=== PATIENT | male | born 1940 | race Caucasian/White ===

== ENCOUNTER → 2023-11-09 11:35 | Outpatient (REF) | payer MEDICARE, OTHER, SELFPAY | LOC: HWRAD 11:35 | PROVIDERS: ATTENDING PHYSICIAN Internal Medicine Critical Care Medicine; FAMILY PHYSICIAN Family Medicine | DX: R91.8 Other nonspecific abnormal finding of lung field (principal) | CPT/HCPCS: 71250 ==

== ENCOUNTER → 2024-01-27 10:06 | Outpatient (REF) | payer MEDICARE, OTHER, SELFPAY | LOC: HWRAD 10:06 | PROVIDERS: ATTENDING PHYSICIAN Nurse Practitioner Family; FAMILY PHYSICIAN Family Medicine | DX: R91.8 Other nonspecific abnormal finding of lung field (principal) | CPT/HCPCS: 71250 ==

== ENCOUNTER → 2024-03-30 09:07 | Outpatient (REF) | payer MEDICARE, OTHER, SELFPAY | LOC: RAD 09:07 | PROVIDERS: ATTENDING PHYSICIAN Internal Medicine Hematology & Oncology; FAMILY PHYSICIAN Family Medicine | DX: C61 Malignant neoplasm of prostate (principal); C79.51 Secondary malignant neoplasm of bone | CPT/HCPCS: 78306; A9503 ==

== ENCOUNTER → 2024-04-02 07:32 | Outpatient (REF) | payer MEDICARE, OTHER, SELFPAY | LOC: RAD 07:32 | PROVIDERS: ATTENDING PHYSICIAN Internal Medicine Hematology & Oncology; FAMILY PHYSICIAN Family Medicine | DX: C61 Malignant neoplasm of prostate (principal); C79.51 Secondary malignant neoplasm of bone | CPT/HCPCS: 71260; 74177; Q9967 ==

== ENCOUNTER 2024-05-13 14:41 | Emergency (ER) | payer MEDICARE, OTHER, SELFPAY ==
[2024-05-13 14:49] VITALS: BP 115/83
[2024-05-13 16:03] VITALS: BP 133/75
--- NOTE | 2024-05-13 16:10 | ED.GENMED ---
History of Present Illness
General
Chief Complaint: Breathing Problem
Time Seen by Provider: 05/13/24 15:56
History of Present Illness
History of Present Illness:
TIME OF INITIAL ENCOUNTER: 4 PM
HPI: The patient presents due to shortness of breath but also has weakness. He states he was hospitalized for 'a lung infection last year' and was told that his 'prostate cancer is back'. Over the past month, he has been feeling weaker and more
short of breath. He has an upcoming appoint with Dr. Carter. He lost weight while he was in the hospital last year and then gained the weight back. He has no lower extremity edema.
EXAM:
GENERAL: Appears somewhat weak and frequently keeps his eyes closed during examination, elevated BMI
HEENT: Moist oral mucosa
CARDIOVASCULAR: No murmurs, normal heart rate, regular rhythm, No chest wall tenderness
PULMONARY: No respiratory distress, breath sounds are clear and equal
ABDOMEN: Soft with no peritoneal signs, no tenderness
NEUROLOGIC: Good strength all extremities, no coordination deficits
PSYCHIATRIC: Appropriate mental status, normal insight and judgement
EXTREMITIES: Nontender, no edema, moves all extremities equally
SKIN: No rash, no lesions
NUMBER AND COMPLEXITY OF PROBLEMS ADDRESSED AT THE ENCOUNTER
� Chronic conditions affecting care: Prostate cancer
� Acute Exacerbation and/or Progression of Chronic Illness: This is a subacute problem
� Differential Diagnosis includes: Anemia, progression of cancer, heart failure, pneumonia
AMOUNT AND/OR COMPLEXITY OF DATA TO BE REVIEWED AND ANALYZED
� I performed an independent evaluation of and my interpretation is:
EKG: Sinus 91, left axis deviation, poor R wave progression no significant change from 04/01/2023
CT: CTA shows no PE
X-rays:
Laboratory Studies: Troponin 0.051, in March it was 0.069, white count hemoglobin normal, D-dimer 0.85
Other:
� Review of other/old records: The patient was admitted here with fatigue and shortness of breath 1 year ago. At that time he had a CTA that was negative for PE and was found to have a small pleural effusion. There also was
concern for metastatic disease at that time. Echo last year was relatively unremarkable
� Clinical information was obtained by an independent historian: Spoke to
� Prescriptions/Medications Considered but not given:
� Further testing considered but not performed:
RISK OF COMPLICATIONS AND/OR MORBIDITY OR MORTALITY OF PATIENT MANAGEMENT
� Social determinants of health affecting care:
Lives at home
� Discussion with other providers: Discussed w/ Raul 'SOB and weak for about a year, may be worse over the past month. RA sats as high as 100% here. Normal CBC, ddimer slightly high, CTA shows no PE, BNP 735 (lower than when
admitted for same last year), trop 0.051 (was flat around 0.060 last year). Echo from last year relatively unremarkable. Not sure there's much to keep him for, but please let me know what you think. I'm thinking he could be managed as outpt, but
says doesn't have appt to see you until June.' - he agrees w/ outpt mgnt and he will have his office reach out to him next week for close follow-up
� Escalation of care including admission/observation vs risk of discharge considered: No clear indication for admission to the hospital
ANY OTHER UPDATES:
7 PM: On reassessment, patient remains well-appearing, room air sats of 100%. Relatively unremarkable ED workup, troponin is less than it was last year with since symptoms. BNP is lower, CTA shows no PE.
Past History
Past History
ED Past Medical History: Cancer (Prostate cancer), Hypercholesterolemia and Other (Rheumatic heart disease)
ED Past Surgical History: Orthopedic and Urological
Phy Exam
Physical Exam
Physical Exam:
See HPI
Scores
Heart Failure Risk
Heart Failure Risk Score: Not Applicable
Course
Orders/Labs/Results
Orders:
Orders
05/13/24 16:08
Electrocardiogram (*1) Urgent
Reason for Study: Shortness of Breath
EKG- Treatment ONCE
05/13/24 16:32
Complete Blood Count/With Diff Urgent
Comprehensive Metabolic Panel Urgent
D-Dimer Urgent
Magnesium Urgent
NT-proBNP Urgent
TSH Reflex To Free T4 Urgent
Troponin I Urgent
05/13/24 17:11
CT Chest Pe Study Urgent
Comment:
Reason For Exam: sob high ddimer
Abnormal Lab Results
05/13/24
16:32
MCHC 32.1 L g/dL
(33.0-37.0)
RDW 15.4 H %
(11.5-14.5)
Absolute Neuts (auto) 6.9 H 10^3/uL
(1.4-6.5)
Absolute Monos (auto) 1.1 H 10^3/uL
(0.1-0.6)
Lymphocytes % 18.2 L %
(20.5-51.1)
Monocytes % 10.5 H %
(1.7-9.3)
D-Dimer 0.85 H ug/mlFEU
(0.00-0.50)
BUN 21 H mg/dl
(9-20)
Glucose 107 H mg/dl
(70-99)
Alkaline Phosphatase 244 H U/L
(38-126)
Troponin I 0.051 H* ng/ml
05/13/24 16:32
05/13/24 16:32
Vital Signs
Initial and Last Documented VS:
Initial Vital Signs
Temp Pulse Resp BP Pulse Ox
97.9 F 101 24 115/83 98
05/13/24 14:49 05/13/24 14:49 05/13/24 14:49 05/13/24 14:49 05/13/24 14:49
Last Documented Vital Signs
Temp Pulse Resp BP Pulse Ox
97.9 F 101 22 133/79 100
05/13/24 14:49 05/13/24 18:22 05/13/24 18:22 05/13/24 18:25 05/13/24 18:22
*Critical Care Note
Total Time (30-74mins, 75-104mins- exclusive of procedures): Not Applicable
ED Attending Note
-
Portions of this chart may have been created with voice recognition software.� Occasional wrong word or��sound alike� substitutions may have occurred due to the inherent limitations of voice recognition software.
Discharge Plan
Departure
Patient Disposition: Home (Routine Discharge)
Date of Disposition: 05/13/24
Time of Disposition: 18:58
Patient with high blood pressure during this ER visit?: Yes
Discharge Problem:
Chronic shortness of breath
Instructions: Shortness of Breath (Dyspnea) (DC)
Prescriptions:
No Action
Centrum Silver Ultra Men's 1 EACH tablet
1 ea PO DAILY
Move Free
1 tab PO DAILY
trazodone 50 mg Tablet
50 mg PO HS
amitriptyline 10 mg Tablet
25 mg PO HS
metoprolol succinate [Toprol XL] 25 mg tablet extended release 24 hr
25 mg PO DAILY Qty: 30 0RF
bicalutamide 50 mg Tablet
50 mg PO DAILY
furosemide 20 mg Tablet
20 mg PO DAILY
Rx Instructions:
last dose 04/26/23
Referrals:
Mauro Cervantes MD [Family Provider] -
Activity Restrictions/Additional Instructions:
I discussed everything with Dr. Carter. He agrees that there is no clear indication for you to be kept in the hospital. However he did say that his office is going to reach out to you to try to get you in sooner for more of an evaluation. Return
here if worse or other concern. I also recommend he follow your primary care doctor.
Interventions
Interventions:
*Risk Screen - Suicide Last Done: 05/13/24 16:22
*General Assessment Last Done: 05/13/24 16:22
*Neglect/Abuse Screening Last Done: 05/13/24 16:22
ED- Fall Risk Assessment Last Done: 05/13/24 16:30
*ED COVID-19 Vaccine History Last Done: 05/13/24 14:49
ED- Cardiac Assessment Last Done: 05/13/24 16:30
ED- Pulmonary Assessment Last Done: 05/13/24 16:30
Discharge Date and Time
Print Language: LAO
[2024-05-13 16:25] VITALS: BMI 30.6
[2024-05-13 16:48] LABS: % Basophils 0.6 % (0-2); % Eosinophils 1.3 % (0-6); % Immature Granulocytes 0.4 % (0-0.5); % Lymphocytes 18.2 % (20.5-51.1); % Monocytes 10.5 % (1.7-9.3); Absolute Basophils 0.1 10^3/uL (0-0.2); Absolute Eosinophils 0.1 10^3/uL (0-0.7); Absolute Lymphocytes 1.8 10^3/uL (1.2-3.4); Absolute Monocytes 1.1 10^3/uL (0.1-0.6); Absolute Neutrophils 6.9 10^3/uL (1.4-6.5); Hematocrit 46.4 % (39.0-52.0); Hemoglobin 14.9 g/dL (13.0-18.0); Mean Corp Hgb Conc. 32.1 g/dL (33.0-37.0); Mean Corpuscular Hgb 28.3 pg (27.0-31.0); Mean Platelet Volume 9.5 fL (7.4-10.4); Nucleated Red Blood Cells % 0 % (-); Platelet Count 361 10^3/uL (130-400); Red Blood Cell Count 5.27 10^6/uL (4.70-6.10); Red Cell Dist. Width 15.4 % (11.5-14.5)
[2024-05-13 17:00] VITALS: BP 144/77
[2024-05-13 17:05] LABS: D-Dimer 0.85 ug/mlFEU (0.00-0.50)
[2024-05-13 17:07] LABS: ALT (SGPT) 23 U/L (0-50); AST (SGOT) 34 U/L (17-59); Albumin 4.1 g/dl (3.5-5.0); Alkaline Phosphatase 244 U/L (38-126); Blood Urea Nitrogen 21 mg/dl (9-20); Calcium 9.6 mg/dl (8.4-10.2); Carbon Dioxide 22 mmol/L (22-30); Chloride 106 mmol/L (98-107); Estimated Creatinine Clearance 107 ml/min; Glucose 107 mg/dl (70-99); Potassium 4.7 mmol/L (3.5-5.1); Sodium 140 mmol/L (135-145); Total Bilirubin 0.5 mg/dl (0.2-1.3); Total Protein 6.8 g/dl (6.3-8.2); eGFR > 60.00
[2024-05-13 17:22] LABS: NT-proBNP 735 pg/ml; Troponin I 0.051 ng/ml
[2024-05-13 17:37] LABS: TSH Reflex To Free T4 1.27 uIU/ml (0.47-4.68)
[2024-05-13 18:14] VITALS: BP 64/40
[2024-05-13 18:25] VITALS: BP 133/79
== END 2024-05-13 19:24 | disposition home or self-care (01) ==
LOC: EMR 14:41
PROVIDERS: EMERGENCY PHYSICIAN Emergency Medicine; FAMILY PHYSICIAN Family Medicine
DX: R06.02 Shortness of breath (principal); R03.0 Elevated blood-pressure reading, without diagnosis of hypertension
CPT/HCPCS: 99285; 71275; 80053; 83735; 83880; 84443; 84484; 85025; 85379; 93005; Q9967

== ENCOUNTER → 2024-05-21 08:34 | Outpatient (REF) | payer MEDICARE, OTHER, SELFPAY | LOC: DHCBC/DCA 08:34 | PROVIDERS: ATTENDING PHYSICIAN Internal Medicine Cardiovascular Disease; FAMILY PHYSICIAN Family Medicine | DX: R06.02 Shortness of breath (principal) | CPT/HCPCS: 78452; 93017; A9500; J2785 ==

== ENCOUNTER → 2024-05-30 12:36 | Outpatient (REF) | payer MEDICARE, OTHER, SELFPAY | LOC: HWRAD 12:36 | PROVIDERS: ATTENDING PHYSICIAN Internal Medicine Hematology & Oncology; FAMILY PHYSICIAN Family Medicine; REFERRING PHYSICIAN Internal Medicine Hematology & Oncology | DX: C61 Malignant neoplasm of prostate (principal); C79.51 Secondary malignant neoplasm of bone | CPT/HCPCS: 70492; 71260; Q9967 ==

== ENCOUNTER 2024-06-11 04:19 | Inpatient (IN) | payer MEDICARE, OTHER, SELFPAY ==
[2024-06-10 22:29] VITALS: BP 142/76; BMI 30.6
[2024-06-10 22:32] VITALS: BP 142/76
[2024-06-10 22:49] LABS: % Basophils 0.3 % (0-2); % Eosinophils 0.7 % (0-6); % Immature Granulocytes 0.4 % (0-0.5); % Lymphocytes 12.7 % (20.5-51.1); % Monocytes 8.6 % (1.7-9.3); % Neutrophils 77.3 % (42.2-75.2); Absolute Basophils 0.1 10^3/uL (0-0.2); Absolute Eosinophils 0.1 10^3/uL (0-0.7); Absolute Immature Granulocytes 0.1 10^3/uL (0-0.05); Absolute Lymphocytes 2.1 10^3/uL (1.2-3.4); Absolute Monocytes 1.4 10^3/uL (0.1-0.6); Absolute Neutrophils 12.7 10^3/uL (1.4-6.5); Hematocrit 48.6 % (39.0-52.0); Hemoglobin 15.9 g/dL (13.0-18.0); Mean Corp Hgb Conc. 32.7 g/dL (33.0-37.0); Mean Corpuscular Hgb 28.1 pg (27.0-31.0); Mean Corpuscular Volume 85.9 fL (80.0-94.0); Mean Platelet Volume 9.6 fL (7.4-10.4); Nucleated Red Blood Cells % 0 % (-); Platelet Count 326 10^3/uL (130-400); Red Blood Cell Count 5.66 10^6/uL (4.70-6.10); Red Cell Dist. Width 15.5 % (11.5-14.5); White Blood Cell Count 16.4 10^3/uL (4.8-10.8)
--- NOTE | 2024-06-10 22:55 | ED.GENMED ---
History of Present Illness
<DUSTY Gil - Last Filed: 06/10/24 23:43>
General
Chief Complaint: Chest Pain
Source: patient
Time Seen by Provider: 06/10/24 22:36
Nursing documentation reviewed up to this point in time: agreed with
History of Present Illness
History of Present Illness:
Pt is a 83 yo M with a history of prostate cancer who presents to the ED tonight via EMS with chest pain, shortness of breath and weakness. Pt states that the symptoms have been present for over a month now. He states that his chest pain got worse
tonight, so he came to the ED. Pt states that first his pain started in his back and is now located in his left chest. Pt also admits to having worsening shortness of breath with activity. Pt reports that his feet feel heavy when walking which
causes him weakness. Pt reports that he typically coughs up clear mucus. Pt denies hemoptysis, diarrhea, hematochezia, fever, chills, headache, dizziness, lightheaded, abdominal pain, recent illness. Pt states that he is on methylprednisone and
oxycodone for his symptoms. He states that the oxycodone initial helped with his pain, but that it does not help to alleviate his symptoms anymore.
Pt was seen in ED on 05/13 for shortness of breath and weakness. Chest CT showed a pulmonary nodule. Pt states that he was supposed to follow up with pulmonology but states that he did not see them. Pt states that he has a history of prostate cancer
and had his prostate removed in 2002. Pt states that recently his PSA has increased and he is now taking cancer medicine Xtandi. Pt states that he follows up with cardiology, urology, oncology, and PCP.
Past History
<DUSTY Gil - Last Filed: 06/10/24 23:43>
Past History
ED Past Medical History: Cancer (Prostate cancer), Hypercholesterolemia and Other (Rheumatic heart disease)
ED Past Surgical History: Orthopedic and Urological
Review of Systems
<Peg Suggs [facility] - Last Filed: 06/10/24 23:43>
Review of Systems
Allergies reviewed?: Yes
Constitutional: Reports no symptoms
EENT: Reports no symptoms
Respiratory: Reports cough and other (shortness of breath)
Cardiac: Reports chest pain
ABD/GI: Reports no symptoms
: Reports no symptoms
Neurological: Reports weakness
Phy Exam
<Peg Suggs [facility] - Last Filed: 06/10/24 23:43>
General Physical Exam
General Presentation: well appearing
General age: appears stated age
General Skin: warm
General Habitus: normal
General Mental: alert
General Hydration: appears well hydrated
Cardiovascular Exam
Cardiovascular Exam: regular rate/rhythm and no edema
Pulmonary Exam
Pulmonary Exam: lungs clear
Gastrointestinal Exam
Gastrointestinal Exam: normal bowel sounds, non tender, soft and distended
Skin Exam
Skin Exam: normal color
Scores
<Nathaniel Miller DO - Last Filed: 06/11/24 02:06>
Heart Failure Risk
Heart Failure Risk Score: Yes
History of Stroke or TIA: No
History of intubation for respiratory distress: No
Heart rate on ED arrival >/= 110: No
SaO2 <90% on arrival on room air: No
HR >/=110 during 3min walk test (or too ill to perform test): Yes
ECG has acute ischemic changes: No
Urea >/=12mmol/L (BUN 33.6mg/dL): Yes
Serum CO2>/=35mmol/L: No
Troponin I or T elevated to TX Level (0.4mg/dL): No
NT-proBNP >/=5,000ng/L (5,000pg/ml): No
HF Risk Score: 3
Admission Status: HIGH RISK 15.9% Consider SNF treatment or admission to hospital
Heart Score for Chest Pain Patients
STEMI patient?: No
History: Moderately Suspicious
ECG: Nonspecific Repolarization
Age: >/= 65 years
Risk Factors: 1 or 2 Risk Factors
Troponin: >1 - <3 x Normal Limit
Heart Score for Chest Pain Patients: 6
Heart Score Risk: 20.3% MACE over next 6 weeks
Course
<Peg Suggs, [facility] - Last Filed: 06/10/24 23:43>
Orders/Labs/Results
Orders:
Orders
06/10/24 22:34
EKG [Electrocardiogram (*1)] Urgent
Reason for Study: Tachycardia
EKG- Treatment ONCE
06/10/24 22:41
Complete Blood Count/With Diff Urgent
Comprehensive Metabolic Panel Urgent
Pro-BNP [NT-proBNP] Urgent
Troponin I Urgent
06/11/24 00:30
CT Chest Pe Study Urgent
Comment:
Reason For Exam: Chest pain, dyspnea, prostate cancer
Abnormal Lab Results
06/10/24
22:41
WBC 16.4 H 10^3/uL
(4.8-10.8)
MCHC 32.7 L g/dL
(33.0-37.0)
RDW 15.5 H %
(11.5-14.5)
Abs Immat Gran (auto) 0.1 H 10^3/uL
(0-0.05)
Absolute Neuts (auto) 12.7 H 10^3/uL
(1.4-6.5)
Absolute Monos (auto) 1.4 H 10^3/uL
(0.1-0.6)
Neutrophils % 77.3 H %
(42.2-75.2)
Lymphocytes % 12.7 L %
(20.5-51.1)
BUN 33 H mg/dl
(9-20)
Glucose 158 H mg/dl
(70-99)
Alkaline Phosphatase 269 H U/L
(38-126)
Troponin I 0.094 H* ng/ml
06/10/24 22:41
06/10/24 22:41
Vital Signs
Initial and Last Documented VS:
Initial Vital Signs
Temp Pulse Resp BP Pulse Ox
98.1 F 95 24 142/76 97
06/10/24 22:29 06/10/24 22:29 06/10/24 22:29 06/10/24 22:29 06/10/24 22:29
Last Documented Vital Signs
Temp Pulse Resp BP Pulse Ox
98.1 F 91 24 139/77 95
06/10/24 22:29 06/10/24 23:45 06/10/24 23:45 06/10/24 23:00 06/10/24 23:45
<Nathaniel Miller, DO - Last Filed: 06/11/24 02:06>
Orders/Labs/Results
Orders:
Orders
06/10/24 22:34
EKG [Electrocardiogram (*1)] Urgent
Reason for Study: Tachycardia
EKG- Treatment ONCE
06/10/24 22:41
Complete Blood Count/With Diff Urgent
Comprehensive Metabolic Panel Urgent
Pro-BNP [NT-proBNP] Urgent
Troponin I Urgent
06/11/24 00:30
CT Chest Pe Study Urgent
Comment:
Reason For Exam: Chest pain, dyspnea, prostate cancer
Abnormal Lab Results
06/10/24
22:41
WBC 16.4 H 10^3/uL
(4.8-10.8)
MCHC 32.7 L g/dL
(33.0-37.0)
RDW 15.5 H %
(11.5-14.5)
Abs Immat Gran (auto) 0.1 H 10^3/uL
(0-0.05)
Absolute Neuts (auto) 12.7 H 10^3/uL
(1.4-6.5)
Absolute Monos (auto) 1.4 H 10^3/uL
(0.1-0.6)
Neutrophils % 77.3 H %
(42.2-75.2)
Lymphocytes % 12.7 L %
(20.5-51.1)
BUN 33 H mg/dl
(9-20)
Glucose 158 H mg/dl
(70-99)
Alkaline Phosphatase 269 H U/L
(38-126)
Troponin I 0.094 H* ng/ml
06/10/24 22:41
06/10/24 22:41
Vital Signs
Initial and Last Documented VS:
Initial Vital Signs
Temp Pulse Resp BP Pulse Ox
98.1 F 95 24 142/76 97
06/10/24 22:29 06/10/24 22:29 06/10/24 22:29 06/10/24 22:29 06/10/24 22:29
Last Documented Vital Signs
Temp Pulse Resp BP Pulse Ox
98.1 F 91 24 139/77 95
06/10/24 22:29 06/10/24 23:45 06/10/24 23:45 06/10/24 23:00 06/10/24 23:45
<DUSTY Gil - Last Filed: 06/10/24 23:43>
MDM/Problems Addressed
Differential Diagnosis Includes:
Metastasis, TX, CHF
<DUSTY Gil - Last Filed: 06/10/24 23:43>
*Critical Care Note
Total Time (30-74mins, 75-104mins- exclusive of procedures): Not Applicable
ED Attending Note
<DUSTY Gil - Last Filed: 06/10/24 23:43>
-
Portions of this chart may have been created with voice recognition software.� Occasional wrong word or��sound alike� substitutions may have occurred due to the inherent limitations of voice recognition software.
<Nathaniel Miller DO - Last Filed: 06/11/24 02:06>
ED Attending Note
Patient seen and examined by attending physician: Yes
I performed the substantive portion of visit, reviewed & personally made and approve the management plan that is documented in note by myself or JAMES.: Yes
ED Attending Note:
83-year-old male presents to the emergency department for shortness of breath. He states he has been having shortness of breath and chest pain off and on for the last month. Tonight his chest pain worsened and his shortness of breath became much
more severe. Patient has a history of prostate cancer and longstanding weakness. Patient has been feeling very weak lately. Patient was seen in conjunction with the PA student. I have reviewed and agree with the history and treatment plan
presented. On my independent physical exam, patient is awake, alert, and oriented x3
Vital signs are stable. Patient not hypoxic
Nursing note reviewed. I agree with nursing documentation up to this point in time.
Home Meds and allergies reviewed.
NUMBER AND COMPLEXITY OF PROBLEMS ADDRESSED AT THE ENCOUNTER
� Chronic conditions affecting care: Return of prostate cancer, weakness,
� Acute Exacerbation and/or Progression of Chronic Illness:
� Differential Diagnosis includes: Worsening of cancer, anemia chronic disease, pneumonia, CHF, lytic lesions in the spine
AMOUNT AND/OR COMPLEXITY OF DATA TO BE REVIEWED AND ANALYZED
I performed an independent evaluation of the following and my interpretation is:
EKG: EKG shows normal sinus rhythm 96 with present. Compared with previous EKG dated 2023, fusion complexes are present
Pulse Ox: Not Hypoxic
Corrections Lieutenant: Sinus Rhythm
CT:CTA CHEST w iv contrast
IMPRESSION:
Comparison: 05/13/2024.
Good bolus, mild motion artifact. No evidence of a pulmonary embolism.
Mild cardiomegaly with coronary artery disease.
No acute thoracic aortic pathology.
Low lung volumes with dependent atelectasis. No new focal consolidation. Unchanged pulmonary nodules within the right middle and lower lobes.
Extensive blastic metastatic disease, similar compared to the prior. The largest lesion involves the T2 vertebral body with possible slight extension into the ventral epidural space.
Results faxed/electronically transmitted to the ER and radiology department at 1:49 AM ET.
Andrey Cohen M.D.
X-rays:
Ultrasound:
Laboratory Studies: Troponin is elevated up from 0.51 at previous ER visit 1 month ago. White blood cell count is elevated at 16.4. Up from 10.0 on 05/13/2024
Other:
Review of other/old records: CT chest PE study was negative for PE on 05/13/2024
Clinical information was obtained by an independent historian:
Prescriptions/Medications Considered but not given:
Further testing considered but not performed:
RISK OF COMPLICATIONS AND/OR MORBIDITY OR MORTALITY OF PATIENT MANAGEMENT
Social determinants of health affecting care: Good Social Support
Discussion with other providers:
Escalation of care including admission/observation vs risk of discharge considered: After being observed in the emergency department, patient is not stable for discharge. Patient to be admitted to the hospitalist this.
CRITICAL CARE NOTE: Not applicable
Total Time (exclusive of procedures):
Update:
Discharge Plan
Departure
Patient Disposition: Admit
Date of Disposition: 06/11/24
Time of Disposition: 02:04
Admit to: Telemetry
Presentation/result/management discussed w/ accepting MD/DO: Hospitalist
Condition: Fair
Discharge Problem:
Chest pain, Elevated troponin
Prescriptions:
No Action
Centrum Silver Ultra Men's 1 EACH tablet
1 ea PO DAILY
furosemide 20 mg Tablet
40 mg PO DAILY
pantoprazole 20 mg Tablet,Delayed Release (Dr/Ec)
20 mg PO DAILY
methylprednisolone 24 mg Tablet
240 mg PO
oxycodone 5 mg Tablet
5 mg PO Q4H PRN (Reason: pain)
Xtandi 40 mg Tablet
40 mg PO DAILY
Referrals:
Mauro Cervantes MD [Family Provider] -
Interventions
Interventions:
*Risk Screen - Suicide Last Done: 06/10/24 22:29
*General Assessment Last Done: 06/10/24 22:29
*Neglect/Abuse Screening Last Done: 06/10/24 22:29
ED- Fall Risk Assessment Last Done: 06/10/24 22:29
*ED COVID-19 Vaccine History Last Done: 06/10/24 22:29
ED- Cardiac Assessment Last Done: 06/10/24 22:38
Discharge Date and Time
Print Language: CHINESE
[2024-06-10 23:00] VITALS: BP 139/77
[2024-06-10 23:04] LABS: ALT (SGPT) 22 U/L (0-50); AST (SGOT) 35 U/L (17-59); Albumin 4.1 g/dl (3.5-5.0); Alkaline Phosphatase 269 U/L (38-126); Blood Urea Nitrogen 33 mg/dl (9-20); Calcium 9.6 mg/dl (8.4-10.2); Carbon Dioxide 26 mmol/L (22-30); Chloride 102 mmol/L (98-107); Estimated Creatinine Clearance 106 ml/min; Glucose 158 mg/dl (70-99); Potassium 4.6 mmol/L (3.5-5.1); Sodium 139 mmol/L (135-145); Total Bilirubin 0.5 mg/dl (0.2-1.3); Total Protein 6.9 g/dl (6.3-8.2); eGFR > 60.00
[2024-06-10 23:23] LABS: NT-proBNP 934 pg/ml; Troponin I 0.094 ng/ml
[2024-06-11] VITALS (13 sets, daily range): BP systolic 130–176; BP diastolic 66–92; BMI 30.1
[2024-06-11] MEDS: DILAUDID 0.5 MG IV (02:24)
--- NOTE | 2024-06-11 04:09 | HPS.HSE ---
Family Physician
-
Family Physician: Mauro Cervantes
Chief Complaint
-
Chest Pain
History of Present Illness
Patient is an 83y M with PMH significant for metastatic prostate cancer who presents to ED complaining of chest pain. Patient states that he has been having intermittent left-sided chest pain for the past few months. He has been evaluated as an
outpatient by his PCP and Cardiology. He underwent stress test on 05/21/24 which revealed no evidence for active ischemia. LVEF was reportedly low - though visual estimation was stated to be normal.
Patient notes that he has continued to have intermittent symptoms. His pain is associated with 'heavy' feet - 'feels like walking on cinder blocks' as well as SOB with activity / exertion.
He denies any cough, fevers / chills, N/V/D or urinary complaints.
He was started on steroid dose pack for pain about 3 weeks ago. He was started on oxycodone for pain control about one week ago - this worked for a time.
Over the past 2 days however, his pain has again increased despite these medications.
This evening his pain was severe and he presented to the ED for further evaluation.
Patient states that XRT has been discussed for his prostate cancer; however, he has yet to start this.
Medical History
Past Medical History
Past Medical History: Reports Other
Additional Past Medical History:
Prostate Cancer s/p Chemo then Prostatectomy - Recurrence 2022
Dyslipidemia
Rheumatic Fever (9yo)
Bladder Stones
Osteoarthritis
Past Surgical History: Reports Other
Additional Past Surgical History:
Prostatectomy
Bilateral BRENDAN
Cystoscopy / Bladder Stone removal
Skin Cancer Excision
T&A
Social History
Tobacco: Non-smoker
Alcohol: Occasional
Drug: None
Family History
Family History: Other (Father / Brother: Prostate Cancer)
Allergies / Home Medications
Allergies reflects when Allergies were last updated in [facility].
Home Medications with original date entered in [facility]
Allergy/Medication List:
Allergies
Allergy/AdvReac Type Severity Reaction Status Date / Time
tetanus toxoid, adsorbed Allergy Hives Verified 05/13/24 14:57
Home Medications
opazbihr-nm-syxnx 300 mcg-K 60 mcg-lycop 600 mcg-lutein 300 mcg tablet (Centrum Silver Ultra Men's) 1 ea PO DAILY Supplement 04/10/10
furosemide 20 mg tablet 40 mg PO DAILY 04/26/23
enzalutamide 40 mg tablet (Xtandi) 160 mg PO DAILY 06/11/24
methylprednisolone 24 mg tablet 24 mg PO DAILY 06/11/24
oxycodone 5 mg tablet 5 mg PO Q4H PRN pain 06/11/24
pantoprazole 20 mg tablet,delayed release 20 mg PO DAILY 06/11/24
Review of Systems
-
History Source: Patient
A 12 point ROS was completed and negative except as noted: Yes
Constitutional: Reports Fatigue; Denies Fever or Chills
EENT: Denies Sore Throat
Respiratory: Reports Trouble Breathing; Denies Cough
Cardiac: Reports Chest Pain; Denies Diaphoresis, Palpitations or Syncope
Abdomen/GI: Denies Abdominal Pain, Nausea, Vomiting, Diarrhea or Bloody Stools
: Denies Dysuria, Frequency or Flank Pain
Musculoskeletal: Denies Joint Pain, Joint Swelling or Edema
Neurological: Denies Dizzy or Headache
Psych: Denies Depression or Anxiety
Physical Exam
Vital Signs
Vital Signs
Temp Pulse Resp BP Pulse Ox
98.1 F 84 16 154/86 96
06/10/24 22:29 06/11/24 03:00 06/11/24 03:00 06/11/24 02:00 06/11/24 03:00
Physical Exam
General: Other (83y M in no acute distress.)
HEENT: Moist mucous membranes and PERRLA
Respiratory: Clear; No Wheezes, Rales or Rhonchi
Cardiac: S1/S2 and Regular Rhythm; No Murmur
GI: Soft, Non Tender, Non Distended and Normal Bowel Sounds
Musculoskeletal: No Clubbing, No Cyanosis and No Edema
Neuro: AO x 3
Laboratory Results
-
06/10/24 22:41
06/10/24 22:41
Laboratory Results
Total Bilirubin 0.5 mg/dl (0.2-1.3) 06/10/24 22:41
AST 35 U/L (17-59) 06/10/24 22:41
ALT 22 U/L (0-50) 06/10/24 22:41
Alkaline Phosphatase 269 U/L (38-126) H 06/10/24 22:41
Troponin I 0.094 ng/ml H* 06/10/24 22:41
Impression/Plan
-
A/P: Patient is an 83y M with PMH significant for metastatic prostate cancer who presents to ED complaining of chest pain.
Left Sided Chest Pain
- Admit for further evaluation and treatment.
- Suspect that discomfort is related to bony metastatic disease.
- Had recent stress test which was unremarkable.
- Troponin mildly elevated - not significantly changed from prior values.
- Continue to follow to peak and monitor for changes in symptoms.
- Check Echo (was scheduled as an outpatient). EF unclear (measured at 39% on stress - but visually normal per report).
- Hold Lasix for now as patient does not appear grossly volume overloaded.
- Cardiology evaluation.
- Adjust pain control regimen as needed for improvement in symptoms.
Metastatic Prostate Cancer
- As above. Continue methylprednisolone.
- Continue oxycodone and increase to 10mg dose.
- Oncology evaluation - would likely benefit from XRT for additional pain control.
- Continue Xtandi.
DVT Prophylaxis: SCDs
Code Status: Full
--- NOTE | 2024-06-11 07:24 | PTCARENOTE ---
received patient from the ED. AAOx3. complaining of left chest pain. 1/10 pain at rest. 5/10 pain with inhalation. non radiating pain. lungs clear throughout, 97% on RA. SR on tele. complains of shortness of breath-chronic per patient. patient self
caths at home; 2x a day. reviewed plan of care with patient and verbalized understanding. NPO.
patients medications sent to pharmacy.
--- NOTE | 2024-06-11 07:26 | W.PN.HOSP.TC ---
Today's Communication/Plan
-
F/U further cardiology and Oncology recs
TTE
monitor pain on increased oxycodone dosing and lidocaine patch
post cardiology recs/ Trop declining will order PT
Assessment / Plan
Assessment / Plan
Mr. Brandyn Pena is a 83 yo man with hx metastatic prostate CA with on-going outpatient work-up left-sided chest pain (neg stress test 05/21/24) s/p steroid dose pack presents with worsening pain.
chest CT - no acute thoracic aortic pathology; extensive blastic metastatic disease similar to prior - largest involved T2 vertebral body
Left Sided Chest Pain
- Troponin 0.094
- discomfort may be 2/2 bony metastatic disease versus ACS although recent stress test unremarkable and history not very convincing.
- Check Echo (was scheduled as an outpatient). EF unclear (measured at 39% on stress - but visually normal per report).
- Hold Lasix for now as patient does not appear grossly volume overloaded.
- Cardiology evaluation.
- trial of Lidocaine patch
- QUILLER HAND oxycodone increased from 5mg q4h PRN to 10mg
- IV morphine PRN
- PT/OT
Metastatic Prostate Cancer
- As above. Continue methylprednisolone.
- Continue oxycodone and increase to 10mg dose.
- Oncology evaluation - would likely benefit from XRT for additional pain control.
- Continue Xtandi.
DVT Prophylaxis: SCDs
Code Status: Full
Anticipated Discharge: 24 - 48 hours
Subjective/Interval History
-
Date of Service: June 11, 2024
he has pain left side of chest not very tender to palpation but hurts with any twisting of his body or trying to get up therefore has difficultly ambulating
Objective Data
-
Labs:
Laboratory Results
06/10/24
22:41
WBC 16.4 H
Hgb 15.9
Hct 48.6
Plt Count 326
Sodium 139
Potassium 4.6
Chloride 102
Carbon Dioxide 26
BUN 33 H
Creatinine 0.7
Glucose 158 H
Calcium 9.6
Total Bilirubin 0.5
AST 35
ALT 22
Alkaline Phosphatase 269 H
Vital Signs:
Vital Signs
Temp Pulse Resp BP Pulse Ox
97.9 F 88 16 151/70 96
06/11/24 06:21 06/11/24 06:21 06/11/24 06:21 06/11/24 06:21 06/11/24 06:21
Review of Systems
-
History Source: Patient
All other systems: Reviewed and negative
Physical Exam
-
General: No Apparent Distress and Conversant
HEENT: PERRLA
Respiratory: Clear to Auscultation; Negative Wheezes
Cardiac: Regular Rhythm and S1/S2
GI: Soft and Nontender
Musculoskeletal: No Edema
Skin: Warm and Dry; Negative Rash
Neuro: AO x 3
Psych: Calm
Data Reviewed
-
Diagnostic Radiology: Report Reviewed by me
Labs: Labs Reviewed by me
--- NOTE | 2024-06-11 07:39 | CON.CAR ---
Addendum entered and electronically signed by Asya Ochoa MD 06/11/24 12:23:
I saw and examined the patient.
The [employer]'s note was reviewed and I agree with the note.
Comment: He is here for recurrent chest discomfort mildly elevated troponins with stable but abnormal EKG in the setting of metastatic prostate cancer. Some features of his chest pain are atypical but then other features such as dyspnea on exertion
when walking his dog is concerning for coronary disease.
I spoke with oncology (Dr. Patterson). Patient is on first-line therapy for metastatic prostate cancer and feels that survival in this patient is greater than 1 year and that there is no contraindication to aggressive cardiac treatment.
Discussed at length the risks and benefits of proceeding with cardiac catheterization to define coronary anatomy in the setting of recurrent chest pain and abnormal troponins. Recent stress test noted.
Plan at this time:
-Left heart catheterization in the morning. N.p.o. after midnight.
-IV heparin
-Toprol-XL for blood pressure, newly added. Continue to follow.
-Atorvastatin for cholesterol.
-EKG is stable with stable QT on current prostate cancer treatment.
-Oncology tells me his PSA is rising they are likely going to change medications in the future. Follow-up with oncology. Follow-up with urology (Dr. Mendez).
Exam is stable. No heart failure on exam. No significant murmurs and clear lungs. Echocardiogram pending.
Original Note:
Consultation
Consultation Request
Date/Time Consultation Requested: 06/11/24 at 0626
Date/Time Consultation Performed: 06/11/24 at 0817
Requesting Provider: Dr. Pop
Performing Provider: Dr. Asya Ochoa
Reason for Consultation: Chest pain
Medical History
-
History of Present Illness:
Patient came to ER last night with chest pain and recurrent JORGENSEN and is now admitted with elevated troponin and cardiology has been consulted. Patient was seen in [facility] ER for chest pain on 05/13/2024 and troponin was elevated at
0.051. Patient already had a previously scheduled appointment to see Dr. Carter in the office as a new patient on 05/16/2024 and therefore was discharged to home. When he saw Dr. Carter in the office he reported weight gain and was restarted on
Lasix 40 mg daily. Patient was also scheduled for Lexiscan nuclear stress test with results noted above. Patient had echo 04/01/2023 that showed preserved EF, but EF was down to 39% on stress test. There was no evidence of ischemia. Patient
returned to ER last night with complaints of JORGENSEN and exertional chest pain. There are reports that he has metastatic lesions that might be causing his pain, but his troponin is elevated higher than previous and was 0.094 initially and now 0.097.
Patient is pain-free at rest.
PMH:
EF 37% by Lexiscan mibi 05/21/24, but 72% by echo 04/01/23
Metastatic prostate cancer
Hyperlipidemia, LDL 195
Past Medical History
Past Medical History: Other (in HPI)
Past Surgical History: Orthopedic and Urological (prostatectomy)
Social History
Tobacco: Non-Smoker
Alcohol: None
Drug: None
Personal: Partner
Living: With Family
Family History
Family History: Cancer
Allergies / Home Medications
Allergy/AdvReac Type Severity Reaction Status Date / Time
tetanus toxoid, adsorbed Allergy Hives Verified 05/13/24 14:57
�Medication �Instructions �Recorded �Confirmed �Type
sohtwkqd-lz-lwcjz 300 mcg-K 60 1 ea PO DAILY Supplement 04/10/10 06/11/24 History
mcg-lycop 600 mcg-lutein 300 mcg
tablet (Centrum Silver Ultra Men's)
furosemide 20 mg tablet 40 mg PO DAILY 04/26/23 06/11/24 History
enzalutamide 40 mg tablet (Xtandi) 160 mg PO DAILY 06/11/24 06/11/24 History
methylprednisolone 24 mg tablet 24 mg PO DAILY 06/11/24 06/11/24 History
oxycodone 5 mg tablet 5 mg PO Q4H PRN pain 06/11/24 06/11/24 History
pantoprazole 20 mg tablet,delayed 20 mg PO DAILY 06/11/24 06/11/24 History
release
Review of Systems
-
History Source: Patient
All other systems: Negative unless noted
Physical Exam
Vital Signs
Temp Pulse Resp BP Pulse Ox
97.9 F 88 16 151/70 96
06/11/24 06:21 06/11/24 06:21 06/11/24 06:21 06/11/24 06:21 06/11/24 06:21
GEN: NAD. AAOx3
HEENT: EOMI, MMM
LUNGS: RA. CTA B/L, no wheezes/rales
CV: Reg, S1/S2, no murmur
ABD: soft, BS+, NT, ND
EXT: No clubbing, cyanosis, lesions or edema B/L
NEURO: Gross non-focal
SKIN: Warm, dry and pink. No rash
Lab Results
06/10/24 22:41
06/10/24 22:41
Troponin I 0.094 ng/ml H* 06/10/24 22:41
Puo-E-Brydneisfvt Pept 934 pg/ml 06/10/24 22:41
Impression / Plan
-
PCP: Dr. Cervantes
Cardiology: Dr. Carter
Impression:
Admitted with recurrent chest pain and elevated Troponin 06/10/24
Elevated Troponin, possible ACS
Recent ER visit for JORGENSEN and elevated Troponin 05/13/24
EF 37% by Lexiscan mibi 05/21/24, but 72% by echo 04/01/23
Metastatic prostate cancer
Hyperlipidemia, LDL 195
Hyperglycemia, HgbA1c 6.5% and new diagnosis of DM 2
Lexiscan nuclear stress test 05/21/2024: Myocardial perfusion imaging without definite evidence of scan ischemia or scar, inferior soft tissue attenuation artifact present, EF 39%
Echo 04/01/23: Normal BiV size and function without wall motion abnormality, mild concentric LVH, no significant valve disease
Echo 06/11/24: study pending
Plan:
-Patient came to ER last night with chest pain and recurrent JORGENSEN and is now admitted with elevated troponin and cardiology has been consulted. Patient was seen in [facility] ER for chest pain on 05/13/2024 and troponin was elevated at
0.051. Patient already had a previously scheduled appointment to see Dr. Carter in the office as a new patient on 05/16/2024 and therefore was discharged to home. When he saw Dr. Carter in the office he reported weight gain and was restarted on
Lasix 40 mg daily. Patient was also scheduled for Lexiscan nuclear stress test with results noted above. Patient had echo 04/01/2023 that showed preserved EF, but EF was down to 39% on stress test. There was no evidence of ischemia. Patient
returned to ER last night with complaints of JORGENSEN and exertional chest pain. There are reports that he has metastatic lesions that might be causing his pain, but his troponin is elevated higher than previous and was 0.094 initially and now 0.097.
Patient is pain-free at rest.
-ECG reviewed by me shows IC RBBB. No acute ischemic changes.
-Recheck ECG, ordered by me
-Check echo, ordered by me. EF was 39% by nuclear imaging 05/21/2024 but had previously been normal by echo 04/01/2023
-Start heparin drip now, ordered by me
-Continue aspirin 81 mg daily as ordered
-Troponin 0.051 initially and trended up to 0.091. Will trend to peak. Troponin elevation could be ACS/NSTEMI, but await echo and cath results.
-Plan will be for cardiac cath in a.m.
-Outpatient dose of Lasix 40 mg daily was held on admission, will restart. proBNP 934 which is moderate for him. No evidence of pleural effusion or acute HF on CT chest 06/11/2024
-CT chest without PE 06/11/2024, but there are extensive blastic osseous metastasis as well as a lytic lesion involving the T3 vertebral body
-HgbA1c 6.5% without previous for comparison and this was presumably a new diagnosis of DM 2
-LDL 195, will start atorvastatin 80 mg daily. Patient was not taking a statin prior to admission.
[2024-06-11 08:04] LABS: Troponin I 0.097 ng/ml
[2024-06-11 08:34] LABS: Glycohemoglobin (HgbA1c) 6.5 % (4.0-5.6)
[2024-06-11] MEDS: PROTONIX 20 MG PO (08:38)
[2024-06-11] MEDS: TYLENOL 1000 MG PO ×3 (08:38→21:07)
[2024-06-11] MEDS: LOW STRENGTH ASPIRIN 81 MG PO (08:38)
[2024-06-11] MEDS: NON-FORMULARY ITEM 160 MG PO (08:38)
[2024-06-11] MEDS: LIDOCAINE 4% PATCH 1 PATCH TOPICAL (08:47)
[2024-06-11] MEDS: PHATP 1 UNIT PO (10:37)
[2024-06-11] MEDS: MEDROL PO (10:38)
[2024-06-11 10:42] LABS: HDL Cholesterol 52 mg/dl; LDL Cholesterol, Calculated 195 mg/dl; Total Cholesterol 279 mg/dl (50-199); Triglyceride 161 mg/dl (10-149); Very Low Density Lipoprotein 32 mg/dl (0-30)
[2024-06-11 11:39] LABS: APTT 31.5 Sec (23.4-35.0)
[2024-06-11 11:50] LABS: Troponin I 0.109 ng/ml
[2024-06-11] MEDS: HEPARIN 25000 UNITS/250 ML IV (12:02)
[2024-06-11] MEDS: LASIX 40 MG PO (12:02)
[2024-06-11] MEDS: MEDROL 4 MG PO ×2 (13:05→16:08)
[2024-06-11] MEDS: TOPROL XL 25 MG PO (13:07)
--- NOTE | 2024-06-11 14:35 | PTCARENOTE ---
patient straight cathing himself with straight cath kit.
--- NOTE | 2024-06-11 14:52 | PTCARENOTE ---
patient sig other reports patient has not had a bowel movement in 3 days. patient not requesting anything at this time. will continue ot monitor.
--- NOTE | 2024-06-11 15:34 | CON.ONC ---
Documented by User: MELISSA Young 06/11/24 16:09
Impression
Impression
metastatic prostate cancer -CT chest 05/30/2024 showed extensive sclerotic bone lesions without fracture. tiny stable right lung nodules decreased compared to 1 month ago.�His most recent PSA Feb 2024 was 33.22.
right inguinal hernia containing bladder
Admitted with recurrent chest pain, Elevated Troponin, possible ACS
Plan
Plan
on heparin gtt, plan for cath -management per cardiology
check PSA
continue enzalutamide 40mg daily
Lupron will be continued OP upon discharge
Plan to start bone ppx after dental clearance OP
OP follow up with radiation oncology for palliative XRT to spinal lesion
Patient History
History of Present Illness
83yo M with metastatic prostate cancer known to Dr. Carney presented with chest pain, JORGENSEN, and declining exercise tolerance. His troponin is elevated and has been seeing Dr. Carter. His initial evaluation notable for WBC 16.4, Hgb 15.9, platelets
326,000, nml renal function, Tbili AST/ALT, Alk phos elevated to 269 and troponin 0.094.
Regarding his metastatic prostate cancer, he is currently on Lupron and xtandi. His most recent CT chest 05/30/2024 showed extensive sclerotic bone lesions without fracture. tiny stable right lung nodules decreased compared to 1 month ago.�His most
recent PSA Feb 2024 was 33.22.
Clinically, denies fever, chills, cough, n/v/d or abdominal pain. He has intermittent constipation. He denies any overt bleeding. He tells me that he spends most of his day in a chair or bed at this point due to ongoing CP, JORGENSEN, and declining
exercise tolerance.
Past-Medical/Surgical History
PMH metastatic prostate cancer, arthritis, HLD, HTN, HFrEF
PSH hip replacement, prostatectomy
Social , retired, denies tobacco, etoh, or recreational drugs
family denies malignancy.
Patient Medication
�Medication �Instructions �Recorded �Confirmed �Last Taken �Type
wwoskatf-on-oduic 300 mcg-K 60 1 ea PO DAILY Supplement 04/10/10 06/11/24 04/26/23 History
mcg-lycop 600 mcg-lutein 300 mcg
tablet (Centrum Silver Ultra Men's)
furosemide 20 mg tablet 40 mg PO DAILY 04/26/23 06/11/24 04/26/23 History
enzalutamide 40 mg tablet (Xtandi) 160 mg PO DAILY 06/11/24 06/11/24 Unknown History
methylprednisolone 24 mg tablet 24 mg PO DAILY 06/11/24 06/11/24 Unknown History
oxycodone 5 mg tablet 5 mg PO Q4H PRN pain 06/11/24 06/11/24 Unknown History
pantoprazole 20 mg tablet,delayed 20 mg PO DAILY 06/11/24 06/11/24 Unknown History
release
Active Medications
Generic Name Dose Route Start Last Admin
Trade Name Freq PRN Reason Stop Dose Admin
Acetaminophen 1,000 mg 06/11/24 16:00
Acetaminophen 500 Mg Tablet PO 07/09/24 15:59
TID DINAH
Aspirin 81 mg 06/11/24 08:00 06/11/24 08:38
Aspirin 81 Mg Chewable Tablet PO 07/09/24 07:59 81 mg
DAILY DINAH Administration
Atorvastatin Calcium 80 mg 06/11/24 18:00
Atorvastatin (Lipitor) 80 Mg Tablet PO 07/09/24 17:59
QPM DINAH
Furosemide 40 mg 06/11/24 12:00 06/11/24 12:02
Furosemide 40 Mg Tablet PO 07/09/24 11:59 40 mg
DAILY DINAH Administration
Heparin Sodium 25,000 units in 250 mls @ 0 mls/hr 06/11/24 09:30 06/11/24 12:02
Heparin 60079 Units/250 Ml IV 250 mls
PER PROTOCOL DINAH Administration
Protocol
Per Protocol
Lidocaine 1 patch 06/11/24 08:00 06/11/24 08:47
Lidocaine 4% Topical Patch TOPICAL 07/09/24 07:59 1 patch
DAILY DINAH Administration
Protocol
Methylprednisolone 8 mg 06/11/24 10:00 06/11/24 10:38
Methylprednisolone 4 Mg Tablet PO 07/09/24 09:59 Not Given
Q12@0800,2200 DINAH
Methylprednisolone 4 mg 06/11/24 12:00 06/11/24 13:05
Methylprednisolone 4 Mg Tablet PO 07/09/24 11:59 4 mg
BID@1200,1700 DINAH Administration
Metoprolol Succinate 25 mg 06/11/24 13:00 06/11/24 13:07
Metoprolol 25 Mg Extended Release Tablet PO 07/09/24 12:59 25 mg
DAILY DINAH Administration
Morphine Sulfate 2 mg 06/11/24 06:26
Morphine 2 Mg/Ml Syringe IV 06/25/24 06:25
Q4HPRN PRN
Severe Pain
Enzalutamide [Xtandi 0 mg 06/11/24 08:00 06/11/24 08:38
] 40 Mg Tablet. Take PO 07/09/24 07:59 160 mg
4tabs(160mg) Daily DAILY DINAH Administration
Oxycodone HCl 10 mg 06/11/24 07:04
Oxycodone 10 Mg Regular Release Tablet PO 06/25/24 07:03
Q4H PRN
pain
Pantoprazole Sodium 20 mg 06/11/24 08:00 06/11/24 08:38
Pantoprazole 20 Mg Delayed Release Tablet PO 07/09/24 07:59 20 mg
DAILY DINAH Administration
Patch Removal 0 patch 06/11/24 20:00
Remove Lidocaine Patch REMOVE 07/09/24 19:59
DAILY@2000 DINAH
Review of Systems
-
ROS notable for HPI, otherwise negative
Physical Exam
-
General: No Apparent Distress
HEENT: Moist Mucous Membranes; Negative Jaundice
Cardiology: Normal Sinus Rhythm
Pulmonary: Clear
GI: Soft
Extremities: Pulses Present; Negative Edema
Neurology: Non Focal
Skin: Warm
Labs
Lab Results
WBC 16.4 10^3/uL (4.8-10.8) H 06/10/24 22:41
RBC 5.66 10^6/uL (4.70-6.10) 06/10/24 22:41
Hgb 15.9 g/dL (13.0-18.0) 06/10/24 22:41
Hct 48.6 % (39.0-52.0) 06/10/24 22:41
MCV 85.9 fL (80.0-94.0) 06/10/24 22:41
MCH 28.1 pg (27.0-31.0) 06/10/24 22:41
MCHC 32.7 g/dL (33.0-37.0) L 06/10/24 22:41
RDW 15.5 % (11.5-14.5) H 06/10/24 22:41
Plt Count 326 10^3/uL (130-400) 06/10/24 22:41
MPV 9.6 fL (7.4-10.4) 06/10/24 22:41
Abs Immat Gran (auto) 0.1 10^3/uL (0-0.05) H 06/10/24 22:41
Absolute Neuts (auto) 12.7 10^3/uL (1.4-6.5) H 06/10/24 22:41
Absolute Lymphs (auto) 2.1 10^3/uL (1.2-3.4) 06/10/24 22:41
Absolute Monos (auto) 1.4 10^3/uL (0.1-0.6) H 06/10/24 22:41
Absolute Eos (auto) 0.1 10^3/uL (0-0.7) 06/10/24 22:41
Absolute Basos (auto) 0.1 10^3/uL (0-0.2) 06/10/24 22:41
Immature Gran % 0.4 % (0-0.5) 06/10/24 22:41
Neutrophils % 77.3 % (42.2-75.2) H 06/10/24 22:41
Lymphocytes % 12.7 % (20.5-51.1) L 06/10/24 22:41
Monocytes % 8.6 % (1.7-9.3) 06/10/24 22:41
Eosinophils % 0.7 % (0-6) 06/10/24 22:41
Basophils % 0.3 % (0-2) 06/10/24 22:41
Creatinine 0.7 mg/dL (0.7-1.3) 06/10/24 22:41
Vital Signs
Vital Signs
Temp Pulse Resp BP Pulse Ox
97.8 F 79 20 130/78 95
06/11/24 15:02 06/11/24 15:00 06/11/24 15:02 06/11/24 15:00 06/11/24 15:02

Documented by User: Julianne Joshi MD 06/11/24 21:26
Plan
Plan
on heparin gtt, plan for cath -management per cardiology
check PSA
continue enzalutamide 40mg daily
Lupron will be continued OP upon discharge
Plan to start bone ppx after dental clearance OP
OP follow up with radiation oncology for palliative XRT to spinal lesion
ATTENDING ADDENDUM
Pt tanisha dn examined, chart reviewed.
Await cardiac eval.
Consider MRI spine if cardiac eval negative.
--- NOTE | 2024-06-11 18:03 | CM ---
spoke to pt in room, he is prev indep, lvies with his s.o. in a 1 story home with 3 step sto enter. he denies any dc planning needs. he has a cane and a walker to use if needed. plan is for dc to home when medically stable.
[2024-06-11 18:22] LABS: APTT 49.9 Sec (23.4-35.0)
[2024-06-11] MEDS: LIPITOR 80 MG PO (18:40)
[2024-06-11 18:46] LABS: Troponin I 0.101 ng/ml
[2024-06-11] MEDS: MEDROL 8 MG PO (21:07)
--- NOTE | 2024-06-11 21:59 | PTCARENOTE ---
Patient received at change of shift. Heparin gtt infusing. 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 Patient denies chest pain and/or shortness of breath at this time. Patient verbalized understanding he will be NPO at midnight for procedure
tomorrow. Call guzman within reach. Plan of care ongoing
[2024-06-12] VITALS (15 sets, daily range): BP systolic 116–166; BP diastolic 64–112; BMI 29.8
[2024-06-12 01:23] LABS: APTT 128.1 Sec (23.4-35.0)
[2024-06-12] MEDS: ROXICODONE 10 MG PO ×3 (01:37→19:34)
[2024-06-12] MEDS: HEPARIN 25000 UNITS/250 ML IV (05:36)
--- NOTE | 2024-06-12 07:45 | W.PN.HOSP.TC ---
Today's Communication/Plan
-
NPO for cardiac cath
Assessment / Plan
Assessment / Plan
Mr. Brandyn Pena is a 83 yo man with hx metastatic prostate CA with on-going outpatient work-up left-sided chest pain (neg stress test 05/21/24) presents with worsening pain, plans for cardiac work-up with catheterization this morning.
chest CT -
IMPRESSION:
There is no pulmonary embolism
Extensive osseous metastasis.
TTE 06/11/24
CONCLUSIONS
Normal left ventricular size and systolic function. No regional wall motion
abnormalities are seen. LV ejection fraction is 60-65% by Arnold's method of
discs. Moderate concentric left ventricular hypertrophy. Normal diastolic
function.
Normal right ventricular size. Normal right ventricular systolic function.
Mitral sclerosis without stenosis. Mitral valve opens normally. No mitral
regurgitation is seen.
Trileaflet aortic valve. Aortic sclerosis without stenosis. No aortic
regurgitation is seen.
Structurally normal tricuspid valve. Tricuspid valve opens normally. No
tricuspid regurgitation is seen. Right heart pressures could not be determined.
Compared to prior study 04/01/2023 no significant change.
Indications:
chest pain, CHF
Left Sided Chest Pain
NSTEMI versus non-HI Troponin elevation in setting of malignancy and pain
- Troponin peaked at 0.109
- discomfort may be 2/2 bony metastatic disease versus ACS
- TTE results above - EF 60-65%^; no regional wall motion abnormalities
- Lasix held pre-cath
- Cardiology evaluation appreciated
- continue aspirin, statin, heparin gtt
- NPO for cardiac cath today
- trial of Lidocaine patch
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
-IV morphine PRN
- PT/OT post cath
Metastatic Prostate Cancer
- As above. Continue methylprednisolone.
- Continue oxycodone and increase to 10mg dose.
- Oncology evaluation appreciated, plans for upcoming XRT
- Continue Xtandi.
DVT Prophylaxis: hep gtt
Code Status: Full
Anticipated Discharge: 24 - 48 hours
Subjective/Interval History
-
Date of Service: June 12, 2024
states he is currently uncomfortable, left-sided chest pain
received oxycodone earlier this morning
Objective Data
-
Labs:
Laboratory Results
06/12/24 06/12/24 06/12/24
00:56 06:00 07:35
WBC Pending
Hgb Pending
Hct Pending
Plt Count Pending
APTT 128.1 H Pending
Sodium Pending
Potassium Pending
Chloride Pending
Carbon Dioxide Pending
BUN Pending
Creatinine Pending
Glucose Pending
Calcium Pending
Vital Signs:
Vital Signs
Temp Pulse Resp BP Pulse Ox
97.8 F 80 16 151/78 96
06/12/24 03:44 06/12/24 06:00 06/12/24 03:44 06/12/24 03:44 06/12/24 03:44
I&O
06/11/24 06/12/24 06/13/24
06:59 06:59 06:59
Intake Total 414 / 414
Output Total 2600 / 2600
Balance -2186 / -2186
Review of Systems
-
History Source: Patient
All other systems: Reviewed and negative
Physical Exam
-
General: No Apparent Distress and Conversant
HEENT: PERRLA
Respiratory: Clear to Auscultation; Negative Wheezes
Cardiac: Regular Rhythm and S1/S2
GI: Soft and Nontender
Musculoskeletal: No Edema
Skin: Warm and Dry; Negative Rash
Neuro: AO x 3
Psych: Calm
Data Reviewed
-
Diagnostic Radiology: Report Reviewed by me
Labs: Labs Reviewed by me
[2024-06-12] MEDS: LIDOCAINE 4% PATCH 1 PATCH TOPICAL (08:08)
[2024-06-12] MEDS: MORPHINE SULFATE 2 MG IV (08:10)
[2024-06-12] MEDS: NON-FORMULARY ITEM 4 MG PO (08:11)
[2024-06-12] MEDS: TYLENOL 1000 MG PO ×3 (08:12→21:51)
[2024-06-12 08:13] LABS: Hematocrit 45.4 % (39.0-52.0); Mean Corpuscular Hgb 28.6 pg (27.0-31.0); Mean Corpuscular Volume 86.6 fL (80.0-94.0); Mean Platelet Volume 9.7 fL (7.4-10.4); Platelet Count 293 10^3/uL (130-400); Red Blood Cell Count 5.24 10^6/uL (4.70-6.10); Red Cell Dist. Width 15.7 % (11.5-14.5); White Blood Cell Count 12.1 10^3/uL (4.8-10.8)
[2024-06-12] MEDS: LOW STRENGTH ASPIRIN 81 MG PO (08:14)
[2024-06-12] MEDS: TOPROL XL 25 MG PO (08:14)
[2024-06-12] MEDS: PROTONIX 20 MG PO (08:14)
[2024-06-12] MEDS: MEDROL 8 MG PO ×2 (08:32→21:51)
[2024-06-12 08:45] LABS: APTT 85.1 Sec (23.4-35.0)
[2024-06-12 08:52] LABS: Blood Urea Nitrogen 35 mg/dl (9-20); Calcium 9.4 mg/dl (8.4-10.2); Carbon Dioxide 27 mmol/L (22-30); Chloride 103 mmol/L (98-107); Estimated Creatinine Clearance 110 ml/min; Glucose 121 mg/dl (70-99); HDL Cholesterol 48 mg/dl; LDL Cholesterol, Calculated 175 mg/dl; Magnesium 2.1 mg/dl (1.6-2.3); Potassium 3.9 mmol/L (3.5-5.1); Sodium 140 mmol/L (135-145); Total Cholesterol 255 mg/dl (50-199); Triglyceride 160 mg/dl (10-149); Very Low Density Lipoprotein 32 mg/dl (0-30); eGFR > 60.00
--- NOTE | 2024-06-12 09:42 | W.PN.ONC2 ---
Today's Communication / Plan
-
cardiac cath today
Impression
Impression
metastatic prostate cancer -CT chest 05/30/2024 showed extensive sclerotic bone lesions without fracture. tiny stable right lung nodules decreased compared to 1 month ago.�His most recent PSA Feb 2024 was 33.22.
right inguinal hernia containing bladder
Admitted with recurrent chest pain, Elevated Troponin, possible ACS
Plan
Plan
on heparin gtt, plan for cath -management per cardiology
f/u PSA
continue enzalutamide 40mg daily
Lupron will be continued OP upon discharge
Plan to start bone ppx after dental clearance OP
OP follow up with radiation oncology for palliative XRT to spinal lesion
at bedside during visit
Subjective/Objective
Subjective
no new complaints
appears comfortable resting in bed
Vital Signs:
Vital Signs
Temp Pulse Resp BP Pulse Ox
97.9 F 76 16 141/75 96
06/12/24 07:48 06/12/24 08:00 06/12/24 07:48 06/12/24 07:47 06/12/24 07:48
Lab Results:
Laboratory Data
WBC 12.1 10^3/uL (4.8-10.8) H 06/12/24 07:59
Hgb 15.0 g/dL (13.0-18.0) 06/12/24 07:59
Plt Count 293 10^3/uL (130-400) 06/12/24 07:59
APTT 85.1 Sec (23.4-35.0) H 06/12/24 07:59
eGFR > 60.00 06/12/24 07:59
Physical Exam
HEENT: Moist Mucous Membranes; No Jaundice
Cardiology: Normal Sinus Rhythm
Pulmonary: Clear
GI: Soft
Extremities: Pulses Present and Edema
Neuro: Non Focal
Orders
Orders
Orders From Last 24 Hours
06/12/24 07:59
PSA, Total - Screen IN AM
[2024-06-12] MEDS: MEDROL PO (11:58)
--- NOTE | 2024-06-12 11:59 | PTCARENOTE ---
sent in bed to cathlab.
[2024-06-12 13:18] LABS: ACT-LR - POC 277 Seconds (116-155)
[2024-06-12 13:33] LABS: ACT-LR - POC 274 Seconds (116-155)
[2024-06-12 13:41] LABS: ACT-LR - POC 327 Seconds (116-155)
--- NOTE | 2024-06-12 14:00 | ITS.CL.CATH ---
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
Cardiac Catheterization
Procedure Report:
LEFT HEART CATHETERIZATION
Date of Procedure: June 12, 2024
Referring: Asya Ochoa MD
PROCEDURES:
1. Left heart catheterization, coronary angiogram.
2. Ultrasound-guided access.
3. Functional physiologic testing with IFR of mid LAD.
4. Functional physiologic testing with IFR of mid left circumflex.
5. Successful percutaneous coronary artery intervention of 3 serial distal to apical LAD stenosis of 70 to 80% with 2 overlapping 2.25 x 22 mm and 2.5 x 26 mm Medtronic [place] drug-eluting stents, postdilated with 2.5 x 20 mm NC balloon at 16 torin
distally and 20 torin proximally with an excellent angiographic result.
INDICATION: Concern for acute coronary syndrome
ACCESS: Right ulnar artery, 6 Bruneian sheath, under ultrasound guidance.
-We initially attempted access-in the right radial artery however given significant spasm we could not successfully advance our wire past the site despite multiple attempts. We attempted access also at the right common femoral artery however his
common femoral artery on ultrasound appeared to be about 6 cm deep and therefore we tried the right ulnar artery with success.
HEMODYNAMICS : (mmHg)
AO (s/d) : 120/68
LV (s/d) : 125/13
LVEDP : 25
CORONARY FINDINGS
DOMINANCE: Right
LEFT MAIN: The left main artery is a large-caliber vessel which gives rise to the left anterior descending artery and the left circumflex artery. There is minimal luminal irregularities.
LEFT ANTERIOR DESCENDING: The LAD is a medium to large caliber vessel which gives rise to 2 major small caliber diagonal branches as it courses to the anterior interventricular groove and wraps around the apex. Mid LAD at the level of the takeoff
of D1 and a large septal branch has eccentric 60% stenosis which is IFR negative. Distal to apical LAD has 3 serial 70 to 80% stenoses which were thought to be potentially contributing to patient's presenting symptoms and therefore decision was
made to move forward with intervention as noted below.
CIRCUMFLEX: The left circumflex artery is a medium caliber vessel which gives rise to 1 major high rising branching OM branch which has focal eccentric 50 to 60% stenosis in the midportion which is IFR negative as noted below.
RIGHT CORONARY ARTERY: The right coronary artery is a large-caliber, dominant vessel which gives rise to the right posterior descending artery on the right posterolateral system. Mid RCA has up to 50% stenosis. Mid to distal RCA has diffuse 30 to
40% stenosis
HEMODYNAMIC ASSESSMENT OF THE MID LAD WITH A InviBoxO OMNI WIRE: The origin of the left coronary artery was cannulated with a set Fr EBU 3.75 guide catheter. Intravenous heparin was administered and the ACT was followed during the procedure. Two
hundred micrograms of intracoronary nitroglycerin was given through the guide catheter. A Scribd Omni wire was advanced to the guide catheter tip and normalized just outside the guide catheter. The Omni wire was then carefully manipulated across
the stenosis in the mid LAD with the iFR above the ischemic threshold serially measuring 0.94, 0.94, 0.93. The Omni wire was then pulled back to the guide catheter where the Pd/Pa measured 1.0 confirming no baseline drift in pressure readings. We
then redirected the iFR wire to assess mid OM1 with the iFR above ischemic threshold at 0.98. The Omni wire was then pulled back to the guide catheter over the Pd/Pa measured 1.0 confirming new baseline different pressure dressings. Given these
findings, decision was made to proceed with intervention in the distal to apical LAD given that appear to be angiographically significant disease.
CORONARY INTERVENTION: Using the same guide, 190 cm run-through 0.014' coronary wire was carefully navigated across the distal to apical LAD stenosis into the apex. The lesions were predilated using a 2.0 x 20 mm semi-compliant balloon with good
expansion. The lesions were then stented with 2 overlapping 2.25 x 22mm and a 2.5 by 26 mm Medtronic Pros[place] drug-eluting stents which were then postdilated with a 2.5 x 20 mm NC balloon at 16 torin distally and 20 torin proximally with an excellent
angiographic result. Patient tolerated the procedure well with no acute complications. He was loaded with 600 mg of Plavix at the end of the case given his history of metastatic prostate cancer and interaction with his oncologic drugs. He also
received 20 mg of IV Lasix at the end of the case.
SEDATION: 109 minutes of procedural sedation was utilized. An independent medical assistant instructor was present to assist with and help manage the patient's level of consciousness and physiologic status.
RADIATION SUMMARY: Fluoro Time (min): 14.6, Dose (mGy): 1347.6, DAP (Gy.cm2) : 102.81
Closure Device: Vascular band over right ulnar artery, 10 cc of air.
CONCLUSIONS
1. Successful percutaneous coronary artery intervention of 3 serial distal to apical LAD stenosis of 70 to 80% with 2 overlapping 2.25 x 22 mm and 2.5 x 26 mm Medtronic [place] drug-eluting stents, postdilated with 2.5 x 20 mm NC balloon at 16 torin
distally and 20 torin proximally with an excellent angiographic result.
2. IFR negative 60% mid LAD stenosis (iFR of 0.93).
3. IFR negative 50 to 60% mid OM 1 stenosis (iFR of 0.98).
4. Significantly elevated LVEDP at 25 mmHg.
RECOMMENDATIONS
1. Dual antiplatelet therapy with daily baby aspirin and Plavix 75 mg along with high intensity statin and beta-yaneli as tolerated.
2. Wean vascular band per protocol.
3. Optimization of medical therapy and aggressive management of cardiovascular risk factors.
4. Referral for outpatient cardiac rehab.
Copy to: Asya Ochoa MD
Jocelyn Astudillo MD, [facility], [facility]
[2024-06-12] MEDS: MEDROL 4 MG PO (17:41)
[2024-06-12] MEDS: LIPITOR 80 MG PO (17:41)
--- NOTE | 2024-06-12 20:42 | PTCARENOTE ---
Radial dressing replaced. site CDI. + pulse. Pt with complaints of chronic pain in the chest/back. PRN OXY given per AUG. Discussed straight cath schedule with pt- verbalized understanding. SR w/ BBB on the monitor.
[2024-06-13] MEDS: ROXICODONE 10 MG PO (02:43)
[2024-06-13 04:13] VITALS: BP 133/79
[2024-06-13 05:38] VITALS: BMI 29.9
[2024-06-13] MEDS: MORPHINE SULFATE 2 MG IV (05:47)
[2024-06-13 06:09] LABS: Hematocrit 44.4 % (39.0-52.0); Hemoglobin 14.8 g/dL (13.0-18.0); Mean Corp Hgb Conc. 33.3 g/dL (33.0-37.0); Mean Corpuscular Hgb 28.2 pg (27.0-31.0); Mean Corpuscular Volume 84.6 fL (80.0-94.0); Platelet Count 290 10^3/uL (130-400); Red Blood Cell Count 5.25 10^6/uL (4.70-6.10); Red Cell Dist. Width 15.4 % (11.5-14.5); White Blood Cell Count 11.2 10^3/uL (4.8-10.8)
[2024-06-13 06:32] LABS: Blood Urea Nitrogen 40 mg/dl (9-20); Calcium 9.2 mg/dl (8.4-10.2); Carbon Dioxide 25 mmol/L (22-30); Chloride 101 mmol/L (98-107); Estimated Creatinine Clearance 110 ml/min; Glucose 133 mg/dl (70-99); Potassium 4.4 mmol/L (3.5-5.1); Sodium 136 mmol/L (135-145); eGFR > 60.00
[2024-06-13 07:51] VITALS: BP 136/74
[2024-06-13] MEDS: TYLENOL 1000 MG PO ×3 (08:22→21:12)
[2024-06-13] MEDS: PROTONIX 40 MG PO (08:22)
[2024-06-13] MEDS: PLAVIX 75 MG PO (08:23)
[2024-06-13] MEDS: TOPROL XL 25 MG PO (08:23)
[2024-06-13] MEDS: LOW STRENGTH ASPIRIN 81 MG PO (08:23)
[2024-06-13] MEDS: NON-FORMULARY ITEM 40 MG PO (08:24)
[2024-06-13] MEDS: MEDROL 8 MG PO ×2 (08:31→21:12)
--- NOTE | 2024-06-13 08:36 | W.PN.ONC2 ---
Today's Communication / Plan
-
See PLAN.
Regarding pain meds...
Stop oxycodone 10 & MSIR 2 IV both PRN.
START MS-CONTIN 15 PO Q12, Dilaudid 1 mg IV NOW and 2 mg PO Q3 PRN breakthrough pain.
Might need increase in MS Contin but want a long acting narc with more potent breakthrough (Dilaudid). Titrate as needed.
Impression
Impression
metastatic prostate cancer with biochemical POD (PSA 120 up from 33) -CT chest 05/30/2024 showed extensive sclerotic bone lesions without fracture.
right inguinal hernia containing bladder
2V CAD s/p THOMAS
Admitted with recurrent chest pain, Elevated Troponin, ACS
Rib pain left chest wall
Plan
Plan
S/P stents x 2 (THOMAS). Optimize cardiac medical therapy.
Unlikely cardiac CP but cardiology checking troponin, ECG, etc.
Regarding met prostate ca, PSA increasing from 33 to 120 in 3 mo.
For XRT to spinal lesion +/- sclerotic rib mets. XRT consulted and will see as outpt. Unable to give inpt XRT.
continue enzalutamide 160mg daily for now. Lupron will be continued OP upon discharge. Will need a Tx change TBD by Dr. Patterson post D/C. Possibly Taxotere chemotherapy vs abiraterone.
Plan to start bone ppx after dental clearance OP.
Adjust pain meds (see today's plan)
Subjective/Objective
Chief Complaint
ACS F/U
Subjective
CC: Left chest pain from cancer present for 2 months. No relief from 10 mg PO oxycodone or 2 mg IV morphine. Pain 03/06. Frustrated that he has not gotten anything to give him relief. Cath results reviewed. 2V CAD s/p 2 THOMAS stents with plans to
optimize medical therapy.
Vital Signs:
Vital Signs
Temp Pulse Resp BP Pulse Ox
97.8 F 72 20 136/74 98
06/13/24 07:52 06/13/24 08:00 06/13/24 07:52 06/13/24 07:51 06/13/24 07:52
Lab Results:
Laboratory Data
WBC 11.2 10^3/uL (4.8-10.8) H 06/13/24 04:23
Hgb 14.8 g/dL (13.0-18.0) 06/13/24 04:23
Plt Count 290 10^3/uL (130-400) 06/13/24 04:23
APTT 85.1 Sec (23.4-35.0) H 06/12/24 07:59
eGFR > 60.00 06/13/24 04:23
Physical Exam
Cardiology: S1 and S2
Orders
Orders
Orders From Last 24 Hours
06/13/24 08:33
HYDROmorphone [Dilaudid] 1 mg IV NOW STA
HYDROmorphone [Dilaudid] 2 mg PO Q3HPRN PRN
06/13/24 09:00
Morphine Sulfate Extended Rel. [Ms Contin (Extended Release)] 15 mg PO Q12
[2024-06-13] MEDS: DILAUDID 1 MG IV (08:43)
--- NOTE | 2024-06-13 08:43 | W.PN.CARDCBS ---
Addendum entered and electronically signed by Yosef Carter MD 06/13/24 10:24:
I saw and examined the patient.
The UI LEAD DEVELOPER or PA's note was reviewed and I agree with the note.
Comment: General: Well developed, well nourished in NAD.
Neck: Supple, no JVD, HJR, carotids +2 B/L, no bruits bilaterally.
Heart: Non displaced PMI, RRR, no murmurs, No S3, S4, no rubs.
Lungs: Scattered rhonchi
Extremities: No clubbing, cyanosis or edema bilaterally.
Neuro: Grossly nonfocal, awake, alert and oriented x3.
Chest pain appears noncardiac but troponin has risen possibly as result of procedure on 06/12. Continue to track troponin. Treat pain as possibly related to bone metastasis. Discussed with patient and at bedside.
Original Note:
Today's Communication / Plan
-
Chest pain seems noncardiac
Cont NSTEMI management
53 min face to face and coordination of care with other specialists
Impression / Plan
-
PCP: Dr. Cervantes
Cardiology: Dr. Carter
Impression:
Admitted with recurrent chest pain and elevated Troponin 06/10/24
Elevated Troponin, possible ACS
Recent ER visit for JORGENSEN and elevated Troponin 05/13/24
EF 37% by Lexiscan mibi 05/21/24, but 72% by echo 04/01/23
Metastatic prostate cancer
Hyperlipidemia, LDL 195
Hyperglycemia, HgbA1c 6.5% and new diagnosis of DM 2
CAD
s/p 2.25 mm and 2.5 mm Medtronic Prosper THOMAS to distal to apical LAD 06/12/24
Lexiscan nuclear stress test 05/21/2024: Myocardial perfusion imaging without definite evidence of scan ischemia or scar, inferior soft tissue attenuation artifact present, EF 39%
Echo 04/01/23: Normal BiV size and function without wall motion abnormality, mild concentric LVH, no significant valve disease
Echo 06/11/24: EF 60 to 65%, no WMA, no MR, no /AR
Plan:
-Patient with recurrent chest pain that is identical to his pain from last few admissions/ER visits. Check urgent ECG and Troponin, ordered by me. No elevation noted on tele leads reviewed by me.
-Talked with Oncology and plan is to change pain meds to MS Contin and Dilaudid IV and PO and to manage as more of an oncologic pain.
-Patient is s/p LAD PCI x2 06/12/24 and has been tolerating aspirin and Plavix thus far.
-Patient managed as a NSTEMI, peak Troponin 0.109
-New to Toprol XL 25 mg daily
-New to atorvastatin 80 mg daily. LDL was 195.
-EF stable by echo
-Cardiac rehab consulted
-Outpatient dose of Lasix 40 mg daily has been on hold since admission due to need for cardiac cath. LVEDP was 25. Creatinine stable at 0.6. Will restart his outpatient dose of Lasix 40 mg daily now
-CT chest without PE 06/11/2024, but there are extensive blastic osseous metastasis as well as a lytic lesion involving the T3 vertebral body
-HgbA1c 6.5% without previous for comparison and this was presumably a new diagnosis of DM 2
HPI: Patient came to ER last night with chest pain and recurrent JORGENSEN and is now admitted with elevated troponin and cardiology has been consulted. Patient was seen in [facility] ER for chest pain on 05/13/2024 and troponin was elevated
at 0.051. Patient already had a previously scheduled appointment to see Dr. Carter in the office as a new patient on 05/16/2024 and therefore was discharged to home. When he saw Dr. Carter in the office he reported weight gain and was restarted
on Lasix 40 mg daily. Patient was also scheduled for Lexiscan nuclear stress test with results noted above. Patient had echo 04/01/2023 that showed preserved EF, but EF was down to 39% on stress test. There was no evidence of ischemia. Patient
returned to ER last night with complaints of JORGENSEN and exertional chest pain. There are reports that he has metastatic lesions that might be causing his pain, but his troponin is elevated higher than previous and was 0.094 initially and now 0.097.
Patient is pain-free at rest.
Progress Note - Instructor Painting
Subjective
Date of Service: June 13, 2024
He has pain that was not helped with morphine
Objective
Labs:
06/13/24 04:23
06/13/24 04:23
Labs
Hgb 14.8 g/dL (13.0-18.0) 06/13/24 04:23
Hct 44.4 % (39.0-52.0) 06/13/24 04:23
Plt Count 290 10^3/uL (130-400) 06/13/24 04:23
APTT 85.1 Sec (23.4-35.0) H 06/12/24 07:59
Sodium 136 mmol/L (135-145) 06/13/24 04:23
Potassium 4.4 mmol/L (3.5-5.1) 06/13/24 04:23
BUN 40 mg/dl (9-20) H 06/13/24 04:23
Creatinine 0.6 mg/dL (0.7-1.3) L 06/13/24 04:23
Glucose 133 mg/dl (70-99) H 06/13/24 04:23
Troponins
06/10/24 06/11/24 06/11/24
22:41 07:00 11:09
Troponin I 0.094 H* 0.097 H* 0.109 H*
06/11/24
17:56
Troponin I 0.101 H*
Vital Signs and I&O:
Vital Signs
Temp Pulse Resp BP Pulse Ox
97.8 F 72 20 136/74 98
06/13/24 07:52 06/13/24 08:00 06/13/24 07:52 06/13/24 07:51 06/13/24 07:52
Vital Signs
Temp Pulse Resp BP Pulse Ox
97.8 F 72 20 136/74 98
06/13/24 07:52 06/13/24 08:00 06/13/24 07:52 06/13/24 07:51 06/13/24 07:52
Intake & Output
06/11/24 06/12/24 06/13/24 06/14/24
06:59 06:59 06:59 06:59
Intake Total 414 / 414 480 / 480
Output Total 2600 / 2600 2905 / 2905
Balance -2186 / -2186 -2425 / -2425
Physical Exam
Physical Exam
GEN: NAD. AAOx3
HEENT: EOMI, MMM
LUNGS: RA. No audible wheeze
CV: SR on tele
ABD: ND
EXT: Right radial without hematoma or ecchymosis. No edema B/L
NEURO: Gross non-focal
SKIN: No rash
Scores
PRANEETH for NSTEMI
Age >/= 65: Yes
>/=3 CAD risk factors-HTN,High Chol,Fam hx CAD,DM,Smoker: Yes
Known CAD (stenosis >/=50%): Yes
ASA use in past 7 days: Yes
Severe angina (>/= 2 episodes in 24 hrs): Yes
EKG ST Changes >/= 0.5mm: No
Positive cardiac marker: Yes
Score: 6
Risk at 14 days-mortality, new/recurrent FL, severe ischemia: High Risk- 41% Risk at 14 days- all cause mortality, new or recurrent FL, or severe recurrent ischemia requiring urgent revascularization
[2024-06-13] MEDS: MS CONTIN (EXTENDED RELEASE) 15 MG PO ×2 (09:19→20:04)
--- NOTE | 2024-06-13 09:22 | PTCARENOTE ---
Assumed care of pt from night RN Pt received awake and alert, Ox3. VSS, CM shows NSR 70's, POX 98% on RA. Pt c/o pain 12/10 to left upper chest. Pt states 'the pain meds are not working'. Cards in to se pt, stat EKG and Trops done as ordered.
Dr. Ritchie in to see pt, Dilaudid 1 mg IV given stat, followed by MS Contin 15 mg po. Checked on pt 20 minutes later, pt states'Pain is still the same', however his speech is slurred slightly and he is nodding asleep. Will continue to monitor
closely.
[2024-06-13] MEDS: LASIX 40 MG PO (10:00)
[2024-06-13 11:03] VITALS: BP 144/74
--- NOTE | 2024-06-13 12:01 | CM ---
Chart reviewed. Patient is independent of ADLS, lives with his SO in a [address], 3 [address], ambulates with his SPC and RW. Patient is interested in VN. Referral sent to [facility]. Plan is for the patient to return home with [facility]. CM to follow
[2024-06-13] MEDS: MEDROL 4 MG PO ×2 (13:45→16:14)
[2024-06-13 15:49] VITALS: BP 134/80
[2024-06-13] MEDS: LASIX 40 MG IV (16:14)
--- NOTE | 2024-06-13 17:07 | W.PN.HOSP.TC ---
Today's Communication/Plan
-
see bold
Assessment / Plan
Assessment / Plan
Mr. Brandyn Pena is a 83 yo man with hx metastatic prostate CA with on-going outpatient work-up left-sided chest pain (neg stress test 05/21/24) presents with worsening pain, plans for cardiac work-up with catheterization this morning.
Left Sided Chest Pain
NSTEMI versus non-NC Troponin elevation in setting of malignancy and pain
- Troponin peaked at 0.109, chest CT neg for PE
- Discomfort may be 2/2 bony metastatic disease versus ACS
- TTE results above - EF 60-65%^; no regional wall motion abnormalities
- Status post cardiac catheterization 06/13 with stenting to LAD
- Continue aspirin, Plavix, Toprol XL, statin
Chest pain likely from metastases of cancer to the bone
-Appreciate oncology input, pain meds changed to MS Contin 15 mg every 12 hours, and hydromorphone 2 mg every 3 hours for breakthrough pain
Constipation
-Start laxatives
Metastatic Prostate Cancer
- Continue methylprednisolone.
- Oncology evaluation appreciated, plans for upcoming XRT
- Continue Xtandi.
DVT Prophylaxis: Subcu Lovenox
Code Status: Full
Updated at bedside 06/13
Total time spent to see the patient on the floor, examine the patient, review data and lab results, discuss treatment plan with patient, nursing staff around 38 minutes.
Physical Exam
General: No acute distress
HEENT: Normocephalic, Atraumatic, EOMI, MMM
Respiratory: Clear to Auscultation bilaterally
Cardiac: Normal S1/S2, Regular Rate and Rhythm
GI: Soft, Nontender, Nondistended, Normal Bowel Sounds
Extremities: No Clubbing, Cyanosis, or Edema
Neuro: Nonfocal/Grossly Intact
Psych: Calm, Cooperative
Derm: No Visible lesions
Anticipated Discharge: Within 24 hours
Subjective/Interval History
-
Date of Service: June 13, 2024
Patient reports severe chest pain, that is suspected from his cancer. No fever, no vomiting. Reports constipation.
Objective Data
-
Labs:
Laboratory Results
06/13/24
04:23
WBC 11.2 H
Hgb 14.8
Hct 44.4
Plt Count 290
Sodium 136
Potassium 4.4
Chloride 101
Carbon Dioxide 25
BUN 40 H
Creatinine 0.6 L
Glucose 133 H
Calcium 9.2
Vital Signs:
Vital Signs
Temp Pulse Resp BP Pulse Ox
97.7 F 68 18 134/80 100
06/13/24 15:49 06/13/24 16:00 06/13/24 15:49 06/13/24 15:49 06/13/24 15:49
I&O
06/12/24 06/13/24 06/14/24
06:59 06:59 06:59
Intake Total 414 / 414 480 / 480
Output Total 2600 / 2600 2905 / 2905 3050 / 3050
Balance -2186 / -2186 -2425 / -2425 -3050 / -3050
[2024-06-13] MEDS: LOVENOX 40 MG SC (17:40)
[2024-06-13] MEDS: LIPITOR 80 MG PO (17:40)
[2024-06-13] MEDS: MIRALAX 17 GRAMS PO (17:41)
[2024-06-13] MEDS: TYLENOL PO (20:03)
[2024-06-13 20:04] VITALS: BP 148/76
[2024-06-13] MEDS: MEDROL PO (20:04)
[2024-06-13] MEDS: SENOKOT-S 2 TABLET PO (20:04)
[2024-06-13 23:02] VITALS: BP 149/79
[2024-06-14] VITALS (9 sets, daily range): BP systolic 134–157; BP diastolic 69–96; PULSE 74; O2SAT 97
--- NOTE | 2024-06-14 00:35 | PTCARENOTE ---
Pt AAOx3 denies pain see MAR for pain meds administered .SR on the monitor and VSS. Rt Radial cath site c/d/i. Plan for 0500 straight cath. Call guzman within reach
[2024-06-14] MEDS: DILAUDID 2 MG PO ×2 (03:26→12:17)
[2024-06-14] MEDS: PROTONIX 40 MG PO (07:45)
[2024-06-14] MEDS: TYLENOL 1000 MG PO ×3 (07:45→19:28)
[2024-06-14] MEDS: TOPROL XL 25 MG PO (07:46)
[2024-06-14] MEDS: LASIX 40 MG PO (07:46)
[2024-06-14] MEDS: PLAVIX 75 MG PO (07:46)
[2024-06-14] MEDS: LOW STRENGTH ASPIRIN 81 MG PO (07:46)
[2024-06-14] MEDS: SENOKOT-S 2 TABLET PO ×2 (07:46→19:26)
[2024-06-14] MEDS: MIRALAX 17 GRAMS PO (07:47)
[2024-06-14] MEDS: MS CONTIN (EXTENDED RELEASE) 15 MG PO ×2 (07:47→15:15)
[2024-06-14] MEDS: NON-FORMULARY ITEM 160 MG PO (08:04)
[2024-06-14] MEDS: MEDROL 8 MG PO ×2 (08:08→19:28)
--- NOTE | 2024-06-14 08:42 | W.PN.HOSP.TC ---
Today's Communication/Plan
-
Consult PT
Assessment / Plan
Assessment / Plan
Mr. Brandyn Pena is a 83 yo man with hx metastatic prostate CA with on-going outpatient work-up left-sided chest pain (neg stress test 05/21/24) presents with worsening pain, plans for cardiac work-up with catheterization this morning.
Left Sided Chest Pain
NSTEMI versus non-SD Troponin elevation in setting of malignancy and pain
- Troponin peaked at 0.109, chest CT neg for PE
- Discomfort may be 2/2 bony metastatic disease versus ACS
- TTE results above - EF 60-65%^; no regional wall motion abnormalities
- Status post cardiac catheterization 06/13 with stenting to LAD
- Continue aspirin, Plavix, Toprol XL, statin
- Cleared by cardiology for discharge
Chest pain likely from metastases of cancer to the bone
-Appreciate oncology input, pain meds changed to MS Contin 15 mg every 12 hours, and hydromorphone 2 mg every 3 hours for breakthrough pain
-Current regimen is working well for patient
Constipation
-Continue aggressive laxatives
Weakness
� Consult PT
Metastatic Prostate Cancer
- Continue methylprednisolone.
- Oncology evaluation appreciated, plans for upcoming XRT
- Continue Xtandi.
DVT Prophylaxis: Subcu Lovenox
Code Status: Full
Updated at bedside 06/13
Total time spent to see the patient on the floor, examine the patient, review data and lab results, discuss treatment plan with patient, nursing staff around 41 minutes.
Physical Exam
General: No acute distress
HEENT: Normocephalic, Atraumatic, EOMI, MMM
Respiratory: Clear to Auscultation bilaterally
Cardiac: Normal S1/S2, Regular Rate and Rhythm
GI: Soft, Nontender, Nondistended, Normal Bowel Sounds
Extremities: No Clubbing, Cyanosis, or Edema
Neuro: Nonfocal/Grossly Intact
Psych: Calm, Cooperative
Derm: No Visible lesions
Anticipated Discharge: Within 24 hours
Subjective/Interval History
-
Date of Service: June 14, 2024
Patient reports that his pain is much improved on the current regimen. He has not had a bowel movement yet. No fever, no shortness of breath, no vomiting. He reports feeling extremely weak.
Objective Data
-
Vital Signs:
Vital Signs
Temp Pulse Resp BP Pulse Ox
97.8 F 84 18 148/73 97
06/14/24 07:50 06/14/24 07:46 06/14/24 07:50 06/14/24 07:46 06/14/24 07:54
I&O
06/13/24 06/14/24 06/15/24
06:59 06:59 06:59
Intake Total 480 / 480
Output Total 2905 / 2905 3950 / 3950
Balance -2425 / -2425 -3950 / -3950
--- NOTE | 2024-06-14 09:10 | W.PN.CARDCBS ---
Addendum entered and electronically signed by Andrews Vasquez MD 06/14/24 11:40:
83-year-old man with metastatic prostate cancer, hypertension, hyperlipidemia came to the hospital with chest pain possibly related to metastatic prostate cancer but had positive troponin and underwent implantation of a 2.25 Medtronic Westbrook stent to
the distal to apical LAD on June 12. Chest pain better with opioids. Still with dyspnea, had negative CT scan with pulmonary embolism protocol June 11.
PMH/PSH/SH/FH: Reviewed
Allergies, home meds: Reviewed
Current meds: Reviewed
145/79, pulse 93, respiratory 20, sats 99%, head neck exam unremarkable, lungs are clear, regular rate and rhythm without murmurs, abdomen benign extremities without clubbing cyanosis or edema distal pulses are intact.
Troponin today is 1.62
Electrocardiogram yesterdaySinus rhythm, PACs, cannot exclude anterior [place], nonspecific ST and T changes, left axis, cannot exclude inferior [place]
Echo reviewed,
Cath report reviewed
Impression:
See below
Plan:
From cardiac standpoint okay for discharge.
Recommended cardiac meds at discharge:
Aspirin 81 mg a day
Atorvastatin 80 mg a day
Metoprolol ER 25 mg a day
Clopidogrel 75 mg a day
Furosemide 40 mg a day
We have arranged for cardiac follow-up. Please call if questions.
Original Note:
Today's Communication / Plan
-
Continue pain control
Continue aspirin and plavix
Pain free currently
Continue lipitor
Follow up arranged
Impression / Plan
-
PCP: Dr. Cervantes
Cardiology: Dr. Carter
Impression:
Admitted with recurrent chest pain
NSTEMI
CAD
s/p 2.25 mm and 2.5 mm Medtronic Westbrook THOMAS to distal to apical LAD 06/12/24
Recent ER visit for JORGENSEN and elevated Troponin 05/13/24
EF 37% by Lexiscan mibi 05/21/24, but 72% by echo 04/01/23
Metastatic prostate cancer
Hyperlipidemia, LDL 195
Hyperglycemia, HgbA1c 6.5% and new diagnosis of DM 2
Lexiscan nuclear stress test 05/21/2024: Myocardial perfusion imaging without definite evidence of scan ischemia or scar, inferior soft tissue attenuation artifact present, EF 39%
Echo 04/01/23: Normal BiV size and function without wall motion abnormality, mild concentric LVH, no significant valve disease
Echo 06/11/24: EF 60 to 65%, no WMA, no MR, no /AR
Plan:
-Presented with chest pain and underwent LHC 06/12. s/p THOAMS to LAD. Had recurrent pain in AM 06/13 which was felt to be non-cardiac.
-After discussion w/ oncology, pain medications adjusted to MS Contin and Dilauded to manage as more of an oncologic pain.
-CT chest without PE 06/11/2024, but there are extensive blastic osseous metastasis as well as a lytic lesion involving the T3 vertebral body
-No further pain overnight. Did have some mild discomfort this AM, however states it was not nearly as severe as prior episodes and resolved quickly.
-Continue aspirin and Plavix
-Echo 06/11/24 with preserved EF and no significant valve disease as noted above.
-Continue Toprol 25mg daily. BP and HR stable.
-New to Lipitor 80mg daily. LDL 195.
-Continue PO lasix 40mg daily.
-Cardiac rehab consulted.
-HgbA1c 6.5% without previous for comparison and this was presumably a new diagnosis of DM 2
-Follow up arranged.
HPI: Patient came to ER last night with chest pain and recurrent JORGENSEN and is now admitted with elevated troponin and cardiology has been consulted. Patient was seen in [facility] ER for chest pain on 05/13/2024 and troponin was elevated
at 0.051. Patient already had a previously scheduled appointment to see Dr. Carter in the office as a new patient on 05/16/2024 and therefore was discharged to home. When he saw Dr. Carter in the office he reported weight gain and was restarted
on Lasix 40 mg daily. Patient was also scheduled for Lexiscan nuclear stress test with results noted above. Patient had echo 04/01/2023 that showed preserved EF, but EF was down to 39% on stress test. There was no evidence of ischemia. Patient
returned to ER last night with complaints of JORGENSEN and exertional chest pain. There are reports that he has metastatic lesions that might be causing his pain, but his troponin is elevated higher than previous and was 0.094 initially and now 0.097.
Patient is pain-free at rest.
Progress Note - Hat Maker
Subjective
Date of Service: June 14, 2024
Chest pain free throughout the PM, mild discomfort this AM, resolved quickly. Pain free during visit.
Objective
Labs:
06/13/24 04:23
06/13/24 04:23
Labs
Hgb 14.8 g/dL (13.0-18.0) 06/13/24 04:23
Hct 44.4 % (39.0-52.0) 06/13/24 04:23
Plt Count 290 10^3/uL (130-400) 06/13/24 04:23
APTT 85.1 Sec (23.4-35.0) H 06/12/24 07:59
Sodium 136 mmol/L (135-145) 06/13/24 04:23
Potassium 4.4 mmol/L (3.5-5.1) 06/13/24 04:23
BUN 40 mg/dl (9-20) H 06/13/24 04:23
Creatinine 0.6 mg/dL (0.7-1.3) L 06/13/24 04:23
Glucose 133 mg/dl (70-99) H 06/13/24 04:23
Troponins
06/11/24 06/11/24 06/13/24
11:09 17:56 08:57
Troponin I 0.109 H* 0.101 H* 2.250 H*
06/13/24 06/14/24
15:27 03:58
Troponin I 2.300 H* 1.620 H*
Vital Signs and I&O:
Vital Signs
Temp Pulse Resp BP Pulse Ox
97.8 F 84 18 148/73 97
06/14/24 07:50 06/14/24 07:46 06/14/24 07:50 06/14/24 07:46 06/14/24 07:54
Vital Signs
Temp Pulse Resp BP Pulse Ox
97.8 F 84 18 148/73 97
06/14/24 07:50 06/14/24 07:46 06/14/24 07:50 06/14/24 07:46 06/14/24 07:54
Intake & Output
06/12/24 06/13/24 06/14/24 06/15/24
06:59 06:59 06:59 06:59
Intake Total 414 / 414 480 / 480
Output Total 2600 / 2600 2905 / 2905 3950 / 3950
Balance -2186 / -2186 -2425 / -2425 -3950 / -3950
Physical Exam
Physical Exam
GEN: No distress, awake, alert, oriented x3
HEENT: supple, anicteric, mmm
LUNGS: CTA b/l, no wheezes/rales
CV: Reg, S1/S2, no murmur
EXT: No clubbing, cyanosis, or edema
NEURO: Gross non-focal
SKIN: Warm, dry, no rash
--- NOTE | 2024-06-14 11:17 | W.PN.ONC ---
Today's Communication / Plan
-
Status post stents
Chest pain improved with narcotic regiment prescribed yesterday
Regarding met prostate ca, PSA increasing from 33 to 120 in 3 mo.
Outpatient XRT to spinal progression
Continue enzalutamide 160mg daily for now. Lupron will be continued OP upon discharge.
Will need a Tx change TBD by Dr. Patterson post D/C.
Plan to start bone ppx after dental clearance OP.
Impression
Impression
metastatic prostate cancer with biochemical POD (PSA 120 up from 33) -CT chest 05/30/2024 showed extensive sclerotic bone lesions without fracture.
right inguinal hernia containing bladder
2V CAD s/p THOMAS
Admitted with recurrent chest pain, Elevated Troponin, ACS
Rib pain left chest wall
Subjective/Objective
Subjective/Objective
Had some mild pain this morning which has been relieved with the use of Dilaudid at 3 AM and long-acting opiate this morning.
Vital Signs:
Vital Signs
Temp Pulse Resp BP Pulse Ox
97.6 F 93 20 145/79 99
06/14/24 10:46 06/14/24 11:00 06/14/24 10:46 06/14/24 10:35 06/14/24 11:04
Heart regular
Lungs without rales
Extremities symmetrical
Lab Results:
Laboratory Data
WBC 11.2 10^3/uL (4.8-10.8) H 06/13/24 04:23
Hgb 14.8 g/dL (13.0-18.0) 06/13/24 04:23
Plt Count 290 10^3/uL (130-400) 06/13/24 04:23
APTT 85.1 Sec (23.4-35.0) H 06/12/24 07:59
eGFR > 60.00 06/13/24 04:23
[2024-06-14] MEDS: MEDROL 4 MG PO ×2 (12:16→16:42)
--- NOTE | 2024-06-14 16:06 | CM ---
CM following for DC planning needs.
Per MD, patient is medically stable for DC. PT is recommending SNF placement. We discussed recommendation and plan.
Pt. and sig. other would agree to SNF placement. We agreed to referrals to [facility] and [facility], awaiting response.
No authorization required for transfer.
Will follow up in the AM re: acceptance and bed availability.
[2024-06-14] MEDS: LOVENOX 40 MG SC (16:42)
[2024-06-14] MEDS: LIPITOR 80 MG PO (16:42)
--- NOTE | 2024-06-14 18:02 | PTCARENOTE ---
Pt needing some encouragement to move secondary to pain. Pt getting relief with current pain regimen as long as he doesn't move! Seen by PT, helped to stand with assist of 2, walked with walker @15feet. Pt's friend concerned about caring for him at
home, pt agrees to go to SNF. Pt straight cath'd for 800 mls jose luis urine without difficulty. Telemetry shows sinus rhythm with rare run NSVT.
[2024-06-14] MEDS: MS CONTIN (EXTENDED RELEASE) 30 MG PO (19:26)
[2024-06-15] VITALS (11 sets, daily range): BP systolic 130–163; BP diastolic 60–94; PULSE 82; O2SAT 97
--- NOTE | 2024-06-15 00:43 | PTCARENOTE ---
Assumed care of the pt @1900. AAOx3 resting comfortably in bed pain meds given as scheduled. SR on the monitor. VSS. Call Contreras within reach
[2024-06-15] MEDS: DILAUDID 2 MG PO ×2 (01:37→05:04)
[2024-06-15] MEDS: MEDROL 8 MG PO ×2 (08:12→22:45)
[2024-06-15] MEDS: MIRALAX 17 GRAMS PO (08:12)
[2024-06-15] MEDS: TOPROL XL 25 MG PO ×2 (08:13→20:50)
[2024-06-15] MEDS: LOW STRENGTH ASPIRIN 81 MG PO (08:13)
[2024-06-15] MEDS: PROTONIX 40 MG PO (08:13)
[2024-06-15] MEDS: TYLENOL 1000 MG PO ×3 (08:13→22:45)
[2024-06-15] MEDS: SENOKOT-S 2 TABLET PO (08:13)
[2024-06-15] MEDS: PLAVIX 75 MG PO (08:13)
[2024-06-15] MEDS: MS CONTIN (EXTENDED RELEASE) 30 MG PO ×2 (08:14→20:49)
[2024-06-15] MEDS: NON-FORMULARY ITEM 160 MG PO (08:14)
[2024-06-15] MEDS: LASIX 40 MG PO (08:14)
[2024-06-15 11:24] LABS: Blood Urea Nitrogen 38 mg/dl (9-20); Calcium 9.6 mg/dl (8.4-10.2); Carbon Dioxide 26 mmol/L (22-30); Chloride 97 mmol/L (98-107); Estimated Creatinine Clearance 110 ml/min; Glucose 180 mg/dl (70-99); Magnesium 2.1 mg/dl (1.6-2.3); Potassium 4.3 mmol/L (3.5-5.1); Sodium 133 mmol/L (135-145); eGFR > 60.00
--- NOTE | 2024-06-15 11:34 | PTCARENOTE ---
Addendum entered by Dedra Marte RN 06/15/24 17:16:
Toprol increased to BID frequency.
Original Note:
Pt had 7 beat run of VT, pt asymptomatic. Shruthi Adair NP notified and Dr.Do. ARMSTRONG checked, potassium 4.3, magnesium 2.1, will continue to monitor.
[2024-06-15] MEDS: DULCOLAX 10 MG RECTAL (12:55)
[2024-06-15] MEDS: MEDROL 4 MG PO ×2 (12:56→18:08)
--- NOTE | 2024-06-15 13:07 | CM ---
CM following for DC planning needs.
Met w/ patient and sig. other at bedside. We reviewed DC plan. Yesterday, per our conversation I had made referrals to SNFs: [facility] + [facility]. Both accepted though [facility] requires pt. to bring his own medication (Xtandi).
I explained this to pt. and sig. other and they are now both refusing SNF and wish to go home w/ VN.
Referral already made to [facility] and accepted.
I updated Attending via TT.
DC plan is now for home w/ [facility] per patient's request.
--- NOTE | 2024-06-15 15:19 | W.PN.HOSP.TC ---
Today's Communication/Plan
-
see bold
Assessment / Plan
Assessment / Plan
Mr. Brandyn Pena is a 83 yo man with hx metastatic prostate CA with on-going outpatient work-up left-sided chest pain (neg stress test 05/21/24) presents with worsening pain, plans for cardiac work-up with catheterization this morning.
Left Sided Chest Pain
NSTEMI versus non-AR Troponin elevation in setting of malignancy and pain
Nonsustained ventricular tachycardia
- Troponin peaked at 0.109, chest CT neg for PE
- Discomfort may be 2/2 bony metastatic disease versus ACS
- TTE results above - EF 60-65%^; no regional wall motion abnormalities
- Status post cardiac catheterization 06/13 with stenting to LAD
- Continue aspirin, Plavix, Toprol XL, statin. Cardiology also added Lasix 40 mg daily.
- Increase Toprol XL from 25 mg daily to 25 mg twice a day due to nonsustained ventricular tachycardia on 06/15, follow-up with cardiology in the office
Chest pain likely from metastases of cancer to the bone
-Seen by oncology
-Increased MS Contin 30 mg every 12 hours on 06/14
-Continue hydromorphone 2 mg every 3 hours for breakthrough pain
Constipation
-Continue aggressive bowel regimen, add Dulcolax suppository, mag citrate
Weakness
� PT recommends SNF, patient wishes to go home with home care
Metastatic Prostate Cancer
- Continue methylprednisolone.
- Oncology evaluation appreciated, plans for upcoming XRT
- Continue Xtandi. Lupron will be continued OP upon discharge
DVT Prophylaxis: Subcu Lovenox
Code Status: Full
Updated at bedside 06/15
Total time spent to see the patient on the floor, examine the patient, review data and lab results, discuss treatment plan with patient, nursing staff around 50 minutes.
Physical Exam
General: No acute distress
HEENT: Normocephalic, Atraumatic, EOMI, MMM
Respiratory: Clear to Auscultation bilaterally
Cardiac: Normal S1/S2, Regular Rate and Rhythm
GI: Soft, Nontender, Nondistended, Normal Bowel Sounds
Extremities: No Clubbing, Cyanosis, or Edema
Neuro: Nonfocal/Grossly Intact
Psych: Calm, Cooperative
Derm: No Visible lesions
Anticipated Discharge: Within 24 hours
Subjective/Interval History
-
Date of Service: June 14, 2024
Continues to have constipation. Pain more tolerable with increasing morphine sulfate. No nausea, no vomiting. Had nonsustained ventricular tachycardia.
Objective Data
-
Vital Signs:
Vital Signs
Temp Pulse Resp BP Pulse Ox
97.6 F 93 20 145/79 99
06/14/24 10:46 06/14/24 11:00 06/14/24 10:46 06/14/24 10:35 06/14/24 11:04
I&O
06/13/24 06/14/24 06/15/24
06:59 06:59 06:59
Intake Total 480 / 480 180 / 180
Output Total 2905 / 2905 3950 / 3950
Balance -2425 / -2425 -3950 / -3950 180 / 180
[2024-06-15] MEDS: CITROMA 300 ML PO (15:45)
[2024-06-15] MEDS: LOVENOX 40 MG SC (18:09)
[2024-06-15] MEDS: LIPITOR 80 MG PO (18:09)
--- NOTE | 2024-06-15 19:34 | PTCARENOTE ---
Pt OOB to chair all day, able to stand with one assist today, a definite improvement. Pt has declined to go to a SNF, his friend is getting resources in place. Pt straight cath'd by RN without problem for 900 mls jose luis urine. Pt given mag citrate
and dulcolax suppository, 2 large BMs today. Pt did not request any medication for breakthrough pain today, comfortable enough with scheduled MS contin and tylenol.
--- NOTE | 2024-06-15 20:24 | PTCARENOTE ---
Received patient at change of shift. Patient sitting in chair, awake, alert and oriented. BP 143/85, SR w/ first degree 80s-100s, 97% on room air. Patient states pain is more manageable but still a 3/10. Right ulnar site CHEMO, little ecchymotic, no
firmness or tenderness. Discussed plan of care for the evening. Patient agrees to call for assistance in and out of bed. Call guzman within reach.
[2024-06-15] MEDS: SENOKOT-S PO (21:29)
[2024-06-15] MEDS: FLUSH (NSS) 1 FLUSH IV (22:45)
[2024-06-16] VITALS (7 sets, daily range): BP systolic 113–153; BP diastolic 62–78
[2024-06-16] MEDS: DILAUDID 2 MG PO (05:57)
[2024-06-16 06:53] LABS: ALT (SGPT) 35 U/L (0-50); AST (SGOT) 52 U/L (17-59); Albumin 3.8 g/dl (3.5-5.0); Alkaline Phosphatase 255 U/L (38-126); Blood Urea Nitrogen 49 mg/dl (9-20); Calcium 9.6 mg/dl (8.4-10.2); Carbon Dioxide 32 mmol/L (22-30); Chloride 96 mmol/L (98-107); Estimated Creatinine Clearance 83 ml/min; Glucose 132 mg/dl (70-99); Potassium 4.8 mmol/L (3.5-5.1); Sodium 136 mmol/L (135-145); Total Bilirubin 0.9 mg/dl (0.2-1.3); Total Protein 6.5 g/dl (6.3-8.2); eGFR > 60.00
[2024-06-16] MEDS: SENOKOT-S 2 TABLET PO ×2 (08:33→20:14)
[2024-06-16] MEDS: TOPROL XL 25 MG PO ×2 (08:34→20:14)
[2024-06-16] MEDS: TYLENOL 1000 MG PO ×3 (08:34→22:22)
[2024-06-16] MEDS: PROTONIX 40 MG PO (08:34)
[2024-06-16] MEDS: MS CONTIN (EXTENDED RELEASE) 30 MG PO ×2 (08:34→20:13)
[2024-06-16] MEDS: LOW STRENGTH ASPIRIN 81 MG PO (08:34)
[2024-06-16] MEDS: PLAVIX 75 MG PO (08:35)
[2024-06-16] MEDS: LASIX 40 MG PO (08:35)
[2024-06-16] MEDS: NON-FORMULARY ITEM 40 MG PO (08:36)
[2024-06-16] MEDS: MIRALAX PO (08:44)
[2024-06-16] MEDS: MEDROL 8 MG PO ×2 (08:49→22:22)
[2024-06-16] MEDS: MEDROL 4 MG PO ×2 (12:59→16:59)
--- NOTE | 2024-06-16 14:13 | W.PN.HOSP.TC ---
Today's Communication/Plan
-
Discharge tomorrow
Assessment / Plan
Assessment / Plan
Mr. Brandyn Pena is a 83 yo man with hx metastatic prostate CA with on-going outpatient work-up left-sided chest pain (neg stress test 05/21/24) presents with worsening pain, plans for cardiac work-up with catheterization this morning.
Left Sided Chest Pain
NSTEMI versus non-AK Troponin elevation in setting of malignancy and pain
Nonsustained ventricular tachycardia
- Troponin peaked at 0.109, chest CT neg for PE
- Discomfort may be 2/2 bony metastatic disease versus ACS
- TTE results above - EF 60-65%^; no regional wall motion abnormalities
- Status post cardiac catheterization 06/13 with stenting to LAD
- Continue aspirin, Plavix, Toprol XL, statin. Cardiology also added Lasix 40 mg daily.
- Increased Toprol XL from 25 mg daily to 25 mg twice a day due to nonsustained ventricular tachycardia on 06/15, follow-up with cardiology in the office
Chest pain likely from metastases of cancer to the bone
-Seen by oncology
-Increased MS Contin 30 mg every 12 hours on 06/14
-Continue hydromorphone 2 mg every 3 hours for breakthrough pain
Constipation
-Resolved status post magnesium citrate
-Continue aggressive bowel regimen secondary to high opioid regimen
Weakness
� PT recommends SNF, patient wishes to go home with home care
Metastatic Prostate Cancer
- Continue methylprednisolone.
- Oncology evaluation appreciated, plans for upcoming XRT
- Continue Xtandi. Lupron will be continued OP upon discharge
DVT Prophylaxis: Subcu Lovenox
Code Status: Full
Updated at bedside 06/15
Total time spent to see the patient on the floor, examine the patient, review data and lab results, discuss treatment plan with patient, nursing staff around 45 minutes.
Physical Exam
General: No acute distress
HEENT: Normocephalic, Atraumatic, EOMI, MMM
Respiratory: Clear to Auscultation bilaterally
Cardiac: Normal S1/S2, Regular Rate and Rhythm
GI: Soft, Nontender, Nondistended, Normal Bowel Sounds
Extremities: No Clubbing, Cyanosis, or Edema
Neuro: Nonfocal/Grossly Intact
Psych: Calm, Cooperative
Derm: No Visible lesions
Anticipated Discharge: Within 24 hours
Subjective/Interval History
-
Date of Service: June 16, 2024
Patient had a large bowel movement yesterday. Continues to complain of diffuse chest pain with movement despite increasing his morphine sulfate from 15 mg every 12 hours to 30 mg every 12 hours. No fever, no vomiting.
Objective Data
-
Labs:
Laboratory Results
06/16/24
06:21
Sodium 136
Potassium 4.8
Chloride 96 L
Carbon Dioxide 32 H
BUN 49 H
Creatinine 0.8
Glucose 132 H
Calcium 9.6
Total Bilirubin 0.9
AST 52
ALT 35
Alkaline Phosphatase 255 H
Vital Signs:
Vital Signs
Temp Pulse Resp BP Pulse Ox
97.9 F 82 18 138/68 92
06/16/24 11:42 06/16/24 09:00 06/16/24 11:42 06/16/24 08:12 06/16/24 11:42
I&O
06/15/24 06/16/24 06/17/24
06:59 06:59 06:59
Intake Total 480 / 480 300 / 300
Output Total 2500 / 2500 1600 / 1600
Balance -2020 / -2020 -1300 / -1300
--- NOTE | 2024-06-16 14:46 | PTCARENOTE ---
Patient with 4 out 10 left sided chest pain, not reproducible, exacerbated by movement and deep breaths. Offered breakthrough medications pain reports pain is tolerable since taking the long acting extended relief morphine this morning. Lights
dimmed, call guzman in reach
[2024-06-16] MEDS: LOVENOX 40 MG SC (17:28)
[2024-06-16] MEDS: LIPITOR 80 MG PO (17:28)
[2024-06-16] MEDS: ROBITUSSIN DM 5 ML PO (20:15)
--- NOTE | 2024-06-16 20:47 | PTCARENOTE ---
Received patient at change of shift. Patient awake, alert, and oriented in bed. BP 120/62, NSR 80s-90s, 94% on room air. Patient rated pain 2/10, but shared he did not move around much today. He had several visitors and 'is in great spirits.'
Patient also verbalized the desire to go to a SNF, now, saying he understands better the need to get stronger to be able to get radiation treatments. Pt c/o cough and difficulty moving mucous in his throat. Reached out to Josep Judge NP-- ordered
for Robitussin-- see MAR. Discussed plan of care. Patient verbalized understanding. Call guzman within reach.
[2024-06-17 04:16] VITALS: BP 128/68
[2024-06-17] MEDS: DILAUDID 2 MG PO ×3 (06:37→18:05)
[2024-06-17 06:54] VITALS: BP 141/75
[2024-06-17] MEDS: TYLENOL 1000 MG PO ×3 (07:37→21:39)
[2024-06-17] MEDS: MEDROL 8 MG PO ×2 (07:37→21:39)
[2024-06-17] MEDS: PROTONIX 40 MG PO (07:37)
[2024-06-17] MEDS: SENOKOT-S 2 TABLET PO ×2 (07:37→18:05)
[2024-06-17] MEDS: NON-FORMULARY ITEM 40 MG PO (07:38)
[2024-06-17] MEDS: TOPROL XL 25 MG PO ×2 (07:38→19:42)
[2024-06-17] MEDS: PLAVIX 75 MG PO (07:38)
[2024-06-17] MEDS: LASIX 40 MG PO (07:38)
[2024-06-17] MEDS: LOW STRENGTH ASPIRIN 81 MG PO (07:38)
[2024-06-17] MEDS: MS CONTIN (EXTENDED RELEASE) 30 MG PO ×2 (07:38→19:42)
[2024-06-17] MEDS: ROBITUSSIN DM 5 ML PO ×2 (07:45→19:42)
--- NOTE | 2024-06-17 08:57 | W.PN.HOSP.TC ---
Today's Communication/Plan
-
see bold
Assessment / Plan
Assessment / Plan
Mr. Brandyn Pena is a 83 yo man with hx metastatic prostate CA with on-going outpatient work-up left-sided chest pain (neg stress test 05/21/24) presents with worsening pain, plans for cardiac work-up with catheterization this morning.
Left Sided Chest Pain
NSTEMI versus non-OK Troponin elevation in setting of malignancy and pain
Nonsustained ventricular tachycardia
- Troponin peaked at 0.109, chest CT neg for PE
- Discomfort may be 2/2 bony metastatic disease versus ACS
- TTE results above - EF 60-65%^; no regional wall motion abnormalities
- Status post cardiac catheterization 06/13 with stenting to LAD
- Continue aspirin, Plavix, Toprol XL, statin. Cardiology also added Lasix 40 mg daily.
- Increased Toprol XL from 25 mg daily to 25 mg twice a day due to nonsustained ventricular tachycardia on 06/15, follow-up with cardiology in the office
Chest pain likely from metastases of cancer to the bone
-Increased MS Contin 30 mg every 12 hours on 06/14 -patient continues to complain of episodes of severe pain with any type of movement
-Continue hydromorphone 2 mg every 3 hours for breakthrough pain
-Oncology started gabapentin 06/18
-Oncology considering transfer to [place] for inpatient radiation
Metastatic Prostate Cancer
- Continue methylprednisolone.
- Oncology evaluation appreciated, plans for upcoming XRT
- Continue Xtandi. Lupron will be continued OP upon discharge
Constipation
-Resolved status post magnesium citrate
-Continue aggressive bowel regimen secondary to high opioid regimen
Weakness
� PT recommends SNF, patient wishes to go home with home care
DVT Prophylaxis: Subcu Lovenox
Code Status: Full
Updated at bedside 06/15
Total time spent to see the patient on the floor, examine the patient, review data and lab results, discuss treatment plan with patient, nursing staff around 43 minutes.
Physical Exam
General: No acute distress
HEENT: Normocephalic, Atraumatic, EOMI, MMM
Respiratory: Clear to Auscultation bilaterally
Cardiac: Normal S1/S2, Regular Rate and Rhythm
GI: Soft, Nontender, Nondistended, Normal Bowel Sounds
Extremities: No Clubbing, Cyanosis, or Edema
Neuro: Nonfocal/Grossly Intact
Psych: Calm, Cooperative
Derm: No Visible lesions
Anticipated Discharge: Within 24 hours
Subjective/Interval History
-
Date of Service: June 17, 2024
Patient complains of severe chest, shoulder pain. States it is 8 out of 10 in intensity at rest, 12 with movement. No fever, no vomiting.
Objective Data
-
Vital Signs:
Vital Signs
Temp Pulse Resp BP Pulse Ox
97.9 F 80 20 128/68 97
06/17/24 06:52 06/17/24 04:16 06/17/24 06:52 06/17/24 04:16 06/17/24 06:52
I&O
06/16/24 06/17/24 06/18/24
06:59 06:59 06:59
Intake Total 300 / 300
Output Total 1600 / 1600 1250 / 1250
Balance -1300 / -1300 -1250 / -1250
--- NOTE | 2024-06-17 09:43 | PTCARENOTE ---
Assumed care at 0700, Patient complaints of chest pain, worsens with movement. Medicated with Dilaudid at 0636. Straight cath for 1050 jose luis concentrated urine with red sediment. Will try to encourage patient to get out of bed today
--- NOTE | 2024-06-17 10:02 | W.PN.ONC ---
Today's Communication / Plan
-
Patient having paroxysms of pain with movement
Initiate gabapentin at low-dose and titrate as tolerated
Regarding met prostate ca, PSA increasing from 33 to 120 in 3 mo.
Unable to give inpatient radiation consider transfer
Continue enzalutamide 160mg daily for now. Lupron will be continued OP upon discharge
Titrate pain medications
Physical therapy as tolerated
Impression
Impression
Metastatic prostate cancer with biochemical POD (PSA 120 up from 33) -CT chest 05/30/2024 showed extensive sclerotic bone lesions without fracture.
Right inguinal hernia containing bladder
Pain syndrome exacerbated by movement likely static secondary to metastatic bone lesions with possible radicular compression
2V CAD s/p THOMAS
Admitted with recurrent chest pain, Elevated Troponin, ACS
Rib pain left chest wall
Subjective/Objective
Subjective/Objective
Patient remains relatively comfortable at rest unfortunately any movement appears to exacerbate sharp discomfort prohibiting him from participating in physical therapy.
Vital Signs:
Vital Signs
Temp Pulse Resp BP Pulse Ox
97.9 F 80 20 128/68 97
06/17/24 06:52 06/17/24 04:16 06/17/24 06:52 06/17/24 04:16 06/17/24 06:52
Physical exam unchanged
Lab Results:
Laboratory Data
WBC 11.2 10^3/uL (4.8-10.8) H 06/13/24 04:23
Hgb 14.8 g/dL (13.0-18.0) 06/13/24 04:23
Plt Count 290 10^3/uL (130-400) 06/13/24 04:23
APTT 85.1 Sec (23.4-35.0) H 06/12/24 07:59
eGFR > 60.00 06/16/24 06:21
[2024-06-17] MEDS: MIRALAX 17 GRAMS PO (10:24)
[2024-06-17 11:52] VITALS: BP 145/73
[2024-06-17] MEDS: MEDROL 4 MG PO ×2 (12:04→15:54)
--- NOTE | 2024-06-17 12:16 | PTCARENOTE ---
Patient out of bed to the chair using rolling walker with assistance
--- NOTE | 2024-06-17 14:37 | PTCARENOTE ---
Patient comfortable in the chair, denies pain
[2024-06-17] MEDS: NEURONTIN 100 MG PO ×2 (15:53→21:39)
[2024-06-17 15:56] VITALS: BP 151/82
[2024-06-17] MEDS: LOVENOX 40 MG SC (16:57)
[2024-06-17] MEDS: LIPITOR 80 MG PO (16:58)
[2024-06-17 19:17] VITALS: BP 142/71
[2024-06-17 23:06] VITALS: BP 121/61
--- NOTE | 2024-06-17 23:17 | PTCARENOTE ---
Received pt at change of shift. SR on the monitor, HR in the 70s. Straight cath for 825ml of jose luis urine with sediment. Pt complains of cough, PRN Robitussin administered as per AUG. Call guzman within reach.
[2024-06-18] VITALS (8 sets, daily range): BP systolic 120–157; BP diastolic 63–107
[2024-06-18] MEDS: DILAUDID 2 MG PO (06:46)
--- NOTE | 2024-06-18 07:24 | W.PN.HOSP.TC ---
Today's Communication/Plan
-
dispo planning to SNF versus transfer to [place] for radiation - will need to speak to Oncology this morning
Assessment / Plan
Assessment / Plan
Mr. Brandyn Pena is a 83 yo man with hx metastatic prostate CA with on-going outpatient work-up left-sided chest pain (neg stress test 05/21/24) presents with worsening pain, plans for cardiac work-up with catheterization this morning, now s/p cardiac
cath 06/13 with PCI to LAD continued pain, started on stronger opiate medication.
Left Sided Chest Pain
NSTEMI versus non-TN Troponin elevation in setting of malignancy and pain
Nonsustained ventricular tachycardia
- Troponin peaked at 0.109, chest CT neg for PE
- Discomfort may be 2/2 bony metastatic disease versus ACS
- TTE results above - EF 60-65%^; no regional wall motion abnormalities
- Status post cardiac catheterization 06/13 with stenting to LAD
- Continue aspirin, Plavix, Toprol XL, statin. Cardiology also added Lasix 40 mg daily.
- Increased Toprol XL from 25 mg daily to 25 mg twice a day due to nonsustained ventricular tachycardia on 06/15, follow-up with cardiology in the office
Chest pain likely from metastases of cancer to the bone
-Increased MS Contin 30 mg every 12 hours on 06/14 - pain improving
-Continue hydromorphone 2 mg every 3 hours for breakthrough pain
-Oncology started gabapentin 06/17
-Oncology considering transfer to [place] for inpatient radiation - will follow up this morning
- PT/OT recommending SNF
Metastatic Prostate Cancer
- Continue methylprednisolone.
- Oncology evaluation appreciated, plans for upcoming XRT
- Continue Xtandi. Lupron will be continued OP upon discharge
Constipation
-Resolved status post magnesium citrate
-Continue aggressive bowel regimen secondary to high opioid regimen
Weakness
� PT recommends SNF, patient wishes to go home with home care
DVT Prophylaxis: Subcu Lovenox
Code Status: Full
Updated at bedside 06/15
Total time spent to see the patient on the floor, examine the patient, review data and lab results, discuss treatment plan with patient, nursing staff around 43 minutes.
Physical Exam
General: No acute distress
HEENT: Normocephalic, Atraumatic, EOMI, MMM
Respiratory: Clear to Auscultation bilaterally
Cardiac: Normal S1/S2, Regular Rate and Rhythm
GI: Soft, Nontender, Nondistended, Normal Bowel Sounds
Extremities: No Clubbing, Cyanosis, or Edema
Neuro: Nonfocal/Grossly Intact
Psych: Calm, Cooperative
Derm: No Visible lesions
Anticipated Discharge: 24 - 48 hours
Subjective/Interval History
-
Date of Service: June 18, 2024
pain better controlled now
can move arms, walked around and sat in chair yesterday
Objective Data
-
Vital Signs:
Vital Signs
Temp Pulse Resp BP Pulse Ox
98.2 F 73 16 142/71 97
06/18/24 06:55 06/17/24 20:00 06/18/24 06:55 06/17/24 19:42 06/18/24 03:50
I&O
06/17/24 06/18/24 06/19/24
06:59 06:59 06:59
Output Total 1250 / 1250 1874 / 1874
Balance -1250 / -1250 -1875 / -1875
Review of Systems
-
History Source: Patient
All other systems: Reviewed and negative
Physical Exam
-
General: No Apparent Distress and Conversant
HEENT: PERRLA
Respiratory: Clear to Auscultation; Negative Wheezes
Cardiac: Regular Rhythm and S1/S2
GI: Soft and Nontender
Musculoskeletal: No Edema
Skin: Warm and Dry; Negative Rash
Neuro: AO x 3
Psych: Calm
Data Reviewed
-
Diagnostic Radiology: Report Reviewed by me
Labs: Labs Reviewed by me
--- NOTE | 2024-06-18 08:11 | W.PN.ONC2 ---
Addendum entered and electronically signed by MELISSA Young 06/18/24 11:51:
I have transitioned Medrol to prednisone 30mg daily, continue ppi, monitor for thrush
Original Note:
Today's Communication / Plan
-
CT ab/pelvis
OP XRT upon discharge will need to be rescheduled (has initial consult planned today with Dr. Lawson)
pain management
Impression
Impression
Metastatic prostate cancer with biochemical POD (PSA 120 up from 33) -CT chest 05/30/2024 showed extensive sclerotic bone lesions without fracture.
Thoracic spine pain
Right inguinal hernia containing bladder
Pain syndrome exacerbated by movement likely static secondary to metastatic bone lesions with possible radicular compression
2V CAD s/p THOMAS
Admitted with recurrent chest pain, Elevated Troponin, ACS
Rib pain left chest wall
Plan
Plan
S/P stents x 2 (THOMAS). Optimize cardiac medical therapy.
Regarding met prostate ca, PSA increasing from 33 to 120 in 3 mo.
For XRT to spinal lesion +/- sclerotic rib mets discussed with Dr. Lawson. CT chest with thoracic lesion which seems to correlate to back exam.
CT ab/pelvis ordered to complete restaging.
continue enzalutamide 160mg daily for now. Lupron will be continued OP upon discharge. Will need a Tx change TBD by Dr. Patterson post D/C. Possibly Taxotere chemotherapy vs abiraterone.
Plan to start bone ppx after dental clearance OP.
Adjust pain meds as needed
Subjective/Objective
Subjective
He reports thoracic spine pain between shoulder blades with improved pain control
He tells me that he requires 2 people to assist OOB but then ambulatory with walker in adams
Significant other at bedside
Vital Signs:
Vital Signs
Temp Pulse Resp BP Pulse Ox
98.2 F 73 16 142/71 97
06/18/24 06:55 06/17/24 20:00 06/18/24 06:55 06/17/24 19:42 06/18/24 03:50
Lab Results:
Laboratory Data
WBC 11.2 10^3/uL (4.8-10.8) H 06/13/24 04:23
Hgb 14.8 g/dL (13.0-18.0) 06/13/24 04:23
Plt Count 290 10^3/uL (130-400) 06/13/24 04:23
APTT 85.1 Sec (23.4-35.0) H 06/12/24 07:59
eGFR > 60.00 06/16/24 06:21
Physical Exam
HEENT: Moist Mucous Membranes; No Jaundice
Cardiology: Normal Sinus Rhythm
Pulmonary: Clear
GI: Soft
Extremities: Pulses Present and Edema
Neuro: Non Focal
[2024-06-18] MEDS: PLAVIX 75 MG PO (08:53)
[2024-06-18] MEDS: TYLENOL 1000 MG PO ×3 (08:53→20:43)
[2024-06-18] MEDS: LASIX 40 MG PO (08:53)
[2024-06-18] MEDS: MS CONTIN (EXTENDED RELEASE) 30 MG PO ×2 (08:53→20:45)
[2024-06-18] MEDS: NON-FORMULARY ITEM 160 MG PO (08:54)
[2024-06-18] MEDS: SENOKOT-S 2 TABLET PO ×2 (08:54→20:44)
[2024-06-18] MEDS: NEURONTIN 100 MG PO ×3 (08:54→20:44)
[2024-06-18] MEDS: LOW STRENGTH ASPIRIN 81 MG PO (08:54)
[2024-06-18] MEDS: TOPROL XL 25 MG PO ×2 (08:54→20:44)
[2024-06-18] MEDS: PROTONIX 40 MG PO (08:54)
[2024-06-18] MEDS: MIRALAX 17 GRAMS PO (08:54)
[2024-06-18] MEDS: MEDROL 8 MG PO (09:19)
[2024-06-18] MEDS: OMNIPAQUE 50 ML PO (11:40)
[2024-06-18] MEDS: DELTASONE 30 MG PO (11:57)
--- NOTE | 2024-06-18 12:35 | CM ---
Reviewed chart. Met with Mr. Pena and his significant other to review discharge plans. We reviewed SNF/Rehab. and [facility]. He is learning toward going home with [facility]. He is wondering if he can get a trapeze bar for his bed at home.
He ia aware that if he need radiation therapy is done as an outpatient. Prior to admission he resides with his significant other is a one story home with three steps to enter. He resides at [facility]. Will need to see his current
functional level to see if he will have any skilled care services. Medical work-up in progress. The discharge plan is to return home with his significant other and [facility] verses SNF/Rehab. when medically stable.
--- NOTE | 2024-06-18 15:34 | PTCARENOTE ---
Pt states 'aches and pains are better today.' Pt given meds as scheduled. See MAR. Assessment completed as documented. Pt sitting OOB in chair; call megan w/in reach.
[2024-06-18] MEDS: LOVENOX 40 MG SC (17:58)
[2024-06-18] MEDS: LIPITOR 80 MG PO (17:58)
--- NOTE | 2024-06-19 03:23 | PTCARENOTE ---
Pt states pain is better controlled today. Straight cath for 900 ml yellow urine. Call guzman within reach
[2024-06-19 04:38] VITALS: BP 134/65
--- NOTE | 2024-06-19 07:33 | W.PN.HOSP.TC ---
Today's Communication/Plan
-
dispo planning for SNF - sent message to CM
Assessment / Plan
Assessment / Plan
Mr. Brandyn Pena is a 83 yo man with hx metastatic prostate CA with on-going outpatient work-up left-sided chest pain (neg stress test 05/21/24) presents with worsening pain, plans for cardiac work-up with catheterization this morning, now s/p cardiac
cath 06/13 with PCI to LAD and continued pain, started on stronger opiate medication to help with pain 2/2 bone metastases.
Left Sided Chest Pain
NSTEMI versus non-NC Troponin elevation in setting of malignancy and pain
Nonsustained ventricular tachycardia
- Troponin peaked at 0.109, chest CT neg for PE
- TTE results above - EF 60-65%; no regional wall motion abnormalities
- Status post cardiac catheterization 06/13 with stenting to LAD
- Continue aspirin, Plavix, Toprol XL, statin. Cardiology also added Lasix 40 mg daily.
- Increased Toprol XL from 25 mg daily to 25 mg twice a day due to nonsustained ventricular tachycardia on 06/15, follow-up with cardiology in the office
Chest pain likely from metastases of cancer to the bone
-Increased MS Contin 30 mg every 12 hours on 06/14 - pain now controlled
-Continue hydromorphone 2 mg every 3 hours for breakthrough pain
-Oncology started gabapentin 06/17
-radiation to be done outpatient
- PT/OT recommending SNF - patient agreeable
Metastatic Prostate Cancer
- Continue methylprednisolone.
- Oncology evaluation appreciated, plans for upcoming XRT
- Continue Xtandi. Lupron will be continued OP upon discharge
Constipation
-Resolved status post magnesium citrate
-Continue aggressive bowel regimen secondary to high opioid regimen
Weakness
� PT recommends SNF, patient wishes to go home with home care
DVT Prophylaxis: Subcu Lovenox
Code Status: Full
Updated at bedside 06/15
Total time spent to see the patient on the floor, examine the patient, review data and lab results, discuss treatment plan with patient, nursing staff around 43 minutes.
Physical Exam
General: No acute distress
HEENT: Normocephalic, Atraumatic, EOMI, MMM
Respiratory: Clear to Auscultation bilaterally
Cardiac: Normal S1/S2, Regular Rate and Rhythm
GI: Soft, Nontender, Nondistended, Normal Bowel Sounds
Extremities: No Clubbing, Cyanosis, or Edema
Neuro: Nonfocal/Grossly Intact
Psych: Calm, Cooperative
Derm: No Visible lesions
Anticipated Discharge: Within 24 hours
Subjective/Interval History
-
Date of Service: June 19, 2024
pain is controlled
mild pain when coughing
Objective Data
-
Vital Signs:
Vital Signs
Temp Pulse Resp BP Pulse Ox
98.4 F 78 20 134/65 96
06/19/24 04:39 06/19/24 04:38 06/19/24 04:39 06/19/24 04:38 06/19/24 04:39
I&O
06/18/24 06/19/24 06/20/24
06:59 06:59 06:59
Intake Total 1130 / 1130
Output Total 1874 / 1875 2200 / 2200
Balance -1875 / -1875 -1070 / -1070
Review of Systems
-
History Source: Patient
All other systems: Reviewed and negative
Physical Exam
-
General: No Apparent Distress and Conversant
HEENT: PERRLA
Respiratory: Clear to Auscultation; Negative Wheezes
Cardiac: Regular Rhythm and S1/S2
GI: Soft and Nontender
Musculoskeletal: No Edema
Skin: Warm and Dry; Negative Rash
Neuro: AO x 3
Psych: Calm
Data Reviewed
-
Diagnostic Radiology: Report Reviewed by me
Labs: Labs Reviewed by me
[2024-06-19 08:01] VITALS: BP 143/54
[2024-06-19 08:05] VITALS: BMI 29.7
--- NOTE | 2024-06-19 08:16 | W.PN.ONC2 ---
Today's Communication / Plan
-
discharge planning
Pt will need to call to reschedule XRT upon discharge
continue prednisone 30mg daily, PPI while on steroids
pain management, currently taking morphine ER 30mg bid & approx 6mg IV hydromorphone/24 hours
bowel regimen while on opioids
Impression
Impression
Metastatic prostate cancer with biochemical POD (PSA 120 up from 33) -CT chest 05/30/2024 showed extensive sclerotic bone lesions without fracture.
Thoracic spine pain
Right inguinal hernia containing bladder
Pain syndrome exacerbated by movement likely static secondary to metastatic bone lesions with possible radicular compression
2V CAD s/p THOMAS
Admitted with recurrent chest pain, Elevated Troponin, ACS
Rib pain left chest wall
Plan
Plan
S/P stents x 2 (THOMAS). Optimize cardiac medical therapy.
Regarding met prostate ca, PSA increasing from 33 to 120 in 3 mo.
to consider XRT to Tspine lesion +/- sclerotic rib mets discussed with Dr. Lawson. CT chest with thoracic lesion which seems to correlate to back pain exam.
continue enzalutamide 160mg daily for now. Lupron will be continued OP upon discharge. Will need a Tx change TBD by Dr. Patterson post D/C. Possibly Taxotere chemotherapy vs abiraterone.
Plan to start bone ppx after dental clearance OP.
Adjust pain meds as needed
medrol transitioned to prednisone 30mg daily, continue at discharge for back pain
Subjective/Objective
Subjective
no new complaints
Vital Signs:
Vital Signs
Temp Pulse Resp BP Pulse Ox
98.6 F 78 20 134/65 98
06/19/24 08:00 06/19/24 04:38 06/19/24 08:00 06/19/24 04:38 06/19/24 08:00
Lab Results:
Laboratory Data
WBC 11.2 10^3/uL (4.8-10.8) H 06/13/24 04:23
Hgb 14.8 g/dL (13.0-18.0) 06/13/24 04:23
Plt Count 290 10^3/uL (130-400) 06/13/24 04:23
APTT 85.1 Sec (23.4-35.0) H 06/12/24 07:59
eGFR > 60.00 06/16/24 06:21
Physical Exam
HEENT: Moist Mucous Membranes; No Jaundice
Cardiology: Normal Sinus Rhythm
Pulmonary: Clear
GI: Soft
Extremities: Pulses Present and Edema
Neuro: Non Focal
Orders
Orders
Orders From Last 24 Hours
06/18/24 10:51
CT Abd/pel W Iv And Oral Contr Routine
06/18/24 11:00
Iohexol [Omnipaque] See Protocol PO ONCE ONE
06/18/24 11:50
Prednisone [Deltasone] 30 mg PO DAILY
[2024-06-19] MEDS: DELTASONE 30 MG PO (08:35)
[2024-06-19] MEDS: LOW STRENGTH ASPIRIN 81 MG PO (08:35)
[2024-06-19] MEDS: PROTONIX 40 MG PO (08:35)
[2024-06-19] MEDS: PLAVIX 75 MG PO (08:36)
[2024-06-19] MEDS: TYLENOL 1000 MG PO (08:36)
[2024-06-19] MEDS: NON-FORMULARY ITEM 160 MG PO (08:36)
[2024-06-19] MEDS: NEURONTIN 100 MG PO (08:36)
[2024-06-19] MEDS: LASIX 40 MG PO (08:36)
[2024-06-19] MEDS: MIRALAX 17 GRAMS PO (08:36)
[2024-06-19] MEDS: TOPROL XL 25 MG PO (08:36)
[2024-06-19] MEDS: MS CONTIN (EXTENDED RELEASE) 30 MG PO (08:36)
[2024-06-19] MEDS: SENOKOT-S 2 TABLET PO (08:36)
[2024-06-19 11:12] VITALS: BP 138/71
--- NOTE | 2024-06-19 12:38 | CM ---
Addendum entered by Batool Patel 06/19/24 13:21:
Reviewed transportation and out of pocket cost with them. Family wants to transport. Her son and son-in-law will help transport him to [facility] today. Updated [facility] admission of transfer date and time. The discharge plan is to go to [place]
[facility] when medically stable.
Original Note:
Reviewed chart. Received message from attending physician that is ready for transfer to SNF today. Met with Mr. Pena to review discharge plans. Reviewed SNF/Rehab. with him. He is agreeable to going to [facility]. Telephone call to [place]
[facility] admissions to confirm ability to accept. [facility] Admissions can accept today if he can get there early. Reviewed out of pocket cost for the wheelchair [employer]. His significant other is going to call [facility] to see if he can
provide transportation. Medical work-up in progress. The discharge plan is to go to [facility] when medically stable.
--- NOTE | 2024-06-19 12:40 | WOUNDNOTE ---
WON RN note: Patient admitted with chest pain and elevated troponin s/p cardiac cath with stents 06/12.
See H&P for complete history. Lives with .
PMH: Rheumatic heart disease, prostate cancer, prostatectomy 2002, recent elevation of PSA started on Xtandi.
Wound Location and type/assessment: Patient notified by nurse Milner that patient has suspected DTI on R buttock. Patient received sitting in recliner chair using air cushion, able to stand with minimal assist. Small horizontal faint maroon patch
with blanchable pink surrounding and no drainage. Patient reports he sleeps on R side at night, denies recent fall on buttock. Has a few bruises on R wrist from blood draw/IV sites. Sacrum and heels are blanchable pink. at bedside aware of the
R buttock possible evolving DTI vs bruise.
Appetite: Good, encouraged protein in diet.
Pressure redistribution devices in place: Ambulates with walker, air mattress and air chair cushion, can take cushion upon discharge. Pressure ulcer prevention measures reviewed with patient and , both state understanding.
Plan: Changed silicone foam, continue offloading cushion when sitting.
Will confirm orders with hospitalist and updated nurse. Updated care plan and will follow as needed.
Note to case management of equipment requested for discharge: None.
Recommend follow up at wound care center upon discharge.
--- NOTE | 2024-06-19 12:41 | WOUNDNOTE ---
WON RN note: Patient admitted with chest pain and elevated troponin s/p cardiac cath with stents 06/12.
See H&P for complete history. Lives with .
PMH: Rheumatic heart disease, prostate cancer, prostatectomy 2002, recent elevation of PSA started on Xtandi.
Wound Location and type/assessment: Notified by nurse Milner that patient has suspected DTI on R buttock. Patient received sitting in recliner chair using air cushion, able to stand with minimal assist. Small horizontal faint maroon patch with
blanchable pink surrounding and no drainage. Patient reports he sleeps on R side at night, denies recent fall on buttock. Has a few bruises on R wrist from blood draw/IV sites. Patient is on Plavix and a baby aspirin. Sacrum and heels are blanchable
pink. at bedside aware of the R buttock possible evolving DTI vs bruise.
Appetite: Good, encouraged protein in diet.
Pressure redistribution devices in place: Ambulates with walker, air mattress and air chair cushion, can take cushion upon discharge. Pressure ulcer prevention measures reviewed with patient and , both state understanding.
Plan: Changed silicone foam, continue offloading cushion when sitting.
Will confirm orders with hospitalist and updated nurse. Updated care plan and will follow as needed.
Note to case management of equipment requested for discharge: None.
Recommend follow up at wound care center upon discharge.
--- NOTE | 2024-06-19 12:58 | W.DS.TRANS ---
DC Summary - [employer] [facility]
-
Discharge Instructions:
Discharge Diagnosis/Procedures Angioplasty and stent to Left Anterior
Descending artery, pain secondary to metastases
in ribs
Diet Low Cholesterol
Activity As tolerated
Driving Restrictions No driving
Bathing Restrictions None
Other Services Cardiac Rehab
Specialty Instructions Weigh Daily
Instructions:
Stand-Alone Forms: DC Instructions- Cath/EP Lab
Changes to Home Medications: Yes
Discharge Medications:
DC Medications w/original date entered in [facility]
trzphdqh-[id number] 300 mcg-K 60 mcg-lycop 600 mcg-lutein 300 mcg tablet (Centrum Silver Ultra Men's) 1 ea PO DAILY Supplement 04/10/10
furosemide 20 mg tablet 40 mg PO DAILY Fluid Retention/Swelling 04/26/23
enzalutamide 40 mg tablet (Xtandi) 160 mg PO DAILY Cancer 06/11/24
acetaminophen 500 mg tablet (Tylenol Extra Strength) 1,000 mg (2 x 500 mg) PO TID #90 tabs 06/19/24
aspirin 81 mg chewable tablet 81 mg PO DAILY #30 tabs 06/19/24
atorvastatin 80 mg tablet 80 mg PO QPM #30 tabs 06/19/24
clopidogrel 75 mg tablet 75 mg PO DAILY #90 tabs 06/19/24
gabapentin 100 mg capsule 100 mg PO TID #90 caps 06/19/24
hydromorphone 2 mg tablet 2 mg PO Q3HPRN PRN Breakthrough pain #30 tabs 06/19/24
metoprolol succinate 25 mg tablet,extended release 24 hr 25 mg PO BID #60 tabs 06/19/24
morphine 15 mg tablet,extended release 30 mg (2 x 15 mg) PO Q12 #60 tabs 06/19/24
pantoprazole 40 mg tablet,delayed release 40 mg PO DAILY #30 tabs 06/19/24
polyethylene glycol 3350 17 gram oral powder packet 17 g PO DAILY #30 ea 06/19/24
prednisone 10 mg tablet 30 mg (3 x 10 mg) PO DAILY #60 tabs 06/19/24
sennosides 8.6 mg-docusate sodium 50 mg tablet 2 tab PO BID #60 tabs 06/19/24
Home Medication Changes
You are newly started on Morphine Sulfate Extended Release 15mg twice a day with Dilaudid as needed for breakthrough pain (stop Oxycodone)
You are newly started on Gabapentin to help with pain
Continue Prednisone 30mg daily until weaned down as outpatient (stop Methylprednisolone)
You are newly started on:
Aspirin and Plavix x 1 year then aspirin indefinitely. It is very important that you take these medications to protect the cardiac stent
Atorvastatin 80mg in evenings
Metoprolol 25mg twice a day
Continue Protonix for stomach protection while on Aspirin, Plavix and Steroids
Take Miralax daily and Colace/Senna twice a day to prevent constipation while on opiates
Pending Results: No
--- NOTE | 2024-06-19 14:28 | PTCARENOTE ---
IV and tele removed. Report called to Starr Saavedra to Melani.
--- NOTE | 2024-06-19 15:48 | W.DCSUMMARY ---
Discharge Summary
Discharge Data
Date of Admission: 06/11/24
Date of Discharge: 06/19/24
-
Pending Results: No
Hospital Course
Discharging Physician : Dr. Caitlyn Pop
Disposition : SNF
Primary care physician : Dr. Mauro Cervantes
Principal Discharge diagnosis : Coronary Artery Disease s/p PCI to LAD 06/13/24; metastatic prostate cancer with bony metastasis pain
Hospital Course :
Mr. Brandyn Pena is a 83 yo man with hx metastatic prostate CA with on-going outpatient work-up left-sided chest pain (neg stress test 05/21/24) presents with worsening pain. Chest CT negative for PE. Troponin elevated. He was admitted to medicine
with Cardiology and Oncology consulting.
TTE performed without regional WMA. Decision made to proceed with cath given chest pain and elevated Troponin and patient had PCI to LAD. He is newly started on Aspirin/Plavix/Statin/Metoprolol dosing increased.
Patient continued to have pain suggestive of pain from the bone metastases. He was started on long acting opiates with better relief and plan will be for outpatient radiation therapy. He is also continued on Prednisone 30mg PO QD per Oncology
recommendations.
He is discharged to SNF.
Time spent on discharge was 45 minutes.
Important imaging findings :
Procedure findings :
Discharge Plan
-
Patient Disposition: Snf/SNF
Discharge Diagnosis/Procedures: Angioplasty and stent to Left Anterior Descending artery, pain secondary to metastases in ribs
Condition: Fair
Diet: Low Cholesterol
Activity: As tolerated
Driving Restrictions: No driving
Bathing Restrictions: None
Other Services: Cardiac Rehab
Specialty Instructions: Weigh Daily- Call MD for wt gain/loss 3 lbs overnight/5 lbs in 1 week
Activity Restrictions/Additional Instructions:
Wound Care Instructions
R buttock:clean with soap and water, silicone foam change q 2-3 days and prn soilage.
Air chair cushion when sitting, can take upon discharge
turning schedule when in bed
increase protein in diet
Follow up at wound care center if wound not healing, call for an appointment.
Stand Alone Forms: DC Instructions- Cath/EP Lab
Referrals:
[facility] [Outside]
Mauro Cervantes MD [Family Provider] - in less than 1 week
Yosef Carter MD [Active] - 07/04/24 2:00 pm (Cardiology followup appointment)
Additional Discharge Medication Instructions:
You are newly started on Morphine Sulfate Extended Release 15mg twice a day with Dilaudid as needed for breakthrough pain (stop Oxycodone)
You are newly started on Gabapentin to help with pain
Continue Prednisone 30mg daily until weaned down as outpatient (stop Methylprednisolone)
You are newly started on:
Aspirin and Plavix x 1 year then aspirin indefinitely. It is very important that you take these medications to protect the cardiac stent
Atorvastatin 80mg in evenings
Metoprolol 25mg twice a day
Continue Protonix for stomach protection while on Aspirin, Plavix and Steroids
Take Miralax daily and Colace/Senna twice a day to prevent constipation while on opiates
Prescriptions:
New
prednisone 10 mg Tablet
30 mg PO DAILY Qty: 60 0RF
hydromorphone 2 mg Tablet
2 mg PO Q3HPRN PRN (Reason: Breakthrough pain) Qty: 30 0RF
atorvastatin 80 mg Tablet
80 mg PO QPM Qty: 30 0RF
aspirin 81 mg Tablet,Chewable
81 mg PO DAILY Qty: 30 0RF
polyethylene glycol 3350 17 gram Powder In Packet
17 g PO DAILY Qty: 30 0RF
sennosides-docusate sodium 8.6-50 mg Tablet
2 tab PO BID Qty: 60 0RF
clopidogrel 75 mg Tablet
75 mg PO DAILY Qty: 90 4RF
pantoprazole 40 mg Tablet,Delayed Release (Dr/Ec)
40 mg PO DAILY Qty: 30 0RF
morphine 15 mg Tablet Extended Release
30 mg PO Q12 Qty: 60 0RF
gabapentin 100 mg Capsule
100 mg PO TID Qty: 90 0RF
acetaminophen [Tylenol Extra Strength] 500 mg Tablet
1,000 mg PO TID Qty: 90 0RF
metoprolol succinate 25 mg Tablet Extended Release 24 Hr
25 mg PO BID Qty: 60 0RF
Continued
Centrum Silver Ultra Men's 1 EACH tablet
1 ea PO DAILY
furosemide 20 mg Tablet
40 mg PO DAILY
Xtandi 40 mg Tablet
160 mg PO DAILY
Discontinued
pantoprazole 20 mg Tablet,Delayed Release (Dr/Ec)
20 mg PO DAILY
methylprednisolone 24 mg Tablet
24 mg PO DAILY
oxycodone 5 mg Tablet
5 mg PO Q4H PRN (Reason: pain)
Discharge Orders:
Discharge Patient (As Directed); Ordered 06/19/24
Ordered By: Caitlyn Pop
Care Plan Goals
Care Plan Goals:
Problem: Readiness for enhanced knowledge related to diagnosis and treatment plan
Goal: Understand your diagnosis and treatment plan needs, including medications if applicable.
Instructions: Know your diagnosis, underlying causes and treatment plan options, including medications if applicable. Consult with your health care team to learn about your diagnosis and treatment plan, including medications if applicable.
Discharge Date and Time
Discharge Date/Time: 06/19/24 15:07
Print Language: LAO
== END 2024-06-19 15:07 | DRG 322 ==
LOC: IVU 04:19
PROVIDERS: Family Medicine; Internal Medicine Interventional Cardiology; Nurse Practitioner; Nurse Practitioner Acute Care; Physician Assistant; Physician Assistant Medical; ADMITTING PHYSICIAN Hospitalist; ATTENDING PHYSICIAN Student in an Organized Health Care Education/Training Program; EMERGENCY PHYSICIAN Student in an Organized Health Care Education/Training Program; FAMILY PHYSICIAN Family Medicine; OTHER PHYSICIAN Internal Medicine Cardiovascular Disease; OTHER PHYSICIAN Internal Medicine Hematology & Oncology
PROC: 4A023N7 Measurement of Cardiac Sampling and Pressure, Left Heart, Percutaneous Approach (ICD-10-PCS; 2024-06-12)
PROC: 027035Z Dilation of Coronary Artery, One Artery with Two Drug-eluting Intraluminal Devices, Percutaneous Approach (ICD-10-PCS; 2024-06-12)
PROC: B2111ZZ Fluoroscopy of Multiple Coronary Arteries using Low Osmolar Contrast (ICD-10-PCS; 2024-06-12)
PROC: B2151ZZ Fluoroscopy of Left Heart using Low Osmolar Contrast (ICD-10-PCS; 2024-06-12)
PROC: 4A033BC Measurement of Arterial Pressure, Coronary, Percutaneous Approach (ICD-10-PCS; 2024-06-12)
DX: I25.10 Atherosclerotic heart disease of native coronary artery without angina pectoris (principal); C79.51 Secondary malignant neoplasm of bone; I50.22 Chronic systolic (congestive) heart failure; K40.30 Unilateral inguinal hernia, with obstruction, without gangrene, not specified as recurrent; C61 Malignant neoplasm of prostate; E78.00 Pure hypercholesterolemia, unspecified; E11.65 Type 2 diabetes mellitus with hyperglycemia; I11.0 Hypertensive heart disease with heart failure; K59.00 Constipation, unspecified; G89.3 Neoplasm related pain (acute) (chronic); Z79.899 Other long term (current) drug therapy; Z92.21 Personal history of antineoplastic chemotherapy
CPT/HCPCS: 71275; 74177; 80048; 80053; 80061; 83036; 83735; 83880; 84484; 85025; 85027; 85347; 85730; 93005; 93306; 93458; 93799; 97116; 97163; 97167; 97530; 99152; 99153; 99285; C1725; C1769; C1874; C1894; C9600; G0103; Q9967

== ENCOUNTER → 2024-06-25 09:22 | Outpatient (REF) | payer OTHER, MEDICARE, SELFPAY ==
[2024-06-25 12:11] LABS: Hematocrit 38.8 % (39.0-52.0); Hemoglobin 12.3 g/dL (13.0-18.0); Mean Corp Hgb Conc. 31.7 g/dL (33.0-37.0); Mean Corpuscular Hgb 28.5 pg (27.0-31.0); Mean Corpuscular Volume 89.8 fL (80.0-94.0); Mean Platelet Volume 9.7 fL (7.4-10.4); Platelet Count 373 10^3/uL (130-400); Red Blood Cell Count 4.32 10^6/uL (4.70-6.10); Red Cell Dist. Width 15.8 % (11.5-14.5); White Blood Cell Count 11.8 10^3/uL (4.8-10.8)
[2024-06-25 12:34] LABS: Blood Urea Nitrogen 28 mg/dl (9-20); Calcium 8.9 mg/dl (8.4-10.2); Carbon Dioxide 30 mmol/L (22-30); Chloride 100 mmol/L (98-107); Glucose 106 mg/dl (70-99); Potassium 4.2 mmol/L (3.5-5.1); Sodium 137 mmol/L (135-145); eGFR > 60.00
== END ==
LOC: OLABP 09:22
PROVIDERS: ATTENDING PHYSICIAN Family Medicine
DX: Z48.812 Encounter for surgical aftercare following surgery on the circulatory system (principal); I21.4 Non-ST elevation (NSTEMI) myocardial infarction; I00 Rheumatic fever without heart involvement; Z95.820 Peripheral vascular angioplasty status with implants and grafts; E87.5 Hyperkalemia; M19.90 Unspecified osteoarthritis, unspecified site; R06.00 Dyspnea, unspecified; J84.9 Interstitial pulmonary disease, unspecified
CPT/HCPCS: 36415; 80048; 85027

== ENCOUNTER → 2024-07-11 10:41 | Outpatient (REF) | payer OTHER, MEDICARE, SELFPAY ==
[2024-07-11 12:09] LABS: % Basophils 0.4 % (0-2); % Eosinophils 1.3 % (0-6); % Immature Granulocytes 0.3 % (0-0.5); % Lymphocytes 16.5 % (20.5-51.1); % Monocytes 7.7 % (1.7-9.3); % Neutrophils 73.8 % (42.2-75.2); Absolute Eosinophils 0.1 10^3/uL (0-0.7); Absolute Lymphocytes 1.6 10^3/uL (1.2-3.4); Absolute Monocytes 0.7 10^3/uL (0.1-0.6); Hematocrit 38.4 % (39.0-52.0); Mean Corp Hgb Conc. 31.3 g/dL (33.0-37.0); Mean Corpuscular Volume 89.7 fL (80.0-94.0); Mean Platelet Volume 9.9 fL (7.4-10.4); Nucleated Red Blood Cells % 0 % (-); Platelet Count 311 10^3/uL (130-400); Red Blood Cell Count 4.28 10^6/uL (4.70-6.10); Red Cell Dist. Width 16.3 % (11.5-14.5); White Blood Cell Count 9.5 10^3/uL (4.8-10.8)
[2024-07-11 12:42] LABS: ALT (SGPT) 20 U/L (0-50); AST (SGOT) 24 U/L (17-59); Albumin 3.1 g/dl (3.5-5.0); Alkaline Phosphatase 218 U/L (38-126); Blood Urea Nitrogen 23 mg/dl (9-20); Carbon Dioxide 28 mmol/L (22-30); Chloride 102 mmol/L (98-107); Glucose 100 mg/dl (70-99); Potassium 4.3 mmol/L (3.5-5.1); Sodium 139 mmol/L (135-145); Total Bilirubin 0.4 mg/dl (0.2-1.3); Total Protein 5.4 g/dl (6.3-8.2); eGFR > 60.00
== END ==
LOC: OLABP 10:41
PROVIDERS: ATTENDING PHYSICIAN Family Medicine
DX: Z48.812 Encounter for surgical aftercare following surgery on the circulatory system (principal); I21.4 Non-ST elevation (NSTEMI) myocardial infarction; I10 Essential (primary) hypertension; C61 Malignant neoplasm of prostate; E87.5 Hyperkalemia; M19.90 Unspecified osteoarthritis, unspecified site; R06.00 Dyspnea, unspecified; J84.9 Interstitial pulmonary disease, unspecified
CPT/HCPCS: 36415; 80053; 85025

== ENCOUNTER 2024-07-29 15:00 | Emergency (ER) | payer MEDICARE, OTHER, SELFPAY ==
[2024-07-29 15:02] VITALS: BP 178/96
[2024-07-29 15:26] VITALS: BP 143/76
[2024-07-29 15:47] LABS: % Basophils 0.3 % (0-2); % Eosinophils 0.2 % (0-6); % Immature Granulocytes 0.6 % (0-0.5); % Lymphocytes 7.9 % (20.5-51.1); Absolute Immature Granulocytes 0.1 10^3/uL (0-0.05); Absolute Lymphocytes 0.8 10^3/uL (1.2-3.4); Absolute Monocytes 0.5 10^3/uL (0.1-0.6); Absolute Neutrophils 9.2 10^3/uL (1.4-6.5); Hematocrit 46.7 % (39.0-52.0); Hemoglobin 14.9 g/dL (13.0-18.0); Mean Corp Hgb Conc. 31.9 g/dL (33.0-37.0); Mean Corpuscular Hgb 28.2 pg (27.0-31.0); Mean Corpuscular Volume 88.4 fL (80.0-94.0); Mean Platelet Volume 10.1 fL (7.4-10.4); Nucleated Red Blood Cells % 0 % (-); Platelet Count 344 10^3/uL (130-400); Red Blood Cell Count 5.28 10^6/uL (4.70-6.10); Red Cell Dist. Width 18.6 % (11.5-14.5); White Blood Cell Count 10.7 10^3/uL (4.8-10.8)
--- NOTE | 2024-07-29 15:55 | ED.GENMED ---
History of Present Illness
General
Chief Complaint: Breathing Problem
Source: patient
Exam Limitations: none
Time Seen by Provider: 07/29/24 15:23
History of Present Illness
History of Present Illness:
83-year-old male with known coronary artery disease and known prostate cancer with metastasis to the bone presents with shortness of breath and elevated heart rate worsening over the past couple days. He was recently discharged from rehab. He was
there for 6 weeks following stent placement in his LAD x 2 in mid May. He is due to have a port placed tomorrow for his chemotherapy. He is not sure if he is just anxious. He denies chest pain. No fever. No cough. No leg swelling or
weight gain. No other complaints
Past History
Past History
ED Past Medical History: Cancer (Prostate cancer), Hypercholesterolemia and Other (Rheumatic heart disease)
ED Past Surgical History: Orthopedic and Urological
Phy Exam
Physical Exam
Physical Exam:
General: Well-appearing male with increased work of breathing
HEENT: Normocephalic atraumatic
Heart: Regular rate and rhythm no murmurs
Lungs: Clear no wheeze
Extremities: No cyanosis or edema
Skin: Warm no rash
Scores
Heart Failure Risk
Heart Failure Risk Score: Not Applicable
Course
Orders/Labs/Results
Orders:
Orders
07/29/24 15:05
Electrocardiogram (*1) Urgent
Reason for Study: Shortness of Breath
CR Chest - 2 Views Urgent
Comment:
Reason For Exam: SOB
07/29/24 15:06
EKG- Treatment ONCE
07/29/24 15:17
Complete Blood Count/With Diff Urgent
Comprehensive Metabolic Panel Urgent
NT-proBNP Urgent
Troponin I Urgent
07/29/24 15:47
CT Chest PE Study Urgent
Comment:
Reason For Exam: sob, elevated hr, known malignancy
07/29/24 16:29
COVID-19 Antigen Urgent
Source: Nasal Swab
Influenza A+B Rapid Molecular Urgent
JOSE Source: Nasal Swab
Specimen Description:
Abnormal Lab Results
07/29/24
15:17
MCHC 31.9 L g/dL
(33.0-37.0)
RDW 18.6 H %
(11.5-14.5)
Abs Immat Gran (auto) 0.1 H 10^3/uL
(0-0.05)
Absolute Neuts (auto) 9.2 H 10^3/uL
(1.4-6.5)
Absolute Lymphs (auto) 0.8 L 10^3/uL
(1.2-3.4)
Immature Gran % 0.6 H %
(0-0.5)
Neutrophils % 86.0 H %
(42.2-75.2)
Lymphocytes % 7.9 L %
(20.5-51.1)
BUN 23 H mg/dl
(9-20)
Glucose 204 H mg/dl
(70-99)
Alkaline Phosphatase 257 H U/L
(38-126)
Troponin I 0.066 H* ng/ml
07/29/24 15:17
07/29/24 15:17
Vital Signs
Initial and Last Documented VS:
Initial Vital Signs
Temp Pulse Resp BP Pulse Ox
98.2 F 100 20 178/96 97
07/29/24 15:02 07/29/24 15:02 07/29/24 15:02 07/29/24 15:02 07/29/24 15:02
Last Documented Vital Signs
Temp Pulse Resp BP Pulse Ox
98.2 F 88 16 132/75 94
07/29/24 15:02 07/29/24 17:15 07/29/24 17:15 07/29/24 17:05 07/29/24 17:15
MDM/Problems Addressed
Differential Diagnosis Includes:
Shortness of breath. Consider heart failure versus pneumonia versus COVID versus flu versus ACS or PE
EKG shows faster heart rate than baseline with changes in lead I with more depression. Troponin and BNP pending. Low threshold to investigate for PE secondary to known malignancy, elevated heart rate than baseline and EKG changes. Last check of
renal function showed normal renal functions. PE study ordered COVID and flu test ordered.
*Critical Care Note
Total Time (30-74mins, 75-104mins- exclusive of procedures): Not Applicable
Update Note
Update Note:
PE study negative. Chest x-ray clear COVID and flu negative. Patient reexamined with stable vital signs. He looks more comfortable. I suspect patient is becoming slightly anxious but about dorsalis pending port placement. I did prescribe a
couple tablets of Ativan for him to take if needed. He will follow-up tomorrow as planned for his port
ED Attending Note
-
Portions of this chart may have been created with voice recognition software.� Occasional wrong word or��sound alike� substitutions may have occurred due to the inherent limitations of voice recognition software.
Discharge Plan
Departure
Patient Disposition: Home (Routine Discharge)
Date of Disposition: 07/29/24
Time of Disposition: 18:09
Patient with high blood pressure during this ER visit?: No
Discharge Problem:
Breath shortness
Instructions: Shortness of Breath (Dyspnea) (DC)
Prescriptions:
New
lorazepam [Ativan] 0.5 mg tablet
0.5 mg PO BID PRN (Reason: anxiety) Qty: 7 0RF
No Action
furosemide 20 mg Tablet
40 mg PO DAILY
Xtandi 40 mg Tablet
160 mg PO DAILY
prednisone 10 mg Tablet
30 mg PO DAILY Qty: 60 0RF
hydromorphone 2 mg Tablet
2 mg PO Q3HPRN PRN (Reason: Breakthrough pain) Qty: 30 0RF
atorvastatin 80 mg Tablet
80 mg PO QPM Qty: 30 0RF
aspirin 81 mg Tablet,Chewable
81 mg PO DAILY Qty: 30 0RF
polyethylene glycol 3350 17 gram Powder In Packet
17 g PO DAILY Qty: 30 0RF
sennosides-docusate sodium 8.6-50 mg Tablet
2 tab PO BID Qty: 60 0RF
clopidogrel 75 mg Tablet
75 mg PO DAILY Qty: 90 4RF
pantoprazole 40 mg Tablet,Delayed Release (Dr/Ec)
40 mg PO DAILY Qty: 30 0RF
morphine 15 mg Tablet Extended Release
30 mg PO Q12 Qty: 60 0RF
gabapentin 100 mg Capsule
100 mg PO TID Qty: 90 0RF
metoprolol succinate 25 mg Tablet Extended Release 24 Hr
25 mg PO BID Qty: 60 0RF
Theragen Tablet
1 tab PO DAILY
amlodipine [Norvasc] 2.5 mg Tablet
2.5 mg PO DAILY
acetaminophen [Tylenol Extra Strength] 500 mg tablet
1,000 mg PO TIDPRN PRN (Reason: mild pain)
Referrals:
Mauro Cervantes MD [Family Provider] -
Activity Restrictions/Additional Instructions:
As discussed, the workup here was reassuring. You may use Ativan if needed for anxiety pending your upcoming appointment for your port placement. Return if worse otherwise follow-up with your doctors
Interventions
Interventions:
*Risk Screen - Suicide Last Done: 07/29/24 16:16
*General Assessment Last Done: 07/29/24 15:02
*Neglect/Abuse Screening Last Done: 07/29/24 16:16
ED- Fall Risk Assessment Last Done: 07/29/24 16:16
*ED COVID-19 Vaccine History Last Done: 07/29/24 16:16
ED- Cardiac Assessment Last Done: 07/29/24 16:16
ED- Pulmonary Assessment Last Done: 07/29/24 16:16
Discharge Date and Time
Print Language: ICELANDIC
[2024-07-29 15:57] LABS: ALT (SGPT) 26 U/L (0-50); AST (SGOT) 31 U/L (17-59); Albumin 4.5 g/dl (3.5-5.0); Alkaline Phosphatase 257 U/L (38-126); Blood Urea Nitrogen 23 mg/dl (9-20); Calcium 9.4 mg/dl (8.4-10.2); Carbon Dioxide 25 mmol/L (22-30); Chloride 99 mmol/L (98-107); Glucose 204 mg/dl (70-99); Potassium 4.5 mmol/L (3.5-5.1); Sodium 138 mmol/L (135-145); Total Bilirubin 1.2 mg/dl (0.2-1.3); Total Protein 6.8 g/dl (6.3-8.2); eGFR > 60.00
[2024-07-29 16:11] LABS: NT-proBNP 1440 pg/ml; Troponin I 0.066 ng/ml
[2024-07-29 16:16] VITALS: BMI 30.5
[2024-07-29 16:28] VITALS: BP 133/81
[2024-07-29 17:05] VITALS: BP 132/75
[2024-07-29 17:07] LABS: COVID-19 Antigen Negative (Negative)
[2024-07-29 18:00] VITALS: BP 118/70
== END 2024-07-29 18:55 | disposition home or self-care (01) ==
LOC: EMR 15:00
PROVIDERS: Emergency Medicine; Physician Assistant; EMERGENCY PHYSICIAN Emergency Medicine; FAMILY PHYSICIAN Family Medicine
DX: R06.02 Shortness of breath (principal); I25.10 Atherosclerotic heart disease of native coronary artery without angina pectoris; E78.00 Pure hypercholesterolemia, unspecified; C61 Malignant neoplasm of prostate; C79.51 Secondary malignant neoplasm of bone; Z95.5 Presence of coronary angioplasty implant and graft
CPT/HCPCS: 99285; 71046; 71275; 80053; 83880; 84484; 85025; 87502; 87811; 93005; Q9967

== ENCOUNTER → 2024-07-30 08:48 | Outpatient (REF) | payer MEDICARE, OTHER, SELFPAY ==
[2024-07-30 09:22] LABS: % Basophils 0.6 % (0-2); % Eosinophils 0.9 % (0-6); % Immature Granulocytes 0.5 % (0-0.5); % Monocytes 8.7 % (1.7-9.3); % Neutrophils 77.3 % (42.2-75.2); Absolute Basophils 0.1 10^3/uL (0-0.2); Absolute Eosinophils 0.1 10^3/uL (0-0.7); Absolute Immature Granulocytes 0.1 10^3/uL (0-0.05); Absolute Lymphocytes 1.3 10^3/uL (1.2-3.4); Absolute Neutrophils 8.5 10^3/uL (1.4-6.5); Hematocrit 46.4 % (39.0-52.0); Hemoglobin 14.7 g/dL (13.0-18.0); Mean Corp Hgb Conc. 31.7 g/dL (33.0-37.0); Mean Corpuscular Hgb 27.8 pg (27.0-31.0); Mean Corpuscular Volume 87.9 fL (80.0-94.0); Mean Platelet Volume 9.7 fL (7.4-10.4); Nucleated Red Blood Cells % 0 % (-); Platelet Count 336 10^3/uL (130-400); Red Blood Cell Count 5.28 10^6/uL (4.70-6.10); Red Cell Dist. Width 18.6 % (11.5-14.5)
[2024-07-30 09:39] VITALS: BP 153/72; BP_SYST 85
[2024-07-30 09:39] LABS: ALT (SGPT) 23 U/L (0-50); AST (SGOT) 29 U/L (17-59); Albumin 4.6 g/dl (3.5-5.0); Alkaline Phosphatase 247 U/L (38-126); Blood Urea Nitrogen 29 mg/dl (9-20); Calcium 8.3 mg/dl (8.4-10.2); Carbon Dioxide 28 mmol/L (22-30); Chloride 101 mmol/L (98-107); Glucose 152 mg/dl (70-99); Potassium 4.6 mmol/L (3.5-5.1); Sodium 141 mmol/L (135-145); Total Bilirubin 1.2 mg/dl (0.2-1.3); Total Protein 7.3 g/dl (6.3-8.2); eGFR > 60.00
[2024-07-30] MEDS: ANCEF 10 IV (09:52)
[2024-07-30 11:00] VITALS: BP 148/68
== END ==
LOC: RADI 08:48
PROVIDERS: ATTENDING PHYSICIAN Internal Medicine Hematology & Oncology; FAMILY PHYSICIAN Family Medicine
DX: C61 Malignant neoplasm of prostate (principal)
CPT/HCPCS: 36415; 36561; 76937; 77001; 80053; 84153; 85025; 99152; 99153; C1788

== ENCOUNTER 2024-08-10 19:31 | Emergency (ER) | payer MEDICARE, OTHER, SELFPAY ==
[2024-08-10 19:38] VITALS: BP 110/52
[2024-08-10 20:20] LABS: ALT (SGPT) 25 U/L (0-50); AST (SGOT) 31 U/L (17-59); Albumin 3.7 g/dl (3.5-5.0); Alkaline Phosphatase 156 U/L (38-126); Blood Urea Nitrogen 24 mg/dl (9-20); Calcium 8.6 mg/dl (8.4-10.2); Carbon Dioxide 22 mmol/L (22-30); Chloride 102 mmol/L (98-107); Glucose 152 mg/dl (70-99); Potassium 4.7 mmol/L (3.5-5.1); Sodium 134 mmol/L (135-145); Total Bilirubin 0.9 mg/dl (0.2-1.3); Total Protein 6.2 g/dl (6.3-8.2); eGFR > 60.00
[2024-08-10 20:45] LABS: Hematocrit 40.8 % (39.0-52.0); Hemoglobin 13.2 g/dL (13.0-18.0); Mean Corp Hgb Conc. 32.4 g/dL (33.0-37.0); Mean Corpuscular Hgb 27.8 pg (27.0-31.0); Mean Corpuscular Volume 85.9 fL (80.0-94.0); Mean Platelet Volume 9.4 fL (7.4-10.4); Platelet Count 403 10^3/uL (130-400); Red Blood Cell Count 4.75 10^6/uL (4.70-6.10); Red Cell Dist. Width 16.8 % (11.5-14.5); Segmented Neutrophils 8 % (42-75)
[2024-08-10 20:46] LABS: Atypical Lymphocytes 6 %; Band Neutrophils 0 % (0-3); Lymphocytes 52 % (20-51); Monocytes 34 % (2-9); Normal RBC Morphology Yes; Nucleated Red Blood Cells 4 (-); Platelets Checked Yes; Total Cells Counted 50
[2024-08-10 20:49] LABS: Absolute Neutrophils -Man Diff 0.1 10^3/uL (1.4-6.5); White Blood Cell Count 1.6 10^3/uL (4.8-10.8)
[2024-08-10 21:24] VITALS: BP 156/83
[2024-08-10 22:00] VITALS: BP 125/68
[2024-08-10 23:00] VITALS: BP 120/72
[2024-08-10 23:17] LABS: COVID-19 Antigen Negative (Negative)
--- NOTE | 2024-08-10 23:56 | ED.GENMED ---
History of Present Illness
General
Chief Complaint: Abnormal Lab Value
Source: patient and previous hospital records (Port-A-Cath insertion July 30, 2024. Outpatient oncology office note July 11, 2024)
Exam Limitations: none
Time Seen by Provider: 08/10/24 22:06
Nursing documentation reviewed up to this point in time: agreed with
History of Present Illness
History of Present Illness:
This is an 83-year-old gentleman who has history of metastatic prostate cancer with more recent progression of disease. He follows with [facility]. Had Port-A-Cath placed July 30 with initiation of chemotherapy�Docetaxel
August 01.
He also underwent 5 radiation treatments to his upper back for progressive metastatic bony disease. He states radiation completed just prior to chemotherapy treatment.
He has history of interstitial lung disease, mild chronic shortness of breath and mild chronic cough that has been stable and unchanged. Had been maintained on prednisone 30 mg, this has been weaned to 5 mg twice daily prior to initiation of
chemotherapy.
Overall has been feeling well, he denies fever nor chills, appetite has been good. He does note mildly hoarse voice that began 2 days ago but denies sore throat, no nasal congestion, no headache, no dysphagia.
Routine outpatient blood work drawn earlier today noted neutropenia and he received a call from central supply tech office at 6:30 PM tonight recommend he come to the ED for further evaluation.
Past History
Past History
ED Past Medical History: Cancer (Prostate cancer with widespread metastatic disease), Hypercholesterolemia and Other (Rheumatic heart disease)
ED Past Surgical History: Orthopedic and Urological
Social History
Tobacco: Non-smoker
Alcohol: None
Personal:
Living: alone
Employment: Retired
Family History
Family History: Other (Noncontributory)
Phy Exam
Physical Exam
Physical Exam:
GENERAL: 83-year-old gentleman appears his stated age, awake and alert, pleasant, appears in no acute distress. Afebrile.
EYE: anicteric
NECK: Supple, nontender, no meningismus, no significant adenopathy.
ENT: posterior pharynx is clear, oral mucosa is moist. TM clear b/l, nares patent.
CARDIAC: Regular rate and rhythm. no murmur.
LUNGS: Clear breath sounds bilaterally, no acute respiratory distress, no wheezes/rales/rhonchi
ABDOMEN: Soft, nondistended, without focal tenderness, no r/g, no cvat. normoactive BS.
NEUROLOGICAL: Alert and oriented x3, no focal neuro deficits. Gait is steady.
SKIN: Warm and dry, normal color, skin intact. No rash.
MUSCULOSKELETAL: No C/C/E. peripheral pulses are full and equal b/l. No palpable tenderness.
PSYCH: Normal and appropriate interaction.
Course
Orders/Labs/Results
Orders:
Orders
08/10/24 19:42
EKG [Electrocardiogram (*1)] Urgent
Reason for Study: Shortness of Breath
08/10/24 19:43
EKG- Treatment ONCE
08/10/24 19:54
Type And Crossmatch [Type+Screen] Urgent
Complete Blood Count/With Diff Urgent
Comprehensive Metabolic Panel Urgent
Manual Differential Urgent
08/10/24 22:45
CR Chest - 2 Views Urgent
Comment:
Reason For Exam: cough, neutropenia
08/10/24 22:55
COVID-19 Antigen Urgent
Source: Nasal Swab
Influenza A+B Rapid Molecular Urgent
JOSE Source: Nasal Swab
Specimen Description:
Abnormal Lab Results
08/10/24
19:54
WBC 1.6 L* 10^3/uL
(4.8-10.8)
MCHC 32.4 L g/dL
(33.0-37.0)
RDW 16.8 H %
(11.5-14.5)
Plt Count 403 H 10^3/uL
(130-400)
Abs Neuts (Manual) 0.1 L* 10^3/uL
(1.4-6.5)
Segmented Neutrophils 8 L %
(42-75)
Lymphocytes (Manual) 52 H %
(20-51)
Monocytes (Manual) 34 H %
(2-9)
Sodium 134 L mmol/L
(135-145)
BUN 24 H mg/dl
(9-20)
Glucose 152 H mg/dl
(70-99)
Alkaline Phosphatase 156 H U/L
(38-126)
Total Protein 6.2 L g/dl
(6.3-8.2)
08/10/24 19:54
08/10/24 19:54
Vital Signs
Initial and Last Documented VS:
Initial Vital Signs
Temp Pulse Resp BP Pulse Ox
97.6 F 85 25 110/52 94
08/10/24 19:38 08/10/24 19:38 08/10/24 19:38 08/10/24 19:38 08/10/24 19:38
Last Documented Vital Signs
Temp Pulse Resp BP Pulse Ox
97.6 F 85 21 120/67 96
08/10/24 19:38 08/10/24 23:30 08/10/24 23:30 08/11/24 02:00 08/11/24 02:45
MDM/Problems Addressed
Differential Diagnosis Includes:
Patient presents with neutropenia with white blood cell count of 1.6 which is slightly improved from this morning at 1.3.
He remains afebrile with no reported recent fevers.
He does note very mild hoarseness without sore throat. Rare dry cough which is stable and unchanged from his chronic cough related to interstitial lung disease. Concern for potential occult pneumonia however reassuring that patient has been
afebrile.
Overall well in appearance.
His bony metastatic disease has been well-controlled with recent focal XRT to thoracic spine and chronically maintained on morphine 30 mg twice daily.
Posterior pharynx is clear without erythema, no exudate, no evidence of thrush nor ulcerations.
Will check chest x-ray, COVID and influenza testing.
As patient is afebrile, at this point no indication to initiate antibiotics.
Will reach out to heme-onc.
Chronic conditions affecting care: COPD and Cancer
*Radiology
Radiology exam reviewed: preliminary read by ED provider (Chest x-ray is unremarkable, no evidence of pneumonia)
*Pulse Oximetry
Patient hypoxic: no
*EKG
Interpreted by ED Provider?: Yes
Interpretation: normal
Comparison EKG: no changes (Unchanged from previous July 29, 2024)
Rate: normal
Rhythm: sinus
[place]: normal axis
Interval: normal interval
QRS Pattern: normal QRS and poor R-wave progression
Ischemia: no ischemia
*Critical Care Note
Total Time (30-74mins, 75-104mins- exclusive of procedures): Not Applicable
Update Note
Update Note:
22:[address] Ritchie.
Oncologist agrees that patient does not require admission, does not require antibiotics.
Awaiting COVID, influenza and chest x-ray. If these are negative will discharge to home.
ED Attending Note
-
Portions of this chart may have been created with voice recognition software.� Occasional wrong word or��sound alike� substitutions may have occurred due to the inherent limitations of voice recognition software.
Discharge Plan
Departure
Patient Disposition: Home (Routine Discharge)
Date of Disposition: 08/10/24
Time of Disposition: 23:56
Patient with high blood pressure during this ER visit?: No
Condition: Good
Discharge Problem:
chemotherapy related neutropenia
Instructions: Neutropenia, Dealing with Myelosuppression From the Drugs You Take
Prescriptions:
No Action
furosemide 20 mg Tablet
40 mg PO DAILY
Xtandi 40 mg Tablet
160 mg PO DAILY
prednisone 10 mg Tablet
30 mg PO DAILY Qty: 60 0RF
hydromorphone 2 mg Tablet
2 mg PO Q3HPRN PRN (Reason: Breakthrough pain) Qty: 30 0RF
atorvastatin 80 mg Tablet
80 mg PO QPM Qty: 30 0RF
aspirin 81 mg Tablet,Chewable
81 mg PO DAILY Qty: 30 0RF
polyethylene glycol 3350 17 gram Powder In Packet
17 g PO DAILY Qty: 30 0RF
sennosides-docusate sodium 8.6-50 mg Tablet
2 tab PO BID Qty: 60 0RF
clopidogrel 75 mg Tablet
75 mg PO DAILY Qty: 90 4RF
pantoprazole 40 mg Tablet,Delayed Release (Dr/Ec)
40 mg PO DAILY Qty: 30 0RF
morphine 15 mg Tablet Extended Release
30 mg PO Q12 Qty: 60 0RF
gabapentin 100 mg Capsule
100 mg PO TID Qty: 90 0RF
metoprolol succinate 25 mg Tablet Extended Release 24 Hr
25 mg PO BID Qty: 60 0RF
Theragen Tablet
1 tab PO DAILY
amlodipine [Norvasc] 2.5 mg Tablet
2.5 mg PO DAILY
acetaminophen [Tylenol Extra Strength] 500 mg tablet
1,000 mg PO TIDPRN PRN (Reason: mild pain)
lorazepam [Ativan] 0.5 mg tablet
0.5 mg PO BID PRN (Reason: anxiety) Qty: 7 0RF
Referrals:
Mauro Cervantes MD [Family Provider] -
Ximena Patterson DO [Active] - Next open appointment
Interventions
Interventions:
*Risk Screen - Suicide Last Done: 08/10/24 19:38
*General Assessment Last Done: 08/10/24 19:38
*Neglect/Abuse Screening Last Done: 08/10/24 19:42
ED- Fall Risk Assessment Last Done: 08/10/24 21:26
*ED COVID-19 Vaccine History Last Done: 08/10/24 21:25
*Nursing Disposition Last Done: 08/11/24 03:07
Discharge Date and Time
Discharge Date/Time: 08/11/24 03:12
Print Language: K[place]HIL[place]
[2024-08-11] VITALS: BP 132/72
[2024-08-11 01:00] VITALS: BP 130/64
[2024-08-11 02:00] VITALS: BP 120/67
== END 2024-08-11 03:12 | disposition home or self-care (01) ==
LOC: EMR 19:31
PROVIDERS: Emergency Medicine; EMERGENCY PHYSICIAN Emergency Medicine; FAMILY PHYSICIAN Family Medicine
DX: D70.1 Agranulocytosis secondary to cancer chemotherapy (principal); T45.1X5A Adverse effect of antineoplastic and immunosuppressive drugs, initial encounter; X58.XXXA Exposure to other specified factors, initial encounter; E78.00 Pure hypercholesterolemia, unspecified; C79.51 Secondary malignant neoplasm of bone; Z45.2 Encounter for adjustment and management of vascular access device; Z79.52 Long term (current) use of systemic steroids; Z85.46 Personal history of malignant neoplasm of prostate; Z92.3 Personal history of irradiation
CPT/HCPCS: 99283; 71046; 80053; 84153; 85025; 86850; 86900; 86901; 87502; 87811; 93005

== ENCOUNTER 2024-08-19 08:33 | Inpatient (IN) | payer MEDICARE, OTHER, SELFPAY ==
[2024-08-18] VITALS (9 sets, daily range): BP systolic 108–149; BP diastolic 57–76; PULSE 82–84; BMI 33.6; BMI 29.6
--- NOTE | 2024-08-18 19:43 | ED.GENMED ---
History of Present Illness
<UYMIKO Keenan Jr. Last Filed: 08/18/24 21:33>
General
Chief Complaint: Rectal Bleeding
Source: patient
Exam Limitations: none
Time Seen by Provider: 08/18/24 19:27
Nursing documentation reviewed up to this point in time: agreed with
History of Present Illness
History of Present Illness:
83-year-old male with past medical history of CAD hypertension rheumatic heart disease presenting to the emergency department today with concerns of bleeding that started 20 minutes prior to arrival. Patient claims that he had a bowel movement and
then noticed a large gush of red blood. Denies any additional symptoms no abdominal pain no lightheadedness no chest pain or shortness of breath.
Past History
<Roni Boyd Jr., PA-C - Last Filed: 08/18/24 21:33>
Past History
ED Past Medical History: Cancer (Prostate cancer with widespread metastatic disease), Hypercholesterolemia and Other (Rheumatic heart disease)
ED Past Surgical History: Orthopedic and Urological
Social History
Tobacco: Non-smoker
Alcohol: None
Personal:
Living: alone
Employment: Retired
Family History
Family History: Other (Noncontributory)
Review of Systems
<YUMIKO Keenan Jr. Last Filed: 08/18/24 21:33>
Review of Systems
Allergies reviewed?: Yes
All Other Systems: ROS reviewed and negative except as documented in HPI and ROS
Phy Exam
<YUMIKO Keenan Jr. Last Filed: 08/18/24 21:33>
Physical Exam
Physical Exam:
GENERAL: Alert , in no apparent distress
EYE: pupils equal and reactive
NECK: Supple, no significant adenopathy.
ENT: o/p clr, mmm.
CARDIAC: Regular rate and rhythm .
LUNGS: Clear breath sounds bilaterally, no acute respiratory distress, no wheezes/rales/rhonchi
ABDOMEN: Rectal exam with no hemorrhage but red blood in the genital area and clotted blood throughout the area. No pain no hemorrhoid soft, without focal tenderness, no r/g, no cvat
NEUROLOGICAL: Alert and oriented, no focal neuro deficits
SKIN: Warm and dry, skin intact.
MUSCULOSKELETAL: No edema, well perfused.
PSYCH: Normal and appropriate interaction.
Course
<Roni Boyd Jr., YUMIKO - Last Filed: 08/18/24 21:33>
Orders/Labs/Results
Orders:
Orders
08/18/24 19:33
Electrocardiogram (*1) Stat
Reason for Study: Other
Other Reason for Exam: GI Bleed
Cardiac Monitoring- Treatment ONCE
EKG- Treatment ONCE
IV Insert/Care/Rem.- Treatment PRN
08/18/24 19:34
0.9% Sodium Chloride 500 ml [Nss] 500 ml IV BOLUS
08/18/24 19:43
Type+Screen Urgent
Complete Blood Count/With Diff Urgent
Comprehensive Metabolic Panel Urgent
Lactic Acid Urgent
PTT Urgent
Prothrombin Time Urgent
08/18/24 20:16
0.9% Sodium Chloride 500 ml [Nss] 500 ml IV BOLUS
Abnormal Lab Results
08/18/24
19:43
WBC 13.4 H 10^3/uL
(4.8-10.8)
MCHC 31.7 L g/dL
(33.0-37.0)
RDW 18.4 H %
(11.5-14.5)
Abs Immat Gran (auto) 0.6 H 10^3/uL
(0-0.05)
Absolute Neuts (auto) 11.0 H 10^3/uL
(1.4-6.5)
Absolute Lymphs (auto) 0.9 L 10^3/uL
(1.2-3.4)
Absolute Monos (auto) 0.9 H 10^3/uL
(0.1-0.6)
Immature Gran % 4.2 H %
(0-0.5)
Neutrophils % 82.1 H %
(42.2-75.2)
Lymphocytes % 6.7 L %
(20.5-51.1)
Carbon Dioxide 18 L mmol/L
(22-30)
BUN 30 H mg/dl
(9-20)
Glucose 191 H mg/dl
(70-99)
Lactic Acid 2.6 H mmol/L
(0.7-2.0)
Alkaline Phosphatase 152 H U/L
(38-126)
Total Protein 6.2 L g/dl
(6.3-8.2)
08/18/24 19:43
08/18/24 19:43
Vital Signs
Initial and Last Documented VS:
Initial Vital Signs
Temp Pulse Resp BP Pulse Ox
97.5 F 98 14 121/67 96
08/18/24 19:28 08/18/24 19:28 08/18/24 19:28 08/18/24 19:28 08/18/24 19:28
Last Documented Vital Signs
Temp Pulse Resp BP Pulse Ox
97.5 F 88 18 108/61 96
08/18/24 19:28 08/18/24 21:15 08/18/24 21:15 08/18/24 21:00 08/18/24 21:15
<Lian Mo MD - Last Filed: 08/18/24 20:18>
Orders/Labs/Results
Orders:
Orders
08/18/24 19:33
Electrocardiogram (*1) Stat
Reason for Study: Other
Other Reason for Exam: GI Bleed
Cardiac Monitoring- Treatment ONCE
EKG- Treatment ONCE
IV Insert/Care/Rem.- Treatment PRN
08/18/24 19:34
0.9% Sodium Chloride 500 ml [Nss] 500 ml IV BOLUS
08/18/24 19:43
Type+Screen Urgent
Complete Blood Count/With Diff Urgent
Comprehensive Metabolic Panel Urgent
Lactic Acid Urgent
PTT Urgent
Prothrombin Time Urgent
08/18/24 20:16
0.9% Sodium Chloride 500 ml [Nss] 500 ml IV BOLUS
Abnormal Lab Results
08/18/24
19:43
WBC 13.4 H 10^3/uL
(4.8-10.8)
MCHC 31.7 L g/dL
(33.0-37.0)
RDW 18.4 H %
(11.5-14.5)
Abs Immat Gran (auto) 0.6 H 10^3/uL
(0-0.05)
Absolute Neuts (auto) 11.0 H 10^3/uL
(1.4-6.5)
Absolute Lymphs (auto) 0.9 L 10^3/uL
(1.2-3.4)
Absolute Monos (auto) 0.9 H 10^3/uL
(0.1-0.6)
Immature Gran % 4.2 H %
(0-0.5)
Neutrophils % 82.1 H %
(42.2-75.2)
Lymphocytes % 6.7 L %
(20.5-51.1)
Carbon Dioxide 18 L mmol/L
(22-30)
BUN 30 H mg/dl
(9-20)
Glucose 191 H mg/dl
(70-99)
Lactic Acid 2.6 H mmol/L
(0.7-2.0)
Alkaline Phosphatase 152 H U/L
(38-126)
Total Protein 6.2 L g/dl
(6.3-8.2)
08/18/24 19:43
08/18/24 19:43
Vital Signs
Initial and Last Documented VS:
Initial Vital Signs
Temp Pulse Resp BP Pulse Ox
97.5 F 98 14 121/67 96
08/18/24 19:28 08/18/24 19:28 08/18/24 19:28 08/18/24 19:28 08/18/24 19:28
Last Documented Vital Signs
Temp Pulse Resp BP Pulse Ox
97.5 F 88 18 108/61 96
08/18/24 19:28 08/18/24 21:15 08/18/24 21:15 08/18/24 21:00 08/18/24 21:15
<Roni Boyd Jr., PA-C - Last Filed: 08/18/24 21:33>
MDM/Problems Addressed
MDM/Problems Addressed:
84-year-old male presenting to the emergency department today with concerns of rectal bleeding starting 20 minutes prior to arrival. Denies any history of this. Does take Plavix for CAD previous stent. Denies abdominal pain lightheadedness chest
pain or shortness of breath. Heart rate in the 90s blood pressure normal. Denies GI issues at baseline. On examination no active hemorrhage. Vital signs are normal here. Blood pressure in normal range hemoglobin at 13.0 no abdominal pain to
palpation BUN is elevated creatinine was given fluids also elevated lactic acid. Case was discussed with GI plan to admit for monitoring. GI recommends bleeding scan only if bleeding is persisting overnight.
<Roni Boyd Jr., PA-C - Last Filed: 08/18/24 21:33>
*Critical Care Note
Total Time (30-74mins, 75-104mins- exclusive of procedures): Not Applicable
ED Attending Note
<YUMIKO Keenan Jr. Last Filed: 08/18/24 21:33>
-
Portions of this chart may have been created with voice recognition software.� Occasional wrong word or��sound alike� substitutions may have occurred due to the inherent limitations of voice recognition software.
<Lian Mo MD - Last Filed: 08/18/24 20:18>
ED Attending Note
Patient seen and examined by attending physician: Yes
I performed the substantive portion of visit, reviewed & personally made and approve the management plan that is documented in note by myself or JAMES.: Yes
ED Attending Note:
Patient appears well-perfused. He is fully awake, alert. He is breathing comfortably.
Discharge Plan
Departure
Patient Disposition: Admit
Date of Disposition: 08/18/24
Time of Disposition: 21:33
Admit to: Telemetry
Admit to doctor: Julian
Presentation/result/management discussed w/ accepting MD/DO: Hospitalist
Patient with high blood pressure during this ER visit?: No
Condition: Fair
Covid-19: Not Applicable
Discharge Problem:
Acute GI bleeding
Prescriptions:
No Action
furosemide 20 mg Tablet
40 mg PO DAILY
hydromorphone 2 mg Tablet
2 mg PO Q3HPRN PRN (Reason: Breakthrough pain) Qty: 30 0RF
atorvastatin 80 mg Tablet
80 mg PO QPM Qty: 30 0RF
aspirin 81 mg Tablet,Chewable
81 mg PO DAILY Qty: 30 0RF
polyethylene glycol 3350 17 gram Powder In Packet
17 g PO DAILY Qty: 30 0RF
sennosides-docusate sodium 8.6-50 mg Tablet
2 tab PO BID Qty: 60 0RF
clopidogrel 75 mg Tablet
75 mg PO DAILY Qty: 90 4RF
pantoprazole 40 mg Tablet,Delayed Release (Dr/Ec)
40 mg PO DAILY Qty: 30 0RF
morphine 15 mg Tablet Extended Release
30 mg PO Q12 Qty: 60 0RF
metoprolol succinate 25 mg Tablet Extended Release 24 Hr
25 mg PO BID Qty: 60 0RF
Theragen Tablet
1 tab PO DAILY
amlodipine [Norvasc] 2.5 mg Tablet
2.5 mg PO DAILY
acetaminophen [Tylenol Extra Strength] 500 mg tablet
1,000 mg PO TIDPRN PRN (Reason: mild pain)
ondansetron HCl [Zofran] 8 mg Tablet
8 mg PO Q8H PRN (Reason: nausea)
prochlorperazine maleate 10 mg Tablet
10 mg PO Q6H PRN (Reason: nausea)
sertraline
50 mg PO DAILY
prednisone 10 mg tablet
5 mg PO BID
Referrals:
Mauro Cervantes MD [Family Provider] -
Interventions
Interventions:
*Risk Screen - Suicide Last Done: 08/18/24 19:28
*General Assessment Last Done: 08/18/24 19:28
*Neglect/Abuse Screening Last Done: 08/18/24 19:28
ED- Fall Risk Assessment Last Done: 08/18/24 20:06
*ED COVID-19 Vaccine History Last Done: 08/18/24 19:28
OS-Stqquy-Cthsgawcgw Assessment Last Done: 08/18/24 20:06
ED- Cardiac Assessment Last Done: 08/18/24 20:06
ED- Pulmonary Assessment Last Done: 08/18/24 20:06
Discharge Date and Time
Print Language: YI
[2024-08-18] MEDS: NSS 500 IV ×2 (19:44→20:21)
[2024-08-18 19:53] LABS: % Basophils 0.4 % (0-2); % Immature Granulocytes 4.2 % (0-0.5); % Lymphocytes 6.7 % (20.5-51.1); % Monocytes 6.6 % (1.7-9.3); % Neutrophils 82.1 % (42.2-75.2); Absolute Basophils 0.1 10^3/uL (0-0.2); Absolute Immature Granulocytes 0.6 10^3/uL (0-0.05); Absolute Lymphocytes 0.9 10^3/uL (1.2-3.4); Absolute Monocytes 0.9 10^3/uL (0.1-0.6); Mean Corp Hgb Conc. 31.7 g/dL (33.0-37.0); Mean Corpuscular Hgb 27.6 pg (27.0-31.0); Mean Platelet Volume 9.5 fL (7.4-10.4); Nucleated Red Blood Cells % 0.1 % (-); Platelet Count 319 10^3/uL (130-400); Red Blood Cell Count 4.71 10^6/uL (4.70-6.10); Red Cell Dist. Width 18.4 % (11.5-14.5); White Blood Cell Count 13.4 10^3/uL (4.8-10.8)
[2024-08-18 20:04] LABS: INR 0.97; PT 13.2 Sec (11.4-14.6)
[2024-08-18 20:05] LABS: APTT 28.5 Sec (23.4-35.0)
[2024-08-18 20:06] LABS: Lactic Acid 2.6 mmol/L (0.7-2.0)
[2024-08-18 20:43] LABS: ALT (SGPT) 25 U/L (0-50); AST (SGOT) 33 U/L (17-59); Albumin 3.9 g/dl (3.5-5.0); Alkaline Phosphatase 152 U/L (38-126); Blood Urea Nitrogen 30 mg/dl (9-20); Calcium 8.5 mg/dl (8.4-10.2); Carbon Dioxide 18 mmol/L (22-30); Chloride 103 mmol/L (98-107); Estimated Creatinine Clearance 89 ml/min; Glucose 191 mg/dl (70-99); Potassium 4.4 mmol/L (3.5-5.1); Sodium 135 mmol/L (135-145); Total Bilirubin 0.8 mg/dl (0.2-1.3); Total Protein 6.2 g/dl (6.3-8.2); eGFR > 60.00
--- NOTE | 2024-08-18 22:03 | HPS.HSE ---
Family Physician
-
Family Physician: Mauro Cervantes
Chief Complaint
-
Rectal Bleeding
History of Present Illness
Patient is an 83y M with PMH significant for metastatic prostate cancer on chemotherapy who presents to ED complaining of rectal bleeding. Patient states that he has been feeling fairly well of late. This evening he had a normal BM just before
dinner. After eating, he again felt the urge to go. He was unable to make it to the bathroom and instead was incontinent of bright red blood. No significant stool. Patient estimates about 1/4 cup total of blood - though he also describes that it
was on his clothes, the floors, etc. There was single visible clot as well. Patient had no rectal pain, burning, crampy abdominal pain, etc.
He denies any lightheadedness, dizziness, N/V, etc.
Patient received his first dose of chemo on 08/01. He was seen here in the ED on 08/10 for neutropenia.
He received 5 XRT sessions prior to beginning chemo - to the upper back / thoracic spine.
Patient also recently underwent PTCA with stent placement on 06/12/24 with 3 stents to the LAD. He has been on DAPT since that time.
He is on chronic prednisone for pain control.
Medical History
Past Medical History
Past Medical History: Reports Other
Additional Past Medical History:
Prostate Cancer s/p Chemo then Prostatectomy - Recurrence 2022
ASCVD
Dyslipidemia
Rheumatic Fever (9yo)
Bladder Stones
Osteoarthritis
Past Surgical History: Reports Other
Additional Past Surgical History:
PTCA with Stent (05/2024)
Prostatectomy
Bilateral BRENDAN
Cystoscopy / Bladder Stone removal
Skin Cancer Excision
T&A
Social History
Tobacco: Non-smoker
Alcohol: Occasional
Drug: None
Family History
Family History: Other (Father / Brother: Prostate Cancer)
Allergies / Home Medications
Allergies reflects when Allergies were last updated in [employer].
Home Medications with original date entered in [employer]
Allergy/Medication List:
Allergies
Allergy/AdvReac Type Severity Reaction Status Date / Time
tetanus toxoid, adsorbed Allergy Hives Verified 08/10/24 19:45
Home Medications
furosemide 20 mg tablet 40 mg PO DAILY Fluid Retention/Swelling 04/26/23
aspirin 81 mg chewable tablet 81 mg PO DAILY #30 tabs 06/19/24
atorvastatin 80 mg tablet 80 mg PO QPM #30 tabs 06/19/24
clopidogrel 75 mg tablet 75 mg PO DAILY #90 tabs 06/19/24
hydromorphone 2 mg tablet 2 mg PO Q3HPRN PRN Breakthrough pain #30 tabs 06/19/24
metoprolol succinate 25 mg tablet,extended release 24 hr 25 mg PO BID #60 tabs 06/19/24
morphine 15 mg tablet,extended release 30 mg (2 x 15 mg) PO Q12 #60 tabs 06/19/24
pantoprazole 40 mg tablet,delayed release 40 mg PO DAILY #30 tabs 06/19/24
polyethylene glycol 3350 17 gram oral powder packet 17 g PO DAILY #30 ea 06/19/24
sennosides 8.6 mg-docusate sodium 50 mg tablet 2 tab PO BID #60 tabs 06/19/24
acetaminophen 500 mg tablet (Tylenol Extra Strength) 1,000 mg PO TIDPRN PRN mild pain 07/29/24
amlodipine 2.5 mg tablet (Norvasc) 2.5 mg PO DAILY 07/29/24
therapeutic multivitamin 1 tab PO DAILY 07/29/24
ondansetron HCl 8 mg tablet 8 mg PO Q8H PRN nausea 08/18/24
prednisone 10 mg tablet 5 mg PO BID 08/18/24
prochlorperazine maleate 10 mg tablet 10 mg PO Q6H PRN nausea 08/18/24
sertraline 50 mg PO DAILY 08/18/24
Review of Systems
-
History Source: Patient
A 12 point ROS was completed and negative except as noted: Yes
Constitutional: Denies Fever, Fatigue or Chills
Respiratory: Reports Trouble Breathing (chronic SOB); Denies Cough
Cardiac: Denies Chest Pain or Palpitations
Abdomen/GI: Reports Bloody Stools; Denies Abdominal Pain, Nausea, Vomiting, Diarrhea or Black Stools
: Denies Dysuria, Frequency, Flank Pain or Bleeding
Neurological: Denies Dizzy or Headache
Psych: Denies Depression or Anxiety
Physical Exam
Vital Signs
Vital Signs
Temp Pulse Resp BP Pulse Ox
97.5 F 73 12 116/57 95
08/18/24 19:28 08/18/24 21:45 08/18/24 21:45 08/18/24 21:30 08/18/24 21:45
Physical Exam
General: Other (83y M in no acute distress.)
HEENT: Moist mucous membranes and PERRLA
Respiratory: Other (Few scattered rales / wheezes.)
Cardiac: S1/S2 and Regular Rhythm; No Murmur
GI: Soft, Non Tender, Non Distended and Normal Bowel Sounds
Musculoskeletal: No Clubbing, No Cyanosis and No Edema
Neuro: AO x 3
Laboratory Results
-
08/18/24 19:43
08/18/24 19:43
Laboratory Results
PT 13.2 Sec (11.4-14.6) 08/18/24 19:43
INR 0.97 08/18/24 19:43
APTT 28.5 Sec (23.4-35.0) 08/18/24 19:43
Lactic Acid 2.6 mmol/L (0.7-2.0) H 08/18/24 19:43
Total Bilirubin 0.8 mg/dl (0.2-1.3) 08/18/24 19:43
AST 33 U/L (17-59) 08/18/24 19:43
ALT 25 U/L (0-50) 08/18/24 19:43
Alkaline Phosphatase 152 U/L (38-126) H 08/18/24 19:43
Impression/Plan
-
A/P: Patient is an 83y M with PMH significant for ASCVD and prostate cancer who presents to ED complaining of rectal bleeding.
Rectal Bleeding
- Observe overnight for further evaluation and treatment.
- No ongoing / active bleeding appreciated on exam.
- Hgb / vitals are stable at present.
- Will hold Plavix for now but continue ASA uninterrupted.
- Follow for any new / recurrent bleeding.
- GI evaluation for additional recommendations.
ASCVD
- Stable. No chest pain. No change in chronic dyspnea.
- Patient with chronic back discomfort related to metastatic disease - unchanged after cath / stents.
- Continue ASA uninterrupted as noted above.
- Hold Plavix for now.
Metastatic Prostate Cancer
- s/p initial dose of chemo (08/01/24) - next dose upcoming.
- Continue current pain management medications and adjust as needed for adequate pain control.
- Follow-up with Oncology as an outpatient.
- Previously noted neutropenia has resolved.
DVT Prophylaxis: SCDs
Code Status: Full
--- NOTE | 2024-08-18 23:55 | PTCARENOTE ---
PT from ED A+OX 3 VSS, pt with small amount of blood per rectum. Care is ongoing.
[2024-08-19] VITALS (17 sets, daily range): BP systolic 104–148; BP diastolic 48–84
[2024-08-19] MEDS: NSS 1000 IV ×2 (00:13→10:06)
--- NOTE | 2024-08-19 05:08 | PTCARENOTE ---
Addendum entered by Carolina Christensen 08/19/24 05:41:
Pt with X2 more large bloody BMs with blood clots. 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
Original Note:
Pt with large amount of blood/dark blood clots when turning in bed. BP 141/84 HR 87 denies dizziness. Labs drawn now, house plasterer rough aware.
[2024-08-19 05:26] LABS: Hematocrit 33.9 % (39.0-52.0); Mean Corp Hgb Conc. 32.4 g/dL (33.0-37.0); Mean Corpuscular Hgb 28.3 pg (27.0-31.0); Mean Corpuscular Volume 87.1 fL (80.0-94.0); Mean Platelet Volume 9.4 fL (7.4-10.4); Platelet Count 275 10^3/uL (130-400); Red Blood Cell Count 3.89 10^6/uL (4.70-6.10); Red Cell Dist. Width 17.8 % (11.5-14.5); White Blood Cell Count 10.2 10^3/uL (4.8-10.8)
[2024-08-19] MEDS: TYLENOL 650 MG PO (05:44)
[2024-08-19 05:53] LABS: Blood Urea Nitrogen 26 mg/dl (9-20); Calcium 7.6 mg/dl (8.4-10.2); Carbon Dioxide 23 mmol/L (22-30); Chloride 108 mmol/L (98-107); Estimated Creatinine Clearance 110 ml/min; Glucose 122 mg/dl (70-99); Potassium 4.3 mmol/L (3.5-5.1); Sodium 137 mmol/L (135-145); eGFR > 60.00
--- NOTE | 2024-08-19 07:20 | W.PN.HOSP.TC ---
Today's Communication/Plan
-
CT abd/pelvis angio
transfuse 2PRBC
transfer to IMU
protonix 40 mg IV BID
Assessment / Plan
Assessment / Plan
Physical Exam
General: no acute distress appears comfortable at this time, no pallor, cyanosis, or jaundice
HEENT: Moist mucous membranes and PERRLA
Respiratory: Clear to auscultation b/l no wheezes rubs crackles
Cardiac: S1/S2 sinus tachy no murmur
GI: Soft, Non Tender, Non Distended and Normal Bowel Sounds
Musculoskeletal: No Clubbing, No Cyanosis and No Edema
Neuro: AO x 3 conversant coherent
Psych: calm
A/P: Patient is an 83y M with PMH significant for ASCVD and prostate cancer who presents to ED complaining of rectal bleeding.
BRBPR
Multiple Bloody Bowel Movements Morning following admission
- Plavix held on admission
- received home ASA morning 08/19 since placed on hold d/t bloody BM's as above
- GI eval appreciated
- urgent CT abd/pelvis angio ordered
- 2PRBC transfusions ordered, patient consented
-Transfer requested for IMU, Accounts Receivable Assistant eval requested
-Protonix 40 mg IV BID
ASCVD
CAD stents May 2024
- Stable. No chest pain. No change in chronic dyspnea.
- Patient with chronic back discomfort related to metastatic disease - unchanged after cath / stents.
- Plavix ASA held as above
Metastatic Prostate Cancer
- on chemorad
- s/p initial dose of chemo (08/01/24) - next dose upcoming.
- Continue current pain management medications and adjust as needed for adequate pain control.
- Follow-up with Oncology as an outpatient.
DVT Prophylaxis: SCDs
Code Status: Full
Discussed with patient, patient's significant other HARVEY Page, GI, and painter rough
I spent a total of 60 minutes with the patient or on the floor. More than 50% of this time involved counseling and coordination of care.
Anticipated Discharge: > 48 hours
Subjective/Interval History
-
Date of Service: August 19, 2024
Multiple blood bowel movements in the morning. Patient resting comfortably in bed no acute distress. denies pain. Tachy but not hypotensive. AOx3
Objective Data
-
Labs:
Laboratory Results
08/18/24 08/19/24
19:43 05:15
WBC 13.4 H 10.2
Hgb 13.0 11.0 L
Hct 41.0 33.9 L
Plt Count 319 275
PT 13.2
INR 0.97
APTT 28.5
Sodium 135 137
Potassium 4.4 4.3
Chloride 103 108 H
Carbon Dioxide 18 L 23
BUN 30 H 26 H
Creatinine 0.8 0.6 L
Glucose 191 H 122 H
Calcium 8.5 7.6 L
Total Bilirubin 0.8
AST 33
ALT 25
Alkaline Phosphatase 152 H
Vital Signs:
Vital Signs
Temp Pulse Resp BP Pulse Ox
97.5 F 87 18 141/84 97
08/19/24 03:53 08/19/24 05:11 08/19/24 03:53 08/19/24 05:11 08/19/24 03:53
I&O
08/18/24 08/19/24 08/20/24
06:59 06:59 06:59
Intake Total 240 / 240
Output Total 825 / 825
Balance -585 / -585
[2024-08-19] MEDS: MS CONTIN (EXTENDED RELEASE) 30 MG PO ×2 (08:04→20:25)
[2024-08-19] MEDS: PROTONIX 40 MG PO (08:04)
[2024-08-19] MEDS: LOW STRENGTH ASPIRIN 81 MG PO (08:04)
[2024-08-19] MEDS: TOPROL XL 25 MG PO ×2 (08:04→20:26)
[2024-08-19] MEDS: ZOLOFT 50 MG PO (08:04)
[2024-08-19] MEDS: DELTASONE 5 MG PO ×2 (08:04→20:25)
[2024-08-19] MEDS: CALCIUM GLUCONATE 100 IV (08:57)
[2024-08-19] MEDS: PROTONIX IV 40 MG IV ×2 (09:05→20:25)
[2024-08-19] MEDS: NSS (PRESERVATIVE FREE) 10 ML IV ×2 (09:05→20:25)
--- NOTE | 2024-08-19 09:09 | CON.GI ---
Consultation
-
Date/Time Consultation Requested: 08/18/24
Date/Time Consultation Performed: 08/19/24
Requesting Provider: Dr. Jordan
Performing Provider:
Reason for Consultation: LGIB
Medical History
Chief Complaint / HPI
Chief Complaint: rectal bleeding
History of Present Illness:
is a 83-year-old male with past medical history of prostate Cancer dx 20 years ago s/p Chemo then Prostatectomy with Recurrence 2022 with bone mets and was started on chemo initially oral he says that recently was switched to IV 08/01 and was
also on radiation treatment X 5 sessions which he just completed about a week ago sees , ASCVD, CAD s/p PTCA with stent placement on 06/12/24 with 3 stents to the LAD has been on DAPT since that time., Dyslipidemia,Rheumatic Fever
(9yo),Bladder Stones, Osteoarthritis, diverticulosis was in his usual state of health up until yesterday when he had a large amount of rectal bleeding after dinner and then he presented to the emergency room had 2 more episodes and none since then
but today morning he had 5 more episodes of bright red blood per rectum with clots. He denies any dizziness or syncope. Denies any nausea vomiting or hematemesis. He denies any symptoms of reflux or dyspepsia. Denies any NSAID use recently. He
is also on chronic prednisone therapy. He has never had a colonoscopy in the past he says he has been doing stool Fit test or occult blood testing for the past couple of years. He has never had an endoscopy either in the past.
Past Medical History
Past Medical History: Other (Prostate Cancer initially dx 2002 s/p Chemo then Prostatectomy - Recurrence 2022,ASCVD, Dyslipidemia, Rheumatic Fever (9yo), Bladder Stones, Osteoarthritis)
Past Surgical History: Other (PTCA with Stent (05/2024), Prostatectomy, Bilateral BRENDAN, Cystoscopy / Bladder Stone removal, Skin Cancer Excision, T&A)
Social History
Tobacco: Non-Smoker
Alcohol: Occasional
Drug: None
Family History
Family History: Other (father and brother prostate cancer, sister breast cancer, mother pancreatic cancer)
Allergies / Home Medications
Allergy/AdvReac Type Severity Reaction Status Date / Time
tetanus toxoid, adsorbed Allergy Hives Verified 08/10/24 19:45
�Medication �Instructions �Recorded
furosemide 20 mg tablet 40 mg PO DAILY Fluid 04/26/23
Retention/Swelling
aspirin 81 mg chewable tablet 81 mg PO DAILY #30 tabs 06/19/24
atorvastatin 80 mg tablet 80 mg PO QPM #30 tabs 06/19/24
clopidogrel 75 mg tablet 75 mg PO DAILY #90 tabs 06/19/24
hydromorphone 2 mg tablet 2 mg PO Q3HPRN PRN Breakthrough 06/19/24
pain #30 tabs
metoprolol succinate 25 mg 25 mg PO BID #60 tabs 06/19/24
tablet,extended release 24 hr
morphine 15 mg tablet,extended 30 mg (2 x 15 mg) PO Q12 #60 tabs 06/19/24
release
pantoprazole 40 mg tablet,delayed 40 mg PO DAILY #30 tabs 06/19/24
release
polyethylene glycol 3350 17 gram 17 g PO DAILY #30 ea 06/19/24
oral powder packet
sennosides 8.6 mg-docusate sodium 2 tab PO BID #60 tabs 06/19/24
50 mg tablet
acetaminophen 500 mg tablet 1,000 mg PO TIDPRN PRN mild pain 07/29/24
(Tylenol Extra Strength)
amlodipine 2.5 mg tablet (Norvasc) 2.5 mg PO DAILY 07/29/24
therapeutic multivitamin 1 tab PO DAILY 07/29/24
ondansetron HCl 8 mg tablet 8 mg PO Q8H PRN nausea 08/18/24
prednisone 10 mg tablet 5 mg PO BID 08/18/24
prochlorperazine maleate 10 mg 10 mg PO Q6H PRN nausea 08/18/24
tablet
sertraline 50 mg PO DAILY 08/18/24
Review of Systems
-
All other systems: A 12 pt ROS was Negative except as stated above in HPI
Vital Signs
Temp Pulse Resp BP Pulse Ox
97.5 F 103 18 120/70 97
08/19/24 07:10 08/19/24 08:04 08/19/24 07:10 08/19/24 08:04 08/19/24 07:10
Physical Exam
Exam
General: No Apparent Distress
HEENT: Normocephalic
Respiratory: Clear
Cardiac: S1/S2 and Regular Rhythm
GI: Soft, Non Tender, Non Distended and Normal Bowel Sounds
Musculoskeletal: No Clubbing
Skin: Warm
Neuro: AO x 3
Psych: Calm
Results
WBC 10.2 10^3/uL (4.8-10.8) 08/19/24 05:15
Hgb 11.0 g/dL (13.0-18.0) L 08/19/24 05:15
Hct 33.9 % (39.0-52.0) L 08/19/24 05:15
MCV 87.1 fL (80.0-94.0) 08/19/24 05:15
Plt Count 275 10^3/uL (130-400) 08/19/24 05:15
Absolute Neuts (auto) 11.0 10^3/uL (1.4-6.5) H 08/18/24 19:43
PT 13.2 Sec (11.4-14.6) 08/18/24 19:43
INR 0.97 08/18/24 19:43
APTT 28.5 Sec (23.4-35.0) 08/18/24 19:43
Sodium 137 mmol/L (135-145) 08/19/24 05:15
Potassium 4.3 mmol/L (3.5-5.1) 08/19/24 05:15
Chloride 108 mmol/L (98-107) H 08/19/24 05:15
Carbon Dioxide 23 mmol/L (22-30) 08/19/24 05:15
BUN 26 mg/dl (9-20) H 08/19/24 05:15
Creatinine 0.6 mg/dL (0.7-1.3) L 08/19/24 05:15
Calcium 7.6 mg/dl (8.4-10.2) L 08/19/24 05:15
Total Bilirubin 0.8 mg/dl (0.2-1.3) 08/18/24 19:43
AST 33 U/L (17-59) 08/18/24 19:43
ALT 25 U/L (0-50) 08/18/24 19:43
Alkaline Phosphatase 152 U/L (38-126) H 08/18/24 19:43
Diagnostic Image Results:
06/18/24 CT abd/pelvis
IMPRESSION:
Marked widespread sclerotic bony metastatic disease without significant change in comparison to recent prior study.
New left lower lobe subsegmental atelectasis.
Stable small retroperitoneal and bilateral inguinal lymph nodes.
Stable posterior segment right lobe hepatic cyst. Additional subcentimeter low-attenuation right lobe hepatic lesion too small to characterize.
Symmetric renal excretion. Nonobstructing left renal calculus. Small simple renal cysts as well as additional subcentimeter low-attenuation renal lesions too small to characterize.
Marked beam hardening artifact from bilateral hip arthroplasty significantly obscuring the soft tissues of the true pelvis.
Prior GI Procedures:
EGD: none
Colonoscopy: none
Assessment / Plan
-
1. Painless rectal bleeding multiple episodes since last night with mild drop in Hb from 13 on admission to 11 today he is on ASA and Plavix and also is on chronic prednisone therapy. Most likely etiology is probably diverticulosis versus
radiation proctitis versus angioectasias less likely upper GI bleed is hemodynamically stable and his BUN was only minimally elevated. Will get a stat CT angiogram. Agree with Protonix twice daily. Plavix has been on hold and he did receive his
aspirin today may not be able to hold his aspirin given his recent stents but if he does have further bleeding may need to hold aspirin also for now. May need NG placement to rule out upper GI bleed but will hold for now.
2. Recurrent metastatic prostate CA with mets to the bone sees Dr. Patterson and had recently been started on chemo and also received radiation treatment
3. History of CAD status post stent to LAD in May 2024 was on aspirin and Plavix prior to admission
Data Reviewed
-
CT Scan: Report Reviewed by me
-
-
Thank you for consultation and allowing me to participate in the patient's care. Please call the professional system administrator GI physician during the after hours with any questions or concerns.
--- NOTE | 2024-08-19 09:32 | CON.INTV ---
Consultation
Consultation Request
Date/Time Consultation Requested: 08/19/2024 - 911
Date/Time Consultation Performed: 08/19/2024927
Requesting Provider: Dr. Martin
Performing Provider: Dr. Ann
Reason for Consultation: GI Bleed
Medical History
-
Chief Complaint: Rectal bleeding
History of Present Illness:
83-year-old male with a past medical history of recurrent metastatic prostate cancer on hormone therapy, ILD, mild restrictive lung disease, lung nodules, history of asbestos exposure, insomnia, history of rheumatic fever, history of skin cancer
(BCC s/p Mohs in 1999), CAD s/p THOMAS x2 to LAD (06/12/2024), chronic HFpEF, hyperlipidemia and hypertension who presents with rectal bleeding that started 20 minutes prior to arrival. He reports that he is being treated for his prostate cancer with
immunotherapy. Had a normal bowel movement prior to dinner yesterday. Patient currently on aspirin and Plavix due to recent cardiac stent placed in May 2024 to the LAD. In the ER he was afebrile to 97.5 �F, pulse rate 98, breathing at 14
breaths/min, BP 121/67, and saturating 96% on room air. Initial Hb was 13 g/dL, WBC 13.4, platelet count 319, INR 0.97, PTT: 28.5 seconds, BUN: 30, creatinine 0.8, glucose 191, lactate 2.6, and ALP: 152. Admission CXR showed no acute
cardiopulmonary disease. He was admitted to the Telemetry for further care and due to worsening rectal bleeding seen this morning, Lithograph Designer/pulmonary service is consulted and patient being transferred to the IMU from the floor.
When I saw the pt he was in bed, getting his blood transfusion, and was in NAD. He had a small bloody BM with clots when he came to the IMU, but no bleeding since. HR 90, BP 126/65 and SpO2 96% on room air. He denies abd pain, chest pain, DURÁN, LUE
pain, neck pain, N/V/f/c. He does have SOB with exertion, but this is chronic and no worse today.
Of note patient follows with us in the [facility] office with Dr. Rowley, last visit 02/09/2024. He is mild interstitial changes in the bases with subpleural reticular opacities and groundglass. Also multiple pulmonary nodules which appear benign. Has
a history of asbestos exposure with pleural plaques seen. 6 MWT performed in October 2023 showing no need for O2. Last PFT performed in June 2023 showing mild restrictive lung disease with T% predicted, VC: 81%. Also a moderate diffusion
capacity defect (DLco: 40%, DLco/VA: 59%).
PMHx: Metastatic prostate cancer on lupron and xtandi, anemia, right inguinal hernia, CAD s/p THOMAS x 2 to LAD (06/12/2024), ILD, mild restrictive lung disease, lung nodules, history of asbestos exposure, insomnia, history of rheumatic fever, history
of skin cancer (BCC s/p Mohs in 1999), chronic HFpEF, hyperlipidemia and hypertension
PSHx: Hip replacement, prostatectomy, urinary stones, cardiac cath
Past Medical History
Past Medical History: Other (Above as per HPI)
Past Surgical History: Other (Above as per HPI)
Social History
Tobacco: Non-smoker
Alcohol: None
Drug: None
Personal:
Living: Alone
Family History
Family History: Cancer (Father: Prostate cancer ( suddenly in the shower); Mother: Pancreatic cancer; Sibling: Prostate cancer; Sibling: Breast cancer)
Allergies / Home Medications
Allergies
Allergy/AdvReac Type Severity Reaction Status Date / Time
tetanus toxoid, adsorbed Allergy Hives Verified 08/10/24 19:45
Home Medications
�Medication �Instructions �Recorded �Confirmed �Last Taken �Type
furosemide 20 mg tablet 40 mg PO DAILY Fluid 04/26/23 08/18/24 07/29/24 History
Retention/Swelling
aspirin 81 mg chewable tablet 81 mg PO DAILY #30 tabs 06/19/24 08/18/24 07/29/24 Rx
atorvastatin 80 mg tablet 80 mg PO QPM #30 tabs 06/19/24 08/18/24 07/28/24 Rx
clopidogrel 75 mg tablet 75 mg PO DAILY #90 tabs 06/19/24 08/18/24 07/29/24 Rx
hydromorphone 2 mg tablet 2 mg PO Q3HPRN PRN Breakthrough 06/19/24 08/18/24 07/20/24 Rx
pain #30 tabs
metoprolol succinate 25 mg 25 mg PO BID #60 tabs 06/19/24 08/18/24 07/29/24 Rx
tablet,extended release 24 hr
morphine 15 mg tablet,extended 30 mg (2 x 15 mg) PO Q12 #60 tabs 06/19/24 08/18/24 07/29/24 Rx
release
pantoprazole 40 mg tablet,delayed 40 mg PO DAILY #30 tabs 06/19/24 08/18/24 07/29/24 Rx
release
polyethylene glycol 3350 17 gram 17 g PO DAILY #30 ea 06/19/24 08/18/24 Unknown Rx
oral powder packet
sennosides 8.6 mg-docusate sodium 2 tab PO BID #60 tabs 06/19/24 08/18/24 Unknown Rx
50 mg tablet
acetaminophen 500 mg tablet 1,000 mg PO TIDPRN PRN mild pain 07/29/24 08/18/24 Unknown History
(Tylenol Extra Strength)
amlodipine 2.5 mg tablet (Norvasc) 2.5 mg PO DAILY Blood Pressure 07/29/24 08/18/24 07/29/24 History
therapeutic multivitamin 1 tab PO DAILY Supplement 07/29/24 08/18/24 07/29/24 History
ondansetron HCl 8 mg tablet 8 mg PO Q8H PRN nausea 08/18/24 08/18/24 Unknown History
prednisone 10 mg tablet 5 mg PO BID INFLAMMATION 08/18/24 08/18/24 Unknown History
prochlorperazine maleate 10 mg 10 mg PO Q6H PRN nausea 08/18/24 08/18/24 Unknown History
tablet
sertraline 50 mg PO DAILY Mental 08/18/24 08/18/24 Unknown History
Health/Anxiety
Review of Systems
-
History Source: Patient
All other systems: Negative unless noted
Vitals / Labs / Diagnostic Testing
Vital Signs
Temp Pulse Resp BP Pulse Ox
97.5 F 103 18 120/70 97
08/19/24 07:10 08/19/24 08:04 08/19/24 07:10 08/19/24 08:04 08/19/24 07:10
Lab Data
08/19/24 05:15
08/19/24 05:15
Laboratory Results
08/18/24
19:43
PT 13.2
INR 0.97
APTT 28.5
Diagnostic Testing:
Physical Exam
-
HEENT: Anicteric and Other (Mild pallor in conjunctiva bilaterally)
Cardiovascular: S1/S2 and Peripheral Edema (negative)
Respiratory: Clear, Wheeze (negative), Rales (negative), Rhonchi (negative) and Non-Labored Respirations
GI: Soft, Distended (Abdominal obesity), Non Tender and Normal Bowel Sounds
Neurology: AO x 3 and Tremors (negative)
Skin: Warm and Dry
General: Respiratory Distress (negative), Comfortable, Pain (negative), Fever (negative) and Chills (negative)
Assessment
-
Assessment: 83-year-old male with a past medical history of recurrent metastatic prostate cancer on hormone therapy, ILD, mild restrictive lung disease, lung nodules, history of asbestos exposure, insomnia, history of rheumatic fever, history of
skin cancer (BCC s/p Mohs in 1999), CAD s/p THOMAS x2 to LAD (06/12/2024), chronic HFpEF, hyperlipidemia and hypertension who presents with rectal bleeding that started 20 minutes prior to arrival. He reports that he is being treated for his prostate
cancer with immunotherapy. Had a normal bowel movement prior to dinner yesterday. Patient currently on aspirin and Plavix due to recent cardiac stent placed in May 2024 to the LAD. In the ER he was afebrile to 97.5 �F, pulse rate 98,
breathing at 14 breaths/min, BP 121/67, and saturating 96% on room air. Initial Hb was 13 g/dL, WBC 13.4, platelet count 319, INR 0.97, PTT: 28.5 seconds, BUN: 30, creatinine 0.8, glucose 191, lactate 2.6, and ALP: 152. Admission CXR showed no
acute cardiopulmonary disease. He was admitted to the Telemetry for further care and due to worsening rectal bleeding seen this morning, Lithograph Designer/pulmonary service is consulted and patient being transferred to the IMU from the floor.
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
rheumatic fever, history of skin cancer (BCC s/p Mohs in 1999), chronic HFpEF, hyperlipidemia and hypertension
Impression:
#Painless lower GI bleed/BRBPR - DDx is radiation proctitis vs diverticulosis vs angiodysplasia vs metastasis
#Acute blood loss anemia
#Lactic acidosis
#Recurrent metastatic prostate cancer on hormone therapy with mets to the bone recently started on chemotherapy + radiation treatment
#CAD s/p THOMAS x 2 to LAD in June 19 on DAPT (ASA + plavix)
#Widespread sclerotic bony metastatic disease due to prostate carcinoma
#Chronic HFpEF (LVEDP: 25mmHg during C from 06/12/2024)
#ILD with mild bibasilar reticular/GGO changes
#Mild restrictive lung disease with T%, VC: 81% predicted with moderate gas exchange capacity defect (DLco: 40%, DLco/VA: 59%) via PFTs from 07/25/2023)
Plan:
- Patient presents with rectal bleeding on dual antiplatelet therapy due to 2 drug-eluting stents to his distal to apical LAD placed in May 2024 here at
- Patient underwent LHC on 06/12/2024 showing 3 serial 70-80% stenoses in the distal to apical LAD which underwent PCI with 2 overlapping THOMAS with excellent angiographic result
- He has remained on aspirin + Plavix since that time
- If bleeding becomes life threatening, would administer dDAVP and consider platelet transfusion; need to weigh benefit of reduced bleeding/acute anemia/hypotension to in-stent thrombosis/[place]
- His most recent recent echo from 06/11/2024 shows preserved biventricular function with no significant valvular heart disease and normal diastolic function with moderate concentric LVH.
- Given acute lower GI bleed, antiplatelet medications and anticoagulants need to be held despite the risk of in-stent thrombosis
- Would consult cardiology given that we are now holding DAPT as this is a high risk situation; if patient can be resumed on at least aspirin in the next 24 hours then may need to consider cangrelor so that we have better control if bleeding were
to worsen
- Maintain large bore IV x2
- PPI 40mg IV BID
- Got 1 U PRBC transfused and is about to get 2nd unit now
- Serial H/H and transfuse to keep Hb>8g/dL, platelets >50k, goal INR<1.8
- GI consulted - defer endoscopy to them (keep NPO for now)
- Monitor hemodynamics, keeping MAP>65 and hold any BP medications for now
- He does have mild diverticulosis seen on CT abdomen/pelvis from March 2024
- Given that he just completed radiation treatment about 1 week ago, it is possible that he has radiation proctitis
- Maintain SpO2 >90-94% using supplemental O2 if needed
- prn nebulized bronchodilators - not currently bronchospastic
- Incentive spirometer encouraged 10x per hour for at least 4 hrs a day
- Replete electrolytes with K>4, Mg>2
- Maintain euglycemia with goal BG 140-180
- DVT ppx: SCDs for now
Transfer to IMU; Lithograph Designer/Pulmonary services will continue to follow along. Ultimately after discharge, patient should follow-up with our office and with Dr. Rowley as last visit was: 02/09/2024.
Total time spent today was 76 minutes for this encounter. Time includes reviewing laboratory test/imaging results, reviewing pertinent medical records, obtaining and reviewing medical history, performing an appropriate exam, ordering medications,
tests and procedures. Time also includes documentation of this encounter, coordinating patient care and communicating with other healthcare professionals. Total time does not include separately billed tests performed on this date of service.
Data:
CXR 08/10/2024:
No active cardiopulmonary disease.
Stable sclerotic osseous metastasis
CTA Chest 07/29/2024:
No evidence of central pulmonary embolism.
Bibasilar subsegmental atelectasis.
Known widespread sclerotic bony metastatic disease again seen correlating with the history of prostate carcinoma.
Left Heart Catheterization 06/12/2024:
1. Successful percutaneous coronary artery intervention of 3 serial distal to apical LAD stenosis of 70 to 80% with 2 overlapping 2.25 x 22 mm and 2.5 x 26 mm Medtronic Prosper drug-eluting stents, postdilated with 2.5 x 20 mm NC balloon at 16 torin
distally and 20 torin proximally with an excellent angiographic result.
2. IFR negative 60% mid LAD stenosis (iFR of 0.93).
3. IFR negative 50 to 60% mid OM 1 stenosis (iFR of 0.98).
4. Significantly elevated LVEDP at 25 mmHg.
--- NOTE | 2024-08-19 11:30 | PTCARENOTE ---
Received patient this am AAOx3. 08:10 Pt had a large bloody bowel movement with large amount of clots. Dr. Martin made aware an evaluated patient. HRR 116, B/P-126/76, Resp-20. O2 saturation 99 % on RA. Hgb 11.0. Calcium 7.6. Calcium rider given as
ordered. Pt NPO IVF infusing without difficulty. IV Protonix started on patient. Report called an patient transferred to IMU.
--- NOTE | 2024-08-19 12:01 | PTCARENOTE ---
Rec'd pt from [address] [place]. Pt continues to have rectal bleeding with clots. first unit PRBC infusing. vital signs stable.
--- NOTE | 2024-08-19 12:49 | CM ---
Patient seen at bedside.
IA completed
Dx: Rectal bleeding
transferred from to IMU today
PMH: recurrent metastatic prostate ca on hormone therapy, ILD, mild restrictive lung disease, asbestos exposure, insomnia, rheumatic fever, skin ca, CAD
Lives with his significant other in 1 story home at [facility]
PLOF: ambulates with walker
DME: Walker, chair rails, raised toilet seat
Patient current with [facility] - Referral entered in [facility]
Had been at [facility] in past
Denies insecurities
PCP: Mauro Cervantes
Pharmacy: [facility]
PLAN: CM to follow hospital MISHEL ludwig
[2024-08-19] MEDS: LIPITOR 80 MG PO (17:24)
[2024-08-19 18:39] LABS: Hemoglobin 10.3 g/dL (13.0-18.0)
[2024-08-20] VITALS (16 sets, daily range): BP systolic 112–156; BP diastolic 46–79; PULSE 79; O2SAT 97–98; BMI 29.9
[2024-08-20] MEDS: NSS 1000 IV (03:04)
[2024-08-20 03:43] LABS: Hematocrit 31.5 % (39.0-52.0); Hemoglobin 10.4 g/dL (13.0-18.0); Mean Corpuscular Volume 84.9 fL (80.0-94.0); Mean Platelet Volume 9.7 fL (7.4-10.4); Platelet Count 232 10^3/uL (130-400); Red Blood Cell Count 3.71 10^6/uL (4.70-6.10); Red Cell Dist. Width 17.3 % (11.5-14.5); White Blood Cell Count 11.2 10^3/uL (4.8-10.8)
[2024-08-20 04:04] LABS: Blood Urea Nitrogen 19 mg/dl (9-20); Calcium 7.4 mg/dl (8.4-10.2); Carbon Dioxide 21 mmol/L (22-30); Chloride 110 mmol/L (98-107); Estimated Creatinine Clearance 110 ml/min; Glucose 118 mg/dl (70-99); Phosphorus 2.2 mg/dl (2.5-4.5); Potassium 4.2 mmol/L (3.5-5.1); Sodium 135 mmol/L (135-145); eGFR > 60.00
--- NOTE | 2024-08-20 05:50 | PTCARENOTE ---
Received pt at change of shift. No BMs this shift. Straight cath pt x2; tolerated well; clear yellow urine. VSS at this time. Assessment as documented. Pt offers no complaints at this time. Resting in bed with call guzman in reach.
[2024-08-20] MEDS: DELTASONE 5 MG PO ×2 (07:55→19:32)
[2024-08-20] MEDS: MS CONTIN (EXTENDED RELEASE) 30 MG PO ×2 (07:56→19:32)
[2024-08-20] MEDS: ZOLOFT 50 MG PO (07:56)
[2024-08-20] MEDS: TOPROL XL 25 MG PO ×2 (07:56→19:32)
[2024-08-20] MEDS: PROTONIX IV 40 MG IV ×2 (07:57→19:31)
[2024-08-20] MEDS: NSS (PRESERVATIVE FREE) 10 ML IV ×2 (07:58→19:31)
--- NOTE | 2024-08-20 08:32 | VNURNOTE ---
Chart reviewed. Patient is current with [facility] nursing, OT, PT. Will continue to follow hospital course and DC plans.
--- NOTE | 2024-08-20 09:01 | W.PN.HOSP.TC ---
Today's Communication/Plan
-
PPI. Monitor hemoglobin. Cardio consult
Assessment / Plan
Assessment / Plan
Physical Exam
General: no acute distress appears comfortable at this time, no pallor, cyanosis, or jaundice
HEENT: Moist mucous membranes and PERRLA
Respiratory: Clear to auscultation b/l no wheezes rubs crackles
Cardiac: S1/S2 sinus tachy no murmur
GI: Soft, Non Tender, Non Distended and Normal Bowel Sounds
Musculoskeletal: No Clubbing, No Cyanosis and No Edema
Neuro: AO x 3 conversant coherent
Psych: calm
A/P:
Acute lower GI bleed:
Diverticular versus radiation proctitis versus angiectasis per GI
On aspirin
Plavix on hold
Stop IV fluid
On full liquid diet
On PPI twice daily
PT OT eval
CAD with relatively recent stents:
SLATE CUTTER dual antiplatelet therapy-currently Plavix on hold
Cardiology consult to help decision in terms of antiplatelets
Acute blood loss anemia:
Monitor hemoglobin
Blood transfusion as needed
Interstitial lung disease:
Appreciate pulmonary input
Chronic HFpEF:
Monitor volume status
Metastatic prostate cancer:
On chemoradiation
Likely needs to hold next treatment this week and will discuss with oncology as outpatient
DVT prophylaxis:
SCDs
CODE STATUS:
Full code
Total time spent on today's encounter was 52 minutes which included time spent in counseling the patient/family regarding diagnosis and treatment plan as listed above, goals of care, and symptom management. Case was discussed with nursing staff,
specialists, and care coordinators/case management. All labs and imaging personally reviewed by me. Remainder the time spent in detailed review of previous records, lab data, imaging, and other medical provider documentation.
Anticipated Discharge: 24 - 48 hours
Subjective/Interval History
-
Date of Service: August 20, 2024
Patient denies further rectal bleeding. He has some shortness of breath but he states his baseline. No chest pain.
Objective Data
-
Labs:
Laboratory Results
08/20/24
03:12
WBC 11.2 H
Hgb 10.4 L
Hct 31.5 L
Plt Count 232
Sodium 135
Potassium 4.2
Chloride 110 H
Carbon Dioxide 21 L
BUN 19
Creatinine 0.5 L
Glucose 118 H
Calcium 7.4 L
Vital Signs:
Vital Signs
Temp Pulse Resp BP Pulse Ox
97.6 F 86 11 112/46 98
08/20/24 07:37 08/20/24 07:56 08/20/24 04:00 08/20/24 07:56 08/20/24 04:00
I&O
08/19/24 08/20/24 08/21/24
06:59 06:59 06:59
Intake Total 240 / 240 3080 / 3080
Output Total 825 / 825 2100 / 2100
Balance -585 / -585 980 / 980
--- NOTE | 2024-08-20 09:20 | PTCARENOTE ---
Pt AAOx3 no needs at this time. Pt on RA lungs diminished ,trace BLE edema,pale Nss thru sub q port. Pt remains NPO.
--- NOTE | 2024-08-20 09:28 | W.PN.GI.CBS2 ---
Today's Communication / Plan
-
Continue ASA given recent stents
Can resume Plavix tomorrow if no further bleeding
[facility] cardiology consult also
Full liquids and if no further bleeding can adv to LRD in AM
Assessment / Plan
-
1. Painless rectal bleeding multiple episodes on ASA and Plavix and also was on chronic prednisone therapy. Most likely etiology is probably diverticulosis versus radiation proctitis versus angioectasias less likely upper GI bleed is
hemodynamically stable and his BUN was only minimally elevated. CTA neg 08/19. Agree with Protonix twice daily. Plavix has been on hold since admission and aspirin was continued (was held after his dose yesterday but I resumed it again today). He
has not had any further bleeding since yesterday afternoon. may not be able to hold his Plavix too long given his recent stents 05/2024.
2. Recurrent metastatic prostate CA with mets to the bone sees Dr. Patterson and had recently been started on chemo and also received radiation treatment
3. History of CAD status post stent to LAD in May 2024 was on aspirin and Plavix prior to admission
Subjective
Subjective
Date of Service: August 20, 2024
CTA was for any active bleeding yesterday. He has not had any further episodes of rectal bleeding since 12 PM yesterday. He did receive 2 units of packed red blood cells 08/19 also and was transferred for higher level of care to IMU.
Objective
Data Reviewed
Laboratory Data:
Laboratory Results
08/20/24 03:12
08/20/24 03:12
Laboratory Results
PT 13.2 Sec (11.4-14.6) 08/18/24 19:43
INR 0.97 08/18/24 19:43
APTT 28.5 Sec (23.4-35.0) 08/18/24 19:43
Phosphorus 2.2 mg/dl (2.5-4.5) L 08/20/24 03:12
Magnesium 2.0 mg/dl (1.6-2.3) 08/20/24 03:12
Total Bilirubin 0.8 mg/dl (0.2-1.3) 08/18/24 19:43
AST 33 U/L (17-59) 08/18/24 19:43
ALT 25 U/L (0-50) 08/18/24 19:43
Alkaline Phosphatase 152 U/L (38-126) H 08/18/24 19:43
Vital Signs and I&O:
Vital Signs
Temp Pulse Resp BP Pulse Ox
97.6 F 85 24 156/74 98
08/20/24 07:37 08/20/24 08:00 08/20/24 08:00 08/20/24 08:00 08/20/24 08:00
I&O
08/19/24 08/20/24 08/21/24
06:59 06:59 06:59
Intake Total 240 / 240 3080 / 3080
Output Total 825 / 825 2100 / 2100
Balance -585 / -585 980 / 980
08/19/23 CTA
IMPRESSION: No evidence of active GI bleed.
Hepatic fatty infiltration. Stable
Hepatic and splenic cysts. Stable
Nonobstructing bilateral renal stones. Stable
Too small to characterize hypodense renal lesions likely benign cysts. Mildly complex left renal cyst. Likely a benign Bosniak type II cyst.. Stable
Moderate fecal material throughout the colon. Stable
Mild diverticulosis. Stable
Severe blastic osseous metastatic disease. Grossly stable. New bony destruction and a soft tissue component of L2 vertebral body as described above.
Physical Exam
Physical Exam
Cardiology: Normal Sinus Rhythm
Pulmonary: Clear
GI: Soft, Non Distended, Non Tender and Normal Bowel Sounds
--- NOTE | 2024-08-20 10:01 | W.PN.PUL3 ---
Today's Communication / Plan
-
Outpatient pulmonary follow-up
Monitor for recurrent GI bleed
Follow hemoglobin
Antiplatelets per GI
Sign off
Assessment
-
Assessment: 83-year-old male with a past medical history of recurrent metastatic prostate cancer on hormone therapy, ILD, mild restrictive lung disease, lung nodules, history of asbestos exposure, insomnia, history of rheumatic fever, history of
skin cancer (BCC s/p Mohs in 1999), CAD s/p THOMAS x2 to LAD (06/12/2024), chronic HFpEF, hyperlipidemia and hypertension who presents with rectal bleeding that started 20 minutes prior to arrival. He reports that he is being treated for his prostate
cancer with immunotherapy. Had a normal bowel movement prior to dinner yesterday. Patient currently on aspirin and Plavix due to recent cardiac stent placed in May 2024 to the LAD. In the ER he was afebrile to 97.5 �F, pulse rate 98,
breathing at 14 breaths/min, BP 121/67, and saturating 96% on room air. Initial Hb was 13 g/dL, WBC 13.4, platelet count 319, INR 0.97, PTT: 28.5 seconds, BUN: 30, creatinine 0.8, glucose 191, lactate 2.6, and ALP: 152. Admission CXR showed no
acute cardiopulmonary disease. He was admitted to the Telemetry for further care and due to worsening rectal bleeding seen this morning, Marketing Systems Analyst/pulmonary service is consulted and patient being transferred to the IMU from the floor.
Chronic conditions [employer]: Metastatic prostate cancer on lupron and xtandi, anemia, right inguinal hernia, CAD s/p THOMAS x 2 to LAD (06/12/2024), ILD, mild restrictive lung disease, lung nodules, history of asbestos exposure, insomnia, history of
rheumatic fever, history of skin cancer (BCC s/p Mohs in 1999), chronic HFpEF, hyperlipidemia and hypertension
Transferred to IMU 08/19/2024-pulmonary following for history of mild ILD.
Impression:
#ILD with mild bibasilar reticular/GGO changes
#Mild restrictive lung disease with T%, VC: 81% predicted with moderate gas exchange capacity defect (DLco: 40%, DLco/VA: 59%) via PFTs from 07/25/2023)
#Painless lower GI bleed/BRBPR - DDx is radiation proctitis vs diverticulosis vs angiodysplasia vs metastasis
#Acute blood loss anemia
#Lactic acidosis
#Recurrent metastatic prostate cancer on hormone therapy with mets to the bone recently started on chemotherapy + radiation treatment
#CAD s/p THOMAS x 2 to LAD in June 19 on DAPT (ASA + plavix)
#Widespread sclerotic bony metastatic disease due to prostate carcinoma
#Chronic HFpEF (LVEDP: 25mmHg during LHC from 06/12/2024)
Plan:
-
Denies any pulmonary complaints.
Currently on room air.
Patient has history of mild undifferentiated interstitial lung disease that has been stable for a few years-possibly postinflammatory.
Being followed by Dr. Rowley for pulmonary nodules as well.
He is due for a repeat CT chest to follow-up on lung nodules on 01/2025.
Based on CT abdomen pelvis lung cuts from this admission interstitial changes appear stable.
He was encouraged to follow-up for updated pulmonary function testing as well.
-
Lower GI bleed:
Hemoglobin stable this morning
Hemodynamically stable
No further bleeding since yesterday afternoon.
- Patient presents with rectal bleeding on dual antiplatelet therapy due to 2 drug-eluting stents to his distal to apical LAD placed in May 2024 here at
- Patient underwent LHC on 06/12/2024 showing 3 serial 70-80% stenoses in the distal to apical LAD which underwent PCI with 2 overlapping THOMAS with excellent angiographic result
- He has remained on aspirin + Plavix since that time
- If bleeding becomes life threatening, would administer dDAVP and consider platelet transfusion; need to weigh benefit of reduced bleeding/acute anemia/hypotension to in-stent thrombosis/WV
- His most recent recent echo from 06/11/2024 shows preserved biventricular function with no significant valvular heart disease and normal diastolic function with moderate concentric LVH.
-Aspirin to continue. Plavix to be restarted tomorrow per GI.
Diet has been advanced to full liquids.
*-Continue to follow GI recommendations.
-Consider cardiology evaluation.
- DVT ppx: SCDs for now
-
No additional recommendation from the pulmonary perspective
Follow-up with Dr. Rowley in about 4 to 6 weeks with pulmonary function testing.
Sign off
Subjective Data
-
Date of Service:
Date of Service: August 20, 2024
Chief Complaint: Pulmonary Follow Up (Interstitial lung disease-)
Subjective:
Today he denies any respiratory symptoms
No further bleeding
Denies shortness of breath at rest
Denies increased coughing
Review of Systems
General: Fever (n)
Cardiopulmonary: Dyspnea (none at rest)
GI: Abdominal Pain (n), Nausea (n) and Vomiting (n)
Objective Data
Data Reviewed
Vital Signs / I&O / Oxygen:
Vital Signs
Temp Pulse Resp BP Pulse Ox
97.6 F 85 24 156/74 98
08/20/24 07:37 08/20/24 08:00 08/20/24 08:00 08/20/24 08:00 08/20/24 08:00
Intake and Output
08/19/24 08/20/24 08/21/24
06:59 06:59 06:59
Intake Total 240 / 240 3080 / 3080
Output Total 825 / 825 2100 / 2100
Balance -585 / -585 980 / 980
SaO2 98
Physical Exam
General: Comfortable
HEENT: Normocephalic
Cardiovascular: S1-S2 and Regular Rhythm
Respiratory: Clear and Non-Labored Respirations
GI: Soft and Non Distended
Neurology: Awake, Alert and No Motor Deficits
Skin: Warm
Labs/Micro/Reports
Lab Data
08/20/24 03:12
08/20/24 03:12
[2024-08-20] MEDS: NSS IV (12:13)
--- NOTE | 2024-08-20 15:10 | CON.CAR ---
Addendum entered and electronically signed by Andrews Vasquez MD 08/20/24 15:49:
83-year-old man with metastatic prostate cancer to bone, PSA 120 with chest pain related to thoracic mets, who nonetheless had a positive troponin when admitted in May and underwent 2.25 and 2.5 Medtronic Sulphur stent implantation in the distal
to apical LAD. He was discharged on aspirin and Plavix. He has had 2 ER visits, had a port placed and has received XRT for thoracic spine lesions. Readmitted on August 18 with rectal bleeding onset August 18 with hematochezia. He has
received 2 units of blood. Has received XRT to prostate. Has received Xtandi as well
Current meds: Atorvastatin 80 mg a day, aspirin 81 mg a day, metoprolol ER 25 mg twice daily, morphine extended release 30 every 12, prednisone 5 mg twice daily, sertraline 50 mg a day, pantoprazole 40 IV twice daily.
156/74, pulse 85, resp rate 20, afebrile, no acute distress at the moment, keeps eyes closed while talking for the most part, 156/74, pulse 85, respiratory 24, afebrile, intake and output 3.1/ 2.1 L, head neck exam unremarkable, lungs are clear,
regular rate and rhythm, abdomen benign extremities: No edema, pulses intact
ECG sinus rhythm, poor R wave progression, RSR prime, left axis deviation
White count 11.2, hemoglobin 10.4, BUN and creatinine 19 and 0.5, hemoglobin had been 13.0 on the
Echo EF: 60-65%
Impression:
Hematochezia
LAD PCI, 2.25 and 2.5 mm Sulphur stent to distal/apical LAD May 2024
Metastatic prostate cancer on Xtandi, status post XRT to thoracic spine and prostate
Hypercholesterolemia
Borderline DM2
Plan:
His hemoglobin is relatively stable now on aspirin 81 mg a day. At admission he had been on aspirin and Plavix
At present, it seems that he will not require GI procedures, will await their final decision.
Restart clopidogrel alone when okay from GI standpoint. In the early days of bare-metal stents, P2 Y12 inhibitors were given only for 2 weeks and stent thrombosis was still infrequent.
We can decide whether or not to restart clopidogrel over the next 24 hours.
Alternatively, stent thrombosis would be low with Plavix alone. I would favor this. We can discuss with interventional cardiology.
Currently furosemide is on hold, will likely need to restart once hemodynamically stable. proBNP is pending.
Restart amlodipine.
Original Note:
Consultation
Consultation Request
Date/Time Consultation Requested: 08/20/24
Date/Time Consultation Performed: 08/20/24
Requesting Provider: Dr. Toledo
Performing Provider: Dr. BEATRIZ Vasquez
Reason for Consultation: GIB on DAPT
Medical History
-
History of Present Illness:
Patient came to ER on Tuesday with rectal bleeding and cardiology is consulted for recent PCI and patient on DAPT. Patient was seen admitted to 06/11/24 until 06/19/24 with chest pain and had LAD PCI as outlined above. Despite PCI that
admission the patient continued with chest pain and was seen by oncology for metastatic prostate cancer with bony metastasis pain. Following D/C the patient then completed 5 sessions of radiation prior to beginning chemotherapy. Patient had overall
been feeling fairly well until he started with BRBPR on 08/18/2024. Hgb 13 on admission down a bit to 10.4 today. Patient was taking aspirin and Plavix prior to admission, but Plavix is now on hold. Patient has remained on aspirin throughout this
admission Gastroenterology notes reviewed and they feel the patient can likely restart Plavix tomorrow if no further bleeding as they advance his diet. They feel that this could be diverticulosis or radiation proctitis. Patient denies any CP or
SOB.
PMH:
CAD
s/p 2.25 mm and 2.5 mm Medtronic Sulphur THOMAS to distal to apical LAD 06/12/24
EF 37% by Lexiscan mibi 05/21/24, but 60-65% by echo 06/11/24
Metastatic prostate cancer
Hyperlipidemia, LDL 195
Hyperglycemia, HgbA1c 6.5% and new diagnosis of DM 2
Past Medical History
Past Medical History: Other (in HPI)
Past Surgical History: Cardiac (LAD PCI 06/12/24), Orthopedic and Urological (prostatectomy)
Social History
Tobacco: Non-Smoker
Alcohol: None
Drug: None
Personal: Partner
Living: With Family
Family History
Family History: Cancer
Allergies / Home Medications
Allergy/AdvReac Type Severity Reaction Status Date / Time
tetanus toxoid, adsorbed Allergy Hives Verified 08/10/24 19:45
�Medication �Instructions �Recorded �Confirmed �Type
furosemide 20 mg tablet 40 mg PO DAILY Fluid 04/26/23 08/18/24 History
Retention/Swelling
aspirin 81 mg chewable tablet 81 mg PO DAILY #30 tabs 06/19/24 08/18/24 Rx
atorvastatin 80 mg tablet 80 mg PO QPM #30 tabs 06/19/24 08/18/24 Rx
clopidogrel 75 mg tablet 75 mg PO DAILY #90 tabs 06/19/24 08/18/24 Rx
hydromorphone 2 mg tablet 2 mg PO Q3HPRN PRN Breakthrough 06/19/24 08/18/24 Rx
pain #30 tabs
metoprolol succinate 25 mg 25 mg PO BID #60 tabs 06/19/24 08/18/24 Rx
tablet,extended release 24 hr
morphine 15 mg tablet,extended 30 mg (2 x 15 mg) PO Q12 #60 tabs 06/19/24 08/18/24 Rx
release
pantoprazole 40 mg tablet,delayed 40 mg PO DAILY #30 tabs 06/19/24 08/18/24 Rx
release
polyethylene glycol 3350 17 gram 17 g PO DAILY #30 ea 06/19/24 08/18/24 Rx
oral powder packet
sennosides 8.6 mg-docusate sodium 2 tab PO BID #60 tabs 06/19/24 08/18/24 Rx
50 mg tablet
acetaminophen 500 mg tablet 1,000 mg PO TIDPRN PRN mild pain 07/29/24 08/18/24 History
(Tylenol Extra Strength)
amlodipine 2.5 mg tablet (Norvasc) 2.5 mg PO DAILY Blood Pressure 07/29/24 08/18/24 History
therapeutic multivitamin 1 tab PO DAILY Supplement 07/29/24 08/18/24 History
ondansetron HCl 8 mg tablet 8 mg PO Q8H PRN nausea 08/18/24 08/18/24 History
prednisone 10 mg tablet 5 mg PO BID INFLAMMATION 08/18/24 08/18/24 History
prochlorperazine maleate 10 mg 10 mg PO Q6H PRN nausea 08/18/24 08/18/24 History
tablet
sertraline 50 mg PO DAILY Mental 08/18/24 08/18/24 History
Health/Anxiety
Review of Systems
-
History Source: Patient
All other systems: Negative unless noted
Physical Exam
Vital Signs
Temp Pulse Resp BP Pulse Ox
97.5 F 88 18 140/79 96
08/20/24 11:16 08/20/24 14:00 08/20/24 14:00 08/20/24 14:00 08/20/24 12:00
GEN: No distress, awake, alert, oriented x3
HEENT: supple, anicteric, mmm
LUNGS: CTA b/l, no wheezes/rales
CV: Reg, S1/S2, no murmur
EXT: No clubbing, cyanosis, or edema
NEURO: Gross non-focal
SKIN: Warm, dry, no rash
Lab Results
08/20/24 03:12
08/20/24 03:12
Impression / Plan
-
PCP: Dr. Cervantes
Cardiology: Dr. Carter
Impression:
Admitted with rectal bleeding 08/18/24
CAD
s/p 2.25 mm and 2.5 mm Medtronic Prosper THOMAS to distal to apical LAD 06/12/24
EF 37% by Lexiscan mibi 05/21/24, but 60-65% by echo 06/11/24
Metastatic prostate cancer
Hyperlipidemia, LDL 195
Hyperglycemia, HgbA1c 6.5% and new diagnosis of DM 2
Lexiscan nuclear stress test 05/21/2024: Myocardial perfusion imaging without definite evidence of scan ischemia or scar, inferior soft tissue attenuation artifact present, EF 39%
Echo 04/01/23: Normal BiV size and function without wall motion abnormality, mild concentric LVH, no significant valve disease
Echo 06/11/24: EF 60 to 65%, no WMA, no MR, no /AR
Plan:
-Patient came to ER on Tuesday with rectal bleeding and cardiology is consulted for recent PCI and patient on DAPT. Patient was seen admitted to 06/11/24 until 06/19/24 with chest pain and had LAD PCI as outlined above. Despite PCI that
admission the patient continued with chest pain and was seen by oncology for metastatic prostate cancer with bony metastasis pain. Following D/C the patient then completed 5 sessions of radiation prior to beginning chemotherapy. Patient had overall
been feeling fairly well until he started with BRBPR on 08/18/2024. Hgb 13 on admission down a bit to 10.4 today. Patient was taking aspirin and Plavix prior to admission, but Plavix is now on hold. Patient has remained on aspirin throughout this
admission Gastroenterology notes reviewed and they feel the patient can likely restart Plavix tomorrow if no further bleeding as they advance his diet. They feel that this could be diverticulosis or radiation proctitis. Patient denies any CP or
SOB.
-ECG from admission on 08/18/2023 reviewed by me shows NSR with IC RBBB and no acute ischemic changes.
-Plavix on hold since admission. Aspirin has been continued since admission. GI notes reviewed and plan is to resume Plavix in AM if no further bleeding while diet is being advanced.
-Patient had THOMAS x2 to LAD 06/12/24. Will review with interventional cardiology in the AM and see if a single antiplatelet regimen is acceptable at just over 2 months post-PCI.
-Echo 06/11/24 with preserved EF and no significant valve disease as noted above.
-Outpatient dose of Toprol XL 25mg BID has been continued
-Outpatient dose of amlodipine 2.5 mg daily is on hold
-Outpatient dose of atorvastatin 80 mg daily has been continued
-Patient was taking Lasix 40 mg daily prior to admission and this is now on hold weight is being checked using bed scale. Weight is up 2 pounds from last admission. Check pro-BNP.
[2024-08-20] MEDS: NORVASC 2.5 MG PO (15:58)
[2024-08-20 16:41] LABS: NT-proBNP 493 pg/ml
--- NOTE | 2024-08-20 16:53 | CM ---
Addendum entered by Jo Ann Paris RN 08/20/24 17:24:
Plan home with resumption of [facility] with family support.
Original Note:
Patient with Hx Metastatic prostate cancer on chemo/radiation with Dx Acute lower GI bleed, anemia s/p transfusions. Room air. Full liquids. Receiving MS Contin.
Patient was setup to resume service with [facility] at discharge.
Spoke with Kaylee, patient's SO; she says that Brandyn will not want to go to rehab again and did not think he got much rehab at [facility] - only about 15 mins/day, which she feels he can get at home through the . The patient has a lift chair and grab
bars to help with his mobility. She assists him with bathing, but cannot lift him and she is hoping he is not so weak that he will fall at home. She is already having back pain from assisting him. He has 3 children, and his son Brandyn and DIL Sean
assist the most, but they both work and Sean is caring for her own family member. Discussed cost of hiring private pay caregiver vs through the community. She is unsure patient can afford to hire a caregiver- declined Caregiver list. Patient
will be resuming his chemo treatment at home. Kaylee was crying during the conversation about being fatigued as his caregiver- she signed up for a support group but hasn't attended first session.
Plan home with resumption of [facility].
[2024-08-20] MEDS: LIPITOR 80 MG PO (17:21)
--- NOTE | 2024-08-20 23:00 | PTCARENOTE ---
Pt is aaox3. NSR on monitor. 97% on RA. VS and assessment as documented. DINAH medications administered. Hygiene including CHG wipes completed. Pt resting in bed with call guzman in reach.
[2024-08-21] VITALS (15 sets, daily range): BP systolic 104–182; BP diastolic 58–103; PULSE 80–113; O2SAT 97
[2024-08-21 06:11] LABS: Hematocrit 30.6 % (39.0-52.0); Mean Corp Hgb Conc. 32.7 g/dL (33.0-37.0); Mean Corpuscular Hgb 27.7 pg (27.0-31.0); Mean Corpuscular Volume 84.8 fL (80.0-94.0); Platelet Count 237 10^3/uL (130-400); Red Blood Cell Count 3.61 10^6/uL (4.70-6.10); Red Cell Dist. Width 17.6 % (11.5-14.5); White Blood Cell Count 10.9 10^3/uL (4.8-10.8)
[2024-08-21 06:12] LABS: Blood Urea Nitrogen 14 mg/dl (9-20); Calcium 7.5 mg/dl (8.4-10.2); Carbon Dioxide 21 mmol/L (22-30); Chloride 108 mmol/L (98-107); Estimated Creatinine Clearance 110 ml/min; Glucose 114 mg/dl (70-99); Sodium 135 mmol/L (135-145); eGFR > 60.00
[2024-08-21] MEDS: DELTASONE 5 MG PO ×2 (08:00→19:56)
[2024-08-21] MEDS: ZOLOFT 50 MG PO (08:01)
[2024-08-21] MEDS: LOW STRENGTH ASPIRIN 81 MG PO (08:01)
[2024-08-21] MEDS: MS CONTIN (EXTENDED RELEASE) 30 MG PO ×2 (08:01→19:56)
[2024-08-21] MEDS: TOPROL XL 25 MG PO ×2 (08:03→19:55)
[2024-08-21] MEDS: NORVASC 2.5 MG PO (08:04)
[2024-08-21] MEDS: PROTONIX IV 40 MG IV ×2 (08:04→19:56)
[2024-08-21] MEDS: NSS (PRESERVATIVE FREE) 10 ML IV ×2 (08:04→19:56)
--- NOTE | 2024-08-21 08:53 | W.PN.HOSP.TC ---
Addendum entered and electronically signed by Fahad Toledo MD 08/21/24 15:20:
Yes, GI bleeding is related to/associated with/due to/exacerbated by Aspirin and Plavix
Original Note:
Today's Communication/Plan
-
Low residue diet. Monitor hemoglobin. Restart Plavix
Assessment / Plan
Assessment / Plan
Physical Exam
General: no acute distress appears comfortable at this time, no pallor, cyanosis, or jaundice
HEENT: Moist mucous membranes and PERRLA
Respiratory: Clear to auscultation b/l no wheezes rubs crackles
Cardiac: S1/S2 sinus tachy no murmur
GI: Soft, Non Tender, Non Distended and Normal Bowel Sounds
Musculoskeletal: No Clubbing, No Cyanosis and No Edema
Neuro: AO x 3 conversant coherent
Psych: calm
A/P:
Acute lower GI bleed:
Diverticular versus radiation proctitis versus angiectasis per GI
Restart Plavix today
Stop aspirin
Off IV fluid
GI advance to low residue diet today
On PPI twice daily
PT OT eval
Plan to discharge either later today or tomorrow
CAD with relatively recent stents:
LATHMAKER dual antiplatelet therapy
Cardiology consult initiated
Moving forward on Plavix only
Acute blood loss anemia:
Monitor hemoglobin
Blood transfusion as needed
Interstitial lung disease:
Appreciate pulmonary input
Chronic HFpEF:
Monitor volume status
Metastatic prostate cancer:
On chemoradiation
Likely needs to hold next treatment this week and will discuss with oncology as outpatient
DVT prophylaxis:
SCDs
CODE STATUS:
Full code
Anticipated Discharge: Within 24 hours
Subjective/Interval History
-
Date of Service: August 21, 2024
Patient feels better today. No further bleeding. Concerned about going home and 'readmission'.
Objective Data
-
Labs:
Laboratory Results
08/21/24
05:08
WBC 10.9 H
Hgb 10.0 L
Hct 30.6 L
Plt Count 237
Sodium 135
Potassium 4.0
Chloride 108 H
Carbon Dioxide 21 L
BUN 14
Creatinine 0.5 L
Glucose 114 H
Calcium 7.5 L
Vital Signs:
Vital Signs
Temp Pulse Resp BP Pulse Ox
98.2 F 84 16 136/80 96
08/21/24 07:45 08/21/24 08:04 08/21/24 06:00 08/21/24 08:04 08/21/24 06:00
I&O
08/20/24 08/21/24 08/22/24
06:59 06:59 06:59
Intake Total 3080 / 3080 480 / 480
Output Total 2099 / 2099 2250 / 2250
Balance 980 / 980 -1770 / -1770
--- NOTE | 2024-08-21 09:54 | W.PN.CARDCBS ---
Today's Communication / Plan
-
Restart furosemide 40 mg daily
Plavix monotherapy 75 mg a day, stop aspirin
Impression / Plan
-
PCP: Dr. Cervantes
Cardiology: Dr. Carter
Impression:
Admitted with rectal bleeding 08/18/24
CAD
s/p 2.25 mm and 2.5 mm Medtronic Prosper THOMAS to distal to apical LAD 06/12/24
EF 37% by Lexiscan mibi 05/21/24, but 60-65% by echo 06/11/24
Metastatic prostate cancer
Hyperlipidemia, LDL 195
Hyperglycemia, HgbA1c 6.5% and new diagnosis of DM 2
Lexiscan nuclear stress test 05/21/2024: Myocardial perfusion imaging without definite evidence of scan ischemia or scar, inferior soft tissue attenuation artifact present, EF 39%
Echo 04/01/23: Normal BiV size and function without wall motion abnormality, mild concentric LVH, no significant valve disease
Echo 06/11/24: EF 60 to 65%, no WMA, no MR, no /AR
Plan:
He appears stable from a cardiac standpoint.
He has been on aspirin monotherapy since admission.
He is now roughly 2 months out from PCI. Will stop aspirin and treat with Plavix monotherapy.
Diet being advanced. If no bleeding, okay for discharge in a.m.
Resume furosemide 40 mg a day
We will arrange for cardiac follow-up.
Progress Note - Manager Housekeeping
Subjective
Date of Service: August 21, 2024:
Current medications: Atorvastatin 80, aspirin 81 mg a day, metoprolol ER 25 twice daily, MS Contin 30 every 12, prednisone 5 a day, sertraline 50 a day, pantoprazole 40 IV twice daily, amlodipine 2.5 mg daily, Plavix on hold
136/80, pulse 84, respirate 20, afebrile, sats 97, head neck exam unremarkable, lungs are clear, cardiac exam notable for regular rate and rhythm, abdomen benign extremities without clubbing cyanosis or edema
Hemoglobin 10, had been 10.4, BUN and creatinine 21 and 0.5, CO2 21, chloride 108, potassium 4.0, proBNP is 493
Objective
Labs:
08/21/24 05:08
08/21/24 05:08
Labs
Hgb 10.0 g/dL (13.0-18.0) L 08/21/24 05:08
Hct 30.6 % (39.0-52.0) L 08/21/24 05:08
Plt Count 237 10^3/uL (130-400) 08/21/24 05:08
PT 13.2 Sec (11.4-14.6) 08/18/24 19:43
INR 0.97 08/18/24 19:43
APTT 28.5 Sec (23.4-35.0) 08/18/24 19:43
Sodium 135 mmol/L (135-145) 08/21/24 05:08
Potassium 4.0 mmol/L (3.5-5.1) 08/21/24 05:08
BUN 14 mg/dl (9-20) 08/21/24 05:08
Creatinine 0.5 mg/dL (0.7-1.3) L 08/21/24 05:08
Glucose 114 mg/dl (70-99) H 08/21/24 05:08
Vital Signs and I&O:
Vital Signs
Temp Pulse Resp BP Pulse Ox
36.8 C 84 20 136/80 97
08/21/24 07:45 08/21/24 08:04 08/21/24 08:01 08/21/24 08:04 08/21/24 08:01
Vital Signs
Temp Pulse Resp BP Pulse Ox
36.8 C 84 20 136/80 97
08/21/24 07:45 08/21/24 08:04 08/21/24 08:01 08/21/24 08:04 08/21/24 08:01
Intake & Output
08/19/24 08/20/24 08/21/24 08/22/24
07:59 07:59 07:59 07:59
Intake Total 240 / 240 3080 / 3080 480 / 480 240 / 240
Output Total 825 / 825 2100 / 2100 2250 / 2250
Balance -585 / -585 980 / 980 -1770 / -1770 240 / 240
Physical Exam
Physical Exam
See above
[2024-08-21] MEDS: PLAVIX 150 MG PO (12:26)
--- NOTE | 2024-08-21 12:30 | W.PN.GI.CBS2 ---
Today's Communication / Plan
-
adv diet to LRD and if no further bleeding okay to DC home later today or in a.m.
Assessment / Plan
-
1. Painless rectal bleeding multiple episodes on ASA and Plavix and also was on chronic prednisone therapy. Most likely etiology is probably diverticulosis versus radiation proctitis versus angioectasias less likely upper GI bleed is
hemodynamically stable and his BUN was only minimally elevated. CTA neg 08/19. can DC protonix. Noted input from cardiology okay to have single agent antiplatelet and is going to continue on Plavix per their recommendation off ASA. He is tatus post
stent placement in May 2024. He has never had a colonoscopy in the past and given his age and comorbidities including recent stent in May will hold for now unless he has recurrent bleeding but cannot completely rule out neoplasm. He says
he will discuss with his oncologist and if he decides to proceed with it will schedule as outpatient unless he has further active bleeding.
2. Recurrent metastatic prostate CA with mets to the bone sees Dr. Patterson and had recently been started on chemo and also received radiation treatment
3. History of CAD status post stent to LAD in May 2024 was on aspirin and Plavix prior to admission
Subjective
Subjective
Date of Service: August 21, 2024
He had 1 bowel movement yesterday evening which was more brown with some blood. No further bleeding since then and is anxious to eat. No abdominal pain
Objective
Data Reviewed
Laboratory Data:
Laboratory Results
08/21/24 05:08
08/21/24 05:08
Laboratory Results
PT 13.2 Sec (11.4-14.6) 08/18/24 19:43
INR 0.97 08/18/24 19:43
APTT 28.5 Sec (23.4-35.0) 08/18/24 19:43
Phosphorus 2.2 mg/dl (2.5-4.5) L 08/20/24 03:12
Magnesium 2.0 mg/dl (1.6-2.3) 08/20/24 03:12
Total Bilirubin 0.8 mg/dl (0.2-1.3) 08/18/24 19:43
AST 33 U/L (17-59) 08/18/24 19:43
ALT 25 U/L (0-50) 08/18/24 19:43
Alkaline Phosphatase 152 U/L (38-126) H 08/18/24 19:43
Vital Signs and I&O:
Vital Signs
Temp Pulse Resp BP Pulse Ox
98.0 F 75 13 123/61 98
08/21/24 11:07 08/21/24 10:00 08/21/24 10:00 08/21/24 10:00 08/21/24 10:14
I&O
08/20/24 08/21/24 08/22/24
06:59 06:59 06:59
Intake Total 3080 / 3080 480 / 480 240 / 240
Output Total 2100 / 2100 2250 / 2250
Balance 980 / 980 -1770 / -1770 240 / 240
Physical Exam
Physical Exam
Cardiology: Normal Sinus Rhythm
Pulmonary: Clear
GI: Soft, Non Distended, Non Tender and Normal Bowel Sounds
--- NOTE | 2024-08-21 12:57 | PN.CDI ---
CDI
- -
CDI:
Physician Documentation Request
Admit Date: 08/19/24 08:33
Dear Doctor Tre,
Patient admitted with GI bleed. Patient's Plavix was held at time of admission.
Please clarify if a relationship exist between these conditions:
Yes, GI bleeding is related to/associated with/due to/exacerbated by Plavix
No,GI bleeding is not related to/associated with/due to/exacerbated by Plavix
Unable to determine
Use of terms such as suspected, likely, concern for, or probable (associated with a specific diagnosis that is being evaluated, monitored, or treated as if it exists) are acceptable and can be coded in the inpatient setting, when documented at the
time of discharge.
Thank you,
Kiki Antunez RN, BSN
CDI Specialist
tiger text
Please use your independent medical judgment in providing your response.
[2024-08-21] MEDS: LIPITOR 80 MG PO (16:48)
--- NOTE | 2024-08-21 17:09 | PTCARENOTE ---
Report given to Toshia GABRIEL for transfer to room 419 bed 1. Patient educated about plan of care. Patient is compliant with plan of care.
--- NOTE | 2024-08-21 17:54 | PTCARENOTE ---
Patient tolerated low residue diet today, no bloody stools. Plavix restarted. Patient is for transfer to room 419. Belongings packed up. Report given to Toshia GABRIEL.
--- NOTE | 2024-08-21 18:15 | PTCARENOTE ---
Received patient at 1815 from IMU. patient ambulated from wheelchair to bed with a steady gait. Call guzman in reach, tele pack placed.
[2024-08-22 03:18] VITALS: BP 167/95
[2024-08-22 05:57] LABS: Hematocrit 31.4 % (39.0-52.0); Hemoglobin 10.5 g/dL (13.0-18.0); Mean Corp Hgb Conc. 33.4 g/dL (33.0-37.0); Mean Corpuscular Hgb 28.5 pg (27.0-31.0); Mean Corpuscular Volume 85.1 fL (80.0-94.0); Mean Platelet Volume 9.6 fL (7.4-10.4); Platelet Count 245 10^3/uL (130-400); Red Blood Cell Count 3.69 10^6/uL (4.70-6.10); Red Cell Dist. Width 17.3 % (11.5-14.5); White Blood Cell Count 12.2 10^3/uL (4.8-10.8)
[2024-08-22 06:26] LABS: Blood Urea Nitrogen 17 mg/dl (9-20); Calcium 7.9 mg/dl (8.4-10.2); Carbon Dioxide 21 mmol/L (22-30); Chloride 106 mmol/L (98-107); Estimated Creatinine Clearance 110 ml/min; Glucose 127 mg/dl (70-99); Potassium 4.2 mmol/L (3.5-5.1); Sodium 133 mmol/L (135-145); eGFR > 60.00
[2024-08-22] MEDS: PROTONIX 40 MG PO ×2 (07:34→19:28)
[2024-08-22] MEDS: PLAVIX 75 MG PO (07:34)
[2024-08-22] MEDS: TOPROL XL 25 MG PO ×2 (07:34→19:28)
[2024-08-22] MEDS: LASIX 40 MG PO (07:34)
[2024-08-22] MEDS: NORVASC 2.5 MG PO (07:34)
[2024-08-22] MEDS: ZOLOFT 50 MG PO (07:34)
[2024-08-22] MEDS: DELTASONE 5 MG PO ×2 (07:34→19:28)
[2024-08-22] MEDS: MS CONTIN (EXTENDED RELEASE) 30 MG PO ×2 (07:38→19:27)
[2024-08-22 07:50] VITALS: BP 134/74
--- NOTE | 2024-08-22 07:53 | W.PN.GI.CBS2 ---
Today's Communication / Plan
-
Ok to NE
Assessment / Plan
-
1. Painless rectal bleeding multiple episodes on ASA and Plavix and also was on chronic prednisone therapy. Most likely etiology is probably diverticulosis versus radiation proctitis versus angioectasias less likely upper GI bleed is
hemodynamically stable and his BUN was only minimally elevated. CTA neg 08/19. can DC protonix. Noted input from cardiology okay to have single agent antiplatelet and is going to continue on Plavix per their recommendation off ASA. He is s/p stent
placement in May 2024. He has never had a colonoscopy in the past and given his age and comorbidities including recent stent in May will hold for now unless he has recurrent bleeding but cannot completely rule out neoplasm. He says he
will discuss with his oncologist and if he decides to proceed with it will schedule as outpatient unless he has further active bleeding.
2. Recurrent metastatic prostate CA with mets to the bone sees Dr. Patterson and had recently been started on chemo and also received radiation treatment
3. History of CAD status post stent to LAD in May 2024 was on aspirin and Plavix prior to admission
Okay to NE home from GI perspective will sign off and will be available as needed
Subjective
Subjective
Date of Service: August 22, 2024
No bowel movement yesterday no further bleeding since Tuesday, hemoglobin remained stable, tolerated diet yesterday. No abdominal pain no nausea or vomiting.
Objective
Data Reviewed
Laboratory Data:
Laboratory Results
08/22/24 05:36
08/22/24 05:36
Laboratory Results
PT 13.2 Sec (11.4-14.6) 08/18/24 19:43
INR 0.97 08/18/24 19:43
APTT 28.5 Sec (23.4-35.0) 08/18/24 19:43
Phosphorus 2.2 mg/dl (2.5-4.5) L 08/20/24 03:12
Magnesium 2.0 mg/dl (1.6-2.3) 08/20/24 03:12
Total Bilirubin 0.8 mg/dl (0.2-1.3) 08/18/24 19:43
AST 33 U/L (17-59) 08/18/24 19:43
ALT 25 U/L (0-50) 08/18/24 19:43
Alkaline Phosphatase 152 U/L (38-126) H 08/18/24 19:43
Vital Signs and I&O:
Vital Signs
Temp Pulse Resp BP Pulse Ox
97.5 F 84 18 167/95 99
08/22/24 03:18 08/22/24 03:18 08/22/24 03:18 08/22/24 03:18 08/22/24 03:18
I&O
08/21/24 08/22/24 08/23/24
06:59 06:59 06:59
Intake Total 480 / 480 1010 / 1010
Output Total 2250 / 2250 1380 / 1380
Balance -1770 / -1770 -370 / -370
Physical Exam
Physical Exam
Cardiology: Normal Sinus Rhythm
Pulmonary: Clear
GI: Soft, Non Distended and Normal Bowel Sounds
[2024-08-22] MEDS: MIRALAX 17 GRAMS PO ×2 (08:17→19:28)
--- NOTE | 2024-08-22 08:54 | W.PN.HOSP.TC ---
Today's Communication/Plan
-
Discharge planning
Assessment / Plan
Assessment / Plan
Physical Exam
General: no acute distress appears comfortable at this time, no pallor, cyanosis, or jaundice
HEENT: Moist mucous membranes and PERRLA
Respiratory: Clear to auscultation b/l no wheezes rubs crackles
Cardiac: S1/S2 sinus tachy no murmur
GI: Soft, Non Tender, Non Distended and Normal Bowel Sounds
Musculoskeletal: No Clubbing, No Cyanosis and No Edema
Neuro: AO x 3 conversant coherent
Psych: calm
A/P:
Acute lower GI bleed:
Diverticular versus radiation proctitis versus angiectasis per GI
Restart Plavix and tolerated well
Stop aspirin
Off IV fluid
GI advance to low residue diet and tolerated well
On PPI twice daily
PT OT eval
GI cleared him for discharge today
Plan to discharge
CAD with relatively recent stents:
[employer] TE[employer]ER dual antiplatelet therapy
Cardiology consult initiated
Moving forward on Plavix only
Acute blood loss anemia:
Monitor hemoglobin
Blood transfusion as needed
Interstitial lung disease:
Appreciate pulmonary input
Chronic HFpEF:
Monitor volume status
Metastatic prostate cancer:
On chemoradiation
Likely needs to hold next treatment this week and will discuss with oncology as outpatient
DVT prophylaxis:
SCDs
CODE STATUS:
Full code
Anticipated Discharge: Today
Subjective/Interval History
-
Date of Service: August 22, 2024
Patient denies any nausea vomiting or bleeding
Objective Data
-
Labs:
Laboratory Results
08/22/24
05:36
WBC 12.2 H
Hgb 10.5 L
Hct 31.4 L
Plt Count 245
Sodium 133 L
Potassium 4.2
Chloride 106
Carbon Dioxide 21 L
BUN 17
Creatinine 0.5 L
Glucose 127 H
Calcium 7.9 L
Vital Signs:
Vital Signs
Temp Pulse Resp BP Pulse Ox
97.6 F 80 18 134/74 97
08/22/24 07:50 08/22/24 07:50 08/22/24 07:50 08/22/24 07:50 08/22/24 07:50
I&O
08/21/24 08/22/24 08/23/24
06:59 06:59 06:59
Intake Total 480 / 480 1010 / 1010
Output Total 2250 / 2250 1380 / 1380
Balance -1770 / -1770 -370 / -370
[2024-08-22 11:18] VITALS: BP 133/74
--- NOTE | 2024-08-22 12:03 | CM ---
Addendum entered by Lizabeth Higgins 08/22/24 16:16:
Patient seen with nurse, patient reports he will be appealing his discharge as he has not had a bowel movement. IMM signed, patient provided with copy. Patient aware to call [employer] today for appeal process. TT to Hospitalist with update.
Original Note:
CM reviewed chart, patient seen bedside. Patient confirms he is current with [facility] and will resume services upon discharge. Patient expressed concern regarding being discharged too early and returning to Hospital. CM provided IMM for patient to
review. Patient denies needs at this time. CM will continue to follow for all discharge planning needs.
Plan; home with , [facility], when stable.
--- NOTE | 2024-08-22 15:14 | W.PN.UPDATE ---
Update Note
Progress Note Update
GI note reviewed for today. Patient with painless rectal bleeding. The GI note acknowledges the cardiology note indicating that single antiplatelet agent therapy with Plavix 75 mg daily is acceptable. Aspirin has been stopped. GI is not planning
on further workup. GI has signed off the case. Patient is roughly 2 months out from his PCI and will continue with Plavix monotherapy. His outpatient dose of Lasix 40 mg daily was resumed yesterday. He should also continue with his usual doses
of Toprol-XL 25 mg twice daily and atorvastatin 80 mg daily. His outpatient dose of amlodipine 2.5 mg daily is on hold and there is no urgent indication to resume this from a cardiac standpoint. Cardiology follow-up has been arranged and please
call back with questions.
[2024-08-22 15:17] VITALS: BP 130/67
[2024-08-22 16:50] VITALS: BP 153/69; BP 159/79; PULSE 96; O2SAT 97
[2024-08-22] MEDS: LIPITOR 80 MG PO (17:31)
[2024-08-22] MEDS: COLACE 100 MG PO (19:27)
[2024-08-22 23:50] VITALS: BP 156/92
[2024-08-23 06:44] LABS: Hematocrit 31.8 % (39.0-52.0); Hemoglobin 10.4 g/dL (13.0-18.0); Mean Corp Hgb Conc. 32.7 g/dL (33.0-37.0); Mean Corpuscular Volume 85.7 fL (80.0-94.0); Mean Platelet Volume 9.7 fL (7.4-10.4); Platelet Count 252 10^3/uL (130-400); Red Blood Cell Count 3.71 10^6/uL (4.70-6.10); Red Cell Dist. Width 18.1 % (11.5-14.5); White Blood Cell Count 10.9 10^3/uL (4.8-10.8)
[2024-08-23 07:11] LABS: Blood Urea Nitrogen 18 mg/dl (9-20); Calcium 8.1 mg/dl (8.4-10.2); Carbon Dioxide 23 mmol/L (22-30); Chloride 105 mmol/L (98-107); Estimated Creatinine Clearance 110 ml/min; Glucose 113 mg/dl (70-99); Potassium 4.3 mmol/L (3.5-5.1); Sodium 136 mmol/L (135-145); eGFR > 60.00
[2024-08-23 07:45] VITALS: BP 149/69
[2024-08-23] MEDS: MIRALAX 17 GRAMS PO ×2 (08:47→20:25)
[2024-08-23] MEDS: TOPROL XL 25 MG PO ×2 (08:47→20:27)
[2024-08-23] MEDS: PROTONIX 40 MG PO ×2 (08:47→20:25)
[2024-08-23] MEDS: MS CONTIN (EXTENDED RELEASE) 30 MG PO ×2 (08:47→20:27)
[2024-08-23] MEDS: ZOLOFT 50 MG PO (08:48)
[2024-08-23] MEDS: COLACE 100 MG PO ×2 (08:48→20:25)
[2024-08-23] MEDS: PLAVIX 75 MG PO (08:48)
[2024-08-23] MEDS: DELTASONE 5 MG PO ×2 (08:48→20:27)
[2024-08-23] MEDS: NORVASC 2.5 MG PO (08:48)
[2024-08-23] MEDS: LASIX 40 MG PO (08:48)
--- NOTE | 2024-08-23 09:24 | W.PN.HOSP.TC ---
Today's Communication/Plan
-
Discharge planning
Assessment / Plan
Assessment / Plan
Physical Exam
General: no acute distress appears comfortable at this time, no pallor, cyanosis, or jaundice
HEENT: Moist mucous membranes and PERRLA
Respiratory: Clear to auscultation b/l no wheezes rubs crackles
Cardiac: S1/S2 sinus tachy no murmur
GI: Soft, Non Tender, Non Distended and Normal Bowel Sounds
Musculoskeletal: No Clubbing, No Cyanosis and No Edema
Neuro: AO x 3 conversant coherent
Psych: calm
A/P:
Acute lower GI bleed:
Diverticular versus radiation proctitis versus angiectasis per GI
Restart Plavix and tolerated well
Stop aspirin
Off IV fluid
GI advance to low residue diet and tolerated well
On PPI twice daily
PT OT eval
GI cleared him for discharge yesterday
CAD with relatively recent stents:
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
Cardiology consult initiated
Moving forward on Plavix only
Acute blood loss anemia:
Monitor hemoglobin
Blood transfusion as needed
Interstitial lung disease:
Appreciate pulmonary input
Chronic HFpEF:
Monitor volume status
Metastatic prostate cancer:
On chemoradiation
Likely needs to hold next treatment this week and will discuss with oncology as outpatient
DVT prophylaxis:
SCDs
CODE STATUS:
Full code
Anticipated Discharge: Today
Subjective/Interval History
-
Date of Service: August 23, 2024
No evidence of bleeding. He complains he has not had a bowel movement yet
Objective Data
-
Labs:
Laboratory Results
08/23/24
05:49
WBC 10.9 H
Hgb 10.4 L
Hct 31.8 L
Plt Count 252
Sodium 136
Potassium 4.3
Chloride 105
Carbon Dioxide 23
BUN 18
Creatinine 0.6 L
Glucose 113 H
Calcium 8.1 L
Vital Signs:
Vital Signs
Temp Pulse Resp BP Pulse Ox
98.2 F 79 20 149/69 97
08/23/24 07:45 08/23/24 08:47 08/23/24 07:45 08/23/24 08:47 08/23/24 07:45
I&O
08/22/24 08/23/24 08/24/24
06:59 06:59 06:59
Intake Total 1010 / 1010 960 / 960
Output Total 1380 / 1380 1950 / 1950
Balance -370 / -370 -990 / -990
[2024-08-23 14:38] VITALS: BP 153/76
--- NOTE | 2024-08-23 15:14 | CM ---
Patient seen, provided with detailed notice of discharge. Patient confirmed he called [employer] for appeal. CM will continue to follow for all discharge planning needs.
Plan; discharge has been appealed, awaiting determination.
[2024-08-23] MEDS: LIPITOR 80 MG PO (17:04)
--- NOTE | 2024-08-23 18:21 | PTCARENOTE ---
patient was straight cath see nursing note.
[2024-08-23 23:16] VITALS: BP 127/82
[2024-08-24] MEDS: TYLENOL 650 MG PO (02:09)
[2024-08-24 07:30] VITALS: BP 177/84
[2024-08-24] MEDS: MS CONTIN (EXTENDED RELEASE) 30 MG PO (08:29)
[2024-08-24] MEDS: MIRALAX 17 GRAMS PO (08:30)
[2024-08-24] MEDS: TOPROL XL 25 MG PO (08:30)
[2024-08-24] MEDS: COLACE 100 MG PO (08:30)
[2024-08-24] MEDS: NORVASC 2.5 MG PO (08:30)
[2024-08-24] MEDS: PROTONIX 40 MG PO (08:30)
[2024-08-24] MEDS: DELTASONE 5 MG PO (08:30)
[2024-08-24] MEDS: ZOLOFT 50 MG PO (08:30)
[2024-08-24] MEDS: PLAVIX 75 MG PO (08:30)
[2024-08-24] MEDS: LASIX 40 MG PO (08:30)
--- NOTE | 2024-08-24 09:10 | W.PN.HOSP.TC ---
Today's Communication/Plan
-
Discharge planning once insurance appeal process finishes.
Assessment / Plan
Assessment / Plan
Physical Exam
General: no acute distress appears comfortable at this time, no pallor, cyanosis, or jaundice
HEENT: Moist mucous membranes and PERRLA
Respiratory: Clear to auscultation b/l no wheezes rubs crackles
Cardiac: S1/S2 sinus tachy no murmur
GI: Soft, Non Tender, Non Distended and Normal Bowel Sounds
Musculoskeletal: No Clubbing, No Cyanosis and No Edema
Neuro: AO x 3 conversant coherent
Psych: calm
A/P:
Acute lower GI bleed:
Diverticular versus radiation proctitis versus angiectasis per GI
Restart Plavix and tolerated well
Stop aspirin
Off IV fluid
GI advance to low residue diet and tolerated well
On PPI twice daily
PT OT eval
GI cleared him for discharge
Discharge order placed a couple days ago and waiting for insurance determination
CAD with relatively recent stents:
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
Cardiology consult initiated
Moving forward on Plavix only
Acute blood loss anemia:
Monitor hemoglobin
Blood transfusion as needed
Interstitial lung disease:
Appreciate pulmonary input
Chronic HFpEF:
Monitor volume status
Metastatic prostate cancer:
On chemoradiation
Likely needs to hold next treatment this week and will discuss with oncology as outpatient
DVT prophylaxis:
SCDs
CODE STATUS:
Full code
Anticipated Discharge: Today
Subjective/Interval History
-
Date of Service: August 24, 2024
No new events. Had bowel movement.
Objective Data
-
Vital Signs:
Vital Signs
Temp Pulse Resp BP Pulse Ox
98.3 F 80 18 177/84 99
08/24/24 07:30 08/24/24 07:30 08/24/24 07:30 08/24/24 07:30 08/24/24 07:30
I&O
08/23/24 08/24/24 08/25/24
06:59 06:59 06:59
Intake Total 960 / 960 940 / 940
Output Total 1950 / 1950 1600 / 1600
Balance -990 / -990 -660 / -660
[2024-08-24 10:09] VITALS: BP 127/63; PULSE 95; O2SAT 98
--- NOTE | 2024-08-24 12:44 | CM ---
CM reviewed chart, patient seen bedside, agreeable to discharge home today. Patient reports son/ daughter in law will provide transportation home after work around 5:00 p.m. Patient will continue services with [facility]. CM will continue to follow for
all discharge planning needs.
Plan; home with [facility], family to transport.
--- NOTE | 2024-08-24 12:51 | W.DCSUMMARY ---
Discharge Summary
Discharge Data
Date of Admission: 08/19/24
Date of Discharge: 08/24/24
-
Pending Results: No
Hospital Course
Patient 83 years old male with history of metastatic prostate cancer CAD with relatively recent stents, presented to the hospital with lower GI bleed. GI was consulted. GI felt etiology was likely either diverticulosis versus radiation proctitis
versus angiectasis and less likely upper GI bleed. Cardiology was consulted. His aspirin was discontinued and he was kept on aspirin. Patient tolerated these changes and his hemoglobin remained stable. Patient did well rest of hospital stay. He
was actually discharged a couple days ago on 08/22 but he appealed his discharge. He continues to remain hemodynamically stable and physically being discharged today on 08/24. No other events were noticed.
Discharge duration: 35 minutes
Discharge Plan
-
Patient Disposition: Home with Home Care
Discharge Diagnosis/Procedures: Acute lower gastrointestinal bleed. History of recurrent metastatic prostate cancer. History of coronary artery disease with recent stents.
Condition: Good
Diet: Low Cholesterol
Activity: As tolerated
Blood Work: Please PCP to order CBC, BMP within 1 week
Referrals:
Mauro Cervantes MD [Family Provider] - in less than 1 week
Yosef Carter MD [Active] - 09/03/24 8:20 am (You have an appointment to see Dr. Carter at the [place] office on 09/03/2024 at 8:20 AM. Please call [phone] if you need to reschedule)
Miguel Denny MD [Active] - in four to six weeks (PFT/6MWT)
Karla Reyna MD [Active] - in one to two weeks
Prescriptions:
New
pantoprazole 40 mg Tablet,Delayed Release (Dr/Ec)
40 mg PO BID 30 Days Qty: 60 0RF
amlodipine 2.5 mg Tablet
2.5 mg PO DAILY Qty: 0 0RF
Continued
furosemide 20 mg Tablet
40 mg PO DAILY
hydromorphone 2 mg Tablet
2 mg PO Q3HPRN PRN (Reason: Breakthrough pain) Qty: 30 0RF
atorvastatin 80 mg Tablet
80 mg PO QPM Qty: 30 0RF
polyethylene glycol 3350 17 gram Powder In Packet
17 g PO DAILY Qty: 30 0RF
sennosides-docusate sodium 8.6-50 mg Tablet
2 tab PO BID Qty: 60 0RF
clopidogrel 75 mg Tablet
75 mg PO DAILY Qty: 90 4RF
morphine 15 mg Tablet Extended Release
30 mg PO Q12 Qty: 60 0RF
metoprolol succinate 25 mg Tablet Extended Release 24 Hr
25 mg PO BID Qty: 60 0RF
therapeutic multivitamin Tablet
1 tab PO DAILY
acetaminophen [Tylenol Extra Strength] 500 mg tablet
1,000 mg PO TIDPRN PRN (Reason: mild pain)
ondansetron HCl 8 mg Tablet
8 mg PO Q8H PRN (Reason: nausea)
prochlorperazine maleate 10 mg Tablet
10 mg PO Q6H PRN (Reason: nausea)
sertraline
50 mg PO DAILY
prednisone 10 mg tablet
5 mg PO BID
Discontinued
aspirin 81 mg Tablet,Chewable
81 mg PO DAILY Qty: 30 0RF
pantoprazole 40 mg Tablet,Delayed Release (Dr/Ec)
40 mg PO DAILY Qty: 30 0RF
amlodipine [Norvasc] 2.5 mg Tablet
2.5 mg PO DAILY
Discharge Orders:
Discharge Patient (As Directed); Ordered 08/22/24
Ordered By: Fahad Toledo
Discharge Date and Time
Discharge Date/Time: 08/24/24 18:07
Print Language: TAMAZIGHT
[2024-08-24 15:00] VITALS: BP 142/66
== END 2024-08-24 18:07 | disposition home health service (06) | DRG 393 ==
LOC: 4 WEST ACU 08:33
PROVIDERS: Internal Medicine; Physician Assistant; ADMITTING PHYSICIAN Hospitalist; ATTENDING PHYSICIAN Hospitalist; CONSULT PHYSICIAN Internal Medicine Cardiovascular Disease; CONSULT PHYSICIAN Internal Medicine Critical Care Medicine; CONSULT PHYSICIAN Internal Medicine Gastroenterology; EMERGENCY PHYSICIAN Emergency Medicine; FAMILY PHYSICIAN Family Medicine
PROC: 30233N1 Transfusion of Nonautologous Red Blood Cells into Peripheral Vein, Percutaneous Approach (ICD-10-PCS; 2024-08-19)
DX: K62.7 Radiation proctitis (principal); K55.21 Angiodysplasia of colon with hemorrhage; K57.91 Diverticulosis of intestine, part unspecified, without perforation or abscess with bleeding; C79.51 Secondary malignant neoplasm of bone; I50.32 Chronic diastolic (congestive) heart failure; D62 Acute posthemorrhagic anemia; D68.32 Hemorrhagic disorder due to extrinsic circulating anticoagulants; J84.9 Interstitial pulmonary disease, unspecified; Y84.2 Radiological procedure and radiotherapy as the cause of abnormal reaction of the patient, or of later complication, without mention of misadventure at the time of the procedure; I25.10 Atherosclerotic heart disease of native coronary artery without angina pectoris; I11.0 Hypertensive heart disease with heart failure; Z85.46 Personal history of malignant neoplasm of prostate; Z92.21 Personal history of antineoplastic chemotherapy; Z95.5 Presence of coronary angioplasty implant and graft; Z79.02 Long term (current) use of antithrombotics/antiplatelets
CPT/HCPCS: 51701; 74174; 80048; 80053; 83605; 83735; 83880; 84100; 85014; 85018; 85025; 85027; 85610; 85730; 86850; 86900; 86901; 86920; 93005; 96360; 97116; 97163; 97167; 97530; 99285; P9016; Q9967

== ENCOUNTER → 2024-09-03 11:50 | Outpatient (REF) | payer MEDICARE, OTHER, SELFPAY ==
[2024-09-03 13:03] LABS: % Basophils 0.5 % (0-2); % Eosinophils 0.7 % (0-6); % Immature Granulocytes 0.5 % (0-0.5); % Lymphocytes 9.6 % (20.5-51.1); % Monocytes 8.3 % (1.7-9.3); % Neutrophils 80.4 % (42.2-75.2); Absolute Eosinophils 0.1 10^3/uL (0-0.7); Absolute Lymphocytes 0.8 10^3/uL (1.2-3.4); Absolute Monocytes 0.7 10^3/uL (0.1-0.6); Absolute Neutrophils 6.9 10^3/uL (1.4-6.5); Hematocrit 38.2 % (39.0-52.0); Hemoglobin 11.8 g/dL (13.0-18.0); Mean Corp Hgb Conc. 30.9 g/dL (33.0-37.0); Mean Corpuscular Hgb 27.4 pg (27.0-31.0); Mean Corpuscular Volume 88.6 fL (80.0-94.0); Mean Platelet Volume 9.4 fL (7.4-10.4); Nucleated Red Blood Cells % 0 % (-); Platelet Count 350 10^3/uL (130-400); Red Blood Cell Count 4.31 10^6/uL (4.70-6.10); Red Cell Dist. Width 18.9 % (11.5-14.5); White Blood Cell Count 8.5 10^3/uL (4.8-10.8)
[2024-09-03 13:23] LABS: Blood Urea Nitrogen 24 mg/dl (9-20); Calcium 8.6 mg/dl (8.4-10.2); Carbon Dioxide 24 mmol/L (22-30); Chloride 102 mmol/L (98-107); Glucose 106 mg/dl (70-99); Potassium 4.1 mmol/L (3.5-5.1); Sodium 138 mmol/L (135-145); eGFR > 60.00
== END ==
LOC: CLAB 11:50
PROVIDERS: ATTENDING PHYSICIAN Family Medicine
DX: Z09 Encounter for follow-up examination after completed treatment for conditions other than malignant neoplasm (principal); R73.01 Impaired fasting glucose; E78.00 Pure hypercholesterolemia, unspecified
CPT/HCPCS: 36415; 80048; 85025

== ENCOUNTER → 2024-09-10 08:25 | Outpatient (REF) | payer MEDICARE, OTHER, SELFPAY ==
[2024-09-10 16:56] LABS: ALT (SGPT) 52 U/L (0-50); AST (SGOT) 40 U/L (17-59); Albumin 3.6 g/dl (3.5-5.0); Alkaline Phosphatase 258 U/L (38-126); Blood Urea Nitrogen 17 mg/dl (9-20); Calcium 7.8 mg/dl (8.4-10.2); Carbon Dioxide 21 mmol/L (22-30); Chloride 101 mmol/L (98-107); Direct Bilirubin 0.2 mg/dl (0.0-0.4); Glucose 96 mg/dl (70-99); HDL Cholesterol 33 mg/dl; LDL Cholesterol, Calculated 78 mg/dl; Potassium 4.6 mmol/L (3.5-5.1); Sodium 135 mmol/L (135-145); Total Bilirubin 0.9 mg/dl (0.2-1.3); Total Cholesterol 134 mg/dl (50-199); Triglyceride 119 mg/dl (10-149); Very Low Density Lipoprotein 23 mg/dl (0-30); eGFR > 60.00
[2024-09-10 17:03] LABS: % Basophils 0.6 % (0-2); % Eosinophils 1.3 % (0-6); % Immature Granulocytes 0.5 % (0-0.5); % Lymphocytes 9.6 % (20.5-51.1); % Monocytes 8.7 % (1.7-9.3); % Neutrophils 79.3 % (42.2-75.2); Absolute Basophils 0.1 10^3/uL (0-0.2); Absolute Eosinophils 0.1 10^3/uL (0-0.7); Absolute Immature Granulocytes 0.1 10^3/uL (0-0.05); Absolute Lymphocytes 0.9 10^3/uL (1.2-3.4); Absolute Monocytes 0.8 10^3/uL (0.1-0.6); Absolute Neutrophils 7.4 10^3/uL (1.4-6.5); Hematocrit 36.6 % (39.0-52.0); Hemoglobin 11.4 g/dL (13.0-18.0); Mean Corp Hgb Conc. 31.1 g/dL (33.0-37.0); Mean Corpuscular Hgb 27.1 pg (27.0-31.0); Mean Corpuscular Volume 87.1 fL (80.0-94.0); Mean Platelet Volume 9.5 fL (7.4-10.4); Nucleated Red Blood Cells % 0 % (-); Platelet Count 369 10^3/uL (130-400); Red Cell Dist. Width 18.3 % (11.5-14.5); White Blood Cell Count 9.4 10^3/uL (4.8-10.8)
== END ==
LOC: CLAB 08:25
PROVIDERS: ATTENDING PHYSICIAN Internal Medicine Hematology & Oncology; FAMILY PHYSICIAN Family Medicine
DX: C61 Malignant neoplasm of prostate (principal); E78.00 Pure hypercholesterolemia, unspecified
CPT/HCPCS: 36415; 80053; 80061; 82248; 84153; 85025

== ENCOUNTER → 2024-10-01 16:02 | Outpatient (REF) | payer MEDICARE, OTHER, SELFPAY ==
[2024-10-01 17:28] LABS: Hematocrit 36.1 % (39.0-52.0); Hemoglobin 11.2 g/dL (13.0-18.0); Mean Corpuscular Hgb 27.1 pg (27.0-31.0); Mean Corpuscular Volume 87.2 fL (80.0-94.0); Mean Platelet Volume 10.5 fL (7.4-10.4); Platelet Count 286 10^3/uL (130-400); Red Blood Cell Count 4.14 10^6/uL (4.70-6.10); Red Cell Dist. Width 19.9 % (11.5-14.5); White Blood Cell Count 24.6 10^3/uL (4.8-10.8)
[2024-10-01 17:30] LABS: ALT (SGPT) 34 U/L (0-50); AST (SGOT) 31 U/L (17-59); Albumin 3.7 g/dl (3.5-5.0); Alkaline Phosphatase 162 U/L (38-126); Blood Urea Nitrogen 33 mg/dl (9-20); Calcium 8.7 mg/dl (8.4-10.2); Carbon Dioxide 27 mmol/L (22-30); Chloride 103 mmol/L (98-107); Glucose 97 mg/dl (70-99); Sodium 140 mmol/L (135-145); Total Bilirubin 0.6 mg/dl (0.2-1.3); Total Protein 6.1 g/dl (6.3-8.2); eGFR > 60.00
[2024-10-01 19:46] LABS: % Basophils 0.8 % (0-2); % Eosinophils 0.1 % (0-6); % Immature Granulocytes 4.3 % (0-0.5); % Lymphocytes 4.8 % (20.5-51.1); % Monocytes 5.4 % (1.7-9.3); % Neutrophils 84.6 % (42.2-75.2); Absolute Basophils 0.2 10^3/uL (0-0.2); Absolute Immature Granulocytes 1.1 10^3/uL (0-0.05); Absolute Lymphocytes 1.2 10^3/uL (1.2-3.4); Absolute Monocytes 1.3 10^3/uL (0.1-0.6); Absolute Neutrophils 20.8 10^3/uL (1.4-6.5); Nucleated Red Blood Cells % 0.6 % (-)
== END ==
LOC: CLAB 16:02
PROVIDERS: ATTENDING PHYSICIAN Internal Medicine Hematology & Oncology; FAMILY PHYSICIAN Family Medicine
DX: C61 Malignant neoplasm of prostate (principal)
CPT/HCPCS: 36415; 80053; 84153; 85025

== ENCOUNTER → 2024-10-15 08:20 | Outpatient (REF) | payer MEDICARE, OTHER, SELFPAY ==
[2024-10-15 17:21] LABS: % Basophils 0.4 % (0-2); % Eosinophils 1.2 % (0-6); % Immature Granulocytes 0.6 % (0-0.5); % Lymphocytes 6.2 % (20.5-51.1); % Monocytes 5.6 % (1.7-9.3); ALT (SGPT) 27 U/L (0-50); AST (SGOT) 41 U/L (17-59); Absolute Basophils 0.1 10^3/uL (0-0.2); Absolute Eosinophils 0.2 10^3/uL (0-0.7); Absolute Immature Granulocytes 0.1 10^3/uL (0-0.05); Absolute Lymphocytes 0.9 10^3/uL (1.2-3.4); Absolute Monocytes 0.8 10^3/uL (0.1-0.6); Absolute Neutrophils 12.2 10^3/uL (1.4-6.5); Albumin 3.7 g/dl (3.5-5.0); Alkaline Phosphatase 165 U/L (38-126); Blood Urea Nitrogen 25 mg/dl (9-20); Calcium 8.4 mg/dl (8.4-10.2); Carbon Dioxide 26 mmol/L (22-30); Chloride 103 mmol/L (98-107); Glucose 109 mg/dl (70-99); Hematocrit 40.3 % (39.0-52.0); Hemoglobin 12.7 g/dL (13.0-18.0); Mean Corp Hgb Conc. 31.5 g/dL (33.0-37.0); Mean Corpuscular Hgb 27.1 pg (27.0-31.0); Mean Corpuscular Volume 86.1 fL (80.0-94.0); Mean Platelet Volume 9.7 fL (7.4-10.4); Nucleated Red Blood Cells % 0 % (-); Platelet Count 385 10^3/uL (130-400); Potassium 4.8 mmol/L (3.5-5.1); Red Blood Cell Count 4.68 10^6/uL (4.70-6.10); Red Cell Dist. Width 21.2 % (11.5-14.5); Sodium 141 mmol/L (135-145); Total Bilirubin 0.7 mg/dl (0.2-1.3); Total Protein 6.2 g/dl (6.3-8.2); White Blood Cell Count 14.2 10^3/uL (4.8-10.8); eGFR > 60.00
== END ==
LOC: CLAB 08:20
PROVIDERS: ATTENDING PHYSICIAN Internal Medicine Hematology & Oncology; FAMILY PHYSICIAN Family Medicine
DX: C61 Malignant neoplasm of prostate (principal)
CPT/HCPCS: 36415; 80053; 84153; 85025

== ENCOUNTER → 2024-11-12 16:46 | Outpatient (REF) | payer MEDICARE, OTHER, SELFPAY ==
[2024-11-12 17:53] LABS: Hematocrit 36.9 % (39.0-52.0); Hemoglobin 11.2 g/dL (13.0-18.0); Mean Corp Hgb Conc. 30.4 g/dL (33.0-37.0); Mean Corpuscular Hgb 26.3 pg (27.0-31.0); Mean Corpuscular Volume 86.6 fL (80.0-94.0); Mean Platelet Volume 9.4 fL (7.4-10.4); Platelet Count 324 10^3/uL (130-400); Red Blood Cell Count 4.26 10^6/uL (4.70-6.10); Red Cell Dist. Width 22.3 % (11.5-14.5); White Blood Cell Count 17.7 10^3/uL (4.8-10.8)
[2024-11-12 17:58] LABS: ALT (SGPT) 42 U/L (0-50); AST (SGOT) 53 U/L (17-59); Albumin 3.7 g/dl (3.5-5.0); Alkaline Phosphatase 150 U/L (38-126); Blood Urea Nitrogen 22 mg/dl (9-20); Calcium 8.2 mg/dl (8.4-10.2); Carbon Dioxide 27 mmol/L (22-30); Chloride 100 mmol/L (98-107); Glucose 109 mg/dl (70-99); Potassium 4.9 mmol/L (3.5-5.1); Sodium 136 mmol/L (135-145); Total Bilirubin 0.7 mg/dl (0.2-1.3); Total Protein 6.3 g/dl (6.3-8.2); eGFR > 60.00
[2024-11-12 19:25] LABS: % Basophils 0.4 % (0-2); % Eosinophils 0.3 % (0-6); % Immature Granulocytes 1.6 % (0-0.5); % Lymphocytes 4.5 % (20.5-51.1); % Monocytes 5.4 % (1.7-9.3); % Neutrophils 87.8 % (42.2-75.2); Absolute Basophils 0.1 10^3/uL (0-0.2); Absolute Eosinophils 0.1 10^3/uL (0-0.7); Absolute Immature Granulocytes 0.3 10^3/uL (0-0.05); Absolute Lymphocytes 0.8 10^3/uL (1.2-3.4); Absolute Neutrophils 15.5 10^3/uL (1.4-6.5); Anisocytosis 2+; Macrocytosis 3+; Normal RBC Morphology No; Nucleated Red Blood Cells % 0.1 % (-); Ovalocytes 1+
== END ==
LOC: CLAB 16:46
PROVIDERS: ATTENDING PHYSICIAN Family Medicine
DX: C61 Malignant neoplasm of prostate (principal)
CPT/HCPCS: 36415; 80053; 84153; 85025

== ENCOUNTER 2024-11-14 20:23 | Inpatient (IN) | payer MEDICARE, OTHER, SELFPAY ==
[2024-11-14 16:39] LABS: % Basophils 0.5 % (0-2); % Eosinophils 0.5 % (0-6); % Lymphocytes 4.3 % (20.5-51.1); % Monocytes 5.5 % (1.7-9.3); % Neutrophils 88.2 % (42.2-75.2); Absolute Basophils 0.1 10^3/uL (0-0.2); Absolute Eosinophils 0.1 10^3/uL (0-0.7); Absolute Immature Granulocytes 0.2 10^3/uL (0-0.05); Absolute Lymphocytes 0.8 10^3/uL (1.2-3.4); Absolute Monocytes 1.1 10^3/uL (0.1-0.6); Hematocrit 37.7 % (39.0-52.0); Hemoglobin 11.8 g/dL (13.0-18.0); Mean Corp Hgb Conc. 31.3 g/dL (33.0-37.0); Mean Corpuscular Hgb 26.6 pg (27.0-31.0); Mean Corpuscular Volume 85.1 fL (80.0-94.0); Mean Platelet Volume 8.9 fL (7.4-10.4); Nucleated Red Blood Cells % 0.2 % (-); Platelet Count 418 10^3/uL (130-400); Red Blood Cell Count 4.43 10^6/uL (4.70-6.10); Red Cell Dist. Width 22.3 % (11.5-14.5); White Blood Cell Count 19.2 10^3/uL (4.8-10.8)
[2024-11-14 16:48] LABS: ALT (SGPT) 46 U/L (0-50); AST (SGOT) 40 U/L (17-59); Albumin 3.6 g/dl (3.5-5.0); Alkaline Phosphatase 127 U/L (38-126); Blood Urea Nitrogen 26 mg/dl (9-20); Calcium 8.8 mg/dl (8.4-10.2); Carbon Dioxide 31 mmol/L (22-30); Chloride 103 mmol/L (98-107); Glucose 167 mg/dl (70-99); Sodium 142 mmol/L (135-145); Total Bilirubin 0.6 mg/dl (0.2-1.3); Total Protein 6.5 g/dl (6.3-8.2); eGFR > 60.00
[2024-11-14 16:50] LABS: COVID-19 Antigen Negative (Negative)
[2024-11-14 16:59] LABS: NT-proBNP 4740 pg/ml; Troponin I 0.086 ng/ml
[2024-11-14 17:00] VITALS: BP 148/82
[2024-11-14 18:42] VITALS: BMI 29.7
[2024-11-14 19:00] VITALS: BP 137/81
[2024-11-14] MEDS: LASIX 40 MG IV (19:05)
[2024-11-14] MEDS: LOPRESSOR 5 MG IV (19:05)
--- NOTE | 2024-11-14 19:11 | ED.GENMED ---
History of Present Illness
<Sreekanth Mane PA-C - Last Filed: 11/14/24 22:28>
General
Chief Complaint: Breathing Problem
Time Seen by Provider: 11/14/24 16:13
History of Present Illness
History of Present Illness:
84-year-old male with history of metastatic prostate cancer, hyperlipidemia, and coronary artery disease presents to the emergency department for evaluation of chest tightness and shortness of breath. Arrives by EMS on 15 L nonrebreather, he was
reportedly saturating well on 6 L nasal cannula however they switched him to a mask as he was 'mouth breathing'. Patient states that his symptoms have improved on higher flow oxygen. Chronically on 3 L nasal cannula. Denies chest pain or leg
swelling at this time.
Past History
<Sreekanth Mane PA-C - Last Filed: 11/14/24 22:28>
Past History
ED Past Medical History: Cancer (Prostate cancer with widespread metastatic disease), Hypercholesterolemia and Other (Rheumatic heart disease)
ED Past Surgical History: Orthopedic and Urological
Social History
Tobacco: Non-smoker
Alcohol: None
Personal:
Living: alone
Employment: Retired
Family History
Family History: Other (Noncontributory)
Review of Systems
<Sreekanth Mane PA-C - Last Filed: 11/14/24 22:28>
Review of Systems
Allergies reviewed?: Yes
All Other Systems: ROS reviewed and negative except as documented in HPI and ROS
Phy Exam
<Sreekanth Mane PA-C - Last Filed: 11/14/24 22:28>
Physical Exam
Physical Exam:
GEN: Well appearing, NAD, WDWN
HEENT: Oral mucosa moist, no scleral icterus
Cardiac: Tachycardic, regular, no murmur
Lung: No respiratory distress, no tachypnea, bibasilar crackles
MSK: No gross deformity or injuries, no lower extremity edema
Skin: Good color, no pallor or jaundice, no rashes
Neuro: AO x3, moves all extremities freely
Psych: Calm, cooperative
Scores
<Sreekanth Mane PA-C - Last Filed: 11/14/24 22:28>
Heart Failure Risk
Heart Failure Risk Score: Yes
History of Stroke or TIA: No
History of intubation for respiratory distress: No
Heart rate on ED arrival >/= 110: Yes
SaO2 <90% on arrival on room air: Yes
HR >/=110 during 3min walk test (or too ill to perform test): Yes
ECG has acute ischemic changes: No
Urea >/=12mmol/L (BUN 33.6mg/dL): No
Serum CO2>/=35mmol/L: No
Troponin I or T elevated to VA Level (0.4mg/dL): Yes
NT-proBNP >/=5,000ng/L (5,000pg/ml): No
HF Risk Score: 5
Admission Status: VERY HIGH RISK 39.8% Consider admission to hospital
Course
<Sreekanth Mane PA-C - Last Filed: 11/14/24 22:28>
Orders/Labs/Results
Orders:
Orders
11/14/24 Breakfast
Cholesterol Lowering
At Your Request: Full Participation
Cholesterol Lowering: Sodium, 2 Gram
11/14/24 16:08
Electrocardiogram (*1) Urgent
Reason for Study: Chest Pain
EKG- Treatment ONCE
11/14/24 16:17
CR Chest - 2 Views Urgent
Comment:
Reason For Exam: SOB
11/14/24 16:21
COVID-19 Antigen Urgent
Source: Nasal Swab
Complete Blood Count/With Diff Urgent
Comprehensive Metabolic Panel Urgent
NT-proBNP Urgent
Troponin I Urgent
Influenza A+B Rapid Molecular Urgent
JOSE Source: Nasal Swab
Specimen Description:
11/14/24 18:43
Furosemide [Lasix] 40 mg IV NOW STA
Metoprolol [Lopressor] 5 mg IV NOW STA
11/14/24 19:39
Admit/Transfer Patient As Directed
Co-Sign Provider:
Level of Care: Inpatient admission
Assign to:: Telemetry
Physician / Group: Brody
Diagnosis: Afib RVR/ CHF
Reason for Telemetry: Chest Pain syndromes
Date to Stop Telemetry: 11/16/24
Time to Stop Telemetry: 11:00
Reason for Hospitalization: Afib RVR/ CHF
Expected length of stay greater than two midnights?: Yes
ELOS- Estimated Length of Stay in days: 2
I certify the patient meets the requirements for IP care: Yes
PRN Pain Medication Management As Directed
May give lesser potent ordered pain med per pt: Yes
preference::
Protocol:: Medication orders for pain may be administered in a
manner that supports deferring to patient preference
when the pt is:
- Requesting an ordered lesser potent pain medication.
Least to most potent pain medications are defined
as: acetaminophen < NSAID < tramadol < opioids
(morphine, oxycodone, hydromorphone).
- Requesting a lesser dose of the same medication IF
ORDERED.
- Requesting a less intrusive route of administration
if both routes are prescribed by the provider (PO <
IV).
11/14/24 19:41
Code Status As Directed
Resuscitation Status: Full Code
11/14/24 19:51
Stool for occult blood [Hemetest Stools] As Directed
11/14/24 20:05
Heparin Protocol- PTT Orders As Directed
PTT per Heparin protocol: -Obtain CBC and baseline PTT - if not already collected.
-Obtain PTT 6 hours from start of infusion. Then, every 6 hours until 2 consecutive
PTT's are therapeutic. Then, PTT Daily.
-With each rate change, obtain PTT every 6 hours until 2 consecutive PTT's are
therapeutic. Then, PTT Daily.
Notify MD As Directed
Notify physician if: PTT is greater than or equal to 200.
11/14/24 20:15
Heparin 04557 Units/250 ml 25,000 units in 250 ml IV PER PROTOCOL
Weight to be used for heparin protocol in kilograms (kg):: 105
Protocol:: Cardiac Tx/Acute Coronary
PTT Goal Range to be used:: PTT 73 to 111 seconds
Order type:: Initial
INITIAL Infusion Dose (UNITS/KG/hr) & then follow protocol:: 12 units/kg/hr
Infusion Dose in UNITS/hr & then follow protocol (UNITS/hr):: 1,000
INFUSION RATE in mL/hr & then follow protocol (mL/hr):: 10
PTT less than or equal to 64 seconds:: Increase rate by 200 units/hr (+ 2 mL/hr)
PTT 64.1 to 72.9 seconds:: Increase rate by 100 units/hr (+ 1 mL/hr)
PTT 73 to 111 seconds:: Target Range. No change in rate.
PTT 111.1 to 130.9 seconds:: Decrease rate by 100 units/hr (- 1 mL/hr)
PTT 131 to 199.9 seconds:: HOLD for 1 hr. Then decrease rate by 200 units/hr (- 2 mL/hr)
PTT greater than or equal to 200 seconds:: HOLD for 2 hrs & Notify Provider. Then decrease by 200 units/hr (-
2 mL/hr)
Lab follow-up:: Each change, PTT q6h until 2 consecutive are therapeutic. Then PTT
daily.
11/14/24 20:26
Type+Screen Urgent
Magnesium Urgent
Comment: add on
PTT Urgent
Comment: Obtain baseline before beginning heparin infusion if not already collected
Prothrombin Time Urgent
Troponin I Q6H
11/14/24 21:12
Acetaminophen [Tylenol] 1,000 mg PO BID
Atorvastatin [Lipitor] 80 mg PO QPM
Docusate W/Senna [Senokot-S] 2 tablet PO BIDPRN PRN
HYDROmorphone [Dilaudid] 2 mg PO Q4HPRN PRN
Pantoprazole [Protonix] 40 mg PO BID
Prochlorperazine [Compazine] 10 mg PO Q6HPRN PRN
Sertraline HCl [Zoloft] 50 mg PO QPM
11/14/24 21:12
CARDIOLOGY CONSULT Routine
Consulting Provider: Asya Ochoa
Was physician already notified: Yes
Reason for consult: new afib rvr / decompensated chf
HF DIETARY CONSULT Routine
HF EDUCATOR CONSULT Routine
Comment:
Activity As Directed
Activity Level: As Tolerated
Intake/ Output As Directed
Frequency: Per unit guidelines
Comment: Strict
Patient Education As Directed
Type: CHF folder
Comment: give on admission. Document in Interdisciplinary Education record
Pneumatic Compression Sleeves As Directed
Type: Knee high
Sleep Apnea Assessment by RN As Directed
Comment:
Physician Instructions:
Vital Signs As Directed
Frequency: Other
Additional Instructions:: Q12 or per unit guidelines if more frequent.
Weight As Directed
Frequency: Daily
Type of Scale: Standing Scale
Comment: Daily morning weight. If unable to stand, use balanced bed scale.
Weight As Directed
Frequency: Once
Type of Scale: Standing Scale
Comment: Upon Admission. If unable to stand, use balanced bed scale.
Pulse Ox/cont/shift [RESP] Routine
Quantity: 1
Special Instructions: Daily pulse oximetry at rest. If greater than 92% at rest also obtain pulse oximetry
while ambulating as tolerated.
Pt Eval And Treat Routine
Activity Level: As Tolerated
DX Deep Vein Thrombosis Video Routine
11/14/24 21:30
Morphine Sulfate Extended Rel. [Ms Contin (Extended Release)] 30 mg PO BID
11/14/24 21:38
Ondansetron HCl [Zofran] 8 mg PO Q8HPRN PRN
11/14/24 22:00
Calcium Carbonate/Vitamin D3 [Oscal 500 + D] 1,000 mg PO BID
Metoprolol Xl [Toprol Xl] 50 mg PO BID
Prednisone [Deltasone] 5 mg PO BID
11/15/24 02:15
Troponin I Q6H
11/15/24 06:00
Basic Metabolic Panel IN AM
Complete Blood Count/No Diff IN AM
Magnesium IN AM
PTT IN AM
Prothrombin Time IN AM
TSH Reflex To Free T4 IN AM
11/15/24 08:00
Amlodipine [Norvasc] 2.5 mg PO DAILY
Clopidogrel Bisulfate [Plavix] 75 mg PO DAILY
Furosemide [Lasix] 40 mg IV DAILY
Multivitamin [Theragran] 1 tablet PO DAILY
Polyethylene Glycol Powder [Miralax] 17 grams PO DAILY
11/16/24 06:00
Basic Metabolic Panel IN AM
Complete Blood Count/No Diff Q2D
Comment: Notify if platelet count is <130,000 or decreases by 50% from baseline
Prothrombin Time IN AM
11/16/24 11:00
DC Protocol for Telemetry ONCE
11/17/24 06:00
Basic Metabolic Panel IN AM
Prothrombin Time IN AM
11/18/24 06:00
Complete Blood Count/No Diff Q2D
Comment: Notify if platelet count is <130,000 or decreases by 50% from baseline
11/20/24 06:00
Complete Blood Count/No Diff Q2D
Comment: Notify MD if platelet count is <130,000 or decreases by 50% from baseline
11/22/24 06:00
Complete Blood Count/No Diff Q2D
Comment: Notify MD if platelet count is <130,000 or decreases by 50% from baseline
11/24/24 06:00
Complete Blood Count/No Diff Q2D
Comment: Notify MD if platelet count is <130,000 or decreases by 50% from baseline
11/26/24 06:00
Complete Blood Count/No Diff Q2D
Comment: Notify MD if platelet count is <130,000 or decreases by 50% from baseline
11/28/24 06:00
Complete Blood Count/No Diff Q2D
Comment: Notify MD if platelet count is <130,000 or decreases by 50% from baseline
11/30/24 06:00
Complete Blood Count/No Diff Q2D
Comment: Notify MD if platelet count is <130,000 or decreases by 50% from baseline
Abnormal Lab Results
11/14/24
16:21
WBC 19.2 H 10^3/uL
(4.8-10.8)
RBC 4.43 L 10^6/uL
(4.70-6.10)
Hgb 11.8 L g/dL
(13.0-18.0)
Hct 37.7 L %
(39.0-52.0)
MCH 26.6 L pg
(27.0-31.0)
MCHC 31.3 L g/dL
(33.0-37.0)
RDW 22.3 H %
(11.5-14.5)
Plt Count 418 H D 10^3/uL
(130-400)
Abs Immat Gran (auto) 0.2 H 10^3/uL
(0-0.05)
Absolute Neuts (auto) 17.0 H 10^3/uL
(1.4-6.5)
Absolute Lymphs (auto) 0.8 L 10^3/uL
(1.2-3.4)
Absolute Monos (auto) 1.1 H 10^3/uL
(0.1-0.6)
Immature Gran % 1.0 H %
(0-0.5)
Neutrophils % 88.2 H %
(42.2-75.2)
Lymphocytes % 4.3 L %
(20.5-51.1)
Carbon Dioxide 31 H mmol/L
(22-30)
BUN 26 H mg/dl
(9-20)
Glucose 167 H mg/dl
(70-99)
Alkaline Phosphatase 127 H U/L
(38-126)
Troponin I 0.086 H* ng/ml
11/14/24 16:21
11/14/24 16:21
Vital Signs
Initial and Last Documented VS:
Initial Vital Signs
Pulse Resp Pulse Ox
123 20 97
11/14/24 16:09 11/14/24 16:09 11/14/24 16:09
Last Documented Vital Signs
Pulse Resp BP Pulse Ox
123 17 126/77 96
11/14/24 22:03 11/14/24 20:00 11/14/24 22:03 11/14/24 20:00
<Hossein Mejia, DO - Last Filed: 11/14/24 19:40>
Orders/Labs/Results
Orders:
Orders
11/14/24 Breakfast
Cholesterol Lowering
At Your Request: Full Participation
Cholesterol Lowering: Sodium, 2 Gram
11/14/24 16:08
Electrocardiogram (*1) Urgent
Reason for Study: Chest Pain
EKG- Treatment ONCE
11/14/24 16:17
CR Chest - 2 Views Urgent
Comment:
Reason For Exam: SOB
11/14/24 16:21
COVID-19 Antigen Urgent
Source: Nasal Swab
Complete Blood Count/With Diff Urgent
Comprehensive Metabolic Panel Urgent
NT-proBNP Urgent
Troponin I Urgent
Influenza A+B Rapid Molecular Urgent
JOSE Source: Nasal Swab
Specimen Description:
11/14/24 18:43
Furosemide [Lasix] 40 mg IV NOW STA
Metoprolol [Lopressor] 5 mg IV NOW STA
11/14/24 19:39
Admit/Transfer Patient As Directed
Co-Sign Provider:
Level of Care: Inpatient admission
Assign to:: Telemetry
Physician / Group: Brody
Diagnosis: Afib RVR/ CHF
Reason for Telemetry: Chest Pain syndromes
Date to Stop Telemetry: 11/16/24
Time to Stop Telemetry: 11:00
Reason for Hospitalization: Afib RVR/ CHF
Expected length of stay greater than two midnights?: Yes
ELOS- Estimated Length of Stay in days: 2
I certify the patient meets the requirements for IP care: Yes
PRN Pain Medication Management As Directed
May give lesser potent ordered pain med per pt: Yes
preference::
Protocol:: Medication orders for pain may be administered in a
manner that supports deferring to patient preference
when the pt is:
- Requesting an ordered lesser potent pain medication.
Least to most potent pain medications are defined
as: acetaminophen < NSAID < tramadol < opioids
(morphine, oxycodone, hydromorphone).
- Requesting a lesser dose of the same medication IF
ORDERED.
- Requesting a less intrusive route of administration
if both routes are prescribed by the provider (PO <
IV).
11/14/24 19:41
Code Status As Directed
Resuscitation Status: Full Code
11/14/24 19:51
Stool for occult blood [Hemetest Stools] As Directed
11/14/24 20:05
Heparin Protocol- PTT Orders As Directed
PTT per Heparin protocol: -Obtain CBC and baseline PTT - if not already collected.
-Obtain PTT 6 hours from start of infusion. Then, every 6 hours until 2 consecutive
PTT's are therapeutic. Then, PTT Daily.
-With each rate change, obtain PTT every 6 hours until 2 consecutive PTT's are
therapeutic. Then, PTT Daily.
Notify MD As Directed
Notify physician if: PTT is greater than or equal to 200.
11/14/24 20:15
Heparin [id number] Units/250 ml 25,000 units in 250 ml IV PER PROTOCOL
Weight to be used for heparin protocol in kilograms (kg):: 105
Protocol:: Cardiac Tx/Acute Coronary
PTT Goal Range to be used:: PTT 73 to 111 seconds
Order type:: Initial
INITIAL Infusion Dose (UNITS/KG/hr) & then follow protocol:: 12 units/kg/hr
Infusion Dose in UNITS/hr & then follow protocol (UNITS/hr):: 1,000
INFUSION RATE in mL/hr & then follow protocol (mL/hr):: 10
PTT less than or equal to 64 seconds:: Increase rate by 200 units/hr (+ 2 mL/hr)
PTT 64.1 to 72.9 seconds:: Increase rate by 100 units/hr (+ 1 mL/hr)
PTT 73 to 111 seconds:: Target Range. No change in rate.
PTT 111.1 to 130.9 seconds:: Decrease rate by 100 units/hr (- 1 mL/hr)
PTT 131 to 199.9 seconds:: HOLD for 1 hr. Then decrease rate by 200 units/hr (- 2 mL/hr)
PTT greater than or equal to 200 seconds:: HOLD for 2 hrs & Notify Provider. Then decrease by 200 units/hr (-
2 mL/hr)
Lab follow-up:: Each change, PTT q6h until 2 consecutive are therapeutic. Then PTT
daily.
11/14/24 20:26
Type+Screen Urgent
Magnesium Urgent
Comment: add on
PTT Urgent
Comment: Obtain baseline before beginning heparin infusion if not already collected
Prothrombin Time Urgent
Troponin I Q6H
11/14/24 21:12
Acetaminophen [Tylenol] 1,000 mg PO BID
Atorvastatin [Lipitor] 80 mg PO QPM
Docusate W/Senna [Senokot-S] 2 tablet PO BIDPRN PRN
HYDROmorphone [Dilaudid] 2 mg PO Q4HPRN PRN
Pantoprazole [Protonix] 40 mg PO BID
Prochlorperazine [Compazine] 10 mg PO Q6HPRN PRN
Sertraline HCl [Zoloft] 50 mg PO QPM
11/14/24 21:12
CARDIOLOGY CONSULT Routine
Consulting Provider: Asya Ochoa
Was physician already notified: Yes
Reason for consult: new afib rvr / decompensated chf
HF DIETARY CONSULT Routine
HF EDUCATOR CONSULT Routine
Comment:
Activity As Directed
Activity Level: As Tolerated
Intake/ Output As Directed
Frequency: Per unit guidelines
Comment: Strict
Patient Education As Directed
Type: CHF folder
Comment: give on admission. Document in Interdisciplinary Education record
Pneumatic Compression Sleeves As Directed
Type: Knee high
Sleep Apnea Assessment by RN As Directed
Comment:
Physician Instructions:
Vital Signs As Directed
Frequency: Other
Additional Instructions:: Q12 or per unit guidelines if more frequent.
Weight As Directed
Frequency: Daily
Type of Scale: Standing Scale
Comment: Daily morning weight. If unable to stand, use balanced bed scale.
Weight As Directed
Frequency: Once
Type of Scale: Standing Scale
Comment: Upon Admission. If unable to stand, use balanced bed scale.
Pulse Ox/cont/shift [RESP] Routine
Quantity: 1
Special Instructions: Daily pulse oximetry at rest. If greater than 92% at rest also obtain pulse oximetry
while ambulating as tolerated.
Pt Eval And Treat Routine
Activity Level: As Tolerated
DX Deep Vein Thrombosis Video Routine
11/14/24 21:30
Morphine Sulfate Extended Rel. [Ms Contin (Extended Release)] 30 mg PO BID
11/14/24 21:38
Ondansetron HCl [Zofran] 8 mg PO Q8HPRN PRN
11/14/24 22:00
Calcium Carbonate/Vitamin D3 [Oscal 500 + D] 1,000 mg PO BID
Metoprolol Xl [Toprol Xl] 50 mg PO BID
Prednisone [Deltasone] 5 mg PO BID
11/15/24 02:15
Troponin I Q6H
11/15/24 06:00
Basic Metabolic Panel IN AM
Complete Blood Count/No Diff IN AM
Magnesium IN AM
PTT IN AM
Prothrombin Time IN AM
TSH Reflex To Free T4 IN AM
11/15/24 08:00
Amlodipine [Norvasc] 2.5 mg PO DAILY
Clopidogrel Bisulfate [Plavix] 75 mg PO DAILY
Furosemide [Lasix] 40 mg IV DAILY
Multivitamin [Theragran] 1 tablet PO DAILY
Polyethylene Glycol Powder [Miralax] 17 grams PO DAILY
11/16/24 06:00
Basic Metabolic Panel IN AM
Complete Blood Count/No Diff Q2D
Comment: Notify if platelet count is <130,000 or decreases by 50% from baseline
Prothrombin Time IN AM
11/16/24 11:00
DC Protocol for Telemetry ONCE
11/17/24 06:00
Basic Metabolic Panel IN AM
Prothrombin Time IN AM
11/18/24 06:00
Complete Blood Count/No Diff Q2D
Comment: Notify MD if platelet count is <130,000 or decreases by 50% from baseline
11/20/24 06:00
Complete Blood Count/No Diff Q2D
Comment: Notify MD if platelet count is <130,000 or decreases by 50% from baseline
11/22/24 06:00
Complete Blood Count/No Diff Q2D
Comment: Notify MD if platelet count is <130,000 or decreases by 50% from baseline
11/24/24 06:00
Complete Blood Count/No Diff Q2D
Comment: Notify MD if platelet count is <130,000 or decreases by 50% from baseline
11/26/24 06:00
Complete Blood Count/No Diff Q2D
Comment: Notify MD if platelet count is <130,000 or decreases by 50% from baseline
11/28/24 06:00
Complete Blood Count/No Diff Q2D
Comment: Notify MD if platelet count is <130,000 or decreases by 50% from baseline
11/30/24 06:00
Complete Blood Count/No Diff Q2D
Comment: Notify MD if platelet count is <130,000 or decreases by 50% from baseline
Abnormal Lab Results
11/14/24
16:21
WBC 19.2 H 10^3/uL
(4.8-10.8)
RBC 4.43 L 10^6/uL
(4.70-6.10)
Hgb 11.8 L g/dL
(13.0-18.0)
Hct 37.7 L %
(39.0-52.0)
MCH 26.6 L pg
(27.0-31.0)
MCHC 31.3 L g/dL
(33.0-37.0)
RDW 22.3 H %
(11.5-14.5)
Plt Count 418 H D 10^3/uL
(130-400)
Abs Immat Gran (auto) 0.2 H 10^3/uL
(0-0.05)
Absolute Neuts (auto) 17.0 H 10^3/uL
(1.4-6.5)
Absolute Lymphs (auto) 0.8 L 10^3/uL
(1.2-3.4)
Absolute Monos (auto) 1.1 H 10^3/uL
(0.1-0.6)
Immature Gran % 1.0 H %
(0-0.5)
Neutrophils % 88.2 H %
(42.2-75.2)
Lymphocytes % 4.3 L %
(20.5-51.1)
Carbon Dioxide 31 H mmol/L
(22-30)
BUN 26 H mg/dl
(9-20)
Glucose 167 H mg/dl
(70-99)
Alkaline Phosphatase 127 H U/L
(38-126)
Troponin I 0.086 H* ng/ml
11/14/24 16:21
11/14/24 16:21
Vital Signs
Initial and Last Documented VS:
Initial Vital Signs
Pulse Resp Pulse Ox
123 20 97
11/14/24 16:09 11/14/24 16:09 11/14/24 16:09
Last Documented Vital Signs
Pulse Resp BP Pulse Ox
123 17 126/77 96
11/14/24 22:03 11/14/24 20:00 11/14/24 22:03 11/14/24 20:00
<Sreekanth Mane PA-C - Last Filed: 11/14/24 22:28>
MDM/Problems Addressed
MDM/Problems Addressed:
Presentation compatible with acute decompensated CHF secondary to rapid atrial fibrillation. His rates are mildly elevated between 110 and 120will treat with IV metoprolol and furosemide, will admit for further medical workup
<Sreekanth Mane PA-C - Last Filed: 11/14/24 22:28>
*Critical Care Note
Total Time (30-74mins, 75-104mins- exclusive of procedures): Not Applicable
ED Attending Note
<Sreekanth Mane PA-C - Last Filed: 11/14/24 22:28>
-
Portions of this chart may have been created with voice recognition software.� Occasional wrong word or��sound alike� substitutions may have occurred due to the inherent limitations of voice recognition software.
<Hossein Mejia DO - Last Filed: 11/14/24 19:40>
ED Attending Note
Patient seen and examined by attending physician: Yes
I performed the substantive portion of visit, reviewed & personally made and approve the management plan that is documented in note by myself or JAMES.: Yes
ED Attending Note:
Seen with PA examined dependently acute on chronic shortness of breath tachycardia history of pulmonary fibrosis,
Discharge Plan
Departure
Patient Disposition: Admit
Date of Disposition: 11/14/24
Time of Disposition: 19:17
Presentation/result/management discussed w/ accepting MD/DO: Hospitalist
Discharge Problem:
Atrial fibrillation, new onset, Acute CHF
Interventions
Interventions:
*Risk Screen - Suicide Last Done: 11/14/24 22:14
*General Assessment Last Done: 11/14/24 16:09
*Neglect/Abuse Screening Last Done: 11/14/24 16:09
*ED- Fall Risk Assessment Last Done: 11/14/24 21:06
*ED COVID-19 Vaccine History Last Done: 11/14/24 16:30
*Nursing Disposition Last Done: 11/14/24 21:06
ED- Cardiac Assessment Last Done: 11/14/24 16:30
ED- Pulmonary Assessment Last Done: 11/14/24 16:30
Discharge Date and Time
Discharge Date/Time: 11/14/24 21:13
--- NOTE | 2024-11-14 19:20 | HPS.HSE ---
Family Physician
-
Family Physician: Mauro Cervantes
Chief Complaint
-
chest tightness/SOB.
History of Present Illness
84yo M with PMH CAD s/p stent (05/2024), HFpEF (TTE 06/11/24 wtih EF 60-65%, Mod concentric LVH, Aortic sclerosis without stenosis) on 40mg PO lasix daily, HTN/HLD, Chronic Hypoxic Resp Failure on 3LNC, Rheumatic Heart Disease, Metastatic Prostate
Ca/Chronic Pain presents to ER for SOB. ER notes chest tightness however pt denies. He states he has been having worsening dyspnea for months but very severe today when getting up out of chair to ambulate to BR. Endorses mild white productive cough.
Denies F/C/diaphoresis. States he placed a pulxe oximeter on at home and noticed sat in 80s prompting ER evaluation. Denies sick contacts, chest pain, palps, wheezing, abd pain, n/v/d/c, dysuria, bloody or black stools, calf or leg pain. Pt does
report hx of GIB bleeding after initial aspirin/plavix follow stent. He was taken off aspirin with no further bleeding since June. Last Chemotherapy 3 weeks ago. Was due today but canceled 2/2 pt acuity.
ER course: Pt presents with HR 123, BP� 148/82, RR 26, other V.S.S.� WBC 19.2K, Hgb 11.8 g/dL, PLT 418K, Na 142, BUN/Cr 26/0.7, BG 167, LFTs wnl, HS Trop 0.086, BNP 4740. COVID (-). Flu (-). CXR b/l vascular congestion.�S/P 40mg IV lasix and 5mg IV
lopressor.�
Pulm: Jiminez
Cardio: Raul
Onc: Yesenia
Urology: Andrea
Medical History
Past Medical History
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
Metastatic Prostate Ca)
Past Surgical History: Reports Other (Coronary Stentx2, Prostatectomy (2003), B/L Inguinal Hernia Repair, B/L THR)
Social History
Tobacco: Non-smoker
Alcohol: None
Drug: None
Personal:
Living: Alone
Family History
Family History: Other (Mother with pancreatic Ca. Brother wtih Prostate Ca. Sister with Breast Ca. )
Allergies / Home Medications
Allergies reflects when Allergies were last updated in [employer].
Home Medications with original date entered in [employer]
Allergy/Medication List:
Allergies
Allergy/AdvReac Type Severity Reaction Status Date / Time
tetanus toxoid, adsorbed Allergy Hives Verified 11/14/24 16:19
Home Medications
furosemide 20 mg tablet 40 mg PO DAILY Fluid Retention/Swelling 04/26/23
atorvastatin 80 mg tablet 80 mg PO QPM #30 tabs 06/19/24
clopidogrel 75 mg tablet 75 mg PO DAILY #90 tabs 06/19/24
metoprolol succinate 25 mg tablet,extended release 24 hr 25 mg PO BID #60 tabs 06/19/24
polyethylene glycol 3350 17 gram oral powder packet 17 g PO DAILY #30 ea 06/19/24
acetaminophen 500 mg tablet (Tylenol Extra Strength) 1,000 mg PO BID 07/29/24
therapeutic multivitamin 1 tab PO DAILY Supplement 07/29/24
ondansetron HCl 8 mg tablet 8 mg PO Q8HPRN PRN nausea 08/18/24
prednisone 10 mg tablet 5 mg PO BID INFLAMMATION 08/18/24
prochlorperazine maleate 10 mg tablet 10 mg PO Q6HPRN PRN nausea 08/18/24
sertraline 50 mg tablet 50 mg PO QPM Mental Health/Anxiety ##0 08/18/24
amlodipine 2.5 mg tablet 2.5 mg PO DAILY #0 tabs 08/22/24
pantoprazole 40 mg tablet,delayed release 40 mg PO BID 30 days #60 tabs 08/22/24
calcium 500 mg (as carbonate)-vitamin D3 10 mcg (400 unit) tablet (Calcium 500 + D) 2 tab PO BID 11/14/24
hydromorphone 2 mg tablet 2 mg PO Q4HPRN PRN Breakthrough pain 11/14/24
morphine 30 mg immediate release tablet 30 mg PO BID 11/14/24
sennosides 8.6 mg-docusate sodium 50 mg tablet 2 tab PO BIDPRN PRN constipation 11/14/24
Review of Systems
-
A 12 point ROS was completed and negative except as noted: Yes
Physical Exam
Vital Signs
Vital Signs
Pulse Resp BP Pulse Ox
121 20 137/81 96
11/14/24 19:05 11/14/24 19:00 11/14/24 19:05 11/14/24 19:00
Physical Exam
General: Well Developed, Well Nourished, Morbidly Obese and Other (Mild conversational dyspnea. )
HEENT: NormoCephalic, Moist mucous membranes, Atraumatic, PERRLA and Oxygen
Respiratory: Other (Crackles b/l lung love. Mild accessory muscle use. )
Cardiac: S1/S2, Irregular Rhythm and Tachycardia; No Murmur
GI: Soft, Non Tender, Non Distended and Normal Bowel Sounds
Genito-urinary: No costovertebral tender; No Ballard
Musculoskeletal: No Clubbing, No Cyanosis and Other (Trace B/L LE edema)
Neuro: Awake, Alert, Oriented and AO x 3
Hematologic/Lymphatic: No Lymphadenopathy
Psych: Calm
Laboratory Results
-
11/14/24 16:21
11/14/24 16:21
Laboratory Results
Total Bilirubin 0.6 mg/dl (0.2-1.3) 11/14/24 16:21
AST 40 U/L (17-59) 11/14/24 16:21
ALT 46 U/L (0-50) 11/14/24 16:21
Alkaline Phosphatase 127 U/L (38-126) H 11/14/24 16:21
Troponin I 0.086 ng/ml H* 11/14/24 16:21
Data Reviewed
-
Diagnostic Radiology: Image Personally Visualized and interpreted
CT Scan: Image Personally Visualized and interpreted
Medical Tests (Nuc Med, Echo, EKG etc): Image Personally Visualized and interpreted (Afib RVR @ 136 bpm, Q-waves V1-V5, QTC 481ms. Afib replaced NSR from 07/2024. )
Lab Data: Labs Reviewed by me
Impression/Plan
-
New Onset Atrial Fibrillation RVR
- New onset afib on presentation, HR 123.
- Afib RVR @ 136 bpm, Q-waves V1-V5, QTC 481ms. Afib replaced NSR from 07/2024.�
- Pt did under go CT PE study which was negative months ago, less likely PE etiology
- K 4.0. Check mag and replete accordingly
- Check TSH
- S/P 5mg IV lopressor in ER. Change Metoprolol Succinate from 25mg BID to 50mg BID
- Case D/W Cardio - Will heparinize no bolus given high thromboembolic risk. Also note bleed risk given 07/2024 GIB (on BID protonix)
- Cardio: Raul
Acute on Chronic HFpEF
- Presents tachypneic, sat reported 80s at home on home 3LNC, BNP 4740, CXR wtih b/l vascular congestoin
- Likely decompensation in setting of new afib
- COVID/FLU (-).
- S/P 40 mg IV lasix daily. hold home oral lasix and continue 40mg IV daily. Trend I&O and Daily Wts
- Last TTE 06/11/24 wtih EF 60-65%, Mod concentric LVH, Aortic sclerosis without stenosis; defer repeat to cardio recs
- GDMT: BB
Acute/Chronic Hypoxic Resp Failure
- Reported sat 80% on home, Presents on 15L NRB
- CXR as above
- Wean oxygen to home 3LNC; Goal SPO2 > 92%
- Continue IS and prn nebs.
- Pulm: Jiminez
Elevated Trop / CAD s/p stent (05/2024) / HTN/HLD
- HS Trop 0.086. No chest pain.
- S/P stents x2 (05/2024)
- EKG Afib RVR @ 136 bpm, Q-waves V1-V5, QTC 481ms. Afib replaced NSR from 07/2024.�
- Trend per PRANEETH protocool.
- Continue plavix/statin
- A1C 6.5% 05/2024. LDL 78 08/2024.
- Continue plavix/statin, amlodipine, metoprolol (increased dose)
- Lasix changed to IV as per #2
- Cardio consult.
Metastatic Prostate Ca / Chronic Pain
- Last Chemotherapy 3 weeks ago, was due today but skipped 2/2 acuity
- Continue home dilaudid, mscontin 30mg BID, Prednisone 5mg BID
- Consider oncology consult.
- Onc: Yesenia
- Urology: Mendez
Leukocytosis - Chronic. Likely 2/2 prednisone vs tumor burden. Afebrile. Nontoxic appearing.
Hx GIB - Check stool occult for completeness. Continue BID protonix.
Diet: Cardiac
DVT Ppx: Heparin gtt
Code Status: Full Code, confirmed with patient at bedside.
[2024-11-14 20:00] VITALS: BP 120/65
[2024-11-14] MEDS: HEPARIN 25000 UNITS/250 ML IV (20:28)
[2024-11-14 20:41] LABS: INR 1.02; PT 13.9 Sec (11.4-14.6)
[2024-11-14 20:42] LABS: APTT 29.3 Sec (23.4-35.0)
[2024-11-14 20:45] LABS: Magnesium 1.9 mg/dl (1.6-2.3)
[2024-11-14 20:59] LABS: Troponin I 0.087 ng/ml
--- NOTE | 2024-11-14 21:55 | PTCARENOTE ---
Patient received from ED via stretcher w/ Heparin gtt infusing 10ml/hr through LFA IV. Patient admitted w/ new onset Afib/ RVR, CHF. Telemetry order> Afib on the monitor HR 100-120s (strip placed in chart) Afebrile, RR 18, BP 126/77, pox 97% 6LNC.
No c/o CP, SOB, pain. Patient AAOx3. Heavy assist of 2 for a stand to pivot from stretcher to bed. Patient w/ large loose incontinent stool, normally continent. States that he takes a daily laxative. PMH and medications reviewed by this RN and
patient. Patient states that he straight caths self Q6H. Per documentation, patient straight cath in ED for 420ml. Plan of care discussed with patient. Patient oriented to room. Call guzman within reach.
[2024-11-14] MEDS: MAGNESIUM OXIDE 500 MG PO (22:00)
[2024-11-14] MEDS: DELTASONE 5 MG PO (22:03)
[2024-11-14] MEDS: TOPROL XL 50 MG PO (22:03)
[2024-11-14] MEDS: OSCAL 500 + D 1000 MG PO (22:03)
[2024-11-14] MEDS: MS CONTIN (EXTENDED RELEASE) 30 MG PO (22:03)
[2024-11-14] MEDS: LIPITOR 80 MG PO (22:03)
[2024-11-14] MEDS: TYLENOL 1000 MG PO (22:03)
[2024-11-14] MEDS: PROTONIX 40 MG PO (22:03)
[2024-11-14] MEDS: ZOLOFT 50 MG PO (22:03)
[2024-11-14 22:19] VITALS: BMI 29.7
[2024-11-14 22:45] VITALS: BP 126/77
[2024-11-14 23:00] VITALS: BP 130/76
[2024-11-15 03:00] VITALS: BP 123/69
[2024-11-15 03:04] LABS: Hematocrit 35.4 % (39.0-52.0); Hemoglobin 11.1 g/dL (13.0-18.0); Mean Corp Hgb Conc. 31.4 g/dL (33.0-37.0); Mean Corpuscular Hgb 26.8 pg (27.0-31.0); Mean Corpuscular Volume 85.5 fL (80.0-94.0); Mean Platelet Volume 9.2 fL (7.4-10.4); Platelet Count 359 10^3/uL (130-400); Red Blood Cell Count 4.14 10^6/uL (4.70-6.10); Red Cell Dist. Width 22.2 % (11.5-14.5); White Blood Cell Count 16.9 10^3/uL (4.8-10.8)
[2024-11-15 03:11] LABS: INR 1.07; PT 14.5 Sec (11.4-14.6)
[2024-11-15 03:12] LABS: APTT 45.3 Sec (23.4-35.0); Blood Urea Nitrogen 31 mg/dl (9-20); Calcium 8.5 mg/dl (8.4-10.2); Carbon Dioxide 25 mmol/L (22-30); Chloride 107 mmol/L (98-107); Estimated Creatinine Clearance 108 ml/min; Glucose 156 mg/dl (70-99); Magnesium 2.1 mg/dl (1.6-2.3); Potassium 4.1 mmol/L (3.5-5.1); Sodium 140 mmol/L (135-145); eGFR > 60.00
[2024-11-15 03:26] LABS: Troponin I 0.096 ng/ml
[2024-11-15 03:53] LABS: TSH Reflex To Free T4 1.04 uIU/ml (0.47-4.68)
--- NOTE | 2024-11-15 04:52 | PTCARENOTE ---
Bassem LOG DATA TECHNICIAN notified of 0246 Trop level 0.096 (0.087). Pt does not c/o CP, SOB. Trop schedule Q6H.
[2024-11-15 05:26] VITALS: BMI 29.5
[2024-11-15] MEDS: MS CONTIN (EXTENDED RELEASE) 30 MG PO ×2 (07:38→20:00)
[2024-11-15] MEDS: DELTASONE 5 MG PO ×2 (07:38→20:01)
[2024-11-15] MEDS: NORVASC 2.5 MG PO (07:38)
[2024-11-15] MEDS: PLAVIX 75 MG PO (07:38)
[2024-11-15] MEDS: MIRALAX 17 GRAMS PO (07:38)
[2024-11-15] MEDS: THERAGRAN 1 TABLET PO (07:38)
[2024-11-15] MEDS: TOPROL XL 50 MG PO ×2 (07:38→20:00)
[2024-11-15] MEDS: OSCAL 500 + D 1000 MG PO ×2 (07:38→20:01)
[2024-11-15] MEDS: PROTONIX 40 MG PO ×2 (07:38→20:00)
[2024-11-15] MEDS: LASIX 40 MG IV (07:39)
[2024-11-15] MEDS: TYLENOL 1000 MG PO ×2 (07:39→20:00)
[2024-11-15 07:46] VITALS: BP 140/78
--- NOTE | 2024-11-15 08:31 | VNURNOTE ---
Chart reviewed. Patient is current with [facility] nursing, PT, OT, QUARTER SUPERVISOR. Will continue to follow hospital course and DC plans.
[2024-11-15 09:27] LABS: APTT 57.1 Sec (23.4-35.0)
[2024-11-15 09:48] LABS: Troponin I 0.089 ng/ml
--- NOTE | 2024-11-15 10:33 | CON.CAR ---
Addendum entered and electronically signed by Christiano Torres DO 11/15/24 15:26:
I saw and examined the patient.
The Electric Blanket Wirer's note was reviewed and I agree with the note.
Comment:
Plan:
Status post shortness of breath and found to have new onset atrial fibrillation with heart failure.
Continue IV diuresis.
Check limited echo to reevaluate left ventricular systolic function in the setting of new onset atrial fibrillation and heart failure.
Discussed atrial fibrillation with patient. Continue metoprolol which was increased for better rate control. Continue rate control strategy for now given ongoing treatments for prostate cancer as well as monitor response to anticoagulation. If he
tolerates anticoagulation, may consider BLADIMIR/cardioversion in the future.
Discussed stroke prophylaxis with hematology/oncology Dr. Ocasio. Given his elevated bleeding risk associated with GI bleeding as well as his bleeding risk associated with treatments for metastatic prostate cancer which are ongoing and being
considered, monotherapy with anticoagulation is recommended. Therefore would stop Plavix and start Eliquis. He can stop IV heparin once on Eliquis. Patient understands his bleeding risk versus stroke risk and cardiac risk.
Continue medical therapy of non-AR troponin, await echo
Discussed with hematology/oncology and family at bedside.
Original Note:
Consultation
Consultation Request
Date/Time Consultation Requested: 11/14/24 at 2112
Date/Time Consultation Performed: 11/15/24 at 1030
Requesting Provider: Dr. Coates
Performing Provider: Dr. Torres
Reason for Consultation: Chest pain, new Afib, CHF
Medical History
-
History of Present Illness:
Patient came to [facility] ER last night with chest pain, shortness of breath and was admitted with new A-fib with RVR and CHF and cardiology is now consulted. Patient was seen admitted to 06/11/24 until 06/19/24 with chest pain and had LAD PCI as
outlined above. Despite PCI that admission the patient continued with chest pain and was seen by oncology for metastatic prostate cancer with bony metastasis pain that was treated with radiation therapy prior to beginning chemotherapy. He seemed to
do better for a while and then was admitted again but this time with GIB 07/2024 at which time we decreased his regimen from aspirin and Plavix to Plavix alone. Patient says that he started to have episodes of intermittent SOB again and was getting
frustrated because it seemed like no one could figure out what was going on, so when he had symptoms starting a day and a half ago he stated home rather than seeking help right away. When he came to the ER he was found to be in A-fib with RVR and
evidence of acute HF. He is chronically on oxygen at 3 L NC, but was requiring NRB initially. He says he actually feels relieved that he may have an answer for why he has been having the symptoms and overall feels a bit better since admission.
PMH:
CAD
s/p 2.25 mm and 2.5 mm Medtronic Prosper THOMAS to distal to apical LAD 06/12/24
EF 37% by Lexiscan mibi 05/21/24, but 60-65% by echo 06/11/24
Metastatic prostate cancer
Hyperlipidemia, LDL 195
Hyperglycemia, HgbA1c 6.5%
Past Medical History
Past Medical History: Other (in HPI)
Past Surgical History: Cardiac (LAD PCI 06/12/24), Orthopedic and Urological (prostatectomy)
Social History
Tobacco: Non-Smoker
Alcohol: None
Drug: None
Personal: Partner
Living: With Family
Family History
Family History: Cancer
Allergies / Home Medications
Allergy/AdvReac Type Severity Reaction Status Date / Time
tetanus toxoid, adsorbed Allergy Hives Verified 11/14/24 16:19
�Medication �Instructions �Recorded �Confirmed �Type
furosemide 20 mg tablet 40 mg PO DAILY Fluid 04/26/23 11/14/24 History
Retention/Swelling
atorvastatin 80 mg tablet 80 mg PO QPM #30 tabs 06/19/24 11/14/24 Rx
clopidogrel 75 mg tablet 75 mg PO DAILY #90 tabs 06/19/24 11/14/24 Rx
metoprolol succinate 25 mg 25 mg PO BID #60 tabs 06/19/24 11/14/24 Rx
tablet,extended release 24 hr
polyethylene glycol 3350 17 gram 17 g PO DAILY #30 ea 06/19/24 11/14/24 Rx
oral powder packet
acetaminophen 500 mg tablet 1,000 mg PO BID 07/29/24 11/14/24 History
(Tylenol Extra Strength)
therapeutic multivitamin 1 tab PO DAILY Supplement 07/29/24 11/14/24 History
ondansetron HCl 8 mg tablet 8 mg PO Q8HPRN PRN nausea 08/18/24 11/14/24 History
prednisone 10 mg tablet 5 mg PO BID INFLAMMATION 08/18/24 11/14/24 History
prochlorperazine maleate 10 mg 10 mg PO Q6HPRN PRN nausea 08/18/24 11/14/24 History
tablet
sertraline 50 mg tablet 50 mg PO QPM Mental Health/Anxiety 08/18/24 11/14/24 History
##0
amlodipine 2.5 mg tablet 2.5 mg PO DAILY #0 tabs 08/22/24 11/14/24 Rx
pantoprazole 40 mg tablet,delayed 40 mg PO BID 30 days #60 tabs 08/22/24 11/14/24 Rx
release
calcium 500 mg (as 2 tab PO BID 11/14/24 11/14/24 History
carbonate)-vitamin D3 10 mcg (400
unit) tablet (Calcium 500 + D)
hydromorphone 2 mg tablet 2 mg PO Q4HPRN PRN Breakthrough 11/14/24 11/14/24 History
pain
morphine 30 mg immediate release 30 mg PO BID 11/14/24 11/14/24 History
tablet
sennosides 8.6 mg-docusate sodium 2 tab PO BIDPRN PRN constipation 11/14/24 11/14/24 History
50 mg tablet
Review of Systems
-
History Source: Patient and Family
All other systems: Negative unless noted
Physical Exam
Vital Signs
Temp Pulse Resp BP Pulse Ox
98.0 F 93 17 140/78 95
11/15/24 07:46 11/15/24 07:46 11/15/24 07:46 11/15/24 07:46 11/15/24 07:46
GEN: No distress, awake, alert, oriented x3
HEENT: supple, anicteric, mmm
LUNGS: 3 L NC. Bibasilar rales and slight exp wheeze
CV: SR on tele. Reg, S1/S2, no murmur
EXT: Trace B/L LE edema
NEURO: Gross non-focal
SKIN: Warm, dry, no rash
Lab Results
11/15/24 02:46
11/15/24 02:46
Troponin I 0.089 ng/ml H* 11/15/24 08:59
Uie-K-Iomqppvpglr Pept 4740 pg/ml 11/14/24 16:21
Impression / Plan
-
PCP: Dr. Cervantes
Cardiology: Dr. Carter
Impression:
Admitted with A-fib, chest pain and CHF 11/14/2024
Acute HFpEF
Newly diagnosed A-fib with RVR
Elevated troponin
Chest pain
CAD
s/p 2.25 mm and 2.5 mm Medtronic Prosper THOMAS to distal to apical LAD 06/12/24
EF 37% by Lexiscan mibi 05/21/24, but 60-65% by echo 06/11/24
Metastatic prostate cancer
Hyperlipidemia, LDL 195
Hyperglycemia, HgbA1c 6.5%
Lexiscan nuclear stress test 05/21/2024: Myocardial perfusion imaging without definite evidence of scan ischemia or scar, inferior soft tissue attenuation artifact present, EF 39%
Echo 04/01/23: Normal BiV size and function without wall motion abnormality, mild concentric LVH, no significant valve disease
Echo 06/11/24: EF 60 to 65%, no WMA, no MR, no /AR
Plan:
-Patient came to [facility] ER last night with chest pain, shortness of breath and was admitted with new A-fib with RVR and CHF and cardiology is now consulted. Patient was seen admitted to 06/11/24 until 06/19/24 with chest pain and had LAD PCI as
outlined above. Despite PCI that admission the patient continued with chest pain and was seen by oncology for metastatic prostate cancer with bony metastasis pain that was treated with radiation therapy prior to beginning chemotherapy. He seemed to
do better for a while and then was admitted again but this time with GIB 07/2024 at which time we decreased his regimen from aspirin and Plavix to Plavix alone. Patient says that he started to have episodes of intermittent SOB again and was getting
frustrated because it seemed like no one could figure out what was going on, so when he had symptoms starting a day and a half ago he stated home rather than seeking help right away. When he came to the ER he was found to be in A-fib with RVR and
evidence of acute HF. He is chronically on oxygen at 3 L NC, but was requiring NRB initially. He says he actually feels relieved that he may have an answer for why he has been having the symptoms and overall feels a bit better since admission.
-ECG reviewed by me in the ER last night is A-fib with RVR with nonspecific ST-T wave changes
-Telemetry reviewed by me this morning looks like patient is back in SR, recheck ECG, ordered by me.
-Reviewed with patient and his partner that if he has not converted back to SR we may want to consider possible BLADIMIR/CV, but this will depend on his respiratory status.
-Given new A-fib he is recommended OAC. As noted above he had admission for GIB back in 07/2024 and so we will give him Eliquis as monotherapy.
-Stop Heparin gtt now and start Eliquis 5 mg BID (age 84, Cre 0.6, wt 104.33 kg), ordered by me.
-Check echo, ordered by me
-Oxygenation has improved with heart rate and rhythm control efforts thus far and he is also being diuresed with Lasix 40 mg IV daily. Patient was taking Lasix 40 mg PO daily prior to admission
-Outpatient dose of Toprol XL 25mg BID has been continued
-Patient not chronically on WALTER/ARB/ARNI/aldosterone antagonist and will hold off while actively diuresing and pending echo results
-Patient is not chronically on SGLT2 inhibitor and will hold off for now as his acute HF is likely precipitated by rapid A-fib
-Troponin peaked at 0.096 and is likely nonischemic myocardial injury troponin elevation, but he did have CP on admission. Await echo results. For now we have stopped his Plavix in favor of Eliquis and we do not plan to restart aspirin due to risk
of bleeding.
-Outpatient dose of amlodipine 2.5 mg daily has been continued
-Outpatient dose of atorvastatin 80 mg daily has been continued
--- NOTE | 2024-11-15 10:40 | W.PN.HOSP.TC ---
Today's Communication/Plan
-
rate control
Cards eval
Onc eval -? prognosis
Assessment / Plan
Assessment / Plan
84-year-old man with shortness of breath. Patient states that since he had pneumonia 2 years ago he has never been himself. He has been having more shortness of breath since May to point where he really has a hard time now ambulating without
getting short of breath. Denies any chest pain he uses 3 L of oxygen at home
Chest x-ray-bony metastatic disease lungs are clear cardiomegaly with no evidence of pulmonary edema pleural effusion
PET scan 11/12/2024-widespread metastatic disease in the axial and appendicular skeleton some of which include skull base, cervical spine, thoracic spine, lumbar spine, bony pelvis, sternum, bilateral shoulders, proximal to mid right humerus,
proximal to mid left humerus, numerous foci in the proximal to mid right femur and left femur, scattered throughout the ribs
On examination patient is awake alert communicating
Cardiovascular system S1-S2 regular
Chest decreased breath sounds but clear
Abdomen soft and nontender
No pedal edema
# Fatigue and shortness of breath-likely secondary to atrial fibrillation with RVR
Could this be likely secondary to his metastatic prostate cancer as well
# Acute on chronic hypoxic respiratory failure
Patient was on 15 L of nonrebreather-now on nasal cannula
Currently on 4 L of oxygen
Wean as tolerated
Treat underlying conditions
# New onset atrial fibrillation with RVR
TSH-normal
Continue Lopressor
Heparin-needs long-term anticoagulation
History of GI bleed in July 2024-watch for any signs of bleeding
Cardiology evaluation
Rate control
# Acute on chronic HFpEF
BNP 4740
Chest x-ray without any evidence of vascular congestion
Decompensation likely secondary to A-fib
COVID and influenza negative
Continue Lasix 40 mg IV daily
Intake output charting and daily weights
Echo in May 2024 with EF 60 to 65%
Continue beta-yaneli
Consider SGLT2 inhibitors
# Leukocytosis-no pneumonia on chest x-ray. Check urinalysis. No fever noted. Follow count
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
# Elevated troponin-likely nonischemic myocardial injury secondary to above
# Coronary artery disease with history of stents in May 2024
Continue Plavix, statin, beta-yaneli
Stress test 05/21/2024-no evidence of ischemia or scar. Inferior soft tissue attenuation present.
# History of rheumatic heart disease
# Hypertension-continue beta-yaneli with increased dose. Hold off on amlodipine
# Diabetes with hemoglobin A1c 6.31 May 2024
Accu-Cheks and sliding scale coverage
# Hyperlipidemia-continue statin
# Metastatic prostate carcinoma-
Radical prostatectomy 2002
History of radiation treatment
On Chemo now and last chemotherapy was 3 weeks ago
Follows up with Dr. Mendez and Dr. Patterson
# Chronic pain-narcotic dependent-continue Dilaudid, MS Contin, prednisone
# History of GI bleed/diverticulosis versus radiation proctitis-continue PPI
# Depression-continue sertraline
# DVT prophylaxis-heparin drip
# Full code
Time spent over 50 min
While atrial fibrillation might be causing some of his symptoms I am wondering if metastatic prostate cancer is also contributing to most of his symptoms too. Recent PET scan reviewed by me. I will request oncology to weigh in. CODE STATUS will
also need to be readdressed given metastatic malignancy.
Anticipated Discharge: 24 - 48 hours
Subjective/Interval History
-
Date of Service: November 15, 2024
Objective Data
-
Labs:
Laboratory Results
11/15/24 11/15/24 11/15/24
02:46 02:46 08:59
WBC 16.9 H
Hgb 11.1 L
Hct 35.4 L
Plt Count 359
PT 14.5
INR 1.07
APTT 45.3 H Cancelled 57.1 H
Sodium 140
Potassium 4.1
Chloride 107
Carbon Dioxide 25
BUN 31 H
Creatinine 0.6 L
Glucose 156 H
Calcium 8.5
11/15/24 11/15/24 11/15/24
09:33 12:00 18:00
WBC
Hgb
Hct
Plt Count
PT
INR
APTT Cancelled Cancelled Cancelled
Sodium
Potassium
Chloride
Carbon Dioxide
BUN
Creatinine
Glucose
Calcium
Vital Signs:
Vital Signs
Temp Pulse Resp BP Pulse Ox
98.0 F 93 17 140/78 95
11/15/24 07:46 11/15/24 07:46 11/15/24 07:46 11/15/24 07:46 11/15/24 07:46
I&O
11/14/24 11/15/24 11/16/24
06:59 06:59 06:59
Intake Total 480 / 480
Output Total 820 / 820
Balance -820 / -820 480 / 480
[2024-11-15 10:58] VITALS: BP 117/67
[2024-11-15] MEDS: MILK OF MAGNESIA 30 ML PO (11:18)
[2024-11-15] MEDS: COLACE 100 MG PO ×2 (11:18→20:00)
[2024-11-15] MEDS: SENOKOT 17.2 MG PO ×2 (11:18→20:00)
--- NOTE | 2024-11-15 11:43 | CON.ONC ---
Impression
Impression
Metastatic prostate carcinoma status post progression and second line
Intolerance to taxane
Coronary artery disease status post stents approximately 6 months ago
HFpEF
Atrial fibrillation new onset
Plan
Plan
Unlikely to tolerate additional Taxotere with the current declining performance status
Pluvicto or Jevtana in the future both of which which can be associated with thrombocytopenia
Pluvicto has been arranged with [facility] on 12/04
Would avoid dual anticoagulation in favor of Eliquis 5 mg twice daily for atrial fibrillation and discontinue antiplatelet therapy discussed with cardiology
Prognosis is guarded having failed previous treatment prognosis is worsening expect survival of 2 to 3 years pending response and ability to receive additional therapies
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
Patient History
History of Present Illness
84yo M with [facility] CAD s/p stent (05/2024), HFpEF (TTE 06/11/24 wtih EF 60-65%, Mod concentric LVH, Aortic sclerosis without stenosis) on 40mg PO lasix daily, HTN/HLD, Chronic Hypoxic Resp Failure on 3LNC, Rheumatic Heart Disease, Metastatic Prostate
Ca/Chronic Pain and progressive shortness of breath. Patient initiated docetaxel chemotherapy and second progression in July but unfortunately has had difficulty tolerating this. Taxanes are associated with interstitial pneumonitis and it
appears that he will no longer be receiving chemo for declining performance status. He states he has been having worsening dyspnea for months but very severe on presentation. Denies F/C/diaphoresis. States he placed a pulse oximeter on at home and
noticed sat in 80s prompting ER evaluation. Denies sick contacts, chest pain, palps, wheezing, abd pain, n/v/d/c, dysuria, bloody or black stools, calf or leg pain. Pt does report hx of GIB bleeding after initial aspirin/plavix follow stent. He was
taken off aspirin with no further bleeding since June. Last Chemotherapy 3 weeks ago. Was due today but canceled 2/2 pt acuity.
Past-Medical/Surgical History
Past Medical History
CAD s/p stent (05/2024), HFpEF (TTE 06/11/24 wtih EF 60-65%, Mod concentric LVH, Aortic sclerosis without stenosis), HTN/HLD, Chronic Hypoxic Resp Failure on 3LNC, Rheumatic Heart Disease, Metastatic Prostate Ca)
Past Surgical History
Coronary Stentx2, Prostatectomy (2003), B/L Inguinal Hernia Repair, B/L THR)
Social History
Tobacco: Non-smoker
Alcohol: None
Drug: None
Personal:
Living: Alone
Patient Medication
�Medication �Instructions �Recorded �Confirmed �Last Taken �Type
furosemide 20 mg tablet 40 mg PO DAILY Fluid 04/26/23 11/14/24 11/14/24 History
Retention/Swelling
atorvastatin 80 mg tablet 80 mg PO QPM #30 tabs 06/19/24 11/14/24 11/13/24 Rx
clopidogrel 75 mg tablet 75 mg PO DAILY #90 tabs 06/19/24 11/14/24 11/14/24 Rx
metoprolol succinate 25 mg 25 mg PO BID #60 tabs 06/19/24 11/14/24 11/14/24 Rx
tablet,extended release 24 hr
polyethylene glycol 3350 17 gram 17 g PO DAILY #30 ea 06/19/24 11/14/24 11/14/24 Rx
oral powder packet
acetaminophen 500 mg tablet 1,000 mg PO BID 07/29/24 11/14/24 11/14/24 History
(Tylenol Extra Strength)
therapeutic multivitamin 1 tab PO DAILY Supplement 07/29/24 11/14/24 11/14/24 History
ondansetron HCl 8 mg tablet 8 mg PO Q8HPRN PRN nausea 08/18/24 11/14/24 Unknown History
prednisone 10 mg tablet 5 mg PO BID INFLAMMATION 08/18/24 11/14/24 11/14/24 History
prochlorperazine maleate 10 mg 10 mg PO Q6HPRN PRN nausea 08/18/24 11/14/24 Unknown History
tablet
sertraline 50 mg tablet 50 mg PO QPM Mental Health/Anxiety 08/18/24 11/14/24 11/13/24 History
##0
amlodipine 2.5 mg tablet 2.5 mg PO DAILY #0 tabs 08/22/24 11/14/24 11/14/24 Rx
pantoprazole 40 mg tablet,delayed 40 mg PO BID 30 days #60 tabs 08/22/24 11/14/24 11/14/24 Rx
release
calcium 500 mg (as 2 tab PO BID 11/14/24 11/14/24 11/14/24 History
carbonate)-vitamin D3 10 mcg (400
unit) tablet (Calcium 500 + D)
hydromorphone 2 mg tablet 2 mg PO Q4HPRN PRN Breakthrough 11/14/24 11/14/24 Unknown History
pain
morphine 30 mg immediate release 30 mg PO BID 11/14/24 11/14/24 11/14/24 History
tablet
sennosides 8.6 mg-docusate sodium 2 tab PO BIDPRN PRN constipation 11/14/24 11/14/24 Unknown History
50 mg tablet
Active Medications
Generic Name Dose Route Start Last Admin
Trade Name Freq PRN Reason Stop Dose Admin
Acetaminophen 1,000 mg 11/14/24 21:12 11/15/24 07:39
Acetaminophen 500 Mg Tablet PO 12/12/24 21:11 1,000 mg
BID DINAH Administration
Amlodipine Besylate 2.5 mg 11/15/24 08:00 11/15/24 07:38
Amlodipine 2.5 Mg Tablet PO 12/13/24 07:59 2.5 mg
DAILY DINAH Administration
Atorvastatin Calcium 80 mg 11/14/24 21:12 11/14/24 22:03
Atorvastatin (Lipitor) 80 Mg Tablet PO 12/12/24 21:11 80 mg
QPM DINAH Administration
Calcium/Vitamin D 1,000 mg 11/14/24 22:00 11/15/24 07:38
Calcium Carbonate 500 Mg/Vitamin D 5 Mcg (200 Units) Tablet PO 12/12/24 21:59 1,000 mg
BID DINAH Administration
Clopidogrel Bisulfate 75 mg 11/15/24 08:00 11/15/24 07:38
Clopidogrel 75 Mg Tablet PO 12/13/24 07:59 75 mg
DAILY DINAH Administration
Docusate Sodium 100 mg 11/15/24 11:00 11/15/24 11:18
Docusate Sodium 100 Mg Capsule PO 12/13/24 10:59 100 mg
BID DINAH Administration
Furosemide 40 mg 11/15/24 08:00 11/15/24 07:39
Furosemide 40 Mg (10 Mg/Ml) 4 Ml Vial IV 12/13/24 07:59 40 mg
DAILY DINAH Administration
Hydromorphone HCl 2 mg 11/14/24 21:12
Hydromorphone 2 Mg Tablet PO 11/28/24 21:11
Q4HPRN PRN
Breakthrough pain
Heparin Sodium 25,000 units in 250 mls @ 0 mls/hr 11/14/24 20:15 11/14/24 20:28
Heparin 11341 Units/250 Ml IV 250 mls
PER PROTOCOL DINAH Administration
Protocol
Per Protocol
Metoprolol Succinate 50 mg 11/14/24 22:00 11/15/24 07:38
Metoprolol 50 Mg Extended Release Tablet PO 12/12/24 21:59 50 mg
BID DINAH Administration
Morphine Sulfate 30 mg 11/14/24 21:30 11/15/24 07:38
Morphine 30 Mg Extended Release Tablet PO 11/28/24 21:29 30 mg
BID DINAH Administration
Multivitamins Therapeutic 1 tablet 11/15/24 08:00 11/15/24 07:38
Multivitamin Tablet PO 12/13/24 07:59 1 tablet
DAILY DINAH Administration
Ondansetron HCl 8 mg 11/14/24 21:38
Ondansetron 4 Mg Tablet PO 12/12/24 21:37
Q8HPRN PRN
nausea
Pantoprazole Sodium 40 mg 11/14/24 21:12 11/15/24 07:38
Pantoprazole 40 Mg Delayed Release Tablet PO 12/12/24 21:11 40 mg
BID DINAH Administration
Polyethylene Glycol 17 grams 11/15/24 08:00 11/15/24 07:38
Polyethylene Glycol Powder 17 Grams Packet PO 12/13/24 07:59 17 grams
DAILY DINAH Administration
Prednisone 5 mg 11/14/24 22:00 11/15/24 07:38
Prednisone 5 Mg Tablet PO 12/12/24 21:59 5 mg
BID DINAH Administration
Prochlorperazine Maleate 10 mg 11/14/24 21:12
Prochlorperazine 10 Mg Tablet PO 12/12/24 21:11
Q6HPRN PRN
nausea
Sennosides 17.2 mg 11/15/24 11:00 11/15/24 11:18
Sennosides (Senokot) 8.6 Mg Tablet PO 12/13/24 10:59 17.2 mg
BID DINAH Administration
Sertraline HCl 50 mg 11/14/24 21:12 11/14/24 22:03
Sertraline 50 Mg Tablet PO 12/12/24 21:11 50 mg
QPM DINAH Administration
Sodium Chloride 0 flush 11/14/24 22:00
Sodium Chloride 0.9% (Flush) Syringe IV 12/12/24 21:59
PER PROTOCOL DINAH
Review of Systems
-
12 point review of systems without additional complaints other than those reviewed in the HPI
Physical Exam
-
Physical Exam
General: Well Developed, Well Nourished, Morbidly Obese
HEENT: Moist mucous membranes, Atraumatic, PERRLA and Oxygen
Respiratory: Decreased in the bases with rales
Cardiac: S1/S2, Irregular Rhythm and Tachycardia; No Murmur
GI: Soft, Non Tender, Non Distended and Normal Bowel Sounds
Genito-urinary: No costovertebral tender; No Ballard
Musculoskeletal: No Clubbing, No Cyanosis and Other (Trace B/L LE edema)
Neuro: Awake, Alert, Oriented and AO x 3
Hematologic/Lymphatic: No Lymphadenopathy
Psych: Calm
Labs
Lab Results
WBC 16.9 10^3/uL (4.8-10.8) H 11/15/24 02:46
RBC 4.14 10^6/uL (4.70-6.10) L 11/15/24 02:46
Hgb 11.1 g/dL (13.0-18.0) L 11/15/24 02:46
Hct 35.4 % (39.0-52.0) L 11/15/24 02:46
MCV 85.5 fL (80.0-94.0) 11/15/24 02:46
MCH 26.8 pg (27.0-31.0) L 11/15/24 02:46
MCHC 31.4 g/dL (33.0-37.0) L 11/15/24 02:46
RDW 22.2 % (11.5-14.5) H 11/15/24 02:46
Plt Count 359 10^3/uL (130-400) 11/15/24 02:46
MPV 9.2 fL (7.4-10.4) 11/15/24 02:46
Abs Immat Gran (auto) 0.2 10^3/uL (0-0.05) H 11/14/24 16:21
Absolute Neuts (auto) 17.0 10^3/uL (1.4-6.5) H 11/14/24 16:21
Absolute Lymphs (auto) 0.8 10^3/uL (1.2-3.4) L 11/14/24 16:21
Absolute Monos (auto) 1.1 10^3/uL (0.1-0.6) H 11/14/24 16:21
Absolute Eos (auto) 0.1 10^3/uL (0-0.7) 11/14/24 16:21
Absolute Basos (auto) 0.1 10^3/uL (0-0.2) 11/14/24 16:21
Immature Gran % 1.0 % (0-0.5) H 11/14/24 16:21
Neutrophils % 88.2 % (42.2-75.2) H 11/14/24 16:21
Lymphocytes % 4.3 % (20.5-51.1) L 11/14/24 16:21
Monocytes % 5.5 % (1.7-9.3) 11/14/24 16:21
Eosinophils % 0.5 % (0-6) 11/14/24 16:21
Basophils % 0.5 % (0-2) 11/14/24 16:21
Creatinine 0.6 mg/dL (0.7-1.3) L 11/15/24 02:46
Vital Signs
Vital Signs
Temp Pulse Resp BP Pulse Ox
97.8 F 83 17 117/67 98
11/15/24 10:58 11/15/24 10:58 11/15/24 10:58 11/15/24 10:58 11/15/24 10:58
--- NOTE | 2024-11-15 14:14 | PTCARENOTE ---
Patient tachypneic and SOB with any exertion. Patient asked to sit forward in bed and RR 30, HR 102, 3L 95%. Patient states, 'I am not getting enough oxygen.' It took a few minutes for patient to recover. Patient states, 'I am too short of breath to
get OOB.' Spouse at bedside.
[2024-11-15 15:01] VITALS: BP 140/64
[2024-11-15 15:25] LABS: Troponin I 0.088 ng/ml
[2024-11-15] MEDS: LIPITOR 80 MG PO (17:05)
[2024-11-15] MEDS: ZOLOFT 50 MG PO (17:05)
--- NOTE | 2024-11-15 17:10 | CM ---
Alert awake oriented patient who lives with his SO Kaylee who lives in a 1 story home with 3 step to enter.He is independent in driving and in all activities of daily living.He was offered VN he requested resume [facility] Pt has wheelchair walker oxygen
with [facility] hx / No SNF history
[facility]
PCP DR Cervantes
PLAN Home with [facility]
[2024-11-15 18:08] LABS: Urine Albumin 2+ (Neg - Trace); Urine Bilirubin Negative (Negative); Urine Character Slightly Cloudy (Clear); Urine Color Yellow; Urine Glucose Negative (Negative); Urine Ketone Negative (Negative); Urine Leukocyte 2+ (Negative); Urine Nitrite Negative (Negative); Urine Occult Blood 3+ (Negative); Urine Specific Gravity 1.015 (<1.030); Urine Urobilinogen Negative (Neg - 1+)
[2024-11-15 18:25] LABS: Urine Bacteria Many (Negative); Urine Squamous Cell 0-2 /LPF (Few)
[2024-11-15 19:34] VITALS: BP 133/68
[2024-11-15] MEDS: ELIQUIS 5 MG PO (20:00)
[2024-11-15 21:21] LABS: Troponin I 0.084 ng/ml
[2024-11-15 23:42] VITALS: BP 126/64
[2024-11-16] VITALS (8 sets, daily range): BP systolic 115–158; BP diastolic 57–83; PULSE 74–79; O2SAT 96–97; BMI 29.6
[2024-11-16 06:31] LABS: INR 1.15; PT 15.2 Sec (11.4-14.6)
[2024-11-16 06:47] LABS: Blood Urea Nitrogen 30 mg/dl (9-20); Calcium 8.6 mg/dl (8.4-10.2); Carbon Dioxide 29 mmol/L (22-30); Chloride 106 mmol/L (98-107); Estimated Creatinine Clearance 108 ml/min; Glucose 131 mg/dl (70-99); Potassium 4.5 mmol/L (3.5-5.1); Sodium 139 mmol/L (135-145); eGFR > 60.00
[2024-11-16] MEDS: MS CONTIN (EXTENDED RELEASE) 30 MG PO ×2 (07:55→20:19)
[2024-11-16] MEDS: TOPROL XL 50 MG PO ×2 (07:55→20:16)
[2024-11-16] MEDS: SENOKOT 17.2 MG PO ×2 (07:55→20:15)
[2024-11-16] MEDS: LASIX 40 MG IV ×2 (07:56→16:31)
[2024-11-16] MEDS: PROTONIX 40 MG PO ×2 (07:56→20:17)
[2024-11-16] MEDS: DELTASONE 5 MG PO ×2 (07:56→20:20)
[2024-11-16] MEDS: TYLENOL 1000 MG PO ×2 (07:56→20:18)
[2024-11-16] MEDS: THERAGRAN 1 TABLET PO (07:56)
[2024-11-16] MEDS: ELIQUIS 5 MG PO ×2 (07:56→20:20)
[2024-11-16] MEDS: COLACE 100 MG PO ×2 (07:56→20:16)
[2024-11-16] MEDS: OSCAL 500 + D 1000 MG PO ×2 (07:56→20:19)
[2024-11-16] MEDS: MIRALAX 17 GRAMS PO (07:56)
--- NOTE | 2024-11-16 08:57 | W.PN.ONC2 ---
Documented by User: MELISSA Young 11/16/24 11:32
Today's Communication / Plan
-
.
Impression
Impression
Metastatic prostate carcinoma status post progression and second line
Intolerance to taxane
Coronary artery disease status post stents approximately 6 months ago
HFpEF
Atrial fibrillation new onset
Plan
Plan
Unlikely to tolerate additional Taxotere with the current declining performance status
Pluvicto or Jevtana in the future both of which which can be associated with thrombocytopenia
Pluvicto has been arranged with [facility] on 12/04
Plan for DOAC for AF noted
Subjective/Objective
Subjective
no new complaints
SOB working with PT
denies pain or bleeding
Vital Signs:
Vital Signs
Temp Pulse Resp BP Pulse Ox
98 F 79 14 121/67 96
11/16/24 07:58 11/16/24 07:58 11/16/24 07:58 11/16/24 07:58 11/16/24 07:58
Lab Results:
Laboratory Data
WBC 16.9 10^3/uL (4.8-10.8) H 11/15/24 02:46
Hgb 11.1 g/dL (13.0-18.0) L 11/15/24 02:46
Plt Count 359 10^3/uL (130-400) 11/15/24 02:46
PT 15.2 Sec (11.4-14.6) H 11/16/24 05:15
INR 1.15 11/16/24 05:15
APTT Cancelled 11/15/24 18:00
eGFR > 60.00 11/16/24 05:15
Physical Exam
General: Well Developed, Well Nourished, Morbidly Obese
HEENT: Moist mucous membranes, Atraumatic
Respiratory: Decreased in the bases with rales
Cardiac: S1/S2, Irregular Rhythm and Tachycardia; No Murmur
GI: Soft, Non Tender, Non Distended and Normal Bowel Sounds
Ext Trace B/L LE edema
Neuro: Awake, Alert, Oriented and AO x 3
Hematologic/Lymphatic: No Lymphadenopathy
Psych: Calm

Documented by User: Ruiz Schulte MD 11/16/24 13:01
Today's Communication / Plan
-
. Agree with plans as stated by nurse practitioner.
--- NOTE | 2024-11-16 10:46 | PTOTSP ---
Needs OT evaluation to assist with rehab placement.
--- NOTE | 2024-11-16 11:55 | W.PN.CARDCBS ---
Addendum entered and electronically signed by Leroy Bonilla MD 11/16/24 15:14:
I saw and examined the patient.
The Senior Accounts Payable Clerk's note was reviewed and I agree with the note.
Comment: Briefly, 84-year-old man presenting with A-fib RVR and acute heart failure with preserved ejection fraction which are new diagnosis for him
Given new home oxygen requirement would favor aggressive IV diuresis to see if O2 can be weaned down
Follow renal function, electrolytes and daily weights
Echo here with preserved LV function
Although he initially presented in A-fib he converted to sinus rhythm and is maintaining sinus rhythm by review of telemetry
Continue metoprolol for rate control and Eliquis for cardioembolic prophylaxis
Rest per Shruthi Adair
Original Note:
Today's Communication / Plan
-
increase IV lasix to BID
wean supp O2 as able
in SR. continue toprol, eliquis
ambulate/PT/OT
Impression / Plan
-
PCP: Dr. Cervantes
Cardiology: Dr. Carter
Impression:
Admitted with A-fib, chest pain and CHF 11/14/2024
Acute HFpEF
Newly diagnosed A-fib with RVR
Elevated troponin
Chest pain
CAD
s/p 2.25 mm and 2.5 mm [employer] [place] THOMAS to distal to apical LAD 06/12/24
EF 37% by Lexiscan mibi 05/21/24, but 60-65% by echo 06/11/24
Metastatic prostate cancer
Hyperlipidemia, LDL 195
Hyperglycemia, HgbA1c 6.5%
Lexiscan nuclear stress test 05/21/2024: Myocardial perfusion imaging without definite evidence of scan ischemia or scar, inferior soft tissue attenuation artifact present, EF 39%
Echo 04/01/23: Normal BiV size and function without wall motion abnormality, mild concentric LVH, no significant valve disease
Echo 06/11/24: EF 60 to 65%, no WMA, no MR, no /AR
ECHO 11/15/24: EF 55 to 60%, no regional wall motion abnormalities noted, moderate concentric LVH, no significant valvular disease
Plan:
- He presented in atrial fibrillation, however spontaneously converted to sinus rhythm. He remains in sinus rhythm on review of telemetry overnight. Continue outpatient Toprol
- Due to his metastatic prostate cancer, and history of GI bleeding 07/2024, he is felt to be at elevated bleeding risk. Discussed with oncology who favored stopping Plavix in favor of monotherapy with Eliquis. he is also not on asa to reduce risk
of bleeding
- Echo with results as above, reviewed with patient 11/16. EF preserved
- He remains with significant shortness of breath with minimal exertion. Will increase Lasix to 40 mg IV twice daily. Creatinine stable. Patient was taking Lasix 40 mg p.o. daily prior to admission
-He is chronically on 3 L supplemental oxygen as an outpatient, and is back to baseline O2 requirements this morning
-Patient is not chronically on SGLT2 inhibitor and will hold off for now as his acute HF is likely precipitated by rapid A-fib
-Troponin peaked at 0.096 and is likely nonischemic myocardial injury troponin elevation, but he did have CP on admission.
-Outpatient dose of amlodipine 2.5 mg daily has been continued
-Outpatient dose of atorvastatin 80 mg daily has been continued
- PT OT as able
PREADMIT DATA:
-Patient came to [facility] ER last night with chest pain, shortness of breath and was admitted with new A-fib with RVR and CHF and cardiology is now consulted. Patient was seen admitted to 06/11/24 until 06/19/24 with chest pain and had LAD PCI as
outlined above. Despite PCI that admission the patient continued with chest pain and was seen by oncology for metastatic prostate cancer with bony metastasis pain that was treated with radiation therapy prior to beginning chemotherapy. He seemed to
do better for a while and then was admitted again but this time with GIB 07/2024 at which time we decreased his regimen from aspirin and Plavix to Plavix alone. Patient says that he started to have episodes of intermittent SOB again and was getting
frustrated because it seemed like no one could figure out what was going on, so when he had symptoms starting a day and a half ago he stated home rather than seeking help right away. When he came to the ER he was found to be in A-fib with RVR and
evidence of acute HF. He is chronically on oxygen at 3 L NC, but was requiring NRB initially. He says he actually feels relieved that he may have an answer for why he has been having the symptoms and overall feels a bit better since admission.
Progress Note - Staff Trainer
Subjective
Date of Service: November 16, 2024
Remains with shortness of breath with exertion or significant conversation. No chest pain
Objective
Labs:
11/15/24 02:46
11/16/24 05:15
Labs
Hgb 11.1 g/dL (13.0-18.0) L 11/15/24 02:46
Hct 35.4 % (39.0-52.0) L 11/15/24 02:46
Plt Count 359 10^3/uL (130-400) 11/15/24 02:46
PT 15.2 Sec (11.4-14.6) H 11/16/24 05:15
INR 1.15 11/16/24 05:15
APTT Cancelled 11/15/24 18:00
Sodium 139 mmol/L (135-145) 11/16/24 05:15
Potassium 4.5 mmol/L (3.5-5.1) 11/16/24 05:15
BUN 30 mg/dl (9-20) H 11/16/24 05:15
Creatinine 0.6 mg/dL (0.7-1.3) L 11/16/24 05:15
Glucose 131 mg/dl (70-99) H 11/16/24 05:15
Troponins
11/14/24 11/14/24 11/15/24
16:21 20:26 02:46
Troponin I 0.086 H* 0.087 H* 0.096 H*
11/15/24 11/15/24 11/15/24
08:59 14:41 20:51
Troponin I 0.089 H* 0.088 H* 0.084 H*
Vital Signs and I&O:
Vital Signs
Temp Pulse Resp BP Pulse Ox
97.5 F 75 14 127/61 98
11/16/24 11:43 11/16/24 11:43 11/16/24 11:43 11/16/24 11:43 11/16/24 11:43
Vital Signs
Temp Pulse Resp BP Pulse Ox
97.5 F 75 14 127/61 98
11/16/24 11:43 11/16/24 11:43 11/16/24 11:43 11/16/24 11:43 11/16/24 11:43
Intake & Output
11/14/24 11/15/24 11/16/24 11/17/24
07:59 07:59 07:59 07:59
Intake Total 480 / 480 1200 / 1200
Output Total 820 / 820 2450 / 2450
Balance -340 / -340 -1250 / -1250
Physical Exam
Physical Exam
GEN: No distress, awake, alert, oriented x3. On supplemental O2
HEENT: supple, anicteric, mmm, EOMI
LUNGS: Crackles B/L bases, no wheezes
CV: Reg, S1/S2, no murmur
ABD: soft, BS+, NT/ND
EXT: No cyanosis, clubbing. trace edema of B/L LE
NEURO: Gross non-focal
SKIN: Warm, pink, dry. No rash
--- NOTE | 2024-11-16 14:24 | W.PN.HOSP.TC ---
Today's Communication/Plan
-
Continue IV Lasix
Rehab
Assessment / Plan
Assessment / Plan
84-year-old man with shortness of breath. Patient states that since he had pneumonia 2 years ago he has never been himself. He has been having more shortness of breath since May to point where he really has a hard time now ambulating without
getting short of breath. Denies any chest pain he uses 3 L of oxygen at home
Chest x-ray-bony metastatic disease lungs are clear cardiomegaly with no evidence of pulmonary edema pleural effusion
PET scan 11/12/2024-widespread metastatic disease in the axial and appendicular skeleton some of which include skull base, cervical spine, thoracic spine, lumbar spine, bony pelvis, sternum, bilateral shoulders, proximal to mid right humerus,
proximal to mid left humerus, numerous foci in the proximal to mid right femur and left femur, scattered throughout the ribs
On examination patient is awake alert communicating
Cardiovascular system S1-S2 regular
Chest decreased breath sounds but clear
Abdomen soft and nontender
No pedal edema
# Fatigue and shortness of breath-likely secondary to atrial fibrillation with RVR
Could this be likely secondary to his metastatic prostate cancer as well
# Acute on chronic hypoxic respiratory failure
Patient was on 15 L of nonrebreather-now on nasal cannula
Currently on 3 L of oxygen
Wean as tolerated
Treat underlying conditions
# New onset atrial fibrillation with RVR
TSH-normal
Continue Lopressor
Eliquis
History of GI bleed in July 2024-watch for any signs of bleeding
Cardiology evaluation
Currently in sinus rhythm
# Acute on chronic HFpEF
BNP 4740
Chest x-ray without any evidence of vascular congestion
Decompensation likely secondary to A-fib
COVID and influenza negative
Continue Lasix 40 mg IV BID
Intake output charting and daily weights
Echo in May 2024 with EF 60 to 65%
Continue beta-yaneli
Consider SGLT2 inhibitors
# Leukocytosis-no pneumonia on chest x-ray. Check urinalysis. No fever noted. Follow count
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
# Elevated troponin-likely nonischemic myocardial injury secondary to above
# Coronary artery disease with history of stents in May 2024
Continue , statin, beta-yaneli. Plavix discontinued when Eliquis started
Stress test 05/21/2024-no evidence of ischemia or scar. Inferior soft tissue attenuation present.
# History of rheumatic heart disease
# Hypertension-continue beta-yaneli with increased dose. Hold off on amlodipine
# Diabetes with hemoglobin A1c 6.31 May 2024
Accu-Cheks and sliding scale coverage
# Hyperlipidemia-continue statin
# Metastatic prostate carcinoma-
Radical prostatectomy 2002
History of radiation treatment
On Chemo now and last chemotherapy was 3 weeks ago Taxotere ( Not tolerating well)
Follows up with Dr. Mendez and Dr. Patterson
'Pluvicto or Jevtana in the future both of which which can be associated with thrombocytopenia .Pluvicto has been arranged with [facility] on 12/04' Per Heme
# Chronic pain-narcotic dependent-continue Dilaudid, MS Contin, prednisone
# History of GI bleed/diverticulosis versus radiation proctitis-continue PPI
# Depression-continue sertraline
# DVT prophylaxis-Eliquis
# Full code
Physical therapy evaluation noted. Patient needs rehab. Case management alerted
Left message for significant other
While atrial fibrillation might be causing some of his symptoms I am wondering if metastatic prostate cancer is also contributing to most of his symptoms too. Recent PET scan reviewed by me. I will request oncology to weigh in. CODE STATUS will
also need to be readdressed given metastatic malignancy.
Anticipated Discharge: Within 24 hours
Subjective/Interval History
-
Date of Service: November 16, 2024
Objective Data
-
Labs:
Laboratory Results
11/16/24
05:15
PT 15.2 H
INR 1.15
Sodium 139
Potassium 4.5
Chloride 106
Carbon Dioxide 29
BUN 30 H
Creatinine 0.6 L
Glucose 131 H
Calcium 8.6
Vital Signs:
Vital Signs
Temp Pulse Resp BP Pulse Ox
97.5 F 75 14 127/61 98
11/16/24 11:43 11/16/24 11:43 11/16/24 11:43 11/16/24 11:43 11/16/24 11:43
I&O
11/15/24 11/16/24 11/17/24
06:59 06:59 06:59
Intake Total 1680 / 1680
Output Total 820 / 820 2450 / 2450
Balance -820 / -820 -770 / -770
[2024-11-16] MEDS: LIPITOR 80 MG PO (17:37)
[2024-11-16] MEDS: ZOLOFT 50 MG PO (17:38)
--- NOTE | 2024-11-16 17:51 | CM ---
Spoke with pt and SO in room .
Reviewed PT OT evals which indicate SNF.
Referral placed for [facility] as requested .
Oxygen 3 liter Pox 98%.
PLAN To SNF after accepted
--- NOTE | 2024-11-17 00:03 | W.PN.UPDATE ---
Update Note
Progress Note Update
23:30 Pt noted to have rectal temp of 101.7, no fevers prior to this. Patient evaluated, no complaints of pain, does admit to chills earlier tonight prior to taking Tylenol. Rectal temp taken after administration of Tylenol at 1999. Patient
w/continued SOB on 3L NC (baseline). VSS BP 117/57 HR 83, Resp 18, 95% on 3L NC. Orders placed for BMP, CBC, UA w/reflex, Blood cx x 2, CXR, lactic acid, Flu and COVID. Patient states he is comfortable at this time. Awaiting lab results.
Labs resulted: WBC slightly increased to 17.8. Lactic 1.2. Flu A&B negative, COVID negative. CXR report pending. UA and bld cx pending.
[2024-11-17 01:05] LABS: Hematocrit 31.5 % (39.0-52.0); Hemoglobin 9.9 g/dL (13.0-18.0); Mean Corp Hgb Conc. 31.4 g/dL (33.0-37.0); Mean Corpuscular Hgb 26.5 pg (27.0-31.0); Mean Corpuscular Volume 84.5 fL (80.0-94.0); Mean Platelet Volume 9.2 fL (7.4-10.4); Platelet Count 379 10^3/uL (130-400); Red Blood Cell Count 3.73 10^6/uL (4.70-6.10); Red Cell Dist. Width 21.9 % (11.5-14.5); White Blood Cell Count 17.8 10^3/uL (4.8-10.8)
[2024-11-17 01:19] LABS: Blood Urea Nitrogen 30 mg/dl (9-20); Calcium 8.5 mg/dl (8.4-10.2); Carbon Dioxide 30 mmol/L (22-30); Chloride 104 mmol/L (98-107); Estimated Creatinine Clearance 93 ml/min; Glucose 158 mg/dl (70-99); Potassium 4.4 mmol/L (3.5-5.1); Sodium 138 mmol/L (135-145); eGFR > 60.00
[2024-11-17 01:28] LABS: Lactic Acid 1.2 mmol/L (0.7-2.0)
[2024-11-17 01:29] LABS: COVID-19 Antigen Negative (Negative)
[2024-11-17 03:35] VITALS: BP 131/79
[2024-11-17 07:46] VITALS: BP 104/65
[2024-11-17] MEDS: LASIX 40 MG IV ×2 (09:11→17:29)
[2024-11-17] MEDS: TYLENOL 1000 MG PO ×2 (09:12→20:42)
[2024-11-17] MEDS: ELIQUIS 5 MG PO ×2 (09:12→20:41)
[2024-11-17] MEDS: MS CONTIN (EXTENDED RELEASE) 30 MG PO ×2 (09:12→20:40)
[2024-11-17] MEDS: PROTONIX 40 MG PO ×2 (09:12→20:39)
[2024-11-17] MEDS: COLACE 100 MG PO ×2 (09:12→20:38)
[2024-11-17] MEDS: MIRALAX PO (09:13)
[2024-11-17] MEDS: SENOKOT 17.2 MG PO ×2 (09:13→20:40)
[2024-11-17] MEDS: THERAGRAN 1 TABLET PO (09:13)
[2024-11-17] MEDS: DELTASONE 5 MG PO ×2 (09:13→20:39)
[2024-11-17] MEDS: OSCAL 500 + D 1000 MG PO ×2 (09:13→20:39)
[2024-11-17] MEDS: TOPROL XL 50 MG PO ×2 (09:13→20:41)
[2024-11-17] MEDS: STERILE WATER FOR INJECTION 20 ML IV (09:43)
[2024-11-17] MEDS: ROCEPHIN 2000 MG IV (09:43)
[2024-11-17 09:51] LABS: Blood Urea Nitrogen 29 mg/dl (9-20); Calcium 8.5 mg/dl (8.4-10.2); Carbon Dioxide 26 mmol/L (22-30); Chloride 104 mmol/L (98-107); Estimated Creatinine Clearance 108 ml/min; Glucose 220 mg/dl (70-99); Potassium 4.6 mmol/L (3.5-5.1); Sodium 139 mmol/L (135-145); eGFR > 60.00
[2024-11-17 10:12] LABS: Urine Albumin 2+ (Neg - Trace); Urine Bilirubin Negative (Negative); Urine Character Slightly Cloudy (Clear); Urine Color Yellow; Urine Glucose Negative (Negative); Urine Ketone Negative (Negative); Urine Leukocyte 3+ (Negative); Urine Nitrite Negative (Negative); Urine Occult Blood 4+ (Negative); Urine Urobilinogen 1+ (Neg - 1+)
[2024-11-17 10:46] LABS: Urine Bacteria Many (Negative); Urine Hyaline Cast 0-2 /LPF (0-2); Urine Squamous Cell 0-2 /LPF (Few)
--- NOTE | 2024-11-17 11:09 | W.PN.CARDCBS ---
Today's Communication / Plan
-
He presented in atrial fibrillation and spontaneously converted to sinus rhythm. Remains in sinus rhythm
Continue outpatient Toprol
Due to his metastatic prostate cancer, and history of GI bleeding 07/2024, he is felt to be at elevated bleeding risk.
Discussed with oncology who favored stopping Plavix in favor of monotherapy with Eliquis. He is not on ASA to reduce risk of bleeding
Despite IV diuresis and remaining in sinus rhythm he remains dyspneic. His EF is preserved. Lasix was increased to 40 mg IV twice daily. Creatinine remains stable at 0.6 on November 17.
He was taking Lasix 40 mg daily prior to admission.
His dyspnea may be multifactorial.
Amlodipine is on hold
He remains on his chronic O2 and was on 3 L O2 as an outpatient.
Patient is not chronically on SGLT2 inhibitor and will hold off for now as his acute HF is likely precipitated by rapid A-fib
Continue medical therapy of non-NH troponin which peaked at 0.096.
Continue atorvastatin 80 mg daily for hyperlipidemia
Impression / Plan
-
.
PCP: Dr. Cervantes
Cardiology: Dr. Carter
Impression:
Multifactorial dyspnea.
Admitted with A-fib, chest pain and CHF 11/14/2024
Acute HFpEF, proBNP 4740 at presentation
Newly diagnosed A-fib with RVR, spontaneously converted to sinus
Non-NH troponin elevation peak 0.096
Status post chest pain
CAD
s/p 2.25 mm and 2.5 mm Medtronic Prosper THOMAS to distal to apical LAD 06/12/24
EF 37% by Lexiscan mibi 05/21/24, but 60-65% by echo 06/11/24
Metastatic prostate cancer
Febrile Nov 17 2024
Hyperlipidemia, LDL 195
Hyperglycemia, HgbA1c 6.5%
Lexiscan nuclear stress test 05/21/2024: Myocardial perfusion imaging without definite evidence of scan ischemia or scar, inferior soft tissue attenuation artifact present, EF 39%
Echo 04/01/23: Normal BiV size and function without wall motion abnormality, mild concentric LVH, no significant valve disease
Echo 06/11/24: EF 60 to 65%, no WMA, no MR, no /AR
Echo Nov 15 2024: EF 55 to 60%, no regional wall motion abnormalities noted, moderate concentric LVH, no significant valvular disease
Plan:
He presented in atrial fibrillation and spontaneously converted to sinus rhythm. Remains in sinus rhythm
Continue outpatient Toprol
Due to his metastatic prostate cancer, and history of GI bleeding 07/2024, he is felt to be at elevated bleeding risk.
Discussed with oncology who favored stopping Plavix in favor of monotherapy with Eliquis. He is not on ASA to reduce risk of bleeding
Despite IV diuresis and remaining in sinus rhythm he remains dyspneic. His EF is preserved. Lasix was increased to 40 mg IV twice daily. Creatinine remains stable at 0.6 on November 17.
He was taking Lasix 40 mg daily prior to admission.
His dyspnea may be multifactorial.
Amlodipine is on hold
He remains on his chronic O2 and was on 3 L O2 as an outpatient.
Patient is not chronically on SGLT2 inhibitor and will hold off for now as his acute HF is likely precipitated by rapid A-fib
Continue medical therapy of non-NH troponin which peaked at 0.096.
Continue Lipitor 80 mg daily for hyperlipidemia.
Discussed with at bedside.
PREADMIT DATA:
-Patient came to [facility] ER last night with chest pain, shortness of breath and was admitted with new A-fib with RVR and CHF and cardiology is now consulted. Patient was seen admitted to 06/11/24 until 06/19/24 with chest pain and had LAD PCI as
outlined above. Despite PCI that admission the patient continued with chest pain and was seen by oncology for metastatic prostate cancer with bony metastasis pain that was treated with radiation therapy prior to beginning chemotherapy. He seemed to
do better for a while and then was admitted again but this time with GIB 07/2024 at which time we decreased his regimen from aspirin and Plavix to Plavix alone. Patient says that he started to have episodes of intermittent SOB again and was getting
frustrated because it seemed like no one could figure out what was going on, so when he had symptoms starting a day and a half ago he stated home rather than seeking help right away. When he came to the ER he was found to be in A-fib with RVR and
evidence of acute HF. He is chronically on oxygen at 3 L NC, but was requiring NRB initially. He says he actually feels relieved that he may have an answer for why he has been having the symptoms and overall feels a bit better since admission.
Progress Note - [employer]
Subjective
Date of Service: November 17, 2024
Pt seen and examined. No chest pain. Remains dyspneic.
Objective
Labs:
11/17/24 00:47
11/17/24 08:44
Labs
Hgb 9.9 g/dL (13.0-18.0) L 11/17/24 00:47
Hct 31.5 % (39.0-52.0) L 11/17/24 00:47
Plt Count 379 10^3/uL (130-400) 11/17/24 00:47
PT 15.2 Sec (11.4-14.6) H 11/16/24 05:15
INR 1.15 11/16/24 05:15
APTT Cancelled 11/15/24 18:00
Sodium 139 mmol/L (135-145) 11/17/24 08:44
Potassium 4.6 mmol/L (3.5-5.1) 11/17/24 08:44
BUN 29 mg/dl (9-20) H 11/17/24 08:44
Creatinine 0.6 mg/dL (0.7-1.3) L 11/17/24 08:44
Glucose 220 mg/dl (70-99) H 11/17/24 08:44
Troponins
11/14/24 11/14/24 11/15/24
16:21 20:26 02:46
Troponin I 0.086 H* 0.087 H* 0.096 H*
11/15/24 11/15/24 11/15/24
08:59 14:41 20:51
Troponin I 0.089 H* 0.088 H* 0.084 H*
Vital Signs and I&O:
Vital Signs
Temp Pulse Resp BP Pulse Ox
97.9 F 79 14 158/85 97
11/17/24 07:46 11/17/24 07:46 11/17/24 07:46 11/17/24 09:11 11/17/24 07:46
Vital Signs
Temp Pulse Resp BP Pulse Ox
97.9 F 79 14 158/85 97
11/17/24 07:46 11/17/24 07:46 11/17/24 07:46 11/17/24 09:11 11/17/24 07:46
Intake & Output
11/15/24 11/16/24 11/17/24 11/18/24
06:59 06:59 06:59 06:59
Intake Total 1680 / 1680 960 / 960
Output Total 820 / 820 2450 / 2450 2029 / 2030 300 / 300
Balance -820 / -820 -770 / -770 -1070 / -1070 -300 / -300
Physical Exam
Physical Exam
General: No acute distress, AAOX3
Neck: Negative JVD
Heart: Regular, Negative S3 positive S1/S2, Negative S4, No murmur
Lungs: CTA b/l, negative wheezes/rales/rhonchi
Abd: Morbid obesity. Positive BS, NT/ND, neg rebound/rigidity/guarding
Ext: Negative cyanosis/clubbing/edema
Neuro: nonfocal
[2024-11-17 11:17] VITALS: BP 108/58
--- NOTE | 2024-11-17 13:48 | W.PN.HOSP.TC ---
Today's Communication/Plan
-
Diuresis
Rocephin
Assessment / Plan
Assessment / Plan
84-year-old man with shortness of breath. Patient states that since he had pneumonia 2 years ago he has never been himself. He has been having more shortness of breath since May to point where he really has a hard time now ambulating without
getting short of breath. Denies any chest pain he uses 3 L of oxygen at home
Chest x-ray-bony metastatic disease lungs are clear cardiomegaly with no evidence of pulmonary edema pleural effusion
PET scan 11/12/2024-widespread metastatic disease in the axial and appendicular skeleton some of which include skull base, cervical spine, thoracic spine, lumbar spine, bony pelvis, sternum, bilateral shoulders, proximal to mid right humerus,
proximal to mid left humerus, numerous foci in the proximal to mid right femur and left femur, scattered throughout the ribs
On examination patient is awake alert communicating
Cardiovascular system S1-S2 regular
Chest decreased breath sounds but clear
Abdomen soft and nontender
No pedal edema
# Fatigue and shortness of breath-likely secondary to atrial fibrillation with RVR
Could this be likely secondary to his metastatic prostate cancer as well
# Fever-start ceftriaxone. Get urine cultures. Blood cultures ordered last night.
# Acute on chronic hypoxic respiratory failure
Patient was on 15 L of nonrebreather-now on nasal cannula
Currently on 3 L of oxygen
Wean as tolerated
Treat underlying conditions
# New onset atrial fibrillation with RVR
TSH-normal
Continue Lopressor
Eliquis
History of GI bleed in July 2024-watch for any signs of bleeding
Cardiology following
Currently in sinus rhythm
# Acute on chronic HFpEF
BNP 4740
Chest x-ray without any evidence of vascular congestion
Decompensation likely secondary to A-fib
COVID and influenza negative
Continue Lasix 40 mg IV BID
Intake output charting and daily weights
Echo in May 2024 with EF 60 to 65%
Continue beta-yaneli
Consider SGLT2 inhibitors
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
# Elevated troponin-likely nonischemic myocardial injury secondary to above
# Coronary artery disease with history of stents in May 2024
Continue , statin, beta-yaneli. Plavix discontinued when Eliquis started
Stress test 05/21/2024-no evidence of ischemia or scar. Inferior soft tissue attenuation present.
# History of rheumatic heart disease
# Hypertension-continue beta-yaneli with increased dose. Hold off on amlodipine
# Diabetes with hemoglobin A1c 6.31 May 2024
Accu-Cheks and sliding scale coverage
# Hyperlipidemia-continue statin
# Metastatic prostate carcinoma-
Radical prostatectomy 2002
History of radiation treatment
On Chemo now and last chemotherapy was 3 weeks ago Taxotere ( Not tolerating well)
Follows up with Dr. Mendez and Dr. Patterson
'Pluvicto or Jevtana in the future both of which which can be associated with thrombocytopenia .Pluvicto has been arranged with [facility] on 12/04' Per Heme
# Chronic pain-narcotic dependent-continue Dilaudid, MS Contin, prednisone
# History of GI bleed/diverticulosis versus radiation proctitis-continue PPI
# Depression-continue sertraline
# DVT prophylaxis-Eliquis
# Full code
Left a message for significant other yesterday and today
Physical therapy evaluation noted. Patient needs rehab. Case management alerted
While atrial fibrillation might be causing some of his symptoms I am wondering if metastatic prostate cancer is also contributing to most of his symptoms too. Recent PET scan reviewed by me. I will request oncology to weigh in. CODE STATUS will
also need to be readdressed given metastatic malignancy.
Anticipated Discharge: 24 - 48 hours
Subjective/Interval History
-
Date of Service: November 17, 2024
Objective Data
-
Labs:
Laboratory Results
11/17/24
08:44
Sodium 139
Potassium 4.6
Chloride 104
Carbon Dioxide 26
BUN 29 H
Creatinine 0.6 L
Glucose 220 H
Calcium 8.5
Vital Signs:
Vital Signs
Temp Pulse Resp BP Pulse Ox
98.8 F 72 16 108/58 95
11/17/24 11:17 11/17/24 11:17 11/17/24 11:17 11/17/24 11:17 11/17/24 11:17
I&O
11/16/24 11/17/24 11/18/24
06:59 06:59 06:59
Intake Total 1680 / 1680 960 / 960
Output Total 2450 / 2450 2029 / 2029 300 / 300
Balance -770 / -770 -1070 / -1070 -300 / -300
[2024-11-17 15:48] VITALS: BP 128/66
[2024-11-17] MEDS: ZOLOFT 50 MG PO (17:29)
[2024-11-17] MEDS: LIPITOR 80 MG PO (17:29)
[2024-11-17 19:23] VITALS: BP 154/66
[2024-11-17 23:40] VITALS: BP 129/61
[2024-11-18] VITALS (7 sets, daily range): BP systolic 110–162; BP diastolic 53–85; PULSE 96; O2SAT 97; BMI 29.4
[2024-11-18 06:16] LABS: Hematocrit 33.2 % (39.0-52.0); Mean Corp Hgb Conc. 30.1 g/dL (33.0-37.0); Mean Corpuscular Volume 86.2 fL (80.0-94.0); Mean Platelet Volume 9.2 fL (7.4-10.4); Platelet Count 328 10^3/uL (130-400); Red Blood Cell Count 3.85 10^6/uL (4.70-6.10); Red Cell Dist. Width 21.8 % (11.5-14.5); White Blood Cell Count 11.9 10^3/uL (4.8-10.8)
[2024-11-18 06:45] LABS: Blood Urea Nitrogen 33 mg/dl (9-20); Calcium 8.5 mg/dl (8.4-10.2); Carbon Dioxide 30 mmol/L (22-30); Chloride 104 mmol/L (98-107); Estimated Creatinine Clearance 108 ml/min; Glucose 150 mg/dl (70-99); Potassium 4.1 mmol/L (3.5-5.1); Sodium 139 mmol/L (135-145); eGFR > 60.00
[2024-11-18] MEDS: COLACE PO (07:14)
[2024-11-18] MEDS: SENOKOT PO (07:14)
[2024-11-18] MEDS: MIRALAX PO (07:14)
[2024-11-18] MEDS: MS CONTIN (EXTENDED RELEASE) 30 MG PO ×2 (07:51→20:59)
[2024-11-18] MEDS: DELTASONE 5 MG PO ×2 (07:51→20:59)
[2024-11-18] MEDS: TOPROL XL 50 MG PO ×2 (07:52→20:59)
[2024-11-18] MEDS: PROTONIX 40 MG PO ×2 (07:52→20:58)
[2024-11-18] MEDS: OSCAL 500 + D 1000 MG PO ×2 (07:52→20:58)
[2024-11-18] MEDS: LASIX 40 MG IV ×2 (07:52→16:15)
[2024-11-18] MEDS: TYLENOL 1000 MG PO ×2 (07:52→20:58)
[2024-11-18] MEDS: ELIQUIS 5 MG PO ×2 (07:52→20:58)
[2024-11-18] MEDS: THERAGRAN 1 TABLET PO (07:52)
[2024-11-18] MEDS: OMNIPAQUE 50 ML PO (08:48)
[2024-11-18] MEDS: ZOSYN 50 IV ×3 (10:25→20:57)
--- NOTE | 2024-11-18 11:01 | CON.ID ---
Consultation
-
Date/Time Consultation Requested: 11/18/24 8:51
Date/Time Consultation Performed: 11/18/24 11:02
Requesting Provider: Dr Coates
Performing Provider: Dr aBrakat
Reason for Consultation: Enterobacter Bacteremia
Chief Complaint / Past History
Chief Complaint
shortness of breath
History of Present Illness
Mr Pena is an 84 year old male with history of metastatic prostate cancer with chronic pain (prostatectomy 2002, previous radiation, last chemo taxotere 3 weeks [employer], planned for same day but cancelled, requires straight caths TID), HFpEF, chronic
hypoxic resp failure on 3L NC at baseline who presented here 11/14 for shortness of breath progressing over months until it became severe on the day of admission; home pulse ox with saturations in the 80s. Also mild, productive cough. No fevers,
chills or sweats. No sick contacts, chest pain, palpitations, wheezing, abdominal pain, nausea, vomiting, diarrhea, constipation, dysuria, bloody or black stools, calf or leg pain. No aden present on arrival.
Since arrival patient spiking fevers to Tmax 103.6 rectally, satomg 97% on 3L HR 123, BP 148/82, RR 26, WBC 19.2, Hgb 11.8 g/dL, PLT 418K, Na 142, BUN/Cr 26/0.7, LFTs wnl, HS Trop 0.086, BNP 4740. COVID (-). Flu (-). CXR clear without infiltrates. A
PET scan is on file from 11/14/24; no uptake in the chest soft tissue, bony mets are noted. 11/17 CXR: Pulmonary interstitial markings at least top normal. Cannot exclude interstitial pneumonitis or edema. UA 11-15 wbc/hpf on 11/15 on 11/17 no pyuria,
11/15 urine culture finalized negative (mixed aylin) however 11/17 blood cultures x2 E cloacae and 11/17 urine culture E coli 100K, repeat blood cultures x2 are in progress, patient was started on ceftiraxone 11/17 and now is on zosyn. 11/15 TTE: no
valvular disease ID is consulted for assistance with management.
Past History
Additional Past Medical History:
CAD s/p stent (05/2024), HFpEF (TTE 06/11/24 wtih EF 60-65%, Mod concentric LVH, Aortic sclerosis without stenosis), HTN/HLD, Chronic Hypoxic Resp Failure on 3LNC, Rheumatic Heart Disease, Metastatic Prostate Ca
Additional Past Surgical History:
port
Coronary Stentx2, Prostatectomy (2003), B/L Inguinal Hernia Repair, B/L THR
Allergy History:
tetanus toxoid, adsorbed Allergy (Verified 11/14/24 16:19)
Hives
Medications Reviewed: Yes
Social History
Tobacco: Non-Smoker
Alcohol: None
Drug: None
Family History
Family History: Not Pertinent
Review of Systems
Review of Systems
General: Negative Fever or Chills
All systems: All other systems were reviewed and were negative
Vital Signs
Temp Pulse Resp BP Pulse Ox
98.9 F 87 16 140/78 99
11/18/24 07:13 11/18/24 07:52 11/18/24 07:13 11/18/24 07:52 11/18/24 10:00
Physical Exam
Physical Exam
Constitutional: No Acute Distress
Cardiovascular: Regular Rate and S1/S2; Negative Murmur or Rub
Pulmonary: Clear and Symmetric; Negative Wheezes, Rales or Rhonchi
Gastrointestinal: Soft, Non Tender, Non Distended and Normal Bowel Sounds
Skin: Warm and Dry; Negative Rash or Jaundice
Lines: Other (port no erythema, warmth, tenderness, drainage; functional)
Lab / Diagnostic Study Results
11/18/24 05:53
11/18/24 05:53
Abs Immat Gran (auto) 0.2 10^3/uL (0-0.05) H 11/14/24 16:21
Absolute Neuts (auto) 17.0 10^3/uL (1.4-6.5) H 11/14/24 16:21
Absolute Lymphs (auto) 0.8 10^3/uL (1.2-3.4) L 11/14/24 16:21
Absolute Monos (auto) 1.1 10^3/uL (0.1-0.6) H 11/14/24 16:21
Absolute Basos (auto) 0.1 10^3/uL (0-0.2) 11/14/24 16:21
Immature Gran % 1.0 % (0-0.5) H 11/14/24 16:21
Neutrophils % 88.2 % (42.2-75.2) H 11/14/24 16:21
Lymphocytes % 4.3 % (20.5-51.1) L 11/14/24 16:21
Monocytes % 5.5 % (1.7-9.3) 11/14/24 16:21
Eosinophils % 0.5 % (0-6) 11/14/24 16:21
Basophils % 0.5 % (0-2) 11/14/24 16:21
PT 15.2 Sec (11.4-14.6) H 11/16/24 05:15
INR 1.15 11/16/24 05:15
Lactic Acid 1.2 mmol/L (0.7-2.0) 11/17/24 00:47
Ur Squamous Epith Cells 0-2 /LPF (Few) 11/17/24 09:38
Microbiology Results
Micro:
11/17/24 00:47 Blood Culture - Preliminary
Blood/Venous Positive culture in progress
Gram Stain - Preliminary
11/18/24 09:51 Blood Culture - Pending
Blood/Venous
11/18/24 09:05 Blood Culture - Pending
Blood/Venous
11/17/24 00:57 Blood Culture - Preliminary
Blood/Venous Enterobacter cloacae complex
Gram Stain - Preliminary
11/17/24 09:38 Urine Culture - Pending
Urine
11/15/24 17:56 Urine Culture - Final
Urine
11/17/24 00:47 Influenza Types A & B (ZI) - Final
Nasal Swab Negative for Influenza A & B, NAAT
Negative results must be combined with clinical observations
and patient history.
Nucleic Acid Amplification test (NAAT)performed on the
[employer] platform.
11/14/24 16:21 Influenza Types A & B (ZI) - Final
Nasal Swab Negative for Influenza A & B, NAAT
Negative results must be combined with clinical observations
and patient history.
Nucleic Acid Amplification test (NAAT)performed on the
[employer] platform.
Assessment / Plan
Probable Enterobacter Bacteremia
Possible UTI - initial cx mixed aylin, follow up E coli
Metastatic prostate cancer on chemotherapy
- repeat blood cultures x2 in progress
- polymicrobial urine due to necessary straight caths most likely the source of bacteremia vs less likely port, also note that verigene PCR testing occasionally miss-identifies isolates and we may yet see a change in his cultures
- TTE nonrevealing
- agree with zosyn pending sensitivities
--- NOTE | 2024-11-18 12:05 | W.PN.CARDCBS ---
Today's Communication / Plan
-
Continue IV diuresis
Continue Eliquis as monotherapy.
Impression / Plan
-
.
PCP: Dr. Cervantes
Cardiology: Dr. Carter
Impression:
Multifactorial dyspnea.
Admitted with A-fib, chest pain and CHF 11/14/2024
Acute HFpEF, proBNP 4740 at presentation
Newly diagnosed A-fib with RVR, spontaneously converted to sinus
Non-AL troponin elevation peak 0.096
Status post chest pain
CAD
s/p 2.25 mm and 2.5 mm Medtronic Prosper THOMAS to distal to apical LAD 06/12/24
EF 37% by Lexiscan mibi 05/21/24, but 60-65% by echo 06/11/24
Metastatic prostate cancer
Febrile Nov 17 2024
Hyperlipidemia, LDL 195
Hyperglycemia, HgbA1c 6.5%
Lexiscan nuclear stress test 05/21/2024: Myocardial perfusion imaging without definite evidence of scan ischemia or scar, inferior soft tissue attenuation artifact present, EF 39%
Echo 04/01/23: Normal BiV size and function without wall motion abnormality, mild concentric LVH, no significant valve disease
Echo 06/11/24: EF 60 to 65%, no WMA, no MR, no /AR
Echo Nov 15 2024: EF 55 to 60%, no regional wall motion abnormalities noted, moderate concentric LVH, no significant valvular disease
Plan:
His dyspnea may be multifactorial.
He feels improved with diuresis. EF is preserved.
Continue IV diuresis with lasix 40 mg IV BID.
Wt down another 4 lbs. Greater than 1L negative.
Continue to monitor Is and Alcides and daily wts
He presented in atrial fibrillation and spontaneously converted to sinus rhythm.
Remains in sinus rhythm
Continue outpatient Toprol
Due to his metastatic prostate cancer, and history of GI bleeding 07/2024, he is felt to be at elevated bleeding risk and after discussion with oncology it was recommended that he stop Plavix in favor of monotherapy with Eliquis.
Amlodipine is on hold
He remains on his chronic O2 and was on 3 L O2 as an outpatient.
Patient is not chronically on SGLT2 inhibitor and will hold off for now as his acute HF is likely precipitated by rapid A-fib
Continue medical therapy of non-AL troponin which peaked at 0.096.
Continue Lipitor 80 mg daily for hyperlipidemia.
Discussed with at bedside.
PREADMIT DATA:
-Patient came to [facility] ER last night with chest pain, shortness of breath and was admitted with new A-fib with RVR and CHF and cardiology is now consulted. Patient was seen admitted to 06/11/24 until 06/19/24 with chest pain and had LAD PCI as
outlined above. Despite PCI that admission the patient continued with chest pain and was seen by oncology for metastatic prostate cancer with bony metastasis pain that was treated with radiation therapy prior to beginning chemotherapy. He seemed to
do better for a while and then was admitted again but this time with GIB 07/2024 at which time we decreased his regimen from aspirin and Plavix to Plavix alone. Patient says that he started to have episodes of intermittent SOB again and was getting
frustrated because it seemed like no one could figure out what was going on, so when he had symptoms starting a day and a half ago he stated home rather than seeking help right away. When he came to the ER he was found to be in A-fib with RVR and
evidence of acute HF. He is chronically on oxygen at 3 L NC, but was requiring NRB initially. He says he actually feels relieved that he may have an answer for why he has been having the symptoms and overall feels a bit better since admission.
Progress Note - [employer]
Subjective
Date of Service: November 18, 2024
Patient seen and examined. Breathing better. No chest pain
Objective
Labs:
11/18/24 05:53
11/18/24 05:53
Labs
Hgb 10.0 g/dL (13.0-18.0) L 11/18/24 05:53
Hct 33.2 % (39.0-52.0) L 11/18/24 05:53
Plt Count 328 10^3/uL (130-400) 11/18/24 05:53
PT 15.2 Sec (11.4-14.6) H 11/16/24 05:15
INR 1.15 11/16/24 05:15
APTT Cancelled 11/15/24 18:00
Sodium 139 mmol/L (135-145) 11/18/24 05:53
Potassium 4.1 mmol/L (3.5-5.1) 11/18/24 05:53
BUN 33 mg/dl (9-20) H 11/18/24 05:53
Creatinine 0.6 mg/dL (0.7-1.3) L 11/18/24 05:53
Glucose 150 mg/dl (70-99) H 11/18/24 05:53
Troponins
11/15/24 11/15/24
14:41 20:51
Troponin I 0.088 H* 0.084 H*
Vital Signs and I&O:
Vital Signs
Temp Pulse Resp BP Pulse Ox
97.6 F 72 18 110/61 97
11/18/24 11:04 11/18/24 11:04 11/18/24 11:04 11/18/24 11:04 11/18/24 11:04
Vital Signs
Temp Pulse Resp BP Pulse Ox
97.6 F 72 18 110/61 97
11/18/24 11:04 11/18/24 11:04 11/18/24 11:04 11/18/24 11:04 11/18/24 11:04
Intake & Output
11/16/24 11/17/24 11/18/24 11/19/24
06:59 06:59 06:59 06:59
Intake Total 1680 / 1680 960 / 960 2340 / 2340
Output Total 2450 / 2450 2030 / 2030 3000 / 3000 750 / 750
Balance -770 / -770 -1070 / -1070 -660 / -660 -750 / -750
Physical Exam
Physical Exam
General: No acute distress, AAOX3
Neck: Negative JVD
Heart: Regular, Negative S3 positive S1/S2, Negative S4, No murmur
Lungs: CTA b/l, negative wheezes/rales/rhonchi
Abd: Morbid obesity positive BS, NT/ND, neg rebound/rigidity/guarding
Ext: Negative cyanosis/clubbing/edema
Neuro: nonfocal
[2024-11-18] MEDS: MILK OF MAGNESIA PO (13:26)
[2024-11-18] MEDS: MILK OF MAGNESIA 30 ML PO (13:35)
--- NOTE | 2024-11-18 15:09 | W.PN.HOSP.TC ---
Today's Communication/Plan
-
ID evaluation
Change antibiotics to Zosyn
Repeat cultures
PT
Assessment / Plan
Assessment / Plan
84-year-old man with shortness of breath. Patient states that since he had pneumonia 2 years ago he has never been himself. He has been having more shortness of breath since May to point where he really has a hard time now ambulating without
getting short of breath. Denies any chest pain he uses 3 L of oxygen at home
Chest x-ray-bony metastatic disease lungs are clear cardiomegaly with no evidence of pulmonary edema pleural effusion
PET scan 11/12/2024-widespread metastatic disease in the axial and appendicular skeleton some of which include skull base, cervical spine, thoracic spine, lumbar spine, bony pelvis, sternum, bilateral shoulders, proximal to mid right humerus,
proximal to mid left humerus, numerous foci in the proximal to mid right femur and left femur, scattered throughout the ribs
CT scan of the abdomen and pelvis with contrast-11/18/2024-marked widespread diffuse bony sclerotic metastatic disease. Mild hepatomegaly with diffuse fatty liver. Right lobe hepatic cystic lesion. Simple left renal cysts as well as additional
bilateral subcentimeter low attenuation renal lesions. Small splenic simple cyst. Soft tissue in the through pelvis obscured by hardening artifact from the hip arthroplasties. Stool filling in the rectum/colon colitis cannot be excluded.
Diverticulosis
On examination patient is awake alert communicating
Cardiovascular system S1-S2 regular
Chest decreased breath sounds but clear
Abdomen soft and nontender
No pedal edema
# Fatigue and shortness of breath-likely secondary to atrial fibrillation with RVR
Could this be likely secondary to his metastatic prostate cancer as well.
# Enterobacter bacteremia-antibiotics changed to Zosyn. Repeat cultures ordered. ID consulted. CT without any evidence of infection
# Acute on chronic hypoxic respiratory failure
Patient was on 15 L of nonrebreather-now on nasal cannula
Currently on 3 L of oxygen
Wean as tolerated
Treat underlying conditions
# New onset atrial fibrillation with RVR
TSH-normal
Continue Lopressor
Eliquis
History of GI bleed in July 2024-watch for any signs of bleeding
Cardiology following
Currently in sinus rhythm
# Acute on chronic HFpEF
BNP 4740
Chest x-ray without any evidence of vascular congestion
Decompensation likely secondary to A-fib
COVID and influenza negative
Continue Lasix 40 mg IV BID
Intake output charting and daily weights
Echo in May 2024 with EF 60 to 65%
Continue beta-yaneli
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
# Elevated troponin-likely nonischemic myocardial injury secondary to above
# Coronary artery disease with history of stents in May 2024
Continue , statin, beta-yaneli. Plavix discontinued when Eliquis started
Stress test 05/21/2024-no evidence of ischemia or scar. Inferior soft tissue attenuation present.
# History of rheumatic heart disease
# Hypertension-continue beta-yaneli with increased dose. Hold off on amlodipine
# Diabetes with hemoglobin A1c 6.31 May 2024
Accu-Cheks and sliding scale coverage
# Hyperlipidemia-continue statin
# Metastatic prostate carcinoma-
Radical prostatectomy 2002
History of radiation treatment
On Chemo now and last chemotherapy was 3 weeks ago Taxotere ( Not tolerating well)
Follows up with Dr. Mendez and Dr. Patterson
'Pluvicto or Jevtana in the future both of which which can be associated with thrombocytopenia .Pluvicto has been arranged with [facility] on 12/04' Per Heme
# Chronic pain-narcotic dependent-continue Dilaudid, MS Contin, prednisone
# History of GI bleed/diverticulosis versus radiation proctitis-continue PPI
# Depression-continue sertraline
# DVT prophylaxis-Eliquis
# Full code
Discussed with significant other at bedside today
Discussed with nursing
Physical therapy evaluation noted. Patient needs rehab. Case management alerted
Part of this note was created using voice recognition system. Occasional wrong word or��sound alike� substitutions may have inadvertently occurred due to the inherent limitations of voice recognition software. If noted kindly bring it to my
attention for correction.
Anticipated Discharge: 24 - 48 hours
Subjective/Interval History
-
Date of Service: November 18, 2024
Objective Data
-
Labs:
Laboratory Results
11/18/24
05:53
WBC 11.9 H
Hgb 10.0 L
Hct 33.2 L
Plt Count 328
Sodium 139
Potassium 4.1
Chloride 104
Carbon Dioxide 30
BUN 33 H
Creatinine 0.6 L
Glucose 150 H
Calcium 8.5
Vital Signs:
Vital Signs
Temp Pulse Resp BP Pulse Ox
98.6 F 96 18 162/73 98
11/18/24 15:00 11/18/24 15:00 11/18/24 15:00 11/18/24 15:00 11/18/24 15:00
I&O
11/17/24 11/18/24 11/19/24
06:59 06:59 06:59
Intake Total 960 / 960 2340 / 2340
Output Total 2029 / 2029 3000 / 3000 750 / 750
Balance -1070 / -1070 -660 / -660 -750 / -750
[2024-11-18] MEDS: ZOLOFT 50 MG PO (17:02)
[2024-11-18] MEDS: LIPITOR 80 MG PO (17:02)
[2024-11-18] MEDS: SENOKOT 17.2 MG PO (20:58)
[2024-11-18] MEDS: COLACE 100 MG PO (21:00)
[2024-11-19 03:00] VITALS: BP 130/68
[2024-11-19] MEDS: ZOSYN 50 IV ×2 (05:25→08:45)
[2024-11-19 05:34] LABS: Hematocrit 31.3 % (39.0-52.0); Hemoglobin 9.7 g/dL (13.0-18.0); Mean Corpuscular Hgb 26.4 pg (27.0-31.0); Mean Corpuscular Volume 85.1 fL (80.0-94.0); Mean Platelet Volume 9.3 fL (7.4-10.4); Platelet Count 323 10^3/uL (130-400); Red Blood Cell Count 3.68 10^6/uL (4.70-6.10); Red Cell Dist. Width 21.5 % (11.5-14.5); White Blood Cell Count 10.3 10^3/uL (4.8-10.8)
[2024-11-19 05:58] LABS: Blood Urea Nitrogen 35 mg/dl (9-20); Calcium 8.1 mg/dl (8.4-10.2); Carbon Dioxide 31 mmol/L (22-30); Chloride 102 mmol/L (98-107); Estimated Creatinine Clearance 93 ml/min; Glucose 152 mg/dl (70-99); Potassium 4.3 mmol/L (3.5-5.1); Sodium 138 mmol/L (135-145); eGFR > 60.00
[2024-11-19 05:59] VITALS: BMI 28.8
[2024-11-19 07:00] VITALS: BP 124/65
[2024-11-19] MEDS: DELTASONE 5 MG PO ×2 (08:42→20:27)
[2024-11-19] MEDS: PROTONIX 40 MG PO ×2 (08:42→20:29)
[2024-11-19] MEDS: TYLENOL 1000 MG PO ×2 (08:42→20:26)
[2024-11-19] MEDS: MS CONTIN (EXTENDED RELEASE) 30 MG PO ×2 (08:43→20:29)
[2024-11-19] MEDS: OSCAL 500 + D 1000 MG PO ×2 (08:43→20:28)
[2024-11-19] MEDS: TOPROL XL 50 MG PO ×2 (08:43→20:28)
[2024-11-19] MEDS: LASIX 40 MG IV ×2 (08:43→16:23)
[2024-11-19] MEDS: THERAGRAN 1 TABLET PO (08:43)
[2024-11-19] MEDS: ELIQUIS 5 MG PO ×2 (08:43→20:29)
[2024-11-19] MEDS: MIRALAX PO (08:44)
[2024-11-19] MEDS: COLACE PO (08:45)
[2024-11-19] MEDS: SENOKOT PO (08:45)
[2024-11-19 11:00] VITALS: BP 121/60
--- NOTE | 2024-11-19 11:08 | W.PN.CARDCBS ---
Today's Communication / Plan
-
Continue IV Lasix today
Follow renal function closely
Tentatively plan to transition to oral Lasix in the next 24 to 48 hours
Impression / Plan
-
PCP: Dr. Cervantes
Cardiology: Dr. Carter
Impression:
Multifactorial dyspnea.
Admitted with A-fib, chest pain and CHF 11/14/2024
Acute HFpEF, proBNP 4740 at presentation
Newly diagnosed A-fib with RVR, spontaneously converted to sinus
Non-FL troponin elevation peak 0.096
CAD
s/p 2.25 mm and 2.5 mm [employer] [place] THOMAS to distal to apical LAD 06/12/24
EF 37% by Lexiscan mibi 05/21/24, but 60-65% by echo 06/11/24
Metastatic prostate cancer
Febrile Nov 17 2024
Hyperlipidemia, LDL 195
Hyperglycemia, HgbA1c 6.5%
Lexiscan nuclear stress test 05/21/2024: Myocardial perfusion imaging without definite evidence of scan ischemia or scar, inferior soft tissue attenuation artifact present, EF 39%
Echo 04/01/23: Normal BiV size and function without wall motion abnormality, mild concentric LVH, no significant valve disease
Echo 06/11/24: EF 60 to 65%, no WMA, no MR, no /AR
Echo Nov 15 2024: EF 55 to 60%, no regional wall motion abnormalities noted, moderate concentric LVH, no significant valvular disease
Plan:
His dyspnea may be multifactorial.
He feels improved with diuresis, but still requiring 3L O2 via NC which is his home requirement
Continue IV diuresis with lasix 40 mg IV BID.
Wt down another 5 lbs
Continue to monitor Is and Alcides and daily wts
EF is preserved by echo here
Patient is not chronically on SGLT2 inhibitor. Would hold off for now with possible UTI.
He presented in atrial fibrillation and spontaneously converted to sinus rhythm.
Remains in sinus rhythm
Continue outpatient Toprol
Due to his metastatic prostate cancer, and history of GI bleeding 07/2024, he is felt to be at elevated bleeding risk and after discussion with oncology it was recommended that he stop Plavix in favor of monotherapy with Eliquis.
Continue medical therapy of non-FL troponin which peaked at 0.096.
Continue Lipitor 80 mg daily for hyperlipidemia.
Amlodipine is on hold
Treatment of bacteremia per primary team
PREADMIT DATA:
-Patient came to [facility] ER last night with chest pain, shortness of breath and was admitted with new A-fib with RVR and CHF and cardiology is now consulted. Patient was seen admitted to 06/11/24 until 06/19/24 with chest pain and had LAD PCI as
outlined above. Despite PCI that admission the patient continued with chest pain and was seen by oncology for metastatic prostate cancer with bony metastasis pain that was treated with radiation therapy prior to beginning chemotherapy. He seemed to
do better for a while and then was admitted again but this time with GIB 07/2024 at which time we decreased his regimen from aspirin and Plavix to Plavix alone. Patient says that he started to have episodes of intermittent SOB again and was getting
frustrated because it seemed like no one could figure out what was going on, so when he had symptoms starting a day and a half ago he stated home rather than seeking help right away. When he came to the ER he was found to be in A-fib with RVR and
evidence of acute HF. He is chronically on oxygen at 3 L NC, but was requiring NRB initially. He says he actually feels relieved that he may have an answer for why he has been having the symptoms and overall feels a bit better since admission.
Progress Note - Tipple [employer]ic
Subjective
Date of Service: November 19, 2024
No acute overnight events. Patient tells me breathing is somewhat improved with IV diuresis. No chest pain or pressure.
Objective
Labs:
11/19/24 05:15
11/19/24 05:15
Labs
Hgb 9.7 g/dL (13.0-18.0) L 11/19/24 05:15
Hct 31.3 % (39.0-52.0) L 11/19/24 05:15
Plt Count 323 10^3/uL (130-400) 11/19/24 05:15
PT 15.2 Sec (11.4-14.6) H 11/16/24 05:15
INR 1.15 11/16/24 05:15
APTT Cancelled 11/15/24 18:00
Sodium 138 mmol/L (135-145) 11/19/24 05:15
Potassium 4.3 mmol/L (3.5-5.1) 11/19/24 05:15
BUN 35 mg/dl (9-20) H 11/19/24 05:15
Creatinine 0.7 mg/dL (0.7-1.3) 11/19/24 05:15
Glucose 152 mg/dl (70-99) H 11/19/24 05:15
Vital Signs and I&O:
Vital Signs
Temp Pulse Resp BP Pulse Ox
97.9 F 81 20 124/65 97
11/19/24 07:00 11/19/24 07:00 11/19/24 07:00 11/19/24 07:00 11/19/24 07:00
Vital Signs
Temp Pulse Resp BP Pulse Ox
97.9 F 81 20 124/65 97
11/19/24 07:00 11/19/24 07:00 11/19/24 07:00 11/19/24 07:00 11/19/24 07:00
Intake & Output
11/17/24 11/18/24 11/19/24 11/20/24
06:59 06:59 06:59 06:59
Intake Total 960 / 960 2340 / 2340 1680 / 1680
Output Total 2029 / 2029 3000 / 3000 3700 / 3700
Balance -1070 / -1070 -660 / -660 -2019 /
Physical Exam
Physical Exam
Gen: NAD, AA
HEENT: NC/AT, sclera anicteric
Neck: No JVD
CV: RRR, NL s1/s2
Lungs: No increased work of breathing on 3 L O2
Abd: Protuberant
Ext: No LE edema
Skin: Warm, dry
Neuro: Non-focal
[2024-11-19] MEDS: STERILE WATER FOR INJECTION 20 ML IV (12:32)
[2024-11-19] MEDS: ROCEPHIN 2000 MG IV (12:32)
--- NOTE | 2024-11-19 13:21 | W.PN.ID1 ---
Date of Service
Date of Service: November 19, 2024
Today's Communication
- restart ceftriaxone for today, if 11/18 blood cultures remain negative then could consider discharge on cefdinir 300 mg po BID x 7 days total: 11/17- 11/23
- follow up with PCP
Assessment / Plan
Probable Enterobacter Bacteremia
Possible UTI - initial cx mixed aylin, follow up E coli
Metastatic prostate cancer on chemotherapy
- repeat blood cultures x2 in progress no growth to date
- polymicrobial urine due to necessary straight caths most likely the source of bacteremia, less likely port
- TTE nonrevealing
- restart ceftriaxone for today, if 11/18 blood cultures remain negative then could consider discharge on cefdinir 300 mg po BID x 7 days total: 11/17- 11/23
- follow up with PCP
Chief Complaint
-: UTI and Bacteremia
Subjective / Review of Systems
afebrile
bp stable
tolerating current therapies
no new complaints
Vital Signs / Physical Exam
Vital Signs
Vital Signs
Temp Pulse Resp BP Pulse Ox
97.8 F 71 20 121/60 100
11/19/24 11:00 11/19/24 11:00 11/19/24 11:00 11/19/24 11:11/19/24 11:00
Physical Exam
Constitutional: No Acute Distress
Cardiovascular: Regular Rate and S1/S2; Negative Murmur or Rub
Pulmonary: Clear and Symmetric; Negative Wheezes or Rales
Gastrointestinal: Soft, Non Tender, Non Distended and Normal Bowel Sounds
Skin: Warm and Dry; Negative Rash or Jaundice
Lines: Port (no erythema, warmth, tenderness drainage; functional)
Objective Data
Lab Data
Lab Results
11/19/24 05:15
11/19/24 05:15
PT 15.2 Sec (11.4-14.6) H 11/16/24 05:15
INR 1.15 11/16/24 05:15
APTT Cancelled 11/15/24 18:00
Estimated Creat Clear 93 ml/min 11/19/24 05:15
Lactic Acid 1.2 mmol/L (0.7-2.0) 11/17/24 00:47
Total Bilirubin 0.6 mg/dl (0.2-1.3) 11/14/24 16:21
AST 40 U/L (17-59) 11/14/24 16:21
ALT 46 U/L (0-50) 11/14/24 16:21
Alkaline Phosphatase 127 U/L (38-126) H 11/14/24 16:21
Most recent labs reviewed.
Micro Results:
11/18/24 09:51 Blood Culture - Preliminary
Blood/Venous No Growth in 24 hours- Final report to follow
11/17/24 00:47 Blood Culture - Preliminary
Blood/Venous Staphylococcus epidermidis
Streptococcus species
Additional testing on request
Gram Stain - Final
11/17/24 00:57 Blood Culture - Preliminary
Blood/Venous Enterobacter cloacae
Gram Stain - Preliminary
11/17/24 09:38 Urine Culture - Final
Urine Escherichia coli
11/18/24 09:05 Blood Culture - Preliminary
Blood/Venous No Growth in 24 hours- Final report to follow
11/15/24 17:56 Urine Culture - Final
Urine
11/17/24 00:47 Influenza Types A & B (ZI) - Final
Nasal Swab Negative for Influenza A & B, NAAT
Negative results must be combined with clinical observations
and patient history.
Nucleic Acid Amplification test (NAAT)performed on the
[employer] platform.
11/14/24 16:21 Influenza Types A & B (ZI) - Final
Nasal Swab Negative for Influenza A & B, NAAT
Negative results must be combined with clinical observations
and patient history.
Nucleic Acid Amplification test (NAAT)performed on the
[employer] platform.
--- NOTE | 2024-11-19 14:05 | W.PN.HOSP.TC ---
Today's Communication/Plan
-
Continue antibiotics
Continue IV Lasix
Continue PT/OT
Assessment / Plan
Assessment / Plan
Gen-AAOx3, NAD
HEENT-NC, AT, anicteric, clear oral mm
Neck-supple
CV-reg, no M, +S1/S2
Lungs-diminished breath sounds bilaterally
Abd-soft, NT, ND
Ext-1+ edema bilateral lower extremity
Musculoskeletal-no cyanosis, clubbing
Skin-warm and dry
Neuro-grossly non-focal
Psych-calm, cooperative
Sepsis due to Enterobacter bacteremia -antibiotics changed to IV ceftriaxone, ID following. Repeat blood cultures 11/18 negative.
Acute on chronic hypoxic respiratory failure -suspect multifactorial etiology including acute heart failure exacerbation in the setting of rapid atrial fibrillation. Baseline chronic interstitial lung disease.
Patient was on 15 L of nonrebreather, now on nasal cannula 3 L, this is his baseline use at home.
New onset atrial fibrillation with RVR
TSH-normal
Continue Lopressor
Eliquis
History of GI bleed in July 2024-watch for any signs of bleeding
Cardiology following
Currently in sinus rhythm
Acute on chronic HFpEF -clinically improving on IV Lasix. Weight down almost 4 kg since admission.
BNP 4740
November 14 chest x-ray without pulmonary edema.
November 17 chest x-ray with at least top normal pulmonary interstitial markings. Discrepancy may be due to different exposures.
Decompensation likely secondary to A-fib
Echo in May 2024 with EF 60 to 65%
Continue beta-yaneli
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
Elevated troponin-likely nonischemic myocardial injury secondary to above
Coronary artery disease with history of stents in May 2024
Continue , statin, beta-yaneli. Plavix discontinued when Eliquis started
Stress test 05/21/2024-no evidence of ischemia or scar. Inferior soft tissue attenuation present.
History of rheumatic heart disease
Essential hypertension -continue beta-yaneli with increased dose. Hold off on amlodipine
DM2 without hyperglycemia - with hemoglobin A1c 6.31 May 2024. Not on diabetes meds at home.
Accu-Cheks and sliding scale coverage
Hyperlipidemia -continue atorvastatin.
Metastatic prostate carcinoma- s/p Radical prostatectomy 2002
History of radiation treatment
On Chemo now and last chemotherapy was 3 weeks ago Taxotere ( Not tolerating well)
Follows up with Dr. Mendez and Dr. Patterson
'Pluvicto or Jevtana in the future both of which which can be associated with thrombocytopenia .Pluvicto has been arranged with [facility] on 12/04' Per Heme
Chronic pain-narcotic dependent-continue Dilaudid, MS Contin, prednisone
History of GI bleed/diverticulosis versus radiation proctitis-continue PPI
Chronic normocytic anemia -hemoglobin near baseline.
Depression-continue sertraline
DVT prophylaxis-Eliquis
Full code
Dispo -Home when medically stable. Patient not interested in SNF.
Family updated at the bedside.
Anticipated Discharge: 24 - 48 hours
Subjective/Interval History
-
Date of Service: November 19, 2024
Patient seen and examined. States shortness of breath is improving but not back to baseline yet.
Objective Data
-
Labs:
Laboratory Results
11/19/24
05:15
WBC 10.3
Hgb 9.7 L
Hct 31.3 L
Plt Count 323
Sodium 138
Potassium 4.3
Chloride 102
Carbon Dioxide 31 H
BUN 35 H
Creatinine 0.7
Glucose 152 H
Calcium 8.1 L
Vital Signs:
Vital Signs
Temp Pulse Resp BP Pulse Ox
97.8 F 71 20 121/60 100
11/19/24 11:00 11/19/24 11:00 11/19/24 11:00 11/19/24 11:00 11/19/24 11:00
I&O
11/18/24 11/19/24 11/20/24
06:59 06:59 06:59
Intake Total 2340 / 2340 1680 / 1680
Output Total 3000 / 3000 3700 / 3700 900 / 900
Balance -660 / -660 -2020 / -2020 -900 / -900
Review of Systems
-
History Source: Patient
All other systems: Reviewed and negative
[2024-11-19 15:00] VITALS: BP 144/71
[2024-11-19] MEDS: ZOLOFT 50 MG PO (17:29)
[2024-11-19] MEDS: LIPITOR 80 MG PO (17:29)
[2024-11-19 19:47] VITALS: BP 130/54
[2024-11-19] MEDS: SENOKOT 17.2 MG PO (20:26)
[2024-11-19] MEDS: COLACE 100 MG PO (20:27)
[2024-11-19 23:30] VITALS: BP 148/69
[2024-11-20 03:25] VITALS: BP 123/60
[2024-11-20 05:31] LABS: Hematocrit 31.1 % (39.0-52.0); Hemoglobin 9.6 g/dL (13.0-18.0); Mean Corp Hgb Conc. 30.9 g/dL (33.0-37.0); Mean Corpuscular Hgb 26.2 pg (27.0-31.0); Mean Corpuscular Volume 84.7 fL (80.0-94.0); Platelet Count 314 10^3/uL (130-400); Red Blood Cell Count 3.67 10^6/uL (4.70-6.10); Red Cell Dist. Width 21.4 % (11.5-14.5); White Blood Cell Count 8.4 10^3/uL (4.8-10.8)
[2024-11-20 05:58] LABS: Blood Urea Nitrogen 32 mg/dl (9-20); Calcium 8.2 mg/dl (8.4-10.2); Carbon Dioxide 32 mmol/L (22-30); Chloride 103 mmol/L (98-107); Estimated Creatinine Clearance 108 ml/min; Glucose 146 mg/dl (70-99); Potassium 3.8 mmol/L (3.5-5.1); Sodium 138 mmol/L (135-145); eGFR > 60.00
[2024-11-20 06:38] VITALS: BMI 29.3
[2024-11-20] MEDS: DELTASONE 5 MG PO ×2 (08:31→19:37)
[2024-11-20] MEDS: PROTONIX 40 MG PO ×2 (08:31→19:37)
[2024-11-20] MEDS: MS CONTIN (EXTENDED RELEASE) 30 MG PO ×2 (08:32→19:37)
[2024-11-20] MEDS: COLACE 100 MG PO (08:32)
[2024-11-20] MEDS: SENOKOT 17.2 MG PO (08:32)
[2024-11-20] MEDS: TYLENOL 1000 MG PO ×2 (08:32→19:36)
[2024-11-20] MEDS: OSCAL 500 + D 1000 MG PO ×2 (08:32→19:37)
[2024-11-20] MEDS: TOPROL XL 50 MG PO (08:33)
[2024-11-20] MEDS: THERAGRAN 1 TABLET PO (08:34)
[2024-11-20] MEDS: ELIQUIS 5 MG PO ×2 (08:34→19:36)
[2024-11-20] MEDS: LASIX 40 MG IV ×2 (08:34→16:36)
[2024-11-20] MEDS: MIRALAX PO ×2 (08:35→08:48)
--- NOTE | 2024-11-20 09:32 | W.PN.ID1 ---
Date of Service
Date of Service: November 20, 2024
Today's Communication
- final dose of ceftriaxone today at noon, tomorrow start cefdinir 300 mg po BID x 7 days total: 11/17- 11/23
- follow up with PCP/oncology
Assessment / Plan
Probable Enterobacter Bacteremia
Possible UTI - initial cx mixed aylin, follow up E coli
Metastatic prostate cancer on chemotherapy
Port
- 11/17 blood culture s epi/strep and second set with enterobacter - suspect all from polymicrobial urine culture or gram positives may be contaminated blood cultures
- repeat blood cultures x2 in progress no growth to date
- polymicrobial urine due to necessary straight caths most likely the source of bacteremia, unlikely port
- TTE nonrevealing
- final dose of ceftriaxone today at noon, tomorrow start cefdinir 300 mg po BID x 7 days total: 11/17- 11/23
- follow up with PCP
Chief Complaint
-: UTI and Bacteremia
Subjective / Review of Systems
afebrile
bp stable
on his baseline O2 at 3L
Vital Signs / Physical Exam
Vital Signs
Vital Signs
Temp Pulse Resp BP Pulse Ox
98.1 F 80 18 122/61 96
11/20/24 08:00 11/20/24 08:33 11/20/24 08:00 11/20/24 08:33 11/20/24 08:00
Physical Exam
Constitutional: No Acute Distress and Chronically Ill
Cardiovascular: Regular Rate and S1/S2; Negative Murmur or Rub
Pulmonary: Clear and Symmetric; Negative Wheezes or Rales
Gastrointestinal: Soft, Non Tender, Non Distended and Normal Bowel Sounds
Skin: Warm and Dry; Negative Rash or Jaundice
Objective Data
Lab Data
Lab Results
11/20/24 05:04
11/20/24 05:04
PT 15.2 Sec (11.4-14.6) H 11/16/24 05:15
INR 1.15 11/16/24 05:15
APTT Cancelled 11/15/24 18:00
Estimated Creat Clear 108 ml/min 11/20/24 05:04
Lactic Acid 1.2 mmol/L (0.7-2.0) 11/17/24 00:47
Total Bilirubin 0.6 mg/dl (0.2-1.3) 11/14/24 16:21
AST 40 U/L (17-59) 11/14/24 16:21
ALT 46 U/L (0-50) 11/14/24 16:21
Alkaline Phosphatase 127 U/L (38-126) H 11/14/24 16:21
Most recent labs reviewed.
Blood Culture Preliminary 11/19/240938
Positive for Enterobacter cloacae complex.
Performed by [employer] PCR methodology.
Enterobacter cloacae
Organism 1 Enterobacter cloacae
1. Enterobacter cloacae
M.I.C. RX
--------- ---
Amoxicillin/Potas. Clavulanate >16/8 R
Ampicillin >16 R
Ampicillin/Sulbactam >16/8 R
Aztreonam <=4 S
Cefazolin >16 R
Cefepime <=2 S
Ceftazidime <=1 S
Ceftriaxone <=1 S
Ertapenem <=0.5 S
Ciprofloxacin <=0.25 S
Gentamicin <=2 S
Meropenem <=1 S
Piperacillin/Tazobactam <=8 S
Tetracycline <=4 S
Tobramycin <=2 S
Trimethoprim/Sulfamethoxazole <=2/38 S
Micro Results:
11/18/24 09:05 Blood Culture - Preliminary
Blood/Venous No Growth in 48 hours- Final report to follow
11/17/24 00:47 Blood Culture - Final
Blood/Venous Staphylococcus epidermidis
Streptococcus species
Additional testing on request
Gram Stain - Final
11/18/24 09:51 Blood Culture - Preliminary
Blood/Venous No Growth in 24 hours- Final report to follow
11/17/24 00:57 Blood Culture - Preliminary
Blood/Venous Enterobacter cloacae
Gram Stain - Preliminary
11/17/24 09:38 Urine Culture - Final
Urine Escherichia coli
11/15/24 17:56 Urine Culture - Final
Urine
11/17/24 00:47 Influenza Types A & B (ZI) - Final
Nasal Swab Negative for Influenza A & B, NAAT
Negative results must be combined with clinical observations
and patient history.
Nucleic Acid Amplification test (NAAT)performed on the
[employer] platform.
11/14/24 16:21 Influenza Types A & B (ZI) - Final
Nasal Swab Negative for Influenza A & B, NAAT
Negative results must be combined with clinical observations
and patient history.
Nucleic Acid Amplification test (NAAT)performed on the
[employer] platform.
--- NOTE | 2024-11-20 10:09 | W.PN.ONC2 ---
Today's Communication / Plan
-
.
Impression
Impression
Metastatic prostate carcinoma status post progression and second line
Intolerance to taxane
Coronary artery disease status post stents approximately 6 months ago
HFpEF
Atrial fibrillation new onset
Ecoli UTI
Enterobacter bacteremia
Plan
Plan
Unlikely to tolerate additional Taxotere with the current declining performance status
Pluvicto or Jevtana in the future both of which which can be associated with thrombocytopenia
[facility]
Plan for DOAC for AF noted
abx per ID
Subjective/Objective
Subjective
more SOB today compared to yesterday
4 loose stools this am
Vital Signs:
Vital Signs
Temp Pulse Resp BP Pulse Ox
98.1 F 80 18 122/61 96
11/20/24 08:00 11/20/24 08:33 11/20/24 08:00 11/20/24 08:33 11/20/24 08:00
Lab Results:
Laboratory Data
WBC 8.4 10^3/uL (4.8-10.8) 11/20/24 05:04
Hgb 9.6 g/dL (13.0-18.0) L 11/20/24 05:04
Plt Count 314 10^3/uL (130-400) 11/20/24 05:04
PT 15.2 Sec (11.4-14.6) H 11/16/24 05:15
INR 1.15 11/16/24 05:15
APTT Cancelled 11/15/24 18:00
eGFR > 60.00 11/20/24 05:04
Physical Exam
General: Well Developed, Well Nourished, Morbidly Obese
HEENT: Moist mucous membranes, Atraumatic
Respiratory: Decreased in the bases
Cardiac: S1/S2, RRR
GI: Soft, Non Tender, Non Distended
Ext Trace B/L LE edema
Neuro: Awake, Alert, Oriented and AO x 3
Psych: Calm
--- NOTE | 2024-11-20 11:24 | W.PN.CARDCBS ---
Addendum entered and electronically signed by Leroy Bonilla MD 11/20/24 12:49:
I saw and examined the patient.
The Law Enforcement Instructor's note was reviewed and I agree with the note.
Comment: Briefly, 84-year-old man on home 3 L O2 presenting with dyspnea found to be in atrial fibrillation, which is a new diagnosis, and with acute heart failure with preserved ejection fraction
Initially reported improvement in his dyspnea with IV diuresis however today reporting that he is more short of breath
Difficult to assess volume given his body habitus however as renal function remains stable here would continue with IV Lasix and attempt to improve his respiratory status
Ideally would have daily standing weights
Wean oxygen as able
Encouraged out of bed to chair as he is likely becoming deconditioned here
In regards to his atrial fibrillation, has been maintaining sinus rhythm over the weekend based on review of telemetry
Continue Eliquis for stroke prophylaxis
Okay to decrease metoprolol back to his home dose 25 mg twice daily from my standpoint his blood pressure has been marginal here
Original Note:
Today's Communication / Plan
-
Continue IV diuresis
Replete potassium
PT/OT
Obtain standing weight if possible
Impression / Plan
-
PCP: Dr. Cervantes
Cardiology: Dr. Carter
Impression:
Multifactorial dyspnea
Admitted with A-fib, chest pain and CHF 11/14/2024
Acute HFpEF, proBNP 4740 at presentation
Newly diagnosed A-fib with RVR, spontaneously converted to sinus
Abnormal troponin/nonischemic myocardial injury, peak 0.096
CAD
s/p 2.25 mm and 2.5 mm Medtronic [place] THOMAS to distal to apical LAD 06/12/24
EF 37% by Lexiscan mibi 05/21/24, but 60-65% by echo 06/11/24
Metastatic prostate cancer
Febrile Nov 17 2024
Hyperlipidemia, LDL 195
Hyperglycemia, HgbA1c 6.5%
Lexiscan nuclear stress test 05/21/2024: Myocardial perfusion imaging without definite evidence of scan ischemia or scar, inferior soft tissue attenuation artifact present, EF 39%
Echo 04/01/23: Normal BiV size and function without wall motion abnormality, mild concentric LVH, no significant valve disease
Echo 06/11/24: EF 60 to 65%, no WMA, no MR, no /AR
Echo Nov 15 2024: EF 55 to 60%, no regional wall motion abnormalities noted, moderate concentric LVH, no significant valvular disease
Plan:
-Presented 11/14/2024 with shortness of breath and found to be in new onset atrial fibrillation with rapid ventricular response as well as acute heart failure with preserved ejection fraction
His dyspnea may be multifactorial. On home oxygen at 3 L/min via nasal cannula
-Heart failure with preserved ejection fraction, proBNP 4470
Shortness of breath continues to improve with IV diuresis, but still requiring 3L O2 via NC which is his home requirement
Continue IV diuresis with lasix 40 mg IV BID.
BUN/creatinine remained stable 32/0.6
Would replete potassium at 3.8. Give 40 mEq now, ordered by me
Weights have been up and down. Unclear accuracy as built in bed scale weights have been obtained. Would obtain standing weight if possible.
Continue to monitor I&O and daily wts
Repeat chest x-ray 11/20/2024 shows likely bibasilar subsegmental atelectasis.
EF is preserved by echo this admission
Patient is not chronically on SGLT2 inhibitor. Would hold off for now with possible UTI.
-He presented in atrial fibrillation and spontaneously converted to sinus rhythm.
Remains in sinus rhythm
Continue outpatient Toprol
Due to his metastatic prostate cancer, and history of GI bleeding 07/2024, he is felt to be at elevated bleeding risk and after discussion with oncology it was recommended that he stop Plavix in favor of monotherapy with Eliquis.
New to Eliquis this admission
Abnormal troponin, suspect nonischemic myocardial injury secondary to atrial fibrillation with rapid ventricular response and acute heart failure, peak troponin 0.096.
Continue Lipitor 80 mg daily for hyperlipidemia.
Amlodipine is on hold. Blood pressure is reasonably controlled. Would hold on resuming at this point.
Probable Enterobacter Bacteremia concern for UTI. Ongoing treatment with IV antibiotics per ID and primary service.
PT/OT
PREADMIT DATA:
-Patient came to [facility] ER last night with chest pain, shortness of breath and was admitted with new A-fib with RVR and CHF and cardiology is now consulted. Patient was seen admitted to 06/11/24 until 06/19/24 with chest pain and had LAD PCI as
outlined above. Despite PCI that admission the patient continued with chest pain and was seen by oncology for metastatic prostate cancer with bony metastasis pain that was treated with radiation therapy prior to beginning chemotherapy. He seemed to
do better for a while and then was admitted again but this time with GIB 07/2024 at which time we decreased his regimen from aspirin and Plavix to Plavix alone. Patient says that he started to have episodes of intermittent SOB again and was getting
frustrated because it seemed like no one could figure out what was going on, so when he had symptoms starting a day and a half ago he stated home rather than seeking help right away. When he came to the ER he was found to be in A-fib with RVR and
evidence of acute HF. He is chronically on oxygen at 3 L NC, but was requiring NRB initially. He says he actually feels relieved that he may have an answer for why he has been having the symptoms and overall feels a bit better since admission.
Progress Note - Varnish Melter Helper
Subjective
Date of Service: November 20, 2024
Patient reports today is a bad day. He went for x-ray earlier this morning and now is extremely exhausted. Still feels short of breath
Objective
Labs:
11/20/24 05:04
11/20/24 05:04
Labs
Hgb 9.6 g/dL (13.0-18.0) L 11/20/24 05:04
Hct 31.1 % (39.0-52.0) L 11/20/24 05:04
Plt Count 314 10^3/uL (130-400) 11/20/24 05:04
PT 15.2 Sec (11.4-14.6) H 11/16/24 05:15
INR 1.15 11/16/24 05:15
APTT Cancelled 11/15/24 18:00
Sodium 138 mmol/L (135-145) 11/20/24 05:04
Potassium 3.8 mmol/L (3.5-5.1) 11/20/24 05:04
BUN 32 mg/dl (9-20) H 11/20/24 05:04
Creatinine 0.6 mg/dL (0.7-1.3) L 11/20/24 05:04
Glucose 146 mg/dl (70-99) H 11/20/24 05:04
Vital Signs and I&O:
Vital Signs
Temp Pulse Resp BP Pulse Ox
98.1 F 80 18 122/61 96
11/20/24 08:00 11/20/24 08:33 11/20/24 08:00 11/20/24 08:33 11/20/24 08:00
Vital Signs
Temp Pulse Resp BP Pulse Ox
98.1 F 80 18 122/61 96
11/20/24 08:00 11/20/24 08:33 11/20/24 08:00 11/20/24 08:33 11/20/24 08:00
Intake & Output
11/18/24 11/19/24 11/20/24 11/21/24
06:59 06:59 06:59 06:59
Intake Total 2340 / 2340 1680 / 1680 1410 / 1410
Output Total 3000 / 3000 3700 / 3700 1575 / 1575
Balance -660 / -660 -2019 / -2020 -165 / -165
Physical Exam
Physical Exam
GEN: No distress, awake, Ox3
HEENT: supple, anicteric, mmm
LUNGS: CTA, no wheezes/rales
CV: Reg, S1/S2, no murmur, rub, gallop
ABD: Obese, soft, BS+, NT/ND
EXT: No edema, clubbing or cyanosis
NEURO: Gross non-focal
SKIN: No rash, warm, dry, pink
[2024-11-20 11:27] VITALS: BP 109/58
[2024-11-20] MEDS: ROCEPHIN 2000 MG IV (11:50)
[2024-11-20] MEDS: STERILE WATER FOR INJECTION 20 ML IV (11:51)
[2024-11-20] MEDS: KCL 40 MEQ PO (11:51)
--- NOTE | 2024-11-20 12:27 | W.PN.HOSP.TC ---
Addendum entered and electronically signed by Андрей Fontenot DO 11/20/24 14:46:
Sepsis present on admission
Original Note:
Today's Communication/Plan
-
Continue current care
Assessment / Plan
Assessment / Plan
Gen-AAOx3, NAD
HEENT-NC, AT, anicteric, clear oral mm
Neck-supple
CV-reg, no M, +S1/S2
Lungs-diminished breath sounds bilaterally
Abd-soft, NT, ND
Ext-1+ edema bilateral lower extremity
Musculoskeletal-no cyanosis, clubbing
Skin-warm and dry
Neuro-grossly non-focal
Psych-calm, cooperative
Sepsis due to Enterobacter bacteremia -currently on IV ceftriaxone, cefdinir orally, ID following. Repeat blood cultures 11/18 negative. Sepsis resolved.
Acute on chronic hypoxic respiratory failure -suspect multifactorial etiology including acute heart failure exacerbation in the setting of rapid atrial fibrillation. Baseline chronic interstitial lung disease.
Patient was on 15 L of nonrebreather, now on nasal cannula 3 L, this is his baseline use at home. Despite patient complaining of worsening shortness of breath, his oxygenation has not changed. Repeat chest x-ray today demonstrates bibasilar
atelectasis without pulmonary edema.
New onset atrial fibrillation with RVR
TSH-normal
Continue Lopressor
Eliquis
History of GI bleed in July 2024-watch for any signs of bleeding
Cardiology following
Currently in sinus rhythm
Acute on chronic HFpEF -clinically improving on IV Lasix. Weight down almost 4 kg since admission. Cardiology requesting standing scale weight.
BNP 4740
November 14 chest x-ray without pulmonary edema.
November 17 chest x-ray with at least top normal pulmonary interstitial markings. Discrepancy may be due to different exposures.
Decompensation likely secondary to A-fib
Echo in May 2024 with EF 60 to 65%
Continue beta-yaneli
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
Elevated troponin-likely nonischemic myocardial injury secondary to above
CAD - with history of stents in May 2024
Continue , statin, beta-yaneli. Plavix discontinued when Eliquis started
Stress test 05/21/2024-no evidence of ischemia or scar. Inferior soft tissue attenuation present.
History of rheumatic heart disease
Essential hypertension -continue beta-yaneli with increased dose. Hold off on amlodipine
DM2 without hyperglycemia - with hemoglobin A1c 6.31 May 2024. Not on diabetes meds at home.
Accu-Cheks and sliding scale coverage
Hyperlipidemia -continue atorvastatin.
Metastatic prostate carcinoma- s/p Radical prostatectomy 2002
History of radiation treatment
On Chemo now and last chemotherapy was 3 weeks ago Taxotere ( Not tolerating well)
Follows up with Dr. Mendez and Dr. Patterson
'Pluvicto or Jevtana in the future both of which which can be associated with thrombocytopenia .Pluvicto has been arranged with [facility] on 12/04' Per Heme
Chronic pain-narcotic dependent-continue Dilaudid, MS Contin, prednisone
History of GI bleed/diverticulosis versus radiation proctitis-continue PPI
Chronic normocytic anemia -hemoglobin near baseline.
Depression-continue sertraline
Obesity due to excess calories
DVT prophylaxis-Eliquis
Full code
Dispo -Home when medically stable. Patient not interested in SNF.
Anticipated Discharge: Within 24 hours
Subjective/Interval History
-
Date of Service: November 20, 2024
Patient seen and examined. States shortness of breath is worse today compared to yesterday.
Objective Data
-
Labs:
Laboratory Results
11/20/24
05:04
WBC 8.4
Hgb 9.6 L
Hct 31.1 L
Plt Count 314
Sodium 138
Potassium 3.8
Chloride 103
Carbon Dioxide 32 H
BUN 32 H
Creatinine 0.6 L
Glucose 146 H
Calcium 8.2 L
Vital Signs:
Vital Signs
Temp Pulse Resp BP Pulse Ox
98.8 F 79 17 109/58 98
11/20/24 11:27 11/20/24 11:27 11/20/24 11:27 11/20/24 11:27 11/20/24 11:27
I&O
11/19/24 11/20/24 11/21/24
06:59 06:59 06:59
Intake Total 1680 / 1680 1410 / 1410
Output Total 3700 / 3700 1575 / 1575
Balance -2020 / -2020 -165 / -165
Review of Systems
-
History Source: Patient
All other systems: Reviewed and negative
--- NOTE | 2024-11-20 14:07 | PN.CDI ---
CDI
- -
CDI:
Physician Documentation Request
Admit Date: 11/14/24 20:23
Dear Doctor,
Please review the following and provide your response in the progress notes.
Clinical Indicators:
Pt admitted with Fatigue and shortness of breath-likely secondary to atrial fibrillation with RVR, acute on chronic hypoxic respiratory failure, and Acute on chronic HFpEF.
11/14 HR on day of admission 128-108, WBC 19.2- 16.9
11/16 Temp 101.7
11/17 Temp 103.6, HR 98, WBC 17.8...
11/18 ID Note: 'Since arrival patient spiking fevers to Tmax 103.6 rectally, satomg 97% on 3L HR 123, BP 148/82, RR 26, WBC 19...11/17 blood cultures x2 E cloacae and 11/17 urine culture E coli 100K,...
- polymicrobial urine due to necessary straight caths most likely the source of bacteremia'
Please clarify the following:
Sepsis was present on admission
Sepsis was not present on admission
Other
Use of terms such as suspected, likely, concern for, or probable (associated with a specific diagnosis that is being evaluated, monitored, or treated as if it exists) are acceptable and can be coded in the inpatient setting, when documented at the
time of discharge.
Thank you,
Jackie Walton RN, BSN
CDI Specialist
[place] [facility]
Please use your independent medical judgment in providing your response.
[2024-11-20 14:58] VITALS: BP 146/56
[2024-11-20 15:56] VITALS: BP 141/66; PULSE 80; O2SAT 98
--- NOTE | 2024-11-20 16:48 | CM ---
Spoke with pt in room .
Reviewed PT OT evals which indicate SNF.
[facility] can accept pt.Pt wants more SNF picks.
Pt requested referral to [facility] and [facility].
Will check for SNF beds.
Oxygen 3 liter Pox 98%.
PLAN To SNF after accepted
[2024-11-20] MEDS: LIPITOR 80 MG PO (17:14)
[2024-11-20] MEDS: ZOLOFT 50 MG PO (17:14)
[2024-11-20 19:00] VITALS: BP 138/71
[2024-11-20] MEDS: TOPROL XL 25 MG PO (19:40)
[2024-11-20] MEDS: COLACE PO (20:13)
[2024-11-20] MEDS: SENOKOT PO (20:13)
[2024-11-20 23:00] VITALS: BP 118/66
[2024-11-21] VITALS (8 sets, daily range): BP systolic 109–149; BP diastolic 62–84; PULSE 78; O2SAT 98; BMI 29.4; BMI 28.7
[2024-11-21 05:48] LABS: Blood Urea Nitrogen 32 mg/dl (9-20); Calcium 8.4 mg/dl (8.4-10.2); Carbon Dioxide 29 mmol/L (22-30); Chloride 105 mmol/L (98-107); Estimated Creatinine Clearance 108 ml/min; Glucose 148 mg/dl (70-99); Potassium 4.3 mmol/L (3.5-5.1); Sodium 140 mmol/L (135-145); eGFR > 60.00
[2024-11-21] MEDS: MS CONTIN (EXTENDED RELEASE) 30 MG PO ×2 (08:03→20:49)
[2024-11-21] MEDS: DELTASONE 5 MG PO ×2 (08:06→20:49)
[2024-11-21] MEDS: OSCAL 500 + D 1000 MG PO ×2 (08:06→20:50)
[2024-11-21] MEDS: THERAGRAN 1 TABLET PO (08:07)
[2024-11-21] MEDS: PROTONIX 40 MG PO ×2 (08:07→20:49)
[2024-11-21] MEDS: ELIQUIS 5 MG PO ×2 (08:07→20:50)
[2024-11-21] MEDS: COLACE 100 MG PO (08:07)
[2024-11-21] MEDS: TYLENOL 1000 MG PO ×2 (08:07→20:50)
[2024-11-21] MEDS: OMNICEF 300 MG PO ×2 (08:08→20:49)
[2024-11-21] MEDS: LASIX 40 MG IV ×2 (08:08→16:09)
[2024-11-21] MEDS: SENOKOT 17.2 MG PO (08:08)
[2024-11-21] MEDS: MIRALAX 17 GRAMS PO (08:10)
[2024-11-21] MEDS: TOPROL XL 25 MG PO ×2 (08:10→20:41)
--- NOTE | 2024-11-21 09:11 | W.PN.CARDCBS ---
Addendum entered and electronically signed by Christiano Torres DO 11/21/24 17:10:
I saw and examined the patient.
The Radio Board Operator Announcer's note was reviewed and I agree with the note.
Comment:
Plan:
Continue IV lasix and will give additional Lasix to equal 60 mg IV this PM
Possible transition to oral lasix next 24-48 hrs
His dyspnea is likely multifactorial
Cont PT/OT
Cont Toprol and Eliquis monotherapy for aFib and CAD
Remains in sinus.
Medical therapy of nonMI troponine
Original Note:
Today's Communication / Plan
-
continue IV lasix. will give extra 20mg this afternoon for total of 60mg IV lasix.
repeat weight via standing scale
PT/OT
continue toprol, eliquis. in SR
Impression / Plan
-
PCP: Dr. Cervantes
Cardiology: Dr. Carter
Impression:
Multifactorial dyspnea
Admitted with A-fib, chest pain and CHF 11/14/2024
Acute HFpEF, proBNP 4740 at presentation
Newly diagnosed A-fib with RVR, spontaneously converted to sinus
Abnormal troponin/nonischemic myocardial injury, peak 0.096
CAD
s/p 2.25 mm and 2.5 mm Medtronic [place] THOMAS to distal to apical LAD 06/12/24
EF 37% by Lexiscan mibi 05/21/24, but 60-65% by echo 06/11/24
Metastatic prostate cancer
Febrile Nov 17 2024
Hyperlipidemia, LDL 195
Hyperglycemia, HgbA1c 6.5%
Lexiscan nuclear stress test 05/21/2024: Myocardial perfusion imaging without definite evidence of scan ischemia or scar, inferior soft tissue attenuation artifact present, EF 39%
Echo 04/01/23: Normal BiV size and function without wall motion abnormality, mild concentric LVH, no significant valve disease
Echo 06/11/24: EF 60 to 65%, no WMA, no MR, no /AR
Echo Nov 15 2024: EF 55 to 60%, no regional wall motion abnormalities noted, moderate concentric LVH, no significant valvular disease
Plan:
-Presented 11/14/2024 with shortness of breath and found to be in new onset atrial fibrillation with rapid ventricular response as well as acute heart failure with preserved ejection fraction
-His dyspnea may be multifactorial. He remains on his home oxygen at 3 L/min via nasal cannula
-he continues with JORGENSEN with minimal activity by his report. remains on IV lasix 40mg BID, will give total of 60mg IV lasix this afternoon. weight stable overnight if accurate, 228 pounds. have asked nurse to repeat weight via standing scale this AM.
Cr stable at 0.6. was on po lasix 40mg daily prior to admission, would likely DC on po lasix 40mg BID when ready
-BMP in 1 week upon DC
-EF preserved by echo this admission
-Patient is not chronically on SGLT2 inhibitor. Would hold off for now as concern for possible UTI.
-He presented in atrial fibrillation and spontaneously converted to sinus rhythm. remains in SR upon review of tele overnight. continue toprol
-Due to his metastatic prostate cancer, and history of GI bleeding 07/2024, he is felt to be at elevated bleeding risk and after discussion with oncology it was recommended that he stop Plavix in favor of monotherapy with Eliquis, which is new this
admission.
-Abnormal troponin, suspect nonischemic myocardial injury secondary to atrial fibrillation with rapid ventricular response and acute heart failure, peak troponin 0.096. could consider for ischemic eval as OP
-Continue Lipitor 80 mg daily for hyperlipidemia.
-OP Amlodipine 2.5mg daily has been on hold, will resume as BPs stable.
-will arrange OP cardiac follow up
-PT/OT
-d/w nursing
PREADMIT DATA:
-Patient came to [facility] ER last night with chest pain, shortness of breath and was admitted with new A-fib with RVR and CHF and cardiology is now consulted. Patient was seen admitted to 06/11/24 until 06/19/24 with chest pain and had LAD PCI as
outlined above. Despite PCI that admission the patient continued with chest pain and was seen by oncology for metastatic prostate cancer with bony metastasis pain that was treated with radiation therapy prior to beginning chemotherapy. He seemed to
do better for a while and then was admitted again but this time with GIB 07/2024 at which time we decreased his regimen from aspirin and Plavix to Plavix alone. Patient says that he started to have episodes of intermittent SOB again and was getting
frustrated because it seemed like no one could figure out what was going on, so when he had symptoms starting a day and a half ago he stated home rather than seeking help right away. When he came to the ER he was found to be in A-fib with RVR and
evidence of acute HF. He is chronically on oxygen at 3 L NC, but was requiring NRB initially. He says he actually feels relieved that he may have an answer for why he has been having the symptoms and overall feels a bit better since admission.
Progress Note - Local Sales Manager
Subjective
Date of Service: November 21, 2024
reports continued SOB with minimal activity
Objective
Labs:
11/20/24 05:04
11/21/24 05:03
Labs
Hgb 9.6 g/dL (13.0-18.0) L 11/20/24 05:04
Hct 31.1 % (39.0-52.0) L 11/20/24 05:04
Plt Count 314 10^3/uL (130-400) 11/20/24 05:04
PT 15.2 Sec (11.4-14.6) H 11/16/24 05:15
INR 1.15 11/16/24 05:15
APTT Cancelled 11/15/24 18:00
Sodium 140 mmol/L (135-145) 11/21/24 05:03
Potassium 4.3 mmol/L (3.5-5.1) 11/21/24 05:03
BUN 32 mg/dl (9-20) H 11/21/24 05:03
Creatinine 0.6 mg/dL (0.7-1.3) L 11/21/24 05:03
Glucose 148 mg/dl (70-99) H 11/21/24 05:03
Vital Signs and I&O:
Vital Signs
Temp Pulse Resp BP Pulse Ox
98.0 F 80 18 134/69 97
11/21/24 07:34 11/21/24 08:10 11/21/24 07:34 11/21/24 08:10 11/21/24 07:34
Vital Signs
Temp Pulse Resp BP Pulse Ox
98.0 F 80 18 134/69 97
11/21/24 07:34 11/21/24 08:10 11/21/24 07:34 11/21/24 08:10 11/21/24 07:34
Intake & Output
11/19/24 11/20/24 11/21/24 11/22/24
07:59 07:59 07:59 07:59
Intake Total 1680 / 1680 1410 / 1410 1560 / 1560
Output Total 3700 / 3700 1575 / 3075 2150 / 2150
Balance -2020 / -2020 -165 / -1665 -590 / -590
Physical Exam
Physical Exam
GEN: No distress, awake, alert, oriented x3. on supp O2
HEENT: supple, anicteric, mmm, eomi
LUNGS: Few crackles B/L bases, no wheezes
CV: Reg, S1/S2, no murmur
ABD: soft, BS+, NT/ND
EXT: No cyanosis, clubbing, edema
NEURO: Gross non-focal
SKIN: Warm, pink, dry. No rash
--- NOTE | 2024-11-21 09:23 | W.PN.ID1 ---
Date of Service
Date of Service: November 21, 2024
Today's Communication
- start cefdinir 300 mg po BID x 7 days total: 11/17- 11/23
- follow up with PCP
Assessment / Plan
Probable Enterobacter Bacteremia
Possible UTI - initial cx mixed aylin, follow up E coli
Metastatic prostate cancer on chemotherapy
Port
- 11/17 blood culture s epi/strep and second set with enterobacter - suspect all from polymicrobial urine culture or gram positives may be contaminated blood cultures
- repeat blood cultures x2 in progress no growth to date
- polymicrobial urine due to necessary straight caths most likely the source of bacteremia, unlikely port
- TTE nonrevealing
- start cefdinir 300 mg po BID x 7 days total: 11/17- 11/23
- follow up with PCP
Chief Complaint
-: UTI and Bacteremia
Subjective / Review of Systems
afebrile
bp stable
sating high 90s on 3L which is his home dose
no events overnight
Vital Signs / Physical Exam
Vital Signs
Vital Signs
Temp Pulse Resp BP Pulse Ox
98.0 F 80 18 134/69 97
11/21/24 07:34 11/21/24 08:10 11/21/24 07:34 11/21/24 08:10 11/21/24 07:34
Physical Exam
Constitutional: No Acute Distress and Chronically Ill
Cardiovascular: Regular Rate and S1/S2; Negative Murmur or Rub
Pulmonary: Clear and Symmetric; Negative Wheezes or Rales
Gastrointestinal: Soft, Non Tender, Non Distended and Normal Bowel Sounds
Skin: Warm and Dry; Negative Rash or Jaundice
Objective Data
Lab Data
Lab Results
11/20/24 05:04
11/21/24 05:03
PT 15.2 Sec (11.4-14.6) H 11/16/24 05:15
INR 1.15 11/16/24 05:15
APTT Cancelled 11/15/24 18:00
Estimated Creat Clear 108 ml/min 11/21/24 05:03
Lactic Acid 1.2 mmol/L (0.7-2.0) 11/17/24 00:47
Total Bilirubin 0.6 mg/dl (0.2-1.3) 11/14/24 16:21
AST 40 U/L (17-59) 11/14/24 16:21
ALT 46 U/L (0-50) 11/14/24 16:21
Alkaline Phosphatase 127 U/L (38-126) H 11/14/24 16:21
Most recent labs reviewed.
Micro Results:
11/18/24 09:05 Blood Culture - Preliminary
Blood/Venous No Growth in 72 hours- Final report to follow
11/18/24 09:51 Blood Culture - Preliminary
Blood/Venous No Growth in 48 hours- Final report to follow
11/17/24 00:47 Blood Culture - Final
Blood/Venous Staphylococcus epidermidis
Streptococcus species
Additional testing on request
Gram Stain - Final
11/17/24 00:57 Blood Culture - Preliminary
Blood/Venous Enterobacter cloacae
Gram Stain - Preliminary
11/17/24 09:38 Urine Culture - Final
Urine Escherichia coli
11/15/24 17:56 Urine Culture - Final
Urine
11/17/24 00:47 Influenza Types A & B (ZI) - Final
Nasal Swab Negative for Influenza A & B, NAAT
Negative results must be combined with clinical observations
and patient history.
Nucleic Acid Amplification test (NAAT)performed on the
[employer] platform.
11/14/24 16:21 Influenza Types A & B (ZI) - Final
Nasal Swab Negative for Influenza A & B, NAAT
Negative results must be combined with clinical observations
and patient history.
Nucleic Acid Amplification test (NAAT)performed on the
[employer] platform.
[2024-11-21] MEDS: STERILE WATER FOR INJECTION IV (12:33)
--- NOTE | 2024-11-21 16:04 | DOWNTIME ---
There was a [employer] Client Sorter Packer Downtime on 11/21/2024 from 1230 to 11/21/2024 at 1550. Downtime documentation of patient's care, including medication administrations, has been reconciled in the electronic record per guidelines. Refer to the
patient's paper chart under the miscellaneous tab to see printed paper medication records and downtime forms.
[2024-11-21] MEDS: LASIX 20 MG IV (16:12)
--- NOTE | 2024-11-21 16:45 | CM ---
Spoke with pt in room.Spoke with Kaylee SO Reviewed PT OT evals which indicate SNF.
Kaylee is his medicare coordinator at home and wishes him to return home with her and [facility] .
They are refusing SNF.
Veronica S liaison aware of [facility] requested.
Oxygen 3 liter Pox 98%.Pt has home oxygen and pt self st caths himself.
PLAN Home with [facility]
--- NOTE | 2024-11-21 16:54 | W.PN.HOSP.TC ---
Today's Communication/Plan
-
continue current care
Assessment / Plan
Assessment / Plan
Gen-AAOx3, NAD
HEENT-NC, AT, anicteric, clear oral mm
Neck-supple
CV-reg, no M, +S1/S2
Lungs-diminished breath sounds bilaterally
Abd-soft, NT, ND
Ext-1+ edema bilateral lower extremity
Musculoskeletal-no cyanosis, clubbing
Skin-warm and dry
Neuro-grossly non-focal
Psych-calm, cooperative
Sepsis due to Enterobacter bacteremia - Repeat blood cultures 11/18 negative. Sepsis resolved. Now on oral Cefdinir until 11/23 as per ID.
Acute on chronic hypoxic respiratory failure -suspect multifactorial etiology including acute heart failure exacerbation in the setting of rapid atrial fibrillation. Baseline chronic interstitial lung disease.
Patient was on 15 L of nonrebreather, now on nasal cannula 3 L, this is his baseline use at home. Despite patient complaining of worsening shortness of breath, his oxygenation has not changed. Repeat chest x-ray 11/20 demonstrates bibasilar
atelectasis without pulmonary edema.
New onset atrial fibrillation with RVR
TSH-normal
Continue Lopressor
Eliquis
History of GI bleed in July 2024-watch for any signs of bleeding
Cardiology following
Currently in sinus rhythm
Acute on chronic HFpEF -clinically improving on IV Lasix. Weight down almost 4 kg since admission. Cardiology requesting standing scale weight. Extra dose IV Lasix ordered today by Cardiology.
BNP 4740
November 14 chest x-ray without pulmonary edema.
November 17 chest x-ray with at least top normal pulmonary interstitial markings. Discrepancy may be due to different exposures.
Decompensation likely secondary to A-fib
Echo in May 2024 with EF 60 to 65%
Continue beta-yaneli
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
Elevated troponin-likely nonischemic myocardial injury secondary to above
Chronic urinary retention - patient does self-catheterization at home.
CAD - with history of stents in May 2024
Continue , statin, beta-yaneli. Plavix discontinued when Eliquis started
Stress test 05/21/2024-no evidence of ischemia or scar. Inferior soft tissue attenuation present.
History of rheumatic heart disease
Essential hypertension -continue beta-yaneli with increased dose. Hold off on amlodipine
DM2 without hyperglycemia - with hemoglobin A1c 6.31 May 2024. Not on diabetes meds at home.
Accu-Cheks and sliding scale coverage
Hyperlipidemia -continue atorvastatin.
Metastatic prostate carcinoma- s/p Radical prostatectomy 2002
History of radiation treatment
On Chemo now and last chemotherapy was 3 weeks ago Taxotere ( Not tolerating well)
Follows up with Dr. Mendez and Dr. Patterson
'Pluvicto or Jevtana in the future both of which which can be associated with thrombocytopenia .Pluvicto has been arranged with [facility] on 12/04' Per Heme
Chronic pain syndrome / chronic opioid dependence -continue Dilaudid, MS Contin, prednisone.
History of GI bleed/diverticulosis versus radiation proctitis-continue PPI
Chronic normocytic anemia -hemoglobin near baseline.
Depression-continue sertraline
Obesity due to excess calories
DVT prophylaxis-Eliquis
Full code
Dispo -Home when medically stable. Patient not interested in SNF. Case management aware.
Family updated at bedside.
Anticipated Discharge: > 48 hours
Subjective/Interval History
-
Date of Service: November 21, 2024
Patient seen/examined. Still with JORGENSEN, no change.
Objective Data
-
Labs:
Laboratory Results
11/21/24
05:03
Sodium 140
Potassium 4.3
Chloride 105
Carbon Dioxide 29
BUN 32 H
Creatinine 0.6 L
Glucose 148 H
Calcium 8.4
Vital Signs:
Vital Signs
Temp Pulse Resp BP Pulse Ox
98.6 F 81 17 126/65 98
11/21/24 15:59 11/21/24 16:12 11/21/24 15:59 11/21/24 16:12 11/21/24 15:59
I&O
11/20/24 11/21/24 11/22/24
06:59 06:59 06:59
Intake Total 1410 / 1410 1560 / 1560 720 / 720
Output Total 1575 / 1575 2150 / 2150 900 / 900
Balance -165 / -165 -590 / -590 -180 / -180
Review of Systems
-
History Source: Patient
All other systems: Reviewed and negative
[2024-11-21] MEDS: LIPITOR 80 MG PO (17:04)
[2024-11-21] MEDS: ZOLOFT 50 MG PO (17:12)
[2024-11-21] MEDS: COLACE PO (21:03)
[2024-11-21] MEDS: SENOKOT PO (21:04)
[2024-11-22] VITALS (8 sets, daily range): BP systolic 125–148; BP diastolic 63–84; PULSE 75; O2SAT 97; BMI 28.8; BMI 28.6
[2024-11-22 04:57] LABS: Blood Urea Nitrogen 31 mg/dl (9-20); Calcium 8.2 mg/dl (8.4-10.2); Carbon Dioxide 28 mmol/L (22-30); Chloride 104 mmol/L (98-107); Estimated Creatinine Clearance 108 ml/min; Glucose 164 mg/dl (70-99); Potassium 4.2 mmol/L (3.5-5.1); Sodium 140 mmol/L (135-145); eGFR > 60.00
[2024-11-22] MEDS: ELIQUIS 5 MG PO ×2 (07:43→20:55)
[2024-11-22] MEDS: TYLENOL 1000 MG PO ×2 (07:43→20:55)
[2024-11-22] MEDS: NORVASC 2.5 MG PO (07:43)
[2024-11-22] MEDS: MS CONTIN (EXTENDED RELEASE) 30 MG PO ×2 (07:43→20:55)
[2024-11-22] MEDS: OMNICEF 300 MG PO ×2 (07:43→20:54)
[2024-11-22] MEDS: OSCAL 500 + D 1000 MG PO ×2 (07:43→20:55)
[2024-11-22] MEDS: THERAGRAN 1 TABLET PO (07:43)
[2024-11-22] MEDS: LASIX 40 MG IV ×2 (07:44→15:24)
[2024-11-22] MEDS: DELTASONE 5 MG PO ×2 (07:44→20:55)
[2024-11-22] MEDS: SENOKOT 17.2 MG PO (07:44)
[2024-11-22] MEDS: PROTONIX 40 MG PO ×2 (07:44→20:54)
[2024-11-22] MEDS: TOPROL XL 25 MG PO ×2 (07:44→20:55)
[2024-11-22] MEDS: COLACE PO ×2 (07:47→21:02)
[2024-11-22] MEDS: COLACE 100 MG PO (07:56)
[2024-11-22] MEDS: MIRALAX PO ×2 (07:56)
--- NOTE | 2024-11-22 08:32 | W.PN.ONC2 ---
Today's Communication / Plan
-
OP follow up with medical oncology upon discharge
Impression
Impression
Metastatic prostate carcinoma status post progression and second line
Intolerance to taxane
Coronary artery disease status post stents approximately 6 months ago
HFpEF
Atrial fibrillation new onset
Ecoli UTI
Enterobacter bacteremia
Plan
Plan
Unlikely to tolerate additional Taxotere with the current declining performance status
Pluvicto or Jevtana in the future both of which which can be associated with thrombocytopenia
Pluvicto has been arranged with [facility] on 12/04
Plan for DOAC for AF noted
abx per ID
at bedside during visit provided updates, questions answered
Subjective/Objective
Subjective
no new complaints
3L NC
SOB and endurance make it difficult to tolerate physical therapy
Vital Signs:
Vital Signs
Temp Pulse Resp BP Pulse Ox
98.2 F 78 17 136/66 99
11/22/24 07:20 11/22/24 07:20 11/22/24 07:20 11/22/24 07:20 11/22/24 07:20
Lab Results:
Laboratory Data
WBC 8.4 10^3/uL (4.8-10.8) 11/20/24 05:04
Hgb 9.6 g/dL (13.0-18.0) L 11/20/24 05:04
Plt Count 314 10^3/uL (130-400) 11/20/24 05:04
PT 15.2 Sec (11.4-14.6) H 11/16/24 05:15
INR 1.15 11/16/24 05:15
APTT Cancelled 11/15/24 18:00
eGFR > 60.00 11/22/24 04:05
Physical Exam
General: Well Developed, Well Nourished, Morbidly Obese
HEENT: Moist mucous membranes, Atraumatic
Respiratory: Decreased in the bases
Cardiac: S1/S2, RRR
GI: Soft, Non Tender, Non Distended
Ext Trace B/L LE edema
Neuro: Awake, Alert, Oriented and AO x 3
Psych: Calm
--- NOTE | 2024-11-22 09:29 | W.PN.CARDCBS ---
Addendum entered and electronically signed by Andrews Vasquez MD 11/22/24 18:56:
84-year-old man with metastatic prostate cancer admitted on November 14 with new onset atrial fibrillation, rapid ventricular response and acute heart failure. Probably with Enterobacter bacteremia during this admission, possible UTI
PMH: LAD PCI May 2024 for chest pain, which in retrospect could have been related to bone metastasis from prostate cancer. History of GI bleed July 2024, hypertension, hyperlipidemia
PSH: Orthopedic, prostatectomy
Current medications: Acetaminophen, amlodipine 2.5 mg daily, atorvastatin 80 mg a day, morphine 30 mg twice daily, pantoprazole 40 mg twice daily, MiraLAX, prednisone 5 mg twice daily, sertraline 50 mg a day, multivitamins, Colace, apixaban 5 mg
twice daily, furosemide 40 mg IV twice daily, Omnicef, metoprolol ER 25 twice daily
135/64, pulse 90, respiratory 16, afebrile, weight is 101 kg. Admission weight was 105 kg
BUN/creatinine are 31 and 0.6 potassium is 4.2, last hemoglobin was 9.6 on November 20, repeat proBNP is 1200, was 4740 at admission and was 899 in August
Echo EF: 55-60%, moderate LVH, no significant valvular heart disease, could not determine pulmonary artery pressure
Impression:
As per Shruthi Adair below. Agree with findings, assessments, and recommendations, with any additional changes/recommendations noted.
Plan:
He remains very short of breath despite that he has been diuresed about 8 pounds. His echocardiogram is satisfactory, and proBNP has dropped. He is in sinus rhythm and not atrial fibrillation with a rapid ventricular response
At this point I think that his acute on chronic HFpEF is controlled, and dyspnea is multifactorial and not predominantly related to heart failure.
His proBNP has dropped from 4700 to 1200 during his hospital stay, yet his dyspnea is no better
Pulmonary embolism was not present on the CT scan of August 2024, but given hypercoagulable state related to malignancy, will defer to pulmonary and hospitalist as to whether or not CT scan with pulmonary embolism protocol should be repeated.
Will transition to oral furosemide in a.m., 40 mg twice daily, on admission he was taking 40 mg once daily
Original Note:
Today's Communication / Plan
-
repeat proBNP
weights via standing scale
continue IV lasix
t/c pulm eval
SOB likely multifactorial
Impression / Plan
-
PCP: Dr. Cervantes
Cardiology: Dr. Carter
Impression:
Multifactorial dyspnea
Admitted with A-fib, chest pain and CHF 11/14/2024
Acute HFpEF, proBNP 4740 at presentation
Newly diagnosed A-fib with RVR, spontaneously converted to sinus
Abnormal troponin/nonischemic myocardial injury, peak 0.096
CAD
s/p 2.25 mm and 2.5 mm [employer] Vista THOMAS to distal to apical LAD 06/12/24
EF 37% by Lexiscan mibi 05/21/24, but 60-65% by echo 06/11/24
Metastatic prostate cancer
Febrile Nov 17 2024
Hyperlipidemia, LDL 195
Hyperglycemia, HgbA1c 6.5%
Lexiscan nuclear stress test 05/21/2024: Myocardial perfusion imaging without definite evidence of scan ischemia or scar, inferior soft tissue attenuation artifact present, EF 39%
Echo 04/01/23: Normal BiV size and function without wall motion abnormality, mild concentric LVH, no significant valve disease
Echo 06/11/24: EF 60 to 65%, no WMA, no MR, no /AR
Echo Nov 15 2024: EF 55 to 60%, no regional wall motion abnormalities noted, moderate concentric LVH, no significant valvular disease
Plan:
- Presented 11/14/2024 with shortness of breath and found to be in new onset atrial fibrillation with rapid ventricular response as well as acute heart failure with preserved ejection fraction
- He spontaneously converted to sinus rhythm and has maintained sinus rhythm since that time by review of telemetry. Continue Toprol.
- Due to his metastatic prostate cancer, and history of GI bleeding 07/2024, he is felt to be at elevated bleeding risk and after discussion with oncology it was recommended that he stop Plavix in favor of monotherapy with Eliquis, which is new this
admission.
- also felt to be in acute CHF and is being diuresed with IV lasix. patient reports despite diuresis with associated weight loss, his breathing is getting worse. he is back to his baseline home O2 requirements (3L NC due to ILD). Cr remains stable.
was on po lasix 40mg daily prior to admission
- unclear if weights are accurate as being completed via bed scale. have asked nursing to weigh patient via standing scale only.
- EF preserved by echo this admission
- repeat proBNP today
- d/w situation above with hospitalist via TT. to consider pulm assessment
- he does have prostate cancer with known widespread bony mets. he had PET scan 11/12/24 without lung mets but does have bony rib mets. ? contributing to symptoms
- Patient is not chronically on SGLT2 inhibitor. Would hold off for now as concern for possible UTI.
- Abnormal troponin, suspect nonischemic myocardial injury secondary to atrial fibrillation with rapid ventricular response and acute heart failure, peak troponin 0.096. could consider for ischemic eval as OP
- continue OP lipitor, norvasc.
- PT/OT
- IS ordered
PREADMIT DATA:
-Patient came to [facility] ER last night with chest pain, shortness of breath and was admitted with new A-fib with RVR and CHF and cardiology is now consulted. Patient was seen admitted to 06/11/24 until 06/19/24 with chest pain and had LAD PCI as
outlined above. Despite PCI that admission the patient continued with chest pain and was seen by oncology for metastatic prostate cancer with bony metastasis pain that was treated with radiation therapy prior to beginning chemotherapy. He seemed to
do better for a while and then was admitted again but this time with GIB 07/2024 at which time we decreased his regimen from aspirin and Plavix to Plavix alone. Patient says that he started to have episodes of intermittent SOB again and was getting
frustrated because it seemed like no one could figure out what was going on, so when he had symptoms starting a day and a half ago he stated home rather than seeking help right away. When he came to the ER he was found to be in A-fib with RVR and
evidence of acute HF. He is chronically on oxygen at 3 L NC, but was requiring NRB initially. He says he actually feels relieved that he may have an answer for why he has been having the symptoms and overall feels a bit better since admission.
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
Subjective
Date of Service: November 22, 2024
reports worsening SOB despite diuresis. no CP
Objective
Labs:
11/20/24 05:04
11/22/24 04:05
Labs
Hgb 9.6 g/dL (13.0-18.0) L 11/20/24 05:04
Hct 31.1 % (39.0-52.0) L 11/20/24 05:04
Plt Count 314 10^3/uL (130-400) 11/20/24 05:04
PT 15.2 Sec (11.4-14.6) H 11/16/24 05:15
INR 1.15 11/16/24 05:15
APTT Cancelled 11/15/24 18:00
Sodium 140 mmol/L (135-145) 11/22/24 04:05
Potassium 4.2 mmol/L (3.5-5.1) 11/22/24 04:05
BUN 31 mg/dl (9-20) H 11/22/24 04:05
Creatinine 0.6 mg/dL (0.7-1.3) L 11/22/24 04:05
Glucose 164 mg/dl (70-99) H 11/22/24 04:05
Vital Signs and I&O:
Vital Signs
Temp Pulse Resp BP Pulse Ox
98.2 F 78 17 136/66 99
11/22/24 07:20 11/22/24 07:20 11/22/24 07:20 11/22/24 07:20 11/22/24 07:20
Vital Signs
Temp Pulse Resp BP Pulse Ox
98.2 F 78 17 136/66 99
11/22/24 07:20 11/22/24 07:20 11/22/24 07:20 11/22/24 07:20 11/22/24 07:20
Intake & Output
11/20/24 11/21/24 11/22/24 11/23/24
07:59 07:59 07:59 07:59
Intake Total 1410 / 1410 1560 / 1560 1680 / 1680
Output Total 1575 / 3075 2150 / 3050 2200 / 2200
Balance -165 / -1665 -590 / -1490 -520 / -520
Physical Exam
Physical Exam
GEN: No distress, awake, alert, oriented x3. on supp O2
HEENT: supple, anicteric, mmm, eomi
LUNGS: Few crackles LLB, no wheezes
CV: Reg, S1/S2, no murmur
ABD: soft, BS+, NT/ND
EXT: No cyanosis, clubbing, edema
NEURO: Gross non-focal
SKIN: Warm, pink, dry. No rash
--- NOTE | 2024-11-22 11:42 | VNURNOTE ---
VN spoke with patient's primary contact, Kaylee. Confirmed with her she [facility] Kaylee had questions about obtaining transportation to/from Dr broussard and chemo. Recommended [employer]. She thinks he has an
account w/them. This author also recommended to check [employer] website for transport assistance for chemo. Will add [employer] consult to resumption referral for further assistance.
--- NOTE | 2024-11-22 12:06 | W.PN.HOSP.TC ---
Today's Communication/Plan
-
Await BNP
Assessment / Plan
Assessment / Plan
Gen-AAOx3, NAD
HEENT-NC, AT, anicteric, clear oral mm
Neck-supple
CV-reg, no M, +S1/S2
Lungs-diminished breath sounds bilaterally
Abd-soft, NT, ND
Ext-1+ edema bilateral lower extremity
Musculoskeletal-no cyanosis, clubbing
Skin-warm and dry
Neuro-grossly non-focal
Psych-calm, cooperative
Sepsis due to Enterobacter bacteremia - Repeat blood cultures 11/18 negative. Sepsis resolved. Now on oral Cefdinir until 11/23 as per ID.
Acute on chronic hypoxic respiratory failure -suspect multifactorial etiology including acute heart failure exacerbation in the setting of rapid atrial fibrillation. Baseline chronic interstitial lung disease.
Patient was on 15 L of nonrebreather, now on nasal cannula 3 L, this is his baseline use at home. Despite patient complaining of worsening shortness of breath, his oxygenation has not changed. Repeat chest x-ray 11/20 demonstrates bibasilar
atelectasis without pulmonary edema.
New onset atrial fibrillation with RVR
TSH-normal
Continue Lopressor
Eliquis
History of GI bleed in July 2024-watch for any signs of bleeding
Cardiology following
Currently in sinus rhythm
Acute on chronic HFpEF -clinically improving on IV Lasix. Weight down almost 4 kg since admission but has subsequently plateaued. Cardiology requesting standing scale weight.
BNP 4740 on admission, repeat pending.
November 14 chest x-ray without pulmonary edema.
November 17 chest x-ray with at least top normal pulmonary interstitial markings. Discrepancy may be due to different exposures.
Decompensation likely secondary to A-fib
Echo in May 2024 with EF 60 to 65%
Continue beta-yaneli
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 Rowley as an outpatient.
Elevated troponin-likely nonischemic myocardial injury secondary to above
Chronic urinary retention - patient does self-catheterization at home.
CAD - with history of stents in May 2024
Continue , statin, beta-yaneli. Plavix discontinued when Eliquis started
Stress test 05/21/2024-no evidence of ischemia or scar. Inferior soft tissue attenuation present.
History of rheumatic heart disease
Essential hypertension -continue beta-yaneli with increased dose. Hold off on amlodipine
DM2 without hyperglycemia - with hemoglobin A1c 6.31 May 2024. Not on diabetes meds at home.
Accu-Cheks and sliding scale coverage
Hyperlipidemia -continue atorvastatin.
Metastatic prostate carcinoma- s/p Radical prostatectomy 2002
History of radiation treatment
On Chemo now and last chemotherapy was 3 weeks ago Taxotere ( Not tolerating well)
Follows up with Dr. Mendez and Dr. Patterson
'Pluvicto or Jevtana in the future both of which which can be associated with thrombocytopenia .Pluvicto has been arranged with [facility] on 12/04' Per Heme
Chronic pain syndrome / chronic opioid dependence -continue Dilaudid, MS Contin, prednisone.
History of GI bleed/diverticulosis versus radiation proctitis-continue PPI
Chronic normocytic anemia -hemoglobin near baseline.
Depression-continue sertraline
Obesity due to excess calories
DVT prophylaxis-Eliquis
Full code
Dispo -Home when medically stable. Patient not interested in SNF. Case management aware.
Family updated at bedside.
Anticipated Discharge: 24 - 48 hours
Subjective/Interval History
-
Date of Service: November 22, 2024
Patient seen and examined. No change in his shortness of breath. No other complaints.
Objective Data
-
Labs:
Laboratory Results
11/22/24
04:05
Sodium 140
Potassium 4.2
Chloride 104
Carbon Dioxide 28
BUN 31 H
Creatinine 0.6 L
Glucose 164 H
Calcium 8.2 L
Vital Signs:
Vital Signs
Temp Pulse Resp BP Pulse Ox
98.0 F 77 18 125/66 98
11/22/24 10:42 11/22/24 10:42 11/22/24 10:42 11/22/24 10:42 11/22/24 10:42
I&O
11/21/24 11/22/24 11/23/24
06:59 06:59 06:59
Intake Total 1560 / 1560 1680 / 1680
Output Total 2150 / 2150 2200 / 2200 200 / 200
Balance -590 / -590 -520 / -520 -200 / -200
Review of Systems
-
History Source: Patient
All other systems: Reviewed and negative
[2024-11-22 15:11] LABS: NT-proBNP 1200 pg/ml
--- NOTE | 2024-11-22 15:45 | W.PN.ID1 ---
Date of Service
Date of Service: November 22, 2024
Today's Communication
- c/w cefdinir 300 mg po BID x 7 days total: 11/17- 11/23
- follow up with PCP
ID service will no longer actively follow this patient please recall for further questions
Assessment / Plan
Probable Enterobacter Bacteremia
Possible UTI - initial cx mixed aylin, follow up E coli
Metastatic prostate cancer on chemotherapy
Port
- 11/17 blood culture s epi/strep and second set with enterobacter - suspect all from polymicrobial urine culture or gram positives may be contaminated blood cultures
- repeat blood cultures x2 in progress no growth to date
- polymicrobial urine due to necessary straight caths most likely the source of bacteremia, unlikely port
- TTE nonrevealing
- c/w cefdinir 300 mg po BID x 7 days total: 11/17- 11/23
- follow up with PCP
ID service will no longer actively follow this patient please recall for further questions
Chief Complaint
-: UTI and Bacteremia
Subjective / Review of Systems
afebrile
bp stable
'I still get so short of breath'
Vital Signs / Physical Exam
Vital Signs
Vital Signs
Temp Pulse Resp BP Pulse Ox
98.1 F 90 16 135/64 98
11/22/24 15:01 11/22/24 15:24 11/22/24 15:01 11/22/24 15:24 11/22/24 15:01
Physical Exam
Constitutional: No Acute Distress, Chronically Ill and Obese
Cardiovascular: Regular Rate and S1/S2; Negative Murmur or Rub
Pulmonary: Clear and Symmetric; Negative Wheezes or Rales
Gastrointestinal: Soft, Non Tender, Non Distended and Normal Bowel Sounds
Skin: Warm and Dry; Negative Rash or Jaundice
Objective Data
Lab Data
Lab Results
11/20/24 05:04
11/22/24 04:05
PT 15.2 Sec (11.4-14.6) H 11/16/24 05:15
INR 1.15 11/16/24 05:15
APTT Cancelled 11/15/24 18:00
Estimated Creat Clear 108 ml/min 11/22/24 04:05
Lactic Acid 1.2 mmol/L (0.7-2.0) 11/17/24 00:47
Total Bilirubin 0.6 mg/dl (0.2-1.3) 11/14/24 16:21
AST 40 U/L (17-59) 11/14/24 16:21
ALT 46 U/L (0-50) 11/14/24 16:21
Alkaline Phosphatase 127 U/L (38-126) H 11/14/24 16:21
Most recent labs reviewed.
Micro Results:
11/18/24 09:51 Blood Culture - Preliminary
Blood/Venous No Growth in 4 days- Final report to follow
11/18/24 09:05 Blood Culture - Preliminary
Blood/Venous No Growth in 4 days- Final report to follow
11/17/24 00:47 Blood Culture - Final
Blood/Venous Staphylococcus epidermidis
Streptococcus species
Additional testing on request
Gram Stain - Final
11/17/24 00:57 Blood Culture - Preliminary
Blood/Venous Enterobacter cloacae
Gram Stain - Preliminary
11/17/24 09:38 Urine Culture - Final
Urine Escherichia coli
11/15/24 17:56 Urine Culture - Final
Urine
11/17/24 00:47 Influenza Types A & B (ZI) - Final
Nasal Swab Negative for Influenza A & B, NAAT
Negative results must be combined with clinical observations
and patient history.
Nucleic Acid Amplification test (NAAT)performed on the
[employer] platform.
11/14/24 16:21 Influenza Types A & B (ZI) - Final
Nasal Swab Negative for Influenza A & B, NAAT
Negative results must be combined with clinical observations
and patient history.
Nucleic Acid Amplification test (NAAT)performed on the
[employer] platform.
--- NOTE | 2024-11-22 17:06 | CON.PUL ---
Consultation
Consultation Request
Date/Time Consultation Requested: 11/22
Date/Time Consultation Performed: 11/22
Reason for Consultation: shortness of breath
Medical History
-
History of Present Illness:
history obtained from hospital records, outpatient records and obtaining history from the patient. 84-year-old male with complex medical history including metastatic prostate cancer, coronary disease, on home oxygen therapy for the past month who
was brought to [facility] on 11/14/24 for chest tightness and shortness of breath. Patient was on 15 L nonrebreather. At baseline he is on 3 L. Pulse 123, breathing at 20, 97%. Patient was thought to be in heart failure, given Lasix and
metoprolol. Patient was also started on heparin therapy for new onset atrial fibrillation with rapid ventricular response and heart failure. Hospital stay was reviewed. Given recent history of GI bleed, Plavix was stopped, Eliquis was started.
Cardiology, oncology, infectious disease were consulted. Patient was started on antibiotics for suspected Enterobacter bacteremia and possible UTI. Despite rate control, treatment for heart failure, abnormal troponin, patient continued to have
shortness of breath. We are asked to comment on his pulmonary process
Note that echocardiogram had normal EF.
Recent PET scan showed widespread bony metastases.
Presently, patient states he has been short of breath for 2 years but he has been progressive recently. He was getting physical therapy at home since May and did not feel it was helping him.
Patient has mild cough but no hemoptysis, dysphagia, choking. He does sleep in a recliner at home. He is unaware of any significant weight gain
.
PMH: Metastatic prostate cancer with bony metastases treated with radiation. History of GI bleed July 2024, now on Eliquis alone, Plavix discontinued. New onset atrial fibrillation with rapid ventricular response 11/14/24, history of anemia
post chemotherapy, mild restriction with severe gas exchange defect TLC 70%, DLCO 40%. History of coronary disease with successful PCI May 2024 on dual antiplatelet therapy with aspirin and Plavix at that time, mild transaminitis,
hypertension, hyperlipidemia, history of basal cell cancer, history of bladder outlet obstruction. History of bilateral hip replacement, prostatectomy, nephrolithiasis
Past Medical History
Past Medical History: None ( see above)
Past Surgical History: None ( see above)
Social History
Tobacco: Smoker ( 56-[id number]-frtc history of smoking, quit many years ago)
Alcohol: None
Drug: None
Personal:
Living: With Family
Employment: Retired
Family History
Family History: Reviewed & Not Pertinent ( family history of prostate cancer, father had sudden in the shower. Mother with pancreatic cancer. Siblings with prostate and breast cancer)
Allergies / Home Medications
Allergies
Allergy/AdvReac Type Severity Reaction Status Date / Time
tetanus toxoid, adsorbed Allergy Hives Verified 11/14/24 16:19
Home Medications
�Medication �Instructions �Recorded �Confirmed �Last Taken �Type
furosemide 20 mg tablet 40 mg PO DAILY Fluid 04/26/23 11/14/24 11/14/24 History
Retention/Swelling
atorvastatin 80 mg tablet 80 mg PO QPM #30 tabs 06/19/24 11/14/24 11/13/24 Rx
clopidogrel 75 mg tablet 75 mg PO DAILY #90 tabs 06/19/24 11/14/24 11/14/24 Rx
metoprolol succinate 25 mg 25 mg PO BID #60 tabs 06/19/24 11/14/24 11/14/24 Rx
tablet,extended release 24 hr
polyethylene glycol 3350 17 gram 17 g PO DAILY #30 ea 06/19/24 11/14/24 11/14/24 Rx
oral powder packet
acetaminophen 500 mg tablet 1,000 mg PO BID Pain 07/29/24 11/14/24 11/14/24 History
(Tylenol Extra Strength)
therapeutic multivitamin 1 tab PO DAILY Supplement 07/29/24 11/14/24 11/14/24 History
ondansetron HCl 8 mg tablet 8 mg PO Q8HPRN PRN nausea 08/18/24 11/14/24 Unknown History
prednisone 10 mg tablet 5 mg PO BID Anti-Inflammatory 08/18/24 11/14/24 11/14/24 History
prochlorperazine maleate 10 mg 10 mg PO Q6HPRN PRN nausea 08/18/24 11/14/24 Unknown History
tablet
sertraline 50 mg tablet 50 mg PO QPM depression/anxiety ##0 08/18/24 11/14/24 11/13/24 History
amlodipine 2.5 mg tablet 2.5 mg PO DAILY #0 tabs 08/22/24 11/14/24 11/14/24 Rx
pantoprazole 40 mg tablet,delayed 40 mg PO BID 30 days #60 tabs 08/22/24 11/14/24 11/14/24 Rx
release
calcium 500 mg (as 2 tab PO BID Supplement 11/14/24 11/14/24 11/14/24 History
carbonate)-vitamin D3 10 mcg (400
unit) tablet (Calcium 500 + D)
hydromorphone 2 mg tablet 2 mg PO Q4HPRN PRN Breakthrough 11/14/24 11/14/24 Unknown History
pain
morphine 30 mg immediate release 30 mg PO BID Pain 11/14/24 11/14/24 11/14/24 History
tablet
sennosides 8.6 mg-docusate sodium 2 tab PO BIDPRN PRN constipation 11/14/24 11/14/24 Unknown History
50 mg tablet
Review of Systems
-
All other systems: Negative unless noted
Vitals / Labs / Diagnostic Testing
Vital Signs
Temp Pulse Resp BP Pulse Ox
98.1 F 90 16 135/64 98
11/22/24 15:01 11/22/24 15:24 11/22/24 15:01 11/22/24 15:24 11/22/24 15:01
Lab Data
11/20/24 05:04
11/22/24 04:05
Microbiology
11/18/24 09:51 Blood/Venous Blood Culture - Preliminary
No Growth in 4 days- Final report to follow
11/18/24 09:05 Blood/Venous Blood Culture - Preliminary
No Growth in 4 days- Final report to follow
11/17/24 00:47 Blood/Venous Blood Culture - Final
Staphylococcus epidermidis
Streptococcus species
Additional testing on request
11/17/24 00:47 Blood/Venous Gram Stain - Final
Diagnostic Testing:
Physical Exam
-
HEENT: Normocephalic, Anicteric and Other (Right anterior chest port)
Cardiovascular: S1/S2, Regular Rhythm, Murmur (n), Rub (n) and Peripheral Edema (n)
Respiratory: Wheeze ( mild), Rales ( mild at base), Rhonchi (n) and Non-Labored Respirations
GI: Soft, Non Distended and Non Tender
Neurology: Awake, Alert, Oriented and No Motor Deficits ( able to sit up without assistance)
Skin: Other ( mild pallor, no rash)
General: Comfortable
Assessment
-
84 year-old with complex medical history including metastatic prostate cancer, mild restriction with severe gas exchange defect, hypoxia on 3 Lhome oxygen, admitted 11/14/24 with worsening shortness of breath requiring 6 L of oxygen, initially
treated for heart failure and mildly elevated troponin and rate controlled. Persistent trends of breath noted. We are asked to comment on pulmonary process
Acute respiratory insufficiency
Admitted 11/14/24
Initially requiring 6 L of oxygen
Suspected heart failure
Elevated proBNP
Normal EF per echo
Atrial fibrillation with rapid ventricular response
New onset, spontaneous conversion to sinus
Initially treated with rate control, anticoagulation
Plavix discontinued, Eliquis started
Coronary disease with history of recent stent May 2024
Elevated troponin on admission
Leukocytosis resolved
Bacteremia with Enterobacter, UTI
Anemia, hemoglobin 9.6
11.8 on admission
Incomplete right bundle branch block, baseline
Conditions present prior to admission
Metastatic prostate cancer, bone
History of prostatectomy, radiation
Anemia
Chronic hypoxia on home oxygen, 3 L
Interstitial disease with subpleural scarring, calcification
Scattered pulmonary nodules
Suspected sleep disorder breathing
Excessive daytime sleepiness, insomnia
Mild restriction with severe gas exchange defect
TLC 70%, TLC of 40%
Family history cancer (breast, pancreas, prostate)
Plan/recommendations
Patient with complex medical history
Describes 2 years of shortness of breath, progressive recently
Patient appears to be relatively sedentary since May 2024 after his coronary catheterization, stent placement
Was undergoing physical therapy at home. Despite this, describes progressive shortness of breath
Reviewed abdominal CT 11/18/24. Lung bases at that time unremarkable
Chest x-ray with what appears to be chronic interstitial changes but this is not significant on CT chest 09/19/24
Patient is also on Eliquis therapy and was briefly on heparin therapy on admission for new onset atrial fibrillation.
Suspect his shortness of breath is multifactorial
Moving forward
Patient describes significant deconditioning over the last 6 months
Check ambulatory saturation. Ambulatory test in the office revealed desaturation 87%, improved with 2-3 L
If there is significant hypoxia with supplemental oxygen will obtain CT angiogram to rule of pulmonary embolism
Check lower extremity Dopplers
Obtain EKG
Cardiology correspondence reviewed
Unclear whether patient may be having ongoing cardiac issues but has not responded favorably to diuresis
Recent catheterization May 2024 noted
Cardiology continues to follow
Review above at length with patient
Will follow
[2024-11-22] MEDS: LIPITOR 80 MG PO (17:53)
[2024-11-22] MEDS: ZOLOFT 50 MG PO (17:59)
[2024-11-22 18:09] LABS: Magnesium 2.1 mg/dl (1.6-2.3)
[2024-11-22] MEDS: SENOKOT PO (21:01)
[2024-11-23 03:19] VITALS: BP 133/77
[2024-11-23 03:45] LABS: B.E. 2.6 mmol/L; HCO3 27.2 mmol/L (21-28); O2 Saturation % 99.9 % (94-98); PCO2 41 mmHg (35-48); PO2 126 mmHg (83-108); pH 7.43 (7.35-7.45)
[2024-11-23 03:46] LABS: O2 Therapy ROOM AIR
[2024-11-23 05:27] LABS: Blood Urea Nitrogen 28 mg/dl (9-20); Calcium 8.4 mg/dl (8.4-10.2); Carbon Dioxide 28 mmol/L (22-30); Chloride 103 mmol/L (98-107); Estimated Creatinine Clearance 108 ml/min; Glucose 153 mg/dl (70-99); Potassium 4.1 mmol/L (3.5-5.1); Sodium 139 mmol/L (135-145); eGFR > 60.00
[2024-11-23 06:13] VITALS: BMI 28.7
[2024-11-23 07:15] VITALS: BP 139/68
[2024-11-23] MEDS: DELTASONE 5 MG PO ×2 (08:09→22:17)
[2024-11-23] MEDS: LASIX 80 MG PO ×2 (08:10→15:42)
[2024-11-23] MEDS: TYLENOL 1000 MG PO ×2 (08:10→22:17)
[2024-11-23] MEDS: COLACE 100 MG PO ×2 (08:10→22:16)
[2024-11-23] MEDS: SENOKOT PO ×2 (08:10→08:25)
[2024-11-23] MEDS: ELIQUIS 5 MG PO ×2 (08:10→22:17)
[2024-11-23] MEDS: THERAGRAN 1 TABLET PO (08:11)
[2024-11-23] MEDS: PROTONIX 40 MG PO ×2 (08:11→22:17)
[2024-11-23] MEDS: MS CONTIN (EXTENDED RELEASE) 30 MG PO ×2 (08:11→22:18)
[2024-11-23] MEDS: NORVASC 2.5 MG PO (08:11)
[2024-11-23] MEDS: OSCAL 500 + D 1000 MG PO ×2 (08:11→22:17)
[2024-11-23] MEDS: TOPROL XL 25 MG PO ×2 (08:12→22:17)
[2024-11-23] MEDS: OMNICEF 300 MG PO ×2 (08:14→22:17)
[2024-11-23] MEDS: MIRALAX PO ×2 (08:14→08:25)
--- NOTE | 2024-11-23 10:28 | CM ---
Reviewed PT OT evals which indicate SNF.
Spoke with Kaylee SO and pt both requested dc to home with resumption of [facility].
Kaylee is his day care director at home.They are refusing SNF.
Veronica Pinto liaison set up [facility] resumption.
Oxygen 3 liter Pox 99%.Pt has home oxygen and pt self st caths himself at home.
PLAN Home with [facility]
[2024-11-23 11:41] VITALS: BP 139/68; PULSE 79; O2SAT 89
--- NOTE | 2024-11-23 11:41 | W.PN.HOSP.TC ---
Today's Communication/Plan
-
Check ambulatory pulse ox on 3 L.
Assessment / Plan
Assessment / Plan
Gen-AAOx3, NAD
HEENT-NC, AT, anicteric, clear oral mm
Neck-supple
CV-reg, no M, +S1/S2
Lungs-diminished breath sounds bilaterally
Abd-soft, NT, ND
Ext-1+ edema bilateral lower extremity
Musculoskeletal-no cyanosis, clubbing
Skin-warm and dry
Neuro-grossly non-focal
Psych-calm, cooperative
Sepsis due to Enterobacter bacteremia - Repeat blood cultures 11/18 negative. Sepsis resolved. Now on oral Cefdinir until 11/23 as per ID.
Acute on chronic hypoxic respiratory failure -suspect multifactorial etiology including acute heart failure exacerbation in the setting of rapid atrial fibrillation. Baseline chronic interstitial lung disease.
Patient was on 15 L of nonrebreather, now on nasal cannula 3 L, this is his baseline use at home. Despite patient complaining of worsening shortness of breath, his oxygenation has not changed. Repeat chest x-ray 11/20 demonstrates bibasilar
atelectasis without pulmonary edema.
Lower extremity venous Doppler ultrasound negative for DVT.
Pulmonary correspondence noted. Anticipate possible CT chest to rule out pulmonary embolism if he desaturates with activity. Although he is already on anticoagulation.
New onset atrial fibrillation with RVR
TSH-normal
Continue Lopressor
Eliquis
History of GI bleed in July 2024-watch for any signs of bleeding
Cardiology following
Currently in sinus rhythm
Acute on chronic HFpEF -Lasix now changed to oral, 80 mg twice daily. Weight down almost 4 kg since admission but has subsequently plateaued. Cardiology requesting standing scale weight.
BNP 4740 on admission, repeat pending.
November 14 chest x-ray without pulmonary edema.
November 17 chest x-ray with at least top normal pulmonary interstitial markings. Discrepancy may be due to different exposures.
Decompensation likely secondary to A-fib
Echo in May 2024 with EF 60 to 65%
Continue beta-yaneli
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 Rowley as an outpatient. Pulmonary consult noted.
Elevated troponin-likely nonischemic myocardial injury secondary to above
Chronic urinary retention - patient does self-catheterization at home.
CAD - with history of stents in May 2024
Continue , statin, beta-yaneli. Plavix discontinued when Eliquis started
Stress test 05/21/2024-no evidence of ischemia or scar. Inferior soft tissue attenuation present.
History of rheumatic heart disease
Essential hypertension -continue beta-yaneli with increased dose. Hold off on amlodipine
DM2 without hyperglycemia - with hemoglobin A1c 6.31 May 2024. Not on diabetes meds at home.
Accu-Cheks and sliding scale coverage
Hyperlipidemia -continue atorvastatin.
Metastatic prostate carcinoma- s/p Radical prostatectomy 2002
History of radiation treatment
On Chemo now and last chemotherapy was 3 weeks ago Taxotere ( Not tolerating well)
Follows up with Dr. Mendez and Dr. Patterson
'Pluvicto or Jevtana in the future both of which which can be associated with thrombocytopenia .Pluvicto has been arranged with [facility] on 12/04' Per Heme
Chronic pain syndrome / chronic opioid dependence -continue Dilaudid, MS Contin, prednisone.
History of GI bleed/diverticulosis versus radiation proctitis-continue PPI
Chronic normocytic anemia -hemoglobin near baseline.
Depression-continue sertraline
Obesity due to excess calories
DVT prophylaxis-Eliquis
Full code
Dispo -Home when medically stable. Patient not interested in SNF. Case management aware.
Anticipated Discharge: Within 24 hours
Subjective/Interval History
-
Date of Service: November 23, 2024
Patient seen and examined. Still with dyspnea on exertion. No change.
Objective Data
-
Labs:
Laboratory Results
11/23/24 11/23/24
03:39 04:14
HCO3 27.2
Sodium 139
Potassium 4.1
Chloride 103
Carbon Dioxide 28
BUN 28 H
Creatinine 0.5 L
Glucose 153 H
Calcium 8.4
Vital Signs:
Vital Signs
Temp Pulse Resp BP Pulse Ox
97.7 F 79 18 139/68 99
11/23/24 07:15 11/23/24 08:11 11/23/24 07:15 11/23/24 08:11 11/23/24 07:15
I&O
11/22/24 11/23/24 11/24/24
06:59 06:59 06:59
Intake Total 1680 / 1680 1260 / 1260
Output Total 2200 / 2200 2600 / 2600 750 / 750
Balance -520 / -520 -1340 / -1340 -750 / -750
Review of Systems
-
History Source: Patient
All other systems: Reviewed and negative
[2024-11-23 11:51] VITALS: BP 121/65
--- NOTE | 2024-11-23 13:58 | W.PN.CARDCBS ---
Today's Communication / Plan
-
Volume status appears clinically stable now converted to oral diuretic. Improved proBNP.
Continues with dyspnea. Continue pulmonary assessment
Dyspnea likely multifactorial initially related to A-fib, and increased volume.
Contributing factors include underlying lung related issues, body habitus and deconditioning. Continue to maximize.
Impression / Plan
-
PCP: Dr. Cervantes
Cardiology: Dr. Carter
Impression:
Multifactorial dyspnea
Admitted with A-fib, chest pain and CHF 11/14/2024
Acute HFpEF, proBNP 4740 at presentation
Newly diagnosed A-fib with RVR, spontaneously converted to sinus
Abnormal troponin/nonischemic myocardial injury, peak 0.096
CAD
s/p 2.25 mm and 2.5 mm [employer] [place] THOMAS to distal to apical LAD 06/12/24
EF 37% by Lexiscan mibi 05/21/24, but 60-65% by echo 06/11/24
Metastatic prostate cancer
Febrile Nov 17 2024
Hyperlipidemia, LDL 195
Hyperglycemia, HgbA1c 6.5%
Lexiscan nuclear stress test 05/21/2024: Myocardial perfusion imaging without definite evidence of scan ischemia or scar, inferior soft tissue attenuation artifact present, EF 39%
Echo 04/01/23: Normal BiV size and function without wall motion abnormality, mild concentric LVH, no significant valve disease
Echo 06/11/24: EF 60 to 65%, no WMA, no MR, no /AR
Echo Nov 15 2024: EF 55 to 60%, no regional wall motion abnormalities noted, moderate concentric LVH, no significant valvular disease
Plan:
Despite likely euvolemic status he continues to have rest shortness of breath with subjective dyspnea. Being evaluated also by pulmonary. Deconditioning playing role.
-Initially with new onset atrial fibrillation with rapid ventricular response as well as acute heart failure with preserved ejection fraction. Telemetry independently reviewed and stable.
- He spontaneously converted to sinus rhythm and has maintained sinus rhythm since that time. Continue Toprol. Continue oral anticoagulation.
- Due to his metastatic prostate cancer, and history of GI bleeding 07/2024, he is felt to be at elevated bleeding risk and after discussion with oncology previously it was recommended that he stop Plavix in favor of monotherapy with Eliquis, which
is new this admission.
- Initially also felt to have acute CHF and has been diuresed with IV lasix. However, not much subjective improvement. Cr remains stable. Oral Lasix resumed.
- Unclear if weights are accurate as being completed via bed scale. have asked nursing to weigh patient via standing scale only.
- EF preserved by echo this admission
- proBNP has improved from admission 4740 to 1200 on 11/22/2024.
- Patient is not chronically on SGLT2 inhibitor. Would hold off for now as concern for possible UTI.
- He does have prostate cancer with known widespread bony mets. He had PET scan 11/12/24 without lung mets but does have bony rib mets. ? contributing to symptoms certainly of fatigue and perhaps even perception of shortness of breath
- Abnormal troponin, suspect nonischemic myocardial injury secondary to atrial fibrillation with rapid ventricular response and acute heart failure, peak troponin 0.096. Could consider for ischemic eval as OP. Current symptoms not classic for
angina.
- Continue guideline directed medical therapy for recent stent.
In addition he has known interstitial lung disease which is also contributing to symptomatology.
Conditioning is likely playing one of the biggest role due to his dyspnea. Continue PT/OT. He has refused fdc facility. Continue to work on mobilization.
Cardiac status stable. We will sign off. Please reconsult if new acute cardiac issues. We will make sure patient has follow-up.
PREADMIT DATA:
-Patient came to [facility] last night with chest pain, shortness of breath and was admitted with new A-fib with RVR and CHF and cardiology is now consulted. Patient was seen admitted to 06/11/24 until 06/19/24 with chest pain and had LAD PCI as
outlined above. Despite PCI that admission the patient continued with chest pain and was seen by oncology for metastatic prostate cancer with bony metastasis pain that was treated with radiation therapy prior to beginning chemotherapy. He seemed to
do better for a while and then was admitted again but this time with GIB 07/2024 at which time we decreased his regimen from aspirin and Plavix to Plavix alone. Patient says that he started to have episodes of intermittent SOB again and was getting
frustrated because it seemed like no one could figure out what was going on, so when he had symptoms starting a day and a half ago he stated home rather than seeking help right away. When he came to the ER he was found to be in A-fib with RVR and
evidence of acute HF. He is chronically on oxygen at 3 L NC, but was requiring NRB initially. He says he actually feels relieved that he may have an answer for why he has been having the symptoms and overall feels a bit better since admission.
Progress Note - Home Health Specialist
Subjective
Date of Service: November 23, 2024
He continues to feel short of breath even when sitting/recumbent in the chair. Although breathing appears fairly stable and oxygenation is also stable
Objective
Labs:
11/20/24 05:04
11/23/24 04:14
Labs
Hgb 9.6 g/dL (13.0-18.0) L 11/20/24 05:04
Hct 31.1 % (39.0-52.0) L 11/20/24 05:04
Plt Count 314 10^3/uL (130-400) 11/20/24 05:04
PT 15.2 Sec (11.4-14.6) H 11/16/24 05:15
INR 1.15 11/16/24 05:15
APTT Cancelled 11/15/24 18:00
Sodium 139 mmol/L (135-145) 11/23/24 04:14
Potassium 4.1 mmol/L (3.5-5.1) 11/23/24 04:14
BUN 28 mg/dl (9-20) H 11/23/24 04:14
Creatinine 0.5 mg/dL (0.7-1.3) L 11/23/24 04:14
Glucose 153 mg/dl (70-99) H 11/23/24 04:14
Vital Signs and I&O:
Vital Signs
Temp Pulse Resp BP Pulse Ox
97.4 F 88 20 121/65 93
11/23/24 11:51 11/23/24 11:51 11/23/24 11:51 11/23/24 11:51 11/23/24 11:51
Vital Signs
Temp Pulse Resp BP Pulse Ox
97.4 F 88 20 121/65 93
11/23/24 11:51 11/23/24 11:51 11/23/24 11:51 11/23/24 11:51 11/23/24 11:51
Intake & Output
11/21/24 11/22/24 11/23/24 11/24/24
06:59 06:59 06:59 06:59
Intake Total 1560 / 1560 1680 / 1680 1260 / 1260
Output Total 2150 / 2150 2200 / 2200 2600 / 2600 750 / 750
Balance -590 / -590 -520 / -520 -1340 / -1340 -750 / -750
Physical Exam
Physical Exam
General: Well developed, well nourished in NAD.
Heart: Distant heart sounds regular
Lungs: Coarse breath sounds with few rhonchi
Extremities: No clubbing, cyanosis or edema bilaterally.
Neuro: Grossly nonfocal, awake, alert and oriented x3.
[2024-11-23 15:30] VITALS: BP 123/59
--- NOTE | 2024-11-23 16:16 | W.PN.PUL3 ---
Today's Communication / Plan
-
Obtain CT chest without contrast
Otherwise continue with supportive care
Suspect symptoms are multifactorial
Assessment
-
84 year-old with complex medical history including metastatic prostate cancer, mild restriction with severe gas exchange defect, hypoxia on 3 Lhome oxygen, admitted 11/14/24 with worsening shortness of breath requiring 6 L of oxygen, initially
treated for heart failure and mildly elevated troponin and rate controlled. Persistent trends of breath noted. We are asked to comment on pulmonary process
Acute respiratory insufficiency
Admitted 11/14/24
Initially requiring 6 L of oxygen
Suspected heart failure
Elevated proBNP
Normal EF per echo
Atrial fibrillation with rapid ventricular response
New onset, spontaneous conversion to sinus
Initially treated with rate control, anticoagulation
Plavix discontinued, Eliquis started
Coronary disease with history of recent stent May 2024
Elevated troponin on admission
Leukocytosis resolved
Bacteremia with Enterobacter, UTI
Anemia, hemoglobin 9.6
11.8 on admission
Incomplete right bundle branch block, baseline
Conditions present prior to admission
Metastatic prostate cancer, bone
History of prostatectomy, radiation
Anemia
Chronic hypoxia on home oxygen, 3 L
Interstitial disease with subpleural scarring, calcification
Scattered pulmonary nodules
Suspected sleep disorder breathing
Excessive daytime sleepiness, insomnia
Mild restriction with severe gas exchange defect
TLC 70%, TLC of 40%
Family history cancer (breast, pancreas, prostate)
Plan/recommendations
Patient with complex medical history
Describes 2 years of shortness of breath, progressive recently
Patient appears to be relatively sedentary since May 2024 after his coronary catheterization, stent placement
Was undergoing physical therapy at home. Despite this, describes progressive shortness of breath
Reviewed abdominal CT 11/18/24. Lung bases at that time unremarkable
Chest x-ray with what appears to be chronic interstitial changes but this is not significant on CT chest 09/19/24
Patient is also on Eliquis therapy and was briefly on heparin therapy on admission for new onset atrial fibrillation.
Suspect his shortness of breath is multifactorial
Doppler negative for DVT
EKG with chronic incomplete right bundle branch block
Ambulatory saturation normal
Moving forward
Patient describes significant deconditioning over the last 6 months
Check ambulatory saturation. Ambulatory test in the office revealed desaturation 87%, improved with 2-3 L
Today, ambulated 25 feet, room air, 93%
Given chronic anticoagulation less likely thromboembolic disease
Cardiology correspondence reviewed
Unclear whether patient may be having ongoing cardiac issues but has not responded favorably to diuresis
Recent catheterization May 2024 noted
Cardiology continues to follow
Will order CT chest without contrast
Reviewing PET scan from 11/12/2024, there may be some mild groundglass changes
Suspect symptoms are multifactorial
Review above at length with patient
Will follow
Subjective Data
-
Date of Service:
Date of Service: November 23, 2024
Subjective:
No change in shortness of breath. Ambulatory saturation 93%. Patient sitting in recliner eating dinner, on room air, Doppler negative for DVT
ABG on room air adequate
Objective Data
Data Reviewed
Vital Signs / I&O / Oxygen:
Vital Signs
Temp Pulse Resp BP Pulse Ox
97.7 F 86 20 123/59 94
11/23/24 15:30 11/23/24 15:42 11/23/24 15:30 11/23/24 15:42 11/23/24 15:30
Intake and Output
11/22/24 11/23/24 11/24/24
06:59 06:59 06:59
Intake Total 1680 / 1680 1260 / 1260
Output Total 2200 / 2200 2600 / 2600 750 / 750
Balance -520 / -520 -1340 / -1340 -750 / -750
SaO2 94
Nasal Cannula flow liters per 3
minute
Physical Exam
General: Comfortable
HEENT: Normocephalic and Anicteric
Cardiovascular: S1-S2, Regular Rhythm and Murmur (2/6 systolic murmur)
Respiratory: Wheeze (n), Crackles (n), Rhonchi (n) and Non-Labored Respirations
GI: Soft, Non Distended (Obese) and Non Tender
Neurology: Awake, Alert and No Motor Deficits
Skin: Good Color
Labs/Micro/Reports
Lab Data
11/20/24 05:04
11/23/24 04:14
Laboratory Results
11/23/24
03:39
pH 7.43
pCO2 41
pO2 126 H
HCO3 27.2
O2 Delivery Level Room air
Microbiology
11/17/24 00:57 Blood/Venous Blood Culture - Final
Enterobacter cloacae
11/17/24 00:57 Blood/Venous Gram Stain - Final
11/18/24 09:51 Blood/Venous Blood Culture - Final
No Growth - Final Report
11/18/24 09:05 Blood/Venous Blood Culture - Final
No Growth - Final Report
[2024-11-23] MEDS: LIPITOR 80 MG PO (17:29)
[2024-11-23] MEDS: ZOLOFT 50 MG PO (17:29)
[2024-11-23] MEDS: SENOKOT 17.2 MG PO (22:17)
[2024-11-23 23:30] VITALS: BP 145/63
[2024-11-24 06:00] VITALS: BMI 28.5
[2024-11-24 07:05] VITALS: BP 156/83
[2024-11-24] MEDS: OSCAL 500 + D 1000 MG PO ×2 (09:11→19:42)
[2024-11-24] MEDS: COLACE 100 MG PO (09:11)
[2024-11-24] MEDS: TOPROL XL 25 MG PO ×2 (09:11→19:43)
[2024-11-24] MEDS: DELTASONE 5 MG PO (09:11)
[2024-11-24] MEDS: PROTONIX 40 MG PO ×2 (09:11→19:43)
[2024-11-24] MEDS: TYLENOL 1000 MG PO ×2 (09:11→19:42)
[2024-11-24] MEDS: MS CONTIN (EXTENDED RELEASE) 30 MG PO ×2 (09:11→19:42)
[2024-11-24] MEDS: LASIX 80 MG PO ×2 (09:11→16:30)
[2024-11-24] MEDS: ELIQUIS 5 MG PO ×2 (09:12→19:42)
[2024-11-24] MEDS: THERAGRAN 1 TABLET PO (09:12)
[2024-11-24] MEDS: MIRALAX PO (09:12)
[2024-11-24] MEDS: NORVASC 2.5 MG PO (09:12)
[2024-11-24] MEDS: SENOKOT 17.2 MG PO (09:12)
--- NOTE | 2024-11-24 10:50 | W.PN.HOSP.TC ---
Today's Communication/Plan
-
CT chest
Assessment / Plan
Assessment / Plan
Gen-AAOx3, NAD
HEENT-NC, AT, anicteric, clear oral mm
Neck-supple
CV-reg, no M, +S1/S2
Lungs-diminished breath sounds bilaterally
Abd-soft, NT, ND
Ext-1+ edema bilateral lower extremity
Musculoskeletal-no cyanosis, clubbing
Skin-warm and dry
Neuro-grossly non-focal
Psych-calm, cooperative
Sepsis due to Enterobacter bacteremia - Repeat blood cultures 11/18 negative. Sepsis resolved. Antibiotics completed.
Acute on chronic hypoxic respiratory failure -suspect multifactorial etiology including acute heart failure exacerbation in the setting of rapid atrial fibrillation. Baseline chronic interstitial lung disease.
Patient was on 15 L of nonrebreather, now on nasal cannula 3 L, this is his baseline use at home. Despite patient complaining of worsening shortness of breath, his oxygenation has not changed. Repeat chest x-ray 11/20 demonstrates bibasilar
atelectasis without pulmonary edema.
Lower extremity venous Doppler ultrasound negative for DVT.
Pulmonary correspondence noted. CT chest pending.
New onset atrial fibrillation with RVR
TSH-normal
Continue Lopressor
Eliquis
History of GI bleed in July 2024-watch for any signs of bleeding
Cardiology following
Currently in sinus rhythm
Acute on chronic HFpEF -Lasix now changed to oral, 80 mg twice daily. Weight down almost 4 kg since admission but has subsequently plateaued. Cardiology requesting standing scale weight.
BNP 4740 on admission, repeat pending.
November 14 chest x-ray without pulmonary edema.
November 17 chest x-ray with at least top normal pulmonary interstitial markings. Discrepancy may be due to different exposures.
Decompensation likely secondary to A-fib
Echo in May 2024 with EF 60 to 65%
Continue beta-yaneli
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 Rowley as an outpatient. Pulmonary consult noted.
Elevated troponin-likely nonischemic myocardial injury secondary to above
Chronic urinary retention - patient does self-catheterization at home.
CAD - with history of stents in May 2024
Continue , statin, beta-yaneli. Plavix discontinued when Eliquis started
Stress test 05/21/2024-no evidence of ischemia or scar. Inferior soft tissue attenuation present.
History of rheumatic heart disease
Essential hypertension -continue beta-yaneli with increased dose. Hold off on amlodipine
DM2 without hyperglycemia - with hemoglobin A1c 6.31 May 2024. Not on diabetes meds at home.
Accu-Cheks and sliding scale coverage
Hyperlipidemia -continue atorvastatin.
Metastatic prostate carcinoma- s/p Radical prostatectomy 2002
History of radiation treatment
On Chemo now and last chemotherapy was 3 weeks ago Taxotere ( Not tolerating well)
Follows up with Dr. Mendez and Dr. Patterson
'Pluvicto or Jevtana in the future both of which which can be associated with thrombocytopenia .Pluvicto has been arranged with [facility] on 12/04' Per Heme
Chronic pain syndrome / chronic opioid dependence -continue Dilaudid, MS Contin, prednisone.
History of GI bleed/diverticulosis versus radiation proctitis-continue PPI
Chronic normocytic anemia -hemoglobin near baseline.
Depression-continue sertraline
Obesity due to excess calories
DVT prophylaxis-Eliquis
Full code
Dispo -Home when medically stable. Patient not interested in SNF. Case management aware.
Anticipated Discharge: Within 24 hours
Subjective/Interval History
-
Date of Service: November 24, 2024
Patient seen and examined. Still with dyspnea on exertion.
Objective Data
-
Vital Signs:
Vital Signs
Temp Pulse Resp BP Pulse Ox
98.2 F 82 19 156/83 93
11/24/24 07:05 11/24/24 07:05 11/24/24 07:05 11/24/24 07:05 11/24/24 07:05
I&O
11/23/24 11/24/24 11/25/24
06:59 06:59 06:59
Intake Total 1260 / 1260 1040 / 1040
Output Total 2600 / 2600 2165 / 2165
Balance -1340 / -1340 -1125 / -1125
Review of Systems
-
History Source: Patient
All other systems: Reviewed and negative
[2024-11-24 15:05] VITALS: BP 148/76
--- NOTE | 2024-11-24 16:10 | W.PN.PUL3 ---
Today's Communication / Plan
-
Given CT chest findings with bilateral groundglass opacities with suspicion for inflammatory pneumonitis given he has continued shortness of breath despite adequate diuresis with net negative >9 L, start systemic steroids
Monitor for insomnia, and treat with melatonin +/- Benadryl in that scenario
Monitor blood glucose while on high-dose steroids, and would recommend using ISS to keep BG at >100 and <180
Maintain SaO2 >90-94%
Check ambulatory pulse oximetry prior to discharge
Encourage incentive spirometer use
Continue NOAC
Patient is stable for discharge from pulmonary perspective pending above recommendations; outpatient pulmonary office follow-up will be arranged.
Pulmonary service will continue to briefly follow along while patient is awaiting discharge
Assessment
-
84 year-old with complex medical history including metastatic prostate cancer, mild restriction with severe gas exchange defect, hypoxia on 3 Lhome oxygen, admitted 11/14/24 with worsening shortness of breath requiring 6 L of oxygen, initially
treated for heart failure and mildly elevated troponin and rate controlled. Persistent trends of breath noted. We are asked to comment on pulmonary process
Acute respiratory insufficiency
Admitted 11/14/24
Initially requiring 6 L of oxygen, now down to room air at rest
Suspected heart failure
Elevated proBNP
Normal EF per echo
Atrial fibrillation with rapid ventricular response
New onset, spontaneous conversion to sinus
Initially treated with rate control, anticoagulation
Plavix discontinued, Eliquis started
Coronary disease with history of recent stent May 2024
Elevated troponin on admission
Leukocytosis resolved
Bacteremia with Enterobacter, UTI
Anemia, hemoglobin 9.6
11.8 on admission
Incomplete right bundle branch block, baseline
Bilateral patchy groundglass opacities: Differential includes an inflammatory pneumonitis versus metastasis versus drug-induced pneumonitis from recent chemotherapy (there are reports of Taxotere induced pneumonitis)
Conditions present prior to admission
Metastatic prostate cancer, bone
History of prostatectomy, radiation
Anemia
Chronic hypoxia on home oxygen, 3 L
Interstitial disease with subpleural scarring, calcification
Scattered pulmonary nodules
Suspected sleep disorder breathing
Excessive daytime sleepiness, insomnia
Mild restriction with severe gas exchange defect
TLC 70%, TLC of 40%
Family history cancer (breast, pancreas, prostate)
Plan/recommendations
Patient with complex medical history
Describes 2 years of shortness of breath, progressive recently
Patient appears to be relatively sedentary since May 2024 after his coronary catheterization, stent placement
Was undergoing physical therapy at home. Despite this, describes progressive shortness of breath
Reviewed abdominal CT 11/18/24. Lung bases at that time unremarkable
Chest x-ray with what appears to be chronic interstitial changes but this is not significant on CT chest 09/19/24
Patient is also on Eliquis therapy and was briefly on heparin therapy on admission for new onset atrial fibrillation.
Suspect his shortness of breath is multifactorial
Doppler negative for DVT
EKG with chronic incomplete right bundle branch block
Ambulatory saturation normal
Patient describes significant deconditioning over the last 6 months
Check ambulatory saturation prior to discharge. Ambulatory test in the office revealed desaturation 87%, improved with 2-3 L
On 11/23, he ambulated 25 feet, room air, 93%
Given chronic anticoagulation less likely thromboembolic disease
Cardiology correspondence reviewed
Unclear whether patient may be having ongoing cardiac issues but has not responded favorably to diuresis
Recent catheterization May 2024 noted
Cardiology continues to follow
Continue with Eliquis
CT chest without contrast repeated today --> shows similar distribution of patchy groundglass opacities/subpleural opacities as the prior PET/CT on 11/12/2024. Given that he has persistent bilateral groundglass opacities concerning for inflammatory
pneumonitis, it would be prudent to give him prednisone taper starting at 0.5 mg/kg (50mg daily, and reduce by 10mg every 5 days until off)
Reviewing PET/CT scan from 11/12/2024, there are mild groundglass changes - he has chronic GGO in the bases + lingula, as this was seen on CTA chest from 04/01/2023
- I compared the patient's PET/CT on 11/12/2024 to prior CTA chest on both 09/19/2024 and 07/29/2024 � the patchy opacification in the right upper lobe and left upper lobe seen on the PET/CT was not present on either of the last 2 prior CTA chest
studies; there was bibasilar atelectasis on prior studies. He has an 8 mm nodule in the RML which has been present since March 2023, indicating benign lesion. This nodule of note was poorly visualized on the PET/CT on 11/12/2024.
Given that the patient remains net negative over 9 L since admission but still remains short of breath with exertion, I feel that his symptoms are predominantly due to an inflammatory pneumonitis, especially given his CT chest findings from today.
- Recommend to start prednisone, starting at 50 mg daily and reduce by 10 mg every fifth day with eventual resumption of his 5 mg BID dosing
- If he develops insomnia then would administer melatonin +/- Benadryl
Suspect symptoms are multifactorial
Review above at length with patient
Patient is stable for discharge and outpatient pulmonary office follow-up will be arranged within the next 1-2 weeks. And he does have an appointment with Dr. Rowley for 01/01/2025 at 10:30 AM which he should keep.
Total time spent today was 38 minutes for this encounter. Time includes reviewing laboratory test/imaging results, reviewing pertinent medical records, obtaining and reviewing medical history, performing an appropriate exam, ordering medications,
tests and procedures. Time also includes documentation of this encounter, coordinating patient care and communicating with other healthcare professionals. Total time does not include separately billed tests performed on this date of service.
Subjective Data
-
Date of Service:
Date of Service: November 24, 2024
Chief Complaint: Pulmonary Follow Up
Subjective:
Patient was seen and evaluated today at bedside. Afebrile overnight. CT chest performed showing bilateral patchy groundglass opacities, which includes a 4.1 cm GGO in the anterior right upper lobe and a 1.1 cm GGO in the anterior left upper lobe.
He is continuing to say he is short of breath with exertion and feels okay with breathing at rest. Currently on room air and appears comfortable. Has a cough with white phlegm being produced. Currently denies chest pain, DURÁN, nausea, fevers or
chills.
Review of Systems
General: Other (Negative unless mentioned above)
Objective Data
Data Reviewed
Vital Signs / I&O / Oxygen:
Vital Signs
Temp Pulse Resp BP Pulse Ox
98.2 F 82 19 156/83 93
11/24/24 07:05 11/24/24 07:05 11/24/24 07:05 11/24/24 07:05 11/24/24 07:05
Intake and Output
11/23/24 11/24/24 11/25/24
06:59 06:59 06:59
Intake Total 1260 / 1260 1040 / 1040
Output Total 2600 / 2600 2165 / 2165
Balance -1340 / -1340 -1125 / -1125
SaO2 93
Nasal Cannula flow liters per 3
minute
Physical Exam
General: Respiratory Distress (n), Comfortable, Chills (n) and Sweats (n)
HEENT: Normocephalic and Anicteric
Cardiovascular: S1-S2, Rub (n) and Peripheral Edema (n)
Respiratory: Wheeze (n), Crackles (Bilaterally), Rhonchi (n) and Non-Labored Respirations
GI: Soft, Distended (Abdominal obesity), Non Tender and Normal Bowel Sounds
Neurology: AO x 3 and Tremors (n)
Skin: Warm, Dry, Cyanosis (n) and Jaundice (n)
Labs/Micro/Reports
Lab Data
11/20/24 05:04
11/23/24 04:14
Microbiology
11/17/24 00:57 Blood/Venous Blood Culture - Final
Enterobacter cloacae
11/17/24 00:57 Blood/Venous Gram Stain - Final
11/18/24 09:51 Blood/Venous Blood Culture - Final
No Growth - Final Report
11/18/24 09:05 Blood/Venous Blood Culture - Final
No Growth - Final Report
[2024-11-24] MEDS: DELTASONE 50 MG PO (16:30)
[2024-11-24] MEDS: ZOLOFT 50 MG PO (18:05)
[2024-11-24] MEDS: LIPITOR 80 MG PO (18:05)
[2024-11-24] MEDS: SENOKOT PO (19:43)
[2024-11-24] MEDS: COLACE PO (19:43)
[2024-11-24 23:00] VITALS: BP 147/70
[2024-11-25 06:00] VITALS: BMI 28.4
[2024-11-25 07:05] VITALS: BP 135/66
[2024-11-25] MEDS: COLACE PO (09:32)
[2024-11-25] MEDS: MIRALAX PO (09:32)
[2024-11-25] MEDS: SENOKOT PO (09:33)
[2024-11-25] MEDS: OSCAL 500 + D 1000 MG PO (09:38)
[2024-11-25] MEDS: LASIX 80 MG PO (09:38)
[2024-11-25] MEDS: THERAGRAN 1 TABLET PO (09:38)
[2024-11-25] MEDS: MS CONTIN (EXTENDED RELEASE) 30 MG PO (09:38)
[2024-11-25] MEDS: ELIQUIS 5 MG PO (09:38)
[2024-11-25] MEDS: DELTASONE 50 MG PO (09:38)
[2024-11-25] MEDS: PROTONIX 40 MG PO (09:39)
[2024-11-25] MEDS: TOPROL XL 25 MG PO (09:39)
[2024-11-25] MEDS: TYLENOL 1000 MG PO (09:39)
[2024-11-25] MEDS: NORVASC 2.5 MG PO (09:48)
--- NOTE | 2024-11-25 11:00 | W.PN.HOSP.TC ---
Today's Communication/Plan
-
Discharge planning
Assessment / Plan
Assessment / Plan
Gen-AAOx3, NAD
HEENT-NC, AT, anicteric, clear oral mm
Neck-supple
CV-reg, no M, +S1/S2
Lungs-diminished breath sounds bilaterally
Abd-soft, NT, ND
Ext-1+ edema bilateral lower extremity
Musculoskeletal-no cyanosis, clubbing
Skin-warm and dry
Neuro-grossly non-focal
Psych-calm, cooperative
Sepsis due to Enterobacter bacteremia - Repeat blood cultures 11/18 negative. Sepsis resolved. Antibiotics completed.
Acute on chronic hypoxic respiratory failure -suspect multifactorial etiology including acute heart failure exacerbation in the setting of rapid atrial fibrillation. Baseline chronic interstitial lung disease now with possible inflammatory
pneumonitis noted on CT.
Oxygenation improved, currently on room air. Not hypoxic on exertion. However, he does have home oxygen and was using 3 L [id number] prior to admission.
Despite patient complaining of persistent shortness of breath on exertion, his oxygenation has improved. Repeat chest x-ray 11/20 demonstrates bibasilar atelectasis without pulmonary edema.
Lower extremity venous Doppler ultrasound negative for DVT.
CT chest without contrast 11/24 shows new 4.1 cm irregular shaped groundglass opacity in the anterior segment of the right upper lobe, 1.1 cm region of irregularly shaped groundglass opacity in the anterior segment of the left upper lobe. These
findings are new compared to August 2024 scan. Pulmonary has started high-dose steroids for inflammatory pneumonitis.
New onset atrial fibrillation with RVR
TSH-normal
Continue Lopressor
Eliquis
History of GI bleed in July 2024-watch for any signs of bleeding
Cardiology following
Currently in sinus rhythm
Acute on chronic HFpEF -Lasix now changed to oral, 80 mg twice daily. Weight down almost 4 kg since admission but has subsequently plateaued. Cardiology requesting standing scale weight.
BNP 4740 on admission, repeat pending.
November 14 chest x-ray without pulmonary edema.
November 17 chest x-ray with at least top normal pulmonary interstitial markings. Discrepancy may be due to different exposures.
Decompensation likely secondary to A-fib
Echo in May 2024 with EF 60 to 65%
Continue beta-yaneli
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 Rowley as an outpatient. Pulmonary consult noted.
Elevated troponin-likely nonischemic myocardial injury secondary to above
Chronic urinary retention - patient does self-catheterization at home.
CAD - with history of stents in May 2024
Continue , statin, beta-yaneli. Plavix discontinued when Eliquis started
Stress test 05/21/2024-no evidence of ischemia or scar. Inferior soft tissue attenuation present.
History of rheumatic heart disease
Essential hypertension -continue beta-yaneli with increased dose. Hold off on amlodipine
DM2 without hyperglycemia - with hemoglobin A1c 6.31 May 2024. Not on diabetes meds at home. Not on sliding scale in the hospital. Fasting glucoses have been under control.
Hyperlipidemia -continue atorvastatin.
Metastatic prostate carcinoma- s/p Radical prostatectomy 2002
History of radiation treatment
On Chemo now and last chemotherapy was 3 weeks ago Taxotere ( Not tolerating well)
Follows up with Dr. Mendez and Dr. Patterson
'Pluvicto or Jevtana in the future both of which which can be associated with thrombocytopenia .Pluvicto has been arranged with [facility] on 12/04' Per Heme
Chronic pain syndrome / chronic opioid dependence -continue Dilaudid, MS Contin, prednisone.
History of GI bleed/diverticulosis versus radiation proctitis-continue PPI
Chronic normocytic anemia -hemoglobin near baseline.
Depression-continue sertraline
Obesity due to excess calories
DVT prophylaxis-Eliquis
Full code
Dispo -medically stable for discharge home today. Discussed with patient and he will make arrangements. He is not sure if he can go home today or tomorrow. He will speak with his family. Discussed with nursing.
Anticipated Discharge: Within 24 hours
Subjective/Interval History
-
Date of Service: November 25, 2024
Patient seen and examined. Still complaining of dyspnea on exertion. Currently does not have the oxygen on him as he states his pulse ox was normal this morning.
Objective Data
-
Vital Signs:
Vital Signs
Temp Pulse Resp BP Pulse Ox
97.8 F 85 17 135/66 95
11/25/24 07:05 11/25/24 07:05 11/25/24 07:05 11/25/24 07:05 11/25/24 07:05
I&O
11/24/24 11/25/24 11/26/24
06:59 06:59 06:59
Intake Total 1040 / 1040 960 / 960 480 / 480
Output Total 2165 / 2165 2900 / 2900
Balance -1125 / -1125 -1940 / -1940 480 / 480
Review of Systems
-
History Source: Patient
All other systems: Reviewed and negative
[2024-11-25 12:01] LABS: % Basophils 0.3 % (0-2); % Eosinophils 0.4 % (0-6); % Immature Granulocytes 0.8 % (0-0.5); % Lymphocytes 5.8 % (20.5-51.1); % Neutrophils 85.7 % (42.2-75.2); Absolute Eosinophils 0.1 10^3/uL (0-0.7); Absolute Immature Granulocytes 0.1 10^3/uL (0-0.05); Absolute Lymphocytes 0.9 10^3/uL (1.2-3.4); Absolute Monocytes 1.1 10^3/uL (0.1-0.6); Absolute Neutrophils 13.6 10^3/uL (1.4-6.5); Hematocrit 34.4 % (39.0-52.0); Hemoglobin 10.5 g/dL (13.0-18.0); Mean Corp Hgb Conc. 30.5 g/dL (33.0-37.0); Mean Corpuscular Hgb 25.5 pg (27.0-31.0); Mean Corpuscular Volume 83.5 fL (80.0-94.0); Mean Platelet Volume 9.2 fL (7.4-10.4); Nucleated Red Blood Cells % 0 % (-); Platelet Count 419 10^3/uL (130-400); Red Blood Cell Count 4.12 10^6/uL (4.70-6.10); White Blood Cell Count 15.8 10^3/uL (4.8-10.8)
--- NOTE | 2024-11-25 12:19 | W.DS.TRANS ---
DC Summary - [employer]
-
Discharge Instructions:
Sleep Apnea Risk Intermediate
Discharge Diagnosis/Procedures Sepsis, acute on chronic respiratory failure,
rapid atrial fibrillation, acute on chronic
heart failure, inflammatory pneumonitis
Diet 2 Gram Sodium,Low Cholesterol,Low Fat
Activity As tolerated
Driving Restrictions No driving
Bathing Restrictions None
Blood Work BMP in 1 week
Specialty Instructions Weigh Daily
Instructions: *[facility] Heart Failure Instructions
Stand-Alone Forms:
Changes to Home Medications: Yes
Discharge Medications:
DC Medications w/original date entered in [employer]
atorvastatin 80 mg tablet 80 mg PO QPM #30 tabs 06/19/24
metoprolol succinate 25 mg tablet,extended release 24 hr 25 mg PO BID #60 tabs 06/19/24
polyethylene glycol 3350 17 gram oral powder packet 17 g PO DAILY #30 ea 06/19/24
acetaminophen 500 mg tablet (Tylenol Extra Strength) 1,000 mg PO BID Pain 07/29/24
therapeutic multivitamin 1 tab PO DAILY Supplement 07/29/24
ondansetron HCl 8 mg tablet 8 mg PO Q8HPRN PRN nausea 08/18/24
prochlorperazine maleate 10 mg tablet 10 mg PO Q6HPRN PRN nausea 08/18/24
sertraline 50 mg tablet 50 mg PO QPM depression/anxiety ##0 08/18/24
amlodipine 2.5 mg tablet 2.5 mg PO DAILY #0 tabs 08/22/24
pantoprazole 40 mg tablet,delayed release 40 mg PO BID 30 days #60 tabs 08/22/24
calcium 500 mg (as carbonate)-vitamin D3 10 mcg (400 unit) tablet (Calcium 500 + D) 2 tab PO BID Supplement 11/14/24
hydromorphone 2 mg tablet 2 mg PO Q4HPRN PRN Breakthrough pain 11/14/24
morphine 30 mg immediate release tablet 30 mg PO BID Pain 11/14/24
sennosides 8.6 mg-docusate sodium 50 mg tablet 2 tab PO BIDPRN PRN constipation 11/14/24
apixaban 5 mg tablet (Eliquis) 5 mg PO BID #60 tabs 11/25/24
furosemide 80 mg tablet 80 mg PO BID@0800,1600 #60 tabs 11/25/24
prednisone 10 mg tablet 10 mg PO DIRECTED #60 tabs 11/25/24
Home Medication Changes
Stop clopidogrel
Pending Results: No
--- NOTE | 2024-11-25 12:38 | CM ---
Patient seen at bedside with SO
IMM explained & signed. In chart
[facility] accepted
DC to home today
PLAN: home with [facility]
family to transport
[2024-11-25 14:01] VITALS: BP 142/68
--- NOTE | 2024-11-25 14:10 | W.PN.PUL3 ---
Today's Communication / Plan
-
Given CT chest findings with bilateral groundglass opacities with suspicion for inflammatory pneumonitis given he has continued shortness of breath despite adequate diuresis with net negative >9 L, start systemic steroids
Monitor for insomnia, and treat with melatonin +/- Benadryl in that scenario
Monitor blood glucose while on high-dose steroids, and would recommend using ISS to keep BG at >100 and <180
Maintain SaO2 >90-94%
Check ambulatory pulse oximetry prior to discharge
Encourage incentive spirometer use
Continue NOAC
Patient independent for discharge home today. No additional recommendations at this time. Pulmonary service will now sign off. Outpatient pulmonary office follow-up will be arranged. Please reconsult if there are any additional
questions/concerns, or if patient's respiratory status deteriorates.
Assessment
-
84 year-old with complex medical history including metastatic prostate cancer, mild restriction with severe gas exchange defect, hypoxia on 3 Lhome oxygen, admitted 11/14/24 with worsening shortness of breath requiring 6 L of oxygen, initially
treated for heart failure and mildly elevated troponin and rate controlled. Persistent trends of breath noted. We are asked to comment on pulmonary process
Acute respiratory insufficiency
Admitted 11/14/24
Initially requiring 6 L of oxygen, now down to room air at rest
Suspected heart failure
Elevated proBNP
Normal EF per echo
Atrial fibrillation with rapid ventricular response
New onset, spontaneous conversion to sinus
Initially treated with rate control, anticoagulation
Plavix discontinued, Eliquis started
Coronary disease with history of recent stent May 2024
Elevated troponin on admission
Leukocytosis resolved
Bacteremia with Enterobacter, UTI
Anemia, hemoglobin 9.6
11.8 on admission
Incomplete right bundle branch block, baseline
Bilateral patchy groundglass opacities: Differential includes an inflammatory pneumonitis versus metastasis versus drug-induced pneumonitis from recent chemotherapy (there are reports of Taxotere induced pneumonitis)
Conditions present prior to admission
Metastatic prostate cancer, bone
History of prostatectomy, radiation
Anemia
Chronic hypoxia on home oxygen, 3 L
Interstitial disease with subpleural scarring, calcification
Scattered pulmonary nodules
Suspected sleep disorder breathing
Excessive daytime sleepiness, insomnia
Mild restriction with severe gas exchange defect
TLC 70%, TLC of 40%
Family history cancer (breast, pancreas, prostate)
Plan/recommendations
Patient with complex medical history
Describes 2 years of shortness of breath, progressive recently
Patient appears to be relatively sedentary since May 2024 after his coronary catheterization, stent placement
Was undergoing physical therapy at home. Despite this, describes progressive shortness of breath
Reviewed abdominal CT 11/18/24. Lung bases at that time unremarkable
Chest x-ray with what appears to be chronic interstitial changes but this is not significant on CT chest 09/19/24
Patient is also on Eliquis therapy and was briefly on heparin therapy on admission for new onset atrial fibrillation.
Suspect his shortness of breath is multifactorial
Doppler negative for DVT
EKG with chronic incomplete right bundle branch block
Ambulatory saturation normal
Patient describes significant deconditioning over the last 6 months
Check ambulatory saturation prior to discharge. Ambulatory test in the office revealed desaturation 87%, improved with 2-3 L
On 11/23, he ambulated 25 feet, room air, 93%
Given chronic anticoagulation less likely thromboembolic disease
Cardiology correspondence reviewed
Unclear whether patient may be having ongoing cardiac issues but has not responded favorably to diuresis
Recent catheterization May 2024 noted
Cardiology continues to follow
Continue with Eliquis
CT chest without contrast repeated yesterday (11/24) --> shows similar distribution of patchy groundglass opacities/subpleural opacities as the prior PET/CT on 11/12/2024. Given that he has persistent bilateral groundglass opacities concerning for
inflammatory pneumonitis, it would be prudent to give him prednisone taper starting at 0.5 mg/kg (50mg daily, and reduce by 10mg every 5 days until off)
Reviewing PET/CT scan from 11/12/2024, there are mild groundglass changes - he has chronic GGO in the bases + lingula, as this was seen on CTA chest from 04/01/2023
- I compared the patient's PET/CT on 11/12/2024 to prior CTA chest on both 09/19/2024 and 07/29/2024 � the patchy opacification in the right upper lobe and left upper lobe seen on the PET/CT was not present on either of the last 2 prior CTA chest
studies; there was bibasilar atelectasis on prior studies. He has an 8 mm nodule in the RML which has been present since March 2023, indicating benign lesion. This nodule of note was poorly visualized on the PET/CT on 11/12/2024.
Given that the patient remains net negative over 9 L since admission but still remains short of breath with exertion, I feel that his symptoms are predominantly due to an inflammatory pneumonitis, especially given his CT chest findings from today.
- Recommend to start prednisone, starting at 50 mg daily and reduce by 10 mg every fifth day with eventual resumption of his 5 mg BID dosing
- If he develops insomnia then would administer melatonin +/- Benadryl
Suspect symptoms are multifactorial
Review above at length with patient
Patient is stable for discharge and outpatient pulmonary office follow-up will be arranged within the next 1-2 weeks. And he does have an appointment with Dr. Rowley for 01/01/2025 at 10:30 AM which he should keep.
Patient independent for discharge home today. No additional recommendations at this time. Pulmonary service will now sign off. Thank you for allowing us to be involved in the care of this patient. Please reconsult if there are any additional
questions/concerns, or if patient's respiratory status deteriorates.
Total time spent today was 28 minutes for this encounter. Time includes reviewing laboratory test/imaging results, reviewing pertinent medical records, obtaining and reviewing medical history, performing an appropriate exam, ordering medications,
tests and procedures. Time also includes documentation of this encounter, coordinating patient care and communicating with other healthcare professionals. Total time does not include separately billed tests performed on this date of service.
Subjective Data
-
Date of Service:
Date of Service: November 25, 2024
Chief Complaint: Pulmonary Follow Up
Subjective:
Patient was seen and evaluated today at bedside (late note entry). Afebrile overnight. Still short of breath with exertion but it is improving. Currently denies chest pain, DURÁN, nausea, fevers or chills. Being prepared for discharge today.
Review of Systems
General: Other (Negative unless mentioned above)
Objective Data
Data Reviewed
Vital Signs / I&O / Oxygen:
Vital Signs
Temp Pulse Resp BP Pulse Ox
97.8 F 85 17 135/66 95
11/25/24 07:05 11/25/24 07:05 11/25/24 07:05 11/25/24 07:05 11/25/24 07:05
Intake and Output
11/24/24 11/25/24 11/26/24
06:59 06:59 06:59
Intake Total 1040 / 1040 960 / 960 480 / 480
Output Total 2165 / 2165 2900 / 2900
Balance -1125 / -1125 -1940 / -1940 480 / 480
SaO2 95
Nasal Cannula flow liters per 3
minute
Physical Exam
General: Respiratory Distress (n), Comfortable, Chills (n) and Sweats (n)
HEENT: Normocephalic and Anicteric
Cardiovascular: S1-S2, Rub (n) and Peripheral Edema (n)
Respiratory: Wheeze (n), Crackles (Faintly heard bilaterally), Rhonchi (n) and Non-Labored Respirations
GI: Soft, Distended (Abdominal obesity), Non Tender and Normal Bowel Sounds
Neurology: AO x 3 and Tremors (n)
Skin: Warm, Dry, Cyanosis (n) and Jaundice (n)
Labs/Micro/Reports
Lab Data
11/20/24 05:04
11/23/24 04:14
Microbiology
11/17/24 00:57 Blood/Venous Blood Culture - Final
Enterobacter cloacae
11/17/24 00:57 Blood/Venous Gram Stain - Final
11/18/24 09:51 Blood/Venous Blood Culture - Final
No Growth - Final Report
11/18/24 09:05 Blood/Venous Blood Culture - Final
No Growth - Final Report
== END 2024-11-25 13:58 | disposition home health service (06) | DRG 871 ==
LOC: 3 WEST ACU 20:23
PROVIDERS: Hospitalist; Nurse Practitioner Family; Physician Assistant; ADMITTING PHYSICIAN Internal Medicine; ATTENDING PHYSICIAN Hospitalist; CONSULT PHYSICIAN Internal Medicine Critical Care Medicine; CONSULT PHYSICIAN Internal Medicine Hematology & Oncology; CONSULT PHYSICIAN Student in an Organized Health Care Education/Training Program; EMERGENCY PHYSICIAN Emergency Medicine; FAMILY PHYSICIAN Family Medicine; OTHER PHYSICIAN Nuclear Medicine Nuclear Cardiology
DX: A41.59 Other Gram-negative sepsis (principal); I50.33 Acute on chronic diastolic (congestive) heart failure; J96.21 Acute and chronic respiratory failure with hypoxia; C79.51 Secondary malignant neoplasm of bone; I5A Non-ischemic myocardial injury (non-traumatic); N39.0 Urinary tract infection, site not specified; I48.91 Unspecified atrial fibrillation; I11.0 Hypertensive heart disease with heart failure; Z79.02 Long term (current) use of antithrombotics/antiplatelets; G89.3 Neoplasm related pain (acute) (chronic); C61 Malignant neoplasm of prostate; Z87.891 Personal history of nicotine dependence; Z11.52 Encounter for screening for COVID-19; E78.00 Pure hypercholesterolemia, unspecified; F41.9 Anxiety disorder, unspecified; F32.A Depression, unspecified; E66.09 Other obesity due to excess calories; Z68.28 Body mass index [BMI] 28.0-28.9, adult; J98.4 Other disorders of lung; Z79.899 Other long term (current) drug therapy; Z99.81 Dependence on supplemental oxygen
CPT/HCPCS: 36600; 71045; 71046; 71250; 74177; 80048; 80053; 81003; 81015; 82805; 83605; 83735; 83880; 84153; 84443; 84484; 85025; 85027; 85610; 85730; 86850; 86900; 86901; 87040; 87077; 87086; 87154; 87186; 87205; 87502; 87811; 93005; 93306; 93970; 97110; 97163; 97167; 97530; 97535; 99285; Q9967

== ENCOUNTER → 2024-12-03 16:48 | Outpatient (REF) | payer MEDICARE, OTHER, SELFPAY | LOC: OLAB 16:48 | PROVIDERS: ATTENDING PHYSICIAN Family Medicine; OTHER PHYSICIAN Internal Medicine Hematology & Oncology | DX: C79.51 Secondary malignant neoplasm of bone (principal); I50.20 Unspecified systolic (congestive) heart failure; C61 Malignant neoplasm of prostate | CPT/HCPCS: 36415; 84153 ==

== ENCOUNTER → 2024-12-10 08:18 | Outpatient (REF) | payer MEDICARE, OTHER, SELFPAY ==
[2024-12-10 13:17] LABS: % Basophils 0.3 % (0-2); % Eosinophils 0.3 % (0-6); % Neutrophils 87.4 % (42.2-75.2); Absolute Basophils 0.1 10^3/uL (0-0.2); Absolute Eosinophils 0.1 10^3/uL (0-0.7); Absolute Immature Granulocytes 0.2 10^3/uL (0-0.05); Absolute Lymphocytes 0.8 10^3/uL (1.2-3.4); Absolute Neutrophils 13.9 10^3/uL (1.4-6.5); Hemoglobin 10.5 g/dL (13.0-18.0); Mean Corp Hgb Conc. 30.9 g/dL (33.0-37.0); Mean Platelet Volume 9.4 fL (7.4-10.4); Nucleated Red Blood Cells % 0 % (-); Platelet Count 422 10^3/uL (130-400); Red Cell Dist. Width 20.9 % (11.5-14.5); White Blood Cell Count 15.9 10^3/uL (4.8-10.8)
[2024-12-10 13:31] LABS: ALT (SGPT) 53 U/L (0-50); AST (SGOT) 90 U/L (17-59); Albumin 3.3 g/dl (3.5-5.0); Alkaline Phosphatase 299 U/L (38-126); Blood Urea Nitrogen 25 mg/dl (9-20); Calcium 8.5 mg/dl (8.4-10.2); Carbon Dioxide 25 mmol/L (22-30); Chloride 97 mmol/L (98-107); Glucose 227 mg/dl (70-99); Potassium 3.9 mmol/L (3.5-5.1); Sodium 133 mmol/L (135-145); Total Bilirubin 0.8 mg/dl (0.2-1.3); eGFR > 60.00
[2024-12-10 20:29] LABS: Testosterone, Total 18.8 ng/dl (72-623)
== END ==
LOC: OLAB 08:18
PROVIDERS: ATTENDING PHYSICIAN Internal Medicine; FAMILY PHYSICIAN Family Medicine
DX: C61 Malignant neoplasm of prostate (principal)
CPT/HCPCS: 36415; 80053; 84153; 84403; 85025

== ENCOUNTER → 2024-12-31 16:28 | Outpatient (REF) | payer MEDICARE, OTHER, SELFPAY ==
[2024-12-31 17:14] LABS: Hematocrit 34.5 % (39.0-52.0); Hemoglobin 10.1 g/dL (13.0-18.0); Mean Corp Hgb Conc. 29.3 g/dL (33.0-37.0); Mean Corpuscular Volume 81.4 fL (80.0-94.0); Nucleated Red Blood Cells % 0 % (-); Platelet Count 513 10^3/uL (130-400); Red Cell Dist. Width 21.2 % (11.5-14.5)
[2024-12-31 17:19] LABS: ALT (SGPT) 42 U/L (0-50); AST (SGOT) 40 U/L (17-59); Albumin 3.4 g/dl (3.5-5.0); Alkaline Phosphatase 285 U/L (38-126); Blood Urea Nitrogen 26 mg/dl (9-20); Calcium 8.1 mg/dl (8.4-10.2); Carbon Dioxide 29 mmol/L (22-30); Chloride 99 mmol/L (98-107); Glucose 134 mg/dl (70-99); Potassium 5.1 mmol/L (3.5-5.1); Sodium 137 mmol/L (135-145); Total Protein 6.1 g/dl (6.3-8.2); eGFR > 60.00
== END ==
LOC: OLAB 16:28
PROVIDERS: ATTENDING PHYSICIAN Family Medicine
DX: E87.1 Hypo-osmolality and hyponatremia (principal); R74.8 Abnormal levels of other serum enzymes; D64.9 Anemia, unspecified
CPT/HCPCS: 36415; 80053; 85025

== ENCOUNTER 2025-01-29 12:58 | Inpatient (IN) | payer MEDICARE, OTHER, SELFPAY ==
[2025-01-29] VITALS (17 sets, daily range): BP systolic 102–162; BP diastolic 63–94; BMI 30.3; BMI 29.6
--- NOTE | 2025-01-29 10:01 | ED.GENMED ---
History of Present Illness
<MELISSA Nieves - Last Filed: 01/29/25 11:42>
General
Chief Complaint: Heart Rate Problem
Source: patient
Time Seen by Provider: 01/29/25 09:51
Nursing documentation reviewed up to this point in time: agreed with
History of Present Illness
History of Present Illness:
Patient is an 84-year-old male with past medical history of atrial fibrillation, heart failure, metastatic prostate cancer,(to bone ) inflammatory pneumonitis presents to the ER for evaluation. Patient started with shortness of breath in the middle
of the night which became worse today. He is on chronic oxygen. He denies any recent fever or chills. He is on Eliquis for A-fib and has not missed a dose. In addition he takes 80 mg Lasix twice a day and did take his dose this morning. He
denies extremity swelling. Patient denies any black or dark stool.
Past History
<MELISSA Nieves - Last Filed: 01/29/25 11:42>
Past History
ED Past Medical History: Cancer (Prostate cancer with widespread metastatic disease), Hypercholesterolemia and Other (Rheumatic heart disease)
ED Past Surgical History: Orthopedic and Urological
Social History
Tobacco: Non-smoker
Alcohol: None
Personal:
Living: alone
Employment: Retired
Family History
Family History: Other (Noncontributory)
Phy Exam
<MELISSA Nieves - Last Filed: 01/29/25 11:42>
General Physical Exam
General Presentation: no apparent distress
General age: appears stated age
General Skin: warm and dry
General Habitus: elderly
General Mental: alert
General Hydration: appears well hydrated
Cardiovascular Exam
Cardiovascular Exam: occasionally irregular and tachycardia
Pulmonary Exam
Pulmonary Exam: lungs clear
Gastrointestinal Exam
Gastrointestinal Exam: non tender, soft and other (brown stool heme positive )
Neurological Exam
Neurological Exam: alert and oriented x3
Musculoskeletal Exam
Musculoskeletal Exam: full ROM and other (No lower extremity swelling)
Skin Exam
Skin Exam: normal color and warm/dry
Psychiatric Exam
Psychiatric Exam: normal mood/affect
Course
<MELISSA Nieves - Last Filed: 01/29/25 11:42>
Orders/Labs/Results
Orders:
Orders
01/29/25 09:39
EKG [Electrocardiogram (*1)] Urgent
Reason for Study: Atrial Fibrillation
EKG- Treatment ONCE
01/29/25 10:00
CBC/No Diff [Complete Blood Count/No Diff] Urgent
Comprehensive Metabolic Panel Urgent
PTT Urgent
Pro-BNP [NT-proBNP] Urgent
01/29/25 10:08
Chest [CR Chest - 2 Views ] Urgent
Comment:
Reason For Exam: sob
01/29/25 10:15
Diltiazem 125 mg/125 ml Nss [Cardizem] 125 mg in 125 ml IV PER PROTOCOL
Initial dose in mg/hr, then titrate:: 5
Titrate to keep:: Heart rate 80-100 bpm
Titrate by mg/hr:: 5 mg/hr
Frequency of titrations (minutes):: 15
Maximum dose in mg/hr:: 15
01/29/25 10:51
Furosemide [Lasix] 40 mg IV NOW STA
Abnormal Lab Results
01/29/25
10:00
WBC 14.2 H 10^3/uL
(4.8-10.8)
RBC 3.72 L 10^6/uL
(4.70-6.10)
Hgb 8.9 L g/dL
(13.0-18.0)
Hct 28.8 L %
(39.0-52.0)
MCV 77.4 L fL
(80.0-94.0)
MCH 23.9 L pg
(27.0-31.0)
MCHC 30.9 L g/dL
(33.0-37.0)
RDW 22.2 H %
(11.5-14.5)
APTT 35.5 H Sec
(23.4-35.0)
Chloride 97 L mmol/L
(98-107)
BUN 22 H mg/dl
(9-20)
Creatinine 0.5 L mg/dL
(0.7-1.3)
Glucose 242 H mg/dl
(70-99)
AST 78 H U/L
(17-59)
Alkaline Phosphatase 647 H U/L
(38-126)
Total Protein 6.0 L g/dl
(6.3-8.2)
Albumin 3.3 L g/dl
(3.5-5.0)
01/29/25 10:00
01/29/25 10:00
Vital Signs
Initial and Last Documented VS:
Initial Vital Signs
Pulse Resp
152 31
01/29/25 09:39 01/29/25 09:39
Last Documented Vital Signs
Temp Pulse Resp BP Pulse Ox
97.7 F 128 29 129/70 98
01/29/25 09:40 01/29/25 11:22 01/29/25 09:40 01/29/25 10:10 01/29/25 11:22
[employer] consulted with Physician
[employer] Super[employer] consulted with physician?: Yes
Name of Physician Consulted: Jackie
<Hossein Mejia, DO - Last Filed: 01/29/25 11:33>
Orders/Labs/Results
Orders:
Orders
01/29/25 09:39
EKG [Electrocardiogram (*1)] Urgent
Reason for Study: Atrial Fibrillation
EKG- Treatment ONCE
01/29/25 10:00
CBC/No Diff [Complete Blood Count/No Diff] Urgent
Comprehensive Metabolic Panel Urgent
PTT Urgent
Pro-BNP [NT-proBNP] Urgent
01/29/25 10:08
Chest [CR Chest - 2 Views ] Urgent
Comment:
Reason For Exam: sob
01/29/25 10:15
Diltiazem 125 mg/125 ml Nss [Cardizem] 125 mg in 125 ml IV PER PROTOCOL
Initial dose in mg/hr, then titrate:: 5
Titrate to keep:: Heart rate 80-100 bpm
Titrate by mg/hr:: 5 mg/hr
Frequency of titrations (minutes):: 15
Maximum dose in mg/hr:: 15
01/29/25 10:51
Furosemide [Lasix] 40 mg IV NOW STA
Abnormal Lab Results
01/29/25
10:00
WBC 14.2 H 10^3/uL
(4.8-10.8)
RBC 3.72 L 10^6/uL
(4.70-6.10)
Hgb 8.9 L g/dL
(13.0-18.0)
Hct 28.8 L %
(39.0-52.0)
MCV 77.4 L fL
(80.0-94.0)
MCH 23.9 L pg
(27.0-31.0)
MCHC 30.9 L g/dL
(33.0-37.0)
RDW 22.2 H %
(11.5-14.5)
APTT 35.5 H Sec
(23.4-35.0)
Chloride 97 L mmol/L
(98-107)
BUN 22 H mg/dl
(9-20)
Creatinine 0.5 L mg/dL
(0.7-1.3)
Glucose 242 H mg/dl
(70-99)
AST 78 H U/L
(17-59)
Alkaline Phosphatase 647 H U/L
(38-126)
Total Protein 6.0 L g/dl
(6.3-8.2)
Albumin 3.3 L g/dl
(3.5-5.0)
01/29/25 10:00
01/29/25 10:00
Vital Signs
Initial and Last Documented VS:
Initial Vital Signs
Pulse Resp
152 31
01/29/25 09:39 01/29/25 09:39
Last Documented Vital Signs
Temp Pulse Resp BP Pulse Ox
97.7 F 128 29 129/70 98
01/29/25 09:40 01/29/25 11:22 01/29/25 09:40 01/29/25 10:10 01/29/25 11:22
<MELISSA Nieves - Last Filed: 01/29/25 11:42>
MDM/Problems Addressed
Differential Diagnosis Includes:
Not limited to rapid A-fib CHF anemia interstitial fibrosis
MDM/Problems Addressed:
As documented patient is an 84-year-old male with history of A-fib anticoagulated has not missed a dose, CHF, metastatic prostate cancer presents to the ER complaining of shortness of breath worse since last night. He is on oxygen. He is also on
80 mg Lasix twice a day and has not missed a dose. He did take this morning. Patient presents tachypneic in rapid A-fib patient was given a Cardizem bolus prior to arrival 15 mg and placed on a drip here remains tachycardic his oxygen was
increased and he seems to be a little bit better from the increase in oxygen. He denies any fever chills and is afebrile his white count is elevated at 14,000 his hemoglobin is low at 8.9(decreased from 10.1 December 31) he denies any black or dark
stools and on rectal exam his stool is brown and heme-negative. His BUNs 22 creatinine 0.5 sugar mildly elevated. His alk phosphatase is elevated likely due to cancer. He apparently has prostate cancer with mets to the bones. X-ray reviewed
questional mild pulmonary vascularity. Patient will require admission rapid A-fib a dose of IV Lasix given metastatic
Chronic conditions affecting care:
Metastatic prostate cancer, A-fib, CHF
<MELISSA Nieves - Last Filed: 01/29/25 11:42>
*Radiology
Radiology exam reviewed: radiology read reviewed
*Pulse Oximetry
SaO2: 97
Nasal Cannula flow liters per minute: 3
Oxygen Mode of Delivery: Room air (NAsal canula )
Patient hypoxic: no
*EKG
Interpreted by ED Provider?: Yes
Interpretation: abnormal
Heart Rate: 126
Rate: tachycardiac
Rhythm: a-fib
*Critical Care Note
Total Time (30-74mins, 75-104mins- exclusive of procedures): Not Applicable
comment:
Critical care statement: A total of 40 minutes of critical care time was provided for this patient. This includes management of unstable vital signs, evaluation of the patient at bedside, reviewing the patient's pertinent medical records, discussion
with consultants, review of old EKGs and review of pertinent medical records. This time with separate from time utilized to perform the aforementioned documented procedures
Data Reviewed
Review of Other/Old Records Reveals: Labs, Radiology Studies and Discharge Summary
Source: patient and spouse
<Hossein Mejia DO - Last Filed: 01/29/25 11:33>
*Radiology
Radiology exam reviewed: radiology read reviewed
*Pulse Oximetry
Oxygen Mode of Delivery: Simple mask
Patient hypoxic: yes
*EKG
Interpreted by ED Provider?: Yes
Interpretation: abnormal
Comparison EKG: no comparison EKG present
Heart Rate: 134
Rate: tachycardiac
Rhythm: a-fib
Ischemia: non-specific ST changes
*[employer] Interpretation
Rate: tachycardiac
Interpretation: abnormal
Heart Rate: 132
Rhythm: a-fib
*Critical Care Note
Total Time (30-74mins, 75-104mins- exclusive of procedures): 31
ED Attending Note
<MELISSA Nieves - Last Filed: 01/29/25 11:42>
-
Portions of this chart may have been created with voice recognition software.� Occasional wrong word or��sound alike� substitutions may have occurred due to the inherent limitations of voice recognition software.
<Hossein Mejia DO - Last Filed: 01/29/25 11:33>
ED Attending Note
Patient seen and examined by attending physician: Yes
I performed the substantive portion of visit, reviewed & personally made and approve the management plan that is documented in note by myself or JAMES.: Yes
ED Attending Note:
Seen with nurse practitioner examined independently 84-year-old male presents with shortness of breath fast heart rates that he get a call from EMS prior to his arrival given IV Cardizem, here he looks like he is volume overloaded, he is acute on
chronic anemia still in rapid rates at this time with diuresis tolerated, consideration for transfusion, low threshold to admit
Discharge Plan
Departure
Patient Disposition: Admit
Date of Disposition: 01/29/25
Time of Disposition: 11:41
Admit to: Telemetry
Admit to doctor: hospitalist
Presentation/result/management discussed w/ accepting MD/DO: Hospitalist
Patient with high blood pressure during this ER visit?: No
Condition: Fair
Covid-19: Not Applicable
Discharge Problem:
Atrial fibrillation, rapid, Acute dyspnea, CHF (congestive heart failure)
Prescriptions:
No Action
atorvastatin 80 mg Tablet
80 mg PO QPM Qty: 30 0RF
metoprolol succinate 25 mg Tablet Extended Release 24 Hr
25 mg PO BID Qty: 60 0RF
therapeutic multivitamin Tablet
1 tab PO DAILY
acetaminophen [Tylenol Extra Strength] 500 mg tablet
1,000 mg PO BID
prochlorperazine maleate 10 mg Tablet
10 mg PO Q6HPRN PRN (Reason: nausea)
sertraline 50 mg Tablet
50 mg PO QPM Qty: 0
pantoprazole 40 mg Tablet,Delayed Release (Dr/Ec)
40 mg PO BID 30 Days Qty: 60 0RF
amlodipine 2.5 mg Tablet
2.5 mg PO DAILY Qty: 0 0RF
morphine 30 mg tablet
30 mg PO BID
calcium carbonate-vitamin D3 [Calcium 500 + D] 500 mg-10 mcg (400 unit) Tablet
2 tab PO BID
hydromorphone 2 mg tablet
2 mg PO Q4HPRN PRN (Reason: Breakthrough pain)
furosemide 80 mg Tablet
80 mg PO BID@0800,1600 Qty: 60 0RF
Eliquis 5 mg Tablet
5 mg PO BID Qty: 60 0RF
loperamide 2 mg Tablet
4 mg PO BID
colestipol 1 gram Tablet
1 g PO BID
insulin glargine [Lantus Solostar U-100 Insulin] 100 unit/mL (3 mL) Insulin Pen
10 unit SC DAILY@1200
prednisone 10 mg tablet
5 mg PO BID
Referrals:
Mauro Cervantes MD [Family Provider, Family Practice]
Interventions
Interventions:
*Risk Screen - Suicide Last Done: 01/29/25 09:40
*General Assessment Last Done: 01/29/25 09:40
*Neglect/Abuse Screening Last Done: 01/29/25 09:40
*ED COVID-19 Vaccine History Last Done: 01/29/25 09:40
ED- Cardiac Assessment Last Done: 01/29/25 09:54
ED- Pulmonary Assessment Last Done: 01/29/25 10:59
Discharge Date and Time
Print Language: URUGUAYAN
[2025-01-29 10:16] LABS: Hematocrit 28.8 % (39.0-52.0); Hemoglobin 8.9 g/dL (13.0-18.0); Mean Corp Hgb Conc. 30.9 g/dL (33.0-37.0); Mean Corpuscular Volume 77.4 fL (80.0-94.0); Platelet Count 388 10^3/uL (130-400); Red Cell Dist. Width 22.2 % (11.5-14.5)
[2025-01-29] MEDS: CARDIZEM 125 IV ×2 (10:19→20:07)
[2025-01-29 10:23] LABS: ALT (SGPT) 31 U/L (0-50); AST (SGOT) 78 U/L (17-59); Albumin 3.3 g/dl (3.5-5.0); Alkaline Phosphatase 647 U/L (38-126); Blood Urea Nitrogen 22 mg/dl (9-20); Calcium 9.3 mg/dl (8.4-10.2); Carbon Dioxide 30 mmol/L (22-30); Chloride 97 mmol/L (98-107); Estimated Creatinine Clearance 122 ml/min; Glucose 242 mg/dl (70-99); Potassium 3.9 mmol/L (3.5-5.1); Sodium 135 mmol/L (135-145); Total Protein 6.0 g/dl (6.3-8.2); eGFR > 60.00
[2025-01-29 10:27] LABS: APTT 35.5 Sec (23.4-35.0)
[2025-01-29] MEDS: LASIX 40 MG IV (11:14)
--- NOTE | 2025-01-29 11:46 | HPS.HSE ---
Family Physician
-
Family Physician: Mauro Cervantes
Chief Complaint
-
SOB
History of Present Illness
HPI: 84-year-old male with past medical history of atrial fibrillation on Eliquis (has not missed any dose), heart failure, metastatic prostate cancer (to bone), inflammatory pneumonitis, chronic hypoxia on 3L at home;
p/w shortness of breath and orthopnea.
He denies fever/chills, lower extremity swelling etc.
He is compliant with his medication including Lasix.
In the ED, he was noted to be in A fib RVR and was started with Cardizem drip.
He was given additional IV lasix 40 mg for acute CHF.
Medical History
Past Medical History
Past Medical History: Reports Other (84yo M with PMH CAD s/p stent (05/2024), HFpEF (TTE 06/11/24 wt EF 60-65%, Mod concentric LVH, Aortic sclerosis without stenosis), HTN/HLD, Chronic Hypoxic Resp Failure on 3LNC, Rheumatic Heart Disease,
Metastatic Prostate Ca)
Past Surgical History: Reports Other (Coronary Stentx2, Prostatectomy (2003), B/L Inguinal Hernia Repair, B/L THR)
Social History
Tobacco: Non-smoker
Alcohol: None
Drug: None
Personal:
Living: With Family
Family History
Family History: Other (Mother with pancreatic Ca. Brother wtih Prostate Ca. Sister with Breast Ca. )
Allergies / Home Medications
Allergies reflects when Allergies were last updated in [facility].
Home Medications with original date entered in [facility]
Allergy/Medication List:
Allergies
Allergy/AdvReac Type Severity Reaction Status Date / Time
tetanus toxoid, adsorbed Allergy Hives Verified 11/14/24 16:19
Home Medications
atorvastatin 80 mg tablet 80 mg PO QPM #30 tabs 06/19/24
metoprolol succinate 25 mg tablet,extended release 24 hr 25 mg PO BID #60 tabs 06/19/24
acetaminophen 500 mg tablet (Tylenol Extra Strength) 1,000 mg PO BID mild Pain 07/29/24
therapeutic multivitamin 1 tab PO DAILY Supplement 07/29/24
prochlorperazine maleate 10 mg tablet 10 mg PO Q6HPRN PRN nausea 08/18/24
sertraline 50 mg tablet 50 mg PO QPM depression/anxiety ##0 08/18/24
amlodipine 2.5 mg tablet 2.5 mg PO DAILY #0 tabs 08/22/24
pantoprazole 40 mg tablet,delayed release 40 mg PO BID 30 days #60 tabs 08/22/24
calcium 500 mg (as carbonate)-vitamin D3 10 mcg (400 unit) tablet (Calcium 500 + D) 2 tab PO BID Supplement 11/14/24
hydromorphone 2 mg tablet 2 mg PO Q4HPRN PRN Breakthrough pain 11/14/24
morphine 30 mg immediate release tablet 30 mg PO BID Pain 11/14/24
apixaban 5 mg tablet (Eliquis) 5 mg PO BID #60 tabs 11/25/24
furosemide 80 mg tablet 80 mg PO BID@0800,1600 #60 tabs 11/25/24
colestipol 1 gram tablet 1 g PO BID 01/29/25
insulin glargine 100 unit/mL (3 mL) subcutaneous pen (Lantus Solostar U-100 Insulin) 10 unit SC DAILY@1200 01/29/25
loperamide 2 mg tablet 4 mg PO BID 01/29/25
prednisone 10 mg tablet 5 mg PO BID 01/29/25
Review of Systems
-
Respiratory: Reports Trouble Breathing; Denies Cough
Cardiac: Denies Chest Pain
Abdomen/GI: Denies Abdominal Pain
Physical Exam
Vital Signs
Vital Signs
Temp Pulse Resp BP Pulse Ox
36.5 C 128 29 129/70 98
01/29/25 09:40 01/29/25 11:22 01/29/25 09:40 01/29/25 10:10 01/29/25 11:22
Physical Exam
General: Well Developed, Well Nourished, Comfortable, Conversant, Respiratory Distress (chronic) and Obese
HEENT: NormoCephalic, Moist mucous membranes, Atraumatic and Oxygen (4L NC)
Respiratory: Clear and Non Labored Respirations; No Wheezes, Crackles or Accessory Resp Muscle Use
Cardiac: S1/S2, Irregular Rhythm and Tachycardia; No Murmur
GI: Soft, Non Tender, Normal Bowel Sounds and Distended
Musculoskeletal: Other (Trace B/L LE edema)
Neuro: Awake, Alert, Oriented and AO x 3
Psych: Calm and Intact Judgment/Insight
Laboratory Results
-
01/29/25 10:00
01/29/25 10:00
Laboratory Results
APTT 35.5 Sec (23.4-35.0) H 01/29/25 10:00
Total Bilirubin 0.6 mg/dl (0.2-1.3) 01/29/25 10:00
AST 78 U/L (17-59) H 01/29/25 10:00
ALT 31 U/L (0-50) 01/29/25 10:00
Alkaline Phosphatase 647 U/L (38-126) H 01/29/25 10:00
Data Reviewed
-
Diagnostic Radiology: Image Personally Visualized and interpreted and Report Reviewed by me
Lab Data: Labs Reviewed by me
Impression/Plan
-
HPI: 84-year-old male with past medical history of atrial fibrillation on Eliquis (has not missed any dose), heart failure, metastatic prostate cancer (to bone), inflammatory pneumonitis, chronic hypoxia on 3L at home;
p/w shortness of breath and orthopnea.
He denies fever/chills, lower extremity swelling etc.
He is compliant with his medication including Lasix.
In the ED, he was noted to be in A fib RVR and was started with Cardizem drip.
He was given additional IV lasix 40 mg for acute CHF.
A/P:
# Paroxysmal A fib with RVR POA
Started Cardizem drip in ED, cont
Cont BILL PEDDLER Eliquis
Card CS
# Acute on chronic HFpEF
# Mild transaminitis could be 2/2 hepatic congestion
BNP 5600 on admission
Admission CXR showed Low lung volumes with crowding of the central/vascular markings. Cannot exclude mild increased pulmonary vascularity.
Cont IV Lasix 80 mg BID
Daily weight
Cont BILL PEDDLER BB
# Abd distension likely 2/2 acute CHF
Check Abd US and consider paracentesis if ascites noted
# Leucocytosis likely reactive and due to chronic steroid
# Recent Enterobacter bacteremia in November 2024
Check blood Cx, Procal, COVID as rule out
Monitor CBC
# Acute on chronic anemia
# History of GI bleed in July 2024
Per ED, hemetest negative
Check iron panel, B12, folate
Monitor Hgb
# Chronic hypoxic respiratory failure on 3L home O2
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
followed by Dr. Rowley as an outpatient.
Cont BILL PEDDLER prednisone
# Chronic urinary retention
patient does self-catheterization at home.
Ballard catheterization Q6H during hospital stay
# CAD with history of stents in May 2024
Continue statin, beta-yaneli.
# History of rheumatic heart disease
# Essential hypertension
continue BILL PEDDLER BB with holding parameter
# Hyperlipidemia
continue atorvastatin.
# Metastatic prostate carcinoma s/p Radical prostatectomy 2002
# History of radiation treatment
Off chemo
Follows up with Dr. Mendez and Dr. Patterson
# Chronic pain syndrome / chronic opioid dependence
continue BILL PEDDLER Dilaudid, MS Contin, prednisone.
# Depression
continue sertraline
# Obesity due to excess calories
DVT prophylaxis-Eliquis
Full code
--- NOTE | 2025-01-29 12:55 | CON.CAR ---
Addendum entered and electronically signed by Yosef Carter MD 01/29/25 15:52:
I saw and examined the patient.
The GUM SCORING MACHINE OPERATOR or PA's note was reviewed and I agree with the note.
Comment: General: Well developed, well nourished in NAD.
Neck: Supple, no JVD, HJR, carotids +2 B/L, no bruits bilaterally.
Heart: Non displaced PMI, RRR, no murmurs, No S3, S4, no rubs.
Lungs: Scattered rhonchi
Extremities: No clubbing, cyanosis or edema bilaterally.
Neuro: Grossly nonfocal, awake, alert and oriented x3.
Brandyn has a history of chronic diastolic CHF, A-fib on chronic Eliquis, CAD status post stent to distal to apical LAD in May 2024, metastatic prostate cancer, hyperlipidemia, diabetes. He presents with shortness of breath. Cardiology is
consulted for rapid A-fib and acute diastolic CHF. Will treat with IV Lasix and attempt to control rate with Cardizem. Check echocardiogram. Unlikely that amiodarone would be an ideal choice to keep in sinus rhythm as does have interstitial lung
disease. Could consider cardioversion to get back in sinus rhythm but would have high risk of recurrent A-fib. Also he appears to be asymptomatic regarding A-fib.
Original Note:
Consultation
Consultation Request
Date/Time Consultation Requested: 01/29/2025
Date/Time Consultation Performed: 01/29/2025
Requesting Provider: Dr. Chaves
Performing Provider: Dr. Carter
Reason for Consultation: Acute HF, A-fib with RVR
Medical History
-
History of Present Illness:
Patient came to the ER today with SOB since yesterday and is being admitted with acute HF and rapid A-fib. Patient was admitted to [facility] from 11/14/2024 until 11/25/2024 with newly diagnosed A-fib with RVR and acute HF. Patient spontaneously
converted to NSR during that admission and was started on Eliquis 5 mg BID plus Toprol-XL 25 mg daily. Patient was seen in the office on 11/30/2024 and remained in SR. Patient was told to continue with his usual dose of Lasix 80 mg PO BID. patient
has chronic hypoxic respiratory failure and uses 3 L NC continuously. Patient says he started to feel more SOB starting yesterday and felt bloated, but denies any edema. He describes orthopnea overnight last night. In the ER now his oxygen was
increased to 4 L NC and he thinks this makes him feel better. No chest pain or palpitations. Patient was unaware that he was back in A-fib.
PMH:
Recent admission for sepsis, new A-fib, acute HF and acute inflammatory pneumonitis 11/14/2024 until 11/25/2024
Chronic HFpEF
A-fib with RVR
Paroxysmal atrial fibrillation
Newly diagnosed 11/14/2024 and spontaneously converted to SR
First documented recurrence of A-fib 01/29/2025
Chronic Eliquis OAC
CAD
s/p 2.25 mm and 2.5 mm [employer] [place] THOMAS to distal to apical LAD 06/12/24
Metastatic prostate cancer
Hyperlipidemia, LDL 195
Hyperglycemia, HgbA1c 6.5%
Past Medical History
Past Medical History: Other (in HPI)
Past Surgical History: Cardiac (LAD PCI 06/12/24), Orthopedic and Urological (prostatectomy)
Social History
Tobacco: Non-Smoker
Alcohol: None
Drug: None
Personal: Partner
Living: With Family
Family History
Family History: Cancer
Allergies / Home Medications
Allergy/AdvReac Type Severity Reaction Status Date / Time
tetanus toxoid, adsorbed Allergy Hives Verified 11/14/24 16:19
�Medication �Instructions �Recorded �Confirmed �Type
atorvastatin 80 mg tablet 80 mg PO QPM #30 tabs 06/19/24 01/29/25 Rx
metoprolol succinate 25 mg 25 mg PO BID #60 tabs 06/19/24 01/29/25 Rx
tablet,extended release 24 hr
acetaminophen 500 mg tablet 1,000 mg PO BID mild Pain 07/29/24 01/29/25 History
(Tylenol Extra Strength)
therapeutic multivitamin 1 tab PO DAILY Supplement 07/29/24 01/29/25 History
prochlorperazine maleate 10 mg 10 mg PO Q6HPRN PRN nausea 08/18/24 01/29/25 History
tablet
sertraline 50 mg tablet 50 mg PO QPM depression/anxiety ##0 08/18/24 01/29/25 History
amlodipine 2.5 mg tablet 2.5 mg PO DAILY #0 tabs 08/22/24 01/29/25 Rx
pantoprazole 40 mg tablet,delayed 40 mg PO BID 30 days #60 tabs 08/22/24 01/29/25 Rx
release
calcium 500 mg (as 2 tab PO BID Supplement 11/14/24 01/29/25 History
carbonate)-vitamin D3 10 mcg (400
unit) tablet (Calcium 500 + D)
hydromorphone 2 mg tablet 2 mg PO Q4HPRN PRN Breakthrough 11/14/24 01/29/25 History
pain
morphine 30 mg immediate release 30 mg PO BID Pain 11/14/24 01/29/25 History
tablet
apixaban 5 mg tablet (Eliquis) 5 mg PO BID #60 tabs 11/25/24 01/29/25 Rx
furosemide 80 mg tablet 80 mg PO BID@0800,1600 #60 tabs 11/25/24 01/29/25 Rx
colestipol 1 gram tablet 1 g PO BID 01/29/25 01/29/25 History
insulin glargine 100 unit/mL (3 10 unit SC DAILY@1200 01/29/25 01/29/25 History
mL) subcutaneous pen (Lantus
Solostar U-100 Insulin)
loperamide 2 mg tablet 4 mg PO BID 01/29/25 01/29/25 History
prednisone 10 mg tablet 5 mg PO BID 01/29/25 01/29/25 History
Review of Systems
-
History Source: Patient
All other systems: Negative unless noted
Physical Exam
Vital Signs
Temp Pulse Resp BP Pulse Ox
97.7 F 128 29 129/70 98
01/29/25 09:40 01/29/25 11:22 01/29/25 09:40 01/29/25 10:10 01/29/25 11:22
GEN: NAD. AAO x3
HEENT: EOMI, MMM
LUNGS: 4 L NC. Bibasilar rales without wheeze.
CV: Afib with RVR on tele. Irreg irreg, S1/S2, no murmur
ABD: Distended. Soft, BS+, NT
EXT: No cyanosis, clubbing, edema B/L
NEURO: Gross non-focal
SKIN: Warm, pink, dry. No rash
Lab Results
01/29/25 10:00
01/29/25 10:00
Quh-K-Ubkyojkkvua Pept 5630 pg/ml 01/29/25 10:00
Impression / Plan
-
PCP: Dr. Cervantes
Cardiology: Dr. Carter
Impression:
Admitted with acute HFpEF and rapid Afib 01/29/25
Recent admission for sepsis, new A-fib, acute HF and acute inflammatory pneumonitis 11/14/2024 until 11/25/2024
Acute HFpEF
A-fib with RVR
Paroxysmal atrial fibrillation
Newly diagnosed 11/14/2024 and spontaneously converted to SR
First documented recurrence of A-fib 01/29/2025
Chronic Eliquis OAC
CAD
s/p 2.25 mm and 2.5 mm [employer] [place] THOMAS to distal to apical LAD 06/12/24
Metastatic prostate cancer
Hyperlipidemia, LDL 195
Hyperglycemia, HgbA1c 6.5%
Lexiscan nuclear stress test 05/21/2024: Myocardial perfusion imaging without definite evidence of scan ischemia or scar, inferior soft tissue attenuation artifact present, EF 39%
Echo 04/01/23: Normal BiV size and function without wall motion abnormality, mild concentric LVH, no significant valve disease
Echo 06/11/24: EF 60 to 65%, no WMA, no MR, no /AR
Echo 11/15/2024: EF 55 to 60%, no regional wall motion abnormalities noted, moderate concentric LVH, no significant valvular disease
Plan:
-Patient came to the ER today with SOB since yesterday and is being admitted with acute HF and rapid A-fib. Patient was admitted to [facility] from 11/14/2024 until 11/25/2024 with newly diagnosed A-fib with RVR and acute HF. Patient spontaneously
converted to NSR during that admission and was started on Eliquis 5 mg BID plus Toprol-XL 25 mg daily. Patient was seen in the office on 11/30/2024 and remained in SR. Patient was told to continue with his usual dose of Lasix 80 mg PO BID. patient
has chronic hypoxic respiratory failure and uses 3 L NC continuously. Patient says he started to feel more SOB starting yesterday and felt bloated, but denies any edema. He describes orthopnea overnight last night. In the ER now his oxygen was
increased to 4 L NC and he thinks this makes him feel better. No chest pain or palpitations. Patient was unaware that he was back in A-fib.
-ECG reviewed by me looks like A-fib with RVR.
-Patient with recurrent A-fib and RVR. Initial A-fib diagnosis made at time of last admission 11/14/2024 and patient spontaneously converted to SR at that time. This is his first documented recurrence of atrial arrhythmia. Patient appears to be in
symptomatic rapid A-fib likely precipitating acute HF. Talked with patient about rate control versus rhythm control options and he would be interested in rhythm control options to help reduce the risk of recurrent acute HF admissions. Patient has
chronic interstitial lung disease and is chronically on home oxygen, so not sure that amiodarone would be appropriate in that situation. Another option would be Tikosyn.
-QTc 492 ms in the setting of rapid A-fib with RBBB on ECG 01/29/2025.
-Patient denies missing any doses of his usual Eliquis 5 mg BID (age 84, Cre 0.5, wt 107 kg)
-proBNP is 5630 which is the highest level on record for patient, his proBNP was 4740 during his acute HF admission 11/22/2024
-Patient was given Lasix 40 mg IV x 1 in the ER. Patient was taking Lasix 80 mg PO BID prior to admission. Recommend Lasix 80 mg IV BID to start and then increase pending diuretic effect.
-Check limited study echo to follow-up on EF that was normal by last echo 11/15/2024
-Acute HF likely related to rapid A-fib. Not clear that there is a role for SGLT2 inhibitor or aldosterone antagonist therapy in this situation.
-No complaints of chest pain. Patient had THOMAS to apical LAD 06/12/2024 and is not chronically on antiplatelet therapy in favor of Eliquis alone given increased bleeding risk. Patient does not take an aspirin a day.
[2025-01-29 13:48] LABS: COVID-19 Antigen Negative (Negative)
[2025-01-29 14:05] LABS: Procalcitonin 0.07 ng/ml (0.0-0.25)
--- NOTE | 2025-01-29 18:33 | PTCARENOTE ---
Received pt from the ED. Pt tolerating Cardizem at 15 mg/hr. VSS. Pt extremely weak and sob. Pt remains in atrial fib. Ten monitor.
[2025-01-29 18:52] LABS: Glucose - Point of Care 182 mg/dl (70-99)
[2025-01-29] MEDS: LANTUS 0.1 UNITS SC (20:06)
[2025-01-29] MEDS: LASIX 80 MG IV (20:07)
[2025-01-29] MEDS: TOPROL XL 25 MG PO (20:08)
[2025-01-29] MEDS: MORPHINE SULFATE 30 MG PO (20:08)
[2025-01-29] MEDS: TYLENOL 1000 MG PO (20:08)
[2025-01-29] MEDS: PROTONIX 40 MG PO (20:08)
[2025-01-29] MEDS: OSCAL 500 + D 1000 MG PO (20:08)
[2025-01-29] MEDS: LIPITOR 80 MG PO (20:08)
[2025-01-29] MEDS: IMODIUM 4 MG PO (20:08)
[2025-01-29] MEDS: ZOLOFT 50 MG PO (20:09)
[2025-01-29] MEDS: DELTASONE 5 MG PO (20:09)
[2025-01-29] MEDS: ELIQUIS 5 MG PO (20:09)
[2025-01-29 23:02] LABS: Glucose - Point of Care 203 mg/dl (70-99)
--- NOTE | 2025-01-29 23:47 | PTCARENOTE ---
Assumed care of the pt @ 1900. Pt is AAOx3 A Fib on the monitor Cardizem gtt @ 15 mg/ HR. Denies CP. Pt straight cath himself for last few years. Pt was cath for 600 ml urine @2200. POC discussed with pt. Call guzman within reach.
[2025-01-30] VITALS (11 sets, daily range): BP systolic 109–146; BP diastolic 61–85; BMI 29.9
[2025-01-30 04:10] LABS: Hematocrit 28.5 % (39.0-52.0); Hemoglobin 8.7 g/dL (13.0-18.0); Mean Corp Hgb Conc. 30.5 g/dL (33.0-37.0); Mean Corpuscular Volume 77.4 fL (80.0-94.0); Nucleated Red Blood Cells % 0.4 % (-); Platelet Count 375 10^3/uL (130-400); Red Cell Dist. Width 22.0 % (11.5-14.5)
[2025-01-30 04:33] LABS: ALT (SGPT) 30 U/L (0-50); AST (SGOT) 77 U/L (17-59); Albumin 3.2 g/dl (3.5-5.0); Alkaline Phosphatase 809 U/L (38-126); Blood Urea Nitrogen 28 mg/dl (9-20); Calcium 8.9 mg/dl (8.4-10.2); Carbon Dioxide 28 mmol/L (22-30); Chloride 100 mmol/L (98-107); Estimated Creatinine Clearance 108 ml/min; Glucose 181 mg/dl (70-99); Magnesium 1.9 mg/dl (1.6-2.3); Potassium 4.5 mmol/L (3.5-5.1); Sodium 138 mmol/L (135-145); Total Protein 5.9 g/dl (6.3-8.2); eGFR > 60.00
[2025-01-30] MEDS: CARDIZEM 125 IV (06:31)
[2025-01-30 07:21] LABS: Glucose - Point of Care 190 mg/dl (70-99)
--- NOTE | 2025-01-30 08:22 | W.PN.HOSP.TC ---
Today's Communication/Plan
-
see A/P
despite being on IV lasix, symptom not better, Pulm CS for pulm involvement
Assessment / Plan
Assessment / Plan
HPI: 84-year-old male with past medical history of atrial fibrillation on Eliquis (has not missed any dose), heart failure, metastatic prostate cancer (to bone), inflammatory pneumonitis, chronic hypoxia on 3L at home;
p/w shortness of breath and orthopnea.
He denies fever/chills, lower extremity swelling etc.
He is compliant with his medication including Lasix.
In the ED, he was noted to be in A fib RVR and was started with Cardizem drip.
He was given additional IV lasix 40 mg for acute CHF.
A/P:
# Paroxysmal A fib with RVR POA
Started Cardizem drip in ED, cont
Cont VALIDATION SPECIALIST Eliquis
Card consulted
# SOB likely Acute on chronic HFpEF
# Mild transaminitis could be 2/2 hepatic congestion
BNP 5600 on admission
Admission CXR showed Low lung volumes with crowding of the central/vascular markings. Cannot exclude mild increased pulmonary vascularity.
Cont IV Lasix 80 mg BID , Daily weight
Cont VALIDATION SPECIALIST BB
despite being on IV lasix, symptom not better, Pulm CS for pulm involvement
# Abd distension without ascites
# Leucocytosis likely reactive and due to chronic steroid
# Recent Enterobacter bacteremia in November 2024
Follow blood Cx, Procal negative, COVID negative
Monitor CBC
# Acute on chronic anemia
# History of GI bleed in July 2024
Per ED, hemetest negative
Hgb on admission at 8
Check iron panel, B12, folate
Monitor Hgb
# Chronic hypoxic respiratory failure on 3L home O2
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
followed by Dr. Rowley as an outpatient.
Cont VALIDATION SPECIALIST prednisone
despite being on IV lasix, symptom not better, Pulm CS for pulm involvement
# Chronic urinary retention
patient does self-catheterization at home.
Ballard catheterization Q6H during hospital stay
# CAD with history of stents in May 2024
Continue statin, beta-yaneli.
# History of rheumatic heart disease
# Essential hypertension
continue VALIDATION SPECIALIST BB with holding parameter
# Hyperlipidemia
continue atorvastatin.
# Metastatic prostate carcinoma s/p Radical prostatectomy 2002
# History of radiation treatment
Off chemo
Follows up with Dr. Mendez and Dr. Patterson
# Chronic pain syndrome / chronic opioid dependence
continue VALIDATION SPECIALIST Dilaudid, MS Contin, prednisone.
# Depression
continue sertraline
# Obesity due to excess calories
DVT prophylaxis-Eliquis
Full code
total time 51 min
Anticipated Discharge: > 48 hours
Subjective/Interval History
-
Date of Service: January 30, 2025
Objective Data
-
Labs:
Laboratory Results
01/30/25
03:11
WBC 12.3 H
Hgb 8.7 L
Hct 28.5 L
Plt Count 375
Sodium 138
Potassium 4.5
Chloride 100
Carbon Dioxide 28
BUN 28 H
Creatinine 0.6 L
Glucose 181 H
Calcium 8.9
Total Bilirubin 0.6
AST 77 H
ALT 30
Alkaline Phosphatase 809 H
Vital Signs:
Vital Signs
Temp Pulse Resp BP Pulse Ox
36.7 C 106 20 125/70 100
01/30/25 07:17 01/30/25 07:45 01/30/25 07:17 01/30/25 07:17 01/30/25 07:17
I&O
01/29/25 01/30/25 01/31/25
06:59 06:59 06:59
Output Total 1599 / 1599
Balance -1600 / -1600
Review of Systems
-
History Source: Patient
Respiratory: Reports Trouble Breathing
Physical Exam
-
General: Well Developed, Well Nourished, Comfortable, Respiratory Distress (chronic), Conversant and Obese
HEENT: Oxygen (4L NC)
Respiratory: Clear to Auscultation and Non Labored Respirations; Negative Wheezes or Accessory Resp Muscle Use
Cardiac: Regular Rhythm and S1/S2
GI: Soft and Nontender
Musculoskeletal: No Edema
Skin: Warm and Dry; Negative Rash
Neuro: Awake and Alert
Psych: Calm and Intact Judgement/Insight
Data Reviewed
-
Diagnostic Radiology: Report Reviewed by me
Labs: Labs Reviewed by me
--- NOTE | 2025-01-30 08:46 | CON.PUL ---
Consultation
Consultation Request
Date/Time Consultation Requested: 01/30/2025-8 AM
Date/Time Consultation Performed: 01/30/2025-8:30 AM
Requesting Provider: Hospitalist
Performing Provider: Dr. Mims
Reason for Consultation: Chronic cough/shortness of breath
Medical History
-
Chief Complaint: Shortness of breath and cough
History of Present Illness:
84-year-old non-smoking male with history of atrial fibrillation, CAD, heart failure, metastatic prostate cancer to the bone with chronic cough, chronic mucus production and chronic hypoxemia on 3 L of oxygen with severe gas exchange deficit,
suspected sleep disordered breathing admitted with acute on top of chronic heart failure and pulmonary consulted for ongoing mucus production and shortness of breath 01/30/2025. The patient states that he has had a chronic cough with occasional
yellow mucus production for nearly 2 years. He has chronic shortness of breath and is on oxygen. He sees Dr. Rowley in the office. He was recently discharged from the hospital 11/25/2024 at which time pulmonary did see the patient.
Past Medical History
Past Medical History: None (CAD/stent. Heart failure preserved EF-60-65%. Chronic hypoxemia on 3 L oxygen at home with severe gas exchange deficit. Hypertension. Hyperlipidemia. Obesity. Metastatic prostate cancer to the bone/prostatectomy
2003. Inguinal hernia repair.)
Social History
Tobacco: Former Smoker ([id number] quit many years ago)
Alcohol: None
Personal:
Living: With Family
Occupational Exposures: No known asbestos exposure
Environmental Exposures: No known tuberculosis exposure
Family History
Family History: Reviewed & Not Pertinent (Prostate cancer. Father sudden . Mother pancreatic cancer. Siblings with prostate and breast cancer)
Allergies / Home Medications
Allergies
Allergy/AdvReac Type Severity Reaction Status Date / Time
tetanus toxoid, adsorbed Allergy Hives Verified 11/14/24 16:19
Home Medications
�Medication �Instructions �Recorded �Confirmed �Last Taken �Type
atorvastatin 80 mg tablet 80 mg PO QPM #30 tabs 06/19/24 01/29/25 01/28/25 Rx
metoprolol succinate 25 mg 25 mg PO BID #60 tabs 06/19/24 01/29/25 01/29/25 Rx
tablet,extended release 24 hr
acetaminophen 500 mg tablet 1,000 mg PO BID mild Pain 07/29/24 01/29/25 01/29/25 History
(Tylenol Extra Strength)
therapeutic multivitamin 1 tab PO DAILY Supplement 07/29/24 01/29/25 01/29/25 History
prochlorperazine maleate 10 mg 10 mg PO Q6HPRN PRN nausea 08/18/24 01/29/25 Unknown History
tablet
sertraline 50 mg tablet 50 mg PO QPM depression/anxiety ##0 08/18/24 01/29/25 01/28/25 History
amlodipine 2.5 mg tablet 2.5 mg PO DAILY #0 tabs 08/22/24 01/29/25 01/29/25 Rx
pantoprazole 40 mg tablet,delayed 40 mg PO BID 30 days #60 tabs 08/22/24 01/29/25 01/29/25 Rx
release
calcium 500 mg (as 2 tab PO BID Supplement 11/14/24 01/29/25 01/29/25 History
carbonate)-vitamin D3 10 mcg (400
unit) tablet (Calcium 500 + D)
hydromorphone 2 mg tablet 2 mg PO Q4HPRN PRN Breakthrough 11/14/24 01/29/25 Unknown History
pain
morphine 30 mg immediate release 30 mg PO BID Pain 11/14/24 01/29/25 01/29/25 History
tablet
apixaban 5 mg tablet (Eliquis) 5 mg PO BID #60 tabs 11/25/24 01/29/25 01/29/25 Rx
furosemide 80 mg tablet 80 mg PO BID@0800,1600 #60 tabs 11/25/24 01/29/25 01/29/25 Rx
colestipol 1 gram tablet 1 g PO BID 01/29/25 01/29/2501/29/25 History
insulin glargine 100 unit/mL (3 10 unit SC DAILY@1200 01/29/25 01/29/25 01/28/25 History
mL) subcutaneous pen (Lantus
Solostar U-100 Insulin)
loperamide 2 mg tablet 4 mg PO BID 01/29/25 01/29/25 01/29/25 History
prednisone 10 mg tablet 5 mg PO BID 01/29/25 01/29/25 01/29/25 History
Review of Systems
-
Unable to Obtain full review of systems at this time due to: Other (Per HPI)
Vitals / Labs / Diagnostic Testing
Vital Signs
Temp Pulse Resp BP Pulse Ox
98.1 F 106 20 125/70 100
01/30/25 07:17 01/30/25 07:45 01/30/25 07:17 01/30/25 07:17 01/30/25 07:17
Lab Data
01/30/25 03:11
01/30/25 03:11
Laboratory Results
01/29/25
10:00
APTT 35.5 H
Diagnostic Testing:
Physical Exam
-
Exam:
Well-nourished and well-developed in no apparent distress
HEENT-atraumatic, normocephalic, thick neck
Neck-supple, no JVD, no bruit
Heart-regular rate and rhythm-no murmurs, rubs or gallops
Chest with rare crackles at the bases, mildly prolonged expiratory time, no chest pain or abdominal pain
Back-no tenderness
Abdomen-soft, nontender, nondistended, no hepatosplenomegaly
Extremities-no cyanosis, clubbing, edema and good peripheral pulses
Integument-intact, no rashes, lesions or ecchymosis
Neurology-alert and oriented, nonfocal motor and sensory exam
Assessment
-
84-year-old non-smoking male with history of atrial fibrillation, CAD, heart failure, metastatic prostate cancer to the bone with chronic cough, chronic mucus production and chronic hypoxemia on 3 L of oxygen with severe gas exchange deficit,
suspected sleep disordered breathing admitted with acute on top of chronic heart failure and pulmonary consulted for ongoing mucus production and shortness of breath 01/30/2025.
Heart failure preserved EF
Rapid atrial fibrillation
Recent admission for sepsis/A-fib/heart failure and pneumonitis
Leukocytosis
Microcytic anemia-hemoglobin 8.7
Hyperglycemia
Chronic bronchitis
Conditions present prior to admission:
Recent hospitalization 11/14 through 11/25/2024 with sepsis due to Enterobacter, inflammatory pneumonitis, new onset rapid atrial fibrillation and heart failure preserved EF
CAD/stent.
Heart failure preserved EF-60-65%.
Chronic hypoxemia on 3 L oxygen at home with severe gas exchange deficit.
Interstitial lung disease
Hypertension.
Hyperlipidemia.
Obesity.
Metastatic prostate cancer to the bone/prostatectomy 2003.
Inguinal hernia repair.
Plan
Extensive cardiopulmonary history reviewed and office records reviewed in addition to multiple chest x-rays, CT chest, PET scan, lower extremity ultrasound, nuclear stress test, echocardiograms, and pulmonary functions all summarized below
The patient complains of chronic mucus production for nearly 2 years-whitish/yellow-chronically on oxygen therapy
Current decompensation likely heart failure preserved EF and rapid atrial fibrillation
Supplemental oxygen as needed
Assess discharge supplemental oxygen needs
Aspiration precautions
Nebulizers if needed-currently not bronchospastic
Prednisone 5 mg twice daily
Diuresis as tolerated
Monitor renal function, electrolytes, intake/output, lower extremity edema and weight
Replace electrolytes as needed
Cardiology following-correspondence reviewed
Tikosyn initiated
Follow QTc
Cardizem drip will be weaned
Follow-up echocardiogram pending
Check sputum culture
Follow leukocytosis and temperature curve
Consider empiric antibiotics depending on culture results
DVT prophylaxis-on Eliquis
GI prophylaxis-on pantoprazole
Nutrition
Early mobilization
Patient is also now followed at [facility] for second opinion regarding prostate cancer chemotherapy
Last saw Dr. Rowley 01/01/2025 and has an appointment 11:15 AM on [id number] CT chest [place] was recommended
Diagnostic data:
Chest x-ray 08/10/2024-NAD, stable sclerotic osseous metastases
Chest x-ray 11/20/2024-bibasilar subsegmental atelectasis
Chest x-ray 01/29/2025-mild increased pulmonary vascular congestion, no focal parenchymal consolidation
CT chest 09/19/2024-no evidence for central pulmonary embolism, bibasilar subsegmental atelectasis, widespread sclerotic bony metastases
CT chest 11/24/2024-a new 4.1 cm groundglass opacification anterior segment right upper lobe, mild peripheral inflammatory interstitial pneumonitis, extensive diffuse blastic osseous metastases
PET scan 11/12/2024-marked widespread innumerable osseous metastases of PSMA uptake
Lower extremity ultrasound 11/23/2024-no evidence for lower extremity DVT
Lexiscan nuclear stress test 05/21/2024: Myocardial perfusion imaging without definite evidence of scan ischemia or scar, inferior soft tissue attenuation artifact present, EF 39%
Echo 04/01/23: Normal BiV size and function without wall motion abnormality, mild concentric LVH, no significant valve disease
Echo 06/11/24: EF 60 to 65%, no WMA, no MR, no /AR
Echo 11/15/2024: EF 55 to 60%, no regional wall motion abnormalities noted, moderate concentric LVH, no significant valvular disease
Echo 01/30/2025-pending
Helen 09/05/24: FVC 2.64/59%, FEV1 1.91/60%, ratio 73%, no significant BD response.� Suggestive of moderate restriction.
Pulmonary function testing: (07/25/2023)FEV1 /FVC:73%FEV1:2.42 L-80%FVC:3.33 L-79%Total lung capacity:5.27 L-70%Residual volume:1.84 L, RV 62%Expiratory reserve volume:DLCO:10.52-40%DLCO/VA:59%
Data Reviewed
-
PFT: Report reviewed by me
EKG: Report reviewed by me
Radiology: Report reviewed by me
CT Scan: Report reviewed by me
Medical Tests (Nuc Med, Echo etc): Report reviewed by me
Labs: Labs reviewed by me
Old Records: Reviewed
Total Time Spent with Patient (in minutes): 70
[2025-01-30 08:49] LABS: Iron 46 ug/dl (49-181)
[2025-01-30 08:58] LABS: Total Iron Binding Capacity 245 ug/dl (261-462)
--- NOTE | 2025-01-30 09:09 | W.PN.CARDCBS ---
Addendum entered and electronically signed by Christiano Torres DO 01/30/25 16:07:
I saw and examined the patient.
The Cytology Teacher's note was reviewed and I agree with the note.
Comment:
Plan:
Continues with multifactorial dyspnea
Continue Lasix IV diuresis.
With recurrent atrial fibrillation and symptoms, discussed Tikosyn loading and he was agreeable to this.
Monitor QTc with dosing.
Continue telemetry
Continue anticoagulation
Check limited follow-up echocardiogram to reevaluate left ventricular systolic function.
Reviewed with primary strategic consultant.
Original Note:
Today's Communication / Plan
-
Start Tikosyn 500 mcg q 12 hours this morning
Follow QTc on ECG
Wean Cardizem gtt
Cont Lasix 80 mg IV BID, but if no appreciable diuresis by tomorrow then would increase to 100 mg IV BID
Impression / Plan
-
PCP: Dr. Cervantes
Cardiology: Dr. Carter
Impression:
Admitted with acute HFpEF and rapid Afib 01/29/25
Recent admission for sepsis, new A-fib, acute HF and acute inflammatory pneumonitis 11/14/2024 until 11/25/2024
Acute HFpEF
A-fib with RVR
Paroxysmal atrial fibrillation
Newly diagnosed 11/14/2024 and spontaneously converted to SR
First documented recurrence of A-fib 01/29/2025
Chronic Eliquis OAC
CAD
s/p 2.25 mm and 2.5 mm Medtronic Berger THOMAS to distal to apical LAD 06/12/24
Metastatic prostate cancer
Hyperlipidemia, LDL 195
Hyperglycemia, HgbA1c 6.5%
Lexiscan nuclear stress test 05/21/2024: Myocardial perfusion imaging without definite evidence of scan ischemia or scar, inferior soft tissue attenuation artifact present, EF 39%
Echo 04/01/23: Normal BiV size and function without wall motion abnormality, mild concentric LVH, no significant valve disease
Echo 06/11/24: EF 60 to 65%, no WMA, no MR, no /AR
Echo 11/15/2024: EF 55 to 60%, no regional wall motion abnormalities noted, moderate concentric LVH, no significant valvular disease
Echo 01/30/2025
Plan:
-Patient admitted with A-fib RVR and acute HF on 01/29/2025. Patient has underlying ILD and is chronically on oxygen at 3 L NC.
-Tele reviewed by me and patient remains in Afib with RVR.
-Cardizem gtt running at 10 mg/hr. Weaning parameters added by me 01/30/25
-Outpatient dose of Toprol-XL 25 mg BID has been continued
-Patient is agreeable to the addition of Tikosyn and attempt at rhythm control. No previous AAD therapy.
-Start Tikosyn 500 mcg q 12 hours. CrCl is 139 calculated by me on 01/30/25 using age 84, wt 232 lbs and Cre 0.6.
-Patient denies missing any doses of his usual Eliquis 5 mg BID (age 84, Cre 0.5, wt 107 kg)
-Weight is up 2 lbs despite Lasix IV diuresis. Cont Lasix 80 mg IV BID. Patient was taking Lasix 80 mg PO BID prior to admission. Consider increased dose of Lasix IV if no appreciable diuresis by 01/31/25.
-Check limited study echo to follow-up on EF that was normal by last echo 11/15/2024, ordered by me
-Acute HF likely related to rapid A-fib. Not clear that there is a role for SGLT2 inhibitor or aldosterone antagonist therapy in this situation.
-No complaints of chest pain. Patient had THOMAS to apical LAD 06/12/2024 and is not chronically on antiplatelet therapy in favor of Eliquis alone given increased bleeding risk. Patient does not take an aspirin a day.
HPI: Patient came to the ER today with SOB since yesterday and is being admitted with acute HF and rapid A-fib. Patient was admitted to [facility] from 11/14/2024 until 11/25/2024 with newly diagnosed A-fib with RVR and acute HF. Patient spontaneously
converted to NSR during that admission and was started on Eliquis 5 mg BID plus Toprol-XL 25 mg daily. Patient was seen in the office on 11/30/2024 and remained in SR. Patient was told to continue with his usual dose of Lasix 80 mg PO BID. patient
has chronic hypoxic respiratory failure and uses 3 L NC continuously. Patient says he started to feel more SOB starting yesterday and felt bloated, but denies any edema. He describes orthopnea overnight last night. In the ER now his oxygen was
increased to 4 L NC and he thinks this makes him feel better. No chest pain or palpitations. Patient was unaware that he was back in A-fib.
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
Subjective
Date of Service: January 30, 2025
He is SOB, still on 4 L NC instead of his usual 3 L
Objective
Labs:
01/30/25 03:11
01/30/25 03:11
Labs
Hgb 8.7 g/dL (13.0-18.0) L 01/30/25 03:11
Hct 28.5 % (39.0-52.0) L 01/30/25 03:11
Plt Count 375 10^3/uL (130-400) 01/30/25 03:11
APTT 35.5 Sec (23.4-35.0) H 01/29/25 10:00
Sodium 138 mmol/L (135-145) 01/30/25 03:11
Potassium 4.5 mmol/L (3.5-5.1) 01/30/25 03:11
BUN 28 mg/dl (9-20) H 01/30/25 03:11
Creatinine 0.6 mg/dL (0.7-1.3) L 01/30/25 03:11
Glucose 181 mg/dl (70-99) H 01/30/25 03:11
Vital Signs and I&O:
Vital Signs
Temp Pulse Resp BP Pulse Ox
98.1 F 106 20 125/70 100
01/30/25 07:17 01/30/25 07:45 01/30/25 07:17 01/30/25 07:17 01/30/25 07:17
Vital Signs
Temp Pulse Resp BP Pulse Ox
98.1 F 106 20 125/70 100
01/30/25 07:17 01/30/25 07:45 01/30/25 07:17 01/30/25 07:17 01/30/25 07:17
Intake & Output
01/28/25 01/29/25 01/30/25 01/31/25
06:59 06:59 06:59 06:59
Output Total 1600 / 1600
Balance -1600 / -1600
Physical Exam
Physical Exam
GEN: NAD. AAO x3
LUNGS: 4 L NC. No wheeze.
CV: Afib on tele.
ABD: Distended.
[2025-01-30] MEDS: IMODIUM 4 MG PO ×2 (09:15→21:09)
[2025-01-30] MEDS: OSCAL 500 + D 1000 MG PO ×2 (09:15→21:08)
[2025-01-30] MEDS: PROTONIX 40 MG PO ×2 (09:15→21:07)
[2025-01-30] MEDS: TYLENOL 1000 MG PO ×2 (09:15→21:08)
[2025-01-30] MEDS: DELTASONE 5 MG PO ×2 (09:15→21:09)
[2025-01-30] MEDS: DESENEX/MITRAZOL/ZEASORB 1 APPLIC TOPICAL ×2 (09:15→21:09)
[2025-01-30] MEDS: MORPHINE SULFATE 30 MG PO ×2 (09:15→21:08)
[2025-01-30] MEDS: ELIQUIS 5 MG PO ×2 (09:16→21:09)
[2025-01-30] MEDS: LASIX 80 MG IV ×2 (09:16→16:59)
[2025-01-30] MEDS: TOPROL XL 25 MG PO ×2 (09:17→21:09)
[2025-01-30] MEDS: NORVASC 2.5 MG PO (09:17)
--- NOTE | 2025-01-30 09:50 | W.CARD.TIKOS ---
Initiate Tikosyn
-
I verify that the patient has not taken any verapamil (Isoptin/Calan), ketoconazole (Nizoral), cimetidine (Tagamet), trimethoprim (Trimpex), trimethoprim/sulfamethoxazole (Bactrim), megesterol (Megace), prochlorperazine (Compazine),
hydrochlorothiazide (HCTZ), dolutegravir (Tivicay) or any Class I or Class III anti-arrhythmic within the last three days
AND
I verify that the patient has not taken amiodarone within the last THREE months, or that the patient's amiodarone plasma concentration is <0.3 mcg/mL.
Creatinine 0.6 mg/dL (0.7-1.3) L 01/30/25 03:11
Estimated Creat Clear 108 ml/min 01/30/25 03:11
CrCl 139
Does patient have a Ventricular Conduction Abnormality: Yes
I have assessed the baseline QTc interval (using QT for heart rate less than 60 bpm) and deemed the patient is appropriate for Dofetilide therapy. I understand that Tikosyn is contraindicated if the QTc is >440msec (500msec in patients with
ventricular conduction abnormalities).
Baseline QTc (in msec): 492
QTc interval is greater than 440msec without conduction abnormality OR greater than 500msec with a conduction abnormality, but acceptable to proceed per Cardiology attending.
Reason for Administration with Prolonged QTc: Bundle Branch Block
[2025-01-30 10:23] LABS: Folate 14.4 ng/ml (2.76-20); Vitamin B12 648 pg/ml (239-931)
[2025-01-30] MEDS: TIKOSYN 500 MCG PO ×2 (10:34→21:08)
[2025-01-30 10:36] LABS: Ferritin 1400.0 ng/ml (17.9-464.0)
--- NOTE | 2025-01-30 11:51 | CARDSERVLU ---
Echocardiogram with Lumason completed after protocol screening completed. Allergies verified.
Patent IV site: Left antecubital site clear
IV site flushed with 0.9% NaCl pre and post administration.
Diluted bolus method utilized to enhance visualization of ventricular oquendo.
Total volume given: _3___ mL
Patient tolerated all procedures well without complications.
[2025-01-30 12:35] LABS: Glucose - Point of Care 209 mg/dl (70-99)
[2025-01-30] MEDS: LANTUS 0.1 UNITS SC (12:35)
--- NOTE | 2025-01-30 12:52 | PTCARENOTE ---
Cardizem gtt infusing at 5 ml/hr. Tele remains afib. HR 90-100s. Tikosyn dose #1 administered and post EKG obtained. QTc 411. Plan of care reviewed w/ pt and verbalizes understanding. Currently in bed; call megan w/in reach.
[2025-01-30] MEDS: NOVOLOG FLEXPEN-LOW RESISTANCE 2 UNITS SC ×2 (13:14→17:01)
--- NOTE | 2025-01-30 14:52 | CM ---
spoke to pt in room, he is prev indep, lives with his s.o. in a 1 story home with a ramp to enter. he has home O2 at 3 Liters, he does not remember the name of the company. plan is for dc to home when medically stable.
[2025-01-30] MEDS: ZOLOFT 50 MG PO (16:59)
[2025-01-30] MEDS: LIPITOR 80 MG PO (16:59)
[2025-01-30 17:02] LABS: Glucose - Point of Care 232 mg/dl (70-99)
[2025-01-30] MEDS: ATIVAN 0.25 MG PO (21:10)
[2025-01-30 21:42] LABS: Glucose - Point of Care 215 mg/dl (70-99)
--- NOTE | 2025-01-30 23:43 | PTCARENOTE ---
Assumed care of the pt @ 1900. Pt is AAOx3 SR with 1st degree AV Block VSS denies CP. + dyspnea at rest sat 97% on 4 LPM NC. BM x 2 so far this shift sm loose brown stool. 2nd dose Tikosyn given EKG 2 hours post QTc 482. Pt requested Ativan PO for
sleep. Call guzman within reach.
[2025-01-31] VITALS (8 sets, daily range): BP systolic 121–150; BP diastolic 57–82; BMI 29.6
[2025-01-31 04:42] LABS: Hematocrit 28.6 % (39.0-52.0); Hemoglobin 8.7 g/dL (13.0-18.0); Mean Corp Hgb Conc. 30.4 g/dL (33.0-37.0); Mean Corpuscular Volume 77.5 fL (80.0-94.0); Nucleated Red Blood Cells % 0.2 % (-); Platelet Count 360 10^3/uL (130-400); Red Cell Dist. Width 21.9 % (11.5-14.5)
[2025-01-31 05:03] LABS: ALT (SGPT) 35 U/L (0-50); AST (SGOT) 73 U/L (17-59); Albumin 3.1 g/dl (3.5-5.0); Alkaline Phosphatase 736 U/L (38-126); Blood Urea Nitrogen 31 mg/dl (9-20); Calcium 8.9 mg/dl (8.4-10.2); Carbon Dioxide 30 mmol/L (22-30); Chloride 98 mmol/L (98-107); Estimated Creatinine Clearance 108 ml/min; Glucose 188 mg/dl (70-99); Magnesium 2.0 mg/dl (1.6-2.3); Potassium 4.0 mmol/L (3.5-5.1); Sodium 137 mmol/L (135-145); Total Protein 5.9 g/dl (6.3-8.2); eGFR > 60.00
--- NOTE | 2025-01-31 07:20 | W.PN.CARDCBS ---
Addendum entered and electronically signed by Christiano Torres DO 01/31/25 11:49:
Plan:
Continues with multifactorial dyspnea
Continue Lasix IV diuresis.
Cont Tikosyn load, dose lowered with QTc.
Cont to monitor QTc.
Remains sinus after spontaneous conversion.
Continue telemetry
Continue anticoagulation
Limited follow-up echocardiogram shows preserved EF with no significant valve disease.
Cont O2 for ILD
Discussed with at bedside and nursing.
Original Note:
Today's Communication / Plan
-
Continue dofetilide, follow QTc
Continue Eliquis
Diuresing with IV lasix
Impression / Plan
-
PCP: Dr. Cervantes
Cardiology: Dr. Carter
Impression:
Admitted with acute HFpEF and rapid Afib 01/29/25
Recent admission for sepsis, new A-fib, acute HF and acute inflammatory pneumonitis 11/14/2024 until 11/25/2024
Acute HFpEF
Paroxysmal atrial fibrillation
Newly diagnosed 11/14/2024 and spontaneously converted to SR
First documented recurrence of A-fib 01/29/2025
Dofetilide load started 01/30/2025
Chronic Eliquis OAC
CAD
s/p 2.25 mm and 2.5 mm Medtronic Prosper THOMAS to distal to apical LAD 06/12/24
Metastatic prostate cancer
Hyperlipidemia, LDL 195
Hyperglycemia, HgbA1c 6.5%
Lexiscan nuclear stress test 05/21/2024: Myocardial perfusion imaging without definite evidence of scan ischemia or scar, inferior soft tissue attenuation artifact present, EF 39%
Echo 04/01/23: Normal BiV size and function without wall motion abnormality, mild concentric LVH, no significant valve disease
Echo 06/11/24: EF 60 to 65%, no WMA, no MR, no /AR
Echo 11/15/2024: EF 55 to 60%, no regional wall motion abnormalities noted, moderate concentric LVH, no significant valvular disease
Echo 01/30/2025: EF 59%, no significant valvular disease
Plan:
-Presented with SOB. Admitted with rapid atrial fibrillation and acute heart failure exacerbation.
-Started on Tikosyn 500mcg Q12H 01/30. Converted to SR after 1st dose. Remains in SR on review of telemetry.
-HR stable in 80s. Diltiazem gtt stopped. Continue Toprol 25mg BID.
-QTc stable after 2nd dose at 482 ms in SR. Continue to follow.
-Continue Eliquis 5mg BID.
-Acute HF felt to be related to rapid afib. Diuresing with IV lasix 80mg BID. Hopefully he will have better response to lasix now that he is back in SR.
-Weight down 2lbs overnight, creat stable at 0.5.
-Continue daily weights, I&Os.
-Echo 01/30 noted preserved EF with no significant valvular disease.
-No complaints of chest pain. Patient had THOMAS to apical LAD 06/12/2024 and is not chronically on antiplatelet therapy in favor of Eliquis alone given increased bleeding risk. Patient does not take an aspirin a day.
-Patient has underlying ILD and is chronically on oxygen at 3 L NC.
HPI: Patient came to the ER today with SOB since yesterday and is being admitted with acute HF and rapid A-fib. Patient was admitted to [facility] from 11/14/2024 until 11/25/2024 with newly diagnosed A-fib with RVR and acute HF. Patient spontaneously
converted to NSR during that admission and was started on Eliquis 5 mg BID plus Toprol-XL 25 mg daily. Patient was seen in the office on 11/30/2024 and remained in SR. Patient was told to continue with his usual dose of Lasix 80 mg PO BID. patient
has chronic hypoxic respiratory failure and uses 3 L NC continuously. Patient says he started to feel more SOB starting yesterday and felt bloated, but denies any edema. He describes orthopnea overnight last night. In the ER now his oxygen was
increased to 4 L NC and he thinks this makes him feel better. No chest pain or palpitations. Patient was unaware that he was back in A-fib.
Progress Note - Flame Degreaser
Subjective
Date of Service: January 31, 2025
No complaints. Feels well.
Objective
Labs:
01/31/25 04:15
01/31/25 04:15
Labs
Hgb 8.7 g/dL (13.0-18.0) L 01/31/25 04:15
Hct 28.6 % (39.0-52.0) L 01/31/25 04:15
Plt Count 360 10^3/uL (130-400) 01/31/25 04:15
APTT 35.5 Sec (23.4-35.0) H 01/29/25 10:00
Sodium 137 mmol/L (135-145) 01/31/25 04:15
Potassium 4.0 mmol/L (3.5-5.1) 01/31/25 04:15
BUN 31 mg/dl (9-20) H 01/31/25 04:15
Creatinine 0.5 mg/dL (0.7-1.3) L 01/31/25 04:15
Glucose 188 mg/dl (70-99) H 01/31/25 04:15
Vital Signs and I&O:
Vital Signs
Temp Pulse Resp BP Pulse Ox
97.9 F 79 16 144/76 100
01/31/25 03:38 01/31/25 03:45 01/31/25 03:38 01/31/25 03:36 01/31/25 03:38
Vital Signs
Temp Pulse Resp BP Pulse Ox
97.9 F 79 16 144/76 100
01/31/25 03:38 01/31/25 03:45 01/31/25 03:38 01/31/25 03:36 01/31/25 03:38
Intake & Output
01/29/25 01/30/25 01/31/2502/01/25
06:59 06:59 06:59 06:59
Intake Total 1400 / 1400
Output Total 1600 / 1600 2600 / 2600
Balance -1600 / -1600 -1200 / -1200
Physical Exam
Physical Exam
GEN: No distress, awake, alert, oriented x3
HEENT: supple, anicteric, mmm
LUNGS: CTA b/l, no wheezes/rales
CV: Reg, S1/S2, no murmur
EXT: No clubbing or cyanosis. Trace edema b/l LE
NEURO: Gross non-focal
SKIN: Warm, dry, no rash
[2025-01-31] MEDS: OSCAL 500 + D 1000 MG PO ×2 (07:42→20:06)
[2025-01-31] MEDS: LASIX 80 MG IV ×2 (07:42→15:37)
[2025-01-31] MEDS: MORPHINE SULFATE 30 MG PO ×2 (07:42→20:03)
[2025-01-31] MEDS: PROTONIX 40 MG PO ×2 (07:42→20:03)
[2025-01-31 07:43] LABS: Glucose - Point of Care 154 mg/dl (70-99)
[2025-01-31] MEDS: ELIQUIS 5 MG PO ×2 (07:43→20:07)
[2025-01-31] MEDS: TYLENOL 1000 MG PO ×2 (07:43→20:04)
[2025-01-31] MEDS: IMODIUM 4 MG PO ×2 (07:43→20:06)
[2025-01-31] MEDS: NORVASC 2.5 MG PO (07:43)
[2025-01-31] MEDS: TIKOSYN 500 MCG PO (07:43)
[2025-01-31] MEDS: DELTASONE 5 MG PO ×2 (07:43→20:06)
[2025-01-31] MEDS: NOVOLOG FLEXPEN-LOW RESISTANCE 1 UNITS SC (07:43)
[2025-01-31] MEDS: TOPROL XL 25 MG PO ×2 (07:43→20:04)
[2025-01-31] MEDS: DESENEX/MITRAZOL/ZEASORB 1 APPLIC TOPICAL ×2 (07:58→21:18)
--- NOTE | 2025-01-31 08:09 | W.PN.HOSP.TC ---
Today's Communication/Plan
-
see A/P
Assessment / Plan
Assessment / Plan
HPI: 84-year-old male with past medical history of atrial fibrillation on Eliquis (has not missed any dose), heart failure, metastatic prostate cancer (to bone), inflammatory pneumonitis, chronic hypoxia on 3L at home;
p/w shortness of breath and orthopnea.
He denies fever/chills, lower extremity swelling etc.
He is compliant with his medication including Lasix.
In the ED, he was noted to be in A fib RVR and was started with Cardizem drip.
He was given additional IV lasix 40 mg for acute CHF.
A/P:
# Paroxysmal A fib with RVR POA
s/p Cardizem drip -> cont Tikosyn for A fib per card
Cont [employer] Eliquis
Card on board
# SOB likely Acute on chronic HFpEF
# Mild transaminitis could be 2/2 hepatic congestion
BNP 5600 on admission
Admission CXR showed low lung volumes with crowding of the central/vascular markings. Cannot exclude mild increased pulmonary vascularity.
Cont IV Lasix 80 mg BID , Daily weight , may consider increasing lasix dose for persistent SOB
Cont [employer] BB
# Abd distension without ascites
# Leucocytosis likely reactive and due to chronic steroid
# Recent Enterobacter bacteremia in November 2024
blood Cx negative, Procal negative, COVID negative
Monitor CBC
# Acute on chronic anemia
# History of GI bleed in July 2024
Per ED, hemetest negative
Hgb on admission at 8, today at 8.7
iron panel suggest ACD, B12 and folate levels WNL
Monitor Hgb
# Chronic hypoxic respiratory failure on 3L home O2
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
followed by Dr. Rowley as an outpatient.
Cont [employer] prednisone
Pulm on board to r/o pulm involvement
# Chronic urinary retention
patient does self-catheterization at home.
[place]ard catheterization Q6H during hospital stay
# CAD with history of stents in May 2024
Continue statin, beta-yaneli.
# History of rheumatic heart disease
# Essential hypertension
continue [employer] BB with holding parameter
# Hyperlipidemia
continue atorvastatin.
# Metastatic prostate carcinoma s/p Radical prostatectomy 2002
# History of radiation treatment
Off chemo
Follows up with Dr. Mendez and Dr. Patterson
# Chronic pain syndrome / chronic opioid dependence
continue [employer] Dilaudid, MS Contin, prednisone.
# Depression
continue sertraline
# Obesity due to excess calories
DVT prophylaxis-Eliquis
Full code
Dispo: PT OT eval when able
total time 51 min
Anticipated Discharge: > 48 hours
Subjective/Interval History
-
Date of Service: January 31, 2025
Objective Data
-
Labs:
Laboratory Results
01/31/25
04:15
WBC 12.2 H
Hgb 8.7 L
Hct 28.6 L
Plt Count 360
Sodium 137
Potassium 4.0
Chloride 98
Carbon Dioxide 30
BUN 31 H
Creatinine 0.5 L
Glucose 188 H
Calcium 8.9
Total Bilirubin 0.7
AST 73 H
ALT 35
Alkaline Phosphatase 736 H
Vital Signs:
Vital Signs
Temp Pulse Resp BP Pulse Ox
37.1 C 95 24 141/57 99
01/31/25 07:39 01/31/25 08:00 01/31/25 07:39 01/31/25 07:40 01/31/25 08:03
I&O
01/30/25 01/31/25 02/01/25
06:59 06:59 06:59
Intake Total 1400 / 1400 400 / 400
Output Total 1600 / 1600 2600 / 2600
Balance -1600 / -1600 -1200 / -1200 400 / 400
Review of Systems
-
History Source: Patient
Respiratory: Reports Trouble Breathing
Physical Exam
-
General: Well Developed, Well Nourished, Comfortable, Respiratory Distress (chronic), Conversant and Obese
HEENT: Oxygen (3-4L NC)
Respiratory: Clear to Auscultation and Non Labored Respirations; Negative Wheezes or Accessory Resp Muscle Use
Cardiac: Regular Rhythm and S1/S2
GI: Soft and Nontender
Musculoskeletal: No Edema
Skin: Warm and Dry; Negative Rash
Neuro: Awake and Alert
Psych: Calm and Intact Judgement/Insight
Data Reviewed
-
Diagnostic Radiology: Report Reviewed by me
Labs: Labs Reviewed by me
[2025-01-31 09:32] LABS: Glycohemoglobin (HgbA1c) 8.8 % (4.0-5.6)
--- NOTE | 2025-01-31 09:54 | CM ---
Pricing on Dofetilide through the patient's [employer], PP ID# [id number], is $6.41. Dofetilide 500mcq 60 tablets is not in stock at the patient's [facility]. It will take 1 day to get. Patient will need a 3 day supply to take home
--- NOTE | 2025-01-31 10:14 | PTCARENOTE ---
Tikosyn dose #3 administered. Post EKG obtained and QTc measures 575. Trina FLORES made aware and orders placed. See MAR.
--- NOTE | 2025-01-31 10:17 | W.PN.PUL.V3 ---
Today's Communication / Plan
-
Wean oxygen
Continue diuresis
Observe off steroids and antibiotics
Assessment
-
84-year-old non-smoking male with history of atrial fibrillation, CAD, heart failure, metastatic prostate cancer to the bone with chronic cough, chronic mucus production and chronic hypoxemia on 3 L of oxygen with severe gas exchange deficit,
suspected sleep disordered breathing admitted with acute on top of chronic heart failure and pulmonary consulted for ongoing mucus production and shortness of breath 01/30/2025.
Heart failure preserved EF
Rapid atrial fibrillation
Recent admission for sepsis/A-fib/heart failure and pneumonitis
Leukocytosis
Microcytic anemia-hemoglobin 8.7
Hyperglycemia
Chronic bronchitis
Conditions present prior to admission:
Recent hospitalization 11/14 through 11/25/2024 with sepsis due to Enterobacter, inflammatory pneumonitis, new onset rapid atrial fibrillation and heart failure preserved EF
CAD/stent.
Heart failure preserved EF-60-65%.
Chronic hypoxemia on 3 L oxygen at home with severe gas exchange deficit.
Interstitial lung disease
Hypertension.
Hyperlipidemia.
Obesity.
Metastatic prostate cancer to the bone/prostatectomy 2003.
Inguinal hernia repair.
Plan
Extensive cardiopulmonary history reviewed and office records reviewed in addition to multiple chest x-rays, CT chest, PET scan, lower extremity ultrasound, nuclear stress test, echocardiograms, and pulmonary functions all summarized below
The patient complains of chronic mucus production for nearly 2 years-whitish/yellow-chronically on oxygen therapy
Current decompensation likely heart failure preserved EF and rapid atrial fibrillation
Supplemental oxygen as needed-currently on 4 L - 99% saturation
Assess discharge supplemental oxygen needs
Aspiration precautions
Nebulizers if needed-currently not bronchospastic
Prednisone 5 mg twice daily
Diuresis continues as tolerated
Monitor renal function, electrolytes, intake/output, lower extremity edema and weight
Replace electrolytes as needed
Cardiology following-correspondence reviewed
Tikosyn initiated
Follow QTc
Cardizem drip will be weaned
Echocardiogram 01/30/2025-EF 58.7%, no valvular disease
Check sputum culture-unable to produce
Blood cultures negative
Follow leukocytosis and temperature curve
Consider empiric antibiotics depending on culture results
DVT prophylaxis-on Eliquis
GI prophylaxis-on pantoprazole
Nutrition
Physical therapy
Patient is also now followed at [facility] for second opinion regarding prostate cancer chemotherapy
Last saw Dr. Rowley 01/01/2025 and has an appointment 11:15 AM on [id number] CT chest Sarah Ann was recommended
Diagnostic data:
Chest x-ray 08/10/2024-NAD, stable sclerotic osseous metastases
Chest x-ray 11/20/2024-bibasilar subsegmental atelectasis
Chest x-ray 01/29/2025-mild increased pulmonary vascular congestion, no focal parenchymal consolidation
CT chest 09/19/2024-no evidence for central pulmonary embolism, bibasilar subsegmental atelectasis, widespread sclerotic bony metastases
CT chest 11/24/2024-a new 4.1 cm groundglass opacification anterior segment right upper lobe, mild peripheral inflammatory interstitial pneumonitis, extensive diffuse blastic osseous metastases
PET scan 11/12/2024-marked widespread innumerable osseous metastases of PSMA uptake
Lower extremity ultrasound 11/23/2024-no evidence for lower extremity DVT
Lexiscan nuclear stress test 05/21/2024: Myocardial perfusion imaging without definite evidence of scan ischemia or scar, inferior soft tissue attenuation artifact present, EF 39%
Echo 04/01/23: Normal BiV size and function without wall motion abnormality, mild concentric LVH, no significant valve disease
Echo 06/11/24: EF 60 to 65%, no WMA, no MR, no /AR
Echo 11/15/2024: EF 55 to 60%, no regional wall motion abnormalities noted, moderate concentric LVH, no significant valvular disease
Echo 01/30/2025-pending
Tropic 09/05/24: FVC 2.64/59%, FEV1 1.91/60%, ratio 73%, no significant BD response.� Suggestive of moderate restriction.
Pulmonary function testing: (07/25/2023)FEV1 /FVC:73%FEV1:2.42 L-80%FVC:3.33 L-79%Total lung capacity:5.27 L-70%Residual volume:1.84 L, RV 62%Expiratory reserve volume:DLCO:10.52-40%DLCO/VA:59%
Subjective Data
-
Date of Service:
Date of Service: January 31, 2025
Chief Complaint: Pulmonary Follow Up and Dyspnea Follow Up
Subjective:
Still with a cough, mostly nonproductive, some shortness of breath with exertion, no chest pain or abdominal pain
Review of Systems
General: Other (Per HPI)
Objective Data
Data Reviewed
Vital Signs / I&O:
Vital Signs
Temp Pulse Resp BP Pulse Ox
98.8 F 95 24 141/57 99
01/31/25 07:39 01/31/25 08:00 01/31/25 07:39 01/31/25 07:40 01/31/25 08:03
Intake and Output
01/30/25 01/31/25 02/01/25
06:59 06:59 06:59
Intake Total 1400 / 1400 400 / 400
Output Total 1600 / 1600 2600 / 2600 600 / 600
Balance -1600 / -1600 -1200 / -1200 -200 / -200
SaO2: 99
Nasal Cannula flow liters per minute: 4
Physical Exam
General: Respiratory Distress (n) and Comfortable
HEENT: Normocephalic, Anicteric and Moist Mucous Membranes
Cardiovascular: Regular Rhythm and Murmur
Respiratory: Crackles (At the bases), Rhonchi (n), Non-Labored Respirations, Accessory Resp Muscle Use (n) and Stridor (n)
GI: Soft, Non Distended and Non Tender
Neurology: Awake, Alert and No Motor Deficits
Skin: Warm, Good Color, Cyanosis (n) and Jaundice (n)
Labs/Micro/Reports
Lab Data
01/31/25 04:15
01/31/25 04:15
Microbiology
01/29/25 13:05 Blood/Venous Blood Culture - Preliminary
No Growth in 24 hours- Final report to follow
01/29/25 13:00 Blood/Venous Blood Culture - Preliminary
No Growth in 24 hours- Final report to follow
[2025-01-31 11:50] LABS: Glucose - Point of Care 207 mg/dl (70-99)
[2025-01-31] MEDS: NOVOLOG FLEXPEN-LOW RESISTANCE 2 UNITS SC ×2 (11:50→16:29)
[2025-01-31] MEDS: LANTUS 0.1 UNITS SC (11:50)
[2025-01-31 12:39] LABS: Glucose - Point of Care 304 mg/dl (70-99)
[2025-01-31 16:26] LABS: Glucose - Point of Care 224 mg/dl (70-99)
[2025-01-31] MEDS: LIPITOR 80 MG PO (17:17)
[2025-01-31] MEDS: ZOLOFT 50 MG PO (17:17)
[2025-01-31] MEDS: TIKOSYN 250 MCG PO (20:04)
[2025-01-31 22:03] LABS: Glucose - Point of Care 151 mg/dl (70-99)
[2025-02-01] VITALS (14 sets, daily range): BP systolic 98–156; BP diastolic 59–117; PULSE 81–90; O2SAT 98–100; BMI 29.4
--- NOTE | 2025-02-01 00:36 | PTCARENOTE ---
Received pt @ change of shift. AAOx3, VSS on 4L NC. Pt verbalizes wanting straight cath than Q6H to be able to go to bed. Straight cath'd pt for 750 mL. Dose 4 of Tikosyn given QTc 521. Discussed plan of care. Pt verbalizes understanding. Call guzman
within reach.
[2025-02-01 03:39] LABS: Hematocrit 29.4 % (39.0-52.0); Hemoglobin 8.8 g/dL (13.0-18.0); Mean Corp Hgb Conc. 29.9 g/dL (33.0-37.0); Mean Corpuscular Volume 78.6 fL (80.0-94.0); Nucleated Red Blood Cells % 0.3 % (-); Platelet Count 368 10^3/uL (130-400); Red Cell Dist. Width 21.9 % (11.5-14.5)
[2025-02-01 04:08] LABS: ALT (SGPT) 41 U/L (0-50); AST (SGOT) 91 U/L (17-59); Albumin 3.1 g/dl (3.5-5.0); Alkaline Phosphatase 693 U/L (38-126); Blood Urea Nitrogen 26 mg/dl (9-20); Calcium 8.9 mg/dl (8.4-10.2); Carbon Dioxide 34 mmol/L (22-30); Chloride 96 mmol/L (98-107); Estimated Creatinine Clearance 108 ml/min; Glucose 230 mg/dl (70-99); Magnesium 2.0 mg/dl (1.6-2.3); Potassium 4.6 mmol/L (3.5-5.1); Sodium 138 mmol/L (135-145); Total Protein 5.9 g/dl (6.3-8.2); eGFR > 60.00
--- NOTE | 2025-02-01 07:22 | W.PN.CARDCBS ---
Addendum entered and electronically signed by Tanner Lofton MD 02/01/25 10:58:
I saw and examined the patient.
The [facility]'s note was reviewed and I agree with the note.
Comment:
GEN: No distress, awake, Ox3
HEENT: supple, anicteric, mmm
LUNGS: CTA, no wheezes/rales
CV: Reg, S1/S2, /6 syst LSB, no gallop
ABD: soft, BS+, NT/ND
EXT: No edema
NEURO: Gross non-focal
SKIN: No rash
Plan:
QTc 575msec. Decrease Tikosyn 125mcg q12.
Cont Lasix 80mg IV bid, Cont Toprol, Eliquis.
Diurese for another 24 hours
Creat 0.6. Hg 8.8
with multiple CHF admissions, would check cost for Farxiga/Jardiance
Original Note:
Today's Communication / Plan
-
Continue Tikosyn 250 mcg q12H
Follow QTc on EKG
Continue diuresis
Impression / Plan
-
PCP: Dr. Cervantes
Cardiology: Dr. Carter
Impression:
Admitted with acute HFpEF and rapid Afib 01/29/25
Recent admission for sepsis, new A-fib, acute HF and acute inflammatory pneumonitis 11/14/2024 until 11/25/2024
Acute HFpEF
Paroxysmal atrial fibrillation
Newly diagnosed 11/14/2024 and spontaneously converted to SR
First documented recurrence of A-fib 01/29/2025
Dofetilide load started 01/30/2025
Chronic Eliquis OAC
CAD
s/p 2.25 mm and 2.5 mm [employer] [place] THOMAS to distal to apical LAD 06/12/24
Metastatic prostate cancer
Hyperlipidemia, LDL 195
Hyperglycemia, HgbA1c 6.5%
Lexiscan nuclear stress test 05/21/2024: Myocardial perfusion imaging without definite evidence of scan ischemia or scar, inferior soft tissue attenuation artifact present, EF 39%
Echo 04/01/23: Normal BiV size and function without wall motion abnormality, mild concentric LVH, no significant valve disease
Echo 06/11/24: EF 60 to 65%, no WMA, no MR, no /AR
Echo 11/15/2024: EF 55 to 60%, no regional wall motion abnormalities noted, moderate concentric LVH, no significant valvular disease
Echo 01/30/2025: EF 59%, no significant valvular disease
Plan:
-Presented with SOB. Admitted with rapid atrial fibrillation and acute heart failure exacerbation.
-Started on Tikosyn 500mcg Q12H 01/30. Converted to SR after 1st dose. Remains in SR on review of telemetry.
-QTc prolonged 01/31 after 3rd dose Tikosyn to 575ms. Dose reduced to 250 mcg Q12 hours. QTc improving on repeat EKG after 4th dose.
-Follow up QT this AM after 5th dose and if still long, consider reducing Tikosyn further.
-HR stable. Continue Toprol 25mg BID.
-Continue Eliquis 5mg BID.
-Acute HF felt to be related to rapid afib. Diuresing with IV lasix 80mg BID.
-Weight down another 2lbs overnight, creat stable at 0.6.
-Continue daily weights, I&Os.
-Echo 01/30 noted preserved EF with no significant valvular disease.
-No complaints of chest pain. Patient had THOMAS to apical LAD 06/12/2024 and is not chronically on antiplatelet therapy in favor of Eliquis alone given increased bleeding risk. Patient does not take an aspirin a day.
-Patient has underlying ILD and is chronically on oxygen at 3 L NC.
HPI: Patient came to the ER today with SOB since yesterday and is being admitted with acute HF and rapid A-fib. Patient was admitted to [facility] from 11/14/2024 until 11/25/2024 with newly diagnosed A-fib with RVR and acute HF. Patient spontaneously
converted to NSR during that admission and was started on Eliquis 5 mg BID plus Toprol-XL 25 mg daily. Patient was seen in the office on 11/30/2024 and remained in SR. Patient was told to continue with his usual dose of Lasix 80 mg PO BID. patient
has chronic hypoxic respiratory failure and uses 3 L NC continuously. Patient says he started to feel more SOB starting yesterday and felt bloated, but denies any edema. He describes orthopnea overnight last night. In the ER now his oxygen was
increased to 4 L NC and he thinks this makes him feel better. No chest pain or palpitations. Patient was unaware that he was back in A-fib.
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
Subjective
Date of Service: February 01, 2025
Feeling improved. Still w/ LE edema.
Objective
Labs:
02/01/25 02:53
02/01/25 02:53
Labs
Hgb 8.8 g/dL (13.0-18.0) L 02/01/25 02:53
Hct 29.4 % (39.0-52.0) L 02/01/25 02:53
Plt Count 368 10^3/uL (130-400) 02/01/25 02:53
APTT 35.5 Sec (23.4-35.0) H 01/29/25 10:00
Sodium 138 mmol/L (135-145) 02/01/25 02:53
Potassium 4.6 mmol/L (3.5-5.1) 02/01/25 02:53
BUN 26 mg/dl (9-20) H 02/01/25 02:53
Creatinine 0.6 mg/dL (0.7-1.3) L 02/01/25 02:53
Glucose 230 mg/dl (70-99) H 02/01/25 02:53
Vital Signs and I&O:
Vital Signs
Temp Pulse Resp BP Pulse Ox
97.6 F 78 16 149/83 100
02/01/25 02:34 02/01/25 03:45 02/01/25 02:34 02/01/25 02:34 02/01/25 02:34
Vital Signs
Temp Pulse Resp BP Pulse Ox
97.6 F 78 16 149/83 100
02/01/25 02:34 02/01/25 03:45 02/01/25 02:34 02/01/25 02:34 02/01/25 02:34
Intake & Output
01/30/25 01/31/25 02/01/25 02/02/25
06:59 06:59 06:59 06:59
Intake Total 1400 / 1400 800 / 800
Output Total 1600 / 1600 2600 / 2600 2225 / 2225
Balance -1600 / -1600 -1200 / -1200 -1425 / -1425
Physical Exam
Physical Exam
GEN: No distress, awake, alert, oriented x3
HEENT: supple, anicteric, mmm
LUNGS: CTA b/l, no wheezes/rales
CV: Reg, S1/S2, no murmur
EXT: No clubbing or cyanosis. Trace edema b/l LE
NEURO: Gross non-focal
SKIN: Warm, dry, no rash
[2025-02-01] MEDS: IMODIUM 4 MG PO (08:45)
[2025-02-01] MEDS: PROTONIX 40 MG PO ×2 (08:46→20:12)
[2025-02-01] MEDS: TYLENOL 1000 MG PO ×2 (08:46→20:12)
[2025-02-01] MEDS: ELIQUIS 5 MG PO ×2 (08:46→20:13)
[2025-02-01] MEDS: MORPHINE SULFATE 30 MG PO ×2 (08:47→20:13)
[2025-02-01] MEDS: NORVASC 2.5 MG PO (08:47)
[2025-02-01] MEDS: TOPROL XL 25 MG PO ×2 (08:47→20:13)
[2025-02-01] MEDS: OSCAL 500 + D 1000 MG PO ×2 (08:47→20:13)
[2025-02-01] MEDS: LASIX 80 MG IV ×2 (08:48→18:10)
[2025-02-01] MEDS: TIKOSYN 250 MCG PO (08:54)
--- NOTE | 2025-02-01 08:54 | W.PN.HOSP.TC ---
Today's Communication/Plan
-
PT/OT
diuresis
consideration for transfusion to improve O2 carrying capacity--IF cards/pulm agree
Tiksoyn on hold due to long QT
not sure if pt understands that his chronic SOB (2 years now) with O2 requirement is his baseline and that he has multiple reasons contributing to this....
Assessment / Plan
Assessment / Plan
HPI: 84-year-old male with past medical history of atrial fibrillation on Eliquis (has not missed any dose), heart failure, metastatic prostate cancer (to bone), inflammatory pneumonitis, chronic hypoxia on 3L at home;
p/w shortness of breath and orthopnea.
He denies fever/chills, lower extremity swelling etc.
He is compliant with his medication including Lasix.
In the ED, he was noted to be in A fib RVR and was started with Cardizem drip.
He was given additional IV lasix 40 mg for acute CHF.
Paroxysmal A fib with RVR POA--s/p Cardizem drip -> now loading with Tikosyn for A fib per card --tikosyn on hold 02/01 due to long QT interval--await next steps by cards--cont Eliquis
SOB likely Acute on chronic HFpEF with Mild transaminitis could be due to hepatic congestion --pro BNP elevated on admission (5600)--on 80mg IV lasix--with ILD and chronic O2 use--his SOB is likely multifactorial and not likely to improve
significantly
Leukocytosis likely reactive and due to chronic steroid (Recent Enterobacter bacteremia in November 2024)--cultures negative, procal neg, Covid neg
Acute on chronic anemia --possibly contributing to his SOB--maybe needs higher HGB for better perfusion?--History of GI bleed in July 2024, heme neg in ED--HGB 8.8--iron studies show anemia of chronic disease
Chronic hypoxic respiratory failure on 3L home O2--ILD with mild bibasilar reticular/GGO changes/Mild restrictive lung disease--cont prednisone--apprec pulm
type 2 DM--HGB A1C 8.8--cont Lantus--may need another med, insulin with meals, of adjustment of lantus (which he takes at 1200)
Chronic urinary retention --self cath at home
CAD with history of stents in May 2024--Continue statin, beta-yaneli.
History of rheumatic heart disease
Essential hypertension--continue [employer] BB with holding parameter
Hyperlipidemia--continue atorvastatin.
Metastatic prostate carcinoma s/p Radical prostatectomy 2002--History of radiation treatment--Off chemo--Follows up with Dr. Mendez and Dr. Patterson
Chronic pain syndrome/chronic opioid dependence--continue [employer] Dilaudid, MS Contin, prednisone.
Depression-continue sertraline
Obesity due to excess calories
DVT prophylaxis-Eliquis
code status--Full code
needs to work with PT/OT
Anticipated Discharge: > 48 hours
Subjective/Interval History
-
Date of Service: February 01, 2025
Patient is fine as long as he does not move around
Frustrated that it has been '2 years' of this and that it has not been 'resolved yet'
Objective Data
-
Labs:
Laboratory Results
02/01/25
02:53
WBC 12.9 H
Hgb 8.8 L
Hct 29.4 L
Plt Count 368
Sodium 138
Potassium 4.6
Chloride 96 L
Carbon Dioxide 34 H
BUN 26 H
Creatinine 0.6 L
Glucose 230 H
Calcium 8.9
Total Bilirubin 0.6
AST 91 H
ALT 41
Alkaline Phosphatase 693 H
Vital Signs:
weight change since admission
01/29/25
09:51 02/01/25
02:56
Actual Weight 107 kg 103.7 kg
max temp for 24 hours
01/31/25
19:09
Temp 99.1 F
Vital Signs
Temp Pulse Resp BP Pulse Ox
97.6 F 99 16 146/67 100
02/01/25 02:34 02/01/25 08:48 02/01/25 02:34 02/01/25 08:48 02/01/25 02:34
I&O
01/31/25 02/01/25 02/02/25
06:59 06:59 06:59
Intake Total 1400 / 1400 800 / 800
Output Total 2600 / 2600 2225 / 2225
Balance -1200 / -1200 -1425 / -1425
Review of Systems
-
All other systems: Reviewed and negative (as long as he doesn't move around)
Physical Exam
-
General: Well Developed and Well Nourished
HEENT: Normocephalic, Atraumatic and Oxygen (did not have it on---says he wears 3L at home)
Respiratory: Clear to Auscultation (anteriorly only--would not sit up for me)
Cardiac: Regular Rhythm and S1/S2
GI: Soft, Nontender, Nondistended and Normal Bowel Sounds
Musculoskeletal: No Clubbing, No Cyanosis and No Edema
Skin: Warm
Neuro: Awake
Psych: Other (aggravated over the fact that this has been ongoing for 2 years)
[2025-02-01] MEDS: NOVOLOG FLEXPEN-LOW RESISTANCE 2 UNITS SC ×2 (08:56→18:09)
[2025-02-01] MEDS: DESENEX/MITRAZOL/ZEASORB 1 APPLIC TOPICAL ×2 (08:56→20:15)
[2025-02-01] MEDS: DELTASONE 5 MG PO ×2 (09:57→20:13)
--- NOTE | 2025-02-01 10:04 | PN.DE.MGMTRT ---
Insulin Management
- -
02/01/2025 Diabetes Management Consult
Patient admitted 01/29 with c/o heart rate problem and sob. PMH Afib, chf, prostate cancer with mets to bone, inflammatory pneumonitis, diabetes. Prior to admission was taking lantus 10 units at 12 noon. A1C on admission 8.8%, cr .6, eGFR > 60.
Patient is awake alert and oriented able to discuss diabetes care. States he has only had diabetes 1 month and a half. His primary doctor started him on insulin, lantus 10 units at 12 noon, so that he could get a meter. He has a working glucose
meter with supplies.
Patient glucose yesterday 154 to 304. 304 pre lunch and 224 pre dinner and HS 151. Will continue lantus 10 units at noon and add novolog 4 units AC with low corrective.
Discussed with nurse.
Will follow.
Diabetes History
- -
Type of Diabetes: 2 requiring insulin
Pre-Admission Diabetes Regimen
02/01/25
02:53
Creatinine 0.6 L
Lab Results
Hemoglobin A1c 8.8 % (4.0-5.6) H 01/31/25 04:15
Insulin Pump Settings
IP Diabetes Regimen
01/31/25 01/31/25 01/31/25
11:49 12:38 16:25
Glucose
POC Glucose 207 H 304 H 224 H
01/31/25 02/01/25
22:01 02:53
Glucose 230 H
POC Glucose 151 H
Meal type: Dinner
Meal type: Lunch
Amount consumed: 90%
Amount consumed: 100%
Patient Education
--- NOTE | 2025-02-01 10:53 | W.PN.PUL.V3 ---
Today's Communication / Plan
-
Continue attempts at weaning oxygen.
Diuresis per cardiology.
Unable to produce sputum-observe off antibiotics
Outpatient pulmonary follow-up
Assessment
-
84-year-old non-smoking male with history of atrial fibrillation, CAD, heart failure, metastatic prostate cancer to the bone with chronic cough, chronic mucus production and chronic hypoxemia on 3 L of oxygen with severe gas exchange deficit,
suspected sleep disordered breathing admitted with acute on top of chronic heart failure and pulmonary consulted for ongoing mucus production and shortness of breath 01/30/2025.
Heart failure preserved EF
Rapid atrial fibrillation
Recent admission for sepsis/A-fib/heart failure and pneumonitis
Leukocytosis
Microcytic anemia-hemoglobin 8.7
Hyperglycemia
Chronic bronchitis
Conditions present prior to admission:
Recent hospitalization 11/14 through 11/25/2024 with sepsis due to Enterobacter, inflammatory pneumonitis, new onset rapid atrial fibrillation and heart failure preserved EF
CAD/stent.
Heart failure preserved EF-60-65%.
Chronic hypoxemia on 3 L oxygen at home with severe gas exchange deficit.
Interstitial lung disease
Hypertension.
Hyperlipidemia.
Obesity.
Metastatic prostate cancer to the bone/prostatectomy 2003.
Inguinal hernia repair.
Plan
Extensive cardiopulmonary history reviewed and office records reviewed in addition to multiple chest x-rays, CT chest, PET scan, lower extremity ultrasound, nuclear stress test, echocardiograms, and pulmonary functions all summarized below
The patient complains of chronic mucus production for nearly 2 years-whitish/yellow-chronically on oxygen therapy
Current decompensation likely heart failure preserved EF and rapid atrial fibrillation
Supplemental oxygen as needed-currently on 4 L - 99% saturation-attempt to wean
Assess discharge supplemental oxygen needs
Aspiration precautions
Nebulizers if needed-currently not bronchospastic
Prednisone 5 mg twice daily
Diuresis continues as tolerated
Monitor renal function, electrolytes, intake/output, lower extremity edema and weight
Replace electrolytes as needed
Cardiology following-correspondence reviewed
Tikosyn initiated-converted to sinus rhythm after first dose
Follow QTc
Cardizem drip will be weaned
Echocardiogram 01/30/2025-EF 58.7%, no valvular disease
Check sputum culture-unable to produce
Blood cultures negative
Follow leukocytosis and temperature curve
Observe off antibiotics
Consider empiric antibiotics depending on culture results
DVT prophylaxis-on Eliquis
GI prophylaxis-on pantoprazole
Nutrition
Physical therapy
Patient is also now followed at [facility] for second opinion regarding prostate cancer chemotherapy
Last saw Dr. Rowley 01/01/2025 and has an appointment 11:15 AM on [id number] CT chest [place] was recommended
Diagnostic data:
Chest x-ray 08/10/2024-NAD, stable sclerotic osseous metastases
Chest x-ray 11/20/2024-bibasilar subsegmental atelectasis
Chest x-ray 01/29/2025-mild increased pulmonary vascular congestion, no focal parenchymal consolidation
CT chest 09/19/2024-no evidence for central pulmonary embolism, bibasilar subsegmental atelectasis, widespread sclerotic bony metastases
CT chest 11/24/2024-a new 4.1 cm groundglass opacification anterior segment right upper lobe, mild peripheral inflammatory interstitial pneumonitis, extensive diffuse blastic osseous metastases
PET scan 11/12/2024-marked widespread innumerable osseous metastases of PSMA uptake
Lower extremity ultrasound 11/23/2024-no evidence for lower extremity DVT
Lexiscan nuclear stress test 05/21/2024: Myocardial perfusion imaging without definite evidence of scan ischemia or scar, inferior soft tissue attenuation artifact present, EF 39%
Echo 04/01/23: Normal BiV size and function without wall motion abnormality, mild concentric LVH, no significant valve disease
Echo 06/11/24: EF 60 to 65%, no WMA, no MR, no /AR
Echo 11/15/2024: EF 55 to 60%, no regional wall motion abnormalities noted, moderate concentric LVH, no significant valvular disease
Echo 01/30/2025-pending
Darian 09/05/24: FVC 2.64/59%, FEV1 1.91/60%, ratio 73%, no significant BD response.� Suggestive of moderate restriction.
Pulmonary function testing: (07/25/2023)FEV1 /FVC:73%FEV1:2.42 L-80%FVC:3.33 L-79%Total lung capacity:5.27 L-70%Residual volume:1.84 L, RV 62%Expiratory reserve volume:DLCO:10.52-40%DLCO/VA:59%
Subjective Data
-
Date of Service:
Date of Service: February 01, 2025
Chief Complaint: Pulmonary Follow Up and Dyspnea Follow Up
Subjective:
Still with cough, some diaphoresis, nonproductive, no chest congestion, wheezing, or abdominal pain
Review of Systems
General: Other (per HPI)
Objective Data
Data Reviewed
Vital Signs / I&O:
Vital Signs
Temp Pulse Resp BP Pulse Ox
98.6 F 103 18 146/67 93
02/01/25 07:07 02/01/25 09:00 02/01/25 07:07 02/01/25 08:48 02/01/25 07:07
Intake and Output
01/31/25 02/01/25 02/02/25
06:59 06:59 06:59
Intake Total 1400 / 1400 800 / 800
Output Total 2600 / 2600 2225 / 2225
Balance -1200 / -1200 -1425 / -1425
SaO2: 93
Nasal Cannula flow liters per minute: 4
Physical Exam
General: Respiratory Distress (n) and Comfortable
HEENT: Normocephalic, Anicteric and Moist Mucous Membranes
Cardiovascular: Regular Rhythm and Murmur
Respiratory: Crackles (At the bases), Rhonchi (n), Non-Labored Respirations, Accessory Resp Muscle Use (n) and Stridor (n)
GI: Soft, Non Distended and Non Tender
Neurology: Awake, Alert and No Motor Deficits
Skin: Warm, Good Color, Cyanosis (n) and Jaundice (n)
Labs/Micro/Reports
Lab Data
02/01/25 02:53
02/01/25 02:53
Microbiology
01/29/25 13:05 Blood/Venous Blood Culture - Preliminary
No Growth in 48 hours- Final report to follow
01/29/25 13:00 Blood/Venous Blood Culture - Preliminary
No Growth in 48 hours- Final report to follow
[2025-02-01 13:00] LABS: Glucose - Point of Care 264 mg/dl (70-99)
[2025-02-01] MEDS: NOVOLOG FLEXPEN-LOW RESISTANCE 3 UNITS SC (13:26)
[2025-02-01] MEDS: LANTUS 0.1 UNITS SC (13:27)
[2025-02-01] MEDS: NOVOLOG FLEXPEN 4 UNITS SC ×2 (13:27→18:10)
--- NOTE | 2025-02-01 14:56 | CM ---
Addendum entered by Leonora Contreras 02/01/25 16:45:
pt decided that he does not want to take jardiance or farxiga- he wants generic meds.
Original Note:
priced farxiga and jardiance with pts PP plan. he has a generic only perscrip plan. hhis cost for jardiance is $ 120/month - tier 3- pays 20% cost of med. farxiga's cost would be $197/mo. he is willing to try the jardiacne, i gave him the 30 day
free coupon and the indigent program applcation. pt said he will fill it out and hand it to his cardiol to fax.
[2025-02-01 18:10] LABS: Glucose - Point of Care 249 mg/dl (70-99)
[2025-02-01] MEDS: ZOLOFT 50 MG PO (18:11)
[2025-02-01] MEDS: LIPITOR 80 MG PO (18:11)
--- NOTE | 2025-02-01 18:59 | PTCARENOTE ---
Pt continues to be sr on the monitor, hr in the 80s, vss. pt offers no complaints at this time. pt worked w/ physical therapy and tolerated well. notified monica sim of QTc 511, will change evening dose and continue to monitor EKGs.
straight cathed pt for 850 ml of jose luis urine and pt tolerated well. pt educated on plan of care and pt verbalized understanding. call guzman within reach.
[2025-02-01] MEDS: TIKOSYN 125 MCG PO (20:13)
[2025-02-01] MEDS: IMODIUM PO (20:14)
[2025-02-01] MEDS: ATIVAN 0.25 MG PO (22:26)
[2025-02-01 22:29] LABS: Glucose - Point of Care 189 mg/dl (70-99)
--- NOTE | 2025-02-01 23:31 | W.PN.UPDATE ---
Update Note
Progress Note Update
Patient reverted back to afib w/RVR around 21:30, HR 130-140's, EKG showed afib w/RVR, had been in NSR previously. Patient currently on Dofetilide load as per Cardiology, dose being reduced d/t prolonged QTc. TT Cardiology bulk station agent, Dr. Murphy
Sangrigoli, OK to give Lopressor 5 mg IV x 1. If HR remains in 120's, start on cardizem gtt.
~2:30 Pt remains in the 120-130's, started on Cardizem gtt.
[2025-02-01] MEDS: LOPRESSOR 2.5 MG IV (23:48)
[2025-02-02] VITALS (8 sets, daily range): BP systolic 107–153; BP diastolic 55–97; BMI 29.1
[2025-02-02] MEDS: LOPRESSOR 2.5 MG IV (00:10)
--- NOTE | 2025-02-02 01:29 | PTCARENOTE ---
Received pt @ change of shift. AAOx3, VSS-- NSR on monitor. Discussed plan of care for evening. Pt verbalizes understanding. Call guzman within reach.
--- NOTE | 2025-02-02 01:30 | PTCARENOTE ---
Addendum entered by Shari Gardner RN 02/02/25 05:48:
IV Metoprolol not effective in rate control. Cardizem gtt initiated. Pt denies CP, palpitations @ this time. Call guzman within reach.
Original Note:
While straight cath pt, became tachycardic and flipped to A-Fib RVR. This was confirmed with an EKG post Tikosyn dose #6. Informed Cielo Eldridge NP-- ordered 2.5 mL IV metoprolol x2 to help with rate control. Pt denies chest discomfort or
additional SOB @ this time. Call guzman within reach.
[2025-02-02] MEDS: CARDIZEM 125 IV ×2 (03:24→11:40)
[2025-02-02 04:12] LABS: Hematocrit 27.9 % (39.0-52.0); Hemoglobin 8.7 g/dL (13.0-18.0); Mean Corp Hgb Conc. 31.2 g/dL (33.0-37.0); Mean Corpuscular Volume 75.4 fL (80.0-94.0); Nucleated Red Blood Cells % 0.2 % (-); Platelet Count 338 10^3/uL (130-400); Red Cell Dist. Width 22.2 % (11.5-14.5)
[2025-02-02 05:40] LABS: ALT (SGPT) 38 U/L (0-50); AST (SGOT) 71 U/L (17-59); Albumin 3.0 g/dl (3.5-5.0); Alkaline Phosphatase 583 U/L (38-126); Blood Urea Nitrogen 33 mg/dl (9-20); Calcium 9.1 mg/dl (8.4-10.2); Carbon Dioxide 35 mmol/L (22-30); Chloride 96 mmol/L (98-107); Estimated Creatinine Clearance 108 ml/min; Glucose 187 mg/dl (70-99); Magnesium 1.9 mg/dl (1.6-2.3); Potassium 5.1 mmol/L (3.5-5.1); Sodium 136 mmol/L (135-145); Total Protein 5.7 g/dl (6.3-8.2); eGFR > 60.00
[2025-02-02 05:52] LABS: Anisocytosis 2+; Normal RBC Morphology No
[2025-02-02 05:53] LABS: Hypochromasia 1+
[2025-02-02 05:54] LABS: Ovalocytes 1+; Schistocytes Occasional; Target Cells 1+
[2025-02-02 06:07] LABS: Acanthocytes Occasional; Basophilic Stippling Occasional; Polychromasia Occasional; Tear Drop Red Blood Cells Occasional
[2025-02-02 06:16] LABS: Microcytosis 1+
[2025-02-02 07:05] LABS: Glucose - Point of Care 169 mg/dl (70-99)
--- NOTE | 2025-02-02 07:55 | PTCARENOTE ---
Assumed care of pt from prev nsg shift; Pt AAOx3 w/no c/o CP or SOB, however pt does appear to be mildly dyspneic at rest. Pt's VSS stable w/HR in the 100'-120's & BP 115/71 this AM. Pt is rapid Afib on telemetry monitoring. MD aware of current HR.
Pt w/Cardizem drip infusing through a patent IV line as ordered. Pt assisted w/ordering breakfast. Call guzman within reach & plan of care ongoing.
--- NOTE | 2025-02-02 08:14 | W.PN.HOSP.TC ---
Today's Communication/Plan
-
Continue diuresis, wean off O2 as tolerated, encourage PT exercises.
Assessment / Plan
Assessment / Plan
84-year-old male with past medical history of:
atrial fibrillation on Eliquis (has not missed any dose),
heart failure,
metastatic prostate cancer (to bone),
inflammatory pneumonitis,
chronic hypoxia on 3L at home;
p/w shortness of breath and orthopnea. In the ED, he was noted to be in A fib RVR and was started with Cardizem drip.
He was given additional IV lasix 40 mg for acute CHF.
1. SOB - multifactorial, likely largest contributor is Acute on chronic HFpEF (with Mild transaminitis likely due to hepatic congestion) also with ILD and chronic O2 use
Echocardiogram 01/30/2025-EF 58.7%, no valvular disease
pro BNP elevated on admission (5600)
Continue diuresis
Monitor renal function - electrolytes, intake/output
Replace electrolytes as needed
2. Chronic hypoxic respiratory failure on 3L home O2--ILD with mild bibasilar reticular/GGO changes/Mild restrictive lung disease
appreciate pulm consult
Supplemental oxygen as needed-currently on 4 L - wean as tolerated
Assess discharge supplemental oxygen needs
Aspiration precautions
Nebulizers if needed
Prednisone 5 mg twice daily
3. Cardiac issues - several
3A. Paroxysmal A fib with RVR POA--s/p Cardizem drip - Tikosyn initiated-converted to sinus rhythm after first dose
had been loading with Tikosyn for A fib per card
tikosyn on hold 02/01 due to long QT interval
await next steps by cards
cont Eliquis
3B. CAD with history of stents in May 2024--Continue statin, beta-yaneli.
3C. History of rheumatic heart disease
3D. Essential hypertension--continue WATER PUMPER BB with holding parameter
3E. Hyperlipidemia--continue atorvastatin.
4. Leukocytosis likely reactive and due to chronic steroid (Recent Enterobacter bacteremia in November 2024)
cultures negative X 72H
procal neg,
Covid neg
Observe off abx for now
Follow leukocytosis and temperature curve
5. Acute on chronic anemia --possibly contributing to his SOB
History of GI bleed in July 2024,
heme neg in ED--HGB 8.8
iron studies show anemia of chronic disease
Follow daily
No indications for a transfusion today
6. type 2 DM
HGB A1C 8.8
cont Lantus
adjust if needed
7. Chronic urinary retention
self caths at home
Continue
8. Metastatic prostate carcinoma s/p Radical prostatectomy 2002
History of radiation treatment
Off chemo
Follows up with Dr. Mendez and Dr. Patterson
9. Chronic pain syndrome
With chronic opioid dependence
continue WATER PUMPER Dilaudid, MS Contin, prednisone.
10. Depression - continue sertraline
11. Obesity due to excess calories - Outpatient management
DVT prophylaxis-Eliquis
code status--Full code
GI prophylaxis-on pantoprazole
needs to work with PT/OT
Anticipated Discharge: > 48 hours
Subjective/Interval History
-
Date of Service: February 02, 2025
Feels well at rest. No new complaints. Still SOB with movement.
Objective Data
-
Labs:
Laboratory Results
02/02/25 02/02/25
03:22 04:37
WBC 12.5 H
Hgb 8.7 L
Hct 27.9 L
Plt Count 338
Sodium Cancelled 136
Potassium Cancelled 5.1
Chloride Cancelled 96 L
Carbon Dioxide Cancelled 35 H
BUN Cancelled 33 H
Creatinine Cancelled 0.6 L
Glucose Cancelled 187 H
Calcium Cancelled 9.1
Total Bilirubin Cancelled 0.7
AST Cancelled 71 H
ALT Cancelled 38
Alkaline Phosphatase Cancelled 583 H
Vital Signs:
Vital Signs
Temp Pulse Resp BP Pulse Ox
98.3 F 108 20 129/80 97
02/02/25 06:58 02/02/25 06:58 02/02/25 06:58 02/02/25 03:25 02/02/25 06:58
I&O
02/01/25 02/02/25 02/03/25
06:59 06:59 06:59
Intake Total 800 / 800 800 / 800
Output Total 2225 / 2225 3800 / 3800
Balance -1425 / -1425 -3000 / -3000
Review of Systems
-
History Source: Patient
All other systems: Reviewed and negative
Physical Exam
-
General: Well Developed, Well Nourished, No Apparent Distress, Comfortable and Conversant
HEENT: Normocephalic, Nose Appears Normal and Ears Appear Normal
Respiratory: Crackles
Cardiac: Regular Rhythm and S1/S2
GI: Soft, Nontender and Nondistended
Musculoskeletal: No Clubbing, No Cyanosis, Edema, Right Lower Extrem (trace) and Edema, Left Lower Extrem (trace)
Skin: Warm and Dry
Neuro: Awake, Alert, Oriented and AO x 3
Psych: Calm
Data Reviewed
-
Labs: Labs Reviewed by me
--- NOTE | 2025-02-02 09:03 | W.PN.CARDCBS ---
Addendum entered and electronically signed by Asya Ocoha MD 02/02/25 09:23:
I saw and examined the patient.
The Cargo Router's note was reviewed and I agree with the note.
Comment: Exam by me tachycardic, irregular. Oxygen in place. Coarse breath sounds. Trace edema bilateral.
Complex history with multiple medical problems including severe underlying interstitial lung disease on oxygen. Presents with recurrent paroxysmal atrial fibrillation (second event). Not felt to be a very good amiodarone candidate given severity
of lung disease. Dofetilide was started and had to be decreased serially given prolonged QT.
After discussion with electrophysiology today it is not felt that dofetilide is an ideal medicine given continued QT prolongation and potential risk of arrhythmia.
Volume status appears clinically stable but difficult to appreciate. No symptoms of angina. Lung disease followed by pulmonary.
Plan at this time:
- Rate control of atrial fibrillation which previously was paroxysmal and this is his second documented event. Discussed with electrophysiology.
Add diltiazem CD oral 180 mg daily.
Continue IV diltiazem for now and will wean off when heart rate acceptable
Continue Toprol cautiously given underlying lung disease
If this fails in the future could consider pacemaker and AVJ ablation.
Continue oral anticoagulation
- Failed antiarrhythmic drug therapy with dofetilide which was discussed with the patient given QT prolongation even on low-dose. Not felt to be a great amiodarone candidate. Probably not an acceptable ablation candidate given severity of lung
disease.
- Heart failure with preserved ejection fraction in the setting of rapid atrial fibrillation.
Rate control atrial fibrillation and rhythm control if able
Continue with IV diuretic
Assess proBNP level given difficulty determining volume status
He is willing to start Jardiance 10 mg daily. Currently not on formulary so we will use Farxiga 10 mg daily while he is in inpatient and then switch to Jardiance on discharge. Coupon provided by case management.
- Coronary artery disease
Status post stent. Stable. Risk factor modify. . Continue Eliquis.
Plan as above discussed at length with the patient. He is agreeable to proceed.
Original Note:
Today's Communication / Plan
-
Continue Cardizem drip. Cardizem 180 mg daily added.
Continue Toprol and Eliquis
Will focus on rate control and stop Tikosyn
Continue diuresis. Recheck proBNP in a.m.
Impression / Plan
-
PCP: Dr. Cervantes
Cardiology: Dr. Carter
Impression:
Admitted with acute HFpEF and rapid Afib 01/29/25
Recent admission for sepsis, new A-fib, acute HF and acute inflammatory pneumonitis 11/14/2024 until 11/25/2024
Acute HFpEF
Paroxysmal atrial fibrillation
Newly diagnosed 11/14/2024 and spontaneously converted to SR
First documented recurrence of A-fib 01/29/2025
Dofetilide load started 01/30/2025
Chronic Eliquis OAC
CAD
s/p 2.25 mm and 2.5 mm [employer] [place] THOMAS to distal to apical LAD 06/12/24
Metastatic prostate cancer
Hyperlipidemia, LDL 195
Hyperglycemia, HgbA1c 6.5%
Lexiscan nuclear stress test 05/21/2024: Myocardial perfusion imaging without definite evidence of scan ischemia or scar, inferior soft tissue attenuation artifact present, EF 39%
Echo 04/01/23: Normal BiV size and function without wall motion abnormality, mild concentric LVH, no significant valve disease
Echo 06/11/24: EF 60 to 65%, no WMA, no MR, no /AR
Echo 11/15/2024: EF 55 to 60%, no regional wall motion abnormalities noted, moderate concentric LVH, no significant valvular disease
Echo 01/30/2025: EF 59%, no significant valvular disease
Plan:
-Presented with SOB. Admitted with rapid atrial fibrillation and acute heart failure exacerbation.
-Started on Tikosyn 500mcg Q12H 01/30. Converted to SR after 1st dose, however QT then prolonged and dose needed to be reduced to 125 mcg Q12H.
-Unfortunately, patient went back into atrial fibrillation overnight 02/01. Back on Cardizem drip and heart rates remain elevated.
-Will focus on rate control alone for now as QTc remains somewhat prolonged even on low-dose Tikosyn 125 mcg every 12 hours.
-Continue Cardizem drip. Will start Cardizem 180 mg daily for now and continue Toprol 25 mg twice daily. Wean Cardizem gtt as able.
-Continue Eliquis 5mg BID.
-Continues to diurese with IV Lasix 80 mg twice daily. Will recheck proBNP in AM
-Weight down another 2 pounds overnight 226lbs on 02/02. Creat stable at 0.6
-Continue daily weights, I&Os.
-Echo 01/30 noted preserved EF with no significant valvular disease.
-No complaints of chest pain. Patient had THOMAS to apical LAD 06/12/2024 and is not chronically on antiplatelet therapy in favor of Eliquis alone given increased bleeding risk. Patient does not take an aspirin a day.
-Patient has underlying ILD and is chronically on oxygen at 3 L NC.
HPI: Patient came to the ER today with SOB since yesterday and is being admitted with acute HF and rapid A-fib. Patient was admitted to [facility] from 11/14/2024 until 11/25/2024 with newly diagnosed A-fib with RVR and acute HF. Patient spontaneously
converted to NSR during that admission and was started on Eliquis 5 mg BID plus Toprol-XL 25 mg daily. Patient was seen in the office on 11/30/2024 and remained in SR. Patient was told to continue with his usual dose of Lasix 80 mg PO BID. patient
has chronic hypoxic respiratory failure and uses 3 L NC continuously. Patient says he started to feel more SOB starting yesterday and felt bloated, but denies any edema. He describes orthopnea overnight last night. In the ER now his oxygen was
increased to 4 L NC and he thinks this makes him feel better. No chest pain or palpitations. Patient was unaware that he was back in A-fib.
Progress Note - Rental Manager
Subjective
Date of Service: February 02, 2025
Does not he felt poorly overnight with recurrence of rapid atrial fibrillation, but feels better now on Cardizem gtt.
Objective
Labs:
02/02/25 03:22
02/02/25 04:37
Labs
Hgb 8.7 g/dL (13.0-18.0) L 02/02/25 03:22
Hct 27.9 % (39.0-52.0) L 02/02/25 03:22
Plt Count 338 10^3/uL (130-400) 02/02/25 03:22
APTT 35.5 Sec (23.4-35.0) H 01/29/25 10:00
Sodium 136 mmol/L (135-145) 02/02/25 04:37
Potassium 5.1 mmol/L (3.5-5.1) 02/02/25 04:37
BUN 33 mg/dl (9-20) H 02/02/25 04:37
Creatinine 0.6 mg/dL (0.7-1.3) L 02/02/25 04:37
Glucose 187 mg/dl (70-99) H 02/02/25 04:37
Vital Signs and I&O:
Vital Signs
Temp Pulse Resp BP Pulse Ox
98.3 F 117 20 115/71 97
02/02/25 06:58 02/02/25 08:00 02/02/25 06:58 02/02/25 07:01 02/02/25 06:58
Vital Signs
Temp Pulse Resp BP Pulse Ox
98.3 F 117 20 115/71 97
02/02/25 06:58 02/02/25 08:00 02/02/25 06:58 02/02/25 07:01 02/02/25 06:58
Intake & Output
01/31/25 02/01/25 02/02/25 02/03/25
06:59 06:59 06:59 06:59
Intake Total 1400 / 1400 800 / 800 800 / 800
Output Total 2600 / 2600 2225 / 2225 3800 / 3800
Balance -1200 / -1200 -1425 / -1425 -3000 / -3000
Physical Exam
Physical Exam
GEN: No distress, awake, alert, oriented x3
HEENT: supple, anicteric, mmm
LUNGS: CTA b/l, no wheezes/rales
CV: irregularly irregular, S1/S2, no murmur
EXT: No clubbing or cyanosis. Trace edema b/l LE
NEURO: Gross non-focal
SKIN: Warm, dry, no rash
[2025-02-02] MEDS: NOVOLOG FLEXPEN-LOW RESISTANCE 1 UNITS SC (09:55)
[2025-02-02] MEDS: NOVOLOG FLEXPEN 4 UNITS SC ×3 (09:55→17:32)
[2025-02-02] MEDS: OSCAL 500 + D 1000 MG PO ×2 (09:56→20:30)
[2025-02-02] MEDS: DESENEX/MITRAZOL/ZEASORB 1 APPLIC TOPICAL ×2 (09:57→20:30)
[2025-02-02] MEDS: LASIX 80 MG IV ×2 (09:57→16:38)
[2025-02-02] MEDS: PROTONIX 40 MG PO ×2 (09:57→20:32)
[2025-02-02] MEDS: IMODIUM PO ×3 (09:57→20:35)
[2025-02-02] MEDS: MORPHINE SULFATE 30 MG PO ×2 (09:57→20:32)
[2025-02-02] MEDS: NORVASC 2.5 MG PO (09:57)
[2025-02-02] MEDS: ELIQUIS 5 MG PO ×2 (09:57→20:33)
[2025-02-02] MEDS: TYLENOL 1000 MG PO ×2 (09:58→20:32)
[2025-02-02] MEDS: TOPROL XL 25 MG PO ×2 (09:58→20:32)
[2025-02-02] MEDS: DELTASONE 5 MG PO ×2 (09:58→20:33)
[2025-02-02] MEDS: TIKOSYN PO (10:02)
[2025-02-02] MEDS: CARDIZEM CD 180 MG PO (10:05)
[2025-02-02 12:18] LABS: Glucose - Point of Care 248 mg/dl (70-99)
--- NOTE | 2025-02-02 12:43 | PTCARENOTE ---
Pt noted to be back in SR on telemetry monitoring. Cardiology notified that pt went back into ST between [id number] this AM. EKG obtained as ordered & Cardizem drip D/C'd as ordered as well.
[2025-02-02] MEDS: NOVOLOG FLEXPEN-LOW RESISTANCE 2 UNITS SC (12:49)
[2025-02-02] MEDS: LANTUS 0.1 UNITS SC (13:35)
[2025-02-02] MEDS: FLUSH (NSS) 2 FLUSH IV (16:39)
[2025-02-02 16:53] LABS: Glucose - Point of Care 391 mg/dl (70-99)
[2025-02-02] MEDS: ZOLOFT 50 MG PO (17:31)
[2025-02-02] MEDS: LIPITOR 80 MG PO (17:31)
[2025-02-02] MEDS: NOVOLOG FLEXPEN-LOW RESISTANCE 5 UNITS SC (17:32)
[2025-02-02 20:30] LABS: Glucose - Point of Care 340 mg/dl (70-99)
[2025-02-02 21:54] LABS: Glucose - Point of Care 272 mg/dl (70-99)
[2025-02-02] MEDS: ATIVAN 0.25 MG PO (22:23)
--- NOTE | 2025-02-02 23:39 | PTCARENOTE ---
Pt straight cath for 700 ml of cloudy yellow urine after scanned for 712 at 2200. Pt tolerated well.
[2025-02-03] VITALS (7 sets, daily range): BP systolic 107–154; BP diastolic 57–71; BMI 29.2
[2025-02-03 05:00] LABS: Hematocrit 27.2 % (39.0-52.0); Hemoglobin 8.3 g/dL (13.0-18.0); Mean Corp Hgb Conc. 30.5 g/dL (33.0-37.0); Mean Corpuscular Volume 76.6 fL (80.0-94.0); Nucleated Red Blood Cells % 0.3 % (-); Platelet Count 364 10^3/uL (130-400); Red Cell Dist. Width 21.9 % (11.5-14.5)
[2025-02-03 05:37] LABS: ALT (SGPT) 49 U/L (0-50); AST (SGOT) 67 U/L (17-59); Albumin 2.8 g/dl (3.5-5.0); Alkaline Phosphatase 485 U/L (38-126); Blood Urea Nitrogen 32 mg/dl (9-20); Calcium 8.8 mg/dl (8.4-10.2); Carbon Dioxide 34 mmol/L (22-30); Chloride 95 mmol/L (98-107); Estimated Creatinine Clearance 108 ml/min; Glucose 173 mg/dl (70-99); Magnesium 2.0 mg/dl (1.6-2.3); Potassium 4.0 mmol/L (3.5-5.1); Sodium 135 mmol/L (135-145); Total Protein 5.6 g/dl (6.3-8.2); eGFR > 60.00
[2025-02-03 08:04] LABS: Glucose - Point of Care 187 mg/dl (70-99)
--- NOTE | 2025-02-03 08:18 | W.PN.HOSP.TC ---
Today's Communication/Plan
-
Continue current plan by cardiology
Assessment / Plan
Assessment / Plan
84-year-old male with past medical history of:
atrial fibrillation on Eliquis (has not missed any dose),
heart failure,
metastatic prostate cancer (to bone),
inflammatory pneumonitis,
chronic hypoxia on 3L at home;
p/w shortness of breath and orthopnea. In the ED, he was noted to be in A fib RVR and was started with Cardizem drip.
He was given additional IV lasix 40 mg for acute CHF.
1. SOB - multifactorial, likely largest contributor is Acute on chronic HFpEF (with Mild transaminitis likely due to hepatic congestion) also with ILD and chronic O2 use
Echocardiogram 01/30/2025-EF 58.7%, no valvular disease
pro BNP elevated on admission (5600)
Continue diuresis
Monitor renal function - electrolytes, intake/output
Replace electrolytes as needed
2. Chronic hypoxic respiratory failure on 3L home O2--ILD with mild bibasilar reticular/GGO changes/Mild restrictive lung disease
appreciate pulm consult
Supplemental oxygen as needed-currently on 4 L - wean as tolerated
Assess discharge supplemental oxygen needs
Aspiration precautions
Nebulizers if needed
Prednisone 5 mg twice daily
3. Cardiac issues - several
3A. Paroxysmal A fib with RVR POA--s/p Cardizem drip - Tikosyn initiated-converted to sinus rhythm after first dose
had been loading with Tikosyn for A fib per card
tikosyn on hold 02/01 due to long QT interval
Await next steps by cards
Current cardiology recommendations:
'Rate control of atrial fibrillation which previously was paroxysmal and this is his second documented event.
Discussed with electrophysiology.
Add diltiazem CD oral 180 mg daily.
Continue IV diltiazem for now and will wean off when heart rate acceptable
Continue Toprol cautiously given underlying lung disease
If this fails in the future could consider pacemaker and AVJ ablation.
Continue oral anticoagulation- Failed antiarrhythmic drug therapy with dofetilide which was discussed with the patient given QT prolongation even on low-dose.
Not felt to be a great amiodarone candidate. Probably not an acceptable ablation candidate given severity of lung disease.'
'Heart failure with preserved ejection fraction in the setting of rapid atrial fibrillation.
Rate control atrial fibrillation and rhythm control if able
Continue with IV diuretic
Assess proBNP level given difficulty determining volume status
He is willing to start Jardiance 10 mg daily.
Currently not on formulary so we will use Farxiga 10 mg daily while he is in inpatient and then switch to Jardiance on discharge.
Coupon provided by case management.
Coronary artery disease
Status post stent. Stable. Risk factor modify. Continue Eliquis'
3B. CAD with history of stents in May 2024--Continue statin, beta-yaneli.
3C. History of rheumatic heart disease
3D. Essential hypertension--continue ARCH PAD CEMENTER BB with holding parameter
3E. Hyperlipidemia--continue atorvastatin.
4. Leukocytosis likely reactive and due to chronic steroid (Recent Enterobacter bacteremia in November 2024)
cultures negative X 72H
procal neg,
Covid neg
Observe off abx for now
Follow leukocytosis and temperature curve
5. Acute on chronic anemia --possibly contributing to his SOB, today 8.3/27.2
History of GI bleed in July 2024,
heme neg in ED--HGB 8.8
iron studies show anemia of chronic disease
Follow daily
No indications for a transfusion today
6. type 2 DM
HGB A1C 8.8
cont Lantus
adjust if needed
7. Chronic urinary retention
self caths at home
Continue
8. Metastatic prostate carcinoma s/p Radical prostatectomy 2002
History of radiation treatment
Off chemo
Follows up with Dr. Mendez and Dr. Patterson
9. Chronic pain syndrome
With chronic opioid dependence
continue ARCH PAD CEMENTER Dilaudid, MS Contin, prednisone.
10. Depression - continue sertraline
11. Obesity due to excess calories - Outpatient management
DVT prophylaxis-Eliquis
code status--Full code
GI prophylaxis-on pantoprazole
needs to work with PT/OT
Anticipated Discharge: > 48 hours
Subjective/Interval History
-
Date of Service: February 03, 2025
Feels ok this am but has low energy
Objective Data
-
Labs:
Laboratory Results
02/03/25
04:48
WBC 11.8 H
Hgb 8.3 L
Hct 27.2 L
Plt Count 364
Sodium 135
Potassium 4.0
Chloride 95 L
Carbon Dioxide 34 H
BUN 32 H
Creatinine 0.6 L
Glucose 173 H
Calcium 8.8
Total Bilirubin 0.6
AST 67 H
ALT 49
Alkaline Phosphatase 485 H
Vital Signs:
Vital Signs
Temp Pulse Resp BP Pulse Ox
98.6 F 94 20 154/63 98
02/03/25 07:04 02/03/25 07:04 02/03/25 07:04 02/03/25 07:04 02/03/25 07:04
I&O
02/02/25 02/03/25 02/04/25
06:59 06:59 06:59
Intake Total 800 / 800 300 / 300
Output Total 3800 / 3800 2760 / 2760
Balance -3000 / -3000 -2460 / -2460
Review of Systems
-
History Source: Patient
All other systems: Reviewed and negative
Physical Exam
-
General: Well Developed, Well Nourished, No Apparent Distress, Comfortable and Conversant
HEENT: Nose Appears Normal and Ears Appear Normal
Respiratory: Clear to Auscultation
Cardiac: Regular Rhythm and S1/S2
GI: Soft, Nontender and Nondistended
Musculoskeletal: No Clubbing and No Cyanosis
Skin: Warm and Dry
Neuro: Awake, Alert and Oriented
Psych: Calm
Data Reviewed
-
Labs: Labs Reviewed by me
[2025-02-03] MEDS: NOVOLOG FLEXPEN-LOW RESISTANCE 1 UNITS SC (08:23)
[2025-02-03] MEDS: CARDIZEM CD 180 MG PO (08:24)
[2025-02-03] MEDS: TYLENOL 1000 MG PO ×2 (08:24→21:05)
[2025-02-03] MEDS: PROTONIX 40 MG PO ×2 (08:24→21:05)
[2025-02-03] MEDS: MORPHINE SULFATE 30 MG PO ×2 (08:24→21:07)
[2025-02-03] MEDS: NOVOLOG FLEXPEN 4 UNITS SC ×3 (08:24→17:40)
[2025-02-03] MEDS: NORVASC 2.5 MG PO (08:24)
[2025-02-03] MEDS: DELTASONE 5 MG PO ×2 (08:24→21:04)
[2025-02-03] MEDS: OSCAL 500 + D 1000 MG PO ×2 (08:24→21:04)
[2025-02-03] MEDS: FLUSH (NSS) 2 FLUSH IV ×2 (08:25→16:35)
[2025-02-03] MEDS: LASIX 80 MG IV ×2 (08:25→16:35)
[2025-02-03] MEDS: DESENEX/MITRAZOL/ZEASORB 1 APPLIC TOPICAL ×2 (08:25→21:04)
[2025-02-03] MEDS: FARXIGA 10 MG PO (08:25)
[2025-02-03] MEDS: ELIQUIS 5 MG PO ×2 (08:25→21:04)
[2025-02-03] MEDS: TOPROL XL 25 MG PO ×2 (08:26→21:05)
[2025-02-03] MEDS: IMODIUM 4 MG PO ×2 (08:26→21:05)
--- NOTE | 2025-02-03 10:40 | W.PN.CARDCBS ---
Today's Communication / Plan
-
Continue oral anticoagulation
Continue Toprol-XL and diltiazem now in sinus rhythm.
Volume status continues to improve as evidenced by improved proBNP (exam difficult)
Likely switch to oral diuretic tomorrow
Further treatment per primary service and pulmonary service of underlying lung disease
Impression / Plan
-
PCP: Dr. Cervantes
Cardiology: Dr. Carter
Impression:
Admitted with acute HFpEF and rapid Afib 01/29/25
Recent admission for sepsis, new A-fib, acute HF and acute inflammatory pneumonitis 11/14/2024 until 11/25/2024
Acute HFpEF
Paroxysmal atrial fibrillation
Newly diagnosed 11/14/2024 and spontaneously converted to SR
First documented recurrence of A-fib 01/29/2025
Dofetilide load started 01/30/2025
Chronic Eliquis OAC
CAD
s/p 2.25 mm and 2.5 mm Medtronic Prosper THOMAS to distal to apical LAD 06/12/24
Metastatic prostate cancer
Hyperlipidemia, LDL 195
Hyperglycemia, HgbA1c 6.5%
Lexiscan nuclear stress test 05/21/2024: Myocardial perfusion imaging without definite evidence of scan ischemia or scar, inferior soft tissue attenuation artifact present, EF 39%
Echo 04/01/23: Normal BiV size and function without wall motion abnormality, mild concentric LVH, no significant valve disease
Echo 06/11/24: EF 60 to 65%, no WMA, no MR, no /AR
Echo 11/15/2024: EF 55 to 60%, no regional wall motion abnormalities noted, moderate concentric LVH, no significant valvular disease
Echo 01/30/2025: EF 59%, no significant valvular disease
Plan:
Complex history with multiple medical problems including severe underlying interstitial lung disease on oxygen. Presents with recurrent paroxysmal atrial fibrillation (second event). Not felt to be a very good amiodarone candidate given severity
of lung disease. Dofetilide was started and had to be decreased serially given prolonged QT. It is felt that dofetilide is not ideal medicine given continued QT prolongation and potential risk of arrhythmia.
Plan at this time:
- Atrial fibrillation with rapid ventricular response for which he now converted. Plan at this time is rate control of atrial fibrillation (failure of antiarrhythmic drug) which previously was paroxysmal (second documented event). Discussed with
electrophysiology.
He currently remains in sinus rhythm.
Added diltiazem CD oral 180 mg daily (02/02/2025).
Continue Toprol cautiously given underlying lung disease
If above measures fail in the future could consider pacemaker and AVJ ablation. This was discussed with the patient and he would be agreeable.
Continue oral anticoagulation
Failed antiarrhythmic drug therapy with dofetilide given QT prolongation even on low-dose. Not felt to be a great amiodarone candidate. Probably not an acceptable ablation candidate given severity of lung disease.
- Heart failure with preserved ejection fraction in the setting of rapid atrial fibrillation.
Rate control atrial fibrillation and rhythm control if able. Currently sinus rhythm.
Continue with IV diuretic
Volume status is difficult to assess but proBNP is gone from 4399-2447. Probably switch to oral diuretic tomorrow.
He on discharge will be switched to Jardiance 10 mg (cheaper of the SGLT2 inhibitors). Currently Jardiance not on formulary so we will use Farxiga 10 mg daily while he is in inpatient only and then switch to Jardiance on discharge. Coupon
provided by case management.
- Coronary artery disease
Status post stent. Stable. Risk factor modify. . Continue Eliquis.
- ILD and is chronically on oxygen at [address] scan of the chest was ordered and pending by other service.
Telemetry, EKGs, labs independently reviewed by me. Also discussed with nursing.
HPI: Patient came to the ER today with SOB since yesterday and is being admitted with acute HF and rapid A-fib. Patient was admitted to [facility] from 11/14/2024 until 11/25/2024 with newly diagnosed A-fib with RVR and acute HF. Patient spontaneously
converted to NSR during that admission and was started on Eliquis 5 mg BID plus Toprol-XL 25 mg daily. Patient was seen in the office on 11/30/2024 and remained in SR. Patient was told to continue with his usual dose of Lasix 80 mg PO BID. patient
has chronic hypoxic respiratory failure and uses 3 L NC continuously. Patient says he started to feel more SOB starting yesterday and felt bloated, but denies any edema. He describes orthopnea overnight last night. In the ER now his oxygen was
increased to 4 L NC and he thinks this makes him feel better. No chest pain or palpitations. Patient was unaware that he was back in A-fib.
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
Subjective
Date of Service: February 03, 2025
He has chronic shortness of breath but no other complaint noted.
Objective
Labs:
02/03/25 04:48
02/03/25 04:48
Labs
Hgb 8.3 g/dL (13.0-18.0) L 02/03/25 04:48
Hct 27.2 % (39.0-52.0) L 02/03/25 04:48
Plt Count 364 10^3/uL (130-400) 02/03/25 04:48
APTT 35.5 Sec (23.4-35.0) H 01/29/25 10:00
Sodium 135 mmol/L (135-145) 02/03/25 04:48
Potassium 4.0 mmol/L (3.5-5.1) 02/03/25 04:48
BUN 32 mg/dl (9-20) H 02/03/25 04:48
Creatinine 0.6 mg/dL (0.7-1.3) L 02/03/25 04:48
Glucose 173 mg/dl (70-99) H 02/03/25 04:48
Vital Signs and I&O:
Vital Signs
Temp Pulse Resp BP Pulse Ox
98.6 F 100 20 154/63 98
02/03/25 07:04 02/03/25 09:00 02/03/25 07:04 02/03/25 07:04 02/03/25 07:04
Vital Signs
Temp Pulse Resp BP Pulse Ox
98.6 F 100 20 154/63 98
02/03/25 07:04 02/03/25 09:00 02/03/25 07:04 02/03/25 07:04 02/03/25 07:04
Intake & Output
02/01/25 02/02/25 02/03/25 02/04/25
06:59 06:59 06:59 06:59
Intake Total 800 / 800 800 / 800 300 / 300 960 / 960
Output Total 2225 / 2225 3800 / 3800 2760 / 2760 850 / 850
Balance -1425 / -1425 -3000 / -3000 -2460 / -2460 110 / 110
Physical Exam
Physical Exam
General: Chronically ill man with oxygen
Heart: Distant heart sounds regular
Lungs: Coarse anterior breath sounds.
Extremities: No clubbing, cyanosis and trace edema bilaterally.
Neuro: Grossly nonfocal, awake, alert
[2025-02-03 11:29] LABS: Glucose - Point of Care 215 mg/dl (70-99)
[2025-02-03] MEDS: NOVOLOG FLEXPEN-LOW RESISTANCE 2 UNITS SC (12:48)
[2025-02-03] MEDS: LANTUS 0.1 UNITS SC (12:49)
--- NOTE | 2025-02-03 15:23 | W.PN.PUL3 ---
Today's Communication / Plan
-
- Continue diuresis per cardiology service
- Outpatient follow-up with [facility] pulmonary clinic
- CT chest reassuring, pulmonary team will sign off, call as needed
Assessment
-
84-year-old non-smoking male with history of atrial fibrillation, CAD, heart failure, metastatic prostate cancer to the bone with chronic cough, chronic mucus production and chronic hypoxemia on 3 L of oxygen with severe gas exchange deficit,
suspected sleep disordered breathing admitted with acute on top of chronic heart failure and pulmonary consulted for ongoing mucus production and shortness of breath 01/30/2025.
Heart failure preserved EF, Acute on chronic
Rapid atrial fibrillation
Recent admission for sepsis/A-fib/heart failure and pneumonitis
Leukocytosis
Microcytic anemia-hemoglobin 8.7
Hyperglycemia
Chronic bronchitis
Conditions present prior to admission:
Recent hospitalization 11/14 through 11/25/2024 with sepsis due to Enterobacter, inflammatory pneumonitis, new onset rapid atrial fibrillation and heart failure preserved EF
CAD/stent.
Heart failure preserved EF-60-65%.
Chronic hypoxemia on 3 L oxygen at home with severe gas exchange deficit.
Interstitial lung disease, inflammatory pneumonitis
Hypertension.
Hyperlipidemia.
Obesity.
Metastatic prostate cancer to the bone/prostatectomy 2003.
Inguinal hernia repair.
Plan
Extensive cardiopulmonary history reviewed and office records reviewed in addition to multiple chest x-rays, CT chest, PET scan, lower extremity ultrasound, nuclear stress test, echocardiograms, and pulmonary functions all summarized below
The patient complains of chronic mucus production for nearly 2 years-whitish/yellow-chronically on oxygen therapy
Current decompensation due to heart failure preserved EF and rapid atrial fibrillation
Supplemental oxygen as needed-currently on 3 L - 99% saturation- he is at baseline on 3 l/min
Aspiration precautions
Nebulizers if needed-currently not bronchospastic
h/o Inflammatory pneumonitis, felt to be ?chemotherapy related. on chronic steroids. Essentially resolved. CT today without changes suggestive of ILD.
Prednisone 5 mg twice daily, has been taking it since around Michelle time, continue for now, further tapering as out patient.
Diuresis continues as tolerated
Monitor renal function, electrolytes, intake/output, lower extremity edema and weight
Replace electrolytes as needed
Cardiology following-correspondence reviewed
Tikosyn initiated-converted to sinus rhythm after first dose
Follow QTc
Cardizem drip will be weaned
Echocardiogram 01/30/2025-EF 58.7%, no valvular disease
Check sputum culture-unable to produce
Blood cultures negative
Follow leukocytosis and temperature curve
Observe off antibiotics
Consider empiric antibiotics depending on culture results
DVT prophylaxis-on Eliquis
GI prophylaxis-on pantoprazole
Nutrition
Physical therapy
Patient is also now followed at [facility] for second opinion regarding prostate cancer chemotherapy
Last saw Dr. Rowley 01/01/2025 and has an appointment 11:15 AM on 04/09/[id number] CT chest [place] was recommended
Diagnostic data:
Chest x-ray 08/10/2024-NAD, stable sclerotic osseous metastases
Chest x-ray 11/20/2024-bibasilar subsegmental atelectasis
Chest x-ray 01/29/2025-mild increased pulmonary vascular congestion, no focal parenchymal consolidation
CT chest 09/19/2024-no evidence for central pulmonary embolism, bibasilar subsegmental atelectasis, widespread sclerotic bony metastases
CT chest 11/24/2024-a new 4.1 cm groundglass opacification anterior segment right upper lobe, mild peripheral inflammatory interstitial pneumonitis, extensive diffuse blastic osseous metastases
PET scan 11/12/2024-marked widespread innumerable osseous metastases of PSMA uptake
Lower extremity ultrasound 11/23/2024-no evidence for lower extremity DVT
Lexiscan nuclear stress test 05/21/2024: Myocardial perfusion imaging without definite evidence of scan ischemia or scar, inferior soft tissue attenuation artifact present, EF 39%
Echo 10/6/23: Normal BiV size and function without wall motion abnormality, mild concentric LVH, no significant valve disease
Echo 06/11/24: EF 60 to 65%, no WMA, no MR, no /AR
Echo 11/15/2024: EF 55 to 60%, no regional wall motion abnormalities noted, moderate concentric LVH, no significant valvular disease
Echo 01/30/2025-pending
[place] 09/05/24: FVC 2.64/59%, FEV1 1.91/60%, ratio 73%, no significant BD response.� Suggestive of moderate restriction.
Pulmonary function testing: (07/25/2023)FEV1 /FVC:73%FEV1:2.42 L-80%FVC:3.33 L-79%Total lung capacity:5.27 L-70%Residual volume:1.84 L, RV 62%Expiratory reserve volume:DLCO:10.52-40%DLCO/VA:59%
Subjective Data
-
Date of Service:
Date of Service: February 03, 2025
Chief Complaint: Pulmonary Follow Up and Dyspnea Follow Up
Subjective:
Comfortably lying in bed in no acute distress, overall feels much improved.
Review of Systems
Genitourinary: Other (All 14 systems reviewed and negative except as stated above in the history of present illness.)
Objective Data
Data Reviewed
Vital Signs / I&O / Oxygen:
Vital Signs
Temp Pulse Resp BP Pulse Ox
98.8 F 80 20 130/57 94
02/03/25 14:45 02/03/25 15:00 02/03/25 14:45 02/03/25 14:45 02/03/25 14:58
Intake and Output
02/02/25 02/03/25 02/04/25
06:59 06:59 06:59
Intake Total 800 / 800 300 / 300 1440 / 1440
Output Total 3800 / 3800 2760 / 2760 850 / 850
Balance -3000 / -3000 -2460 / -2460 590 / 590
SaO2 94
Nasal Cannula flow liters per 3
minute
Physical Exam
General: Respiratory Distress (n) and Comfortable
HEENT: Normocephalic, Anicteric and Moist Mucous Membranes
Cardiovascular: Regular Rhythm and Murmur
Respiratory: Crackles (At the bases), Rhonchi (n), Non-Labored Respirations and Stridor (n)
GI: Soft, Non Distended and Non Tender
Neurology: Awake and Alert
Skin: Warm, Good Color, Cyanosis (n) and Jaundice (n)
Labs/Micro/Reports
Lab Data
02/03/25 04:48
02/03/25 04:48
Microbiology
01/29/25 13:05 Blood/Venous Blood Culture - Final
No Growth - Final Report
01/29/25 13:00 Blood/Venous Blood Culture - Final
No Growth - Final Report
[2025-02-03 17:38] LABS: Glucose - Point of Care 287 mg/dl (70-99)
[2025-02-03] MEDS: NOVOLOG FLEXPEN-LOW RESISTANCE 3 UNITS SC (17:39)
[2025-02-03] MEDS: LIPITOR 80 MG PO (17:39)
[2025-02-03] MEDS: ZOLOFT 50 MG PO (17:42)
[2025-02-03] MEDS: FLUSH (NSS) 1 FLUSH IV (21:07)
[2025-02-03 22:27] LABS: Glucose - Point of Care 222 mg/dl (70-99)
[2025-02-03] MEDS: ATIVAN 0.25 MG PO (23:14)
--- NOTE | 2025-02-03 23:24 | PTCARENOTE ---
Received pt at change of shift resting in bed. SR w/ occ. PAC's on tele. pt denies any CP. pt JORGENSEN. Satting 98-100% on 3L O2. Q2H turn schedule followed. Straight cath pt Q6H per order. Fall precautions maintained, pt remains in bed, calls
appropriately. Call guzman within reach.
[2025-02-04 04:15] VITALS: BP 132/70
[2025-02-04 05:16] VITALS: BMI 29.3
[2025-02-04 05:29] LABS: Hematocrit 29.6 % (39.0-52.0); Hemoglobin 9.0 g/dL (13.0-18.0); Mean Corp Hgb Conc. 30.4 g/dL (33.0-37.0); Mean Corpuscular Volume 76.7 fL (80.0-94.0); Nucleated Red Blood Cells % 0.5 % (-); Platelet Count 411 10^3/uL (130-400); Red Cell Dist. Width 22.3 % (11.5-14.5)
[2025-02-04 06:12] LABS: ALT (SGPT) 64 U/L (0-50); AST (SGOT) 85 U/L (17-59); Albumin 3.0 g/dl (3.5-5.0); Alkaline Phosphatase 556 U/L (38-126); Blood Urea Nitrogen 32 mg/dl (9-20); Calcium 9.2 mg/dl (8.4-10.2); Carbon Dioxide 33 mmol/L (22-30); Chloride 95 mmol/L (98-107); Estimated Creatinine Clearance 93 ml/min; Glucose 190 mg/dl (70-99); Potassium 4.2 mmol/L (3.5-5.1); Sodium 136 mmol/L (135-145); Total Protein 6.0 g/dl (6.3-8.2); eGFR > 60.00
[2025-02-04 07:00] VITALS: BP 138/73
[2025-02-04 07:54] LABS: Glucose - Point of Care 181 mg/dl (70-99)
[2025-02-04] MEDS: CARDIZEM CD 180 MG PO (08:12)
[2025-02-04] MEDS: TOPROL XL 25 MG PO (08:12)
[2025-02-04] MEDS: FARXIGA 10 MG PO (08:12)
[2025-02-04] MEDS: MORPHINE SULFATE 30 MG PO (08:12)
[2025-02-04] MEDS: TYLENOL 1000 MG PO (08:12)
[2025-02-04] MEDS: OSCAL 500 + D 1000 MG PO (08:12)
[2025-02-04] MEDS: IMODIUM 4 MG PO (08:12)
[2025-02-04] MEDS: LASIX 80 MG IV (08:12)
[2025-02-04] MEDS: PROTONIX 40 MG PO (08:12)
[2025-02-04] MEDS: NOVOLOG FLEXPEN 6 UNITS SC ×2 (08:13→13:17)
[2025-02-04] MEDS: ELIQUIS 5 MG PO (08:13)
[2025-02-04] MEDS: NORVASC 2.5 MG PO (08:13)
[2025-02-04] MEDS: DELTASONE 5 MG PO (08:13)
[2025-02-04] MEDS: DESENEX/MITRAZOL/ZEASORB 1 APPLIC TOPICAL (08:13)
[2025-02-04] MEDS: NOVOLOG FLEXPEN-LOW RESISTANCE 1 UNITS SC ×2 (08:14→13:17)
[2025-02-04] MEDS: NOVOLOG FLEXPEN SC (08:18)
--- NOTE | 2025-02-04 08:48 | W.PN.CARDCBS ---
Addendum entered and electronically signed by Christiano Torres DO 02/04/25 09:39:
I saw and examined the patient.
The Nougat Cutter Machine's note was reviewed and I agree with the note.
Comment:
Plan:
Transition to lasix 80 mg PO BID
He declines Farxiga and Jardiance
cont Eliquis
he did not tolerate Tikosyn and amiodarone is not recommended due to his ILD
Stable for d/c
outpt follow up with Dr Carter
Discussed with Dr Chaves.
Original Note:
Today's Communication / Plan
-
Transition to PO lasix
Continue rate control for atrial fibrillation with Toprol and Diltiazem
Continue Eliquis
Continue Farxiga while admitted, transition to Jardiance at discharge
OK for discharge. Will arrange follow up.
Impression / Plan
-
PCP: Dr. Cervantes
Cardiology: Dr. Carter
Impression:
Admitted with acute HFpEF and rapid Afib 01/29/25
Recent admission for sepsis, new A-fib, acute HF and acute inflammatory pneumonitis 11/14/2024 until 11/25/2024
Acute HFpEF
Paroxysmal atrial fibrillation
Newly diagnosed 11/14/2024 and spontaneously converted to SR
First documented recurrence of A-fib 01/29/2025
Dofetilide load started 01/30/2025, stopped due to prolonged QTc.
Chronic Eliquis OAC
CAD
s/p 2.25 mm and 2.5 mm Medtronic Prosper THOMAS to distal to apical LAD 06/12/24
Metastatic prostate cancer
Hyperlipidemia, LDL 195
Hyperglycemia, HgbA1c 6.5%
Lexiscan nuclear stress test 05/21/2024: Myocardial perfusion imaging without definite evidence of scan ischemia or scar, inferior soft tissue attenuation artifact present, EF 39%
Echo 04/01/23: Normal BiV size and function without wall motion abnormality, mild concentric LVH, no significant valve disease
Echo 06/11/24: EF 60 to 65%, no WMA, no MR, no /AR
Echo 11/15/2024: EF 55 to 60%, no regional wall motion abnormalities noted, moderate concentric LVH, no significant valvular disease
Echo 01/30/2025: EF 59%, no significant valvular disease
Plan:
-Presented with SOB. Admitted with rapid atrial fibrillation and acute heart failure exacerbation.
-Started on Tikosyn 500mcg Q12H 01/30. Converted to SR after 1st dose, however QT then prolonged. Despite decreasing dose, QT remained prolonged, so Tikosyn stopped.
-Plan is to continue rate control alone for now with Toprol 25mg BID and diltiazem 180 mg daily.
-Remains in SR. May consider PPM and AVJ ablation as OP if recurrent afib noted.
-Continue Eliquis 5mg BID.
-Diuresed this admission with IV lasix. Acute heart failure felt to be related to rapid AFib. ProBNP improved.
-Weight stable at 227 lbs. Creat stable at 0.7.
-Will transition to PO lasix 80mg BID.
-Check BMP in 1 week.
-Echo 01/30 noted preserved EF with no significant valvular disease.
-Continue Farxiga 10mg daily while admitted, but will transition to Jardiance 10mg daily at discharge (cheaper)
-No complaints of chest pain. Patient had THOMAS to apical LAD 06/12/2024 and is not chronically on antiplatelet therapy in favor of Eliquis alone given increased bleeding risk. Patient does not take an aspirin a day.
-Patient has underlying ILD and is chronically on oxygen at 3 L NC.
HPI: Patient came to the ER today with SOB since yesterday and is being admitted with acute HF and rapid A-fib. Patient was admitted to [facility] from 11/14/2024 until 11/25/2024 with newly diagnosed A-fib with RVR and acute HF. Patient spontaneously
converted to NSR during that admission and was started on Eliquis 5 mg BID plus Toprol-XL 25 mg daily. Patient was seen in the office on 11/30/2024 and remained in SR. Patient was told to continue with his usual dose of Lasix 80 mg PO BID. patient
has chronic hypoxic respiratory failure and uses 3 L NC continuously. Patient says he started to feel more SOB starting yesterday and felt bloated, but denies any edema. He describes orthopnea overnight last night. In the ER now his oxygen was
increased to 4 L NC and he thinks this makes him feel better. No chest pain or palpitations. Patient was unaware that he was back in A-fib.
Progress Note - Trouble Shooter
Subjective
Date of Service: February 04, 2025
Feels well this AM.
Objective
Labs:
02/04/25 04:39
02/04/25 04:39
Labs
Hgb 9.0 g/dL (13.0-18.0) L 02/04/25 04:39
Hct 29.6 % (39.0-52.0) L 02/04/25 04:39
Plt Count 411 10^3/uL (130-400) H 02/04/25 04:39
APTT 35.5 Sec (23.4-35.0) H 01/29/25 10:00
Sodium 136 mmol/L (135-145) 02/04/25 04:39
Potassium 4.2 mmol/L (3.5-5.1) 02/04/25 04:39
BUN 32 mg/dl (9-20) H 02/04/25 04:39
Creatinine 0.7 mg/dL (0.7-1.3) 02/04/25 04:39
Glucose 190 mg/dl (70-99) H 02/04/25 04:39
Vital Signs and I&O:
Vital Signs
Temp Pulse Resp BP Pulse Ox
98.2 F 95 20 138/73 97
02/04/25 06:59 02/04/25 08:00 02/04/25 06:59 02/04/25 07:00 02/04/25 06:59
Vital Signs
Temp Pulse Resp BP Pulse Ox
98.2 F 95 20 138/73 97
02/04/25 06:59 02/04/25 08:00 02/04/25 06:59 02/04/25 07:00 02/04/25 06:59
Intake & Output
02/02/25 02/03/25 02/04/25 02/05/25
06:59 06:59 06:59 06:59
Intake Total 800 / 800 300 / 300 1920 / 1920
Output Total 3800 / 3800 2760 / 2760 3100 / 3100
Balance -3000 / -3000 -2460 / -2460 -1180 / -1180
Physical Exam
Physical Exam
GEN: No distress, awake, alert, oriented x3
HEENT: supple, anicteric, mmm
LUNGS: CTA b/l, no wheezes/rales
CV: regular, S1/S2, no murmur
EXT: No clubbing or cyanosis. Trace edema b/l LE
NEURO: Gross non-focal
SKIN: Warm, dry, no rash
--- NOTE | 2025-02-04 08:48 | W.PN.HOSP.TC ---
Today's Communication/Plan
-
see A/P
PT eval again prior to DC
Assessment / Plan
Assessment / Plan
84-year-old male with past medical history of
atrial fibrillation on Eliquis (has not missed any dose),
heart failure,
metastatic prostate cancer (to bone),
inflammatory pneumonitis,
chronic hypoxia on 3L at home;
p/w shortness of breath and orthopnea. In the ED, he was noted to be in A fib RVR and was started with Cardizem drip.
He was given additional IV lasix 40 mg for acute CHF.
A/P:
1. SOB - multifactorial, likely largest contributor is Acute on chronic HFpEF (with Mild transaminitis likely due to hepatic congestion) also with ILD and chronic O2 use
Echocardiogram 01/30/2025-EF 58.7%, no valvular disease
pro BNP elevated on admission (5600)
Continue diuresis with plan to switch to PO lasix and discharge
Monitor renal function - electrolytes, intake/output
Replace electrolytes as needed
2. Chronic hypoxic respiratory failure on 3L home O2--ILD with mild bibasilar reticular/GGO changes/Mild restrictive lung disease
appreciate pulm consult
back on home O2 at 3 L NC
Aspiration precautions
Nebulizers if needed
Cont FORESTRY AID Prednisone 5 mg twice daily
3. Cardiac issues - several
3A. Paroxysmal A fib with RVR POA--s/p Cardizem drip - Tikosyn initiated-converted to sinus rhythm after first dose
had been loading with Tikosyn for A fib per card
tikosyn on hold 02/01 due to long QT interval
Added diltiazem CD oral 180 mg daily.
Continue Toprol 25 mg BID cautiously given underlying lung disease
Continue oral anticoagulation Eliquis 5 mg BID
Not felt to be a great amiodarone candidate. Probably not an acceptable ablation candidate given severity of lung disease.'
Farxiga 10 mg daily started inpatient, but due to cost, pt declined to cont outpt (see CM's note)
Coronary artery disease
Status post stent. Stable. Risk factor modify. Continue Eliquis'
3B. CAD with history of stents in May 2024--Continue statin, beta-yaneli.
3C. History of rheumatic heart disease
3D. Essential hypertension--continue FORESTRY AID BB with holding parameter
3E. Hyperlipidemia--continue atorvastatin.
4. Leukocytosis likely reactive and due to chronic steroid (Recent Enterobacter bacteremia in November 2024)
cultures negative X 72H
procal neg, Covid neg, Observe off abx for now, Follow leukocytosis and temperature curve
5. Acute on chronic anemia --possibly contributing to his SOB, today 8.3/27.2
History of GI bleed in July 2024,
heme neg in ED--HGB 8.8
iron studies show anemia of chronic disease
Follow daily
No indications for a transfusion today
6. type 2 DM
HGB A1C 8.8
cont Lantus
adjust if needed
7. Chronic urinary retention
self caths at home
Continue
8. Metastatic prostate carcinoma s/p Radical prostatectomy 2002
History of radiation treatment
Off chemo
Follows up with Dr. Mendez and Dr. Patterson
9. Chronic pain syndrome
With chronic opioid dependence
continue FORESTRY AID Dilaudid, MS Contin, prednisone.
10. Depression - continue sertraline
11. Obesity due to excess calories - Outpatient management
DVT prophylaxis-Eliquis
code status--Full code
GI prophylaxis-on pantoprazole
Dispo: pt declined SNF, wants to go home
DW RN
DW Card, cleared for discharge
updated SO on the phone
Anticipated Discharge: Today
Subjective/Interval History
-
Date of Service: February 04, 2025
Objective Data
-
Labs:
Laboratory Results
02/04/25
04:39
WBC 11.9 H
Hgb 9.0 L
Hct 29.6 L
Plt Count 411 H
Sodium 136
Potassium 4.2
Chloride 95 L
Carbon Dioxide 33 H
BUN 32 H
Creatinine 0.7
Glucose 190 H
Calcium 9.2
Total Bilirubin 0.6
AST 85 H
ALT 64 H
Alkaline Phosphatase 556 H
Vital Signs:
Vital Signs
Temp Pulse Resp BP Pulse Ox
36.8 C 95 20 138/73 97
02/04/25 06:59 02/04/25 08:00 02/04/25 06:59 02/04/25 07:00 02/04/25 06:59
I&O
02/03/25 02/04/25 02/05/25
06:59 06:59 06:59
Intake Total 300 / 300 1920 / 1920
Output Total 2760 / 2760 3100 / 3100
Balance -2460 / -2460 -1180 / -1180
Review of Systems
-
History Source: Patient
All other systems: Reviewed and negative
Physical Exam
-
General: Well Developed, Well Nourished, Comfortable, Respiratory Distress (chronic) and Conversant
HEENT: Nose Appears Normal, Ears Appear Normal and Oxygen (3L NC)
Respiratory: Clear to Auscultation and Non Labored Respirations; Negative Accessory Resp Muscle Use
Cardiac: Regular Rhythm and S1/S2
GI: Soft, Nontender and Nondistended
Musculoskeletal: No Clubbing and No Cyanosis
Skin: Warm and Dry
Neuro: Awake and Alert
Psych: Calm and Intact Judgement/Insight
Data Reviewed
-
Labs: Labs Reviewed by me
[2025-02-04 10:42] VITALS: BP 138/63
[2025-02-04 10:54] VITALS: BP 138/63
--- NOTE | 2025-02-04 11:13 | PTCARENOTE ---
Pt w/ discharge order written. Spoke to Dr. Chaves about pt decreased mobility and weakness. Pt has not been able to get OOB even with assist x2. Pt w/ q2 turns d/t decreased mobility and being too weak to turn himself in bed. PT eval. ordered prior
to discharge.
[2025-02-04 11:45] VITALS: BP 138/87
--- NOTE | 2025-02-04 11:54 | PTCARENOTE ---
02/04/2025 DIABETES EDUCATION CONSULT
I met with Mr. Pena to review diabetes management. He has had T2D for a month, his current HbA1c is 8.8%. He wears a CGM and takes Lantus 10 units at home. He is newly prescribed Novolog 4 units with meals if needed for correction. He states
his significant other also has DM and helps him manage his medications. He is hard of hearing, but verbalized understanding that he is now on an additional insulin.
I educated and demonstrated on insulin injection technique, timing, and storage. Discussed long and short acting insulin; onset/peak/duration. Discussed normal target glucose ranges and a monitoring schedule 15 minutes before each meal when
prescribed Novolog, and preprandial AM and/or bedtime as recommended by MD. Encouraged patient to follow up with his PCP for post d/c appointment and to monitor medication and blood glucose levels. Provided list of endocrinologists if desired,
to contact insurance company to verify in network status. Patient verbalized understanding.
I educated on physiology of T2D, organ damage, managing with medications, monitoring BG, nutrition, activity, sleep and managing stress. I reinforced signs of hyperglycemia, hypoglycemia and hypoglycemia protocol; BS parameters and recommended HbA1c
goals, glucometer and CGM instructions, glucose tracker, medic alert bracelet and outpatient DSME program. Written material provided.
[2025-02-04 12:06] LABS: Glucose - Point of Care 169 mg/dl (70-99)
--- NOTE | 2025-02-04 12:15 | CM ---
Addendum entered by Bria Braden RN 02/04/25 13:08:
I spoke to the patient's SO, Kaylee, patient and are declining a hospital bed. She said they have resources and all the equipment they need at home. I notified Dr. Burden.
Original Note:
Chart reviewed. 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 PT recommending SNF, patient refusing. Patient said he has the help of his SO, DIL,
granddaughter and a private helper who comes in 2x a week for 3 hours a day. Patient agreeable to VN. Referral sent to [facility]. PT also recommending a hospital bed. Patient is waiting for his SO to come to the hospital to discuss. Patient is a
max 2 person assist who wears O2. Patient will need an ambulance transport set up to return home. Plan is for the patient to return home with [facility]. CM to assess
[2025-02-04] MEDS: LANTUS 0.14 UNITS SC (13:17)
--- NOTE | 2025-02-04 13:36 | PN.DE.MGMTRT ---
Insulin Management
- -
02/04/2025 Diabetes Management Consult Follow up
Patient admitted 01/29 with c/o heart rate problem and sob. PMH Afib, chf, prostate cancer with mets to bone, inflammatory pneumonitis, diabetes. Prior to admission was taking lantus 10 units at 12 noon. A1C on admission 8.8%, cr .6, eGFR > 60.
Patient is awake alert and oriented able to discuss diabetes care. Family at bedside very supportive. States he has only had diabetes 1 month and a half. His primary doctor started him on insulin, lantus 10 units at 12 noon, so that he could get
a meter. He has a working glucose meter with supplies.
Patient glucose yesterday 187 to 287. Fasting glucose 181, pre [id number]. Will increase lantus to 14 units at noon and increase novolog to 6 units AC with low corrective. Reinforced with patient and family the importance of novolog and taking
before each meal. Verbalized understanding.
Discussed with nurse.
Will follow.
Diabetes History
- -
Type of Diabetes: 2 requiring insulin
Pre-Admission Diabetes Regimen
02/04/25
04:39
Creatinine 0.7
Lab Results
Hemoglobin A1c 8.8 % (4.0-5.6) H 01/31/25 04:15
Insulin Pump Settings
IP Diabetes Regimen
02/03/25 02/03/25 02/04/25
17:37 22:25 04:39
Glucose 190 H
POC Glucose 287 H 222 H
02/04/25 02/04/25
07:53 12:04
Glucose
POC Glucose 181 H 169 H
Meal type: Breakfast
Meal type: Lunch
Amount consumed: 70%
Amount consumed: 100%
Patient Education
--- NOTE | 2025-02-04 14:15 | W.DCSUMMARY ---
Discharge Summary
Discharge Data
Date of Admission: 01/29/25
Date of Discharge: 02/04/25
Total time spent discharging patient (in min): 40
-
Pending Results: No
Hospital Course
Principal Diagnosis:
Shortness of breath with acute on chronic diastolic heart failure, with mild transaminitis likely due to hepatic congestion
Paroxysmal Atrial fib with rapid rate, converted to sinus rhythm after first dose of Tikosyn
Chronic Diagnoses:�
Atrial fibrillation on Eliquis
Metastatic prostate cancer (to bone),
inflammatory pneumonitis,
chronic hypoxia on 3L at home
IDDM, A1C at 8.8%, Lantus increased from 10 to 14 units, added meal time aspart at 6 units AC
Chronic urinary retention, self caths at home
Metastatic prostate carcinoma s/p Radical prostatectomy 2002
History of radiation treatment
Chronic pain syndrome with chronic opioid dependence
Depression, on sertraline
CAD with history of stents in May 2024
History of rheumatic heart disease
Essential hypertension
Hyperlipidemia, on atorvastatin.
Consultations:�
Cardiology
Pulmonary
Procedures:�
None
Clinical course:�
This is a 84-year-old male with past medical history as stated above, who p/w shortness of breath and orthopnea. He was noted to be in A fib RVR on admission.
Problem 1:
Shortness of breath with acute on chronic diastolic heart failure, with mild transaminitis likely due to hepatic congestion.
His Echocardiogram this admission 01/30/2025 was unrevealing: EF 58.7%, no valvular disease.
His pro-BNP was elevated on admission at 5600.
He received IV lasix 80 mg BID while in the hospital, and was discharged on the same PO dose following discharge.
Problem 2:
Paroxysmal A fib with RVR POA.
This was initially treated with Cardizem drip.
He also received Tikosyn and was converted to sinus rhythm after the first dose.
Tikosyn was stopped on 02/01 due to long QT interval.
Diltiazem CD 180 mg daily was added which he can continue going forward.
He can continue SAND DIGGER Toprol 25 mg BID cautiously given underlying lung disease.
He can continue oral anticoagulation Eliquis 5 mg BID.
Although he was recommended to start Farxiga 10 mg daily per customer operations associate, he declined due to cost.
As for the rest of his medical problems, they were stable during his hospital stay.
The patient declined SNF, and opted for HH.
Discharge Plan
-
Patient Disposition: Home with Home Care
Discharge Diagnosis/Procedures: shortness of breath due to acute on chronic heart failure (HFpEF) with Mild transaminitis likely due to hepatic congestion;
Paroxysmal A fib with rapid rate (Tikosyn initiated and self converted to sinus rhythm after first dose, added diltiazem CD 180 mg daily).
Condition: Fair
Diet: As tolerated, Low Fat, Low Cholesterol, 2 Gram Sodium and Restrict fluids to 48 oz
Activity: As tolerated
Driving Restrictions: As prior to admission
Blood Work: CMP in 1 week
Specialty Instructions: Weigh Daily- Call MD for wt gain/loss 3 lbs overnight/5 lbs in 1 week
Referrals:
[facility] [Outside]
Mauro Cervantes MD [Family Provider, Family Practice] - in less than 1 week
Miguel Denny MD [Active, Pulmonary Medicine] - in one to two weeks
Additional Discharge Medication Instructions: We have started you with cardizem for heart rate control
Your insulin glargine was increased from 10 to 14 units.
We have added meal time insulin Aspart 6 units before each meal
Prescriptions:
New
Jardiance 10 mg tablet
10 mg PO DAILY Qty: 30 11RF
diltiazem HCl 180 mg Capsule,Extended Release 24hr
180 mg PO DAILY Qty: 30 0RF
insulin aspart U-100 100 unit/mL (3 mL) Insulin Pen
6 unit SC AC Qty: 15 0RF
Continued
atorvastatin 80 mg Tablet
80 mg PO QPM Qty: 30 0RF
metoprolol succinate 25 mg Tablet Extended Release 24 Hr
25 mg PO BID Qty: 60 0RF
therapeutic multivitamin Tablet
1 tab PO DAILY
acetaminophen [Tylenol Extra Strength] 500 mg tablet
1,000 mg PO BID
prochlorperazine maleate 10 mg Tablet
10 mg PO Q6HPRN PRN (Reason: nausea)
sertraline 50 mg Tablet
50 mg PO QPM Qty: 0
pantoprazole 40 mg Tablet,Delayed Release (Dr/Ec)
40 mg PO BID 30 Days Qty: 60 0RF
amlodipine 2.5 mg Tablet
2.5 mg PO DAILY Qty: 0 0RF
morphine 30 mg tablet
30 mg PO BID
calcium carbonate-vitamin D3 [Calcium 500 + D] 500 mg-10 mcg (400 unit) Tablet
2 tab PO BID
hydromorphone 2 mg tablet
2 mg PO Q4HPRN PRN (Reason: Breakthrough pain)
furosemide 80 mg Tablet
80 mg PO BID@0800,1600 Qty: 60 0RF
Eliquis 5 mg Tablet
5 mg PO BID Qty: 60 0RF
loperamide 2 mg Tablet
4 mg PO BID
colestipol 1 gram Tablet
1 g PO BID
prednisone 10 mg tablet
5 mg PO BID
Changed
insulin glargine [Lantus Solostar U-100 Insulin] 100 unit/mL (3 mL) Insulin Pen
14 unit SC DAILY@1200 Qty: 0 0RF
Discharge Orders:
Discharge Patient (As Directed); Ordered 02/04/25
Ordered By: Jenise Chaves
Care Plan Goals
Care Plan Goals:
Problem: Readiness for enhanced knowledge related to diagnosis and treatment plan
Goal: Understand your diagnosis and treatment plan needs, including medications if applicable.
Instructions: Know your diagnosis, underlying causes and treatment plan options, including medications if applicable. Consult with your health care team to learn about your diagnosis and treatment plan, including medications if applicable.
Discharge Date and Time
Print Language: ARMENIAN
--- NOTE | 2025-02-04 15:06 | PTCARENOTE ---
IV and tele removed. Discharge instructions reviewed w/ pt and significant other and verbalizes understanding. Belongings collected and sent home w/ S.O. Pt escorted home via ambulance to home.
== END 2025-02-04 15:12 | disposition home or self-care (01) | DRG 291 ==
LOC: IVU 12:58
PROVIDERS: Internal Medicine; Nurse Practitioner; Physician Assistant; ADMITTING PHYSICIAN Internal Medicine; CONSULT PHYSICIAN Internal Medicine Cardiovascular Disease; CONSULT PHYSICIAN Internal Medicine Critical Care Medicine; EMERGENCY PHYSICIAN Emergency Medicine; FAMILY PHYSICIAN Family Medicine
DX: I11.0 Hypertensive heart disease with heart failure (principal); I50.33 Acute on chronic diastolic (congestive) heart failure; F11.20 Opioid dependence, uncomplicated; J84.9 Interstitial pulmonary disease, unspecified; J96.11 Chronic respiratory failure with hypoxia; K76.1 Chronic passive congestion of liver; I48.0 Paroxysmal atrial fibrillation; Z79.01 Long term (current) use of anticoagulants; Z92.3 Personal history of irradiation; Z90.79 Acquired absence of other genital organ(s); Z85.46 Personal history of malignant neoplasm of prostate; Z85.830 Personal history of malignant neoplasm of bone; Z87.891 Personal history of nicotine dependence; Z80.0 Family history of malignant neoplasm of digestive organs; Z80.42 Family history of malignant neoplasm of prostate; Z80.3 Family history of malignant neoplasm of breast; F32.A Depression, unspecified; E66.09 Other obesity due to excess calories; Z68.29 Body mass index [BMI] 29.0-29.9, adult; Z99.81 Dependence on supplemental oxygen; Z95.5 Presence of coronary angioplasty implant and graft; I25.10 Atherosclerotic heart disease of native coronary artery without angina pectoris; E78.00 Pure hypercholesterolemia, unspecified; D72.828 Other elevated white blood cell count; T38.0X5A Adverse effect of glucocorticoids and synthetic analogues, initial encounter; Z79.52 Long term (current) use of systemic steroids; R33.9 Retention of urine, unspecified; G89.4 Chronic pain syndrome; D50.9 Iron deficiency anemia, unspecified; Z11.52 Encounter for screening for COVID-19; E11.65 Type 2 diabetes mellitus with hyperglycemia; I45.10 Unspecified right bundle-branch block; J42 Unspecified chronic bronchitis; Z79.4 Long term (current) use of insulin; Z79.899 Other long term (current) drug therapy
CPT/HCPCS: 71046; 71250; 76705; 80053; 82607; 82728; 82746; 82962; 83036; 83540; 83550; 83735; 83880; 84145; 85025; 85027; 85730; 87040; 87811; 93005; 93308; 93321; 93325; 96365; 96366; 96375; 97163; 97167; 97530; 99291; Q9950

== ENCOUNTER → 2025-02-08 11:07 | Outpatient (REF) | payer OTHER, MEDICARE, SELFPAY ==
[2025-02-08 12:12] LABS: ALT (SGPT) 47 U/L (0-50); AST (SGOT) 40 U/L (17-59); Albumin 2.9 g/dl (3.5-5.0); Alkaline Phosphatase 394 U/L (38-126); Blood Urea Nitrogen 25 mg/dl (9-20); Calcium 8.2 mg/dl (8.4-10.2); Carbon Dioxide 35 mmol/L (22-30); Chloride 98 mmol/L (98-107); Glucose 131 mg/dl (70-99); Potassium 3.9 mmol/L (3.5-5.1); Sodium 139 mmol/L (135-145); Total Protein 5.7 g/dl (6.3-8.2); eGFR > 60.00
[2025-02-08 12:16] LABS: Hematocrit 28.4 % (39.0-52.0); Hemoglobin 8.5 g/dL (13.0-18.0); Mean Corp Hgb Conc. 29.9 g/dL (33.0-37.0); Mean Corpuscular Volume 77.8 fL (80.0-94.0); Nucleated Red Blood Cells % 0.5 % (-); Platelet Count 441 10^3/uL (130-400); Red Cell Dist. Width 23.1 % (11.5-14.5)
[2025-02-08 12:17] LABS: Anisocytosis 1+; Hypochromasia 1+; Normal RBC Morphology No; Polychromasia 1+
[2025-02-08 12:18] LABS: Acanthocytes 1+; Ovalocytes 1+
== END ==
LOC: OLABP 11:07
PROVIDERS: ATTENDING PHYSICIAN Family Medicine
DX: J96.11 Chronic respiratory failure with hypoxia (principal); C61 Malignant neoplasm of prostate; I50.9 Heart failure, unspecified; E11.9 Type 2 diabetes mellitus without complications; R06.00 Dyspnea, unspecified; E78.5 Hyperlipidemia, unspecified; F32.A Depression, unspecified; I10 Essential (primary) hypertension; I48.91 Unspecified atrial fibrillation; J84.9 Interstitial pulmonary disease, unspecified; R33.9 Retention of urine, unspecified
CPT/HCPCS: 36415; 80053; 85025

== ENCOUNTER → 2025-02-28 16:22 | Outpatient (REF) | payer OTHER, MEDICARE, SELFPAY ==
[2025-02-28 17:16] LABS: Hematocrit 25.7 % (39.0-52.0); Hemoglobin 7.7 g/dL (13.0-18.0); Mean Corp Hgb Conc. 30.0 g/dL (33.0-37.0); Mean Corpuscular Volume 78.1 fL (80.0-94.0); Nucleated Red Blood Cells % 0.7 % (-); Platelet Count 356 10^3/uL (130-400); Red Cell Dist. Width 24.7 % (11.5-14.5)
[2025-02-28 17:20] LABS: Blood Urea Nitrogen 24 mg/dl (9-20); Calcium 8.5 mg/dl (8.4-10.2); Carbon Dioxide 31 mmol/L (22-30); Chloride 99 mmol/L (98-107); Glucose 165 mg/dl (70-99); Potassium 4.0 mmol/L (3.5-5.1); Sodium 133 mmol/L (135-145); eGFR > 60.00
[2025-02-28 17:43] LABS: Acanthocytes 1+; Anisocytosis 1+; Hypochromasia 1+; Normal RBC Morphology No; Ovalocytes 1+; Polychromasia 1+
== END ==
LOC: OLABP 16:22
PROVIDERS: ATTENDING PHYSICIAN Family Medicine
DX: J96.11 Chronic respiratory failure with hypoxia (principal); R06.00 Dyspnea, unspecified; I50.9 Heart failure, unspecified; E11.9 Type 2 diabetes mellitus without complications
CPT/HCPCS: 36415; 80048; 85025

== ENCOUNTER → 2025-03-05 10:49 | Outpatient (REF) | payer OTHER, MEDICARE, SELFPAY ==
[2025-03-05 11:52] LABS: Hematocrit 25.4 % (39.0-52.0); Hemoglobin 7.4 g/dL (13.0-18.0); Mean Corp Hgb Conc. 29.1 g/dL (33.0-37.0); Mean Corpuscular Volume 79.4 fL (80.0-94.0); Platelet Count 419 10^3/uL (130-400); Red Cell Dist. Width 25.2 % (11.5-14.5)
[2025-03-05 13:39] LABS: Blood Urea Nitrogen 24 mg/dl (9-20); Calcium 8.5 mg/dl (8.4-10.2); Carbon Dioxide 31 mmol/L (22-30); Chloride 100 mmol/L (98-107); Glucose 127 mg/dl (70-99); Potassium 4.3 mmol/L (3.5-5.1); Sodium 137 mmol/L (135-145); eGFR > 60.00
== END ==
LOC: OLABP 10:49
PROVIDERS: ATTENDING PHYSICIAN Family Medicine
DX: J96.11 Chronic respiratory failure with hypoxia (principal); I50.9 Heart failure, unspecified; C61 Malignant neoplasm of prostate; R06.00 Dyspnea, unspecified; C79.51 Secondary malignant neoplasm of bone; E11.9 Type 2 diabetes mellitus without complications; E78.5 Hyperlipidemia, unspecified; F11.20 Opioid dependence, uncomplicated; F32.A Depression, unspecified; I10 Essential (primary) hypertension; I48.91 Unspecified atrial fibrillation; J84.9 Interstitial pulmonary disease, unspecified; R33.9 Retention of urine, unspecified
CPT/HCPCS: 36415; 80048; 85027

== ENCOUNTER → 2025-03-07 10:18 | Outpatient (REF) | payer OTHER, MEDICARE, SELFPAY ==
[2025-03-07 11:15] LABS: Hematocrit 24.8 % (39.0-52.0); Hemoglobin 7.1 g/dL (13.0-18.0); Mean Corp Hgb Conc. 28.6 g/dL (33.0-37.0); Mean Corpuscular Volume 79.7 fL (80.0-94.0); Platelet Count 366 10^3/uL (130-400); Red Cell Dist. Width 25.2 % (11.5-14.5)
== END ==
LOC: OLABP 10:18
PROVIDERS: ATTENDING PHYSICIAN Family Medicine
DX: I10 Essential (primary) hypertension (principal); I48.91 Unspecified atrial fibrillation; J84.9 Interstitial pulmonary disease, unspecified; R33.9 Retention of urine, unspecified; J96.11 Chronic respiratory failure with hypoxia; I50.9 Heart failure, unspecified; C61 Malignant neoplasm of prostate; R06.00 Dyspnea, unspecified; C79.51 Secondary malignant neoplasm of bone; E11.9 Type 2 diabetes mellitus without complications; E78.5 Hyperlipidemia, unspecified; F11.20 Opioid dependence, uncomplicated; F32.A Depression, unspecified
CPT/HCPCS: 36415; 85027

== ENCOUNTER → 2025-03-11 11:15 | Outpatient (REF) | payer OTHER, MEDICARE, SELFPAY ==
[2025-03-11 13:19] LABS: Hematocrit 31.1 % (39.0-52.0); Hemoglobin 9.3 g/dL (13.0-18.0); Mean Corp Hgb Conc. 29.9 g/dL (33.0-37.0); Mean Corpuscular Volume 81.6 fL (80.0-94.0); Nucleated Red Blood Cells % 1.4 % (-); Platelet Count 305 10^3/uL (130-400); Red Cell Dist. Width 25.4 % (11.5-14.5)
== END ==
LOC: OLABP 11:15
PROVIDERS: ATTENDING PHYSICIAN Family Medicine
DX: I10 Essential (primary) hypertension (principal); I48.91 Unspecified atrial fibrillation; J84.9 Interstitial pulmonary disease, unspecified; R33.9 Retention of urine, unspecified; J96.11 Chronic respiratory failure with hypoxia; I50.9 Heart failure, unspecified; C61 Malignant neoplasm of prostate; R06.00 Dyspnea, unspecified; C79.51 Secondary malignant neoplasm of bone; E11.9 Type 2 diabetes mellitus without complications; E78.5 Hyperlipidemia, unspecified; F11.20 Opioid dependence, uncomplicated; F32.A Depression, unspecified
CPT/HCPCS: 85025

== ENCOUNTER → 2025-03-15 10:26 | Outpatient (REF) | payer OTHER, MEDICARE, SELFPAY ==
[2025-03-15 11:12] LABS: Reticulocyte Count 1.5 % (0.4-2.8)
[2025-03-15 12:59] LABS: Iron 37 ug/dl (49-181)
[2025-03-15 13:04] LABS: Total Iron Binding Capacity 196 ug/dl (261-462)
[2025-03-15 17:46] LABS: Ferritin 1170.0 ng/ml (17.9-464.0)
== END ==
LOC: OLABP 10:26
PROVIDERS: ATTENDING PHYSICIAN Family Medicine
DX: J96.11 Chronic respiratory failure with hypoxia (principal); R06.00 Dyspnea, unspecified; C79.51 Secondary malignant neoplasm of bone; I50.9 Heart failure, unspecified; C61 Malignant neoplasm of prostate; E11.9 Type 2 diabetes mellitus without complications; E78.5 Hyperlipidemia, unspecified; F32.A Depression, unspecified; I10 Essential (primary) hypertension; I48.91 Unspecified atrial fibrillation; J84.9 Interstitial pulmonary disease, unspecified; R33.9 Retention of urine, unspecified
CPT/HCPCS: 36415; 82728; 83540; 83550; 85045; 85652

== ENCOUNTER 2025-03-28 13:02 | Inpatient (IN) | payer MEDICARE, OTHER, SELFPAY ==
[2025-03-28] VITALS (17 sets, daily range): BP systolic 108–169; BP diastolic 56–91; BMI 29.2; BMI 28.8
--- NOTE | 2025-03-28 10:02 | ED.GENMED ---
History of Present Illness
General
Chief Complaint: Breathing Problem
Source: patient and records
Time Seen by Provider: 03/28/25 09:52
History of Present Illness
History of Present Illness:
This patient is an 84-year-old male presents to the emergency department with reported shortness of breath that he states is at baseline, but worse as of last evening. He denies associated fever, chills, cough, sore throat, rhinorrhea. He denies
abdominal pain, chest pain, back pain, neck pain, headache, dizziness. He does note palpitations currently and says that that comes and goes approximately every 2 weeks. He is compliant with his medications including this morning. He denies any
new medications. He ate and drank this morning as usual.
Past History
Past History
ED Past Medical History: Cancer (Prostate cancer with widespread metastatic disease), HTN, Hypercholesterolemia and Other (Rheumatic heart disease, A-fib, CHF, chronic hypoxia O2 dependent, urinary retention, prostates CA, CAD)
ED Past Surgical History: Orthopedic and Urological
Social History
Tobacco: Non-smoker
Alcohol: None
Personal:
Living: alone
Employment: Retired
Family History
Family History: Other (Noncontributory)
Phy Exam
Physical Exam
Physical Exam:
GENERAL: Alert , in no apparent distress
EYE: pupils equal and reactive
NECK: Supple, no significant adenopathy.
ENT: o/p clr, mm dry
CARDIAC: Irregularly irregular, tachycardic
LUNGS: Clear breath sounds bilaterally, no acute respiratory distress, no wheezes rales or rhonchi noted but decreased breath sounds bilaterally
ABDOMEN: Soft, without focal tenderness, no r/g, no cvat
NEUROLOGICAL: Alert and oriented, no focal neuro deficits
SKIN: Warm and dry, skin intact.
MUSCULOSKELETAL: No edema, well perfused.
PSYCH: Normal and appropriate interaction.
Scores
Heart Failure Risk
Heart Failure Risk Score: Not Applicable
Course
Orders/Labs/Results
Orders:
Orders
03/28/25 09:52
Electrocardiogram (*1) Urgent
Reason for Study: Shortness of Breath
EKG- Treatment ONCE
CXR2 [CR Chest - 2 Views ] Urgent
Comment:
Reason For Exam: SOB
03/28/25 Lunch
Cholesterol Lowering
At Your Request: Full Participation
Cholesterol Lowering: Sodium, 2 Gram
03/28/25 10:03
COVID-19 Antigen Urgent
Source: Nasal Swab
Complete Blood Count/With Diff Urgent
Comprehensive Metabolic Panel Urgent
Magnesium Urgent
NT-proBNP Urgent
Troponin I Urgent
Influenza A+B Rapid Molecular Urgent
JOSE Source: Nasal Swab
Specimen Description:
03/28/25 11:18
Diltiazem HCl [Cardizem] 20 mg IV NOW STA
Furosemide [Lasix] 80 mg IV NOW STA
03/28/25 11:23
Diltiazem HCl [Cardizem] 5 mg IV NOW STA
03/28/25 11:38
CT Chest PE Study Urgent
Comment:
Reason For Exam: sob
03/28/25 11:45
Diltiazem 125 mg/125 ml Nss [Cardizem] 125 mg in 125 ml IV PER PROTOCOL
Continuous dose without titration in mg/hr:: 5.0
03/28/25 11:55
Straight cath- Treatment ONCE
03/28/25 12:23
CARDIOLOGY CONSULT Routine
Consulting Provider: Andrews Vasquez
Was physician already notified: Yes
03/28/25 12:32
Admit/Transfer Patient As Directed
Co-Sign Provider:
Level of Care: Inpatient admission
Assign to:: Telemetry
Physician / Group: Andie/hospitalist
Diagnosis: A fib, CHF
Reason for Telemetry: Acute Heart Failure
Date to Stop Telemetry: 03/31/25
Time to Stop Telemetry: 11:00
Reason for Hospitalization: A fib, CHF
Expected length of stay greater than two midnights?: Yes
ELOS- Estimated Length of Stay in days: 3
I certify the patient meets the requirements for IP care: Yes
PRN Pain Medication Management As Directed
May give lesser potent ordered pain med per pt: Yes
preference::
Protocol:: Medication orders for pain may be administered in a
manner that supports deferring to patient preference
when the pt is:
- Requesting an ordered lesser potent pain medication.
Least to most potent pain medications are defined
as: acetaminophen < NSAID < tramadol < opioids
(morphine, oxycodone, hydromorphone).
- Requesting a lesser dose of the same medication IF
ORDERED.
- Requesting a less intrusive route of administration
if both routes are prescribed by the provider (PO <
IV).
03/28/25 12:34
Code Status As Directed
Resuscitation Status: Full Code
03/28/25 17:24
Bisacodyl [Dulcolax] 10 mg RECTAL [id number] PRN
Dextrose 50%-Water [Dextrose 50% Syringe] 12.5 grams IV [id number] PRN
Docusate W/Senna [Senokot-S] 1 tablet PO BIDPRN PRN
Glucagon [GlucaGen] 1 mg IM PRN PRN
Insulin Aspart Corrective Low [Novolog Flexpen-Low Resistance] See Protocol SC AC
Polyethylene Glycol Powder [Miralax] 17 grams PO DAILYPRN PRN
Prochlorperazine [Compazine] 10 mg PO Q6HPRN PRN nausea
03/28/25 17:24
Activity As Directed
Activity Level: As Tolerated
Bedside Glucose Monitoring As Directed
Frequency: AC&HS
Additional Instructions:: Change to q6h if pt on TPN, tube feeding or not eating
Bladder Scan As Directed
Follow Bladder Retention/Intermittent Cath Algorithm?: Yes
PRN if no void in __ hours: 6
Frequency: Per Retention Algorithm
If Bladder Scan Result >: 400
then:: Straight cath
Straight Cath As Directed
Frequency: Per Retention Algorithm
Patient may straight cath themselves: Yes
Additional Instructions: straight cath as needed per acute urinary retention algorithm for 24 hrs
Additional Instructions: for bladder scan greater than 400 mL
Vital Signs As Directed
Frequency: Per unit guidelines
03/28/25 18:00
Atorvastatin [Lipitor] 80 mg PO QPM
Furosemide [Lasix] 80 mg IV BID AT 0800,1600
HYDROmorphone [Dilaudid] 2 mg PO Q4HPRN PRN Breakthrough pain
Sertraline HCl [Zoloft] 50 mg PO QPM
03/28/25 20:00
Acetaminophen [Tylenol] 1,000 mg PO BID
Apixaban [Eliquis] 5 mg PO BID
Loperamide [Imodium] 4 mg PO BID
Metoprolol Xl [Toprol Xl] 25 mg PO BID
Morphine Sulfate Extended Rel. [Ms Contin (Extended Release)] 30 mg PO BID
Prednisone [Deltasone] 5 mg PO BID
colestipol See Dose Instructions PO BID
03/29/25 07:18
Basic Metabolic Panel IN AM
Complete Blood Count/No Diff IN AM
Glycohemoglobin (HgbA1c) IN AM
Magnesium IN AM
03/29/25 07:30
Insulin Aspart Pen [Novolog Flexpen] 6 units SC AC
03/29/25 08:00
Dapagliflozin [Farxiga] 10 mg PO DAILY
Pantoprazole [Protonix] 40 mg PO DAILY
03/30/25 06:00
Magnesium IN AM
03/30/25 06:01
Complete Blood Count/No Diff IN AM
03/31/25 05:00
Complete Blood Count/No Diff IN AM
Magnesium IN AM
03/31/25 11:00
DC Protocol for Telemetry ONCE
04/01/25 06:00
Complete Blood Count/No Diff IN AM
Abnormal Lab Results
03/28/25
10:03
RBC 3.60 L 10^6/uL
(4.70-6.10)
Hgb 8.7 L g/dL
(13.0-18.0)
Hct 29.4 L %
(39.0-52.0)
MCH 24.2 L pg
(27.0-31.0)
MCHC 29.6 L g/dL
(33.0-37.0)
RDW 25.2 H %
(11.5-14.5)
Abs Immat Gran (auto) 0.3 H 10^3/uL
(0-0.05)
Absolute Neuts (auto) 7.9 H 10^3/uL
(1.4-6.5)
Absolute Lymphs (auto) 0.8 L 10^3/uL
(1.2-3.4)
Absolute Monos (auto) 0.7 H 10^3/uL
(0.1-0.6)
Immature Gran % 3.3 H %
(0-0.5)
Neutrophils % 80.2 H %
(42.2-75.2)
Lymphocytes % 8.2 L %
(20.5-51.1)
BUN 26 H mg/dl
(9-20)
Creatinine 0.6 L mg/dL
(0.7-1.3)
Glucose 209 H mg/dl
(70-99)
AST 87 H U/L
(17-59)
Alkaline Phosphatase 960 H U/L
(38-126)
Troponin I 0.089 H* ng/ml
Total Protein 6.1 L g/dl
(6.3-8.2)
Albumin 3.2 L g/dl
(3.5-5.0)
03/28/25 10:03
03/28/25 10:03
Vital Signs
Initial and Last Documented VS:
Initial Vital Signs
Temp Pulse Resp BP Pulse Ox
98.0 F 124 27 141/90 93
03/28/25 09:48 03/28/25 09:48 03/28/25 09:48 03/28/25 09:48 03/28/25 09:48
Last Documented Vital Signs
Temp Pulse Resp BP Pulse Ox
98.1 F 93 20 110/55 96
03/31/25 22:51 04/01/25 00:05 04/01/25 00:05 04/01/25 00:05 04/01/25 00:05
*Pulse Oximetry
Patient hypoxic: no
*Critical Care Note
Total Time (30-74mins, 75-104mins- exclusive of procedures): Not Applicable
Update Note
Update Note:
Patient presents to the Emergency Department with ____dyspnea
Number and Complexity of Problems Addressed at the Encounter
� Chronic conditions affecting care:
� Acute Exacerbation and/or Progression of Chronic Illness:
� Differential Diagnosis includes: But not limited to heart failure, A-fib, ACS, pneumonia, pneumothorax, etc. etc.
Amount and/or Complexity of Data to be Reviewed and Analyzed
� I performed an independent evaluation of and my interpretation is:
EKG:Read by me, A-fib with RVR, no acute ischemia noted
CT: no PE. Mild pulmonary edema, small bilat effusions.
Xrays:Mild pulmonary vascular congestion.
Widespread osseous metastatic disease.
Laboratory Studies:Patient anemic at 8.7 which is essentially at baseline. Nonspecific troponin elevation which is baseline for patient. BNP noted to be elevated consistent with suspected heart failure
Other:
� Review of other/old records reveals: Discharge summary from January 2025 reviewed patient admitted at that time with dyspnea with acute on chronic diastolic heart failure with paroxysmal A-fib with rapid rate.
� Clinical information was obtained by an independent historian:
� Prescriptions/Medications Considered but not given:
� Further testing considered but not performed:
Risk of Complications and/or Morbidity or Mortality of Patient Management
� Social determinants of health affecting care:
� Discussion with other providers (PCP, Hospitalists, Consultants, etc):
� Escalation of care including admission/observation vs risk of discharge considered: Pt stable on 2LNC, noted to have mild/mod pulmonary edeam with afib with rvr. cardizem/lasix ordered, will d/w hospitalist for overnight
continued care.
ED Attending Note
-
Portions of this chart may have been created with voice recognition software.� Occasional wrong word or��sound alike� substitutions may have occurred due to the inherent limitations of voice recognition software.
Discharge Plan
Departure
Patient Disposition: Admit
Date of Disposition: 03/28/25
Time of Disposition: 11:23
Admit to: Telemetry
Presentation/result/management discussed w/ accepting MD/DO: Hospitalist
Discharge Problem:
Heart failure, A-fib
Interventions
Interventions:
*Risk Screen - Suicide Last Done: 03/28/25 09:48
*General Assessment Last Done: 03/28/25 09:48
*Neglect/Abuse Screening Last Done: 03/28/25 09:48
*ED- Fall Risk Assessment Last Done: 03/28/25 09:48
*ED COVID-19 Vaccine History Last Done: 03/28/25 09:48
*ED Influenza Vaccine History Last Done: 03/28/25 09:48
*Nursing Disposition Last Done: 03/28/25 16:19
ED- Cardiac Assessment Last Done: 03/28/25 09:48
ED- Pulmonary Assessment Last Done: 03/28/25 09:48
Discharge Date and Time
Discharge Date/Time: 03/28/25 17:12
[2025-03-28 10:15] LABS: Hematocrit 29.4 % (39.0-52.0); Hemoglobin 8.7 g/dL (13.0-18.0); Mean Corp Hgb Conc. 29.6 g/dL (33.0-37.0); Mean Corpuscular Volume 81.7 fL (80.0-94.0); Nucleated Red Blood Cells % 2.2 % (-); Platelet Count 302 10^3/uL (130-400); Red Cell Dist. Width 25.2 % (11.5-14.5)
[2025-03-28 10:28] LABS: COVID-19 Antigen Negative (Negative)
[2025-03-28 10:43] LABS: Troponin I 0.089 ng/ml
[2025-03-28 10:58] LABS: ALT (SGPT) 37 U/L (0-50); AST (SGOT) 87 U/L (17-59); Albumin 3.2 g/dl (3.5-5.0); Alkaline Phosphatase 960 U/L (38-126); Blood Urea Nitrogen 26 mg/dl (9-20); Calcium 8.6 mg/dl (8.4-10.2); Carbon Dioxide 28 mmol/L (22-30); Chloride 100 mmol/L (98-107); Estimated Creatinine Clearance 108 ml/min; Glucose 209 mg/dl (70-99); Magnesium 2.0 mg/dl (1.6-2.3); Potassium 3.7 mmol/L (3.5-5.1); Sodium 137 mmol/L (135-145); Total Protein 6.1 g/dl (6.3-8.2); eGFR > 60.00
[2025-03-28] MEDS: CARDIZEM 20 MG IV (11:27)
[2025-03-28] MEDS: LASIX 80 MG IV ×2 (11:27→19:36)
[2025-03-28] MEDS: CARDIZEM 125 IV (11:31)
--- NOTE | 2025-03-28 11:52 | CM ---
Patient seen at bedside with significant other in ED. Patient confirmed he lives in a one story home with a ramp. Patient has home O2 3 liters continuously but does not remember which company. Patient has a rolling walker and a lift chair at home.
Patient has aides and is current with [facility] at this time. Patient PCP is Dr. Cervantes and he uses the [facility]. CM will continue to follow for discharge planning needs.
Plan; home with VN; watch for home O2 needs/increase vs SNF pending medical treatment care
--- NOTE | 2025-03-28 12:18 | HPS.HSE ---
Family Physician
-
Family Physician: Mauro Cervantes
Chief Complaint
-
SOB, palpitation
History of Present Illness
HPI: 84-year-old male p/w acute on chronic shortness of breath and palpitation.
He is compliant with his medications and denies any new medications.
In the ED, he was found to be in A fib RVR with mild CHF in the ED
Medical History
Past Medical History
Past Medical History: Reports Other
Additional Past Medical History:
CAD s/p stent (05/2024),
HFpEF
HTN
HLD,
Chronic Hypoxic Resp Failure on 3L NC,
Rheumatic Heart Disease,
Metastatic Prostate Ca
Past Surgical History: Reports Other (Coronary Stent x2, Prostatectomy (2003), B/L Inguinal Hernia Repair, B/L THR)
Social History
Tobacco: Non-smoker
Alcohol: None
Drug: None
Living: With Family
Family History
Family History: Not pertinent and Other (Mother with pancreatic Ca. Brother wtih Prostate Ca. Sister with Breast Ca. )
Allergies / Home Medications
Allergies reflects when Allergies were last updated in [employer].
Home Medications with original date entered in [employer]
Allergy/Medication List:
Allergies
Allergy/AdvReac Type Severity Reaction Status Date / Time
tetanus toxoid, adsorbed Allergy Hives Verified 11/14/24 16:19
Home Medications
metoprolol succinate 25 mg tablet,extended release 24 hr 25 mg PO BID #60 tabs 06/19/24
acetaminophen 500 mg tablet (Tylenol Extra Strength) 1,000 mg PO BID mild Pain 07/29/24
therapeutic multivitamin 1 tab PO DAILY Supplement 07/29/24
prochlorperazine maleate 10 mg tablet 10 mg PO Q6HPRN PRN nausea 08/18/24
sertraline 50 mg tablet 50 mg PO QPM depression/anxiety ##0 02/22/25
amlodipine 2.5 mg tablet 2.5 mg PO DAILY #0 tabs 08/22/24
calcium 500 mg (as carbonate)-vitamin D3 10 mcg (400 unit) tablet (Calcium 500 + D) 2 tab PO BID Supplement 11/14/24
hydromorphone 2 mg tablet 2 mg PO Q4HPRN PRN Breakthrough pain 11/14/24
morphine 30 mg immediate release tablet 30 mg PO BID Pain 11/14/24
apixaban 5 mg tablet (Eliquis) 5 mg PO BID #60 tabs 11/25/24
furosemide 80 mg tablet 80 mg PO BID@0800,1600 #60 tabs 11/25/24
colestipol 1 gram tablet 1 g PO BID 01/29/25
loperamide 2 mg tablet 4 mg PO BID 01/29/25
prednisone 10 mg tablet 5 mg PO BID 01/29/25
diltiazem HCl 180 mg capsule,extended release 24 hr 180 mg PO DAILY #30 caps 02/04/25
empagliflozin 10 mg tablet (Jardiance) 10 mg PO DAILY #30 tabs 02/04/25
albuterol sulfate 2.5 mg/3 mL (0.083 %) solution for nebulization 2.5 mg inhalation R TID 03/28/25
atorvastatin 80 mg tablet 80 mg PO QPM 03/28/25
insulin aspart U-100 100 unit/mL (3 mL) subcutaneous pen 6 sliding scale dose SC AC 03/28/25
insulin glargine 100 unit/mL (3 mL) subcutaneous pen (Lantus Solostar U-100 Insulin) 14 unit SC QPM 03/28/25
pantoprazole 40 mg tablet,delayed release 40 mg PO DAILY 03/28/25
Review of Systems
-
Respiratory: Reports Trouble Breathing (mild)
Cardiac: Reports Palpitations
Physical Exam
Vital Signs
Vital Signs
Temp Pulse Resp BP Pulse Ox
36.7 C 105 23 110/70 98
03/28/25 09:48 03/28/25 11:48 03/28/25 11:48 03/28/25 11:48 03/28/25 11:48
Physical Exam
General: Well Developed, Well Nourished, Comfortable, Conversant, Respiratory Distress (chronic) and Obese
HEENT: NormoCephalic, Moist mucous membranes, Atraumatic and Oxygen (3L NC)
Respiratory: Clear and Non Labored Respirations; No Wheezes, Crackles or Accessory Resp Muscle Use
Cardiac: S1/S2, Irregular Rhythm and Tachycardia; No Murmur
GI: Soft, Non Tender, Non Distended and Normal Bowel Sounds
Neuro: Awake, Alert, Oriented and AO x 3
Psych: Calm and Intact Judgment/Insight
Laboratory Results
-
03/28/25 10:03
03/28/25 10:03
Laboratory Results
Total Bilirubin 0.7 mg/dl (0.2-1.3) 03/28/25 10:03
AST 87 U/L (17-59) H 03/28/25 10:03
ALT 37 U/L (0-50) 03/28/25 10:03
Alkaline Phosphatase 960 U/L (38-126) H 03/28/25 10:03
Troponin I 0.089 ng/ml H* 03/28/25 10:03
Data Reviewed
-
Diagnostic Radiology: Report Reviewed by me
Lab Data: Labs Reviewed by me
Impression/Plan
-
HPI: 84-year-old male p/w acute on chronic shortness of breath and palpitation.
He is compliant with his medications and denies any new medications.
In the ED, he was found to be in A fib RVR with mild CHF in the ED
A/P:
# Paroxysmal A fib with RVR POA
started Cardizem drip in ED, cont for now
Cont [employer] Eliquis
Card CS
# SOB likely Acute on chronic HFpEF
# Mild transaminitis likely 2/2 hepatic congestion
BNP 5900 on admission
Echo from 01/2025 showed EF 58%, No significant valve disease. Compared to prior echo from October 2024, no significant change.
Admission CXR showed Mild pulmonary vascular congestion. Widespread osseous metastatic disease.
CT PE ordered, follow up
s/p IV Lasix 80 mg in ED, cont IV BID
Follow daily weight
Cont [employer] BB
# Chronic anemia
Monitor Hgb
# Chronic hypoxic respiratory failure on 3L home O2
# h/o ILD
followed by Dr. Rowley as an outpatient.
Cont [employer] prednisone 5 mg daily
# Chronic urinary retention
patient does self-catheterization at home.
[place] catheterization Q6H during hospital stay
# CAD with history of stents in May 2024
Continue statin, beta-yaneli.
# History of rheumatic heart disease
# Essential hypertension
continue [employer] Norvasc and Toprol with holding parameter
# Hyperlipidemia
continue atorvastatin.
# Metastatic prostate carcinoma s/p Radical prostatectomy 2002
# History of radiation treatment
Off chemo
Follows up with Dr. Mendez and Dr. Patterson
# Chronic pain syndrome / chronic opioid dependence
continue [employer] Dilaudid, MS Contin, prednisone.
# Depression
continue sertraline
# Obesity due to excess calories
# IDDM
cont [employer] insulin, Jardiance
ISS coverage
DVT prophylaxis- Eliquis
Full code
Dispo: PT OT eval when able
--- NOTE | 2025-03-28 13:27 | CON.CAR ---
Addendum entered and electronically signed by Brandyn Ko MD 03/28/25 14:54:
Patient seen and examined
Agree with YUMIKO Adair's note and assessment
Agree with YUMIKO Adair's plan
Recurrent atrial fibrillation with rapid ventricular response
Discussed with consultants that amiodarone can be considered in the situation
Exam:
HEENT normocephalic atraumatic
JVP 6
Cor irregularly irregular soft 1 out of 6 systolic ejection murmur at axilla
Lungs clear to auscultation bilaterally
Abdomen soft nontender positive bowel sounds
No extremity edema
Nonfocal neurologically
Assessment:
Presentation with SOB
Acute on chronic HFpEF
Paroxysmal atrial fibrillation with RVR
Initially diagnosed 11/14/2024 and spontaneously converted to SRChronic Eliquis OAC
CAD
s/p 2.25 mm and 2.5 mm Medtronic Prosper THOMAS to distal to apical LAD 06/12/24Metastatic prostate cancer
Hyperlipidemia, LDL 195
DM2
Prior interstitial pneumonitis, felt to be improved
Depression/anxiety
ECHO 01/30/25: EF 58.7%, no significant valvular disease
Plan:
- Most recent echocardiogram with normal ejection fraction
- On review of prior pulmonary notes as well as CXR and Chest CT from 01/2025 admission, appears that interstitial pneumonitis felt to be improved/resolved without evidence of ILD. Discussed with pulmonary 03/28/25 and they are okay with initiation
of amiodarone for paroxysmal A-fib.
- Will place on Amio 200 mg 3 times daily and follow QTc by EKG. also on sertraline 50 mg every afternoon as outpatient.
- Currently also on IV Cardizem at 5, wean off as able. As outpatient on regimen of diltiazem 180 mg daily and Toprol 25 mg twice daily, resume as able
- Continue outpatient Eliquis
- Continue diuresis with IV Lasix 80 IV twice daily. As outpatient is on 80 mg p.o. twice daily and reports compliance
- CHF education
- chronically on 3L NC at home
- On Jardiance as an outpatient for both diabetes and CHF
- Of note, he is planned to be followed by palliative care moving forward in outpatient setting, however remains a full code
- If he does not convert to sinus rhythm can consider cardioversion after adequate amiodarone loading
Original Note:
Consultation
Consultation Request
Date/Time Consultation Performed: 03/28/25
Requesting Provider: Dr. Chaves
Performing Provider: Shruthi Adair PA-C for Dr. Ko
Reason for Consultation: CHF, afib
Medical History
-
Chief Complaint: SOB
History of Present Illness:
Patient with metastatic prostate cancer, CAD with prior LAD PCI came to the ER today with SOB starting yesterday afternoon and is being admitted with acute HF and rapid A-fib. He feels as though he went into afib this morning. He was initially
diagnosed with CHF and afib 10/2024 then was readmitted 01/2025. Historically patient has been rate controlled with afib as he is felt to have ILD with concern for use of amiodarone in this setting. Previously recommended for PPM and AVJ ablation if
were to recur with afib. During 01/2025 admission was noted by pulmonary to have history of inflammatory pneumonitis which was felt to be possibly chemotherapy related and was essentially resolved, with CT from 01/2025 without changes suggestive of
ILD. he reports he has been compliant with lasix as OP and weight has been stable around 227 pounds however reports his abd feels more bloated. He is chronically on 3L NC at home. of note, he states he is starting with palliative care shortly.
PMH:
Chronic HFpEF
Paroxysmal atrial fibrillation
Newly diagnosed 11/14/2024 and spontaneously converted to SR
Chronic Eliquis OAC
CAD
s/p 2.25 mm and 2.5 mm Medtronic [place] THOMAS to distal to apical LAD 06/12/24
Metastatic prostate cancer
Hyperlipidemia
DM2
Depression/anxiety
Past Medical History
Past Medical History: Other (in HPI)
Past Surgical History: Cardiac (LAD PCI 06/12/24), Orthopedic and Urological (prostatectomy)
Social History
Tobacco: Non-Smoker
Alcohol: None
Drug: None
Personal: Partner
Living: With Family
Family History
Family History: Cancer
Allergies / Home Medications
Allergy/AdvReac Type Severity Reaction Status Date / Time
tetanus toxoid, adsorbed Allergy Hives Verified 11/14/24 16:19
�Medication �Instructions �Recorded �Confirmed �Type
metoprolol succinate 25 mg 25 mg PO BID #60 tabs 06/19/24 03/28/25 Rx
tablet,extended release 24 hr
acetaminophen 500 mg tablet 1,000 mg PO BID mild Pain 07/29/24 03/28/25 History
(Tylenol Extra Strength)
therapeutic multivitamin 1 tab PO DAILY Supplement 07/29/24 03/28/25 History
prochlorperazine maleate 10 mg 10 mg PO Q6HPRN PRN nausea 08/18/24 03/28/25 History
tablet
sertraline 50 mg tablet 50 mg PO QPM depression/anxiety ##0 08/18/24 03/28/25 History
amlodipine 2.5 mg tablet 2.5 mg PO DAILY #0 tabs 08/22/24 03/28/25 Rx
calcium 500 mg (as 2 tab PO BID Supplement 11/14/24 03/28/25 History
carbonate)-vitamin D3 10 mcg (400
unit) tablet (Calcium 500 + D)
hydromorphone 2 mg tablet 2 mg PO Q4HPRN PRN Breakthrough 11/14/24 03/28/25 History
pain
morphine 30 mg immediate release 30 mg PO BID Pain 11/14/24 03/28/25 History
tablet
apixaban 5 mg tablet (Eliquis) 5 mg PO BID #60 tabs 11/25/24 03/28/25 Rx
furosemide 80 mg tablet 80 mg PO BID@0800,1600 #60 tabs 11/25/24 03/28/25 Rx
colestipol 1 gram tablet 1 g PO BID 01/29/25 03/28/25 History
loperamide 2 mg tablet 4 mg PO BID 01/29/25 03/28/25 History
prednisone 10 mg tablet 5 mg PO BID 01/29/25 03/28/25 History
diltiazem HCl 180 mg 180 mg PO DAILY #30 caps 02/04/25 03/28/25 Rx
capsule,extended release 24 hr
empagliflozin 10 mg tablet 10 mg PO DAILY #30 tabs 02/04/25 03/28/25 Rx
(Jardiance)
albuterol sulfate 2.5 mg/3 mL 2.5 mg inhalation R TID 03/28/25 03/28/25 History
(0.083 %) solution for nebulization
atorvastatin 80 mg tablet 80 mg PO QPM 03/28/25 03/28/25 History
insulin aspart U-100 100 unit/mL 6 sliding scale dose SC AC 03/28/25 03/28/25 History
(3 mL) subcutaneous pen
insulin glargine 100 unit/mL (3 14 unit SC QPM 03/28/25 03/28/25 History
mL) subcutaneous pen (Lantus
Solostar U-100 Insulin)
pantoprazole 40 mg tablet,delayed 40 mg PO DAILY 03/28/25 03/28/25 History
release
Review of Systems
-
History Source: Patient
All other systems: Negative unless noted
Physical Exam
Vital Signs
Temp Pulse Resp BP Pulse Ox
98.0 F 105 23 110/70 98
03/28/25 09:48 03/28/25 11:48 03/28/25 11:48 03/28/25 11:48 03/28/25 11:48
Lab Results
03/28/25 10:03
03/28/25 10:03
Troponin I 0.089 ng/ml H* 03/28/25 10:03
Csh-N-Qjtdjqbxzis Pept 5960 pg/ml 03/28/25 10:03
Physical Exam
General: Comfortable and Other (on supp O2. with conversational dyspnea)
HEENT: Normocephalic, Anicteric and Moist Mucous Membranes
Respiratory: Clear and Non Labored Respirations
Cardiac: S1/S2 and Irregular Rhythm
GI: Soft, Non Tender, Normal Bowel Sounds and Distended (mild)
Musculoskeletal: No Clubbing, No Cyanosis and Edema (trace of B/L ankles)
Skin: Warm, Dry and Other (multiple scabs on B/L UE)
Neuro: AO x 3
Impression / Plan
-
Primary Microwave Remote Sensing Scientist: Dr. Carter
Assessment:
Presentation with SOB
Acute on chronic HFpEF
Paroxysmal atrial fibrillation with RVR
Initially diagnosed 11/14/2024 and spontaneously converted to SR
Chronic Eliquis OAC
CAD
s/p 2.25 mm and 2.5 mm Medtronic Prosper THOMAS to distal to apical LAD 06/12/24
Metastatic prostate cancer
Hyperlipidemia, LDL 195
DM2
Prior interstitial pneumonitis, felt to be improved
Depression/anxiety
ECHO 01/30/25: EF 58.7%, no significant valvular disease
Plan:
- Patient presents with shortness of breath and is found to be in acute on chronic heart failure as well as A-fib with RVR
- Recent echo from last admission with preserved EF and no significant valvular disease
- Previously patient has been rate controlled for atrial fibrillation given history of interstitial pneumonitis and concern for ILD, not felt to be candidate for amiodarone. On review of prior pulmonary notes as well as CXR and Chest CT from 01/2025
admission, appears that interstitial pneumonitis felt to be improved/resolved without evidence of ILD. Discussed with pulmonary 03/28/25 and they are okay with initiation of amiodarone for paroxysmal A-fib.
- Will place on Amio 200 mg 3 times daily and follow QTc by EKG. also on sertraline 50 mg every afternoon as outpatient.
- Currently also on IV Cardizem at 5, wean off as able. As outpatient on regimen of diltiazem 180 mg daily and Toprol 25 mg twice daily, resume as able
- Continue outpatient Eliquis
- Continue diuresis with IV Lasix 80 IV twice daily. As outpatient is on 80 mg p.o. twice daily and reports compliance
- CHF education
- chronically on 3L NC at home
- On Jardiance as an outpatient for both diabetes and CHF
- Of note, he is planned to be followed by palliative care moving forward in outpatient setting, however remains a full code
Data Reviewed
-
EKG: Tracing Personally Visualized and interpreted
Radiology: Report Reviewed by me
CT Scan: Report Reviewed by me
Medical Tests (Nuc Med, Echo etc): Report Reviewed by me
Labs: Labs Reviewed by me
Old Records: Reviewed
--- NOTE | 2025-03-28 16:26 | EDRN ---
cardizem gtt was ordered as a continuous drip WITHOUT titration, Cardizem gtt remains at 5mg/hour
--- NOTE | 2025-03-28 16:28 | EDRN ---
the pt reported having a bowel movement after straight cath was performed, this RN cleaned the pt up with soap and wanter and changed covidian pad, this RN noticed redness around the buttock/sacral area, barrier cream was applied, this RN also
noticed that under admission orders there are no straight cath orders placed, per the pt and the pts , the pt straight caths at home, this RN reached out to Dr. Jenise Chaves and awaiting an answer
--- NOTE | 2025-03-28 16:58 | EDRN ---
straight order placed by admitting provider
[2025-03-28 17:41] LABS: Glucose - Point of Care 185 mg/dl (70-99)
[2025-03-28] MEDS: NOVOLOG FLEXPEN-LOW RESISTANCE 1 UNITS SC (19:35)
[2025-03-28] MEDS: LIPITOR 80 MG PO (19:37)
[2025-03-28] MEDS: PACERONE 200 MG PO ×2 (19:38→21:59)
[2025-03-28] MEDS: ZOLOFT 50 MG PO (19:38)
[2025-03-28] MEDS: LANTUS 0.14 UNITS SC (19:38)
[2025-03-28] MEDS: IMODIUM 4 MG PO (20:14)
[2025-03-28] MEDS: TOPROL XL 25 MG PO (20:15)
[2025-03-28] MEDS: TYLENOL 1000 MG PO (20:15)
[2025-03-28] MEDS: ELIQUIS 5 MG PO (20:15)
[2025-03-28] MEDS: MS CONTIN (EXTENDED RELEASE) 30 MG PO (20:19)
[2025-03-28] MEDS: DELTASONE 5 MG PO (20:20)
[2025-03-28 21:31] LABS: Glucose - Point of Care 222 mg/dl (70-99)
[2025-03-29] VITALS (7 sets, daily range): BP systolic 110–166; BP diastolic 59–80; PULSE 85; BMI 28.0
[2025-03-29 07:12] LABS: Glucose - Point of Care 192 mg/dl (70-99)
[2025-03-29 08:02] LABS: Hematocrit 28.4 % (39.0-52.0); Hemoglobin 8.4 g/dL (13.0-18.0); Mean Corp Hgb Conc. 29.6 g/dL (33.0-37.0); Mean Corpuscular Volume 82.8 fL (80.0-94.0); Platelet Count 287 10^3/uL (130-400); Red Cell Dist. Width 25.7 % (11.5-14.5)
[2025-03-29] MEDS: NOVOLOG FLEXPEN-LOW RESISTANCE 1 UNITS SC ×3 (08:30→16:30)
[2025-03-29] MEDS: NOVOLOG FLEXPEN 6 UNITS SC ×3 (08:30→16:31)
[2025-03-29] MEDS: DELTASONE 5 MG PO ×2 (08:31→21:51)
[2025-03-29] MEDS: PACERONE 200 MG PO ×3 (08:31→21:53)
[2025-03-29] MEDS: ELIQUIS 5 MG PO ×2 (08:32→21:51)
[2025-03-29] MEDS: IMODIUM 4 MG PO ×2 (08:32→21:52)
[2025-03-29] MEDS: TYLENOL 1000 MG PO ×2 (08:32→21:53)
[2025-03-29] MEDS: FARXIGA 10 MG PO (08:32)
[2025-03-29] MEDS: TOPROL XL 25 MG PO ×2 (08:32→21:53)
[2025-03-29] MEDS: PROTONIX 40 MG PO (08:32)
[2025-03-29] MEDS: MS CONTIN (EXTENDED RELEASE) 30 MG PO ×2 (08:33→21:53)
[2025-03-29] MEDS: LASIX 80 MG IV ×2 (08:33→16:21)
[2025-03-29 08:54] LABS: Blood Urea Nitrogen 26 mg/dl (9-20); Calcium 8.6 mg/dl (8.4-10.2); Carbon Dioxide 34 mmol/L (22-30); Chloride 99 mmol/L (98-107); Estimated Creatinine Clearance 108 ml/min; Glucose 131 mg/dl (70-99); Magnesium 2.0 mg/dl (1.6-2.3); Potassium 3.7 mmol/L (3.5-5.1); Sodium 139 mmol/L (135-145); eGFR > 60.00
--- NOTE | 2025-03-29 10:12 | W.PN.HOSP.TC ---
Today's Communication/Plan
-
see A/P
Assessment / Plan
Assessment / Plan
HPI: 84-year-old male p/w acute on chronic shortness of breath and palpitation.
He is compliant with his medications and denies any new medications.
In the ED, he was found to be in A fib RVR with mild CHF.
A/P:
# Paroxysmal A fib with RVR POA
Started Cardizem drip in ED, cont for now
Cont SENIOR CONTROL SYSTEMS ENGINEER Toprol
Added Amiodarone
Cont SENIOR CONTROL SYSTEMS ENGINEER Eliquis
Card on board, to consider cardioversion if pt does not convert after adequate amiodarone loading
# SOB due to acute on chronic HFpEF
# Mild transaminitis likely 2/2 hepatic congestion
BNP 5900 on admission
Echo from 01/2025 showed EF 58%, No significant valve disease. Compared to prior echo from October 2024, no significant change.
Admission CXR showed Mild pulmonary vascular congestion. Widespread osseous metastatic disease.
CT PE was neg for PE, but confirmed mild pulmonary edema, Small bilateral pleural effusions. Bibasilar airspace consolidation may also be present. Also widespread osteoblastic metastasis. Chronic compression fracture of the T3 vertebral body.
Cont IV Lasix 80 mg BID,
Follow daily weight
Cont SENIOR CONTROL SYSTEMS ENGINEER BB
# Chronic anemia
Monitor Hgb
# Chronic hypoxic respiratory failure on 3L home O2
# h/o ILD
followed by Dr. Rowley as an outpatient.
Cont SENIOR CONTROL SYSTEMS ENGINEER prednisone 5 mg daily
# Chronic urinary retention
patient does self-catheterization at home. Ballard catheterization Q6H during hospital stay
# CAD with history of stents in May 2024
Continue statin, beta-yaneli.
# History of rheumatic heart disease
# Essential hypertension
continue SENIOR CONTROL SYSTEMS ENGINEER Norvasc and Toprol with holding parameter
# Hyperlipidemia
continue atorvastatin.
# Metastatic prostate carcinoma s/p Radical prostatectomy 2002
# History of radiation treatment
Off chemo
Follows up with Dr. Mendez and Dr. Patterson
There is talk of palliative care moving forward in outpatient setting, however pt remains a full code now
# Chronic pain syndrome / chronic opioid dependence
continue SENIOR CONTROL SYSTEMS ENGINEER Dilaudid, MS Contin, prednisone.
# Depression
continue sertraline
# Obesity due to excess calories
# IDDM
cont SENIOR CONTROL SYSTEMS ENGINEER insulin, Jardiance
ISS coverage
DVT prophylaxis- Eliquis
Full code
Dispo: PT OT eval
Anticipated Discharge: > 48 hours
Subjective/Interval History
-
Date of Service: March 29, 2025
Objective Data
-
Labs:
Laboratory Results
03/29/25
07:18
WBC 8.8
Hgb 8.4 L
Hct 28.4 L
Plt Count 287
Sodium 139
Potassium 3.7
Chloride 99
Carbon Dioxide 34 H
BUN 26 H
Creatinine 0.6 L
Glucose 131 H
Calcium 8.6
Vital Signs:
Vital Signs
Temp Pulse Resp BP Pulse Ox
36.4 C 95 20 130/65 100
03/29/25 07:00 03/29/25 08:31 03/29/25 07:00 03/29/25 08:31 03/29/25 07:00
I&O
03/28/25 03/29/25 03/30/25
06:59 06:59 06:59
Intake Total 480 / 480
Output Total 2350 / 2350
Balance -1869 / -1869
Review of Systems
-
History Source: Patient
Respiratory: Reports Trouble Breathing
Physical Exam
-
General: Well Developed, Well Nourished, Comfortable, Respiratory Distress (chronic), Conversant and Appears Chronically Ill
HEENT: Nose Appears Normal, Ears Appear Normal and Oxygen (2L NC)
Respiratory: Clear to Auscultation and Non Labored Respirations; Negative Accessory Resp Muscle Use
Cardiac: Regular Rhythm and S1/S2
GI: Soft, Nontender and Nondistended
Musculoskeletal: No Clubbing and No Cyanosis
Skin: Warm and Dry
Neuro: Awake and Alert
Psych: Calm and Intact Judgement/Insight
Data Reviewed
-
CT Scan: Report Reviewed by me
Labs: Labs Reviewed by me
--- NOTE | 2025-03-29 10:17 | WOUNDNOTE ---
[facility] RN note: Patient admitted with a fib, CHF. Patient lives with family.
See H&P for complete history.
PMH: chronic SOB on home o2, CHF, CAD with stent, rheumatic heart disease, metastatic prostate cancer s/p radical prostatectomy 2002, off chemo, bilateral inguinal hernia repair, bilateral THR, urinary retention, straight cath's, HTN, IDDM, obesity.
Wound Location and type/assessment: Patient admitted with: L coccyx/buttocks stage 2 pressure injury. Yary/scrotal, penis tip MASD. Blanchable persistent red heels.
Appetite: on low cholesterol diet.
Pressure redistribution devices in place: [employer] Accumax. Confirmed with RN Will can apply a static air overlay.
Plan: Yary care given. Sacral shaped silicone border foam applied to sacrum. Calazime to perianal skin. Protective foam applied to heels. Static air overlay applied and patient turned to L semi side lying position with help from PCT Vaishali and
Ne. Heels off bed with air chair cushion. Foam turning wedge and soft heel relief obtained from SPD.
Will confirm orders with Dr. Chaves and updated RN Will.
Care plan to be updated and will follow as needed.
Recommend follow up at wound care center upon discharge.
[2025-03-29 10:37] LABS: Glycohemoglobin (HgbA1c) 7.4 % (4.0-5.6)
--- NOTE | 2025-03-29 10:55 | WOUNDNOTE ---
[facility] RN note: Patient stated he has a hospital bed with a gel overlay at home and that he is current with VN. Foot Waffle boot applied to RLE and TruVue lite boot applied to LLE. Foam turning wedge left in room. Dr. Chaves applied local wound care, air
overlay or air mattress and soft heel relief boots as tolerated.
--- NOTE | 2025-03-29 11:27 | CM ---
Received call from patient's daughter in law, Sean, to confirm information and update CM on d/c plan potentially. Sean shared that patient's significant other will no longer be the resident manager as it is 'too much' and that patient will be moving back
with her and patient's son in [place]. Sean confirmed that patient has aides through [facility] and PT through [facility]. Sean stated some DME has been ordered through [employer] which she will re-route to her home. Patient currently receives O2
through [facility], Sean stated she will give them a call to get his refills sent to her home. Confirmed patient has a portable device as well. Sean stated patient will likely need an ambulance home, will assess medical need closer to d/c.
Update to admissions on address patient will d/c to: [address], [place] [address]
Sean also asking for patient's SO to be changed to secondary contact instead of primary and list herself as the primary contact. Updated admissions
PT eval ordered, will watch for therapy needs
Plan: Home w/ son and DIL. Continue w/ [facility] and [facility]
[2025-03-29 11:47] LABS: Glucose - Point of Care 171 mg/dl (70-99)
--- NOTE | 2025-03-29 11:53 | W.PN.CARDCBS ---
Addendum entered and electronically signed by Andrews Vasquez MD 03/29/25 18:19:
84-year-old man with a history of HFpEF and paroxysmal atrial fibrillation first diagnosed in October 2024, history of CAD with apical LAD stent May 2024, metastatic prostate cancer, now admitted with recurrent acute on chronic HFpEF with A-fib and
rapid ventricular response. He has spontaneously converted to normal sinus rhythm.
Meds: Reviewed
118/68, pulse 85, weight is 98.685 kg, no distress, still volume overloaded, rhonchi with diminished breath sounds in bases regular rate and rhythm, no obvious murmurs JVD hard to assess, trace to 1+ edema,
Hemoglobin is 8.4, white count is 8.8, platelets are 287, BUN and creatinine are 26 and 0.6, potassium is 3.7
Assessment:
Presentation with SOB
Acute on chronic HFpEF
Paroxysmal atrial fibrillation with RVR
Initially diagnosed 11/14/2024 and spontaneously converted to SRChronic Eliquis OAC
CAD
s/p 2.25 mm and 2.5 mm Medtronic Prosper THOMAS to distal to apical LAD 06/12/24Metastatic prostate cancer
Hyperlipidemia, LDL 195
DM2
Prior interstitial pneumonitis, felt to be improved
Depression/anxiety
Plan:
He converted to sinus rhythm with the addition of amiodarone. Okay to stop IV diltiazem. Continue amiodarone 200 mg 3 times daily
He is still volume overloaded, continue IV furosemide 80 mg twice daily.
Add spironolactone 12.5 mg daily.
Continue SGLT2 antagonist
Original Note:
Today's Communication / Plan
-
back in NSR on Amiodarone
cont diuresis
Impression / Plan
-
Primary Tin Plater: Dr. Carter
Assessment:
Presentation with SOB
Acute on chronic HFpEF
Paroxysmal atrial fibrillation with RVR
Initially diagnosed 11/14/2024 and spontaneously converted to SR
Chronic Eliquis OAC
CAD
s/p 2.25 mm and 2.5 mm Medtronic Prosper THOMAS to distal to apical LAD 06/12/24
Metastatic prostate cancer
Hyperlipidemia, LDL 195
DM2
Prior interstitial pneumonitis, felt to be improved
Depression/anxiety
ECHO 01/30/25: EF 58.7%, no significant valvular disease
Plan:
- presented w/ SOB and is found to be in acute on chronic heart failure as well as A-fib with RVR. ProBNP 5960 on admit
- Recent echo 01/2025 with preserved EF and no significant valvular disease
- Previously patient has been rate controlled for atrial fibrillation given history of interstitial pneumonitis and concern for ILD, not felt to be candidate for amiodarone. On review of prior pulmonary notes as well as CXR and Chest CT from 01/2025
admission, appears that interstitial pneumonitis felt to be improved/resolved without evidence of ILD. Discussed with pulmonary 03/28/25 and they are okay with initiation of amiodarone for paroxysmal A-fib.
- started on Amio 200 mg 3 times daily 03/28/2025 and follow QTc by EKG. also on sertraline 50 mg every afternoon as outpatient.
-converted to NSR 03/28. EKG today NSR QTc 512 msec-stable
- off IV Cardizem.
-on outpt Toprol 25 mg bid
- off outpt diltiazem 180 mg daily-monitor HRs, resume if needed for rate control
-telem reviewed: NSR 70s, BP 110/
- Continue outpatient Eliquis
- Continue diuresis with IV Lasix 80 IV twice daily. As outpatient is on 80 mg p.o. twice daily and reports compliance
-wt down 7 lbs overnight
-creat 0.6
-still with SOB
- CHF education
-OOB
- chronically on 3L NC at home and is on 3L now
- On Jardiance as an outpatient for both diabetes and CHF
- Of note, he is planned to be followed by palliative care moving forward in outpatient setting, however remains a full code
Progress Note - Tin Plater
Subjective
Date of Service: March 29, 2025
converted back to NSR
Objective
Labs:
03/29/25 07:18
03/29/25 07:18
Labs
Hgb 8.4 g/dL (13.0-18.0) L 03/29/25 07:18
Hct 28.4 % (39.0-52.0) L 03/29/25 07:18
Plt Count 287 10^3/uL (130-400) 03/29/25 07:18
Sodium 139 mmol/L (135-145) 03/29/25 07:18
Potassium 3.7 mmol/L (3.5-5.1) 03/29/25 07:18
BUN 26 mg/dl (9-20) H 03/29/25 07:18
Creatinine 0.6 mg/dL (0.7-1.3) L 03/29/25 07:18
Glucose 131 mg/dl (70-99) H 03/29/25 07:18
Troponins
03/28/25
10:03
Troponin I 0.089 H*
Vital Signs and I&O:
Vital Signs
Temp Pulse Resp BP Pulse Ox
97.7 F 83 18 110/60 98
03/29/25 11:05 03/29/25 11:05 03/29/25 11:05 03/29/25 11:05 03/29/25 11:05
Vital Signs
Temp Pulse Resp BP Pulse Ox
97.7 F 83 18 110/60 98
03/29/25 11:05 03/29/25 11:05 03/29/25 11:05 03/29/25 11:05 03/29/25 11:05
Intake & Output
03/27/25 03/28/25 03/29/25 03/30/25
06:59 06:59 06:59 06:59
Intake Total 480 / 480
Output Total 2349 / 2349
Balance -1869 / -1869
Physical Exam
Physical Exam
GEN: No distress, awake, Ox3
HEENT: supple, anicteric, mmm
LUNGS: CTA, no wheezes/rales
CV: Reg, S1/S2, no murmur
ABD: soft, BS+, NT/ND
EXT: tr LE edema
NEURO: Gross non-focal
SKIN: No rash
[2025-03-29] MEDS: LIPITOR 80 MG PO (16:22)
[2025-03-29] MEDS: ZOLOFT 50 MG PO (16:22)
[2025-03-29 16:28] LABS: Glucose - Point of Care 165 mg/dl (70-99)
[2025-03-29] MEDS: LANTUS 0.14 UNITS SC (17:21)
[2025-03-29 21:24] LABS: Glucose - Point of Care 336 mg/dl (70-99)
[2025-03-29] MEDS: DESENEX/MITRAZOL/ZEASORB 1 APPLIC TOPICAL (21:51)
[2025-03-29] MEDS: NOVOLOG FLEXPEN 4 UNITS SC (22:30)
[2025-03-30 03:28] VITALS: BP 127/71
[2025-03-30 06:00] VITALS: BMI 28.3
[2025-03-30 06:55] LABS: Hematocrit 29.6 % (39.0-52.0); Hemoglobin 8.7 g/dL (13.0-18.0); Mean Corp Hgb Conc. 29.4 g/dL (33.0-37.0); Mean Corpuscular Volume 82.7 fL (80.0-94.0); Platelet Count 293 10^3/uL (130-400); Red Cell Dist. Width 25.0 % (11.5-14.5)
[2025-03-30 07:00] VITALS: BP 133/67
[2025-03-30 07:11] LABS: ALT (SGPT) 40 U/L (0-50); AST (SGOT) 85 U/L (17-59); Albumin 2.9 g/dl (3.5-5.0); Alkaline Phosphatase 856 U/L (38-126); Blood Urea Nitrogen 26 mg/dl (9-20); Calcium 8.4 mg/dl (8.4-10.2); Carbon Dioxide 33 mmol/L (22-30); Chloride 99 mmol/L (98-107); Estimated Creatinine Clearance 108 ml/min; Glucose 129 mg/dl (70-99); Magnesium 2.0 mg/dl (1.6-2.3); Potassium 3.5 mmol/L (3.5-5.1); Sodium 138 mmol/L (135-145); Total Protein 5.8 g/dl (6.3-8.2); eGFR > 60.00
[2025-03-30 08:29] LABS: Glucose - Point of Care 133 mg/dl (70-99)
[2025-03-30] MEDS: NOVOLOG FLEXPEN-LOW RESISTANCE SC (09:35)
[2025-03-30] MEDS: LASIX 80 MG IV ×2 (10:04→17:37)
[2025-03-30] MEDS: MS CONTIN (EXTENDED RELEASE) 30 MG PO ×2 (10:06→20:48)
[2025-03-30] MEDS: FARXIGA 10 MG PO (10:06)
[2025-03-30] MEDS: TOPROL XL 25 MG PO ×2 (10:06→20:49)
[2025-03-30] MEDS: PACERONE 200 MG PO ×2 (10:06→20:48)
[2025-03-30] MEDS: ELIQUIS 5 MG PO ×2 (10:06→20:48)
[2025-03-30] MEDS: ALDACTONE 12.5 MG PO (10:06)
[2025-03-30] MEDS: PROTONIX 40 MG PO (10:06)
[2025-03-30] MEDS: TYLENOL 1000 MG PO ×2 (10:07→20:49)
[2025-03-30] MEDS: NOVOLOG FLEXPEN 6 UNITS SC ×3 (10:07→17:38)
[2025-03-30] MEDS: IMODIUM 4 MG PO ×2 (10:07→20:48)
[2025-03-30] MEDS: DELTASONE 5 MG PO ×2 (10:07→20:47)
[2025-03-30 11:25] LABS: Glucose - Point of Care 155 mg/dl (70-99)
--- NOTE | 2025-03-30 12:41 | W.PN.HOSP.TC ---
Today's Communication/Plan
-
Continue diuresis
Assessment / Plan
Assessment / Plan
84-year-old male p/w acute on chronic shortness of breath and palpitation.
He is compliant with his medications and denies any new medications.
In the ED, he was found to be in A fib RVR with mild CHF.
A/P:
1. Paroxysmal A fib with RVR POA
Started Cardizem drip in ED, then converter, now on po amiodarone
Cont MILK BOTTLER Toprol
Added Amiodarone
Cont MILK BOTTLER Eliquis
Card on board. Their recs:
'- off outpt diltiazem 180 mg daily-monitor HRs, resume if needed for rate control
- Continue outpatient Eliquis
- Continue diuresis with IV Lasix 80 IV twice daily.
As outpatient is on 80 mg p.o. twice daily and reports compliance
- CHF education
-OOB
(Of note, he is planned to be followed by palliative care moving forward in outpatient setting, however remains a full code)'
2. SOB due to acute on chronic HFpEF - see above
3. Mild transaminitis likely 2/2 hepatic congestion
4. SOB - multifactorial with Chronic hypoxic respiratory failure on 3L home O2
BNP 5900 on admission
Echo from 01/2025 showed
EF 58%, No significant valve disease.
Compared to prior echo from October 2024, no significant change.
Admission CXR showed
Mild pulmonary vascular congestion.
Widespread osseous metastatic disease.
CT PE
neg for PE, but confirmed mild pulmonary edema,
Small bilateral pleural effusions.
Bibasilar airspace consolidation may also be present.
Also widespread osteoblastic metastasis.
Chronic compression fracture of the T3 vertebral body.
Cont IV Lasix 80 mg BID
Follow daily weight
Cont MILK BOTTLER BB
5. Chronic anemia
Monitor Hgb
6. h/o ILD
followed by Dr. Rowley as an outpatient.
Cont MILK BOTTLER prednisone 5 mg daily
7. Chronic urinary retention
patient does self-catheterization at home.
Ballard catheterization Q6H during hospital stay
8. CAD with history of stents in May 2024
Continue statin, beta-yaneli.
9. History of rheumatic heart disease
10. Essential hypertension
continue MILK BOTTLER Norvasc and Toprol with holding parameter
11. Hyperlipidemia
continue atorvastatin.
12. Metastatic prostate carcinoma s/p Radical prostatectomy 2002
13. History of radiation treatment
Off chemo
Follows up with Dr. Mendez and Dr. Patterson
There is talk of palliative care moving forward in outpatient setting, however pt remains a full code now
14. Chronic pain syndrome / chronic opioid dependence
continue MILK BOTTLER Dilaudid, MS Contin, prednisone.
15. Depression
continue sertraline
16. Obesity due to excess calories - current BMI 28
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
cont MILK BOTTLER insulin, Jardiance
ISS coverage
DVT prophylaxis- Eliquis
Full code
Dispo: PT OT eval
Anticipated Discharge: > 48 hours
Subjective/Interval History
-
Date of Service: March 30, 2025
Feels OK when not moving
Objective Data
-
Labs:
Laboratory Results
03/30/25 03/30/25
06:00 06:01
WBC 8.2
Hgb 8.7 L
Hct 29.6 L
Plt Count 293
Sodium 138
Potassium 3.5
Chloride 99
Carbon Dioxide 33 H
BUN 26 H
Creatinine 0.6 L
Glucose 129 H
Calcium 8.4
Total Bilirubin 0.7
AST 85 H
ALT 40
Alkaline Phosphatase 856 H
Vital Signs:
Vital Signs
Temp Pulse Resp BP Pulse Ox
97.8 F 87 20 133/67 96
03/30/25 07:00 03/30/25 07:00 03/30/25 07:00 03/30/25 07:00 03/30/25 07:00
I&O
03/29/25 03/30/25 03/31/25
06:59 06:59 06:59
Intake Total 480 / 480 1620 / 1620
Output Total 2350 / 2350 2140 / 2140
Balance -1870 / -1870 -520 / -520
Review of Systems
-
History Source: Patient
All other systems: Reviewed and negative
Physical Exam
-
General: Well Developed, Well Nourished, No Apparent Distress and Comfortable
HEENT: Normocephalic, Atraumatic, Moist Mucous Membranes, Nose Appears Normal and Ears Appear Normal
Respiratory: Decreased Breath Sounds
Cardiac: Regular Rhythm and S1/S2
GI: Soft and Nontender
Musculoskeletal: No Clubbing and No Cyanosis
Skin: Warm and Dry
Neuro: Awake, Alert and Oriented
Psych: Calm
Data Reviewed
-
Labs: Labs Reviewed by me
[2025-03-30 12:43] VITALS: BP 106/47
--- NOTE | 2025-03-30 12:45 | W.PN.CARDCBS ---
Today's Communication / Plan
-
Will get more aggressive with diuresis, adding 5 mg of Zaroxolyn as a one-time dose tonight prior to his next scheduled dose of IV Lasix.
Impression / Plan
-
Primary Community Education Specialist: Dr. Carter
Assessment:
Presentation with SOB
Acute on chronic HFpEF
Paroxysmal atrial fibrillation with RVR
Initially diagnosed 11/14/2024 and spontaneously converted to SR
Chronic Eliquis OAC
CAD
s/p 2.25 mm and 2.5 mm [employer] Cherry THOMAS to distal to apical LAD 06/12/24
Metastatic prostate cancer
Hyperlipidemia, LDL 195
DM2
Prior interstitial pneumonitis, felt to be improved
Depression/anxiety
ECHO 01/30/25: EF 58.7%, no significant valvular disease
Plan:
Admitted with HFpEF, acute on chronic as well as A-fib with RVR. ProBNP 5960
Previously patient has been rate controlled for atrial fibrillation given history of interstitial pneumonitis and concern for ILD there has been some hesitation for amiodarone. On review of prior pulmonary notes as well as CXR and Chest CT from
01/2025 admission, appears that interstitial pneumonitis felt to be improved/resolved without evidence of ILD. Discussed with pulmonary 03/28/25 and they are okay with initiation of amiodarone for paroxysmal A-fib.
started on Amio 200 mg 3 times daily 03/28/2025 and follow QTc by EKG. also on sertraline 50 mg every afternoon as outpatient.
converted to NSR 03/28. EKG 03/29 NSR QTc 512 msec-stable
Will reduce amio to 200 mg BID
Maintain outpt Toprol 25 mg bid
Maintain Jardiance (on for both heart failure and diabetes)
Maintain spironolactone
Continue outpatient Eliquis
Has not diuresed very aggressively on IV Lasix 80 IV twice daily. As outpatient is on 80 mg p.o. twice daily and reports compliance
We will give a dose of Zaroxolyn 5 mg with this evening's dose of Lasix and reassess diuretic response as we follow weights and fluid balance closely
Will give oral potassium today
- CHF education
- OOB
- chronically on 3L NC at home and is on 3L now
- Of note, he is planned to be followed by palliative care moving forward in outpatient setting, however remains a full code
Total time spent today was 51 minutes in preparing to see the patient, seeing the patient and coordination of care. This included review of recent laboratory evaluations, cardiact testing, imaging studies, primary care rtecords, specialty
consultations, hospital records, as well as personally interviewing and examining the patient, which included discussion of their tests, review/ordering medications, and communicating with other healthcare professionals and also treatment planning
as well as counseling.
Total time does not include separately billed tests performed on this date of service.
Progress Note - Community Education Specialist
Subjective
Date of Service: March 30, 2025
He describes that he has not significantly improved regarding his shortness of breath. No chest pain.
Objective
Labs:
03/30/25 06:01
03/30/25 06:00
Labs
Hgb 8.7 g/dL (13.0-18.0) L 03/30/25 06:01
Hct 29.6 % (39.0-52.0) L 03/30/25 06:01
Plt Count 293 10^3/uL (130-400) 03/30/25 06:01
Sodium 138 mmol/L (135-145) 03/30/25 06:00
Potassium 3.5 mmol/L (3.5-5.1) 03/30/25 06:00
BUN 26 mg/dl (9-20) H 03/30/25 06:00
Creatinine 0.6 mg/dL (0.7-1.3) L 03/30/25 06:00
Glucose 129 mg/dl (70-99) H 03/30/25 06:00
Troponins
03/28/25
10:03
Troponin I 0.089 H*
Vital Signs and I&O:
Vital Signs
Temp Pulse Resp BP Pulse Ox
97.6 F 92 16 106/47 98
03/30/25 12:43 03/30/25 12:43 03/30/25 12:43 03/30/25 12:43 03/30/25 12:43
Vital Signs
Temp Pulse Resp BP Pulse Ox
97.6 F 92 16 106/47 98
03/30/25 12:43 03/30/25 12:43 03/30/25 12:43 03/30/25 12:43 03/30/25 12:43
Intake & Output
03/28/25 03/29/25 03/30/25 03/31/25
06:59 06:59 06:59 06:59
Intake Total 480 / 480 1620 / 1620
Output Total 2350 / 2350 2140 / 2140
Balance -1870 / -1870 -520 / -520
Physical Exam
Physical Exam
GEN: No distress, awake, Ox3
HEENT: supple, anicteric, mmm
LUNGS: CTA, no wheezes/rales
CV: Reg, S1/S2, no murmur
ABD: soft, BS+, NT/ND
EXT: tr LE edema
NEURO: Gross non-focal
SKIN: No rash
[2025-03-30] MEDS: KCL 40 MEQ PO (14:04)
[2025-03-30] MEDS: NOVOLOG FLEXPEN-LOW RESISTANCE 1 UNITS SC ×2 (14:05→17:38)
[2025-03-30] MEDS: DESENEX/MITRAZOL/ZEASORB 1 APPLIC TOPICAL ×2 (14:05→20:50)
--- NOTE | 2025-03-30 14:19 | CON.ONC ---
Consultation
-
Date Consultation Requested: 03/29/25
Date Consultation Performed: 03/30/25
Requesting Provider: darryn
Performing Provider: ines
Reason for Consultation: hx of metastatic prostate cancer
Impression
Impression
- paroxysmal a-fib w/ RVR
- volume overload
- hx of metastatic prostate cancer
- bone metastases with cancer associated pain
- pneumonitis hx on chronic O2
Plan
Plan
- sujit unfortunately has had multiple hospital admissions over past 6-9 months for respiratory compromise initially thought to be due to taxane pneumonitis for which he completed steroids then new onset a-fib with CHF exacerbations which he is again
admitted for today. Apprec cardiology in-put. converted to sinus with amio.
- he has progressed on several lines of therapy for his prostate cancer and due to decline in PS has not been candidate for new lines of therapy. We have discussed several times transitioning to hospice however pt has declined and does again today.
Arrangements are being made at home with plan for palliative services and transitioning to hospice if no clinical improvement which is looking more and more bleach. he is aware no further cancer directed therapies is planned.
- persistent moderate anemia likely related to bone metastases, other chronic comorbidities. check iron studies, retic. ideally would optimize as this may help reduce CHF events however pt unable to get into office for epo agonists or even routine
lab monitoring. transfuse for hgb < 7.5 g/dl with active cardiac symptoms.
- pt with ongoing O2 needs despite resolution of pneumonitis, when in NSR w/p volume overload. aspiration assessment ordered outpt but family unable to get him to hospital. placed consult to [facility].
will continue to follow.
Patient History
History of Present Illness
sujit is a 84 yo M with oncological hx of metastatic prostate cancer off tx since September 2024 due to multiple admissions for pneumonitis -> afib with RVR with CHF exacerbations who was readmitted with recurrent a-fib with RVR and volume overload. he
was only recently discharged from SNF to home ~ 1 week ago after extended stay following last hospital stay. He felt he had improved somewhat at SNF however still weak. At our last visit in office remained on supplemental O2 and with JORGENSEN despite in
NSR, no volume overload. His family expressed concern for aspiration as possible cause for pneumonitis ongoing O2 needs. i ordered swallow study however family unable to get pt to hospital for this. He has had persistent anemia, likely related to
inflammation, diffuse bone metastases. He continues on morphine 30 mg BID with diluadid 2 mg prn for bone pain which has been stable. pt was given dose of amio on admission and converted to sinus rhythm. he is receiving IV lasix for diuresis. denies
fevers, productive cough, abdominal pain. appetite as been good.
Patient Medication
�Medication �Instructions �Recorded �Confirmed �Last Taken �Type
metoprolol succinate 25 mg 25 mg PO BID #60 tabs 06/19/24 03/28/25 03/28/25 Rx
tablet,extended release 24 hr
acetaminophen 500 mg tablet 1,000 mg PO BID mild Pain 07/29/24 03/28/25 03/28/25 History
(Tylenol Extra Strength)
therapeutic multivitamin 1 tab PO DAILY Supplement 07/29/24 03/28/25 03/28/25 History
prochlorperazine maleate 10 mg 10 mg PO Q6HPRN PRN nausea 08/18/24 03/28/25 Unknown History
tablet
sertraline 50 mg tablet 50 mg PO QPM depression/anxiety ##0 08/18/24 03/28/25 03/27/25 History
amlodipine 2.5 mg tablet 2.5 mg PO DAILY #0 tabs 08/22/24 03/28/25 03/28/25 Rx
calcium 500 mg (as 2 tab PO BID Supplement 11/14/24 03/28/25 03/28/25 History
carbonate)-vitamin D3 10 mcg (400
unit) tablet (Calcium 500 + D)
hydromorphone 2 mg tablet 2 mg PO Q4HPRN PRN Breakthrough 11/14/24 03/28/25 Unknown History
pain
morphine 30 mg immediate release 30 mg PO BID Pain 11/14/24 03/28/25 03/28/25 History
tablet
apixaban 5 mg tablet (Eliquis) 5 mg PO BID #60 tabs 11/25/24 03/28/25 03/28/25 Rx
furosemide 80 mg tablet 80 mg PO BID@0800,1600 #60 tabs 11/25/24 03/28/25 03/28/25 Rx
colestipol 1 gram tablet 1 g PO BID Antilipemic Agent, 01/29/25 03/28/25 03/28/25 History
loperamide 2 mg tablet 4 mg PO BID 01/29/25 03/28/25 03/28/25 History
prednisone 10 mg tablet 5 mg PO BID 01/29/25 03/28/25 03/28/25 History
empagliflozin 10 mg tablet 10 mg PO DAILY #30 tabs 02/04/25 03/28/25 03/28/25 Rx
(Jardiance)
albuterol sulfate 2.5 mg/3 mL 2.5 mg inhalation R TID 03/28/25 03/28/25 03/28/25 History
(0.083 %) solution for nebulization Lung/Breathing Issues
atorvastatin 80 mg tablet 80 mg PO QPM High Cholesterol 03/28/25 03/28/25 03/27/25 History
insulin aspart U-100 100 unit/mL 6 sliding scale dose SC AC 03/28/25 03/28/25 03/28/25 History
(3 mL) subcutaneous pen
insulin glargine 100 unit/mL (3 14 unit SC QPM 03/28/25 03/28/25 03/27/25 History
mL) subcutaneous pen (Lantus
Solostar U-100 Insulin)
pantoprazole 40 mg tablet,delayed 40 mg PO DAILY 03/28/25 03/28/25 03/28/25 History
release
diltiazem HCl 180 mg 180 mg PO DAILY Heart 03/29/25 03/28/25 03/28/25 History
capsule,extended release 24 hr Disease/Condition
Active Medications
Generic Name Dose Route Start Last Admin
Trade Name Freq PRN Reason Stop Dose Admin
Acetaminophen 1,000 mg 03/28/25 20:00 03/30/25 10:07
Acetaminophen 500 Mg Tablet PO 04/25/25 19:59 1,000 mg
BID DINAH Administration
Amiodarone HCl 200 mg 03/30/25 20:00
Amiodarone 200 Mg Tablet PO 04/27/25 19:59
BID DINAH
Apixaban 5 mg 03/28/25 20:00 03/30/25 10:06
Apixaban (Eliquis) 5 Mg Tablet PO 04/25/25 19:59 5 mg
BID DINAH Administration
Atorvastatin Calcium 80 mg 03/28/25 18:00 03/29/25 16:22
Atorvastatin (Lipitor) 80 Mg Tablet PO 04/25/25 17:59 80 mg
QPM DINAH Administration
Bisacodyl 10 mg 03/28/25 17:24
Bisacodyl 10 Mg Rectal Suppository RECTAL 04/25/25 17:23
[id number] PRN
constipation
Dapagliflozin 10 mg 03/29/25 08:00 03/30/25 10:06
Dapagliflozin (Farxiga) 10 Mg Tablet PO 04/26/25 07:59 10 mg
DAILY DINAH Administration
Dextrose 12.5 grams 03/28/25 17:24
Dextrose 50% (0.5 Grams/Ml) 50 Ml Syringe IV 04/25/25 17:23
[id number] PRN
hypoglycemia
Protocol
Furosemide 80 mg 03/28/25 18:00 03/30/25 10:04
Furosemide 100 Mg (10 Mg/Ml) 10 Ml Vial IV 04/25/25 17:59 80 mg
BID AT 0800,1600 DINAH Administration
Glucagon 1 mg 03/28/25 17:24
Glucagon 1 Mg Vial IM 04/25/25 17:23
PRN PRN
hypoglycemia
Protocol
Hydromorphone HCl 2 mg 03/28/25 18:00
Hydromorphone 2 Mg Tablet PO 04/11/25 17:59
Q4HPRN PRN
Breakthrough pain
Insulin Glargine 14 units/ 0.14 mls @ 0 mls/hr 03/28/25 19:00 03/29/25 17:21
Device SC 04/25/25 18:59 0.14 mls
QPM DINAH Administration
As Directed
Insulin Aspart 6 units 03/29/25 07:30 03/30/25 14:05
Insulin Aspart (Novolog) 100 Units/Ml 3 Ml Flexpen SC 04/26/25 07:29 6 units
AC DINAH Administration
Insulin Aspart 0 units 03/28/25 17:24 03/30/25 14:05
Insulin Aspart Low Resistance 300 Units/3 Ml Pen.Injctr SC 04/25/25 17:23 1 units
AC DINAH Administration
Protocol
Loperamide HCl 4 mg 03/28/25 20:00 03/30/25 10:07
Loperamide 2 Mg Capsule PO 04/25/25 19:59 4 mg
BID DINAH Administration
Metoprolol Succinate 25 mg 03/28/25 20:00 03/30/25 10:06
Metoprolol 25 Mg Extended Release Tablet PO 04/25/25 19:59 25 mg
BID DINAH Administration
Miconazole Nitrate 0 applic 03/29/25 20:00 03/30/25 14:05
Miconazole Powder Bottle TOPICAL 04/26/25 19:59 1 applic
BID DINAH Administration
Morphine Sulfate 30 mg 03/28/25 20:00 03/30/25 10:06
Morphine 30 Mg Extended Release Tablet PO 04/11/25 19:59 30 mg
BID DINAH Administration
Colestipol 1 Gram 0 grams 03/28/25 20:00
Tablet Po Bid PO 04/25/25 19:59
BID DINAH
Pantoprazole Sodium 40 mg 03/29/25 08:00 03/30/25 10:06
Pantoprazole 40 Mg Delayed Release Tablet PO 04/26/25 07:59 40 mg
DAILY DINAH Administration
Polyethylene Glycol 17 grams 03/28/25 17:24
Polyethylene Glycol Powder 17 Grams Packet PO 04/25/25 17:23
DAILYPRN PRN
constipation
Prednisone 5 mg 03/28/25 20:00 03/30/25 10:07
Prednisone 5 Mg Tablet PO 04/25/25 19:59 5 mg
BID DINHA Administration
Prochlorperazine Maleate 10 mg 03/28/25 17:24
Prochlorperazine 10 Mg Tablet PO 04/25/25 17:23
Q6HPRN PRN
nausea
Senna/Docusate Sodium 1 tablet 03/28/25 17:24
Docusate W/Senna (Yary-Colace) Tablet PO 04/25/25 17:23
BIDPRN PRN
constipation
Sertraline HCl 50 mg 03/28/25 18:00 03/29/25 16:22
Sertraline 50 Mg Tablet PO 04/25/25 17:59 50 mg
QPM DINAH Administration
Sodium Chloride 0 flush 03/28/25 18:00
Sodium Chloride 0.9% (Flush) Syringe IV 04/25/25 17:59
PER PROTOCOL DINAH
Spironolactone 12.5 mg 03/30/25 08:00 03/30/25 10:06
Spironolactone 12.5 Mg Dose (1/2 Of 25 Mg Tablet) PO 04/27/25 07:59 12.5 mg
DAILY DINAH Administration
Review of Systems
-
History Source: Patient
Constitutional: Reports Fatigue and Weakness
Respiratory: Reports Trouble Breathing; Denies Cough or Pleurisy
Cardiac: Reports Palpitations; Denies Chest Pain
GI: Reports Bloated; Denies Abdominal Pain or Bloody Stools
Musculoskeletal: Reports Muscle Pain and Arthralgias
Neuro: Reports Weakness; Denies Dizzy, Headache or Lightheadedness
Hematologic/Lymphatic: Denies Bleeding
Physical Exam
-
General: No Apparent Distress, Conversant and Appears Chronically Ill
HEENT: Negative Jaundice
Cardiology: Normal Sinus Rhythm
Pulmonary: Clear; Negative Wheezes
Extremities: Edema (2+ pitting edema )
Neurology: Non Focal and No Lateralizing Symptoms
Labs
Lab Results
WBC 8.2 10^3/uL (4.8-10.8) 03/30/25 06:01
RBC 3.58 10^6/uL (4.70-6.10) L 03/30/25 06:01
Hgb 8.7 g/dL (13.0-18.0) L 03/30/25 06:01
Hct 29.6 % (39.0-52.0) L 03/30/25 06:01
MCV 82.7 fL (80.0-94.0) 03/30/25 06:01
MCH 24.3 pg (27.0-31.0) L 03/30/25 06:01
MCHC 29.4 g/dL (33.0-37.0) L 03/30/25 06:01
RDW 25.0 % (11.5-14.5) H 03/30/25 06:01
Plt Count 293 10^3/uL (130-400) 03/30/25 06:01
MPV 9.0 fL (7.4-10.4) 03/30/25 06:01
Abs Immat Gran (auto) 0.3 10^3/uL (0-0.05) H 03/28/25 10:03
Absolute Neuts (auto) 7.9 10^3/uL (1.4-6.5) H 03/28/25 10:03
Absolute Lymphs (auto) 0.8 10^3/uL (1.2-3.4) L 03/28/25 10:03
Absolute Monos (auto) 0.7 10^3/uL (0.1-0.6) H 03/28/25 10:03
Absolute Eos (auto) 0.0 10^3/uL (0-0.7) 03/28/25 10:03
Absolute Basos (auto) 0.1 10^3/uL (0-0.2) 03/28/25 10:03
Immature Gran % 3.3 % (0-0.5) H 03/28/25 10:03
Neutrophils % 80.2 % (42.2-75.2) H 03/28/25 10:03
Lymphocytes % 8.2 % (20.5-51.1) L 03/28/25 10:03
Monocytes % 7.5 % (1.7-9.3) 03/28/25 10:03
Eosinophils % 0.3 % (0-6) 03/28/25 10:03
Basophils % 0.5 % (0-2) 03/28/25 10:03
Creatinine 0.6 mg/dL (0.7-1.3) L 03/30/25 06:00
Vital Signs
Vital Signs
Temp Pulse Resp BP Pulse Ox
97.6 F 92 16 106/47 98
03/30/25 12:43 03/30/25 12:43 03/30/25 12:43 03/30/25 12:43 03/30/25 12:43
[2025-03-30 15:01] LABS: Reticulocyte Count 2.0 % (0.4-2.8)
[2025-03-30 15:10] LABS: Total Iron Binding Capacity 217 ug/dl (261-462)
[2025-03-30 15:15] VITALS: BP 119/64
[2025-03-30 16:22] LABS: Ferritin 2920.0 ng/ml (17.9-464.0)
[2025-03-30] MEDS: ZAROXOLYN 5 MG PO (16:46)
--- NOTE | 2025-03-30 16:53 | PTOTSP ---
ST Acute Care Evaluation
Pt currently presents with a fairly functional oropharyngeal swallow with no evidence/reports of any esophageal dysfunction based on clinical bedside swallowing assessment. Given pt's ongoing respiratory difficulties and fairly persistent
expectoration of mildly thick secretions throughout the day, it would be fair to consider an instrumental swallow study to rule out silent aspiration. Will avoid FEES given today's nose bleed.
Recommendations:
- Continue with regular solids, thin liquids, meds as tolerated with general aspiration precautions.
- VFSS on Tuesday - please place order.
- DIRECTOR OF EPIDEMIOLOGY to f/u with recommendations upon completion of VFSS.
[2025-03-30 17:12] LABS: Glucose - Point of Care 154 mg/dl (70-99)
[2025-03-30] MEDS: LIPITOR 80 MG PO (17:37)
[2025-03-30] MEDS: ZOLOFT 50 MG PO (17:37)
[2025-03-30] MEDS: LANTUS 0.14 UNITS SC (18:17)
[2025-03-30 19:00] VITALS: BP 122/64
[2025-03-30 21:17] LABS: Glucose - Point of Care 217 mg/dl (70-99)
[2025-03-30 23:19] VITALS: BP 105/49
[2025-03-31 03:03] VITALS: BP 96/47
[2025-03-31 06:00] VITALS: BMI 28.5
[2025-03-31] MEDS: TYLENOL 1000 MG PO ×2 (06:29→20:56)
[2025-03-31 06:32] LABS: ALT (SGPT) 47 U/L (0-50); AST (SGOT) 73 U/L (17-59); Albumin 2.8 g/dl (3.5-5.0); Alkaline Phosphatase 805 U/L (38-126); Blood Urea Nitrogen 27 mg/dl (9-20); Calcium 8.4 mg/dl (8.4-10.2); Carbon Dioxide 36 mmol/L (22-30); Chloride 94 mmol/L (98-107); Estimated Creatinine Clearance 93 ml/min; Glucose 127 mg/dl (70-99); Magnesium 2.0 mg/dl (1.6-2.3); Potassium 3.8 mmol/L (3.5-5.1); Sodium 135 mmol/L (135-145); Total Protein 5.6 g/dl (6.3-8.2); eGFR > 60.00
[2025-03-31 06:35] LABS: Hematocrit 28.7 % (39.0-52.0); Hemoglobin 8.6 g/dL (13.0-18.0); Mean Corp Hgb Conc. 30.0 g/dL (33.0-37.0); Mean Corpuscular Volume 83.4 fL (80.0-94.0); Platelet Count 295 10^3/uL (130-400); Red Cell Dist. Width 25.2 % (11.5-14.5)
[2025-03-31 07:00] VITALS: BP 105/56
[2025-03-31 07:19] LABS: Glucose - Point of Care 138 mg/dl (70-99)
[2025-03-31] MEDS: NOVOLOG FLEXPEN-LOW RESISTANCE SC (08:45)
[2025-03-31] MEDS: NOVOLOG FLEXPEN 6 UNITS SC ×3 (09:35→17:53)
[2025-03-31] MEDS: LASIX 80 MG IV ×2 (09:43→17:52)
[2025-03-31] MEDS: ALDACTONE 12.5 MG PO (09:44)
[2025-03-31] MEDS: PACERONE 200 MG PO ×2 (09:45→20:57)
[2025-03-31] MEDS: ELIQUIS 5 MG PO ×2 (09:45→20:42)
[2025-03-31] MEDS: IMODIUM 4 MG PO ×2 (09:45→20:55)
[2025-03-31] MEDS: PROTONIX 40 MG PO (09:45)
[2025-03-31] MEDS: MS CONTIN (EXTENDED RELEASE) 30 MG PO ×2 (09:45→20:55)
[2025-03-31] MEDS: FARXIGA 10 MG PO (09:45)
[2025-03-31] MEDS: DELTASONE 5 MG PO ×2 (09:46→20:42)
[2025-03-31] MEDS: TOPROL XL PO (09:47)
--- NOTE | 2025-03-31 10:09 | W.PN.HOSP.TC ---
Today's Communication/Plan
-
Continue diuresis. Will re-start albuterol nebs.
Assessment / Plan
Assessment / Plan
84-year-old male p/w acute on chronic shortness of breath and palpitation.
He is compliant with his medications and denies any new medications.
In the ED, he was found to be in A fib RVR with mild CHF.
A/P:
1. Paroxysmal A fib with RVR POA
Started Cardizem drip in ED, then converter, now on po amiodarone
Cont GLOBAL CHIEF EXPERIENCE OFFICER Toprol
Added Amiodarone
Cont GLOBAL CHIEF EXPERIENCE OFFICER Eliquis
Card on board. Their recs from yesterday:
'Will get more aggressive with diuresis, adding 5 mg of Zaroxolyn as a one-time dose tonight prior to his next scheduled dose of IV Lasix.'
Continue diuresis
2. SOB due to acute on chronic HFpEF - see above
3. Mild transaminitis likely 2/2 hepatic congestion
4. SOB - multifactorial with Chronic hypoxic respiratory failure on 3L home O2
BNP 5900 on admission
Echo from 01/2025 showed
EF 58%, No significant valve disease.
Compared to prior echo from October 2024, no significant change.
Admission CXR showed
Mild pulmonary vascular congestion.
Widespread osseous metastatic disease.
CT PE
neg for PE, but confirmed mild pulmonary edema,
Small bilateral pleural effusions.
Bibasilar airspace consolidation may also be present.
Also widespread osteoblastic metastasis.
Chronic compression fracture of the T3 vertebral body.
Cont diuresis
Follow daily weight
Cont GLOBAL CHIEF EXPERIENCE OFFICER BB
Patient requested restart of his albuterol nebs
5. Chronic anemia
Monitor Hgb
6. h/o ILD
followed by Dr. Rowley as an outpatient.
Cont GLOBAL CHIEF EXPERIENCE OFFICER prednisone 5 mg daily
7. Chronic urinary retention
patient does self-catheterization at home.
Ballard catheterization Q6H during hospital stay
8. CAD with history of stents in May 2024
Continue statin, beta-yaneli.
9. History of rheumatic heart disease
10. Essential hypertension
continue GLOBAL CHIEF EXPERIENCE OFFICER Norvasc and Toprol with holding parameter
11. Hyperlipidemia
continue atorvastatin.
12. Metastatic prostate carcinoma s/p Radical prostatectomy 2002
13. History of radiation treatment
Off chemo
Follows up with Dr. Mendez and Dr. Patterson
There is talk of palliative care moving forward in outpatient setting, however pt remains a full code now
14. Chronic pain syndrome / chronic opioid dependence
continue GLOBAL CHIEF EXPERIENCE OFFICER Dilaudid, MS Contin, prednisone.
15. Depression
continue sertraline
16. Obesity due to excess calories - current BMI 28
17. IDDM
cont GLOBAL CHIEF EXPERIENCE OFFICER insulin, Jardiance
ISS coverage
DVT prophylaxis- Eliquis
Full code
Dispo: PT OT eval
Anticipated Discharge: > 48 hours
Subjective/Interval History
-
Date of Service: March 31, 2025
Requested to restart his albuterol nebs. Otherwise no complaints.
Objective Data
-
Labs:
Laboratory Results
03/31/25
05:00
WBC 9.1
Hgb 8.6 L
Hct 28.7 L
Plt Count 295
Sodium 135
Potassium 3.8
Chloride 94 L
Carbon Dioxide 36 H
BUN 27 H
Creatinine 0.7
Glucose 127 H
Calcium 8.4
Total Bilirubin 0.6
AST 73 H
ALT 47
Alkaline Phosphatase 805 H
Vital Signs:
Vital Signs
Temp Pulse Resp BP Pulse Ox
97.9 F 89 18 105/56 100
03/31/25 07:00 03/31/25 07:00 03/31/25 03:03 03/31/25 07:00 03/31/25 07:00
I&O
03/30/25 03/31/25 04/01/25
06:59 06:59 06:59
Intake Total 1620 / 1620 480 / 480
Output Total 2140 / 2140 3550 / 3550
Balance -520 / -520 -3070 / -3070
Review of Systems
-
History Source: Patient
All other systems: Reviewed and negative
Physical Exam
-
General: Well Developed, Well Nourished, No Apparent Distress, Comfortable and Appears Chronically Ill
HEENT: Normocephalic, Moist Mucous Membranes, Nose Appears Normal and Ears Appear Normal
Respiratory: Crackles and Decreased Breath Sounds
Cardiac: Regular Rhythm and S1/S2
GI: Soft, Nontender and Nondistended
Musculoskeletal: No Clubbing and No Cyanosis
Skin: Warm and Dry
Neuro: Awake, Alert, Oriented and AO x 3
Psych: Calm
Data Reviewed
-
Labs: Labs Reviewed by me
[2025-03-31 11:00] VITALS: BP 106/56
[2025-03-31] MEDS: DESENEX/MITRAZOL/ZEASORB 1 APPLIC TOPICAL ×2 (11:37→20:42)
[2025-03-31 11:47] LABS: Glucose - Point of Care 200 mg/dl (70-99)
[2025-03-31] MEDS: NOVOLOG FLEXPEN-LOW RESISTANCE 2 UNITS SC ×2 (12:21→17:52)
[2025-03-31] MEDS: VENTOLIN NEBULES 2.5 MG INH ×2 (12:33→21:31)
--- NOTE | 2025-03-31 14:16 | W.PN.ONC2 ---
Today's Communication / Plan
-
- ongoing diuresis
- S+S eval, PT/OT eval.
- out-pt onc follow up for ongoing GOC, reassessment of PS.
Impression
Impression
- paroxysmal a-fib w/ RVR
- volume overload
- hx of metastatic prostate cancer
- bone metastases with cancer associated pain
- pneumonitis hx on chronic O2
Plan
Plan
- sujit unfortunately has had multiple hospital admissions over past 6-9 months for respiratory compromise initially thought to be due to taxane pneumonitis for which he completed steroids then new onset a-fib with CHF exacerbations which he is again
admitted for today. Apprec cardiology in-put. converted to sinus with amio.
- he has progressed on several lines of therapy for his prostate cancer and due to decline in PS has not been candidate for new lines of therapy. PSA ordered however suspect POD due to aggressive nature at time of tx stop, rising ALP.
- We have discussed several times transitioning to hospice however pt has declined and does again when GOC reviewed this admission. Arrangements are being made at home with plan for palliative services and transitioning to hospice if no clinical
improvement which is looking more and more bleach. he is aware no further cancer directed therapies is planned at this time.
- persistent moderate anemia likely related to bone metastases, other chronic comorbidities with ferritin > 2000, low IS. ideally would optimize as this may help reduce CHF events however pt unable to get into office for epo agonists or even
routine lab monitoring. transfuse for hgb < 7.5 g/dl with active cardiac symptoms.
- pt with ongoing O2 needs despite resolution of pneumonitis, when in NSR w/o volume overload. aspiration assessment ordered outpt but family unable to get him to hospital. placed consult to S+S. bedside assessment without obvious aspiration. video
study ordered for tuesday.
will continue to follow.
Subjective/Objective
Chief Complaint
hx of prostate cancer, CHF EXACERBATION WITH AFIB
Subjective
pt with no new complaints today, remains on 2L NC however notes able to get up to side of bed earlier which is improvement for him. LE swelling also improved.
Vital Signs:
Vital Signs
Temp Pulse Resp BP Pulse Ox
97.9 F 100 16 106/56 99
03/31/25 11:00 03/31/25 12:35 03/31/25 12:35 03/31/25 11:00 03/31/25 12:35
Lab Results:
Laboratory Data
WBC 9.1 10^3/uL (4.8-10.8) 03/31/25 05:00
Hgb 8.6 g/dL (13.0-18.0) L 03/31/25 05:00
Plt Count 295 10^3/uL (130-400) 03/31/25 05:00
eGFR > 60.00 03/31/25 05:00
Physical Exam
HEENT: No Jaundice
Cardiology: Normal Sinus Rhythm
Extremities: Edema (1+ LE pitting edema, improved)
Neuro: Non Focal
Review of Systems
Review of Systems
Constitutional: Reports Fatigue; Denies Fever
Respiratory: Reports Dyspnea and Cough
Cardiovascular: Denies Chest Pain or Palpitations
Orders
Orders
Orders From Last 24 Hours
03/30/25 14:25
Speech Therapy Eval & Treat Routine
[2025-03-31 15:00] VITALS: BP 141/65
[2025-03-31 17:40] LABS: Glucose - Point of Care 205 mg/dl (70-99)
[2025-03-31] MEDS: ZOLOFT 50 MG PO (17:52)
[2025-03-31] MEDS: LIPITOR 80 MG PO (17:52)
[2025-03-31] MEDS: LANTUS 0.14 UNITS SC (17:59)
[2025-03-31 20:51] VITALS: BP 152/71
[2025-03-31] MEDS: TOPROL XL 25 MG PO (20:57)
[2025-03-31 21:33] LABS: Glucose - Point of Care 143 mg/dl (70-99)
[2025-04-01] VITALS (7 sets, daily range): BP systolic 96–130; BP diastolic 53–69; BMI 28.0
[2025-04-01 07:50] LABS: Glucose - Point of Care 150 mg/dl (70-99)
[2025-04-01] MEDS: FARXIGA 10 MG PO (08:14)
[2025-04-01] MEDS: ELIQUIS 5 MG PO ×2 (08:14→19:11)
[2025-04-01] MEDS: TOPROL XL 25 MG PO ×2 (08:14→19:11)
[2025-04-01] MEDS: IMODIUM 4 MG PO ×2 (08:14→19:11)
[2025-04-01] MEDS: MS CONTIN (EXTENDED RELEASE) 30 MG PO ×2 (08:14→19:11)
[2025-04-01] MEDS: PROTONIX 40 MG PO (08:14)
[2025-04-01] MEDS: TYLENOL 1000 MG PO ×2 (08:14→19:12)
[2025-04-01] MEDS: ALDACTONE 12.5 MG PO (08:14)
[2025-04-01] MEDS: LASIX 80 MG IV ×2 (08:15→17:52)
[2025-04-01] MEDS: PACERONE 200 MG PO (08:15)
[2025-04-01] MEDS: NOVOLOG FLEXPEN 6 UNITS SC ×3 (08:17→17:52)
[2025-04-01] MEDS: NOVOLOG FLEXPEN-LOW RESISTANCE 1 UNITS SC ×2 (08:17→17:52)
[2025-04-01] MEDS: DELTASONE 5 MG PO ×2 (08:18→19:11)
[2025-04-01 08:49] LABS: Hematocrit 30.1 % (39.0-52.0); Hemoglobin 9.1 g/dL (13.0-18.0); Mean Corp Hgb Conc. 30.2 g/dL (33.0-37.0); Mean Corpuscular Volume 80.7 fL (80.0-94.0); Platelet Count 303 10^3/uL (130-400); Red Cell Dist. Width 24.9 % (11.5-14.5)
[2025-04-01 08:57] LABS: ALT (SGPT) 51 U/L (0-50); AST (SGOT) 68 U/L (17-59); Albumin 3.1 g/dl (3.5-5.0); Alkaline Phosphatase 828 U/L (38-126); Blood Urea Nitrogen 37 mg/dl (9-20); Calcium 8.3 mg/dl (8.4-10.2); Carbon Dioxide 38 mmol/L (22-30); Chloride 89 mmol/L (98-107); Estimated Creatinine Clearance 81 ml/min; Glucose 137 mg/dl (70-99); Magnesium 2.0 mg/dl (1.6-2.3); Potassium 3.8 mmol/L (3.5-5.1); Sodium 136 mmol/L (135-145); Total Protein 6.1 g/dl (6.3-8.2); eGFR > 60.00
--- NOTE | 2025-04-01 09:21 | W.PN.ONC2 ---
Today's Communication / Plan
-
AF/CHF per cardiology
VSE
continue GOC support
consider infectious evaluation with Tmax 100.8F d/w primary service
at bedside provided updates and questions answered
Impression
Impression
multiple hospital admissions over past 6-9 months for respiratory compromise -pneumonitis, AF, CHF
- paroxysmal a-fib w/ RVR
- volume overload
- hx of metastatic prostate cancer with POD on multiple lines of therapy
- bone metastases with cancer associated pain
- pneumonitis hx on chronic O2
-Tmax 100.8F
Plan
Plan
Apprec cardiology in-put. converted to sinus with amio.
due to decline in PS has not been candidate for new lines of therapy. f/u PSA
-appropriate for hospice however pt has declined and does again when GOC reviewed this admission. Arrangements are being made at home with plan for palliative services and transitioning to hospice if no clinical improvement He is aware no further
cancer directed therapies is planned at this time.
- persistent moderate anemia likely related to bone metastases, other chronic comorbidities with ferritin > 2000, low IS. ideally would optimize as this may help reduce CHF events however pt unable to get into office for epo agonists or even
routine lab monitoring. transfuse for hgb < 7.5 g/dl with active cardiac symptoms.
- pt with ongoing O2 needs despite resolution of pneumonitis, when in NSR w/o volume overload. S+S. bedside assessment without obvious aspiration. f/u video study
Subjective/Objective
Subjective
no new complaints
Tmax 100.8F, 3L NC
Vital Signs:
Vital Signs
Temp Pulse Resp BP Pulse Ox
97.8 F 90 20 130/66 100
04/01/25 07:29 04/01/25 07:29 04/01/25 07:29 04/01/25 07:29 04/01/25 07:29
Lab Results:
Laboratory Data
WBC 10.0 10^3/uL (4.8-10.8) 04/01/25 07:51
Hgb 9.1 g/dL (13.0-18.0) L 04/01/25 07:51
Plt Count 303 10^3/uL (130-400) 04/01/25 07:51
eGFR > 60.00 04/01/25 07:51
Physical Exam
HEENT: Moist Mucous Membranes; No Jaundice
Pulmonary: Other (unlabored)
GI: Soft
Extremities: Pulses Present and Edema
[2025-04-01] MEDS: DESENEX/MITRAZOL/ZEASORB 1 APPLIC TOPICAL ×2 (09:42→19:12)
--- NOTE | 2025-04-01 10:00 | PTOTSP ---
Speech Language Pathology
VIDEOFLUOROSCOPIC SWALLOWING EXAMINATION (VSE) completed. Of note, view significantly limited by body habitus/obstruction of view from shoulders. Oropharyngeal swallow appeared to be WFL. Supraglottic penetration with consecutive straw sips of
thin liquids only with no aspiration noted during study.
Recommend:
(1) Regular solids/thin liquids
(2) General aspiration precautions
(3) Meds as tolerated
(4) IRRIGATOR to sign off. If instrumental swallowing assessment required in the future, would consider flexible endoscopic evaluation of swallowing (FEES) given decreased view on VSE secondary to body habitus
--- NOTE | 2025-04-01 11:16 | W.PN.CARDCBS ---
Addendum entered and electronically signed by Yosef Carter MD 04/01/25 13:01:
I saw and examined the patient.
The ADMINISTRATIVE EXECUTIVE or PA's note was reviewed and I agree with the note.
Comment: General: Well developed, well nourished in NAD.
Neck: Supple, no JVD, HJR, carotids +2 B/L, no bruits bilaterally.
Heart: Non displaced PMI, RRR, no murmurs, No S3, S4, no rubs.
Lungs: Scattered rhonchi at the bases
Extremities: Chronic venous stasis changes
Neuro: Grossly nonfocal, awake, alert and oriented x3.
Next response to metolazone given on 03/31. Will write for daily dosing of metolazone and continue IV Lasix. QT mildly prolonged and will decrease amiodarone to 200 mg daily and follow on ECG. Of note he remains on 3 L of oxygen which he was on at
home.
Original Note:
Today's Communication / Plan
-
Replete potassium 40 mEq now with additional dose this evening with dinner
Give metolazone 5 mg 30 minutes before IV dose of afternoon Lasix
Reduce Amio to 200 mg QD
ECG in am
Impression / Plan
-
Primary Irrigation Equipment Mechanic: Dr. Carter
Assessment:
Presentation with SOB, 03/28/2025
Acute on chronic HFpEF, proBNP 5960
Paroxysmal atrial fibrillation with RVR
Initially diagnosed 11/14/2024 and spontaneously converted to SR
Chronic Eliquis OAC
CAD
s/p 2.25 mm and 2.5 mm Medtronic [place] THOMAS to distal to apical LAD 06/12/24
Metastatic prostate cancer
Hyperlipidemia, LDL 195
DM2
Prior interstitial pneumonitis, felt to be improved
Depression/anxiety
ECHO 01/30/25: EF 58.7%, no significant valvular disease
Plan:
Admitted 03/28/2025 with HFpEF, acute on chronic as well as A-fib with RVR. ProBNP 5960
Previously patient has been rate controlled for atrial fibrillation given history of interstitial pneumonitis and concern for ILD there has been some hesitation for amiodarone. On review of prior pulmonary notes as well as CXR and Chest CT from
01/2025 admission, appears that interstitial pneumonitis felt to be improved/resolved without evidence of ILD. Discussed with pulmonary 03/28/25 and they are okay with initiation of amiodarone for paroxysmal A-fib.
started on Amio 200 mg 3 times daily 03/28/2025 and follow QTc by EKG. also on sertraline 50 mg every afternoon as outpatient.
converted to NSR 03/28. EKG 04/01 NSR QTc 531 ms/ slightly more prolonged than 105 with QTc 516 ms
Reduce amio to 200 mg daily; he has gotten 2 gram load as of 04/01 in am
Maintain outpt Toprol 25 mg bid
Maintain Jardiance (on for both heart failure and diabetes)
Maintain spironolactone
Continue outpatient Eliquis
Has not diuresed very aggressively on IV Lasix 80 IV twice daily. As outpatient is on 80 mg p.o. twice daily and reports compliance
Given dose of Zaroxolyn 5 mg on 03/30 weight down 2 lbs overnight (if bed scale correct). Continue to follow weights and fluid balance closely; Would give an additional dose of Zaroxolyn 5 mg 04/01 30 minutes before IV Lasix given chest x-ray
04/01/2025 findings concerning for mild interstitial pulmonary edema
Will give oral potassium today fro K+ 3.8, give additional 40 meq now and additional dose this evenin
- CHF education
- OOB
- chronically on 3L NC at home and is on 3L now
Noted to be febrile on 03/31/2025 with Tmax 100.8 degrees but afebrile since. Chest x-ray demonstrating mild interstitial pulmonary edema and small bilateral effusions as well as very extensive blastic osseous metastatic disease
VSE today - pending
Of note, he is planned to be followed by palliative care moving forward in outpatient setting, however remains a full code
Progress Note - Irrigation Equipment Mechanic
Subjective
Date of Service: April 01, 2025
Patient seen and examined. Patient reports he still is getting short of breath with minimal activity but comfortable at rest. Denies chest pain.
Objective
Labs:
04/01/25 07:51
04/01/25 07:51
Labs
Hgb 9.1 g/dL (13.0-18.0) L 04/01/25 07:51
Hct 30.1 % (39.0-52.0) L 04/01/25 07:51
Plt Count 303 10^3/uL (130-400) 04/01/25 07:51
Sodium 136 mmol/L (135-145) 04/01/25 07:51
Potassium 3.8 mmol/L (3.5-5.1) 04/01/25 07:51
BUN 37 mg/dl (9-20) H 04/01/25 07:51
Creatinine 0.8 mg/dL (0.7-1.3) 04/01/25 07:51
Glucose 137 mg/dl (70-99) H 04/01/25 07:51
Vital Signs and I&O:
Vital Signs
Temp Pulse Resp BP Pulse Ox
97.8 F 90 20 130/66 100
04/01/25 07:29 04/01/25 07:29 04/01/25 07:29 04/01/25 07:29 04/01/25 07:29
Vital Signs
Temp Pulse Resp BP Pulse Ox
97.8 F 90 20 130/66 100
04/01/25 07:29 04/01/25 07:29 04/01/25 07:29 04/01/25 07:29 04/01/25 07:29
Intake & Output
03/30/25 03/31/25 04/01/25 04/02/25
06:59 06:59 06:59 06:59
Intake Total 1620 / 1620 480 / 480 120 / 120
Output Total 2140 / 2140 3550 / 3550 3400 / 3400
Balance -520 / -520 -3070 / -3070 -3280 / -3280
Physical Exam
Physical Exam
GEN: No distress, awake, Ox3 elderly ill-appearing gentleman lying in bed
HEENT: supple, anicteric, mmm
LUNGS: Crackles at bilateral bases with mildly decreased breath sounds at bases, no wheezes; on 3 lpm of O2 via N/C
CV: Reg, S1/S2, no murmur, rub or gallop
ABD: Mild distention/obese, soft, BS+, NT
EXT: No edema, clubbing or cyanosis
NEURO: Gross non-focal
SKIN: No rash, warm, dry, pink
[2025-04-01 12:11] LABS: Urine Character Clear (Clear)
[2025-04-01 12:26] LABS: Glucose - Point of Care 284 mg/dl (70-99)
[2025-04-01 12:33] LABS: Urine Urothelial Cell 0-2 /LPF (FEW)
[2025-04-01 12:34] LABS: Urine White Cell 26-30 /HPF (0-5)
[2025-04-01] MEDS: NOVOLOG FLEXPEN-LOW RESISTANCE 3 UNITS SC (12:52)
--- NOTE | 2025-04-01 14:05 | CM ---
Chart reviewed. Met with pt bedside; on O2 via n/c. Pt continues on IV Lasix. Pending video swallow. Pending blood and urine cultures
Plan: home to son's house with care aides, PT and home O2. Will monitor for additional discharge needs.
[2025-04-01] MEDS: KCL 40 MEQ PO (14:24)
--- NOTE | 2025-04-01 15:57 | W.PN.HOSP.TC ---
Today's Communication/Plan
-
Diuresis from Cardiology
UTI tx; start Rocephin
Assessment / Plan
Assessment / Plan
84-year-old male p/w acute on chronic shortness of breath and palpitation.
He is compliant with his medications and denies any new medications.
In the ED, he was found to be in A fib RVR with mild CHF.
Assessment:
Acute on chronic HFpEF
- continue IV Lasix + Zaroxolyn; requires intensive monitoring of I/Os, weights, lytes
Parox A. fib with RVR POA
- s/p Cardizem drip
- now in NSR; continue Amiodarone. Continue Toprol XL. Continue Eliquis
Elevated LFTs - mild - in setting of passive congestion
- follow LFTs
CAD hx of stenting 2023
- continue statin/BB
Chronic hypoxic respiratory failure on 3L NC
- CT: Small bilateral pleural effusions, widespread osteoblastic metastasis
- monitor O2 needs
Chronic compression fracture of the T3 vertebral body
Chronic anemia
- Hb 9.1
Hx of ILD
- OP f/u Dr. Rowley
- continue prednisone
Chronic urinary retention
- patient self-caths at home
- UA + for possible UTI; IV Rocephin day 1
History of rheumatic heart disease
Essential hypertension
- continue Norvasc/Toprol
Hyperlipidemia
- continue statin
Metastatic prostate carcinoma s/p Radical prostatectomy 2002
History of radiation treatment
- Off chemo
- Follows up with Dr. Mendez and Dr. Patterson
- There is talk of palliative care moving forward in outpatient setting, however pt remains a full code now
Chronic pain syndrome/chronic opioid dependence
- continue HEALTH OFFICER Dilaudid, MS Contin, prednisone.
Depression
- continue sertraline
Obesity due to excess calories - current BMI 28
IDDM
- cont HEALTH OFFICER insulin, Jardiance
- ISS coverage
DVT prophylaxis: Eliquis
Code: Full
Anticipated Discharge: > 48 hours
Subjective/Interval History
-
Date of Service: April 01, 2025
fever overnight to 100.8
no specific complaints
Objective Data
-
Labs:
Laboratory Results
04/01/25
07:51
WBC 10.0
Hgb 9.1 L
Hct 30.1 L
Plt Count 303
Sodium 136
Potassium 3.8
Chloride 89 L
Carbon Dioxide 38 H
BUN 37 H
Creatinine 0.8
Glucose 137 H
Calcium 8.3 L
Total Bilirubin 0.8
AST 68 H
ALT 51 H
Alkaline Phosphatase 828 H
Vital Signs:
Vital Signs
Temp Pulse Resp BP Pulse Ox
97.7 F 84 18 119/63 98
04/01/25 15:26 04/01/25 15:26 04/01/25 15:26 04/01/25 15:26 04/01/25 15:26
I&O
03/31/25 04/01/25 04/02/25
06:59 06:59 06:59
Intake Total 480 / 480 120 / 120
Output Total 3550 / 3550 3400 / 3400 1300 / 1300
Balance -3070 / -3070 -3280 / -3280 -1300 / -1300
Physical Exam
-
General: No Apparent Distress
HEENT: Normocephalic and Atraumatic
Respiratory: Negative Wheezes
Cardiac: Regular Rhythm
GI: Soft and Nontender
Neuro: AO x 3
Psych: Calm
Data Reviewed
-
Total Time Spent with Patient (in minutes): 42
Labs: Labs Reviewed by me
[2025-04-01 16:27] LABS: Glucose - Point of Care 151 mg/dl (70-99)
[2025-04-01] MEDS: KCL 20 MEQ PO (17:52)
[2025-04-01] MEDS: ZAROXOLYN 5 MG PO (17:52)
[2025-04-01] MEDS: ZOLOFT 50 MG PO (17:53)
[2025-04-01] MEDS: ROCEPHIN 1000 MG IV (17:53)
[2025-04-01] MEDS: LANTUS 0.14 UNITS SC (17:53)
[2025-04-01] MEDS: LIPITOR 80 MG PO (17:53)
[2025-04-01] MEDS: STERILE WATER FOR INJECTION 10 ML IV (17:53)
[2025-04-01 21:10] LABS: Glucose - Point of Care 168 mg/dl (70-99)
[2025-04-02] VITALS (7 sets, daily range): BP systolic 96–143; BP diastolic 53–74; BMI 27.6
[2025-04-02] MEDS: DILAUDID 2 MG PO (06:02)
[2025-04-02 07:02] LABS: Hematocrit 28.7 % (39.0-52.0); Hemoglobin 8.9 g/dL (13.0-18.0); Mean Corp Hgb Conc. 31.0 g/dL (33.0-37.0); Mean Corpuscular Volume 81.8 fL (80.0-94.0); Platelet Count 285 10^3/uL (130-400); Red Cell Dist. Width 24.9 % (11.5-14.5)
[2025-04-02 07:17] LABS: ALT (SGPT) 57 U/L (0-50); AST (SGOT) 74 U/L (17-59); Albumin 3.0 g/dl (3.5-5.0); Alkaline Phosphatase 773 U/L (38-126); Blood Urea Nitrogen 42 mg/dl (9-20); Calcium 8.4 mg/dl (8.4-10.2); Carbon Dioxide 39 mmol/L (22-30); Chloride 88 mmol/L (98-107); Estimated Creatinine Clearance 81 ml/min; Glucose 124 mg/dl (70-99); Potassium 3.7 mmol/L (3.5-5.1); Sodium 135 mmol/L (135-145); Total Protein 6.1 g/dl (6.3-8.2); eGFR > 60.00
[2025-04-02 07:50] LABS: Glucose - Point of Care 151 mg/dl (70-99)
--- NOTE | 2025-04-02 08:59 | W.PN.ONC2 ---
Today's Communication / Plan
-
.
Impression
Impression
multiple hospital admissions over past 6-9 months for respiratory compromise -pneumonitis, AF, CHF
- paroxysmal a-fib w/ RVR
- volume overload
- hx of metastatic prostate cancer with POD on multiple lines of therapy
- bone metastases with cancer associated pain
- pneumonitis hx on chronic O2
-Tmax 100.8F on 04/01 -cxr no PNA, cultures pending
Plan
Plan
AF/CHF per cardiology
due to decline in PS has not been candidate for new lines of therapy. f/u PSA
-appropriate for hospice however pt has declined and does again when GO reviewed this admission. Arrangements are being made at home with plan for palliative services and transitioning to hospice if no clinical improvement He is aware no further
cancer directed therapies is planned at this time.
- persistent moderate anemia likely related to bone metastases, other chronic comorbidities with ferritin > 2000, low IS. ideally would optimize as this may help reduce CHF events however pt unable to get into office for epo agonists or even
routine lab monitoring. transfuse for hgb < 7.5 g/dl with active cardiac symptoms.
- pt with ongoing O2 needs despite resolution of pneumonitis, when in NSR w/o volume overload. S+S. bedside assessment without obvious aspiration. f/u video study
Subjective/Objective
Subjective
afebrile, 3L NC
rec'ed hyrdomorphone this morning for 'whole body pain' and continues morphine extended release
Vital Signs:
Vital Signs
Temp Pulse Resp BP Pulse Ox
97.9 F 89 18 132/69 100
04/02/25 07:00 04/02/25 07:00 04/02/25 07:00 04/02/25 07:00 04/02/25 07:00
Lab Results:
Laboratory Data
WBC 9.2 10^3/uL (4.8-10.8) 04/02/25 06:01
Hgb 8.9 g/dL (13.0-18.0) L 04/02/25 06:01
Plt Count 285 10^3/uL (130-400) 04/02/25 06:01
eGFR > 60.00 04/02/25 06:01
Physical Exam
HEENT: Moist Mucous Membranes; No Jaundice
Pulmonary: Other (unlabored)
GI: Soft
Extremities: Pulses Present and Edema
chest mediport
[2025-04-02] MEDS: NOVOLOG FLEXPEN 6 UNITS SC ×3 (09:01→17:32)
[2025-04-02] MEDS: NOVOLOG FLEXPEN-LOW RESISTANCE 1 UNITS SC ×2 (09:02→13:08)
[2025-04-02] MEDS: FARXIGA 10 MG PO (09:02)
[2025-04-02] MEDS: TOPROL XL 25 MG PO ×2 (09:02→20:32)
[2025-04-02] MEDS: DELTASONE 5 MG PO ×2 (09:02→20:31)
[2025-04-02] MEDS: IMODIUM 4 MG PO ×2 (09:03→20:32)
[2025-04-02] MEDS: PACERONE 200 MG PO (09:04)
[2025-04-02] MEDS: LASIX 80 MG IV ×2 (09:04→17:26)
[2025-04-02] MEDS: ELIQUIS 5 MG PO ×2 (09:06→20:32)
[2025-04-02] MEDS: MS CONTIN (EXTENDED RELEASE) 30 MG PO ×2 (09:07→20:32)
[2025-04-02] MEDS: ALDACTONE 12.5 MG PO (09:07)
[2025-04-02] MEDS: TYLENOL 1000 MG PO ×2 (09:07→20:32)
[2025-04-02] MEDS: PROTONIX 40 MG PO (09:09)
[2025-04-02] MEDS: DESENEX/MITRAZOL/ZEASORB 1 APPLIC TOPICAL ×2 (09:56→20:31)
--- NOTE | 2025-04-02 11:52 | W.PN.HOSP.TC ---
Today's Communication/Plan
-
Rocephin pending cultures
continue diuresis per Cardiology
Assessment / Plan
Assessment / Plan
84-year-old male p/w acute on chronic shortness of breath and palpitation.
He is compliant with his medications and denies any new medications.
In the ED, he was found to be in A fib RVR with mild CHF.
Assessment:
Acute on chronic HFpEF
- continue IV Lasix + Zaroxolyn; requires intensive monitoring of I/Os, weights, lytes
- [facility] following
Parox A. fib with RVR POA
- s/p Cardizem drip
- now in NSR; continue Amiodarone. Continue Toprol XL. Continue Eliquis
- [facility] following
Elevated LFTs - mild - in setting of passive congestion
- follow LFTs
Nonischemic myocardial injury
CAD hx of stenting 2023
- continue statin/BB
Chronic hypoxic respiratory failure on 3L NC
- CT: Small bilateral pleural effusions, widespread osteoblastic metastasis
- monitor O2 needs
Chronic compression fracture of the T3 vertebral body
Chronic anemia
- Hb 8.9
Hx of ILD
- OP f/u Dr. Rowley
- continue prednisone
Chronic urinary retention
- patient self-caths at home
- UA + for E. Coli CAUTI POA with recent outpatient [place] cath; IV Rocephin day 2
History of rheumatic heart disease
Essential hypertension
- continue Norvasc/Toprol
Hyperlipidemia
- continue statin
Metastatic prostate carcinoma s/p Radical prostatectomy 2002
History of radiation treatment
- Off chemo
- Follows up with Dr. Mendez and Dr. Patterson
- There is talk of palliative care moving forward in outpatient setting, however pt remains a full code now
Chronic pain syndrome/chronic opioid dependence
- continue GOLF CART ATTENDANT Dilaudid, MS Contin, prednisone.
Depression
- continue sertraline
Obesity due to excess calories - current BMI 28
IDDM
- cont GOLF CART ATTENDANT insulin, Jardiance
- ISS coverage
DVT prophylaxis: Eliquis
Code: Full
Anticipated Discharge: > 48 hours
Subjective/Interval History
-
Date of Service: April 02, 2025
weight further down to 97kg
reports breathing improving
Objective Data
-
Labs:
Laboratory Results
04/02/25
06:01
WBC 9.2
Hgb 8.9 L
Hct 28.7 L
Plt Count 285
Sodium 135
Potassium 3.7
Chloride 88 L
Carbon Dioxide 39 H
BUN 42 H
Creatinine 0.8
Glucose 124 H
Calcium 8.4
Total Bilirubin 0.6
AST 74 H
ALT 57 H
Alkaline Phosphatase 773 H
Vital Signs:
Vital Signs
Temp Pulse Resp BP Pulse Ox
98.4 F 90 20 113/53 100
04/02/25 10:30 04/02/25 10:30 04/02/25 10:30 04/02/25 10:30 04/02/25 11:32
I&O
04/01/25 04/02/25 04/03/25
06:59 06:59 06:59
Intake Total 120 / 120 960 / 960
Output Total 3400 / 3400 3350 / 3350
Balance -3280 / -3280 -2390 / -2390
Physical Exam
-
General: No Apparent Distress
HEENT: Normocephalic and Atraumatic
Respiratory: Negative Wheezes
Cardiac: Regular Rhythm
Genito-urinary: No Costovertebral Tender
Neuro: AO x 3
Psych: Calm
Data Reviewed
-
Total Time Spent with Patient (in minutes): 51
Labs: Labs Reviewed by me
[2025-04-02 12:02] LABS: Glucose - Point of Care 184 mg/dl (70-99)
--- NOTE | 2025-04-02 12:21 | W.PN.CARDCBS ---
Addendum entered and electronically signed by Yosef Carter MD 04/02/25 13:08:
I saw and examined the patient.
The CHIP SILO TENDER or PA's note was reviewed and I agree with the note.
Comment: General: Well developed, well nourished in NAD.
Neck: Supple, no JVD, HJR, carotids +2 B/L, no bruits bilaterally.
Heart: Non displaced PMI, RRR, no murmurs, No S3, S4, no rubs.
Lungs: Scattered rhonchi
Extremities: No clubbing, cyanosis or edema bilaterally.
Neuro: Grossly nonfocal, awake, alert and oriented x3.
He is diuresing well with metolazone. Will continue IV Lasix and metolazone. Will replete potassium. Follow QTc on amiodarone. Of note he is chronically on 3 L and is on 3 L currently. Will need home O2. He is declining rehab but likely will
need to go to rehab
Original Note:
Today's Communication / Plan
-
continue IV lasix with metolazone.
replete K
follow QTc, improving on amiodarone 200mg daily
Impression / Plan
-
Primary Machine Ceramic Coater: Dr. Carter
Assessment:
Presentation with SOB, 03/28/2025
Acute on chronic HFpEF, proBNP 5960
Paroxysmal atrial fibrillation with RVR
Initially diagnosed 11/14/2024 and spontaneously converted to SR
Chronic Eliquis OAC
CAD
s/p 2.25 mm and 2.5 mm Medtronic [place] THOMAS to distal to apical LAD 06/12/24
Metastatic prostate cancer
Hyperlipidemia, LDL 195
DM2
Prior interstitial pneumonitis, felt to be improved
Depression/anxiety
ECHO 01/30/25: EF 58.7%, no significant valvular disease
Plan:
-Admitted 03/28/2025 with HFpEF, acute on chronic as well as A-fib with RVR. ProBNP 5960
-Previously patient has been rate controlled for atrial fibrillation given history of interstitial pneumonitis and concern for ILD there has been some hesitation for amiodarone. On review of prior pulmonary notes as well as CXR and Chest CT from
01/2025 admission, appears that interstitial pneumonitis felt to be improved/resolved without evidence of ILD. Discussed with pulmonary 03/28/25 and they are okay with initiation of amiodarone for paroxysmal A-fib. started on amio 03/28/25, converted
to SR same day. amio dose has been reduced due to prolonged QTc (also chronically on sertraline 50mg daily) to 200mg daily. QTc improving by EKG 04/02 by my review
-continue toprol 25mg BID, jardiance, spironolactone.
-continue eliquis
-now responding to IV lasix 80mg BID with metolazone 5mg daily, continue. Cr stable
-replete K
-CHF education
-chronically on 3L NC at home and is on 3L now
-oncology notes reviewed, appropriate for hospice but not yet ready. plan for palliative care. he remains a full code at this time. continue GOC discussions per oncology
-d/w patient and at bedside. d/w nursing. d/w hospitalist
Progress Note - Machine Ceramic Coater
Subjective
Date of Service: April 02, 2025
reports good urine output overnight. no CP
Objective
Labs:
04/02/25 06:01
04/02/25 06:01
Labs
Hgb 8.9 g/dL (13.0-18.0) L 04/02/25 06:01
Hct 28.7 % (39.0-52.0) L 04/02/25 06:01
Plt Count 285 10^3/uL (130-400) 04/02/25 06:01
Sodium 135 mmol/L (135-145) 04/02/25 06:01
Potassium 3.7 mmol/L (3.5-5.1) 04/02/25 06:01
BUN 42 mg/dl (9-20) H 04/02/25 06:01
Creatinine 0.8 mg/dL (0.7-1.3) 04/02/25 06:01
Glucose 124 mg/dl (70-99) H 04/02/25 06:01
Vital Signs and I&O:
Vital Signs
Temp Pulse Resp BP Pulse Ox
98.4 F 90 20 113/53 100
04/02/25 10:30 04/02/25 10:30 04/02/25 10:30 04/02/25 10:30 04/02/25 11:32
Vital Signs
Temp Pulse Resp BP Pulse Ox
98.4 F 90 20 113/53 100
04/02/25 10:30 04/02/25 10:30 04/02/25 10:30 04/02/25 10:30 04/02/25 11:32
Intake & Output
03/31/25 04/01/25 04/02/25 04/03/25
07:59 07:59 07:59 07:59
Intake Total 480 / 480 120 / 120 960 / 960
Output Total 3550 / 3550 3400 / 3400 3350 / 3350
Balance -3070 / -3070 -3280 / -3280 -2390 / -2390
Physical Exam
Physical Exam
GEN: No distress, awake, alert, oriented x3. on supp O2
HEENT: supple, anicteric, mmm, eomi
LUNGS: CTA B/L, no wheezes/rales
CV: Reg, S1/S2, no murmur
ABD: soft, BS+, NT/ND
EXT: No cyanosis, clubbing. 1+ edema of B/L LE, with boots in place
NEURO: Gross non-focal
SKIN: Warm, pink, dry. No rash.
[2025-04-02] MEDS: KCL 40 MEQ PO (13:09)
[2025-04-02] MEDS: ZAROXOLYN 5 MG PO (16:35)
[2025-04-02 17:32] LABS: Glucose - Point of Care 197 mg/dl (70-99)
[2025-04-02] MEDS: NOVOLOG FLEXPEN-LOW RESISTANCE 6 UNITS SC (17:35)
[2025-04-02] MEDS: ZOLOFT 50 MG PO (17:39)
[2025-04-02] MEDS: STERILE WATER FOR INJECTION 10 ML IV (17:39)
[2025-04-02] MEDS: ROCEPHIN 1000 MG IV (17:39)
[2025-04-02] MEDS: LIPITOR 80 MG PO (17:39)
[2025-04-02 17:43] LABS: Glucose - Point of Care 185 mg/dl (70-99)
[2025-04-02] MEDS: LANTUS 0.14 UNITS SC (17:49)
[2025-04-02 21:38] LABS: Glucose - Point of Care 235 mg/dl (70-99)
[2025-04-03 03:10] VITALS: BP 125/57
[2025-04-03 05:20] VITALS: BMI 28.1
[2025-04-03 07:00] VITALS: BP 130/60
[2025-04-03 07:07] LABS: Glucose - Point of Care 151 mg/dl (70-99)
[2025-04-03] MEDS: NOVOLOG FLEXPEN 6 UNITS SC ×2 (07:58→12:02)
[2025-04-03] MEDS: LASIX 80 MG IV (07:59)
[2025-04-03] MEDS: NOVOLOG FLEXPEN-LOW RESISTANCE 1 UNITS SC (07:59)
[2025-04-03] MEDS: PROTONIX 40 MG PO (08:00)
[2025-04-03] MEDS: TYLENOL 1000 MG PO (08:00)
[2025-04-03] MEDS: PACERONE 200 MG PO (08:00)
[2025-04-03] MEDS: ELIQUIS 5 MG PO (08:00)
[2025-04-03] MEDS: FARXIGA 10 MG PO (08:01)
[2025-04-03] MEDS: IMODIUM 4 MG PO (08:01)
[2025-04-03] MEDS: DELTASONE 5 MG PO (08:01)
[2025-04-03] MEDS: MS CONTIN (EXTENDED RELEASE) 30 MG PO (08:01)
[2025-04-03] MEDS: ALDACTONE 12.5 MG PO (08:01)
[2025-04-03] MEDS: TOPROL XL 25 MG PO (08:01)
[2025-04-03] MEDS: DESENEX/MITRAZOL/ZEASORB 1 APPLIC TOPICAL (08:02)
[2025-04-03 08:30] LABS: Hematocrit 28.0 % (39.0-52.0); Hemoglobin 8.7 g/dL (13.0-18.0); Mean Corp Hgb Conc. 31.1 g/dL (33.0-37.0); Mean Corpuscular Volume 80.0 fL (80.0-94.0); Platelet Count 293 10^3/uL (130-400); Red Cell Dist. Width 25.0 % (11.5-14.5)
[2025-04-03 09:24] LABS: ALT (SGPT) 64 U/L (0-50); AST (SGOT) 88 U/L (17-59); Albumin 3.1 g/dl (3.5-5.0); Alkaline Phosphatase 783 U/L (38-126); Blood Urea Nitrogen 43 mg/dl (9-20); Calcium 8.4 mg/dl (8.4-10.2); Carbon Dioxide 38 mmol/L (22-30); Chloride 86 mmol/L (98-107); Estimated Creatinine Clearance 81 ml/min; Glucose 133 mg/dl (70-99); Potassium 3.7 mmol/L (3.5-5.1); Sodium 132 mmol/L (135-145); Total Protein 6.0 g/dl (6.3-8.2); eGFR > 60.00
[2025-04-03 11:00] VITALS: BP 131/60
--- NOTE | 2025-04-03 11:33 | W.PN.CARDCBS ---
Addendum entered and electronically signed by Leroy Bonilla MD 04/03/25 18:07:
I saw and examined the patient.
The Teletypesetter Monitor's note was reviewed and I agree with the note.
Comment: Briefly, 84-year-old man past medical history of heart failure preserved ejection fraction and widely metastatic prostate cancer who presents in acute decompensated heart failure
Received IV Lasix twice daily as well as metolazone to augment diuresis
Seems to be nearing euvolemia on exam and O2 requirement is at baseline 3 L nasal cannula
Plan to discharge on 80 mg Lasix p.o. twice daily with metolazone twice weekly
Continue Jardiance and spironolactone
Repeat BMP in 1 week
Stable for discharge from my perspective, outpatient follow-up has been arranged
Original Note:
Today's Communication / Plan
-
transition to po lasix 80mg BID with zaroxolyn 5mg MoFr
BMP/proBNP in 1 week
amiodarone 200mg daily
eliquis 5mg BID
continue toprol, jardiance, spironolactone
OP cardiac follow up arranged
Impression / Plan
-
Primary Electronic Scale Assembler And Tester: Dr. Carter
Assessment:
Presentation with SOB, 03/28/2025
Acute on chronic HFpEF, proBNP 5960
Paroxysmal atrial fibrillation with RVR
Initially diagnosed 11/14/2024 and spontaneously converted to SR
Chronic Eliquis OAC
CAD
s/p 2.25 mm and 2.5 mm [employer] [place] THOMAS to distal to apical LAD 06/12/24
Metastatic prostate cancer
Hyperlipidemia, LDL 195
DM2
Prior interstitial pneumonitis, felt to be improved
Depression/anxiety
ECHO 01/30/25: EF 58.7%, no significant valvular disease
Plan:
-Admitted 03/28/2025 with HFpEF, acute on chronic as well as A-fib with RVR. ProBNP 5960
-Previously patient has been rate controlled for atrial fibrillation given history of interstitial pneumonitis and concern for ILD there has been some hesitation for amiodarone. On review Chest CT from 01/2025 admission, appears that interstitial
pneumonitis felt to be improved/resolved without evidence of ILD. Discussed with pulmonary 03/28/25 and they were okay with initiation of amiodarone for paroxysmal A-fib. started on amio 03/28/25, converted to SR same day. amio dose has been reduced
due to prolonged QTc (also chronically on sertraline 50mg daily) to 200mg daily.
-continue toprol 25mg BID, jardiance, spironolactone.
-continue eliquis
-responded to IV lasix 80mg BID with metolazone 5mg daily. weight this morning suspected inaccurate as up 3 pounds despite negative I&Os. Cr stable. will plan to DC on po lasix 80mg BID with metolazone 5mg MoFr upon DC
-follow hyponatremia
-BMP/proBNP in 1 week
-CHF education
-chronically on 3L NC at home and is on 3L now
-oncology notes reviewed, appropriate for hospice but not yet ready. plan for palliative care. he remains a full code at this time. continue GOC discussions per oncology
-OP cardiac follow up arranged
-d/w hospitalist, for possible DC today
Progress Note - Electronic Scale Assembler And Tester
Subjective
Date of Service: April 03, 2025
reports remains with some dyspnea on exertion
Objective
Labs:
04/03/25 05:53
04/03/25 05:53
Labs
Hgb 8.7 g/dL (13.0-18.0) L 04/03/25 05:53
Hct 28.0 % (39.0-52.0) L 04/03/25 05:53
Plt Count 293 10^3/uL (130-400) 04/03/25 05:53
Sodium 132 mmol/L (135-145) L 04/03/25 05:53
Potassium 3.7 mmol/L (3.5-5.1) 04/03/25 05:53
BUN 43 mg/dl (9-20) H 04/03/25 05:53
Creatinine 0.8 mg/dL (0.7-1.3) 04/03/25 05:53
Glucose 133 mg/dl (70-99) H 04/03/25 05:53
Vital Signs and I&O:
Vital Signs
Temp Pulse Resp BP Pulse Ox
98.1 F 89 16 130/60 97
04/03/25 07:00 04/03/25 07:00 04/03/25 07:00 04/03/25 07:00 04/03/25 07:00
Vital Signs
Temp Pulse Resp BP Pulse Ox
98.1 F 89 16 130/60 97
04/03/25 07:00 04/03/25 07:00 04/03/25 07:00 04/03/25 07:00 04/03/25 07:00
Intake & Output
04/01/25 04/02/25 04/03/25 04/04/25
07:59 07:59 07:59 07:59
Intake Total 120 / 120 960 / 960 960 / 960
Output Total 3400 / 3400 3350 / 3350 3150 / 3150
Balance -3280 / -3280 -2390 / -2390 -2190 / -2190
Physical Exam
Physical Exam
GEN: No distress, awake, alert, oriented x3. on supp O2
HEENT: supple, anicteric, mmm, eomi
LUNGS: CTA B/L, no wheezes/rales
CV: Reg, S1/S2, no murmur
ABD: soft, BS+, NT/ND
EXT: No cyanosis, clubbing. trace edema of B/L LE
NEURO: Gross non-focal
SKIN: Warm, pink, dry. No rash.
--- NOTE | 2025-04-03 11:44 | W.PN.HOSP.TC ---
Today's Communication/Plan
-
dc to home/VN
Assessment / Plan
Assessment / Plan
84-year-old male p/w acute on chronic shortness of breath and palpitation.
He is compliant with his medications and denies any new medications.
In the ED, he was found to be in A fib RVR with mild CHF.
Assessment:
Acute on chronic HFpEF
- s/p IV Lasix course. Await cardiology recs for dc today
- OP [facility]iology follow-up appointment
Parox A. fib with RVR POA
- s/p Cardizem drip
- now in NSR; continue Amiodarone. Continue Toprol XL. Continue Eliquis
- OP [facility]iology follow-up appointment
Elevated LFTs - mild - in setting of passive congestion
- follow LFTs
Nonischemic myocardial injury
CAD hx of stenting 2023
- continue statin/BB
Chronic hypoxic respiratory failure on 3L NC
- CT: Small bilateral pleural effusions, widespread osteoblastic metastasis
- monitor O2 needs
Chronic compression fracture of the T3 vertebral body
Chronic anemia
- Hb 8.9
Hx of ILD
- OP f/u Dr. Rowley
- continue prednisone
Chronic urinary retention
- patient self-caths at home
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
History of rheumatic heart disease
Essential hypertension
- continue Norvasc/Toprol
Hyperlipidemia
- continue statin
Metastatic prostate carcinoma s/p Radical prostatectomy 2002
History of radiation treatment
- Off chemo
- Follows up with Dr. Mendez and Dr. Patterson
- There is talk of palliative care moving forward in outpatient setting, however pt remains a full code now
Chronic pain syndrome/chronic opioid dependence
- continue SOFTWARE ENGINEER ADVISOR Dilaudid, MS Contin, prednisone.
Depression
- continue sertraline
Obesity due to excess calories - current BMI 28
IDDM
- cont SOFTWARE ENGINEER ADVISOR insulin, Jardiance
- ISS coverage
DVT prophylaxis: Eliquis
Code: Full
More than 30 minutes spent in discharge including
Final examination of the patient
Summarizing hospital stay
Instructions for continuing care to all relevant caregivers
Preparation of discharge records, prescriptions, and referral forms
Total time spent (in minutes):41
Anticipated Discharge: Today
Subjective/Interval History
-
Date of Service: April 03, 2025
Objective Data
-
Labs:
Laboratory Results
04/03/25
05:53
WBC 9.5
Hgb 8.7 L
Hct 28.0 L
Plt Count 293
Sodium 132 L
Potassium 3.7
Chloride 86 L
Carbon Dioxide 38 H
BUN 43 H
Creatinine 0.8
Glucose 133 H
Calcium 8.4
Total Bilirubin 0.5
AST 88 H
ALT 64 H
Alkaline Phosphatase 783 H
Vital Signs:
Vital Signs
Temp Pulse Resp BP Pulse Ox
98.1 F 89 16 130/60 97
04/03/25 07:00 04/03/25 07:00 04/03/25 07:00 04/03/25 07:00 04/03/25 07:00
I&O
04/02/25 04/03/25 04/04/25
06:59 06:59 06:59
Intake Total 960 / 960 960 / 960
Output Total 3350 / 3350 3150 / 3150
Balance -2390 / -2390 -2190 / -2190
[2025-04-03 11:55] LABS: Glucose - Point of Care 272 mg/dl (70-99)
[2025-04-03] MEDS: NOVOLOG FLEXPEN-LOW RESISTANCE 3 UNITS SC (12:03)
--- NOTE | 2025-04-03 12:08 | CM ---
Chart reviewed. Patient will d/c home today
Hospitalist provided update to daughter in law as requested
PT to issue RW prior to d/c, rx provided by hospitalist
Patient will need ambulance transport home
Updated [facility] of patient's d/c to resume aide services. [facility] referral sent to resume PT services
IMM verbally reviewed, copy on chart
[facility]

[facility]
-------> PLEASE FAX D/C SUMMARY AND INSTRUCTIONS
Plan: Home, MISHEL w/ [facility] (AIDES) and M[facility] (PT)
--- NOTE | 2025-04-03 12:58 | W.DS.TRANS ---
DC Summary - Home Worker
-
Discharge Instructions:
Discharge Diagnosis/Procedures Acute CHF, afib. CAUTI
Diet 2 Gram Sodium,Low Cholesterol
Activity As tolerated
Blood Work BMP/proBNP in 1 week
Other Services VN,PT,OT
Specialty Instructions Weigh Daily
Instructions: *[facility] Heart Failure Instructions
Stand-Alone Forms:
Changes to Home Medications: Yes
Discharge Medications:
DC Medications w/original date entered in Closely
acetaminophen 500 mg tablet (Tylenol Extra Strength) 1,000 mg PO BID mild Pain 07/29/24
therapeutic multivitamin 1 tab PO DAILY Supplement 07/29/24
prochlorperazine maleate 10 mg tablet 10 mg PO Q6HPRN PRN nausea 08/18/24
sertraline 50 mg tablet 50 mg PO QPM depression/anxiety ##0 08/18/24
calcium 500 mg (as carbonate)-vitamin D3 10 mcg (400 unit) tablet (Calcium 500 + D) 2 tab PO BID Supplement 11/14/24
hydromorphone 2 mg tablet 2 mg PO Q4HPRN PRN Breakthrough pain 11/14/24
morphine 30 mg immediate release tablet 30 mg PO BID Pain 11/14/24
apixaban 5 mg tablet (Eliquis) 5 mg PO BID #60 tabs 11/25/24
colestipol 1 gram tablet 1 g PO BID Antilipemic Agent, 01/29/25
loperamide 2 mg tablet 4 mg PO BID 01/29/25
prednisone 10 mg tablet 5 mg PO BID 01/29/25
empagliflozin 10 mg tablet (Jardiance) 10 mg PO DAILY #30 tabs 02/04/25
albuterol sulfate 2.5 mg/3 mL (0.083 %) solution for nebulization 2.5 mg inhalation R TID Lung/Breathing Issues 03/28/25
atorvastatin 80 mg tablet 80 mg PO QPM High Cholesterol 03/28/25
insulin aspart U-100 100 unit/mL (3 mL) subcutaneous pen 6 sliding scale dose SC AC 03/28/25
insulin glargine 100 unit/mL (3 mL) subcutaneous pen (Lantus Solostar U-100 Insulin) 14 unit SC QPM 03/28/25
pantoprazole 40 mg tablet,delayed release 40 mg PO DAILY 03/28/25
amiodarone 200 mg tablet (Pacerone) 200 mg PO DAILY #30 tabs 04/03/25
cefdinir 300 mg capsule 300 mg PO BID #22 caps 04/03/25
furosemide 80 mg tablet 80 mg PO BID@0800,1600 #60 tabs 04/03/25
metolazone 5 mg tablet 5 mg PO DIRECTED #30 tabs 04/03/25
metoprolol succinate 25 mg tablet,extended release 24 hr 25 mg PO BID #60 tabs 04/03/25
spironolactone 25 mg tablet 12.5 mg (1/2 x 25 mg) PO DAILY #30 tabs 04/03/25
Home Medication Changes
Amlodipine/Cardizem stopped. Amiodarone and Aldactone started.
Pending Results: No
Total time spent discharging patient (in min): 42
[2025-04-03 15:00] VITALS: BP 120/75
--- NOTE | 2025-04-04 09:47 | W.HF.CON ---
Heart Failure
- LV Function
Left ventricular function study result: LV Ejection fraction >/= 50% (ECHO 01/30/25)
Ejection Fraction Percentage: 58.7
- ARNI
Patient already on ARNI: No
Heart Failure ARNI Not Indicated: LV Ejection Fraction >/= 40%
- ACEI/ARB
Patient already on ACEI/ARB: No
Heart Failure ACEI/ARB Not Indicated: LV Ejection Fraction > 40%
- Beta Dilcia
Patient already on Evidence Based Beta Dilcia: Yes
- Mineralocorticord Receptor Antagonist
Patient already on MRA: Yes
- SGLT-2 Inhibitor
Patient already on SGLT-2 Inhibitor: Yes
- Afib Anticoagulation
Patient already on Anticoagulation for Afib: Yes
- NYHA CHF Classification
NYHA CHF Classification Level: Class III - Symptoms w/ min exertion, interferes w/ nml daily activity (metastatic prostate cancer)
- ACC/AHA Stage
ACC/AHA Stage: Stage C: Symptomatic Heart Failure
== END 2025-04-03 17:11 | disposition home health service (06) | DRG 291 ==
LOC: 4 WEST ACU 13:02
PROVIDERS: ADMITTING PHYSICIAN Internal Medicine; ATTENDING PHYSICIAN Internal Medicine; EMERGENCY PHYSICIAN Emergency Medicine; FAMILY PHYSICIAN Family Medicine; OTHER PHYSICIAN Internal Medicine Cardiovascular Disease; OTHER PHYSICIAN Internal Medicine Hematology & Oncology
DX: I11.0 Hypertensive heart disease with heart failure (principal); I50.33 Acute on chronic diastolic (congestive) heart failure; N39.0 Urinary tract infection, site not specified; T83.518A Infection and inflammatory reaction due to other urinary catheter, initial encounter; J96.11 Chronic respiratory failure with hypoxia; M48.54XA Collapsed vertebra, not elsewhere classified, thoracic region, initial encounter for fracture; J84.9 Interstitial pulmonary disease, unspecified; Z16.24 Resistance to multiple antibiotics; C79.51 Secondary malignant neoplasm of bone; F11.20 Opioid dependence, uncomplicated; I48.0 Paroxysmal atrial fibrillation; I5A Non-ischemic myocardial injury (non-traumatic); I25.10 Atherosclerotic heart disease of native coronary artery without angina pectoris; D64.9 Anemia, unspecified; B96.20 Unspecified Escherichia coli [E. coli] as the cause of diseases classified elsewhere; Y84.6 Urinary catheterization as the cause of abnormal reaction of the patient, or of later complication, without mention of misadventure at the time of the procedure; E78.00 Pure hypercholesterolemia, unspecified; Z92.3 Personal history of irradiation; Z90.79 Acquired absence of other genital organ(s); G89.4 Chronic pain syndrome; F32.A Depression, unspecified; E66.09 Other obesity due to excess calories; Z68.28 Body mass index [BMI] 28.0-28.9, adult; E11.9 Type 2 diabetes mellitus without complications; Z79.4 Long term (current) use of insulin; C61 Malignant neoplasm of prostate; F41.9 Anxiety disorder, unspecified; G89.3 Neoplasm related pain (acute) (chronic); Z99.81 Dependence on supplemental oxygen; K76.1 Chronic passive congestion of liver; Z79.01 Long term (current) use of anticoagulants; Z79.84 Long term (current) use of oral hypoglycemic drugs; Z79.899 Other long term (current) drug therapy; Z95.5 Presence of coronary angioplasty implant and graft; Z11.52 Encounter for screening for COVID-19
CPT/HCPCS: 51701; 71046; 71275; 74230; 80048; 80053; 81003; 81015; 82248; 82728; 82962; 83036; 83550; 83735; 83880; 84153; 84154; 84484; 85025; 85027; 85045; 87040; 87077; 87086; 87186; 87502; 87811; 92610; 92611; 93005; 94640; 96365; 96366; 96375; 97163; 97530; 99285; Q9967

== ENCOUNTER 2025-04-16 15:31 | Inpatient (IN) | payer MEDICARE, OTHER, SELFPAY ==
[2025-04-16] VITALS (11 sets, daily range): BP systolic 97–137; BP diastolic 49–75; BMI 27.2
--- NOTE | 2025-04-16 10:55 | ED.GENMED ---
History of Present Illness
General
Chief Complaint: Breathing Problem
Source: ambulance crew
Time Seen by Provider: 04/16/25 10:53
Nursing documentation reviewed up to this point in time: agreed with
History of Present Illness
History of Present Illness:
Patient is an 84-year-old male with past medical history of A-fib CHF CAD with stent hypertension hyperlipidemia metastatic prostate cancer(on palliative care), chronic pain syndrome on chronic narcotics on 3 L of oxygen normally brought by EMS.
Family called EMS for difficulty breathing. No prior records patient was just discharged April 03 when he presented with shortness of breath and palpitations and was found to be in A-fib and heart failure. He did receive IV Lasix at that time and
was discharged on metolazone twice weekly.
During previous admission he was discharged home with visiting nurses and palliative care he opted for palliative care instead of hospice at that time.
Patient's significant other, is present with patient reports for the past weeks patient has been declining eating and drinking less very tired and sleepy. He is on chronic pain medication. He currently lives at home with his son and
[id number] who are managing his care.
Patient is awake alert he is able to state his name he is aware of place he is confused to month.
Past History
Past History
ED Past Medical History: Cancer (Prostate cancer with widespread metastatic disease), HTN, Hypercholesterolemia and Other (Rheumatic heart disease, A-fib, CHF, chronic hypoxia O2 dependent, urinary retention, prostates CA, CAD)
ED Past Surgical History: Orthopedic and Urological
Social History
Tobacco: Non-smoker
Alcohol: None
Personal:
Living: alone
Employment: Retired
Family History
Family History: Other (Noncontributory)
Phy Exam
General Physical Exam
General Presentation: no apparent distress
General age: appears stated age
General Skin: warm and dry
General Habitus: elderly
General Mental: alert
General Hydration: dry mucous membranes
Cardiovascular Exam
Cardiovascular Exam: regular rate/rhythm, no murmur and normal peripheral pulses
Pulmonary Exam
Pulmonary Exam: lungs clear and no respiratory distress
Neurological Exam
Neurological Exam: alert and other (alert but sleepy )
Musculoskeletal Exam
Musculoskeletal Exam: full ROM
Skin Exam
Skin Exam: normal color and warm/dry
Psychiatric Exam
Psychiatric Exam: normal mood/affect
Scores
Heart Failure Risk
Heart Failure Risk Score: Not Applicable
Course
Orders/Labs/Results
Orders:
Orders
04/16/25 11:38
Electrocardiogram (*1) Stat
Reason for Study: Other
Other Reason for Exam: chest pain
Cardiac Monitoring- Treatment ONCE
EKG- Treatment ONCE
CR Chest Single View Urgent
Reason For Exam: sob
04/16/25 11:49
Complete Blood Count/With Diff Urgent
Comprehensive Metabolic Panel Urgent
Troponin I Urgent
Abnormal Lab Results
04/16/25
11:49
RBC 3.26 L 10^6/uL
(4.70-6.10)
Hgb 8.0 L g/dL
(13.0-18.0)
Hct 27.5 L %
(39.0-52.0)
MCH 24.5 L pg
(27.0-31.0)
MCHC 29.1 L g/dL
(33.0-37.0)
RDW 24.6 H %
(11.5-14.5)
Abs Immat Gran (auto) 0.4 H 10^3/uL
(0-0.05)
Absolute Neuts (auto) 8.2 H 10^3/uL
(1.4-6.5)
Absolute Lymphs (auto) 0.8 L 10^3/uL
(1.2-3.4)
Absolute Monos (auto) 0.7 H 10^3/uL
(0.1-0.6)
Immature Gran % 3.5 H %
(0-0.5)
Neutrophils % 80.6 H %
(42.2-75.2)
Lymphocytes % 8.0 L %
(20.5-51.1)
Sodium 126 L mmol/L
(135-145)
Potassium 3.4 L mmol/L
(3.5-5.1)
Chloride 85 L mmol/L
(98-107)
Carbon Dioxide 37 H mmol/L
(22-30)
BUN 56 H mg/dl
(9-20)
Glucose 113 H mg/dl
(70-99)
AST 77 H U/L
(17-59)
Alkaline Phosphatase 761 H U/L
(38-126)
Troponin I 0.131 H* ng/ml
Total Protein 6.0 L g/dl
(6.3-8.2)
Albumin 3.0 L g/dl
(3.5-5.0)
04/16/25 11:49
04/16/25 11:49
Vital Signs
Initial and Last Documented VS:
Initial Vital Signs
Pulse Resp BP Pulse Ox
82 26 135/56 100
04/16/25 11:00 04/16/25 11:00 04/16/25 11:00 04/16/25 11:00
Last Documented Vital Signs
Temp Pulse Resp BP Pulse Ox
98.2 F 85 20 119/56 100
04/16/25 11:01 04/16/25 14:15 04/16/25 14:15 04/16/25 13:00 04/16/25 12:45
MDM/Problems Addressed
Differential Diagnosis Includes:
Not limited metastatic cancer, failure to thrive
MDM/Problems Addressed:
Patient is an 84-year-old with metastatic prostate cancer sent for shortness of breath. Patient is awake alert previous admission patient did not want hospice however patient stating that he' wants to go home and be with the Lord.' Pt's
significant other is at bedside case management consulted.
Patient is very sleepy here. He is afebrile with a normal white count hemoglobin is 8.0 which is baseline. He is dehydrated with a low sodium of 126 and elevated BUN of 56. Minimally elevated troponin no chest pain.
Patient was eval by case management who will arrange hospice however hospice cannot be arranged today at home patient will require admission for care to this can be arranged. Family remains at bedside. Case discussed admitting hospitalist
*Pulse Oximetry
Patient hypoxic: no
*Critical Care Note
Total Time (30-74mins, 75-104mins- exclusive of procedures): Not Applicable
ED Attending Note
-
Portions of this chart may have been created with voice recognition software.� Occasional wrong word or��sound alike� substitutions may have occurred due to the inherent limitations of voice recognition software.
Discharge Plan
Departure
Patient Disposition: Admit
Date of Disposition: 04/16/25
Time of Disposition: 14:21
Admit to: Med/Surg
Admit to doctor: hospitalist
Presentation/result/management discussed w/ accepting MD/DO: Hospitalist
Patient with high blood pressure during this ER visit?: Yes
Condition: Fair
Covid-19: Not Applicable
Discharge Problem:
shortness of breath, Anemia, Acute hyponatremia
Prescriptions:
No Action
therapeutic multivitamin Tablet
1 tab PO DAILY
acetaminophen [Tylenol Extra Strength] 500 mg tablet
1,000 mg PO BID
prochlorperazine maleate 10 mg Tablet
10 mg PO Q6HPRN PRN (Reason: nausea)
sertraline 50 mg Tablet
50 mg PO QPM Qty: 0
morphine 30 mg tablet
30 mg PO BID
calcium carbonate-vitamin D3 [Calcium 500 + D] 500 mg-10 mcg (400 unit) Tablet
2 tab PO BID
hydromorphone 2 mg tablet
2 mg PO Q4HPRN PRN (Reason: Breakthrough pain)
Eliquis 5 mg Tablet
5 mg PO BID Qty: 60 0RF
loperamide 2 mg Tablet
4 mg PO BID
colestipol 1 gram Tablet
1 g PO BID
prednisone 10 mg tablet
5 mg PO BID
Jardiance 10 mg tablet
10 mg PO DAILY Qty: 30 11RF
albuterol sulfate 2.5 mg /3 mL (0.083 %) Solution For Nebulization
2.5 mg INHALATION R TID
atorvastatin 80 mg tablet
80 mg PO QPM
insulin aspart U-100 100 unit/mL (3 mL) insulin pen
6 sliding scale dose SC AC
insulin glargine [Lantus Solostar U-100 Insulin] 100 unit/mL (3 mL) insulin pen
14 unit SC QPM
pantoprazole 40 mg tablet,delayed release (DR/EC)
40 mg PO DAILY
cefdinir 300 mg capsule
300 mg PO BID Qty: 22 0RF
Rx Instructions:
starting 10/9 AM
amiodarone [Pacerone] 200 mg Tablet
200 mg PO DAILY Qty: 30 0RF
spironolactone 25 mg Tablet
12.5 mg PO DAILY Qty: 30 0RF
metolazone 5 mg tablet
5 mg PO DIRECTED Qty: 30 0RF
Rx Instructions:
take on Tuesday and weekly
furosemide 80 mg Tablet
80 mg PO BID@0800,1600 Qty: 60 0RF
metoprolol succinate 25 mg Tablet Extended Release 24 Hr
25 mg PO BID Qty: 60 0RF
Referrals:
UNKNOWN,NO INTERVIEW [Family Provider]
Interventions
Interventions:
*Risk Screen - Suicide Last Done: 04/16/25 11:01
*General Assessment Last Done: 04/16/25 11:01
*Neglect/Abuse Screening Last Done: 04/16/25 11:01
*ED COVID-19 Vaccine History Last Done: 04/16/25 11:01
*ED Influenza Vaccine History Last Done: 04/16/25 11:01
ED- Cardiac Assessment Last Done: 04/16/25 11:13
ED- Pulmonary Assessment Last Done: 04/16/25 11:13
Discharge Date and Time
Print Language: AMHARIC
[2025-04-16 12:23] LABS: Hematocrit 27.5 % (39.0-52.0); Hemoglobin 8.0 g/dL (13.0-18.0); Mean Corp Hgb Conc. 29.1 g/dL (33.0-37.0); Mean Corpuscular Volume 84.4 fL (80.0-94.0); Nucleated Red Blood Cells % 2.7 % (-); Platelet Count 297 10^3/uL (130-400); Red Cell Dist. Width 24.6 % (11.5-14.5)
[2025-04-16 12:43] LABS: ALT (SGPT) 27 U/L (0-50); AST (SGOT) 77 U/L (17-59); Albumin 3.0 g/dl (3.5-5.0); Alkaline Phosphatase 761 U/L (38-126); Blood Urea Nitrogen 56 mg/dl (9-20); Calcium 8.7 mg/dl (8.4-10.2); Carbon Dioxide 37 mmol/L (22-30); Chloride 85 mmol/L (98-107); Estimated Creatinine Clearance 65 ml/min; Glucose 113 mg/dl (70-99); Potassium 3.4 mmol/L (3.5-5.1); Sodium 126 mmol/L (135-145); Total Protein 6.0 g/dl (6.3-8.2); eGFR > 60.00
[2025-04-16 12:49] LABS: Troponin I 0.131 ng/ml
[2025-04-16 13:36] LABS: Anisocytosis 1+; Normal RBC Morphology No
[2025-04-16 13:37] LABS: Acanthocytes Slight; Hypochromasia 1+; Ovalocytes Slight
--- NOTE | 2025-04-16 13:45 | CM ---
Asked to speak with pt by ED SPORTS STATISTICIAN regarding hospice services. Chart reviewed, I met with pt and his SO Kaylee at bedside in ED.
Pt is interested in hospice, went home 04/03 with Palliative Care.
Pt lives with his son Brandyn and DIL Sean, Kaylee asked me to call Sean. I called and spoke to her, she would like her , pt's son Brandyn to participate in hospice discussion.
They live in 2 story home, [facility] but they have 2 ramps. Pt stays on first floor, had bedroom and full bath. Per Sean pt has been bedbound since last admission. Has [facility] and [facility] for [facility].
They are agreeable to Hospice referral. Per Sean, Hospice cared for her mother who in August, they were very happy with their services.
Sean is interested in Home hospice, they have equipment from [facility] bed, trapeze, nebulizer, home O2 and wheelchair which would need to be switched out before he is sent home.
Referral sent via [facility] and TT sent to Yasmin, received TT back from Jenna in Hospice, she is not on site but will reach out to Sean to discuss hospice.
--- NOTE | 2025-04-16 14:11 | HOSPNOTE ---
Hospice referral received. Spoke to [facility]. They would like to meet us at 9-930 tomorrow morning to review hospice with patient, significant other,and family and then arrange for equipment delivery tomorrow and plan to admit patient to hospice at
[facility] . CM and CLAIMS CORRESPONDENCE CLERK updated. More information to follow.
--- NOTE | 2025-04-16 14:26 | HPS.HSE ---
Addendum entered and electronically signed by Holden Burnett MD 04/16/25 15:42:
This is an addendum to H&P written by Ofelia Russell on 04/16/2025. �Patient seen and examined independently with MILLER HELPER.
84-year-old male past medical history of metastatic prostate cancer status post radical prostatectomy with osseous metastatic disease, chronic HFpEF, paroxysmal atrial fibrillation, CAD, chronic hypoxic respiratory insufficiency on 3 L oxygen, T3
compression fracture, chronic anemia, interstitial lung disease, chronic urinary with chronic Ballard catheter, rheumatic heart disease, hypertension, hyperlipidemia, chronic pain, depression, obesity, diabetes, presenting with decreasing eating and
drinking and ongoing lethargy and somnolence. �No chest pain. Ongoing shortness of breath.�
Patient was recently admitted from 03/28 to 04/03 for shortness of breath and palpitations. �Patient was diuresed and discharged on Toprol and amiodarone for atrial fibrillation. �Patient also had UTI from chronic Ballard catheter. �Patient opted for
palliative care instead of hospice at that time.
Vital signs unremarkable. Patient on baselline 3L O2.�
Labs show sodium 126. �Potassium 3.4. �Troponin 0.131. �Hemoglobin stable at 8. �EKG shows sinus rhythm with first-degree block, incomplete right bundle branch block present previously.
Chest x-ray shows no acute cardiopulmonary process.
manager dish spoke with family and patient and family now agreeable with home hospice which cannot be set up today.
Original Note:
Family Physician
-
Family Physician: NO INTERVIEW UNKNOWN
Chief Complaint
-
shortness of breath
History of Present Illness
Patient is a 84-year-old male with past medical history significant for HFpEF, hypertension, hyperlipidemia, IDDM, chronic hypoxic respiratory failure on 3L O2 and metastatic prostate cancer who presented to [facility] ED for evaluation of shortness of
breath. Patient is poor historian. Patients [id number] reports that patient this morning was complaining of difficulty breathing and has had decreased PO intake and increased lethargy since previous hospitalization for acute on chronic HFpEF
being discharged on . Denies any fever, chills, cough, chest pain, nausea, vomiting, constipation or urinary symptoms. Patient and family wish to keep patient comfortable and transition to hospice at home.
Medical History
Past Medical History
Past Medical History: Reports Other
Additional Past Medical History:
CAD s/p stent (05/2024)
HFpEF
HTN
HLD
IDDM
Chronic Hypoxic Resp Failure on 3L NC
Rheumatic Heart Disease
Metastatic Prostate Cancer
Past Surgical History: Reports Other
Additional Past Surgical History:
Coronary Stent x2
Prostatectomy (2003)
B/L Inguinal Hernia Repair
B/L THR
Social History
Tobacco: Non-smoker
Alcohol: None
Drug: None
Living: With Family
Family History
Family History: Not pertinent and Other (Mother with pancreatic Ca. Brother wtih Prostate Ca. Sister with Breast Ca. )
Allergies / Home Medications
Allergies reflects when Allergies were last updated in [employer].
Home Medications with original date entered in [employer]
Allergy/Medication List:
Allergies
Allergy/AdvReac Type Severity Reaction Status Date / Time
tetanus toxoid, adsorbed Allergy Hives Verified 11/14/24 16:19
Home Medications
metoprolol succinate 25 mg tablet,extended release 24 hr 25 mg PO BID #60 tabs 06/19/24
acetaminophen 500 mg tablet (Tylenol Extra Strength) 1,000 mg PO BID mild Pain 07/29/24
therapeutic multivitamin 1 tab PO DAILY Supplement 07/29/24
prochlorperazine maleate 10 mg tablet 10 mg PO Q6HPRN PRN nausea 08/18/24
sertraline 50 mg tablet 50 mg PO QPM depression/anxiety ##0 08/18/24
amlodipine 2.5 mg tablet 2.5 mg PO DAILY #0 tabs 08/22/24
calcium 500 mg (as carbonate)-vitamin D3 10 mcg (400 unit) tablet (Calcium 500 + D) 2 tab PO BID Supplement 11/14/24
hydromorphone 2 mg tablet 2 mg PO Q4HPRN PRN Breakthrough pain 11/14/24
morphine 30 mg immediate release tablet 30 mg PO BID Pain 11/14/24
apixaban 5 mg tablet (Eliquis) 5 mg PO BID #60 tabs 11/25/24
furosemide 80 mg tablet 80 mg PO BID@0800,1600 #60 tabs 11/25/24
colestipol 1 gram tablet 1 g PO BID 01/29/25
loperamide 2 mg tablet 4 mg PO BID 01/29/25
prednisone 10 mg tablet 5 mg PO BID 01/29/25
diltiazem HCl 180 mg capsule,extended release 24 hr 180 mg PO DAILY #30 caps 02/04/25
empagliflozin 10 mg tablet (Jardiance) 10 mg PO DAILY #30 tabs 02/04/25
albuterol sulfate 2.5 mg/3 mL (0.083 %) solution for nebulization 2.5 mg inhalation R TID 03/28/25
atorvastatin 80 mg tablet 80 mg PO QPM 03/28/25
insulin aspart U-100 100 unit/mL (3 mL) subcutaneous pen 6 sliding scale dose SC AC 03/28/25
insulin glargine 100 unit/mL (3 mL) subcutaneous pen (Lantus Solostar U-100 Insulin) 14 unit SC QPM 03/28/25
pantoprazole 40 mg tablet,delayed release 40 mg PO DAILY 03/28/25
Review of Systems
-
History Source: Patient and Family
Constitutional: Denies Fever or Chills
EENT: Denies Sore Throat
Respiratory: Reports Trouble Breathing (shortness of breath); Denies Cough
Cardiac: Denies Chest Pain, Diaphoresis, Palpitations or Syncope
Abdomen/GI: Denies Abdominal Pain, Nausea, Vomiting or Diarrhea
: Denies Dysuria, Frequency or Urgency
Musculoskeletal: Denies Joint Pain or Joint Swelling
Skin: Denies Rash
Neurological: Reports Weakness; Denies Dizzy, Headache or Numbness
Endocrine: Denies Polyuria or Polydipsia
Physical Exam
Vital Signs
Vital Signs
Temp Pulse Resp BP Pulse Ox
98.2 F 85 20 119/56 100
04/16/25 11:01 04/16/25 14:15 04/16/25 14:15 04/16/25 13:00 04/16/25 12:45
Physical Exam
General: Well Developed, Well Nourished, No Apparent Distress and Obese
HEENT: NormoCephalic, Moist mucous membranes and Nose Appears Normal
Respiratory: Wheezes, Non Labored Respirations and Decreased Breath Sounds
Cardiac: Regular Rhythm; No Murmur, Rub, Gallop or Peripheral Edema
GI: Soft, Non Tender and Normal Bowel Sounds
Musculoskeletal: No Clubbing, No Cyanosis and No Edema
Skin: IV/Catheter Site
Neuro: Sedated (wakes to verbal stimuli)
Psych: Calm
Laboratory Results
-
04/16/25 11:49
04/16/25 11:49
Laboratory Results
Total Bilirubin 0.8 mg/dl (0.2-1.3) 04/16/25 11:49
AST 77 U/L (17-59) H 04/16/25 11:49
ALT 27 U/L (0-50) 04/16/25 11:49
Alkaline Phosphatase 761 U/L (38-126) H 04/16/25 11:49
Troponin I 0.131 ng/ml H* 04/16/25 11:49
Data Reviewed
-
Diagnostic Radiology: Report Reviewed by me (CXR; No acute cardiopulmonary process. Chronic findings, as detailed above.)
Medical Tests (Nuc Med, Echo, EKG etc): Report Reviewed by me (EKG: SINUS RHYTHM WITH 1ST DEGREE A-V BLOCK LEFT AXIS DEVIATION INCOMPLETE RIGHT BUNDLE BRANCH BLOCK CANNOT RULE OUT ANTERIOR INFARCT , AGE UNDETERMINED)
Lab Data: Labs Reviewed by me (hgb 8.0, hct 27.5, Na+ 126, K+ 3.4, Chl 85, HCO3 37, BUN 56, Creat 1.0, AST 77, Alk Phos 761, trop 0.131)
Impression/Plan
-
IMPRESSION/PLAN:
#acute on chronic hypoxic respiratory failure 2/2 PNA vs. HFpEF
Patient and family wish to keep patient comfortable and transition to hospice at home
Hospice unable to admit at home today, will see patient tomorrow to plan for discharge home
hgb 8.0, hct 27.5, Na+ 126, K+ 3.4, Chl 85, HCO3 37, BUN 56, Creat 1.0, AST 77, Alk Phos 761, trop 0.131
EKG: SINUS RHYTHM WITH 1ST DEGREE A-V BLOCK
LEFT AXIS DEVIATION
INCOMPLETE RIGHT BUNDLE BRANCH BLOCK
CANNOT RULE OUT ANTERIOR INFARCT , AGE UNDETERMINED
CXR: No acute cardiopulmonary process. Chronic findings, as detailed above.
- Admit to med/surg
- continue current medication regimen per [id number]
- no further testing or aggressive measures
- GOC to be comfort oriented
- Consult Hospice and Case Management
#HFpEF
- continue furosemide, metolazone and spironolactone
#hypertension
- continue metoprolol
#hyperlipidemia
- continue atorvastatin
#chronic hypoxic respiratory failure on 3L O2
- continue albuterol, cefdinir and prednisone
#atrial fibrillation
- continue amiodarone, diltiazem, Eliquis and metoprolol
#IDDM
- AccuCheck AC & HS
- SSI
- continue Lantus, Jardiance
#metastatic prostate cancer
- consult hospice
Code status: DNR
DVT prophylaxis: Eliquis
[2025-04-16] MEDS: VENTOLIN NEBULES INH (20:47)
[2025-04-16 21:48] LABS: Glucose - Point of Care 144 mg/dl (70-99)
[2025-04-16] MEDS: TOPROL XL 25 MG PO (21:49)
[2025-04-16] MEDS: MORPHINE SULFATE 30 MG PO (21:49)
[2025-04-16] MEDS: ELIQUIS 5 MG PO (21:50)
[2025-04-16] MEDS: TYLENOL 1000 MG PO (21:50)
[2025-04-16] MEDS: OMNICEF 300 MG PO (21:50)
[2025-04-16] MEDS: DELTASONE 5 MG PO (21:50)
[2025-04-16] MEDS: ZOLOFT 50 MG PO (21:51)
[2025-04-16] MEDS: LIPITOR 80 MG PO (21:51)
[2025-04-16] MEDS: LASIX 80 MG PO (21:51)
[2025-04-16] MEDS: IMODIUM 4 MG PO (21:51)
[2025-04-16] MEDS: OSCAL 500 + D 500 MG PO (21:51)
[2025-04-16] MEDS: LANTUS 0.14 UNITS SC (21:52)
--- NOTE | 2025-04-16 22:00 | PTCARENOTE ---
Pt received from ED via stretcher at 2130. Pt AAOx3, a little drowsy, and pulled into bed from stretcher. Pt receptive to room and call guzman. Pt bed in lowest position and call guzman within reach. Pt educated on importance of call guzman usage, pt
relays somewhat understanding and cooperation. Bed alarm placed and plugged in. Will continue with current plan of care.
[2025-04-17] VITALS (9 sets, daily range): BP systolic 78–102; BP diastolic 42–62; BMI 27.2
--- NOTE | 2025-04-17 02:28 | DOWNTIME ---
There was a [employer] Client Director Recreation Downtime on 04/17/2025 from 0100 to 04/17/2025 at 0215. Downtime documentation of patient's care, including medication administrations, has been reconciled in the electronic record per guidelines. Refer to the
patient's paper chart under the miscellaneous tab to see printed paper medication records and downtime forms.
[2025-04-17] MEDS: VENTOLIN NEBULES 2.5 MG INH ×2 (07:57→13:17)
[2025-04-17 08:05] LABS: Glucose - Point of Care 138 mg/dl (70-99)
[2025-04-17] MEDS: LASIX 80 MG PO ×2 (09:18→17:09)
[2025-04-17] MEDS: FARXIGA 10 MG PO (09:18)
[2025-04-17] MEDS: MORPHINE SULFATE 30 MG PO ×2 (09:18→21:02)
[2025-04-17] MEDS: OSCAL 500 + D 500 MG PO ×2 (09:19→20:57)
[2025-04-17] MEDS: OMNICEF 300 MG PO ×2 (09:19→20:57)
[2025-04-17] MEDS: IMODIUM 4 MG PO ×2 (09:19→20:57)
[2025-04-17] MEDS: SODIUM CHLORIDE 1 GRAM PO (09:20)
[2025-04-17] MEDS: TYLENOL 1000 MG PO ×2 (09:20→20:57)
[2025-04-17] MEDS: TOPROL XL 25 MG PO ×2 (09:21→21:02)
[2025-04-17] MEDS: ALDACTONE 12.5 MG PO (09:21)
[2025-04-17] MEDS: FEOSOL 325 MG PO (09:22)
[2025-04-17] MEDS: PROTONIX 40 MG PO (09:22)
[2025-04-17] MEDS: ELIQUIS 5 MG PO ×2 (09:22→20:57)
[2025-04-17] MEDS: DELTASONE 5 MG PO ×2 (09:22→21:01)
[2025-04-17] MEDS: PACERONE 200 MG PO (09:23)
--- NOTE | 2025-04-17 09:26 | W.PN.HOSP.TC ---
Today's Communication/Plan
-
see bold
Assessment / Plan
Assessment / Plan
#Acute on chronic hypoxic respiratory failure 2/2 PNA vs. HFpEF
Family wishes to take patient home on hospice
Appreciate hospice and case management, plan for heart home with hospice tomorrow
#HFpEF
- continue furosemide, metolazone and spironolactone
#Acute urinary retention
- Insert Ballard, discharge home with hospice with Ballard
#hypertension
- continue metoprolol
#hyperlipidemia
- continue atorvastatin
#chronic hypoxic respiratory failure on 3L O2
- continue albuterol, cefdinir and prednisone
#atrial fibrillation
- continue amiodarone, diltiazem, Eliquis and metoprolol
#IDDM
- continue Lantus, Jardiance
#metastatic prostate cancer
- hospice
DVT prophylaxis: Eliquis
DNR
Total time spent to see the patient on the floor, examine the patient, review data and lab results, discuss treatment plan with patient, nursing staff around 40 minutes.
Physical Exam
General: Appears chronically ill, no acute distress
HEENT: Normocephalic, Atraumatic, EOMI, MMM
Respiratory: Clear to Auscultation bilaterally
Cardiac: Normal S1/S2, Regular Rate and Rhythm
GI: Soft, Nontender, Nondistended, Normal Bowel Sounds
Extremities: No Clubbing, Cyanosis
Neuro: Nonfocal/Grossly Intact
Anticipated Discharge: Within 24 hours
Subjective/Interval History
-
Date of Service: April 17, 2025
Objective Data
-
Vital Signs:
Vital Signs
Temp Pulse Resp BP Pulse Ox
98.3 F 102 16 97/49 99
04/16/25 23:01 04/17/25 08:01 04/17/25 08:01 04/16/25 23:39 04/17/25 08:01
I&O
04/16/25 04/17/25 04/18/25
06:59 06:59 06:59
Intake Total 120 / 120
Balance 120 / 120
--- NOTE | 2025-04-17 11:39 | HOSPNOTE ---
Spoke with patient and family they are all in agreement with hospice. The equipment was ordered for delivery and the patient will be discharged at 11am. OOH DNR needed on chart. The address is [address] [place] [address]. CM and Attending
aware of plan. Once patient gets home we will sign patient onto hospice services.
[2025-04-17 12:52] LABS: Glucose - Point of Care 209 mg/dl (70-99)
--- NOTE | 2025-04-17 13:06 | CM ---
Per [facility] they are requesting a 11am pickers material handlers tomorrow 04/18/25, OOH DNR has been placed on chart along with ambulance necessity form, IMM completed.
Plan; Home tomorrow by ambulance with [facility].
Patient address
[address]
[place] [address]
[2025-04-17 16:19] LABS: Glucose - Point of Care 219 mg/dl (70-99)
[2025-04-17] MEDS: LIPITOR 80 MG PO (21:01)
[2025-04-17] MEDS: LANTUS 0.14 UNITS SC (22:08)
[2025-04-17] MEDS: ZOLOFT 50 MG PO (22:09)
[2025-04-17 22:15] LABS: Glucose - Point of Care 228 mg/dl (70-99)
[2025-04-18] VITALS (10 sets, daily range): BP systolic 88–123; BP diastolic 45–67; BMI 26.8
--- NOTE | 2025-04-18 04:38 | PTCARENOTE ---
Pt BP averaging 80s/40s by both automatic and manual measurement. Both powderman were notified during the shift. No new medication orders were given due to concern for HR effects. The pt remained asymptomatic throughout, denying dizziness,
lightheadedness, SOB, or chest pain. Skin was warm and dry with pale color and capillary refill <3 seconds. Pulses palpabable and regular. HR monitored, no acute changes noted. Respirations even and unlabored with O2 maintained on 3L via NC.
Neurological status AAOx2-3. Oral intake adequate, urinary output within normal limits. Continued hourly rounds and obtained vital signs every hour post ASSISTANT PROGRAM DIRECTOR discussion. BP improved and stabilized to 100s/60s starting at approx 0220. ASSISTANT PROGRAM DIRECTOR notified of
improvement. Will continue Q1H vs and ongoing monitoring.
--- NOTE | 2025-04-18 08:22 | W.PN.HOSP.TC ---
Addendum entered and electronically signed by Dani Kruse MD 04/18/25 14:54:
Opioid use with dependence
Addendum entered and electronically signed by Dani Kruse MD 04/18/25 14:53:
Non-ischemic myocardial injury from CHF
Original Note:
Today's Communication/Plan
-
Discharge home with hospice today
Assessment / Plan
Assessment / Plan
#Acute on chronic hypoxic respiratory failure 2/2 PNA vs. HFpEF
Family wishes to take patient home on hospice
Appreciate hospice and case management, plan for home with hospice today
#HFpEF
- continue furosemide, metolazone and spironolactone
#Acute urinary retention
- Inserted Ballard, discharge home with hospice with Ballard
#hypertension
- continue metoprolol
#hyperlipidemia
- continue atorvastatin
#chronic hypoxic respiratory failure on 3L O2
- continue albuterol, cefdinir and prednisone
#atrial fibrillation
- continue amiodarone, diltiazem, Eliquis and metoprolol
#IDDM
- continue Lantus, Jardiance
#metastatic prostate cancer
- hospice
DVT prophylaxis: Eliquis
DNR
Physical Exam
General: Appears chronically ill, no acute distress
HEENT: Normocephalic, Atraumatic, EOMI, MMM
Respiratory: Clear to Auscultation bilaterally
Cardiac: Normal S1/S2, Regular Rate and Rhythm
GI: Soft, Nontender, Nondistended, Normal Bowel Sounds
Extremities: No Clubbing, Cyanosis
Neuro: Nonfocal/Grossly Intact
Anticipated Discharge: Today
Subjective/Interval History
-
Date of Service: April 18, 2025
Overnight events noted. Patient has chronic shortness of breath. No fever, no vomiting.
Objective Data
-
Vital Signs:
Vital Signs
Temp Pulse Resp BP Pulse Ox
97.5 F 103 12 108/59 96
04/18/25 08:14 04/18/25 08:14 04/18/25 08:14 04/18/25 08:14 04/18/25 08:14
I&O
04/17/25 04/18/25 04/19/25
06:59 06:59 06:59
Intake Total 120 / 120 120 / 120
Output Total 3900 / 3900
Balance 120 / 120 -3780 / -3780
[2025-04-18] MEDS: MORPHINE SULFATE 30 MG PO (08:57)
[2025-04-18] MEDS: PROTONIX 40 MG PO (08:57)
[2025-04-18] MEDS: SODIUM CHLORIDE 1 GRAM PO (08:57)
[2025-04-18] MEDS: TYLENOL 1000 MG PO (08:57)
[2025-04-18] MEDS: OSCAL 500 + D 500 MG PO (08:57)
[2025-04-18] MEDS: DELTASONE 5 MG PO (08:57)
[2025-04-18] MEDS: IMODIUM 4 MG PO (08:57)
[2025-04-18] MEDS: PACERONE 200 MG PO (08:58)
[2025-04-18] MEDS: ELIQUIS 5 MG PO (08:58)
[2025-04-18] MEDS: LASIX 80 MG PO (08:58)
[2025-04-18] MEDS: OMNICEF 300 MG PO (08:58)
[2025-04-18] MEDS: ALDACTONE 12.5 MG PO (08:58)
[2025-04-18] MEDS: TOPROL XL 25 MG PO (08:58)
[2025-04-18] MEDS: FARXIGA 10 MG PO (08:58)
[2025-04-18] MEDS: FEOSOL 325 MG PO (08:58)
[2025-04-18] MEDS: ZAROXOLYN 5 MG PO (09:04)
--- NOTE | 2025-04-18 09:22 | W.DCSUMMARY ---
Discharge Summary
Discharge Data
Date of Admission: 04/16/25
Date of Discharge: 04/18/25
-
Pending Results: No
Hospital Course
Discharge diagnosis:
Acute on chronic hypoxic respiratory failure
Acute on chronic heart failure with a preserved ejection fraction
Acute hyponatremia
Chronic urinary retention, acute ruled out
Atrial fibrillation
Diabetes
Metastatic prostate cancer
Chronic pain with chronic daily opioid use and dependency
Hospital course:
84-year-old male with a past medical history of metastatic prostate cancer status post radical prostatectomy with osseous metastatic disease, chronic HFpEF, paroxysmal atrial fibrillation, CAD, chronic hypoxic respiratory insufficiency on 3 L
oxygen, T3 compression fracture, chronic anemia, interstitial lung disease, chronic urinary with chronic Ballard catheter, rheumatic heart disease, hypertension, hyperlipidemia, and chronic pain who presented with shortness of breath, somnolence, and
lethargy. He has had multiple admissions for respiratory failure, and CHF exacerbation. He has metastatic prostate cancer with chronic pain. Patient was seen in conjunction with the hospice nurse, and agreed to hospice. Home hospice was set up,
and he is discharged home with hospice. He needs to follow-up with the hospice physician as soon as possible.
Disposition: Home with hospice
Discharge planning: Required 36 minutes
Discharge Plan
-
Patient Disposition: Home with Hospice
Discharge Diagnosis/Procedures: Acute on chronic hypoxic respiratory failure, congestive heart failure, metastatic prostate cancer, chronic urinary retention
Condition: Serious
Diet: As tolerated
Other Services: Hospice
Referrals:
UNKNOWN,NO INTERVIEW [Family Provider]
Prescriptions:
Continued
acetaminophen [Tylenol Extra Strength] 500 mg tablet
1,000 mg PO BID
sertraline 50 mg Tablet
50 mg PO HS Qty: 0
morphine 30 mg tablet
30 mg PO BID
Eliquis 5 mg Tablet
5 mg PO BID Qty: 60 0RF
loperamide 2 mg Tablet
4 mg PO BID
Jardiance 10 mg tablet
10 mg PO DAILY Qty: 30 11RF
albuterol sulfate 2.5 mg /3 mL (0.083 %) Solution For Nebulization
2.5 mg INHALATION R TID
insulin glargine [Lantus Solostar U-100 Insulin] 100 unit/mL (3 mL) insulin pen
14 unit SC HS
pantoprazole 40 mg tablet,delayed release (DR/EC)
40 mg PO DAILY
amiodarone [Pacerone] 200 mg Tablet
200 mg PO DAILY Qty: 30 0RF
spironolactone 25 mg Tablet
12.5 mg PO DAILY Qty: 30 0RF
furosemide 80 mg Tablet
80 mg PO BID@0800,1600 Qty: 60 0RF
metoprolol succinate 25 mg Tablet Extended Release 24 Hr
25 mg PO BID Qty: 60 0RF
diltiazem HCl 180 mg capsule,extended release 24hr
180 mg PO HS
prednisone 5 mg tablet
5 mg PO BID
sodium chloride 1,000 mg Tablet,Soluble
1,000 mg PO DAILY
metolazone 5 mg tablet
5 mg PO MOTH
Discontinued
calcium carbonate-vitamin D3 [Calcium 500 + D] 500 mg-10 mcg (400 unit) Tablet
1 tab PO BID
colestipol 1 gram Tablet
1 g PO BID
atorvastatin 80 mg tablet
80 mg PO HS
insulin aspart U-100 100 unit/mL (3 mL) insulin pen
6 sliding scale dose SC AC
cefdinir 300 mg capsule
300 mg PO BID Qty: 22 0RF
Rx Instructions:
starting 10/9 AM
ferrous sulfate 325 mg (65 mg iron) Tablet
325 mg PO DAILY
Discharge Orders:
Discharge Patient (As Directed); Ordered 04/18/25
Ordered By: Dani Kruse
Discharge Date and Time
Discharge Date/Time: 04/18/25 13:24
Print Language: CAMEROONIAN
[2025-04-18] MEDS: CARDIZEM SR 180 MG PO (09:43)
--- NOTE | 2025-04-18 09:44 | PN.CDI ---
CDI
- -
CDI:
Physician Documentation Request
Admit Date: 04/16/25 15:31
Dear Doctor Do,
Please review the following and provide your response in the progress notes.
Clinical Indicators:
- Patient admit for acute on chronic hypoxic respiratory failure
- 04/16 ER Physician 'chronic pain syndrome on chronic narcotics'
- 'metastatic prostate cancer status post radical prostatectomy with osseous metastatic disease'
- 04/16 H&P home medication
- morphine 30 mg immediate release tablet 30 mg PO BID Pain
- hydromorphone 2 mg tablet 2 mg PO Q4HPRN PRN Breakthrough pain
- Home med morphine sulfate continued on admission
-
If possible, please provide further specificity as outlined below:
Opioid use with dependence
Opioid dependence
Other (please specify)
Use of terms such as suspected, likely, concern for, or probable (associated with a specific diagnosis that is being evaluated, monitored, or treated as if it exists) are acceptable and can be coded in the inpatient setting, when documented at the
time of discharge.
Thank you,
Rambo Clay RN
CDI Specialist
Please use your independent medical judgment in providing your response.
--- NOTE | 2025-04-18 09:50 | PN.CDI ---
CDI
- -
CDI:
Physician Documentation Request
Admit Date: 04/16/25 15:31
Dear Doctor Do,
Please review the following and provide your response in the progress notes.
Documentation in the medical record indicates the following:
Laboratory Tests
04/16/25
11:49
Troponin I 0.131 H*
- 04/17 PN 'Acute on chronic hypoxic respiratory failure 2/2 PNA vs. HFpEF'
- Patient going home on hospice
Please clarify in the progress notes which, if any, of the following is responsible for these troponin levels:
Non-ischemic myocardial injury: please specify cause
Elevated troponins only
Other (please specify)
Use of terms such as suspected, likely, concern for, or probable (associated with a specific diagnosis that is being evaluated, monitored, or treated as if it exists) are acceptable and can be coded in the inpatient setting, when documented at the
time of discharge.
Thank you,
Rambo Clay RN
CDI Specialist
Please use your independent medical judgment in providing your response.
--- NOTE | 2025-04-18 10:52 | CM ---
Patient to return to home today with [facility] with a 1pm continuous pickling line pickler helper, by ambulance, IMM completed. OOH DNR completed.
Plan; Home with family today, 1pm continuous pickling line pickler helper by ambulance.
== END 2025-04-18 13:24 | disposition hospice, home (50) | DRG 193 ==
LOC: 4 WEST ACU 15:31
PROVIDERS: Nurse Practitioner; ADMITTING PHYSICIAN Hospitalist; ATTENDING PHYSICIAN Family Medicine; EMERGENCY PHYSICIAN Student in an Organized Health Care Education/Training Program
DX: J18.9 Pneumonia, unspecified organism (principal); J96.21 Acute and chronic respiratory failure with hypoxia; I50.32 Chronic diastolic (congestive) heart failure; C79.51 Secondary malignant neoplasm of bone; I5A Non-ischemic myocardial injury (non-traumatic); F11.20 Opioid dependence, uncomplicated; I11.0 Hypertensive heart disease with heart failure; Z79.4 Long term (current) use of insulin; E11.9 Type 2 diabetes mellitus without complications; C61 Malignant neoplasm of prostate; Z66 Do not resuscitate; I48.0 Paroxysmal atrial fibrillation; D64.9 Anemia, unspecified; E78.00 Pure hypercholesterolemia, unspecified; G89.4 Chronic pain syndrome; I25.10 Atherosclerotic heart disease of native coronary artery without angina pectoris; Z85.46 Personal history of malignant neoplasm of prostate; Z90.79 Acquired absence of other genital organ(s); Z95.5 Presence of coronary angioplasty implant and graft; Z99.81 Dependence on supplemental oxygen; F32.A Depression, unspecified; I45.10 Unspecified right bundle-branch block
CPT/HCPCS: 71045; 80053; 82962; 84484; 85025; 93005; 94640; 99285